=== PATIENT | female | born 1935 | race Caucasian/White ===

== ENCOUNTER 2017-08-17 12:28 | Observation (INO) | payer MEDICARE ==
[~2017-08-17] VITALS: Ht 152.4 cm; Wt 103.6 kg
[~2017-08-17 12:28] MED LIST: CEFU250T11 PO; CITA20TA4; ESCT10T PO; HYDR-3729 PO; OXYB10TA8; WARF2TAB8; WARF4TAB PO; WRF5T
--- OUTSIDE RECORDS SUMMARY | 2017-08-17 12:33 | XMS REPORT | Continuity of Care Document ---
Author Author [facility] Organization [facility] Address Unknown Phone Unavailable Allergies Active Description Code Type Severity Reaction Onset Reported/Identified Relationship to Patient Clinical Status Yes Penicillins [id number] Drug Allergy Mild N/A 01/17/2009 Medications There is no data. 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 10/04/2014 SHREYAS THEODORE APRN Ot V12.55 PERSONAL HISTORY OF PULMONARY EMBOLISM 10/04/2014 SHREYAS THEODORE APRN Ot V58.61 ANTICOAGULANTS,LT,CURRENT USE 07/18/2015 ESTEBAN VALDERRAMA ANDREW L Ot S22.42XA MULTIPLE FRACTURES OF RIBS, LEFT SIDE, I 07/18/2015 ESTEBAN VALDERRAMA ANDREW L Ot W01.0XXA FALL SAME LEV FROM SLIP/TRIP W/O STRIKE 07/18/2015 ESTEBAN VALDERRAMA ANDREW L Ot Y92.012 BATHROOM OF SINGLE-FAMILY (PRIVATE) HOUS 07/18/2015 ESTEBAN VALDERRAMA ANDREW L Ot Y99.8 OTHER EXTERNAL CAUSE STATUS 10/18/2015 PAULO DALEY, YADI Betts Ot S39.93XA UNSPECIFIED INJURY OF PELVIS, INITIAL EN 10/18/2015 PAULO DALEY, YADI Betts Ot W19.XXXA UNSPECIFIED FALL, INITIAL ENCOUNTER 10/18/2015 PAULO DALEY, YADI Betts Ot Y99.8 OTHER EXTERNAL CAUSE STATUS 10/26/2015 PAULO DALEY, YADI Betts Ot S39.93XA UNSPECIFIED INJURY OF PELVIS, INITIAL EN 10/26/2015 PAULO DALEY, YADI Betts Ot W19.XXXA UNSPECIFIED FALL, INITIAL ENCOUNTER 10/26/2015 PAULO DALEY, YADI Betts Ot Y99.8 OTHER EXTERNAL CAUSE STATUS 10/26/2015 PAULO DALEY, YADI Betts Ot S39.93XA UNSPECIFIED INJURY OF PELVIS, INITIAL EN 10/26/2015 PAULO DALEY, YADI Betts Ot W19.XXXA UNSPECIFIED FALL, INITIAL ENCOUNTER 10/26/2015 PAULO DALEY, YADI Betts Ot Y99.8 OTHER EXTERNAL CAUSE STATUS 11/09/2015 PAULO DALEY, YADI Betts Ot S39.93XA UNSPECIFIED INJURY OF PELVIS, INITIAL EN 11/09/2015 PAULO DALEY, YADI Betts Ot W19.XXXA UNSPECIFIED FALL, INITIAL ENCOUNTER 11/09/2015 PAULO DALEY, YADI Betst Ot Y99.8 OTHER EXTERNAL CAUSE STATUS 11/15/2015 PAULO DALEY, YADI Betts Ot S39.93XA UNSPECIFIED INJURY OF PELVIS, INITIAL EN 11/15/2015 PAULO DALEY, YADI Betts Ot W19.XXXA UNSPECIFIED FALL, INITIAL ENCOUNTER 11/15/2015 PAULO DALEY, YADI Betts Ot Y99.8 OTHER EXTERNAL CAUSE STATUS Procedures There is no data. Results There is no data. Encounters ACCT No. Visit Date/Time Discharge Status Pt. Type Provider Facility Loc./Unit Complaint [id number] 10/17/2015 15:09:00 10/17/2015 23:59:59 CLS Outpatient YADI BATES MD [facility] RAD GROIN [id number] 07/18/2015 11:04:00 07/18/2015 11:56:00 DIS Emergency ANDREW ORELLANA DO [facility] ER [id number] 10/04/2014 12:11:00 10/04/2014 16:32:00 DIS Emergency HSREYAS THEODORE APRN [facility] ER [id number] 01/30/2011 14:12:00 Document Registration [id number] 12/04/2009 07:58:00 Document Registration
--- NOTE | 2017-08-17 12:49 | ED Fall/Injury ---
General Chief Complaint: Trauma-Non Activation Stated Complaint: FALL Source: patient Exam Limitations: no limitations History of Present Illness Date Seen by Provider: Aug 17, 2017 Time Seen by Provider: 12:47 Initial Comments to ER with reports of a fall. [place] at the hair salon when she tripped over the curb. She landed face first and has a large hematoma over the left eyebrow. No loss of consciousness, no neck pain. She is on warfarin for history of DVT. She has an abrasion to the dorsal aspect of the left proximal forearm. No hip pain or other extremity pain. Complains of left upper arm pain. Occurred: just prior to arrival Severity: moderate Injuries/Pain Location: head, upper extremity Context: unknown Loss of Consciousness: no loss of consciousness Associated Symptoms (Fall): No Confusion, No Headache, No Neck Pain Allergies and Home Medications Allergies Coded Allergies: Penicillins (Verified Allergy, Mild, 08/17/17) Home Medications Cholecalciferol (Vitamin D3) 2,000 Unit Capsule, 2,000 UNIT PO DAILY, (Reported) Citalopram Hydrobromide 20 Mg Tablet, 20 MG PO DAILY, (Reported) Hydrocodone/Acetaminophen 1 Each Tablet, 0.5-1 EACH PO Q4H PRN for PAIN-SEVERE Prescribed by: SHREYAS THEODORE on 08/17/17 1429 Ondansetron 8 Mg Tab.rapdis, 8 MG PO Q6H PRN for NAUSEA/VOMITING-1ST LINE Prescribed by: SHREYAS THEODORE on 08/17/17 1429 Oxybutynin Chloride 10 Mg Tab.er.24, 10 MG PO DAILY, (Reported) Warfarin Sodium 2 Mg Tablet, 5 MG PO DAILY, (Reported) TAKES 2 & 1/2 (2MG) TABLET Patient Home Medication List Home Medication List Reviewed: Yes Review of Systems Constitutional: see HPI Eyes: No Symptoms Reported Ears, Nose, Mouth, Throat: no symptoms reported Respiratory: no symptoms reported Cardiovascular: no symptoms reported Genitourinary: no symptoms reported Musculoskeletal: see HPI Skin: no symptoms reported Psychiatric/Neurological: No Symptoms Reported Past Wrtupug-Oaxgcg-Amerbe Hx Past Medical History Abdominal, Appendectomy, Orthopedic Diverticulosis Arthritis Cataract Anxiety, Depression Physical Exam Vital Signs Vital Signs - First Documented 08/17/17 12:54 Temp 98.1 Pulse 78 Resp 18 B/P (MAP) 137/79 (98) Pulse Ox 92 O2 Delivery Room Air Capillary Refill : General Appearance: WD/WN, no apparent distress HEENT: PERRL/EOMI, normal ENT inspection, other (large hematoma without laceration over the left forehead just above the eyebrow) Neck: non-tender, full range of motion Cardiovascular: regular rate, rhythm, no murmur Respiratory: normal breath sounds, no respiratory distress, no accessory muscle use Gastrointestinal: normal bowel sounds, non tender Extremities: normal range of motion, non-tender, other (abrasion posterior aspect proximal left forearm. No tenderness at the elbow. No tenderness in the forearm. No tenderness of the hand. There is tenderness of the shoulder. Limited range of motion at the shoulder.) Neurologic/Psychiatric: alert, normal mood/affect, oriented x 3 Skin: normal color, warm/dry Whiting Coma Score Best Eye Response: (4) Open Spontaneously Best Verbal Response: (5) Oriented Best Motor Response: (6) Obeys Commands Whiting Total: 15 Progress/Results/Core Measures Results/Orders Lab Results Laboratory Tests Test 08/17/17 12:43 Range/Units White Blood Count 4.5 4.3-11.0 10^3/uL Red Blood Count 3.97 L 4.35-5.85 10^6/uL Hemoglobin 13.3 11.5-16.0 G/DL Hematocrit 39 35-52 % Mean Corpuscular Volume 98 80-99 FL Mean Corpuscular Hemoglobin 34 25-34 PG Mean Corpuscular Hemoglobin Concent 34 32-36 G/DL Red Cell Distribution Width 13.7 10.0-14.5 % Platelet Count 197 130-400 10^3/uL Mean Platelet Volume 9.4 7.4-10.4 FL Neutrophils (%) (Auto) 61 42-75 % Lymphocytes (%) (Auto) 27 12-44 % Monocytes (%) (Auto) 9 0-12 % Eosinophils (%) (Auto) 3 0-10 % Basophils (%) (Auto) 0 0-10 % Neutrophils # (Auto) 2.7 1.8-7.8 X 10^3 Lymphocytes # (Auto) 1.2 1.0-4.0 X 10^3 Monocytes # (Auto) 0.4 0.0-1.0 X 10^3 Eosinophils # (Auto) 0.1 0.0-0.3 10^3/uL Basophils # (Auto) 0.0 0.0-0.1 10^3/uL Prothrombin Time 29.8 H 12.2-14.7 SEC INR Comment 2.8 H 0.8-1.4 Sodium Level 141 135-145 MMOL/L Potassium Level 4.8 3.6-5.0 MMOL/L Chloride Level 110 H 98-107 MMOL/L Carbon Dioxide Level 21 21-32 MMOL/L Anion Gap 10 5-14 MMOL/L Blood Urea Nitrogen 16 7-18 MG/DL Creatinine 0.99 0.60-1.30 MG/DL Estimat Glomerular Filtration Rate 54 BUN/Creatinine Ratio 16 Glucose Level 100 70-105 MG/DL Calcium Level 9.2 8.5-10.1 MG/DL My Orders Orders - SHREYAS THEODORE APRN Cbc With Automated Diff (08/17/17 12:34) Basic Metabolic Panel (08/17/17 12:34) Protime With Inr (08/17/17 12:34) Ct Head/Cervical Spine Wo (08/17/17 12:34) Chest 1 View, Ap/Pa Only (08/17/17 12:34) Humerus, Left, 2 Views (08/17/17 12:34) Iv Heplock-Insert (Order) (08/17/17 12:34) Ondansetron Injection (Zofran Injectio (08/17/17 14:30) Hydrocodone/Apap 5/325 Tablet (Lortab 5 (08/17/17 14:30) Ondansetron Oral Dissolve Tab (Zofran (08/17/17 14:31) Medications Given in ED Current Medications Medications Dose Ordered Sig/Ben Route Start Time Stop Time Status Last Admin Dose Admin Acetaminophen/ Hydrocodone Bitart 0.5 tab ONCE ONCE PO 08/17/17 14:30 08/17/17 14:31 DC 08/17/17 14:38 0.5 TAB Ondansetron HCl 4 mg STK-MED ONCE .ROUTE 08/17/17 14:31 08/17/17 14:33 DC 08/17/17 14:39 4 MG Vital Signs/I&O 08/17/17 08/17/17 12:54 13:03 Temp 98.1 98.1 Pulse 78 78 Resp 18 18 B/P (MAP) 137/79 (98) 137/79 (98) Pulse Ox 92 92 O2 Delivery Room Air Diagnostic Imaging Diagonstic Imaging: CT Comments NAME: AYAN BOGGS [facility] REC#: [id number] PT STATUS: REG ER : 1935 PHYSICIAN: SHREYAS THEODORE APRN ADMIT DATE: 08/17/17/ER Draft Date of Exam:08/17/17 CT HEAD/CERVICAL SPINE WO PROCEDURE: CT head and CT cervical spine without contrast. TECHNIQUE: Multiple contiguous axial images were obtained through the brain and cervical spine without the use of intravenous contrast. Sagittal and coronal reformations through the cervical spine were then performed. INDICATION: Fall. COMPARISON: 01/30/2011. FINDINGS: Head CT: No acute intracranial hemorrhage, mass effect, or edema is seen. There is moderate diffuse atrophy. The ventricles appear normal. There is prominent hypodensity throughout the periventricular and subcortical white matter which is increased from 2010 and is nonspecific but probably related to chronic microvascular ischemic disease. There is a large left frontal scalp hematoma. No acute fracture is suspected. The paranasal sinuses and mastoids are clear, as visualized. Cervical spine CT: No acute fracture or osseous destructive process is seen. There is minimal anterior subluxation of C6 on C7 which is likely degenerative. Vertebral body heights are maintained. There is severe disc space disease and moderate spondylosis at C5/C6 and C6/C7. Uncovertebral joint spurring and facet arthropathy results in some central and izxkhtbl-fo-parvol foraminal narrowing at these levels. No acute soft tissue abnormality is seen. IMPRESSION: 1. No evidence of an acute intracranial abnormality. Large left frontal scalp hematoma. Chronic changes, as described above. 2. No evidence of an acute cervical spine fracture. Degenerative changes, as described above. Dictated on workstation # [id number] Dict: 08/17/17 1328 Trans: 08/17/17 1334 [id number] [id number] Interpreted by: ARVIN JUAREZ DO Electronically signed by: NAME: AYAN BOGGS [facility] REC#: [id number] PT STATUS: REG ER : 1935 PHYSICIAN: SHREYAS THEODORE APRN ADMIT DATE: 08/17/17/ER Draft Date of Exam:08/17/17 HUMERUS, LEFT, 2 VIEWS Indication: Shoulder pain after fall. Findings: There appears be a nondisplaced fracture of the left humeral head and neck. There is slight cortical irregularity both medially and laterally. Distal humerus appears be intact. Impression: Findings suspect for minimally displaced fracture of the left humeral head and neck. Dictated on workstation # [id number] Dict: 08/17/17 1354 Trans: 08/17/17 1358 [id number] [id number] Interpreted by: CHAKA CORONADO MD Electronically signed by: Departure Communication (Admissions) 1425- she reports a little nausea, no vomiting GCS remains 15. X-ray shows minimally displaced proximal humerus fracture. We'll place her in a sling. She lives at home alone but her niece is coming to the hospital and I'll discuss having the patient stay with the knees or the knee stay with the patient for head injury observation for at least the next 24 hours. 1515- patient's nieces are here. I did discuss the plan with them. They agree to stay with her for 24 hours to observe and return her to the emergency room for any severe headache, vomiting or confusion. 1630-patient feels that she should be admitted for observation, she is very concerned about her head injury.I spoke with Dr. Acharya. Agrees to admit for observation. Impression Primary Impression: Fracture of proximal end of left humerus Additional Impressions: Scalp hematoma Closed head injury Disposition: ADMITTED INPATIENT Condition: Stable Departure-Patient Inst. Decision time for Depature: 14:27 Referrals: YADI ACHARYA MD (PCP/Family) Primary Care Physician Patient Instructions: HEMATOMA, Upper Arm Fracture Add. Discharge Instructions: 1. Wear the sling at all times except when showering. Pain medication as directed. Return promptly to ER for any severe headache, confusion, any other concerns. Follow-up with your doctor this week and call this week to make an appointment with orthopedics. You may call orthopedic surgeon of your choosing though treatment for this will likely be nonoperative. All discharge instructions reviewed with patient and/or family. Voiced understanding. Scripts Ondansetron (Zofran Odt) 8 Mg Tab.rapdis 8 MG PO Q6H PRN for NAUSEA/VOMITING-1ST LINE, #10 TAB Prov: SHREYAS THEODORE RESEARCH PROFESSOR 08/17/17 Hydrocodone/Acetaminophen (Beaver 5-325 Tablet) 1 Each Tablet 0.5-1 EACH PO Q4H PRN for PAIN-SEVERE, #20 TAB Prov: SHREYAS THEODORE APRN 08/17/17 Copy Copies To 1: YADI ACHARYA MD, PETER J APRN Aug 17, 2017 12:49
[2017-08-17 12:52] LABS: BASOPHILS % (AUTO) 0 % (0-10); EOSINOPHILS # (AUTO) 0.1 10^3/uL (0.0-0.3); EOSINOPHILS % (AUTO) 3 % (0-10); HEMATOCRIT 39 % (35-52); HEMOGLOBIN 13.3 G/DL (11.5-16.0); LYMPHOCYTES # (AUTO) 1.2 X 10^3 (1.0-4.0); LYMPHOCYTES % (AUTO) 27 % (12-44); MEAN CORPUSCULAR HEMOGLOBIN 34 PG (25-34); MEAN CORPUSCULAR HGB CONC 34 G/DL (32-36); MEAN CORPUSCULAR VOLUME 98 FL (80-99); MEAN PLATELET VOLUME 9.4 FL (7.4-10.4); MONOCYTES # (AUTO) 0.4 X 10^3 (0.0-1.0); MONOCYTES % (AUTO) 9 % (0-12); NEUTROPHILS # (AUTO) 2.7 X 10^3 (1.8-7.8); NEUTROPHILS % (AUTO) 61 % (42-75); PLATELET COUNT 197 10^3/uL (130-400); RED BLOOD COUNT 3.97 10^6/uL (4.35-5.85); RED CELL DISTRIBUTION WIDTH 13.7 % (10.0-14.5); WHITE BLOOD COUNT 4.5 10^3/uL (4.3-11.0)
[2017-08-17 13:03] LABS: INR 2.8 (0.8-1.4); PROTHROMBIN TIME PATIENT 29.8 SEC (12.2-14.7)
[2017-08-17 13:08] LABS: CALCIUM 9.2 MG/DL (8.5-10.1); CREATININE SERUM 0.99 MG/DL (0.60-1.30); POTASSIUM 4.8 MMOL/L (3.6-5.0)
--- NOTE | 2017-08-17 13:35 | Diagnostic Imaging Report ---
PROCEDURE: CT head and CT cervical spine without contrast. TECHNIQUE: Multiple contiguous axial images were obtained through the brain and cervical spine without the use of intravenous contrast. Sagittal and coronal reformations through the cervical spine were then performed. INDICATION: Fall. COMPARISON: 01/30/2011. FINDINGS: Head CT: No acute intracranial hemorrhage, mass effect, or edema is seen. There is moderate diffuse atrophy. The ventricles appear normal. There is prominent hypodensity throughout the periventricular and subcortical white matter which is increased from 2010 and is nonspecific but probably related to chronic microvascular ischemic disease. There is a large left frontal scalp hematoma. No acute fracture is suspected. The paranasal sinuses and mastoids are clear, as visualized. Cervical spine CT: No acute fracture or osseous destructive process is seen. There is minimal anterior subluxation of C6 on C7 which is likely degenerative. Vertebral body heights are maintained. There is severe disc space disease and moderate spondylosis at C5/C6 and C6/C7. Uncovertebral joint spurring and facet arthropathy results in some central and jwztfbsn-rz-atswqf foraminal narrowing at these levels. No acute soft tissue abnormality is seen. IMPRESSION: 1. No evidence of an acute intracranial abnormality. Large left frontal scalp hematoma. Chronic changes, as described above. 2. No evidence of an acute cervical spine fracture. Degenerative changes, as described above. Dictated by: Dictated on workstation # [id number]
--- NOTE | 2017-08-17 13:56 | Diagnostic Imaging Report ---
Indication: Low back pain Comparison made with prior examination of 10/04/2014. Findings: There is cardiomegaly. There is some mild venous congestion. No pleural effusion or pneumothorax. Mediastinum is unremarkable. Impression: Cardiomegaly and mild central pulmonary venous congestion. Dictated by: Dictated on workstation # [id number]
--- NOTE | 2017-08-17 13:58 | Diagnostic Imaging Report ---
Indication: Shoulder pain after fall. Findings: There appears be a nondisplaced fracture of the left humeral head and neck. There is slight cortical irregularity both medially and laterally. Distal humerus appears be intact. Impression: Findings suspect for minimally displaced fracture of the left humeral head and neck. Dictated by: Dictated on workstation # [id number]
[2017-08-17] MEDS ORDERED: ONDA8TAB9 PO (14:29)
[2017-08-17] MEDS ORDERED: HYDR-757 PO (14:29)
[2017-08-17] MEDS ORDERED: HYDROcodone/APAP 5 MG/325 MG (LORTAB) TAB PO ONE (14:30)
[2017-08-17] MEDS ORDERED: ONDANSETRON 4 MG/2 ML (SDV) Z0FRAN IVP ONE (14:30)
[2017-08-17] MEDS ORDERED: ONDANSETRON 4 MG (ZOFRAN) ORAL DISSOLVE TAB ONE (14:31)
[2017-08-17] MEDS ORDERED: ONDANSETRON 4 MG/2 ML (SDV) Z0FRAN IV PRN (16:45)
[2017-08-17] MEDS ORDERED: CATHETER FLUSH 10 ML SYR IV PRN (16:45)
[2017-08-17 16:46] VITALS: BP 176/77
[2017-08-17] MEDS: NS IV 1000 ML 1,000 ML IV SCH (17:31)
[2017-08-17 19:00] VITALS: BP 143/67
[2017-08-17] MEDS: HYDROcodone/APAP 5 MG/325 MG (LORTAB) TAB PO PRN (21:58)
[2017-08-18] VITALS: BP 136/62
[2017-08-18] MEDS: NS IV 1000 ML 1,000 ML IV SCH ×2 (02:45→14:05)
[2017-08-18 04:00] VITALS: BP 154/71
[2017-08-18 06:02] LABS: BASOPHILS % (AUTO) 0 % (0-10); EOSINOPHILS # (AUTO) 0.1 10^3/uL (0.0-0.3); EOSINOPHILS % (AUTO) 1 % (0-10); HEMATOCRIT 34 % (35-52); HEMOGLOBIN 11.2 G/DL (11.5-16.0); LYMPHOCYTES # (AUTO) 0.9 X 10^3 (1.0-4.0); LYMPHOCYTES % (AUTO) 16 % (12-44); MEAN CORPUSCULAR HEMOGLOBIN 33 PG (25-34); MEAN CORPUSCULAR HGB CONC 33 G/DL (32-36); MEAN CORPUSCULAR VOLUME 99 FL (80-99); MEAN PLATELET VOLUME 9.5 FL (7.4-10.4); MONOCYTES # (AUTO) 0.7 X 10^3 (0.0-1.0); MONOCYTES % (AUTO) 13 % (0-12); NEUTROPHILS # (AUTO) 3.9 X 10^3 (1.8-7.8); NEUTROPHILS % (AUTO) 70 % (42-75); PLATELET COUNT 184 10^3/uL (130-400); RED BLOOD COUNT 3.43 10^6/uL (4.35-5.85); RED CELL DISTRIBUTION WIDTH 13.8 % (10.0-14.5); WHITE BLOOD COUNT 5.6 10^3/uL (4.3-11.0)
[2017-08-18 06:09] LABS: INR 2.8 (0.8-1.4); PROTHROMBIN TIME PATIENT 29.5 SEC (12.2-14.7)
[2017-08-18] MEDS: HYDROcodone/APAP 5 MG/325 MG (LORTAB) TAB PO PRN ×2 (08:13→16:31)
[2017-08-18 08:19] VITALS: BP 127/60
--- NOTE | 2017-08-18 08:50 | History & Physical-Hospitalist ---
History of Present Illness HPI/Chief Complaint Mrs. nunez is an 82-year-old white female who reports she was in her usual state of health until leaving the [employer] shop the afternoon of the fourth. She tripped falling on outstretched left arm hit the right side of her for head. She doesn't believe she lost consciousness but was dazed by the fall and noted significant left shoulder pain and left for head pain. She was brought to the emergency room where was noted that she had a minimally displaced left humeral head fracture and a large left forehead hematoma. 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 Her INR was 2.[address] head scan revealed no intracranial pathology just a large left forehead and periorbital hematoma. She was going to be discharged from the emergency room but became very lightheaded and weak apparently just trying to get into the car from the wheelchair and stated that there was no way she is going to be in the care for herself at home. She reported no previous problems lightheadedness chest discomfort palpitations or falls. She was subsequently admitted on observation status. Date Seen 08/18/17 Time Seen by Provider: 08:00 Attending Physician Yadi Bates MD PCP Yadi Bates MD Referring Physician Date of Admission Aug 17, 2017 at 16:07 Home Medications & Allergies Home Medications Reviewed patient Home Medication Reconciliation performed by pharmacy medication reconciliations testing and regulating technician and/or nursing. Patients Allergies have been reviewed. Allergies Allergies Coded Allergies Penicillins (Verified Allergy, Mild, 08/17/17) Past Znanoft-Ehqgxh-Booufa Hx Past Med/Social Hx: Reviewed and Corrections made Patient Social History Alcohol Use: Denies Use Recreational Drug Use: No Smoking Status: Never a Smoker Physical Abuse Screen: No Sexual Abuse: No Recent Foreign Travel: No Contact w/other who traveled: No Recent Hopitalizations: No Recent Infectious Disease Expo: No Seasonal Allergies Seasonal Allergies: No Past Medical History Surgeries: Abdominal, Appendectomy, Orthopedic Cardiac: Deep Vein Thrombosis Gastrointestinal: Gastroesophageal Reflux, Diverticulosis Musculoskeletal: Arthritis HEENT: Cataract Psychosocial: Anxiety, Depression History of Blood Disorders: Yes (DVT/PE) Family History Cardiovascular disease G8 BROTHER Hypertension G8 BROTHER Myocardial infarction 19 MOTHER Respiratory disorder 19 FATHER G8 BROTHER Review of Systems Constitutional: see HPI; No chills, No diaphoresis; dizziness; No fever, No malaise; weakness Cardiovascular: no symptoms reported, see HPI Gastrointestinal: other (Patient denies nausea vomiting diarrhea constipation or bright red blood per rectum no melena either.) Physical Exam Physical Exam Vital Signs Vital Signs - First Documented 08/17/17 12:54 Temp 98.1 Pulse 78 Resp 18 B/P (MAP) 137/79 (98) Pulse Ox 92 O2 Delivery Room Air Capillary Refill : Less Than 3 SecondsLess Than 3 Seconds General Appearance: Mild Distress, Obese HEENT: Other (Left forehead and left periorbital swelling. The eyes swollen shut and purple unable to evaluate vision but it been normal previous to this morning right pupil 4 mm reactive unremarkable conjunctivae on the right.) Neck: Full Range of Motion Respiratory: Chest Non Tender, Lungs Clear, Normal Breath Sounds, No Accessory Muscle Use, No Respiratory Distress Cardiovascular: Regular Rate, Rhythm, No Gallop, No JVD, Normal Peripheral Pulses, Other (2/6 systolic ejection murmur heard best at the left lower sternal border and second right intercostal space without evidence for pulsus parvus or tardus.) Extremity: Normal Capillary Refill, Non Tender, Other (Trace bilateral pedal edema no evidence for venous insufficiency with small vessel varicosities.) Results Results/Procedures Labs Laboratory Tests 08/17/17 12:43 08/18/17 05:21 Patient resulted labs reviewed. Assessment/Plan Admission Diagnosis /P1. Status post fall resulting in left minimally displaced humeral head fracture and large left forehead and periorbital contusion. The patient is at baseline a frail 82 and lives alone at home. She does have someone who can stay with her starting tomorrow. Will DC IV fluids have this a.m. consult physical therapy to evaluate gait and instruction with the usage of a cane. She will require the usage of a sling for 4-6 weeks and when necessary pain medication. Will plan discharge tomorrow when family can be available to stay with her for several days. 2. 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 3. Overactive bladder will resume at bedtime Ditropan tonight. Admission Status: Observation Reason for Inpatient Admission: See above Clinical Quality Measures DVT/VTE Risk/Contraindication: Risk Factor Score Per Nursin RFS Level Per Nursing on Admit: 4+=Very High YADI BATES MD Aug 18, 2017 08:50
[2017-08-18] MEDS ORDERED: CITA20TA9 PO (09:13)
[2017-08-18] MEDS ORDERED: OXYB10TA PO (09:13)
[2017-08-18] MEDS ORDERED: CHOL20003 PO (09:13)
[2017-08-18] MEDS ORDERED: WARF2TAB8 PO (09:13)
--- NOTE | 2017-08-18 11:07 | Physical Therapy Evaluation ---
PT Evaluation-General Medical Diagnosis Admission Date Aug 17, 2017 at 16:07 Medical Diagnosis: left humeral fracture/closed head injury Onset Date: Aug 17, 2017 Therapy Diagnosis Therapy Diagnosis: generalized weakness/debility Height/Weight Height (Feet): 5 Height (Inches): 0.00 Weight (Pounds): 228 Weight (Ounces): 8.0 Precautions Precautions/Isolations: Fall Prevention, Standard Precautions Weight Bear Status Right Lower Extremity: Right Weight Bearing/Tolerated Left Lower Extremity: Left Weight Bearing/Tolerated Referral Physician: Marck Reason for Referral: Evaluation/Treatment Medical History Pertinent Medical History: Arthritis Current History tripped over curb coming out of hair appointment resulting in left proximal humeral fracture and facial hematoma Reviewed History: Yes Social History Home: Apartment Current Living Status: Alone Entry Into Home: Level Entry Prior/Core FIM Prior Level of Function Functional [place] Measure 0=Not Assessed/NA 4=Minimal Assistance 1=Total Assistance 5=Supervision or Setup 2=Maximal Assistance 6=Modified [place] 3=Moderate Assistance 7=Complete [place] Bed Mobility: 7 Transfers (B,C,W/C) (FIM): 7 Gait: [address] PT Evaluation-Current Subjective Patient agrees to PT. Pain Numeric Pain Scale: 5-Moderate Pain Location: Left Location Body Site: Shoulder Pain Description: Acute Objective Patient Orientation: Normal For Age Problem Solving: Fair ROM/Strength ROM Lower Extremities bilateral LE WNL Strength Lower Extremities 4/5 grossly bilateral LE Integumentary/Posture Integumentary refer to nursing notes Transfers Functional [place] Measure 0=Not Assessed/NA 4=Minimal Assistance 1=Total Assistance 5=Supervision or Setup 2=Maximal Assistance 6=Modified [place] 3=Moderate Assistance 7=Complete [place] Transfers (B, C, W/C) (FIM): 5 Scootin Supine to/from Sit: 5 Sit to/from Stand: 5 Gait Mode of Locomotion: Walk Anticipated Mode of Locomotion: Walk Gait (FIM): 5 Distance (FIM): 3=150 ft Distance: 150' Gait Level of Assist: 5 Gait Assistive Device: Cane Small Base Quad Comments/Gait Description slow, decreased tasia and gait sequence (patient has SBQC established at home ) Balance Sitting Static: Normal Sitting Dynamic: Normal Standing Static: Fair Standing Dynamic: Fair Assessment/Needs 82 y.o. female, will be seen short term by skilled PT to address functional mobility to ensure safe return to home with niece. Patient has no c/o or concerns. Rehab Potential: Fair PT Short Term Goals Short Term Goals Time Frame: Aug 21, 2017 Transfers (B,C,W/C) (FIM): 5 Gait (FIM): 5 Distance (FIM): 3=150 ft Gait Assistive Device: Cane Single Point, Cane Small Base Quad PT Plan Treatment/Plan Treatment Plan: Continue Plan of Care Treatment Plan: Bed Mobility, Education, Functional Activity Cintia, Functional Strength, Gait, Safety, Therapeutic Exercise, Transfers Treatment Duration: Aug 21, 2017 Frequency: 4 times per week Estimated Hrs Per Day: .25 hour per day Patient and/or Family Agrees t: Yes Safety Risks/Education Patient Education: Safety Issues Teaching Recipient: Patient Teaching Methods: Discussion Response to Teaching: Verbalize Understanding Discharge Recommendations Therapy D/C Recommendations: Home w/ Family Support Time/GCodes Time In: 1035 Time Out: 1049 Total Billed Treatment Time: 14 Total Billed Treatment 1 visit EVModC 14 min G Codes Necessary: Yes PT/OT Therapy GCodes Therapy Functional Limitation: Physical Therapy Test(s)/Tool used to determine: Level of Assistance Scale Functional Limitation-Current Charge Code: MOBCUR Modifier: CJ Functional Limitation-Goal Charge Code: MOBGOAL Modifier: SALOME DIXON PT Aug 18, 2017 11:06
--- NOTE | 2017-08-18 11:40 | Occupational Therapy Eval ---
OT Evaluation-General/PLF Medical Diagnosis Admission Date Aug 17, 2017 at 16:07 Medical Diagnosis: left humeral fracture/closed head injury Onset Date: Aug 17, 2017 Therapy Diagnosis Therapy Diagnosis: Weakness, decreased ADL skills Height/Weight Height (Feet): 5 Height (Inches): 0.00 Weight (Pounds): 228 Weight (Ounces): 8.0 Precautions Precautions/Isolations: Fall Prevention, Standard Precautions Safety Interventions: Bed Exit Alarm Weight Bear Status Non weight bearing in left UE. Sling on when out of bed. Referral Physician: Marck Referral Reason: Activity Tolerance, Self Care, Evaluation/Treatment, Strengthening/ROM Medical History Pertinent Medical History: Arthritis Additional Medical History Diverticulosis, anxiety, cataracts Current History Pt. fell coming out of hair salon. Hit her head and fx her left humeral head and neck. Reviewed History: Yes Social History Home: Apartment Current Living Status: Alone Entry Into Home: Level Entry ADL-Prior Level of Function ADL PLOF Comments Pt. states that she was fully independent with all ADLs. Lives on her own. Has a walker and cane but does not use it. DME/Equipment Comments walker and cane. Drive Self: Yes OT Current Status Subjective Pt. does not report pain level. Appearance Pt. in bed. Agrees to work with OT. Mental Status/Objective Patient Orientation: Person, Place, Time, Situation Attachments: IV Current Glasses/Contacts: Yes Hand Dominance: Right Upper Extremity ROM WFL- Right UE No movement- Left UE Edema: Pt. has swelling in left UE. Left UE in sling. Pt. is educated on positioning left UE on pillows while in bed, without sling on for comfort. ADL-Treatment Functional [place] Measure 0=Not Assessed/NA 4=Minimal Assistance 1=Total Assistance 5=Supervision or Setup 2=Maximal Assistance 6=Modified [place] 3=Moderate Assistance 7=Complete IndependenceIRFPAI Quality Coding Scale 6 Independent with activity with or without an assistive device 5 Patient requires set up or clean up by helper. Patient completes activity by themselves 4 Supervision or touching assist (CGA). [place] provide cues , steadying assist 3 The helper provides less than half the effort to complete the activity 2 The helper provides more than half the effort to complete the activity 1 Dependent. The helper does all the effort to complete an activity 7 Patient refused to complete or attempt activity 9 The patient did not perform the activity before the current illness or injury 88 Not attempted due to Medical conditions or safety concerns Transfers (B, C, W/C) (FIM): 3 (Pt. requires mod assist for supine-sit and sit- stand. Min assist to ambulate to bathroom. Pt. requests to sit for awhile to see if she can have a BM. Pt. given call cord.) Toilet/Commode Transfer (FIM): 4 OT encourages pt. to shower. Pt. states, "I would really rather not today." Pt. does transfer supine-sit, and sit-supine with mod assist. OT gathers ice and clean pillow cases to re-position pt. Pt. then requests to ambulate to the bathroom, as she has to have BM. Transfers again supine-sit with mod assist, and ambulated to bathroom. Pt. in bathroom with all needs met, and encouraged to pull call string when done. Pt. verbalizes understanding. Other Treatments Pt. states that her niece is coming to stay with her tomorrow, and will be with her all the time. Pt. is educated on wearing loose, bagging shirts at home, and technique for putting them on. Pt. is also educated on toilet tongs, and using appropriate shoes at home that will be easy for slip on and off. Education OT Patient Education: Correct positioning, Modified ADL techniques, Progress toward Goal/Update tx plan, Purpose of tx/functional activities, Reviewed precautions, Rehab process, Transfer techniques Teaching Recipient: Patient Teaching Methods: Demonstration, Discussion Response to Teaching: Verbalize Understanding, Return Demonstration OT Short Term Goals Short Term Goals Time Frame: Aug 25, 2017 Eating(FIM): 5 Grooming(FIM): 5 Bathing(FIM): 4 Upper Body Dressing(FIM): 4 Lower Body Dressing(FIM): 5 Toileting(FIM): 5 Transfers (B,C,W/C) (FIM): 5 Toilet/Commode Transfer(FIM): 5 Shower Transfer(FIM): 5 Additional Short Term Goals: 1-Demonstrate ADL Tasks, 2-Verbalize Understanding , 3-ImproveStrength/Cintia 1=Demonstrate adherence to instructed precautions during ADL tasks. 2=Patient will verbalize/demonstrate understanding of assistive devices/ modifications for ADL. 3=Patient will improve strength/tolerance for activity to enable patient to perform ADL's. OT Casting Sorter Goals Jail Goals Time Frame: Sep 01, 2017 Eating (FIM): 6 Grooming(FIM): 6 Bathing(FIM): 5 Upper Body Dressing(FIM): 6 Lower Body Dressing(FIM): 6 Toileting(FIM): 6 Transfers (B,C,W/C) (FIM): 6 Toilet/Commode Transfer(FIM): 6 Shower Transfer(FIM): 5 Additional Goals: 1-Demonstrate ADL Tasks, 2-Verbalize Understanding, 3- ImproveStrength/Cintia 1=Demonstrate adherence to instructed precautions during ADL tasks. 2=Patient will verbalize/demonstrate understanding of assistive devices/ modifications for ADL. 3=Patient will improve strength/tolerance for activity to enable patient to perform ADL's. OT Education/Plan Problem List/Assessment Assessment: Decreased Activ Tolerance, Dependent Transfers, Impaired Bed Mobility, Impaired Funct Balance, Impaired I ADL's, Impaired Self-Care Skills, Restricted Funct UE ROM Discharge Recommendations Plan/Recommendations: Continue POC Therapy D/C Recommendations: Home w/ Family Support, Occupational Therapy Home Care Target Placement Home with family support. Treatment Plan/Plan of Care Treatment,Training & Education: Yes Patient would benefit from OT for education, treatment and training to promote independence in ADL's, mobility, safety and/or upper extremity function for ADL' s. Plan of Care: ADL Retraining, Functional Mobility Treatment Duration: Sep 01, 2017 Frequency: 5 times per week Estimated Hrs Per Day: .25 hour per day Agreement: Yes Rehab Potential: Good Time/GCodes Start Time: 09:15 Stop Time: 09:50 Total Time Billed (hr/min): 35 Billed Treatment Time 1, EVM x 15minutes, ADL x 20minutes PT/OT Therapy GCodes Therapy Functional Limitation: Physical Therapy Test(s)/Tool used to determine: Level of Assistance Scale Functional Limitation-Current Charge Code: MOBCUR Modifier: JYOTHI Functional Limitation-Goal Charge Code: MOBGOKAYLEIGH Modifier: CURT KEITA OT Aug 18, 2017 11:40
[2017-08-18 12:00] VITALS: BP 137/60
[2017-08-18 15:25] VITALS: BP 147/66
[2017-08-18] MEDS ORDERED: warFARin 2 MG (COUMADIN) TAB PO SCH (18:00)
[2017-08-18 19:20] VITALS: BP 138/60
[2017-08-18] MEDS ORDERED: OXYBUTYNIN (DITROPAN) 5 MG TAB PO ONE (21:00)
[2017-08-19 00:06] VITALS: BP 143/66
[2017-08-19 04:26] VITALS: BP 129/93
[2017-08-19 08:25] VITALS: BP 148/67
[2017-08-19] MEDS: HYDROcodone/APAP 5 MG/325 MG (LORTAB) TAB PO PRN (11:51)
--- NOTE | 2017-08-19 12:10 | Physical Therapy Daily Note ---
PT Daily Note-Current Subjective Pt laying Supine in bed, Nurse had just left room upon arrival. Pt agrees to PT despite reporting pain in L elbow. Dr Acharya sees pt during tx. Pain Numeric Pain Scale: 8 Location: Left Location Body Site: Elbow Pain Description: Sharp Mental Status Patient Orientation: Person, Place, Time, Situation Attachments: Other-See Comments (Sling for LUE) Transfers Functional [place] Measure 0=Not Assessed/NA 4=Minimal Assistance 1=Total Assistance 5=Supervision or Setup 2=Maximal Assistance 6=Modified [place] 3=Moderate Assistance 7=Complete IndependenceIRFPAI Quality Coding Scale 6 Independent with activity with or without an assistive device 5 Patient requires set up or clean up by helper. Patient completes activity by themselves 4 Supervision or touching assist (CGA). [place] provide cues , steadying assist 3 The helper provides less than half the effort to complete the activity 2 The helper provides more than half the effort to complete the activity 1 Dependent. The helper does all the effort to complete an activity 7 Patient refused to complete or attempt activity 9 The patient did not perform the activity before the current illness or injury 88 Not attempted due to Medical conditions or safety concerns Weight Bearing Right Lower Extremity: Right Weight Bearing/Tolerated Left Lower Extremity: Left Weight Bearing/Tolerated Treatments ROBOT DESIGNER arrives just before breakfast arrives. ROBOT DESIGNER assists pt with opening packaging and getting breakfast and table adjusted , HOB raised. Dr Acharya arrives to check pt. advisernie will have L elbow xrayed to rule out Fx. Pt then gets phone while ROBOT DESIGNER assists getting pt needs met. ROBOT DESIGNER & pt discuss pt questions of need for continued therapy (ARU vs SNF). Advised would consult [employer] Project Manager for ARU to screen for appropriateness. Pt is resting in bed, eating breakfast at end of tx. Pt has all needs met, including call light in hand & table in front of pt. Assessment Current Status: Good Progress Pt reports fatigue and increase in pain in L elbow both at rest and with movement. PT Short Term Goals Short Term Goals Time Frame: Aug 21, 2017 Transfers (B,C,W/C) (FIM): 5 Gait (FIM): 5 Distance (FIM): 3=150 ft Gait Assistive Device: Cane Single Point, Cane Small Base Quad PT Plan Problem List Problem List: Activity Tolerance, Functional Strength, Safety, Balance, Gait Treatment/Plan Treatment Plan: Continue Plan of Care Treatment Plan: Bed Mobility, Education, Functional Activity Cintia, Functional Strength, Gait, Safety, Therapeutic Exercise, Transfers Treatment Duration: Aug 21, 2017 Frequency: 4 times per week Estimated Hrs Per Day: .25 hour per day Patient and/or Family Agrees t: Yes Safety Risks/Education Patient Education: Correct Positioning, Disease Process, Safety Issues Teaching Recipient: Patient Teaching Methods: Discussion Response to Teaching: Verbalize Understanding Time/GCodes Time In: 832 Time Out: 900 Total Billed Treatment Time: 28 Total Billed Treatment 1, FA x2 (28m) G Codes Necessary: No PT/OT Therapy GCodes Therapy Functional Limitation: Physical Therapy Test(s)/Tool used to determine: Level of Assistance Scale Functional Limitation-Current Charge Code: MOBCUR Modifier: CJ Functional Limitation-Goal Charge Code: MOBGOAL Modifier: JORDEN HODGES ROBOT DESIGNER Aug 19, 2017 12:10
--- NOTE | 2017-08-21 11:37 | Discharge Summary-Hospitalist ---
Diagnosis/Chief Complaint Date of Admission Aug 17, 2017 at 16:07 Date of Discharge Aug 19, 2017 at 12:30 Discharge Date: Aug 19, 2017 Admission Diagnosis /P1. Status post fall resulting in left minimally displaced humeral head fracture and large left forehead and periorbital contusion. The patient is at baseline a frail 82 and lives alone at home. She does have someone who can stay with her starting tomorrow. Will DC IV fluids have this a.m. consult physical therapy to evaluate gait and instruction with the usage of a cane. She will require the usage of a sling for 4-6 weeks and when necessary pain medication. Will plan discharge tomorrow when family can be available to stay with her for several days. 2. 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 3. Overactive bladder will resume at bedtime Ditropan tonight. Discharge Summary Discharge Physical Exam Allergies: Coded Allergies: Penicillins (Verified Allergy, Mild, 08/17/17) Vitals & I&Os Vital Signs Date Time Temp Pulse Resp B/P (MAP) Pulse Ox O2 Delivery O2 Flow Rate FiO2 08/19/17 08:25 98.7 74 16 148/67 (94) 94 Room Air General Appearance: Alert, Oriented X3, Cooperative Respiratory: Clear to Auscultation, Normal Air Movement Cardiovascular: Regular Rate, Normal S1, Normal S2, No Murmurs, Gallops Hospital Course Upon leaving the nextsocial patient tripped on uneven pavement falling on her left arm also suffering a significant left forehead contusion. She was noted to have a minimally displaced left humeral neck fracture and left elbow contusion without evidence for fracture in that location. She was going to be discharged and emergency room but required significant assistance and just getting into the car she nearly passed out. She was brought back to the emergency room and subsequent admitted for observation. Following morning her left eye was completely swollen shut with significant purpura. CT had only revealed for head contusion with hematoma no other abnormalities. She was still extremely weak and very unsteady on her feet with no support at home. At baseline she does have obesity and debility and was felt to be a good candidate for transfer to acute rehabilitation for physical therapy and tell independent to go home. She will also require ongoing Coumadin management due to past history of DVTs and pulmonary embolism other than recurrent for which lifelong anticoagulation has been recommended. Labs (last 24 hrs) Patient resulted labs reviewed. Discussion & Recommendations Discharge Planning: <30 minutes discharge planning Discharge Home Medications: Active Scripts Active Zofran Odt (Ondansetron) 8 Mg Tab.rapdis 8 Mg PO Q6H PRN [place] 5-325 Tablet (Hydrocodone/Acetaminophen) 1 Each Tablet 0.5-1 Each PO Q4H PRN Reported Oxybutynin Chloride ER (Oxybutynin Chloride) 10 Mg Tab.er.24 10 Mg PO DAILY Vitamin D3 (Cholecalciferol (Vitamin D3)) 2,000 Unit Capsule 2,000 Unit PO DAILY Citalopram HBr (Citalopram Hydrobromide) 20 Mg Tablet 20 Mg PO DAILY Jantoven (Warfarin Sodium) 2 Mg Tablet 5 Mg PO DAILY TAKES 2 & 1/2 (2MG) TABLET Instructions to patient/family Please see electronic discharge instructions given to patient. Clinical Quality Measures DVT/VTE Risk/Contraindication: Risk Factor Score Per Nursin RFS Level Per Nursing on Admit: 4+=Very High Copy Copies To 1: YADI BATES MD, MARK D MD Aug 21, 2017 11:37
== END 2017-08-19 08:27 ==
LOC: EDUNIT# 12:28 → ER 12:29 → UNDOADMOB 16:07 → INTOOBSV 16:07 → 4TH 16:07 → UNDODISOB 08-19 12:30
PROVIDERS: ADMIT Internal Medicine; ATTEND Internal Medicine
DX: S42.292A Other displaced fracture of upper end of left humerus, initial encounter for closed fracture (principal); S00.83XA Contusion of other part of head, initial encounter; F41.9 Anxiety disorder, unspecified; F32.9 Major depressive disorder, single episode, unspecified; K21.9 Gastro-esophageal reflux disease without esophagitis; N32.81 Overactive bladder; Z79.01 Long term (current) use of anticoagulants; Z79.899 Other long term (current) drug therapy; Z86.718 Personal history of other venous thrombosis and embolism; Z86.711 Personal history of pulmonary embolism; Z88.0 Allergy status to penicillin; W10.1XXA Fall (on)(from) sidewalk curb, initial encounter
CPT/HCPCS: 36415; 70450; 71045; 72125; 73060; 80048; 85025; 85610; G0378

== ENCOUNTER 2017-08-19 10:14 | Inpatient (IN) | payer MEDICARE ==
[~2017-08-19] VITALS: Ht 152.4 cm; Wt 104.9 kg
[~2017-08-19 10:14] MED LIST changes: +CHOL20003 PO; +CITA20TA9 PO; +HYDR-757 PO; +ONDA8TAB9 PO; +OXYB10TA PO; +WARF2TAB8 PO
[2017-08-19 12:46] VITALS: BP 151/71
--- NOTE | 2017-08-19 13:12 | Physical Therapy Evaluation ---
PT Evaluation-General Medical Diagnosis Admission Date Aug 19, 2017 at 12:29 Medical Diagnosis: fall; closed head injury Onset Date: Aug 19, 2017 Therapy Diagnosis Therapy Diagnosis: weakness; abn gait Height/Weight Height (Feet): 5 Height (Inches): 0.00 Weight (Pounds): 228 Weight (Ounces): 8.0 Precautions Precautions/Isolations: Standard Precautions Weight Bear Status Right Lower Extremity: Right Full Weight Bearing Full Weight Bearing Left UE in a sling; NWB. Referral Physician: ronald Reason for Referral: Evaluation/Treatment Medical History Pertinent Medical History: Arthritis, GERD Additional Medical History Hx of DVT, arthritis, anxiety and depression Current History Pt was leaving the hair salon, tripped on the curb and fell sustaining a hematoma to her head and min displaced monalisa humeral head fx. Reviewed History: Yes Social History Home: Apartment ([place]) Current Living Status: Alone Entry Into Home: Level Entry PT Steps Into Home: 0 Prior/Core FIM Prior Level of Function Functional [place] Measure 0=Not Assessed/NA 4=Minimal Assistance 1=Total Assistance 5=Supervision or Setup 2=Maximal Assistance 6=Modified [place] 3=Moderate Assistance 7=Complete [place] Bed Mobility: 7 Transfers (B,C,W/C) (FIM): 7 Gait: [address] and is an active community ambulator. PT Evaluation-Current Subjective Pt reports she fell as she was leaving the salon. Agreeable to PT and acknowledges that rehab will be beneficial to her. Pain Numeric Pain Scale: 4 Location: Left Location Body Site: Shoulder Pain Description: Ache Objective Patient Orientation: Person, Place, Time, Situation Problem Solving: Good ROM/Strength ROM Lower Extremities WNL Strenght Lower Extremities strength is grossly 4/5 t/o B LE Integumentary/Posture Integumentary Refer to nursing notes Bowel Incontinence: No Bladder Incontinence: No Posture normal and symmetrical Neuromuscular (Tone, Coordination, Reflexes) no noted functional deficits. Sensory Vision: Functional Hearing: Functional Hand Dominance: Right Sensation Right Lower Extremit: Intact Sensation Left Lower Extremity: Intact Transfers Functional [place] Measure 0=Not Assessed/NA 4=Minimal Assistance 1=Total Assistance 5=Supervision or Setup 2=Maximal Assistance 6=Modified [place] 3=Moderate Assistance 7=Complete IndependenceIRFPAI Quality Coding Scale 6 Independent with activity with or without an assistive device 5 Patient requires set up or clean up by helper. Patient completes activity by themselves 4 Supervision or touching assist (CGA). [place] provide cues , steadying assist 3 The helper provides less than half the effort to complete the activity 2 The helper provides more than half the effort to complete the activity 1 Dependent. The helper does all the effort to complete an activity 7 Patient refused to complete or attempt activity 9 The patient did not perform the activity before the current illness or injury 88 Not attempted due to Medical conditions or safety concerns Transfers (B, C, W/C) (FIM): 3 Sit to/from Stand: 3 (mod assist to stand up due to inability to use left UE to push up.) Sit to Stand (QC): 3 Chair/[id number] Xfer(QC): 4 pt's transfers are limited due to inability to use her left UE. Gait Does the Patient Walk?: Yes Mode of Locomotion: Walk Anticipated Mode of Locomotion: Walk Gait (FIM): 2 Distance (FIM): 6=108-51 ft Walk 10 feet (QC): 4 Walk 50 ft with 2 Turns(QC): 4 Distance: 75 ft Gait Assistive Device: Cane Small Base Quad Comments/Gait Description decreased step length and wid AIMEE due to balance instability with left UE in a sling. CGA for safety. Slow tasia. Wheelchair Training Does the Pt Use a Wheelchair?: No Balance Sitting Static: Good Sitting Dynamic: Good Standing Static: Fair Standing Dynamic: Fair Picking up an Object (QC): 88 (unsafe to attempt) Treatment Gait with single point cane x 50 ft with min assist; unsafe to use so changed to a quad cane. toileted with mod assist to transfer on/off the toilet. Pt able to perform pericare with CGA. Assessment/Needs pt presents post fall with hematoma to her head and humeral head displaced. She has impaired functional mobility due to her arm being in a sling and impairing her transfer ability and balance making discharge home unsafe at this time. She will benefit from skilled PT to address these deficits to allow her to progress to a level that she can manage at home by herself. Rehab Potential: Good PT Short Term Goals Short Term Goals Time Frame: Aug 26, 2017 Transfers (B,C,W/C) (FIM): 5 Gait (FIM): 5 Distance (FIM): 3=150 ft Gait Assistive Device: Cane Small Base Quad PT Halfway Goals Senior Contracts Manager Goals PT Halfway Goals Time Frame: Sep 04, 2017 Transfers (B,C,W/C) (FIM): 6 Sit to Lying (QC): 6 Lying-Sitting on Side/Bed(QC): 6 Sit to Stand (QC): 6 Roll Left to Right (QC): 6 Chair/[id number]-[id number] Xfer(QC): 6 Car Transfer (QC): 6 Does the Patient Walk: Yes Gait (FIM): 6 Gait distance (FIM): 3=150 ft Walk 10 feet (QC): 6 Walk 10ft-Uneven Surface(QC): 6 Walk 50ft with 2 Turns (QC): 6 Walk 150 ft (QC): 6 Gait Level of Assist: 6 Gait Assistive Device: Cane Small Base Quad Does the Pt use WC or Scooter?: No Stairs (FIM): 5 # of Steps: 4 1 Step (curb) (QC): 6 4 Steps (QC): 6 12 Steps (QC): 88 Picking up an Object (QC): 88 PT Plan Problem List Problem List: Activity Tolerance, Functional Strength, Safety, Balance, Gait, Transfer, Bed Mobility Treatment/Plan Treatment Plan: Continue Plan of Care Treatment Plan: Bed Mobility, Education, Functional Activity Cintia, Functional Strength, Group Therapy, Gait, Safety, Therapeutic Exercise, Transfers Treatment Duration: Sep 04, 2017 Frequency: At least 5 of 7 days/Wk (IRF) Estimated Hrs Per Day: 1.5 hours per day Patient and/or Family Agrees t: Yes Safety Risks/Education Patient Education: Transfer Techniques, Safety Issues Teaching Recipient: Patient Teaching Methods: Discussion Response to Teaching: Reinforcement Needed Discharge Recommendations Therapy D/C Recommendations: Physical Therapy Home Care Time/GCodes Time In: 1220 Time Out: 1250 Total Billed Treatment Time: 30 Total Billed Treatment visit EVM 15 FA 15 PAULINO RAMÍREZ PT Aug 19, 2017 13:12
[2017-08-19] MEDS ORDERED: PNEUMOCOCCAL VACCINE 25 MCG/0.5 ML VIAL IM ONE (14:00)
[2017-08-19] MEDS ORDERED: ONDANSETRON 8 MG (ZOFRAN) ORAL DISSOLVE TAB PO PRN (14:45)
--- NOTE | 2017-08-19 14:45 | ST Cognitive Linguistic Eval ---
Speech Evaluation-General Medical Diagnosis fall; closed head injury Onset Date: Aug 19, 2017 Therapy Diagnosis Therapy Diagnosis: Cognitive Linguistic Skills WNL Precautions Precautions/Isolations: Fall Prevention, Standard Precautions Referral Referring Physician: Dr. Derian Day Reason for Referral: Evaluation/Treatment Cognitive Evaluation Medical History Pertinent Medical History: Arthritis, GERD Current History The patient was recently leaving her hair salon and fell, receiving a displaced humerus fracture (left) and closed head injury (left eye and forehead). Reviewed History: Yes Social History Current Living Status: Alone Speech PLF-Current Status Prior Level of Function The patient denied prior challenges with speech, language or cognition prior to admission. Subjective The patient was seated upright in the recliner upon entrance. The patient greeted the clinician appropriately and was agreeable to participation in the cognitive treatment session. Language Eval: Auditory Comprehends Simple Yes/No Ques: Functional Indent/Objects Multiple [place]: Functional Ident/Pics in Multiple [place]: Functional Follows 1-Step Commands: Functional Follows Complex Directions: Functional Follows General Conversations: Functional Language Eval: Verbal Language Completes Spontaneous Greeting: Functional Produces Auto, Serial Info: Functional Imitates Simple Words/Phrases: Functional Word Finding: Functional Requests Basic Needs: Functional States Basic Personal Info: Functional Expresses Complex Ideas: Functional Cognitive Patient Orientation The patient was independently oriented to self, location, month, day of week, and month. Objective Cognitive Domain Attention: WNL Memory: WNL Problem Solving: Functional Objective Impression The patient demonstrated cognitive linguistic skills within normal limits and appropriate for completion of ADL's. Communication/Social Cognition Comprehension: 7 Expression: 7 Social Interaction: 7 Problem Solvin Memory: 7 Speech Patient Assess Expression of Ideas/Wants: Expression (4) Understanding Verbal Content: Understands (4) Brief Interview-Mental Status: Yes Repetition of Three Words: Three (3) Temporal Orientation: Year: Correct (3) Temporal Orientation: Month: Accurate within 5 days(2) Temporal Orientation: Day: Correct (1) Recall : Wear to say "Sock": Yes, no cue required (2) Recall : Color: Yes, no cue required (2) Recall : Bed: Yes, no cue required (2) Speech-Plan Treatment Plan Speech Therapy Treatment Plan: Discontinue ST Evaluation, only. Frequency: Modified Program (IRF) (Evaluation, only.) Estimated Hrs Per Day: Other (Evaluation, only.) Rehab Potential: Good Safety Risks/Education Teaching Recipient: Patient Teaching Methods: Discussion Response to Teaching: Verbalize Understanding Education Topics Provided: Results, Recommendations, Plan of Care Time Speech Therapy Time In: 14:20 Speech Therapy Time Out: 14:35 Total Billed Time: 15 Billed Treatment Time 1, LEONELA ROGER Aug 19, 2017 14:45
--- NOTE | 2017-08-19 15:11 | PM&R Post Admission Assessment ---
Post Admission Physician Asses Date seen by provider: Aug 19, 2017 Time seen by provider: 14:45 Admisison Dx: (1) Humerus head fracture The preadmission screen agrees with the post admission assessment that the patient is a good candidate for inpatient rehabilitation. The patient will have a comprehensive program of inpatient rehabilitation with a goal of maximizing level of functional independence prior to discharge home with [facility]. The patient will have PT/OT ninety minutes per day, each discipline , five days a week for gait, strengthening, conditioning, balance, ADLs, any patient/family/caregiver training as necessary. Speech therapy to do cognitive assessment and treat as indicated. Rehabilitation nursing to assist with bowel, bladder, skin, wound care, medication administration, pain management. Supervisor Opening And Picking to assist with discharge planning, community reentry. SCD's and coumadin for DVT prophylaxis. She appears to be well motivated to participate in three hours of therapy a day. She should be able to tolerate three hours of therapy a day from a medical standpoint. She should benefit from the three hours of therapy a day. She has a reasonable discharge plan, reasonable discharge rehabilitation goals and a supportive family. She has various comorbidities that need to be closely monitored with medications and treatments adjusted on a daily basis as needed. These include: Chronic anticoagulation with recent fall and periorbital hematoma Overactive bladder Barriers to discharge for this patient who had been independent prior to this are for her to be modified independent to supervision for ADLs and mobility skills prior to discharge home with [facility], so as to lessen the burden of the caregivers. Risks for this patient include: 1. Fall 2. Fracture 3. DVT 4. Pulmonary embolism 5. Wound infection 6. Skin breakdown 7. Contractures 8. Poorly controlled pain 9. Urinary retention 10. UTI 11. Respiratory infection 12. Aspiration 13. Poorly controlled INR 14. Concussion Estimated Length of Stay: 10 days Prognosis: Rehab prognosis appears good for goal of discharge home with [facility] modified independent to supervision for ADLs and mobility skills. General: Alert, Oriented X3, Cooperative, No Acute Distress HEENT: PERRLA, EOMI, Mucous Memb Moist/[place], Other (large left periorbital hematoma) Neck: Supple, No JVD Lungs: Clear to Auscultation Heart: Regular Rate Abdomen: Normal Bowel Sounds, Soft, No Tenderness Extremities: Other (Trace edema pretibial Left arm in sling) Neuro: Other (Strength 4+/5 BUES and RUE Left arm in sling with limited software licensing executive strength left and tenderness over left elbow) PAIGE JONES MD Aug 19, 2017 15:11
--- NOTE | 2017-08-19 15:25 | Physical Therapy Daily Note ---
PT Daily Note-Current Subjective Patient in recliner pre tx, agrees to PT. Will be co-treating with OT this afternoon. Appearance Patient in bed post tx with nurse call, phone, tray, all needs met. Mental Status Patient Orientation: Person, Place, Situation arm sling left side Transfers Functional [place] Measure 0=Not Assessed/NA 4=Minimal Assistance 1=Total Assistance 5=Supervision or Setup 2=Maximal Assistance 6=Modified [place] 3=Moderate Assistance 7=Complete IndependenceIRFPAI Quality Coding Scale 6 Independent with activity with or without an assistive device 5 Patient requires set up or clean up by helper. Patient completes activity by themselves 4 Supervision or touching assist (CGA). Bim provide cues , steadying assist 3 The helper provides less than half the effort to complete the activity 2 The helper provides more than half the effort to complete the activity 1 Dependent. The helper does all the effort to complete an activity 7 Patient refused to complete or attempt activity 9 The patient did not perform the activity before the current illness or injury 88 Not attempted due to Medical conditions or safety concerns Transfers (B, C, W/C) (FIM): 2 Scootin Rollin Supine to/from Sit: 2 Sit to/from Stand: 4 Bed to/from Chair: 4 Bed mobility max assist, sit to stand min assist, transfers CGA. Patient needs many cues for positioning for supine to sit. Weight Bearing Right Lower Extremity: Right Full Weight Bearing Full Weight Bearing Left UE in a sling; NWB. Gait Training Gait (FIM): 2 Distance: 120'x2 Gait Level of Assist: 4 Gait Persons Needed: 1 Gait Assistive Device: Cane Large Base Quad Patient ambulated 120'x2 with a large base quad cane with min assist, she is very unsteady and had several losses of balance, she tends to lose her balance when she gets distracted by what is going on around her Treatments bed mobility, transfers, ambulation, also patient was dressed and bathed Assessment Current Status: Fair Progress improved distance of ambulation, patient needs a lot of assist for bed mobility PT Short Term Goals Short Term Goals Time Frame: Aug 26, 2017 Transfers (B,C,W/C) (FIM): 5 Gait (FIM): 5 Distance (FIM): 3=150 ft Gait Assistive Device: Cane Small Base Quad PT Mcfp Goals Coordinator Hotels Goals PT Mcfp Goals Time Frame: Sep 04, 2017 Transfers (B,C,W/C) (FIM): 6 Sit to Lying (QC): 6 Lying-Sitting on Side/Bed(QC): 6 Sit to Stand (QC): 6 Roll Left to Right (QC): 6 Chair/Qxf-jk-Pstgk Xfer(QC): 6 Car Transfer (QC): 6 Does the Patient Walk: Yes Gait (FIM): 6 Gait distance (FIM): 3=150 ft Walk 10 feet (QC): 6 Walk 10ft-Uneven Surface(QC): 6 Walk 50ft with 2 Turns (QC): 6 Walk 150 ft (QC): 6 Gait Level of Assist: 6 Gait Assistive Device: Cane Small Base Quad Does the Pt use WC or Scooter?: No Stairs (FIM): 5 # of Steps: 4 1 Step (curb) (QC): 6 4 Steps (QC): 6 12 Steps (QC): 88 Picking up an Object (QC): 88 PT Plan Problem List Problem List: Activity Tolerance, Functional Strength, Safety, Balance, Gait, Transfer, Bed Mobility, ROM Treatment/Plan Treatment Plan: Continue Plan of Care Treatment Plan: Bed Mobility, Education, Functional Activity Cintia, Functional Strength, Group Therapy, Gait, Safety, Therapeutic Exercise, Transfers Treatment Duration: Sep 04, 2017 Frequency: At least 5 of 7 days/Wk (IRF) Estimated Hrs Per Day: 1.5 hours per day Patient and/or Family Agrees t: Yes Safety Risks/Education Patient Education: Gait Training, Transfer Techniques, Reviewed Precautions, Correct Positioning, Reviewed Don/Doff Brace, Safety Issues Teaching Recipient: Patient Teaching Methods: Demonstration, Discussion Response to Teaching: Reinforcement Needed Time/GCodes Time In: 1435 Time Out: 1515 Total Billed Treatment Time: 40 Total Billed Treatment 1 visit GA 15' FA 25' Co-treated with OT for the whole 40 min, PT worked on bed mobility, transfers, ambulation, and positioning during bathing. OT worked on bathing, dressing, and UE positioning during ambulation and transitions. GLORY STOKES PT Aug 19, 2017 15:25
--- NOTE | 2017-08-19 15:33 | Occupational Therapy Eval ---
OT Evaluation-General/PLF Medical Diagnosis Admission Date Aug 19, 2017 at 12:29 Medical Diagnosis: fall; closed head injury Onset Date: Aug 19, 2017 Therapy Diagnosis Therapy Diagnosis: Weakness Height/Weight Height (Feet): 5 Height (Inches): 0.00 Weight (Pounds): 228 Weight (Ounces): 8.0 Precautions Precautions/Isolations: Fall Prevention, Standard Precautions Weight Bear Status Weight Bearing Restriction: Non Weight Bearing Location Restriction: L UE Referral Physician: ronald Referral Reason: Activity Tolerance, Self Care, Evaluation/Treatment, Strengthening/ROM Medical History Pertinent Medical History: Arthritis, GERD Additional Medical History Bilateral knee replacements, vertigo Current History Pt. fell coming out of the [employer] shop. Fell on concrete. Fx left humeral head. Contusion on left elbow. Reviewed History: Yes Social History Home: Apartment ([place]) Current Living Status: Alone Entry Into Home: Level Entry Steps Into Home: 0 Pt. has niece that visits her frequently and can assist a lot. ADL-Prior Level of Function ADL PLOF Comments Pt. was independent with daily tasks. DME/Equipment Comments Pt. has a cane and walker but does not use either. Drive Self: Yes OT Current Status Subjective Pt. reports pain when her left arm is touched, but does not report pain level. Pt. has had pain medication. Appearance Pt. is in room. Agrees to work with therapy. Pt. has sling on left arm that is to be worn when up. Mental Status/Objective Patient Orientation: Person, Place Current Hand Dominance: Right Upper Extremity ROM WFL- right impaired-left ADL-Treatment Functional [place] Measure 0=Not Assessed/NA 4=Minimal Assistance 1=Total Assistance 5=Supervision or Setup 2=Maximal Assistance 6=Modified [place] 3=Moderate Assistance 7=Complete IndependenceIRFPAI Quality Coding Scale 6 Independent with activity with or without an assistive device 5 Patient requires set up or clean up by helper. Patient completes activity by themselves 4 Supervision or touching assist (CGA). [place] provide cues , steadying assist 3 The helper provides less than half the effort to complete the activity 2 The helper provides more than half the effort to complete the activity 1 Dependent. The helper does all the effort to complete an activity 7 Patient refused to complete or attempt activity 9 The patient did not perform the activity before the current illness or injury 88 Not attempted due to Medical conditions or safety concerns Eating (FIM): 5 Eating (QC): 5 Bathing (FIM): 2 (Pt. is able to wash face, upper chest, and somewhat wash under left arm with emphasis to bend forward and let gravity assist. OT bathes all other parts.) Shower/Bathe Self (QC): 2 Upper Body Dressing (FIM): 2 (Max assist to doff/don sling.) Upper Body Dressing (QC): 2 Lower Body Dressing (FIM): 1 (Dependent to doff/don slipper socks.) Lower Body Dressing (QC): 1 On/Off Footwear (QC): 1 Toileting (FIM): 3 Toileting Hygiene (QC): 3 Transfers (B, C, W/C) (FIM): 4 Toilet/Commode Transfer (FIM): 4 Toilet Transfer (QC): 4 Other Treatments Pt. is seen for evaluation and treatment in three increments. Completed education, ADLs, and co-treat to provide ample rest breaks and time for ADL completion. Pt. ambulated several times with OT from room to gym, and completed toileting and spongebath up in chair. Co-treatment completed due to pt's inability to balance and complete higher level ADLs at the same time. PT focused on LE strength, balance, and endurance while OT focuses on ADLs and ability to bathe/dress self. Pt. is encouraged to have family bring in clothing , as she has no street clothing available. Pt. is educated on rehab stay and DC goals. Verbalizes understanding. All needs met in room. Education OT Patient Education: Correct positioning, Modified ADL techniques, Progress toward Goal/Update tx plan, Purpose of tx/functional activities, Reviewed precautions, Rehab process, Transfer techniques Teaching Recipient: Patient Teaching Methods: Demonstration, Discussion Response to Teaching: Verbalize Understanding, Return Demonstration OT Short Term Goals Short Term Goals Time Frame: Aug 26, 2017 Eating(FIM): 6 Grooming(FIM): 5 Bathing(FIM): 4 Upper Body Dressing(FIM): 4 Lower Body Dressing(FIM): 4 Toileting(FIM): 4 Transfers (B,C,W/C) (FIM): 5 Toilet/Commode Transfer(FIM): 5 Shower Transfer(FIM): 4 Additional Short Term Goals: 1-Demonstrate ADL Tasks, 2-Verbalize Understanding , 3-ImproveStrength/Cintia 1=Demonstrate adherence to instructed precautions during ADL tasks. 2=Patient will verbalize/demonstrate understanding of assistive devices/ modifications for ADL. 3=Patient will improve strength/tolerance for activity to enable patient to perform ADL's. OT Computational Physicist Goals Computational Physicist Goals Time Frame: Sep 02, 2017 Eating (FIM): 6 Eating (QC): 6 Groomin Oral Hygiene (QC): 5 Bathing(FIM): 5 Shower/Bathe Self (QC): 5 Upper Body Dressing(FIM): 6 Upper Body Dressing (QC): 6 Lower Body Dressing(FIM): 6 Lower Body Dressing (QC): 6 On/Off Footwear (QC): 6 Toileting(FIM): 6 Toileting Hygiene (QC): 6 Transfers (B,C,W/C) (FIM): 6 Toilet/Commode Transfer(FIM): 6 Toilet/Commode Transfer (QC): 6 Shower Transfer(FIM): 5 Additional Goals: 1-Demonstrate ADL Tasks, 2-Verbalize Understanding, 3- ImproveStrength/Cintia 1=Demonstrate adherence to instructed precautions during ADL tasks. 2=Patient will verbalize/demonstrate understanding of assistive devices/ modifications for ADL. 3=Patient will improve strength/tolerance for activity to enable patient to perform ADL's. OT Education/Plan Problem List/Assessment Assessment: Decreased Activ Tolerance, Decreased UE Strength, Dependent Transfers, Impaired Bed Mobility, Impaired Funct Balance, Impaired I ADL's, Impaired Self-Care Skills, Restricted Funct UE ROM Discharge Recommendations Plan/Recommendations: Continue POC Therapy D/C Recommendations: Bath Aide, Home w/ Family Support, Occupational Therapy Home Care Equpiment Recommendations-D/C: Extended Bath Bench, Hip Kit Target Placement Home with family support. Treatment Plan/Plan of Care Treatment,Training & Education: Yes Patient would benefit from OT for education, treatment and training to promote independence in ADL's, mobility, safety and/or upper extremity function for ADL' s. Plan of Care: ADL Retraining, Functional Mobility Treatment Duration: Sep 02, 2017 Frequency: At least 5 of 7 days/Wk (IRF) Estimated Hrs Per Day: 1.5 hours per day Agreement: Yes Rehab Potential: Good Time/GCodes Start Time: 12:50 Stop Time: 15:15 Total Time Billed (hr/min): 60 Billed Treatment Time 3550-7469 1, EVM x 10minutes 7150-4123 1, FA x 10minutes 7627-3834 1, ADL x 40minutes CURT GILLESPIE OT Aug 19, 2017 15:33
--- NOTE | 2017-08-19 15:35 | HISTORY AND PHYSICAL ---
DATE OF SERVICE: 08/19/2017 CHIEF COMPLAINT: Difficulty with walking. HISTORY OF PRESENT ILLNESS: The patient is an 82-year-old female who lives in her own correction apartment near the hospital who was leaving her hairdressers when she fell. She sustained a minimally displaced fracture of the left humeral head and neck and placed in a sling. She also sustained a large left forehead hematoma. She is on Coumadin for a past history of recurrent DVTs and INR was 2.8. Subsequent CT of the head revealed no intracranial pathology, just a large left forehead and periorbital hematoma. The patient was assessed in the ED regarding this, but not felt safe to return home alone. She was admitted to [facility] for further observation and treatment. She has had a decline in her functional independence from this. She had been independent prior to this and she is referred to inpatient rehabilitation unit. She is right hand dominant. She complains of pain in her left elbow. She is nonweightbearing left upper limb, it is in a sling. She reports no incontinence of bowel and bladder. She is on hydrocodone for pain control. She is min to mod assist for transfers, min assist for ambulation with a small base quad cane, min assist for bed mobility. She is set up for eating and grooming, max assist for upper body dressing, mod assist for lower body dressing and bathing and toileting. PAST MEDICAL HISTORY: History of DVT, chronic anticoagulation, GERD, diverticulosis, anxiety, depression, arthritis. PAST SURGICAL HISTORY: Appendectomy. ALLERGIES: PENICILLIN. FAMILY HISTORY: Heart disease, hypertension, [place], respiratory disorder. SOCIAL HISTORY: Retired, lives in a correction apartment near the hospital, had been independent. REVIEW OF SYSTEMS: Ten-point review of systems significant for fall, dizziness now resolved, left elbow pain. MEDICATIONS: Vitamin D 200 units p.o. b.i.d., citalopram 20 mg p.o. daily, hydrocodone/APAP 5/325 one tablet p.o. q.4 hours p.r.n. pain, Zofran 8 mg p.o. q.6 hours p.r.n. nausea, Ditropan 10 mg sustained release p.o. daily, Coumadin 5 mg p.o. daily. PHYSICAL EXAMINATION: GENERAL: Significant for a pleasant, somewhat obese female, appearing her stated age, sitting up in chair, in no acute distress with sling for left arm. VITAL SIGNS: She is afebrile. Blood pressure 151/71, pulse 77, respirations 18, O2 sat 94% on room air. HEENT: Vision, speech, hearing grossly intact. No oral lesion is noted. She has a large periorbital hematoma and left forehead hematoma, improving. NECK: Supple without mass. HEART: Regular rhythm. CHEST: Clear. ABDOMEN: Soft, nontender, bowel sounds present. EXTREMITIES: Left arm in a sling with tenderness over the left elbow. The patient with guarding and difficulty moving left arm, trace bilateral pedal edema. MUSCULOSKELETAL: She has functional active range of motion of right upper limb and both lower limbs. NEUROLOGIC: Cognition grossly intact. Sensation grossly intact to touch. Strength grossly 4/5 both lower extremities, 4/5 right upper limb. 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 IMPRESSION: 1. General debilitation, status post fall with resulting large left forehead and periorbital hematoma due to chronic anticoagulation. 2. Minimally displaced fracture of the left humeral head and neck managed with sling. 3. Chronic anticoagulation due to history of deep venous thrombosis. 4. Depression, controlled with medication. 5. Overactive bladder, on Ditropan. PLAN: The patient will have a comprehensive program of inpatient rehabilitation with goal of maximizing level of functional independence prior to discharge home with home health care. The patient will have PT, OT 90 minutes per day each discipline, 5 days a week for 10 days. Please see post-admission physician evaluation, which is a separate document for details of plan of care. Speech therapy to do cognitive assessment and treat as indicated, rehabilitation nursing to assist with bowel, bladder, skin care, medication administration, pain management, social economist to assist with discharge planning, community reentry. Continue with sling. Check INR in a.m. Follow up with PCP, Dr. Acharya as per his schedule. The patient is nonweightbearing left upper limb. Continue current medications. ESTIMATED LENGTH OF STAY: 10 days. PROGNOSIS: Rehab prognosis appears good for goal of discharging home with home healthcare, hopefully modified independent to supervision for ADLs and mobility skills. Certainly, the sling may affect her ability to return to complete independence and may require a home health nurse licensed practical to assist her as needed or consider an assisted living facility. DIET: Regular. CODE STATUS: Full code. Job ID: [id number] DocumentID: [id number] Dictated Date: 08/19/2017 14:59:05 [place] Supervisor Date: 08/19/2017 15:35:00 Dictated By: PAIGE JONES MD MTDD
--- NOTE | 2017-08-19 16:02 | Therapy Group Daily Note ---
Therapy Daily Group Note Patient Education Topic Other List Below (Memory Strategies & ARU Description) Exercises LE Seated Exercise, UE Exercise Other/Notes Pt ambulated to PT/OT Group in Therapy Gym using FWW. Group consisted of Introductions (Name, Place Living & Riddles), Socialization, ARU Description, Memory Strategies, Visual Perception Activity and Critical Thinking Strategies as well as UE & LE Seated Exercise. Pt participated in both Exercises and vocally with personal memory strategies and answers to Visual Perception Activity. Pt returns to room to rest at end of Group with OT . Pt has all needs met at end of Group. Start Time: 13:00 Stop Time: 14:10 Total Billed Treatment Time: 70 Total Billed Treatment 1, GRP (70m) JORDEN ESPINOSA PTA Aug 19, 2017 16:02
[2017-08-19 17:25] VITALS: BP 148/67
[2017-08-19] MEDS ORDERED: warFARin 5 MG (COUMADIN) TAB PO SCH (18:00)
[2017-08-19] MEDS ORDERED: OXYBUTYNIN (DITROPAN) 5 MG TAB PO SCH (21:00)
[2017-08-20 05:55] VITALS: BP 113/71
[2017-08-20 06:30] LABS: INR 3.5 (0.8-1.4); PROTHROMBIN TIME PATIENT 35.2 SEC (12.2-14.7)
[2017-08-20] MEDS ORDERED: VITAMIN D3 400 UNITS (CHOLECALCIFEROL) TABLET PO SCH (07:00)
[2017-08-20] MEDS: warFARin 5 MG (COUMADIN) TAB PO SCH (07:25)
[2017-08-20] MEDS: OXYBUTYNIN (DITROPAN) 5 MG TAB PO SCH ×2 (07:30→20:34)
[2017-08-20] MEDS: VITAMIN D3 1,000 UNITS (CHOLECALCIFEROL) TABLET PO SCH (07:31)
[2017-08-20] MEDS: HYDROcodone/APAP 5 MG/325 MG (LORTAB) TAB PO PRN ×2 (08:18→22:03)
[2017-08-20] MEDS ORDERED: OXYBUTYNIN (DITROPAN) 5 MG TAB PO SCH (09:00)
--- NOTE | 2017-08-20 09:58 | Physical Therapy Daily Note ---
PT Daily Note-Current Subjective Agreeable to PT. "No pain, No gain!" Pain Numeric Pain Scale: 4 Location: Left Location Body Site: Shoulder Pain Description: Ache Comment: Just took pain meds Mental Status Patient Orientation: Person, Place, Time, Situation Transfers Functional [place] Measure 0=Not Assessed/NA 4=Minimal Assistance 1=Total Assistance 5=Supervision or Setup 2=Maximal Assistance 6=Modified [place] 3=Moderate Assistance 7=Complete IndependenceIRFPAI Quality Coding Scale 6 Independent with activity with or without an assistive device 5 Patient requires set up or clean up by helper. Patient completes activity by themselves 4 Supervision or touching assist (CGA). [place] provide cues , steadying assist 3 The helper provides less than half the effort to complete the activity 2 The helper provides more than half the effort to complete the activity 1 Dependent. The helper does all the effort to complete an activity 7 Patient refused to complete or attempt activity 9 The patient did not perform the activity before the current illness or injury 88 Not attempted due to Medical conditions or safety concerns Sit to/from Stand: 4 (skilleed cues for scooting forward and pushing up from arm of chair.) Car Transfer (QC): 3 Sit to stand x 5 reps as well as several other times during treatment. Pt used right UE to push up and needs min to CGA to rise. Toilet transfer with min assist as well. Weight Bearing Right Lower Extremity: Right Full Weight Bearing Full Weight Bearing Left UE in a sling; NWB. Gait Training Does the Patient Walk?: Yes Gait (FIM): 2 Distance (FIM): 5=333-13 ft Distance: 125 ft, 100 ft 50 ft Walk 10 feet (QC): 4 Walk 50 ft with 2 Turns(QC): 4 Walk 150 ft (QC): 88 Walking 10ft/uneven surface-QC: 3 Gait Assistive Device: Cane Small Base Quad Unsteady at times and slow gait. Stair Training Stairs (FIM): 1 (unsafe to attempt) Exercises Seated Therapy Exercises: Ankle pumps, Long arc quads, Hip flexion, Hip abd/add Seated Reps: 15 NuStep Minutes: 10 Assessment Current Status: Good Progress Transfers improved at treatment progressed. Pt very motivated. Reports her niece will stay with her when she discharges. PT Short Term Goals Short Term Goals Time Frame: Aug 26, 2017 Transfers (B,C,W/C) (FIM): 5 Gait (FIM): 5 Distance (FIM): 3=150 ft Gait Assistive Device: Cane Small Base Quad PT Intermediate Goals Intermediate Goals PT Geochemical Manager Goals Time Frame: Sep 04, 2017 Transfers (B,C,W/C) (FIM): 6 Sit to Lying (QC): 6 Lying-Sitting on Side/Bed(QC): 6 Sit to Stand (QC): 6 Rollin Roll Left to Right (QC): 6 Chair/Bim-cd-[place] Xfer(QC): 6 Car Transfer (QC): 6 Does the Patient Walk: Yes Gait (FIM): 6 Gait distance (FIM): 3=150 ft Walk 10 feet (QC): 6 Walk 10ft-Uneven Surface(QC): 6 Walk 50ft with 2 Turns (QC): 6 Walk 150 ft (QC): 6 Gait Level of Assist: 6 Gait Assistive Device: Cane Small Base Quad Does the Pt use WC or Scooter?: No Stairs (FIM): 5 # of Steps: 4 1 Step (curb) (QC): 6 4 Steps (QC): 6 12 Steps (QC): 88 Picking up an Object (QC): 88 PT Plan Problem List Problem List: Activity Tolerance, Functional Strength, Safety, Balance, Gait, Transfer Treatment/Plan Treatment Plan: Continue Plan of Care Treatment Plan: Bed Mobility, Education, Functional Activity Cintia, Functional Strength, Group Therapy, Gait, Safety, Therapeutic Exercise, Transfers Treatment Duration: Sep 04, 2017 Frequency: At least 5 of 7 days/Wk (IRF) Estimated Hrs Per Day: 1.5 hours per day Patient and/or Family Agrees t: Yes Safety Risks/Education Patient Education: Transfer Techniques Teaching Recipient: Patient Teaching Methods: Demonstration, Discussion Response to Teaching: Return Demonstration, Reinforcement Needed Time/GCodes Time In: 825 Time Out: 925 Total Billed Treatment Time: 60 Total Billed Treatment visit EX 25 GT 35 PAULINO RAMÍREZ PT Aug 20, 2017 09:58
--- NOTE | 2017-08-20 10:35 | PM & R (SOAP) Progress Note ---
Subjective This was a face to face visit with the patient. Date Seen by Provider: Aug 20, 2017 Time Seen by Provider: 08:10 Subjective/Events-last exam Patient was seen in her room this AM.Therapy notes reviewed INR supratherapeutic.However patient indicates that she takes her Coumadin in the AM and RN contacted me rethis and order changed to reflect her home regimen.Uncertain how this would affect her blood level..Patient Min to mod assist for transfers.Sling for left arm Left Elbow less tender to touch and patient reports pain somewhat improved. Objective Physician Exam Last Set of Vital Signs Vital Signs Date Time Temp Pulse Resp B/P (MAP) Pulse Ox O2 Delivery O2 Flow Rate FiO2 08/20/17 05:55 98.0 69 20 113/71 (85) 94 Room Air Capillary Refill : Less Than 3 Seconds I&O Intake and Output 08/20/17 00:00 Intake Total 500 ml Balance 500 ml Intake Oral 500 ml # Voids 2 Daily Weight Change No General: Alert, Oriented X3, Cooperative, No Acute Distress HEENT: PERRLA, EOMI, Mucous Memb Moist/[place], Other (large left periorbital hematoma) Neck: Supple, No JVD Lungs: Clear to Auscultation Heart: Regular Rate Abdomen: Normal Bowel Sounds, Soft, No Tenderness Extremities: Other (Trace edema pretibial Left arm in sling) Neuro: Other (Strength 4+/5 BUES and RUE Left arm in sling with limited countersinker strength left and tenderness over left elbow) Results Lab Data Laboratory Tests 08/20/17 06:10: Prothrombin Time 35.2H, INR Comment 3.5H Assessment/Plan Assessment and Plan CHI s/p fall improving Impacted fracture left humeral head Supratherapeutic INR 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
--- NOTE | 2017-08-20 14:15 | Physical Therapy Daily Note ---
PT Daily Note-Current Subjective Pt reports she feels tired this afternoon but notes, "this is what I'm here for. " Transfers Functional [place] Measure 0=Not Assessed/NA 4=Minimal Assistance 1=Total Assistance 5=Supervision or Setup 2=Maximal Assistance 6=Modified [place] 3=Moderate Assistance 7=Complete IndependenceIRFPAI Quality Coding Scale 6 Independent with activity with or without an assistive device 5 Patient requires set up or clean up by helper. Patient completes activity by themselves 4 Supervision or touching assist (CGA). [place] provide cues , steadying assist 3 The helper provides less than half the effort to complete the activity 2 The helper provides more than half the effort to complete the activity 1 Dependent. The helper does all the effort to complete an activity 7 Patient refused to complete or attempt activity 9 The patient did not perform the activity before the current illness or injury 88 Not attempted due to Medical conditions or safety concerns Weight Bearing Right Lower Extremity: Right Full Weight Bearing Full Weight Bearing Left UE in a sling; NWB. Treatments Treatment consisted of gait training several bouts which incorporated walking and sit to stand transfers. Pt ambulated 50 ft x 5 reps with QC with CGA. Decreased step length and wide AIMEE and appears slightly unsteady. Sit to stand with CGA. Pt on toilet post treatmeht with needs met. Assessment Current Status: Good Progress Transfers improving. Still unsteady with gait but progressing PT Short Term Goals Short Term Goals Time Frame: Aug 26, 2017 Transfers (B,C,W/C) (FIM): 5 Gait (FIM): 5 Distance (FIM): 3=150 ft Gait Assistive Device: Cane Small Base Quad PT Penitentiary Goals Job Tracer Goals PT Penitentiary Goals Time Frame: Sep 04, 2017 Transfers (B,C,W/C) (FIM): 6 Sit to Lying (QC): 6 Lying-Sitting on Side/Bed(QC): 6 Sit to Stand (QC): 6 Rollin Roll Left to Right (QC): 6 Chair/Ebm-yc-Ubyut Xfer(QC): 6 Car Transfer (QC): 6 Does the Patient Walk: Yes Gait (FIM): 6 Gait distance (FIM): 3=150 ft Walk 10 feet (QC): 6 Walk 10ft-Uneven Surface(QC): 6 Walk 50ft with 2 Turns (QC): 6 Walk 150 ft (QC): 6 Gait Level of Assist: 6 Gait Assistive Device: Cane Small Base Quad Does the Pt use WC or Scooter?: No Stairs (FIM): 5 # of Steps: 4 1 Step (curb) (QC): 6 4 Steps (QC): 6 12 Steps (QC): 88 Picking up an Object (QC): 88 PT Plan Problem List Problem List: Activity Tolerance, Functional Strength, Safety Treatment/Plan Treatment Plan: Continue Plan of Care Treatment Plan: Bed Mobility, Education, Functional Activity Cintia, Functional Strength, Group Therapy, Gait, Safety, Therapeutic Exercise, Transfers Treatment Duration: Sep 04, 2017 Frequency: At least 5 of 7 days/Wk (IRF) Estimated Hrs Per Day: 1.5 hours per day Patient and/or Family Agrees t: Yes Safety Risks/Education Patient Education: Safety Issues Teaching Recipient: Patient Teaching Methods: Discussion Response to Teaching: Verbalize Understanding Discharge Recommendations Therapy D/C Recommendations: Physical Therapy Home Care Time/GCodes Time In: 1330 Time Out: 1400 Total Billed Treatment Time: 30 Total Billed Treatment visit GT 30 PAULINO RAMÍREZ PT Aug 20, 2017 14:14
--- NOTE | 2017-08-20 14:40 | Occupational Ther Daily Note ---
OT Current Status-Daily Note Subjective Pt. reports discomfort when left UE is moved. Has had a pain pill. Appearance Pt. is up in chair. Agrees to shower. No street clothing available. Mental Status/Objective Patient Orientation: Person, Place Functional [place] Measure 0=Not Assessed/NA 4=Minimal Assistance 1=Total Assistance 5=Supervision or Setup 2=Maximal Assistance 6=Modified [place] 3=Moderate Assistance 7=Complete [place] Attachments: IV ADL-Treatment Functional [place] Measure 0=Not Assessed/NA 4=Minimal Assistance 1=Total Assistance 5=Supervision or Setup 2=Maximal Assistance 6=Modified [place] 3=Moderate Assistance 7=Complete IndependenceIRFPAI Quality Coding Scale 6 Independent with activity with or without an assistive device 5 Patient requires set up or clean up by helper. Patient completes activity by themselves 4 Supervision or touching assist (CGA). [place] provide cues , steadying assist 3 The helper provides less than half the effort to complete the activity 2 The helper provides more than half the effort to complete the activity 1 Dependent. The helper does all the effort to complete an activity 7 Patient refused to complete or attempt activity 9 The patient did not perform the activity before the current illness or injury 88 Not attempted due to Medical conditions or safety concerns Eating (FIM): 6 Eating (QC): 6 Bathing (FIM): 3 (Pt. is able to wash feet with LH sponge, but requires assist to wash between toes. Pt. also requires assist to wash rear darya area.) Shower/Bathe Self (QC): 3 Lower Body Dressing (FIM): 2 (Pt. is unable to reach her feet to doff/don slipper socks. OT brought in AE. Attempted with this. Attempted 2 different sock aides. Pt. has great difficulty due to only having one useable arm. Pt. also required max assist to thread pants over feet and don over left hip.) Lower Body Dressing (QC): 2 On/Off Footwear (QC): 2 Toileting (FIM): 2 (Pt. requires max assist to cleanse rear darya area. Pt. issued toilet tongs after this.) Toileting Hygiene (QC): 2 Transfers (B, C, W/C) (FIM): 4 (Min assist to transfer and ambulate using quad cane.) Toilet/Commode Transfer (FIM): 4 Toilet Transfer (QC): 4 Shower Transfer(FIM): 4 Other Treatment Pt. is issued AE and this is practiced. Pt. is also issued therapy sponge to continue with increased strengthening of left hand while in sling. Pt. unable to doff/don sling, and reports pain with any kind of movement. Ice packs and pillows provided after treatment to left UE. Pt. reports feeling more comfortable after treatment. Education OT Patient Education: Correct positioning, Modified ADL techniques, Progress toward Goal/Update tx plan, Purpose of tx/functional activities, Reviewed precautions, Rehab process, Transfer techniques Teaching Recipient: Patient Teaching Methods: Demonstration, Discussion Response to Teaching: Verbalize Understanding, Return Demonstration OT Short Term Goals Short Term Goals Time Frame: Aug 26, 2017 Eating(FIM): 6 Grooming(FIM): 5 Bathing(FIM): 4 Upper Body Dressing(FIM): 4 Lower Body Dressing(FIM): 4 Toileting(FIM): 4 Transfers (B,C,W/C) (FIM): 5 Toilet/Commode Transfer(FIM): 5 Shower Transfer(FIM): 4 Additional Short Term Goals: 1-Demonstrate ADL Tasks, 2-Verbalize Understanding , 3-ImproveStrength/Cintia 1=Demonstrate adherence to instructed precautions during ADL tasks. 2=Patient will verbalize/demonstrate understanding of assistive devices/ modifications for ADL. 3=Patient will improve strength/tolerance for activity to enable patient to perform ADL's. OT Intermediate Goals Jack Machine Operator Goals Time Frame: Sep 02, 2017 Eating (FIM): 6 Eating (QC): 6 Groomin Oral Hygiene (QC): 5 Bathing(FIM): 5 Shower/Bathe Self (QC): 5 Upper Body Dressing(FIM): 6 Upper Body Dressing (QC): 6 Lower Body Dressing(FIM): 6 Lower Body Dressing (QC): 6 On/Off Footwear (QC): 6 Toileting(FIM): 6 Toileting Hygiene (QC): 6 Transfers (B,C,W/C) (FIM): 6 Toilet/Commode Transfer(FIM): 6 Toilet/Commode Transfer (QC): 6 Shower Transfer(FIM): 5 Additional Goals: 1-Demonstrate ADL Tasks, 2-Verbalize Understanding, 3- ImproveStrength/Cintia 1=Demonstrate adherence to instructed precautions during ADL tasks. 2=Patient will verbalize/demonstrate understanding of assistive devices/ modifications for ADL. 3=Patient will improve strength/tolerance for activity to enable patient to perform ADL's. OT Education/Plan Problem List/Assessment Assessment: Decreased Activ Tolerance, Decreased UE Strength, Dependent Transfers, Impaired Bed Mobility, Impaired Funct Balance, Impaired I ADL's, Impaired Self-Care Skills, Restricted Funct UE ROM Discharge Recommendations Plan/Recommendations: Continue POC Therapy D/C Recommendations: Home w/ Family Support, Occupational Therapy Home Care Treatment Plan/Plan of Care Treatment,Training & Education: Yes Patient would benefit from OT for education, treatment and training to promote independence in ADL's, mobility, safety and/or upper extremity function for ADL' s. Plan of Care: ADL Retraining, Functional Mobility Treatment Duration: Sep 02, 2017 Frequency: At least 5 of 7 days/Wk (IRF) Estimated Hrs Per Day: 1.5 hours per day Agreement: Yes Rehab Potential: Good Time/GCodes Start Time: 10:30 Stop Time: 12:00 Total Time Billed (hr/min): 90 Billed Treatment Time 1, ADL x 6 CURT GILLESPIE OT Aug 20, 2017 14:40
[2017-08-20 18:49] VITALS: BP 146/62
[2017-08-21] MEDS: VITAMIN D3 1,000 UNITS (CHOLECALCIFEROL) TABLET PO SCH (05:45)
[2017-08-21 05:50] VITALS: BP 104/62
[2017-08-21 06:22] LABS: INR 2.7 (0.8-1.4); PROTHROMBIN TIME PATIENT 29.1 SEC (12.2-14.7)
[2017-08-21] MEDS: OXYBUTYNIN (DITROPAN) 5 MG TAB PO SCH ×2 (08:33→20:31)
[2017-08-21] MEDS: HYDROcodone/APAP 5 MG/325 MG (LORTAB) TAB PO PRN ×3 (08:35→18:31)
[2017-08-21] MEDS: warFARin 5 MG (COUMADIN) TAB PO SCH (08:35)
--- NOTE | 2017-08-21 09:16 | PM & R (SOAP) Progress Note ---
Subjective This was a face to face visit with the patient. Date Seen by Provider: Aug 21, 2017 Time Seen by Provider: 08:00 Subjective/Events-last exam Patient was seen in her room this AM Patient Min to mod assist for transfers Using ice on left shoulder INR noted in therapeutic range Review of Systems Musculoskeletal: shoulder pain Objective Physician Exam Last Set of Vital Signs Vital Signs Date Time Temp Pulse Resp B/P (MAP) Pulse Ox O2 Delivery O2 Flow Rate FiO2 08/21/17 05:50 98.5 64 20 104/62 (76) 95 Room Air Capillary Refill : Less Than 3 Seconds I&O Intake and Output 08/21/17 00:00 Intake Total 1340 ml Balance 1340 ml Intake Oral 1340 ml # Voids 4 # Bowel Movements 2 General: Alert, Oriented X3, Cooperative, No Acute Distress HEENT: PERRLA, EOMI, Mucous Memb Moist/[place], Other (large left periorbital hematoma) Neck: Supple, No JVD Lungs: Clear to Auscultation Heart: Regular Rate Abdomen: Normal Bowel Sounds, Soft, No Tenderness Extremities: Other (Trace edema pretibial Left arm in sling) Neuro: Other (Strength 4+/5 BUES and RUE Left arm in sling with limited curb setter helper strength left and tenderness over left elbow) Results Lab Data Laboratory Tests 08/20/17 06:10: Prothrombin Time 35.2H, INR Comment 3.5H 08/21/17 05:29: Prothrombin Time 29.1H, INR Comment 2.7H Assessment/Plan Assessment and Plan CHI s/p fall Impacted fracture left humeral head in sling Therapeutic INR Chronic anticoagulation due to HX of DVTS Depression controlled with med Overactive bladder on Ditropan Plan Continue PT/OT/Pain management F/U with DR Acharya prn PCP Monitor INR and adjust Coumadin dose as needed Team Conference next week (1) Humerus head fracture Co-Morbidities that are continuing to impact the rehab process: (include details ) PAIGE JONES MD Aug 21, 2017 09:16
--- NOTE | 2017-08-21 09:23 | Individualized Plan of Care ---
Individualized Plan of Care Rehab Nursing IPOC Order Admission Date Aug 19, 2017 at 12:29 Current Orders Orders Consult Physician (08/19/17 12:29) General/Regular (08/19/17 Lunch) Admission-Acute Rehab Unit (08/19/17 12:29) Admission Arrival Bed Request (08/19/17 12:29) Ambulate TID (08/19/17 12:58) Sequential Compression Device 08,20 (08/19/17 12:58) Dvt/Vte Risk - Notifiy Physici 08 (08/19/17 12:58) Pneumococcal Vaccine (Pnu-Imune 23 Vacci (08/19/17 14:00) Vital Signs: Routine (Order) 08,16,00 (08/19/17 14:33) Sequential Compression Device 08,20 (08/19/17 14:33) Racker Octave Board-Inpt Rehab Con (08/19/17 14:33) Rehab Nursing Orders-Ipoc (08/19/17 14:33) Physical Therapy Rehab Orders (08/19/17 14:33) Occupational Therapy Rehab Ord (08/19/17 14:33) Speech Therapy Rehab Orders (08/19/17 14:33) Intake & Output 06,14,22 (08/19/17 14:33) Weekly Weight (Lbs) WEEK (08/19/17 14:33) Warfarin Tablet (Coumadin Tablet) (08/19/17 18:00) Oxybutynin Tablet (Ditropan Tablet) (08/19/17 21:00) Ondansetron Oral Dissolve Tab (Zofran O (08/19/17 14:45) Hydrocodone/Apap 5/325 Tablet (Lortab 5 (08/19/17 14:45) Patient Visit (08/19/17 ) Speech Sound Lang Comp (08/19/17 ) Citalopram Tablet (Celexa Tablet) (08/20/17 09:00) Cholecalciferol Capsule/Tablet (Vitamin (08/20/17 07:00) Protime With Inr (08/20/17 06:00) Patient Visit (08/19/17 ) Pt Eval Moderate Complexity (08/19/17 ) Functional Activities, Ea 15 (08/19/17 ) Patient Visit (08/19/17 ) Oxybutynin Tablet (Ditropan Tablet) (08/20/17 09:00) Oxybutynin Tablet (Ditropan Tablet) (08/20/17 09:00) Warfarin Tablet (Coumadin Tablet) (08/20/17 09:00) Cholecalciferol Capsule/Tablet (Vitamin (08/20/17 07:11) Patient Visit (08/19/17 ) Gait Training, Ea 15 Min (08/19/17 ) Functional Activities, Ea 15 (08/19/17 ) Patient Visit (08/20/17 ) Exercise Therap, Ea 15 Min (08/20/17 ) Gait Training, Ea 15 Min (08/20/17 ) Patient Visit (08/20/17 ) Gait Training, Ea 15 Min (08/20/17 ) Protime With Inr (08/21/17 05:00) Rehab Nursing Orders: Ongoing Assess. of Cognitive Status, Ongoing Assess. of Function Status, Disease Management & Educaiton, DVT Prophylaxis, Fall Prevention, Fluid/Electrolyte/Nutrition Mgmt, Infection Prevention, Medication Management & Education, Management of Risks & Complications, Management of Skin Intergrity, Nutrition Management, Pain Management, Patient/Family Support Other Nursing Orders: Monitor for urinary retention and constipation pain management PT IPOC Problem List: Activity Tolerance, Functional Strength, Safety Treatment Plan: Continue Plan of Care Bed Mobility, Education, Functional Activity Cintia, Functional Strength, Group Therapy, Gait, Safety, Therapeutic Exercise, Transfers Treatment Duration: Sep 04, 2017 Frequency: At least 5 of 7 days/Wk (IRF) Estimated Hrs Per Day: 1.5 hours per day OT IPOC Problems: Decreased Activ Tolerance, Decreased UE Strength, Dependent Transfers , Impaired Bed Mobility, Impaired Funct Balance, Impaired I ADL's, Impaired Self -Care Skills, Restricted Funct UE ROM OT Treatment, Training and Edu: Yes Plan of Care: ADL Retraining, Functional Mobility Treatment Duration: Sep 02, 2017 Frequency: At least 5 of 7 days/Wk (IRF) Estimated Hrs Per Day: 1.[address] IPOC Speech Therapy Treatment Plan: Discontinue ST Treatment Duration: Aug 21, 2017 Frequency: Modified Program (IRF) (Evaluation, only.) Estimated Hrs Per Day: Other (Evaluation, only.) Racker Octave Board/Case Mgmt Racker Octave Board/Case Managemen: Discharge Planning, Patient/Family Counseling Dietitian/Med Surg Nurse Dietitian/Med Surg Nurse to monitor nutritional status and make changes and/or recommendations as needed and work with speech pathology on dietary upgrades as the occur. Physician IPOC Medical Issues being managed closely and that require the 24 hour availability of a physician:Pain management Chroic anticoagulation OAB Depression Medical Issues: Bowel/Bladder Function, DVT Prophylaxis, Falls Precautions, Infection Protection, Pain Management, Weight Bearing Precautions, Wound Care, Other (List) (as per above) Brief Synthesis of Preadmission Screen, Post-Admission Evaluation, and Therapy Evaluations: 82 yo female who fell and sustained a CHI with periorbital edema and an impacted left humeral head fracture managed with a sling Caaaaaaaaaaaaaaarslon PCP following patient for general medical management and Coumadin management as she has a hx of DVTS and is on Coumadin chronically.Other Comorbidities as per H&P Lives alone in residential apartment in [place] [facility] code 02.22 Etiologic DX CHI without LOC Medical Prognosis: Good Anticipated Length of Stay: 08-28-17 Maximize level of functional [place] prior to discharge to home with [facility] taking into consideration NWB status Left ARM/in sling Anticipated d/c Destination: Home with C vs RETIREMENT PAIGE JONES MD Aug 21, 2017 09:23
--- NOTE | 2017-08-21 10:07 | Physical Therapy Daily Note ---
PT Daily Note-Current Subjective Pt sitting in recliner upon arrival. Pt agrees to PT. Pain Numeric Pain Scale: 5-Moderate Pain Location: Left Location Body Site: Elbow Pain Description: Ache Mental Status Patient Orientation: Person, Place, Time, Situation Attachments: Other-See Comments (Sling for LUE) Transfers Functional [place] Measure 0=Not Assessed/NA 4=Minimal Assistance 1=Total Assistance 5=Supervision or Setup 2=Maximal Assistance 6=Modified [place] 3=Moderate Assistance 7=Complete IndependenceIRFPAI Quality Coding Scale 6 Independent with activity with or without an assistive device 5 Patient requires set up or clean up by helper. Patient completes activity by themselves 4 Supervision or touching assist (CGA). [place] provide cues , steadying assist 3 The helper provides less than half the effort to complete the activity 2 The helper provides more than half the effort to complete the activity 1 Dependent. The helper does all the effort to complete an activity 7 Patient refused to complete or attempt activity 9 The patient did not perform the activity before the current illness or injury 88 Not attempted due to Medical conditions or safety concerns Scootin Rollin Roll Left to Right (QC): 3 (3) Supine to/from Sit: 4 Sit to/from Stand: 4 Sit to Lying (QC): 4 Sit to Stand (QC): 4 Weight Bearing Right Lower Extremity: Right Full Weight Bearing Full Weight Bearing Left UE in a sling; NWB. Gait Training Does the Patient Walk?: Yes Distance (FIM): 3=150 ft Distance: 300' Walk 10 feet (QC): 4 Walk 50 ft with 2 Turns(QC): 4 Walk 150 ft (QC): 4 Gait Level of Assist: 4 Gait Persons Needed: 1 Gait Assistive Device: Cane Large Base Quad Pt has slow tasia. Pt also demonstrates hip drop on L side with WB & drifts slightly to R. Exercises Seated Therapy Exercises: Ankle pumps, Long arc quads, Hip flexion, Kicking activity Seated Reps: 20 NuStep Minutes: 10 NuStep Workload: 3 (Didn't use LUE.) Treatments Pt wants to discuss progress with BIOSTATISTICS MANAGER. Pt discusses medication change & wanting to keep Dr Acharya informed especially with Blood Thinner. Pt transfers from recliner at CGA-Min A using LBQC. Pt ambulates to restroom before returning to recliner to receive morning meds from Nurse. Pt transfers again from recliner using LBQC. Pt ambulates in hallway using [facility] at [facility] for safety. Pt uses NuStep for 10m at [facility] 3 (w/o using LUE). Pt completes Seated Ex in chair. Pt takes rest before returning to room. BIOSTATISTICS MANAGER assists pt with positioning in recliner to help prop LUE and ice packs at end of tx with all needs met, including call light on lap. Assessment Current Status: Good Progress Pt is very motivated, continuing to say "NO pain, no gain". Pt fatigues and needs rest breaks but quickly recovers. Pt reports pain in R arm but states it seems less than previous days. PT Short Term Goals Short Term Goals Time Frame: Aug 26, 2017 Transfers (B,C,W/C) (FIM): 5 Gait (FIM): 5 Distance (FIM): 3=150 ft Gait Assistive Device: Cane Small Base Quad PT Skilled Nursing Goals Merchandise Presentation Associate Goals PT Skilled Nursing Goals Time Frame: Sep 04, 2017 Transfers (B,C,W/C) (FIM): 6 Sit to Lying (QC): 6 Lying-Sitting on Side/Bed(QC): 6 Sit to Stand (QC): 6 Rollin Roll Left to Right (QC): 6 Chair/Arv-fk-Gyrzm Xfer(QC): 6 Car Transfer (QC): 6 Does the Patient Walk: Yes Gait (FIM): 6 Gait distance (FIM): 3=150 ft Walk 10 feet (QC): 6 Walk 10ft-Uneven Surface(QC): 6 Walk 50ft with 2 Turns (QC): 6 Walk 150 ft (QC): 6 Gait Level of Assist: 6 Gait Assistive Device: Cane Small Base Quad Does the Pt use WC or Scooter?: No Stairs (FIM): 5 # of Steps: 4 1 Step (curb) (QC): 6 4 Steps (QC): 6 12 Steps (QC): 88 Picking up an Object (QC): 88 PT Plan Problem List Problem List: Activity Tolerance, Functional Strength, Safety, Balance, Gait, Transfer Treatment/Plan Treatment Plan: Continue Plan of Care Treatment Plan: Bed Mobility, Education, Functional Activity Cintia, Functional Strength, Group Therapy, Gait, Safety, Therapeutic Exercise, Transfers Treatment Duration: Sep 04, 2017 Frequency: At least 5 of 7 days/Wk (IRF) Estimated Hrs Per Day: 1.5 hours per day Patient and/or Family Agrees t: Yes Safety Risks/Education Patient Education: Gait Training, Transfer Techniques, Correct Positioning, Safety Issues Teaching Recipient: Patient Teaching Methods: Discussion Response to Teaching: Verbalize Understanding Time/GCodes Time In: 800 Time Out: 930 Total Billed Treatment Time: 90 Total Billed Treatment 1, GT x2 (30m), EX x2 (30m) & FA x2 (30m) G Codes Necessary: JORDEN Vail BIOSTATISTICS MANAGER Aug 21, 2017 10:07
--- NOTE | 2017-08-21 11:16 | Occupational Ther Daily Note ---
OT Current Status-Daily Note Subjective Pt sleeping in recliner, woke to name. Pt agrees to therapy. No c/o pain at this time. Mental Status/Objective Patient Orientation: Person, Place, Time, Situation Functional [place] Measure 0=Not Assessed/NA 4=Minimal Assistance 1=Total Assistance 5=Supervision or Setup 2=Maximal Assistance 6=Modified [place] 3=Moderate Assistance 7=Complete [place] Attachments: IV ADL-Treatment Functional [place] Measure 0=Not Assessed/NA 4=Minimal Assistance 1=Total Assistance 5=Supervision or Setup 2=Maximal Assistance 6=Modified [place] 3=Moderate Assistance 7=Complete IndependenceIRFPAI Quality Coding Scale 6 Independent with activity with or without an assistive device 5 Patient requires set up or clean up by helper. Patient completes activity by themselves 4 Supervision or touching assist (CGA). [place] provide cues , steadying assist 3 The helper provides less than half the effort to complete the activity 2 The helper provides more than half the effort to complete the activity 1 Dependent. The helper does all the effort to complete an activity 7 Patient refused to complete or attempt activity 9 The patient did not perform the activity before the current illness or injury 88 Not attempted due to Medical conditions or safety concerns Grooming (FIM): 6 (Sitting at sink, pt able to complete grooming.) Oral Hygiene (QC): 6 Bathing (FIM): 4 (Using shower bench, grabbar, hand held shower and long handle sponge pt able to complete except for buttocks and R UE. CGA in standing.) Bathing Location: L Arm, L Upper Leg, R Upper Leg, L Lower Leg (including foot) , R Lower Leg (including foot), Chest, Abdomen, Perineal Area Shower/Bathe Self (QC): 4 Upper Body (FIM): 2 (Pt using hospital gown due to no street clothing. Pt requires assist to thread arms through and place over head.) Upper Body Dressing (QC): 2 Lower Body Dressing (FIM): 2 (Pt learning how to use infection prevention specialist, sock aide and dressing stick to complete lower body dressing. Pt is demonstrating understanding of use just will need practice to become proficient. Assist to hike over hips.) Lower Body Dressing (QC): 2 On/Off Footwear (QC): 2 Toileting (FIM): 3 (Pt hiked pants over hips with min A and was able to complete hygiene sitting. Continues to work on cleansing buttocks.) Toileting Hygiene (QC): 3 Toilet/Commode Transfer (FIM): 4 (CGA using cane and grabbars.) Toilet Transfer (QC): 4 Shower Transfer(FIM): 4 (Using cane, grabbar and shower bench.) Other Treatment Pt ambulated to bed and was able to go from sitting EOB to supine with CGA and min A to go from supine to EOB. APROM to elbow and wrist in supine with L shldr supported. Elbow flexion to 135, supination to neutral, pronation WFL, wrist flexion WFL, wrist extension 35. After therapy, pt lying in bed with call light/phone in reach. All needs met in room. Education OT Patient Education: Correct positioning, Exercise program, Modified ADL techniques Teaching Recipient: Patient Teaching Methods: Demonstration, Discussion Response to Teaching: Return Demonstration, Reinforcement Needed OT Short Term Goals Short Term Goals Time Frame: Aug 26, 2017 Eating(FIM): 6 Grooming(FIM): 5 Bathing(FIM): 4 Upper Body Dressing(FIM): 4 Lower Body Dressing(FIM): 4 Toileting(FIM): 4 Transfers (B,C,W/C) (FIM): 5 Toilet/Commode Transfer(FIM): 5 Shower Transfer(FIM): 4 Additional Short Term Goals: 1-Demonstrate ADL Tasks, 2-Verbalize Understanding , 3-ImproveStrength/Cintia 1=Demonstrate adherence to instructed precautions during ADL tasks. 2=Patient will verbalize/demonstrate understanding of assistive devices/ modifications for ADL. 3=Patient will improve strength/tolerance for activity to enable patient to perform ADL's. OT Fpc Goals Lock Installer Goals Time Frame: Sep 02, 2017 Eating (FIM): 6 Eating (QC): 6 Groomin Oral Hygiene (QC): 5 Bathing(FIM): 5 Shower/Bathe Self (QC): 5 Upper Body Dressing(FIM): 6 Upper Body Dressing (QC): 6 Lower Body Dressing(FIM): 6 Lower Body Dressing (QC): 6 On/Off Footwear (QC): 6 Toileting(FIM): 6 Toileting Hygiene (QC): 6 Transfers (B,C,W/C) (FIM): 6 Toilet/Commode Transfer(FIM): 6 Toilet/Commode Transfer (QC): 6 Shower Transfer(FIM): 5 Additional Goals: 1-Demonstrate ADL Tasks, 2-Verbalize Understanding, 3- ImproveStrength/Cintia 1=Demonstrate adherence to instructed precautions during ADL tasks. 2=Patient will verbalize/demonstrate understanding of assistive devices/ modifications for ADL. 3=Patient will improve strength/tolerance for activity to enable patient to perform ADL's. OT Education/Plan Discharge Recommendations Plan/Recommendations: Continue POC Treatment Plan/Plan of Care Patient would benefit from OT for education, treatment and training to promote independence in ADL's, mobility, safety and/or upper extremity function for ADL' s. Plan of Care: ADL Retraining, Functional Mobility Treatment Duration: Sep 02, 2017 Frequency: At least 5 of 7 days/Wk (IRF) Estimated Hrs Per Day: 1.5 hours per day Agreement: Yes Rehab Potential: Good Time/GCodes Start Time: 10:30 Stop Time: 12:00 Total Time Billed (hr/min): 90 Billed Treatment Time 1 visit-ADL 5 (75 min) EX 1 (15 min) PAULINO MEJIA Aug 21, 2017 11:16
--- NOTE | 2017-08-21 11:31 | Progress Note-Hospitalist ---
Subjective HPI/CC On Admission Date Seen by Provider: Aug 21, 2017 Time Seen by Provider: 11:10 Patient reports doing better today with improvement in balance. She denies left shoulder pain and reports decreasing left elbow pain. She voices no complaints. She's had no presyncope or syncope denying lightheadedness. Objective Exam Vital Signs Vital Signs Date Time Temp Pulse Resp B/P (MAP) Pulse Ox O2 Delivery O2 Flow Rate FiO2 08/21/17 05:50 98.5 64 20 104/62 (76) 95 Room Air Capillary Refill : Less Than 3 Seconds General Appearance: No Apparent Distress, Obese Respiratory: Chest Non Tender, Lungs Clear, Normal Breath Sounds, No Accessory Muscle Use, No Respiratory Distress Cardiovascular: Regular Rate, Rhythm, No Edema, No Gallop, No JVD, No Murmur, Normal Peripheral Pulses Extremity: Other (Trace bilateral pretibial edema. There are some pain over the proximal ulnar on range of motion minimal discomfort to) Results/Procedures Lab Patient resulted labs reviewed. Assessment/Plan Assessment and Plan Assess & Plan/Chief Complaint A/P 1. Impacted minimally displaced left humeral neck fracture with elbow contusion improving. 2. Debility improving. Continue PT and OT. 3. Coumadin management past history of DVTs and pulmonary embolism. INR was 3.5 yesterday Coumadin was held and her INR is down to 2.8. We'll resume 4 mg daily and continue daily INRs. Nursing staff instructed to DC IV. Clinical Quality Measures DVT/VTE Risk/Contraindication: Risk Factor Score Per Nursin RFS Level Per Nursing on Admit: 4+=Very High YADI BATES MD Aug 21, 2017 11:31
[2017-08-21] MEDS: warFARin 2 MG (COUMADIN) TAB PO SCH (11:35)
[2017-08-21] MEDS: MICONAZOLE 2% POWDER (DESENEX AF) 90 GM TOP SCH ×2 (12:01→20:31)
[2017-08-21 17:20] VITALS: BP 131/67
[2017-08-22] MEDS: HYDROcodone/APAP 5 MG/325 MG (LORTAB) TAB PO PRN ×2 (05:15→17:38)
[2017-08-22] MEDS: VITAMIN D3 1,000 UNITS (CHOLECALCIFEROL) TABLET PO SCH (05:15)
[2017-08-22 05:25] VITALS: BP 123/73
[2017-08-22 06:55] LABS: INR 2.6 (0.8-1.4); PROTHROMBIN TIME PATIENT 27.9 SEC (12.2-14.7)
[2017-08-22] MEDS: OXYBUTYNIN (DITROPAN) 5 MG TAB PO SCH ×2 (08:59→21:29)
[2017-08-22] MEDS: MICONAZOLE 2% POWDER (DESENEX AF) 90 GM TOP SCH ×2 (09:00→21:28)
--- NOTE | 2017-08-22 10:50 | Physical Therapy Daily Note ---
PT Daily Note-Current Subjective Pt. up in bedside chair and agrees to therapy. Mental Status Patient Orientation: Normal For Age Transfers Functional [place] Measure 0=Not Assessed/NA 4=Minimal Assistance 1=Total Assistance 5=Supervision or Setup 2=Maximal Assistance 6=Modified [place] 3=Moderate Assistance 7=Complete IndependenceIRFPAI Quality Coding Scale 6 Independent with activity with or without an assistive device 5 Patient requires set up or clean up by helper. Patient completes activity by themselves 4 Supervision or touching assist (CGA). [place] provide cues , steadying assist 3 The helper provides less than half the effort to complete the activity 2 The helper provides more than half the effort to complete the activity 1 Dependent. The helper does all the effort to complete an activity 7 Patient refused to complete or attempt activity 9 The patient did not perform the activity before the current illness or injury 88 Not attempted due to Medical conditions or safety concerns Transfers (B, C, W/C) (FIM): 4 Sit to/from Stand: 4 Weight Bearing Right Lower Extremity: Right Full Weight Bearing Full Weight Bearing Left UE in a sling; NWB. Gait Training Does the Patient Walk?: Yes Gait (FIM): 4 Distance (FIM): 3=150 ft Distance: x 150 ft, x 100 ft Gait Level of Assist: 4 Gait Persons Needed: 1 Gait Assistive Device: Cane Small Base Quad Treatments gait training Assessment Current Status: Good Progress Pt. is slow but overall steady with gait, utilizes a step to gait pattern leading with the L LE. Pt. fatigues with gait requiring seated rest period. Pt. returned to room post session, up in bedside chair with pillows and ice packs in place under L LE, call light in reach, and all needs met. PT Short Term Goals Short Term Goals Time Frame: Aug 26, 2017 Transfers (B,C,W/C) (FIM): 5 Gait (FIM): 5 Distance (FIM): 3=150 ft Gait Assistive Device: Cane Small Base Quad PT Lift Truck Mechanic Goals Fci Goals PT Fci Goals Time Frame: Sep 04, 2017 Transfers (B,C,W/C) (FIM): 6 Sit to Lying (QC): 6 Lying-Sitting on Side/Bed(QC): 6 Sit to Stand (QC): 6 Rollin Roll Left to Right (QC): 6 Chair/Xgt-xu-Hebja Xfer(QC): 6 Car Transfer (QC): 6 Does the Patient Walk: Yes Gait (FIM): 6 Gait distance (FIM): 3=150 ft Walk 10 feet (QC): 6 Walk 10ft-Uneven Surface(QC): 6 Walk 50ft with 2 Turns (QC): 6 Walk 150 ft (QC): 6 Gait Level of Assist: 6 Gait Assistive Device: Cane Small Base Quad Does the Pt use WC or Scooter?: No Stairs (FIM): 5 # of Steps: 4 1 Step (curb) (QC): 6 4 Steps (QC): 6 12 Steps (QC): 88 Picking up an Object (QC): 88 PT Plan Treatment/Plan Treatment Plan: Continue Plan of Care Treatment Plan: Bed Mobility, Education, Functional Activity Cintia, Functional Strength, Group Therapy, Gait, Safety, Therapeutic Exercise, Transfers Treatment Duration: Sep 04, 2017 Frequency: At least 5 of 7 days/Wk (IRF) Estimated Hrs Per Day: 1.5 hours per day Patient and/or Family Agrees t: Yes Time/GCodes Time In: 942 Time Out: 1005 Total Billed Treatment Time: 23 Total Billed Treatment 1, GT 23' RENA DAWN PT Aug 22, 2017 10:50
[2017-08-22 16:35] VITALS: BP 168/72
[2017-08-22] MEDS: warFARin 2 MG (COUMADIN) TAB PO SCH (17:36)
[2017-08-23 06:00] VITALS: BP 132/76
[2017-08-23] MEDS: VITAMIN D3 1,000 UNITS (CHOLECALCIFEROL) TABLET PO SCH (06:27)
[2017-08-23 07:05] LABS: INR 2.2 (0.8-1.4); PROTHROMBIN TIME PATIENT 24.9 SEC (12.2-14.7)
[2017-08-23] MEDS: OXYBUTYNIN (DITROPAN) 5 MG TAB PO SCH ×2 (08:24→21:15)
[2017-08-23] MEDS: MICONAZOLE 2% POWDER (DESENEX AF) 90 GM TOP SCH ×2 (08:25→21:15)
[2017-08-23] MEDS: HYDROcodone/APAP 5 MG/325 MG (LORTAB) TAB PO PRN ×3 (08:29→21:19)
[2017-08-23 16:36] VITALS: BP 122/61
[2017-08-23] MEDS: warFARin 2 MG (COUMADIN) TAB PO SCH (18:04)
[2017-08-24 05:48] LABS: INR 2.2 (0.8-1.4); PROTHROMBIN TIME PATIENT 24.7 SEC (12.2-14.7)
[2017-08-24 05:57] VITALS: BP 124/74
[2017-08-24] MEDS: VITAMIN D3 1,000 UNITS (CHOLECALCIFEROL) TABLET PO SCH (06:18)
[2017-08-24] MEDS: HYDROcodone/APAP 5 MG/325 MG (LORTAB) TAB PO PRN ×3 (06:22→20:01)
[2017-08-24] MEDS: OXYBUTYNIN (DITROPAN) 5 MG TAB PO SCH ×2 (07:46→20:01)
[2017-08-24] MEDS: MICONAZOLE 2% POWDER (DESENEX AF) 90 GM TOP SCH ×2 (07:47→20:02)
--- NOTE | 2017-08-24 09:58 | Physical Therapy Daily Note ---
PT Daily Note-Current Subjective Pt sitting in recliner upon arrival. Pt reported had just used restroom. Pt agrees to PT. Pain Numeric Pain Scale: 4 Location: Left Location Body Site: Elbow Pain Description: Ache Mental Status Patient Orientation: Person, Place, Time, Situation Attachments: Other-See Comments (L sling for UE) Transfers Functional [place] Measure 0=Not Assessed/NA 4=Minimal Assistance 1=Total Assistance 5=Supervision or Setup 2=Maximal Assistance 6=Modified [place] 3=Moderate Assistance 7=Complete IndependenceIRFPAI Quality Coding Scale 6 Independent with activity with or without an assistive device 5 Patient requires set up or clean up by helper. Patient completes activity by themselves 4 Supervision or touching assist ([facility]). [place] provide cues , steadying assist 3 The helper provides less than half the effort to complete the activity 2 The helper provides more than half the effort to complete the activity 1 Dependent. The helper does all the effort to complete an activity 7 Patient refused to complete or attempt activity 9 The patient did not perform the activity before the current illness or injury 88 Not attempted due to Medical conditions or safety concerns Scootin Sit to/from Stand: 4 Sit to Stand (QC): 4 Weight Bearing Right Lower Extremity: Right Full Weight Bearing Full Weight Bearing Left UE in a sling; NWB. Gait Training Does the Patient Walk?: Yes Distance (FIM): 3=150 ft Distance: 150' Walk 10 feet (QC): 4 Walk 50 ft with 2 Turns(QC): 4 Walk 150 ft (QC): 4 Gait Level of Assist: 4 Gait Persons Needed: 1 Gait Assistive Device: Cane Small Base Quad Pt is NWB on [facility] and uses SBQC for ambulation. Pt's ambulation is slow but steady. Wheelchair Training Does the Pt Use a Wheelchair?: No Exercises Supine Ex: Glut sets Supine Reps: 15 Seated Therapy Exercises: Ankle pumps, Long arc quads, Hip flexion, Kicking activity Seated Reps: 15 Standing: Hip Abduction, Hamstring curls, Heel/toe raises, Unilateral stance, Weight shifts Standing Reps: 15 NuStep Minutes: 10 NuStep Workload: 3 Treatments Pt transfers at [facility] for support but is able to rock herself forward to stand. Pt ambulates in hallway using SBQC at [facility] for safety. Pt uses NuStep for 10m at 3, Seated Ex in chair and Standing EX in //bars. Pt takes frequent rest breaks due to fatigue. Pt ambulates back to room. Pt returns to room to use restroom. Pt returns to recliner at end of tx with all needs met, including call light in hand, ice packs & pillows placed. Assessment Current Status: Good Progress Pt still fatigues quickly since she cannot use LUE for balance. Pt has improved with strengthening, independence & safety of tasks though. PT Short Term Goals Short Term Goals Time Frame: Aug 26, 2017 Transfers (B,C,W/C) (FIM): 5 Gait (FIM): 5 Distance (FIM): 3=150 ft Gait Assistive Device: Cane Small Base Quad PT Usp Goals Usp Goals PT Usp Goals Time Frame: Sep 04, 2017 Transfers (B,C,W/C) (FIM): 6 Sit to Lying (QC): 6 Lying-Sitting on Side/Bed(QC): 6 Sit to Stand (QC): 6 Rollin Roll Left to Right (QC): 6 Chair/Bph-oz-Xdrna Xfer(QC): 6 Car Transfer (QC): 6 Does the Patient Walk: Yes Gait (FIM): 6 Gait distance (FIM): 3=150 ft Walk 10 feet (QC): 6 Walk 10ft-Uneven Surface(QC): 6 Walk 50ft with 2 Turns (QC): 6 Walk 150 ft (QC): 6 Gait Level of Assist: 6 Gait Assistive Device: Cane Small Base Quad Does the Pt use WC or Scooter?: No Stairs (FIM): 5 # of Steps: 4 1 Step (curb) (QC): 6 4 Steps (QC): 6 12 Steps (QC): 88 Picking up an Object (QC): 88 PT Plan Problem List Problem List: Activity Tolerance, Functional Strength, Safety, Balance, Gait, Transfer Treatment/Plan Treatment Plan: Continue Plan of Care Treatment Plan: Bed Mobility, Education, Functional Activity Cintia, Functional Strength, Group Therapy, Gait, Safety, Therapeutic Exercise, Transfers Treatment Duration: Sep 04, 2017 Frequency: At least 5 of 7 days/Wk (IRF) Estimated Hrs Per Day: 1.5 hours per day Patient and/or Family Agrees t: Yes Safety Risks/Education Patient Education: Gait Training, Transfer Techniques, Correct Positioning, Safety Issues Teaching Recipient: Patient Teaching Methods: Discussion Response to Teaching: Verbalize Understanding Time/GCodes Time In: 815 Time Out: 945 Total Billed Treatment Time: 90 Total Billed Treatment 1, GT (15m), FA x2 (30m) & EX x3 (60m) G Codes Necessary: JORDEN Vail AUDIO/VIDEO TECHNICIAN Aug 24, 2017 09:58
--- NOTE | 2017-08-24 14:07 | PM & R (SOAP) Progress Note ---
Subjective This was a face to face visit with the patient. Date Seen by Provider: Aug 24, 2017 Time Seen by Provider: 13:15 Subjective/Events-last exam Patient was seen in her room this afternoon Patient sitting in chair with sling in place left arm Patient min assist for transfers Review of Systems Musculoskeletal: arm pain Objective Physician Exam Last Set of Vital Signs Vital Signs Date Time Temp Pulse Resp B/P (MAP) Pulse Ox O2 Delivery O2 Flow Rate FiO2 08/24/17 05:57 96.8 61 18 124/74 (91) 97 Room Air Capillary Refill : Less Than 3 Seconds I&O Intake and Output 08/24/17 00:00 Intake Total 1450 ml Balance 1450 ml Intake Oral 1450 ml # Voids 6 # Bowel Movements 1 General: Alert, Oriented X3, Cooperative, No Acute Distress HEENT: PERRLA, EOMI, Mucous Memb Moist/[place], Other (large left periorbital hematoma) Neck: Supple, No JVD Lungs: Clear to Auscultation Heart: Regular Rate Abdomen: Normal Bowel Sounds, Soft, No Tenderness Extremities: Other (Trace edema pretibial Left arm in sling) Neuro: Other (Strength 4+/5 BUES and RUE Left arm in sling with limited donor services technician strength left and tenderness over left elbow) Results Lab Data Laboratory Tests 08/22/17 06:20: Prothrombin Time 27.9H, INR Comment 2.6H 08/23/17 06:45: Prothrombin Time 24.9H, INR Comment 2.2H 08/24/17 05:15: Prothrombin Time 24.7H, INR Comment 2.2H Assessment/Plan Assessment and Plan CHI s/p fall Impacted fracture left humeral head in sling Chronic anticoagulation Depression controlled with meds 'OAB on ditropan Plan Continue PT/OT/Pain management Team Conference 08-26-17 (1) Humerus head fracture Co-Morbidities that are continuing to impact the rehab process: (include details ) PAIGE JONES MD Aug 24, 2017 14:07
--- NOTE | 2017-08-24 14:16 | Occupational Ther Daily Note ---
OT Current Status-Daily Note Subjective No pain reported. Appearance Pt. is up in chair. Agrees to shower. Mental Status/Objective Patient Orientation: Person, Place Functional [place] Measure 0=Not Assessed/NA 4=Minimal Assistance 1=Total Assistance 5=Supervision or Setup 2=Maximal Assistance 6=Modified [place] 3=Moderate Assistance 7=Complete [place] ADL-Treatment Functional [place] Measure 0=Not Assessed/NA 4=Minimal Assistance 1=Total Assistance 5=Supervision or Setup 2=Maximal Assistance 6=Modified [place] 3=Moderate Assistance 7=Complete IndependenceIRFPAI Quality Coding Scale 6 Independent with activity with or without an assistive device 5 Patient requires set up or clean up by helper. Patient completes activity by themselves 4 Supervision or touching assist (CGA). [place] provide cues , steadying assist 3 The helper provides less than half the effort to complete the activity 2 The helper provides more than half the effort to complete the activity 1 Dependent. The helper does all the effort to complete an activity 7 Patient refused to complete or attempt activity 9 The patient did not perform the activity before the current illness or injury 88 Not attempted due to Medical conditions or safety concerns Bathing (FIM): 3 (Pt. requires assist to bathe between her toes and her darya area. Pt. is able to bathe all other parts with LH sponge.) Shower/Bathe Self (QC): 3 Upper Body (FIM): 3 (At end of ADL session, pt. practiced donning large baggy t -shirt over gown. Required increased time and min assist overall. Pt. is unable to don her sling on her own. Attempted, but has great difficulty with this.) Upper Body Dressing (QC): 3 Lower Body Dressing (FIM): 3 (Pt. is able to doff underwear and socks with AE. However, requires mod assist to don underwear with equipment, and max assist to don socks.) Lower Body Dressing (QC): 3 On/Off Footwear (QC): 3 Toileting (FIM): 4 (CGA in stance to pull up underwear. Min assist to fully get underwear over hips.) Toileting Hygiene (QC): 4 Transfers (B, C, W/C) (FIM): 4 (Min assist to stand out of chair.) Toilet/Commode Transfer (FIM): 4 Toilet Transfer (QC): 4 Shower Transfer(FIM): 4 Other Treatment OT provides clothing for pt., as she has not street clothing other than underwear here. Pt. declines donning pants, as she is afraid that she wont be able to pull them down in time if she needs to toilet. Pt. does practice shirt and sling after shower. Reports having vertigo in shower, therefore, socks were donned for her. All needs met after pt. reported no dizziness, up in chair. Education OT Patient Education: Correct positioning, Modified ADL techniques, Progress toward Goal/Update tx plan, Purpose of tx/functional activities, Reviewed precautions, Rehab process, Transfer techniques, Use of adapted equipment Teaching Recipient: Patient Teaching Methods: Demonstration, Discussion Response to Teaching: Verbalize Understanding, Return Demonstration OT Short Term Goals Short Term Goals Time Frame: Aug 26, 2017 Eating(FIM): 6 Grooming(FIM): 5 Bathing(FIM): 4 Upper Body Dressing(FIM): 4 Lower Body Dressing(FIM): 4 Toileting(FIM): 4 Transfers (B,C,W/C) (FIM): 5 Toilet/Commode Transfer(FIM): 5 Shower Transfer(FIM): 4 Additional Short Term Goals: 1-Demonstrate ADL Tasks, 2-Verbalize Understanding , 3-ImproveStrength/Cintia 1=Demonstrate adherence to instructed precautions during ADL tasks. 2=Patient will verbalize/demonstrate understanding of assistive devices/ modifications for ADL. 3=Patient will improve strength/tolerance for activity to enable patient to perform ADL's. OT Residential Goals Residential Goals Time Frame: Sep 02, 2017 Eating (FIM): 6 Eating (QC): 6 Groomin Oral Hygiene (QC): 5 Bathing(FIM): 5 Shower/Bathe Self (QC): 5 Upper Body Dressing(FIM): 6 Upper Body Dressing (QC): 6 Lower Body Dressing(FIM): 6 Lower Body Dressing (QC): 6 On/Off Footwear (QC): 6 Toileting(FIM): 6 Toileting Hygiene (QC): 6 Transfers (B,C,W/C) (FIM): 6 Toilet/Commode Transfer(FIM): 6 Toilet/Commode Transfer (QC): 6 Shower Transfer(FIM): 5 Additional Goals: 1-Demonstrate ADL Tasks, 2-Verbalize Understanding, 3- ImproveStrength/Cintia 1=Demonstrate adherence to instructed precautions during ADL tasks. 2=Patient will verbalize/demonstrate understanding of assistive devices/ modifications for ADL. 3=Patient will improve strength/tolerance for activity to enable patient to perform ADL's. OT Education/Plan Problem List/Assessment Assessment: Decreased Activ Tolerance, Decreased UE Strength, Impaired Coordination, Impaired Funct Balance, Impaired I ADL's, Impaired Self-Care Skills, Restricted Funct UE ROM Discharge Recommendations Plan/Recommendations: Continue POC Therapy D/C Recommendations: Home w/ Family Support, Occupational Therapy Home Care Equpiment Recommendations-D/C: Hip Kit Target Placement Home if family is able to assist her. Treatment Plan/Plan of Care Treatment,Training & Education: Yes Patient would benefit from OT for education, treatment and training to promote independence in ADL's, mobility, safety and/or upper extremity function for ADL' s. Plan of Care: ADL Retraining, Functional Mobility Treatment Duration: Sep 02, 2017 Frequency: At least 5 of 7 days/Wk (IRF) Estimated Hrs Per Day: 1.5 hours per day Agreement: Yes Rehab Potential: Good Time/GCodes Start Time: 10:00 Stop Time: 11:00 Total Time Billed (hr/min): 60 Billed Treatment Time 1, ADL x 4 CURT GILLESPIE OT Aug 24, 2017 14:16
--- NOTE | 2017-08-24 14:27 | Occupational Ther Daily Note ---
OT Current Status-Daily Note Subjective No pain reported. Appearance Pt. up in chair. Agrees to work with OT. Mental Status/Objective Patient Orientation: Person, Place, Time Functional [place] Measure 0=Not Assessed/NA 4=Minimal Assistance 1=Total Assistance 5=Supervision or Setup 2=Maximal Assistance 6=Modified [place] 3=Moderate Assistance 7=Complete [place] ADL-Treatment Functional [place] Measure 0=Not Assessed/NA 4=Minimal Assistance 1=Total Assistance 5=Supervision or Setup 2=Maximal Assistance 6=Modified [place] 3=Moderate Assistance 7=Complete IndependenceIRFPAI Quality Coding Scale 6 Independent with activity with or without an assistive device 5 Patient requires set up or clean up by helper. Patient completes activity by themselves 4 Supervision or touching assist (CGA). [place] provide cues , steadying assist 3 The helper provides less than half the effort to complete the activity 2 The helper provides more than half the effort to complete the activity 1 Dependent. The helper does all the effort to complete an activity 7 Patient refused to complete or attempt activity 9 The patient did not perform the activity before the current illness or injury 88 Not attempted due to Medical conditions or safety concerns Toileting (FIM): 5 (SBA to pull down/up underwear over hips to toilet self.) Toileting Hygiene (QC): 4 Transfers (B, C, W/C) (FIM): 5 (SBA to ambulate with four point cane to therapy gym.) Toilet/Commode Transfer (FIM): 5 Toilet Transfer (QC): 4 Other Treatment Pt. ambulated to therapy gym. Completed armbike x 15 minutes to increase overall strength and independence with daily tasks. After armbike task, ambulated to room. All needs met with ice packs and pillows for positioning. Education OT Patient Education: Correct positioning, Exercise program, Modified ADL techniques, Progress toward Goal/Update tx plan, Purpose of tx/functional activities, Reviewed precautions, Rehab process, Transfer techniques Teaching Recipient: Patient Teaching Methods: Demonstration, Discussion Response to Teaching: Verbalize Understanding, Return Demonstration OT Short Term Goals Short Term Goals Time Frame: Aug 26, 2017 Eating(FIM): 6 Grooming(FIM): 5 Bathing(FIM): 4 Upper Body Dressing(FIM): 4 Lower Body Dressing(FIM): 4 Toileting(FIM): 4 Transfers (B,C,W/C) (FIM): 5 Toilet/Commode Transfer(FIM): 5 Shower Transfer(FIM): 4 Additional Short Term Goals: 1-Demonstrate ADL Tasks, 2-Verbalize Understanding , 3-ImproveStrength/Cintia 1=Demonstrate adherence to instructed precautions during ADL tasks. 2=Patient will verbalize/demonstrate understanding of assistive devices/ modifications for ADL. 3=Patient will improve strength/tolerance for activity to enable patient to perform ADL's. OT Fdc Goals Fdc Goals Time Frame: Sep 02, 2017 Eating (FIM): 6 Eating (QC): 6 Groomin Oral Hygiene (QC): 5 Bathing(FIM): 5 Shower/Bathe Self (QC): 5 Upper Body Dressing(FIM): 6 Upper Body Dressing (QC): 6 Lower Body Dressing(FIM): 6 Lower Body Dressing (QC): 6 On/Off Footwear (QC): 6 Toileting(FIM): 6 Toileting Hygiene (QC): 6 Transfers (B,C,W/C) (FIM): 6 Toilet/Commode Transfer(FIM): 6 Toilet/Commode Transfer (QC): 6 Shower Transfer(FIM): 5 Additional Goals: 1-Demonstrate ADL Tasks, 2-Verbalize Understanding, 3- ImproveStrength/Cintia 1=Demonstrate adherence to instructed precautions during ADL tasks. 2=Patient will verbalize/demonstrate understanding of assistive devices/ modifications for ADL. 3=Patient will improve strength/tolerance for activity to enable patient to perform ADL's. OT Education/Plan Problem List/Assessment Assessment: Decreased Activ Tolerance, Decreased UE Strength, Dependent Transfers, Impaired Bed Mobility, Impaired Funct Balance, Impaired I ADL's, Impaired Self-Care Skills, Restricted Funct UE ROM Discharge Recommendations Plan/Recommendations: Continue POC Therapy D/C Recommendations: Home w/ Family Support, Occupational Therapy Home Care Equpiment Recommendations-D/C: Bath Chair, Extended Shower Sprayer, Hip Kit Treatment Plan/Plan of Care Treatment,Training & Education: Yes Patient would benefit from OT for education, treatment and training to promote independence in ADL's, mobility, safety and/or upper extremity function for ADL' s. Plan of Care: ADL Retraining, Functional Mobility Treatment Duration: Sep 02, 2017 Frequency: At least 5 of 7 days/Wk (IRF) Estimated Hrs Per Day: 1.5 hours per day Agreement: Yes Rehab Potential: Good Time/GCodes Start Time: 13:35 Stop Time: 14:05 Total Time Billed (hr/min): 30 Billed Treatment Time 1, ADL x 15minutes, Ex x 15minutes CURT GILLESPIE OT Aug 24, 2017 14:27
[2017-08-24 16:18] VITALS: BP 131/64
[2017-08-24] MEDS: warFARin 2 MG (COUMADIN) TAB PO SCH (16:57)
[2017-08-25 06:00] VITALS: BP 137/72
[2017-08-25] MEDS: VITAMIN D3 1,000 UNITS (CHOLECALCIFEROL) TABLET PO SCH (06:58)
[2017-08-25] MEDS: HYDROcodone/APAP 5 MG/325 MG (LORTAB) TAB PO PRN (06:58)
[2017-08-25 07:19] LABS: INR 2.1 (0.8-1.4); PROTHROMBIN TIME PATIENT 23.3 SEC (12.2-14.7)
[2017-08-25] MEDS: OXYBUTYNIN (DITROPAN) 5 MG TAB PO SCH ×2 (08:09→20:41)
[2017-08-25] MEDS: MICONAZOLE 2% POWDER (DESENEX AF) 90 GM TOP SCH ×2 (08:10→20:43)
--- NOTE | 2017-08-25 08:19 | Occupational Ther Daily Note ---
OT Current Status-Daily Note Subjective Pt alert, sitting in recliner. Pt agrees to therapy. No c/o pain. Pt did stated that her L shldr popped a few times over the last two days and she wanted to make sure everything was okay, "I don't want to go backwards". Reported to physician and nrsg. Mental Status/Objective Patient Orientation: Person, Place, Time, Situation Functional [place] Measure 0=Not Assessed/NA 4=Minimal Assistance 1=Total Assistance 5=Supervision or Setup 2=Maximal Assistance 6=Modified [place] 3=Moderate Assistance 7=Complete [place] ADL-Treatment Functional [place] Measure 0=Not Assessed/NA 4=Minimal Assistance 1=Total Assistance 5=Supervision or Setup 2=Maximal Assistance 6=Modified [place] 3=Moderate Assistance 7=Complete IndependenceIRFPAI Quality Coding Scale 6 Independent with activity with or without an assistive device 5 Patient requires set up or clean up by helper. Patient completes activity by themselves 4 Supervision or touching assist (CGA). [place] provide cues , steadying assist 3 The helper provides less than half the effort to complete the activity 2 The helper provides more than half the effort to complete the activity 1 Dependent. The helper does all the effort to complete an activity 7 Patient refused to complete or attempt activity 9 The patient did not perform the activity before the current illness or injury 88 Not attempted due to Medical conditions or safety concerns Eating (FIM): 5 (Assist needed to open milk container. Pt able to open cereal package and use regular utensils to feed self.) Eating (QC): 5 Grooming (FIM): 5 (SBA standing at sink, pt able to complete by self.) Oral Hygiene (QC): 4 Bathing (FIM): 4 (Using grabbar, shower bench and hand held shower pt is able to complete 80% sitting, CGA in standing to cleanse darya area and assist to cleanse buttocks. ) Bathing Location: L Arm, L Upper Leg, R Upper Leg, L Lower Leg (including foot) , R Lower Leg (including foot), Chest, Abdomen, Perineal Area Shower/Bathe Self (QC): 3 Upper Body (FIM): 3 (Assist to thread L UE into shirt sleeve then pt able to complete rest of sequence.) Upper Body Dressing (QC): 3 Lower Body Dressing (FIM): 4 (Using AE to don/doff over feet. Assist using sock aide, assist to hike over L hip.) Lower Body Dressing (QC): 3 On/Off Footwear (QC): 3 Shower Transfer(FIM): 4 (CGA using cane, grabbar and shower bench.) OT Short Term Goals Short Term Goals Time Frame: Aug 26, 2017 Eating(FIM): 6 Grooming(FIM): 5 Bathing(FIM): 4 Upper Body Dressing(FIM): 4 Lower Body Dressing(FIM): 4 Toileting(FIM): 4 Transfers (B,C,W/C) (FIM): 5 Toilet/Commode Transfer(FIM): 5 Shower Transfer(FIM): 4 Additional Short Term Goals: 1-Demonstrate ADL Tasks, 2-Verbalize Understanding , 3-ImproveStrength/Cintia 1=Demonstrate adherence to instructed precautions during ADL tasks. 2=Patient will verbalize/demonstrate understanding of assistive devices/ modifications for ADL. 3=Patient will improve strength/tolerance for activity to enable patient to perform ADL's. OT Professional Security Officer Goals Intermediate Goals Time Frame: Sep 02, 2017 Eating (FIM): 6 Eating (QC): 6 Groomin Oral Hygiene (QC): 5 Bathing(FIM): 5 Shower/Bathe Self (QC): 5 Upper Body Dressing(FIM): 6 Upper Body Dressing (QC): 6 Lower Body Dressing(FIM): 6 Lower Body Dressing (QC): 6 On/Off Footwear (QC): 6 Toileting(FIM): 6 Toileting Hygiene (QC): 6 Transfers (B,C,W/C) (FIM): 6 Toilet/Commode Transfer(FIM): 6 Toilet/Commode Transfer (QC): 6 Shower Transfer(FIM): 5 Additional Goals: 1-Demonstrate ADL Tasks, 2-Verbalize Understanding, 3- ImproveStrength/Cintia 1=Demonstrate adherence to instructed precautions during ADL tasks. 2=Patient will verbalize/demonstrate understanding of assistive devices/ modifications for ADL. 3=Patient will improve strength/tolerance for activity to enable patient to perform ADL's. OT Education/Plan Discharge Recommendations Plan/Recommendations: Continue POC Treatment Plan/Plan of Care Patient would benefit from OT for education, treatment and training to promote independence in ADL's, mobility, safety and/or upper extremity function for ADL' s. Plan of Care: ADL Retraining, Functional Mobility Treatment Duration: Sep 02, 2017 Frequency: At least 5 of 7 days/Wk (IRF) Estimated Hrs Per Day: 1.5 hours per day Agreement: Yes Rehab Potential: Good Time/GCodes Start Time: 06:50 Stop Time: 08:20 Total Time Billed (hr/min): 90 Billed Treatment Time 1 visit-ADL 6 (90 min) PAULINO MEJIA Aug 25, 2017 08:19
--- NOTE | 2017-08-25 08:46 | PM & R (SOAP) Progress Note ---
Subjective This was a face to face visit with the patient. Date Seen by Provider: Aug 25, 2017 Time Seen by Provider: 07:55 Subjective/Events-last exam Patient was seen in her room this AM Patient concerned as she heard her shoulder pop twice yesterday during therapies Requesting f/u XRAY Discussed with OT and RN Patient examined No deformitty noted with minimal tenbderness over left shoulder kept in sling .Patient with fair assistant operator strength left. Objective Physician Exam Last Set of Vital Signs Vital Signs Date Time Temp Pulse Resp B/P (MAP) Pulse Ox O2 Delivery O2 Flow Rate FiO2 08/25/17 06:00 97.5 64 18 137/72 (93) 95 Room Air Capillary Refill : Less Than 3 Seconds I&O Intake and Output 08/25/17 00:00 Intake Total 1110 ml Balance 1110 ml Intake Oral 1110 ml # Voids 5 General: Alert, Oriented X3, Cooperative, No Acute Distress HEENT: PERRLA, EOMI, Mucous Memb Moist/[place], Other (large left periorbital hematoma) Neck: Supple, No JVD Lungs: Clear to Auscultation Heart: Regular Rate Abdomen: Normal Bowel Sounds, Soft, No Tenderness Extremities: Other (Trace edema pretibial Left arm in sling) Neuro: Other (Strength 4+/5 BUES and RUE Left arm in sling with limited assistant operator strength left and tenderness over left elbow) Results Lab Data Laboratory Tests 08/23/17 06:45: Prothrombin Time 24.9H, INR Comment 2.2H 08/24/17 05:15: Prothrombin Time 24.7H, INR Comment 2.2H 08/25/17 06:29: Prothrombin Time 23.3H, INR Comment 2.1H Assessment/Plan Assessment and Plan CHI s/p fall Impacted left humeral head fracture Chronic anticoagulation Depression controlled with meds OAB on ditropan Plan Continue PT/OT Team Conference tomorrow Recheck Xray left shoulder see orders (1) Humerus head fracture Co-Morbidities that are continuing to impact the rehab process: (include details ) PAIGE JONES MD Aug 25, 2017 08:46
--- NOTE | 2017-08-25 09:55 | Physical Therapy Daily Note ---
PT Daily Note-Current Subjective Pt. agrees to Rx. Requests to use bathroom x 2 during Rx. States she hopes to have PT HC at [place]. No c/o pain this Rx Pain Numeric Pain Scale: 0-No Pain Mental Status Patient Orientation: Normal For Age Attachments: Other-See Comments (sling LUE) Transfers Functional [place] Measure 0=Not Assessed/NA 4=Minimal Assistance 1=Total Assistance 5=Supervision or Setup 2=Maximal Assistance 6=Modified [place] 3=Moderate Assistance 7=Complete IndependenceIRFPAI Quality Coding Scale 6 Independent with activity with or without an assistive device 5 Patient requires set up or clean up by helper. Patient completes activity by themselves 4 Supervision or touching assist (CGA). [place] provide cues , steadying assist 3 The helper provides less than half the effort to complete the activity 2 The helper provides more than half the effort to complete the activity 1 Dependent. The helper does all the effort to complete an activity 7 Patient refused to complete or attempt activity 9 The patient did not perform the activity before the current illness or injury 88 Not attempted due to Medical conditions or safety concerns Transfers (B, C, W/C) (FIM): 5 Scootin Rollin Supine to/from Sit: 5 Sit to/from Stand: 5 Bed to/from Chair: 5 Weight Bearing Right Lower Extremity: Right Full Weight Bearing Full Weight Bearing Left UE in a sling; NWB. Gait Training Does the Patient Walk?: Yes Gait (FIM): 5 Distance (FIM): 3=150 ft Gait Level of Assist: 5 Gait Persons Needed: 1 Gait Assistive Device: Cane Small Base Quad small shuffled steps, upon stance needs time to find balance before proceeding Stair Training Stair Training: Handrails/: 1 handrail Stairs (FIM): 2 #of Steps: 2 Stairs: Pattern: Step to Level of Assist: 4 Exercises Supine Ex: Bridging, Ankle pumps, Quad Set, Rolling, Glut sets, Heel Slides, Short Arc Quads, Scooting, Straight leg raise, Hip abd/add Supine Reps: 20 Seated Therapy Exercises: Ankle pumps, Sit to stand, Long arc quads, Hip flexion Seated Reps: 12 NuStep Minutes: 15 NuStep Workload: 5 Treatments toileted SBA Assessment Current Status: Good Progress PT Short Term Goals Short Term Goals Time Frame: Aug 26, 2017 Transfers (B,C,W/C) (FIM): 5 Gait (FIM): 5 Distance (FIM): 3=150 ft Gait Assistive Device: Cane Small Base Quad PT Assisted Goals Cell Liner Goals PT Assisted Goals Time Frame: Sep 04, 2017 Transfers (B,C,W/C) (FIM): 6 Sit to Lying (QC): 6 Lying-Sitting on Side/Bed(QC): 6 Sit to Stand (QC): 6 Rollin Roll Left to Right (QC): 6 Chair/Uyx-qi-Jobns Xfer(QC): 6 Car Transfer (QC): 6 Does the Patient Walk: Yes Gait (FIM): 6 Gait distance (FIM): 3=150 ft Walk 10 feet (QC): 6 Walk 10ft-Uneven Surface(QC): 6 Walk 50ft with 2 Turns (QC): 6 Walk 150 ft (QC): 6 Gait Level of Assist: 6 Gait Assistive Device: Cane Small Base Quad Does the Pt use WC or Scooter?: No Stairs (FIM): 5 # of Steps: 4 1 Step (curb) (QC): 6 4 Steps (QC): 6 12 Steps (QC): 88 Picking up an Object (QC): 88 PT Plan Treatment/Plan Treatment Plan: Continue Plan of Care Treatment Plan: Bed Mobility, Education, Functional Activity Cintia, Functional Strength, Group Therapy, Gait, Safety, Therapeutic Exercise, Transfers Treatment Duration: Sep 04, 2017 Frequency: At least 5 of 7 days/Wk (IRF) Estimated Hrs Per Day: 1.5 hours per day Patient and/or Family Agrees t: Yes Safety Risks/Education Patient Education: Gait Training, Transfer Techniques, Steps, Correct Positioning, Disease Process, Safety Issues Teaching Recipient: Patient Teaching Methods: Demonstration, Discussion Response to Teaching: Verbalize Understanding, Return Demonstration, Reinforcement Needed Time/GCodes Time In: 830 Time Out: 1000 Total Billed Treatment Time: 90 Total Billed Treatment 1,GT25m,EX35m,FA15m G Codes Necessary: ZION Tomlinson CUSTOMS DIRECTOR Aug 25, 2017 09:55
--- NOTE | 2017-08-25 11:03 | Progress Note-Hospitalist ---
Subjective HPI/CC On Admission Date Seen by Provider: Aug 25, 2017 Time Seen by Provider: 10:15 Patient reports doing better today with improvement in balance. She felt and heard some popping in the left shoulder with her sling off with some gentle range of motion in the shower. She became concerned about repeat fracture but denied any associated pain. Dr. Day was notified and repeat x-ray is pending. She has an ice bag on the shoulder but is not reporting any pain currently. She denies lightheadedness getting up. She reports is been 2 days since her last bowel movement. She's been averaging a half a hydrocodone twice a day with no other pain medication at this time available to her. She denies any problems with headaches or neck pain. Objective Exam Vital Signs Vital Signs Date Time Temp Pulse Resp B/P (MAP) Pulse Ox O2 Delivery O2 Flow Rate FiO2 08/25/17 06:00 97.5 64 18 137/72 (93) 95 Room Air Capillary Refill : Less Than 3 Seconds General Appearance: No Apparent Distress, Obese Neck: Full Range of Motion, Normal Inspection Respiratory: Chest Non Tender, Lungs Clear, Normal Breath Sounds, No Accessory Muscle Use, No Respiratory Distress Cardiovascular: Regular Rate, Rhythm, No Edema, No Gallop, No JVD, Normal Peripheral Pulses, Other (2/6 systolic ejection murmur heard at the second right intercostal space best no evidence for pulsus parvus or tardus. No S3 or S4.) Gastrointestinal: Normal Bowel Sounds, No Organomegaly, No Pulsatile Mass, Non Tender, Soft Extremity: Normal Capillary Refill, Normal Inspection, Normal Range of Motion, No Calf Tenderness, No Pedal Edema, Other (No bruising around the left shoulder no pain to palpation no swelling there is purpura and evolution in the lower upper arm and forearm now with some greens and yellows no evidence for hematoma formation is noted. There is a small abrasion on her left elbow she reports had been bleeding is a Band-Aid on now with no evidence for blood on the Band- Aid. Coal Washer strength is 4-5+ and symmetrical) Results/Procedures Lab Patient resulted labs reviewed. Assessment/Plan Assessment and Plan Assess & Plan/Chief Complaint A/P 1. Impacted minimally displaced left humeral neck fracture with elbow contusion improving. Patient reassured discussed the fact that she would continue to feel popping at times about the left shoulder but as long as it was not associated with pain or trauma it was not due to recurrent or unstable fracture. 2. Debility improving. Continue PT and OT. 3. Coumadin management past history of DVTs and pulmonary embolism. INR 2.2 yesterday 2.1 today We'll continue 4 mg daily and continue daily INRs. 4. Constipation will start scheduled low-dose Tylenol with continued when necessary hydrocodone in addition to stool softeners twice a day. Clinical Quality Measures DVT/VTE Risk/Contraindication: Risk Factor Score Per Nursin RFS Level Per Nursing on Admit: 4+=Very High YADI BATES MD Aug 25, 2017 11:03
[2017-08-25] MEDS ORDERED: DOCUSATE SODIUM 100 MG (COLACE) CAP PO NR (11:26)
--- NOTE | 2017-08-25 12:32 | Diagnostic Imaging Report ---
INDICATION: One week post fall, bruising, limited range of motion. TECHNIQUE: Two views of the left humerus were performed. CORRELATION STUDY: 08/17/2017. FINDINGS: There is again an abnormal appearance about the humeral head, compatible with a slightly multipart comminuted and impacted humeral head and neck fracture. While somewhat limited in assessment, there does appear to be slightly more impaction compared to the prior study. The remainder of the humerus is otherwise intact. IMPRESSION: The comminuted impacted left humeral head and neck fracture appears slightly more impacted from the prior study. Consideration might be given to dedicated shoulder views for further assessment, if clinically warranted. Dictated by: Dictated on workstation # [id number]
[2017-08-25] MEDS: ACETAMINOPHEN 500 MG TAB (TYLENOL) PO SCH ×2 (14:14→21:27)
[2017-08-25 17:17] VITALS: BP 109/67
[2017-08-25] MEDS: warFARin 2 MG (COUMADIN) TAB PO SCH (17:17)
[2017-08-25] MEDS: DOCUSATE SODIUM 100 MG (COLACE) CAP PO SCH (20:41)
[2017-08-26 05:34] VITALS: BP 120/75
[2017-08-26 06:24] LABS: INR 2.2 (0.8-1.4); PROTHROMBIN TIME PATIENT 24.2 SEC (12.2-14.7)
[2017-08-26] MEDS: ACETAMINOPHEN 500 MG TAB (TYLENOL) PO SCH ×3 (06:26→22:00)
[2017-08-26] MEDS: VITAMIN D3 1,000 UNITS (CHOLECALCIFEROL) TABLET PO SCH (06:26)
[2017-08-26] MEDS: OXYBUTYNIN (DITROPAN) 5 MG TAB PO SCH ×2 (08:24→20:41)
[2017-08-26] MEDS: MICONAZOLE 2% POWDER (DESENEX AF) 90 GM TOP SCH ×2 (08:24→20:40)
[2017-08-26] MEDS: DOCUSATE SODIUM 100 MG (COLACE) CAP PO SCH ×3 (08:24→21:00)
--- NOTE | 2017-08-26 09:00 | Occupational Ther Daily Note ---
OT Current Status-Daily Note Subjective Pt alert, sitting in recliner. Pt agrees therapy. No c/o pain at this time. Mental Status/Objective Patient Orientation: Person, Place, Time, Situation Functional [place] Measure 0=Not Assessed/NA 4=Minimal Assistance 1=Total Assistance 5=Supervision or Setup 2=Maximal Assistance 6=Modified [place] 3=Moderate Assistance 7=Complete [place] ADL-Treatment Declined shower at this time. Pt did want to freshen up in front of sink. Sitting at sink, pt completed grooming by self. CGA to transfer onto toilet using cane and grabbars. Pt able to complete hygiene after voiding with CGA for safety. Functional [place] Measure 0=Not Assessed/NA 4=Minimal Assistance 1=Total Assistance 5=Supervision or Setup 2=Maximal Assistance 6=Modified [place] 3=Moderate Assistance 7=Complete IndependenceIRFPAI Quality Coding Scale 6 Independent with activity with or without an assistive device 5 Patient requires set up or clean up by helper. Patient completes activity by themselves 4 Supervision or touching assist (CGA). [place] provide cues , steadying assist 3 The helper provides less than half the effort to complete the activity 2 The helper provides more than half the effort to complete the activity 1 Dependent. The helper does all the effort to complete an activity 7 Patient refused to complete or attempt activity 9 The patient did not perform the activity before the current illness or injury 88 Not attempted due to Medical conditions or safety concerns Grooming (FIM): 6 Oral Hygiene (QC): 6 Toileting (FIM): 4 Toileting Hygiene (QC): 4 Toilet/Commode Transfer (FIM): 4 Toilet Transfer (QC): 4 Other Treatment Pt completed resistive fine motor exercises with R/L hand to increase strength and dexterity for daily functional tasks. Pt given handout for R UE strengthening with/without wt. Pt completed 8 exercises with 2# wt 2 sets 5 reps for UE strengthening. Pt ambulated back to room and transferred into bed with SBA. With L shldr supported, APROM completed on L elbow. Elbow extension approx 150 degrees. WNL elbow pronation, slightly passed neutral for supination. Pt anticipate pain and limits movement, slight shldr compensation with elbow extension. Pt educated about compensation and what to look for. With pt's L shldr supported in bed, sling is off and elbow is partially extended to increase AROM. After therapy, pt lying in bed with call light/ phone in reach. All needs met in room. Education OT Patient Education: Correct positioning, Exercise program, Home exercise program Teaching Recipient: Patient Teaching Methods: Demonstration, Handout, Discussion Response to Teaching: Verbalize Understanding, Return Demonstration, Reinforcement Needed OT Short Term Goals Short Term Goals Time Frame: Aug 26, 2017 Eating(FIM): 6 Grooming(FIM): 5 Bathing(FIM): 4 Upper Body Dressing(FIM): 4 Lower Body Dressing(FIM): 4 Toileting(FIM): 4 Transfers (B,C,W/C) (FIM): 5 Toilet/Commode Transfer(FIM): 5 Shower Transfer(FIM): 4 Additional Short Term Goals: 1-Demonstrate ADL Tasks, 2-Verbalize Understanding , 3-ImproveStrength/Cintia 1=Demonstrate adherence to instructed precautions during ADL tasks. 2=Patient will verbalize/demonstrate understanding of assistive devices/ modifications for ADL. 3=Patient will improve strength/tolerance for activity to enable patient to perform ADL's. OT Group Home Goals Group Home Goals Time Frame: Sep 02, 2017 Eating (FIM): 6 Eating (QC): 6 Groomin Oral Hygiene (QC): 5 Bathing(FIM): 5 Shower/Bathe Self (QC): 5 Upper Body Dressing(FIM): 6 Upper Body Dressing (QC): 6 Lower Body Dressing(FIM): 6 Lower Body Dressing (QC): 6 On/Off Footwear (QC): 6 Toileting(FIM): 6 Toileting Hygiene (QC): 6 Transfers (B,C,W/C) (FIM): 6 Toilet/Commode Transfer(FIM): 6 Toilet/Commode Transfer (QC): 6 Shower Transfer(FIM): 5 Additional Goals: 1-Demonstrate ADL Tasks, 2-Verbalize Understanding, 3- ImproveStrength/Cintia 1=Demonstrate adherence to instructed precautions during ADL tasks. 2=Patient will verbalize/demonstrate understanding of assistive devices/ modifications for ADL. 3=Patient will improve strength/tolerance for activity to enable patient to perform ADL's. OT Education/Plan Discharge Recommendations Plan/Recommendations: Continue POC Treatment Plan/Plan of Care Patient would benefit from OT for education, treatment and training to promote independence in ADL's, mobility, safety and/or upper extremity function for ADL' s. Plan of Care: ADL Retraining, Functional Mobility Treatment Duration: Sep 02, 2017 Frequency: At least 5 of 7 days/Wk (IRF) Estimated Hrs Per Day: 1.5 hours per day Agreement: Yes Rehab Potential: Good Time/GCodes Start Time: 07:00 Stop Time: 08:30 Total Time Billed (hr/min): 90 Billed Treatment Time 1 visit-ADL 3 (45 min) EX 3 (45 min) PAULINO MEJIA Aug 26, 2017 09:00
--- NOTE | 2017-08-26 11:23 | Physical Therapy Daily Note ---
PT Daily Note-Current Subjective Pt. agrees to Rx. States she feels much better today and sees progress but feels she would like another week in rehab. Pain Numeric Pain Scale: 2 Location: Left Location Body Site: Shoulder Pain Description: Ache Mental Status Patient Orientation: Normal For Age Attachments: Other-See Comments (sling LUE) Transfers Functional [place] Measure 0=Not Assessed/NA 4=Minimal Assistance 1=Total Assistance 5=Supervision or Setup 2=Maximal Assistance 6=Modified [place] 3=Moderate Assistance 7=Complete IndependenceIRFPAI Quality Coding Scale 6 Independent with activity with or without an assistive device 5 Patient requires set up or clean up by helper. Patient completes activity by themselves 4 Supervision or touching assist (CGA). [place] provide cues , steadying assist 3 The helper provides less than half the effort to complete the activity 2 The helper provides more than half the effort to complete the activity 1 Dependent. The helper does all the effort to complete an activity 7 Patient refused to complete or attempt activity 9 The patient did not perform the activity before the current illness or injury 88 Not attempted due to Medical conditions or safety concerns Transfers (B, C, W/C) (FIM): 6 Scootin Rollin Supine to/from Sit: 6 Sit to/from Stand: 6 car TRF SBA to CGA Weight Bearing Right Lower Extremity: Right Full Weight Bearing Full Weight Bearing Left UE in a sling; NWB. Gait Training Does the Patient Walk?: Yes Gait (FIM): 5 Distance (FIM): 3=150 ft (150,100,50) Gait Level of Assist: 5 Gait Persons Needed: 1 Gait Assistive Device: Cane Small Base Quad hort shuffled steps, very slow and careful Stair Training Stair Training: Handrails/: 1 handrail Stairs (FIM): 2 #of Steps: 4 Stairs: Pattern: Step to Level of Assist: 3 skilled verbal instruction for sequence and approach, required mod assist at one point while descending Exercises Supine Ex: Bridging (x5), Ankle pumps, Quad Set, Rolling, Glut sets, Heel Slides, Short Arc Quads, Scooting, Straight leg raise, Hip abd/add Supine Reps: 20 Seated Therapy Exercises: Ankle pumps, Sit to stand, Long arc quads, Hip flexion, Hip abd/add Seated Reps: 15 NuStep Minutes: 15 NuStep Workload: 5 Treatments leg presses on Nustep x 20, Assessment Current Status: Good Progress pt. with Hx bilat TKRs, needs some assist descending steps this date as she has no steps at home and needed to reacquaint with the challenge of steps PT Short Term Goals Short Term Goals Time Frame: Aug 26, 2017 Transfers (B,C,W/C) (FIM): 5 Gait (FIM): 5 Distance (FIM): 3=150 ft Gait Assistive Device: Cane Small Base Quad PT [facility] Goals [facility] Goals PT [facility] Goals Time Frame: Sep 04, 2017 Transfers (B,C,W/C) (FIM): 6 Sit to Lying (QC): 6 Lying-Sitting on Side/Bed(QC): 6 Sit to Stand (QC): 6 Rollin Roll Left to Right (QC): 6 Chair/Yuw-bw-Dfzru Xfer(QC): 6 Car Transfer (QC): 6 Does the Patient Walk: Yes Gait (FIM): 6 Gait distance (FIM): 3=150 ft Walk 10 feet (QC): 6 Walk 10ft-Uneven Surface(QC): 6 Walk 50ft with 2 Turns (QC): 6 Walk 150 ft (QC): 6 Gait Level of Assist: 6 Gait Assistive Device: Cane Small Base Quad Does the Pt use WC or Scooter?: No Stairs (FIM): 5 # of Steps: 4 1 Step (curb) (QC): 6 4 Steps (QC): 6 12 Steps (QC): 88 Picking up an Object (QC): 88 PT Plan Treatment/Plan Treatment Plan: Continue Plan of Care Treatment Plan: Bed Mobility, Education, Functional Activity Cintia, Functional Strength, Group Therapy, Gait, Safety, Therapeutic Exercise, Transfers Treatment Duration: Sep 04, 2017 Frequency: At least 5 of 7 days/Wk (IRF) Estimated Hrs Per Day: 1.5 hours per day Patient and/or Family Agrees t: Yes Safety Risks/Education Patient Education: Gait Training, Transfer Techniques, Steps, Correct Positioning, Disease Process, Safety Issues Teaching Recipient: Patient Teaching Methods: Demonstration, Discussion Response to Teaching: Verbalize Understanding, Return Demonstration, Reinforcement Needed Time/GCodes Time In: 1000 Time Out: 1130 Total Billed Treatment Time: 90 Total Billed Treatment 1,EX40m,GT20m,FA30m G Codes Necessary: No LUEBBER, ZION A ROUGE PRESSER Aug 26, 2017 11:23
--- NOTE | 2017-08-26 14:50 | PM & R (SOAP) Progress Note ---
Subjective This was a face to face visit with the patient. Date Seen by Provider: Aug 26, 2017 Time Seen by Provider: 08:00 Subjective/Events-last exam Patient was seen in Gym this Am .Patient Modified Independent for transfers except to car CGA.Patient reports no further clicking or popping in left shoulder Xray results of Left humerus reviewed with patient-no significant change Review of Systems Musculoskeletal: shoulder pain Objective Physician Exam Last Set of Vital Signs Vital Signs Date Time Temp Pulse Resp B/P (MAP) Pulse Ox O2 Delivery O2 Flow Rate FiO2 08/26/17 05:34 98.0 63 20 120/75 (90) 98 Room Air Capillary Refill : Less Than 3 Seconds I&O Intake and Output 08/26/17 00:00 Intake Total 1330 ml Balance 1330 ml Intake Oral 1330 ml # Voids 6 # Bowel Movements 1 General: Alert, Oriented X3, Cooperative, No Acute Distress HEENT: PERRLA, EOMI, Mucous Memb Moist/[place], Other (large left periorbital hematoma) Neck: Supple, No JVD Lungs: Clear to Auscultation Heart: Regular Rate Abdomen: Normal Bowel Sounds, Soft, No Tenderness Extremities: Other (Trace edema pretibial Left arm in sling) Neuro: Other (Strength 4+/5 BUES and RUE Left arm in sling with limited web site specialist strength left and tenderness over left elbow) Results Lab Data Laboratory Tests 08/24/17 05:15: Prothrombin Time 24.7H, INR Comment 2.2H 08/25/17 06:29: Prothrombin Time 23.3H, INR Comment 2.1H 08/26/17 06:05: Prothrombin Time 24.2H, INR Comment 2.2H Assessment/Plan Assessment and Plan CHI s/p fall Impacted left humerus proximal fracture managed with sling Chronic anticoagulation Depression controlled with meds OAB on meds Plan Continue PT/OT/left arm sling Team Conference held earlier today-See report for full functional up[date and POC and DEYA KESSLER working out details with patient and her niece today (1) Humerus head fracture Co-Morbidities that are continuing to impact the rehab process: (include details ) PAIGE JONES MD Aug 26, 2017 14:50
[2017-08-26] MEDS: warFARin 2 MG (COUMADIN) TAB PO SCH (17:19)
[2017-08-26 17:27] VITALS: BP 109/61
[2017-08-26] MEDS ORDERED: LOPERAMIDE 2 MG (IMODIUM) CAP PO PRN (19:00)
[2017-08-27 06:00] VITALS: BP 136/78
[2017-08-27] MEDS: VITAMIN D3 1,000 UNITS (CHOLECALCIFEROL) TABLET PO SCH (06:40)
[2017-08-27] MEDS: ACETAMINOPHEN 500 MG TAB (TYLENOL) PO SCH ×3 (06:40→20:53)
[2017-08-27 06:50] LABS: INR 2.3 (0.8-1.4); PROTHROMBIN TIME PATIENT 25.8 SEC (12.2-14.7)
--- NOTE | 2017-08-27 07:14 | Occupational Ther Daily Note ---
OT Current Status-Daily Note Subjective Pt alert, sitting in recliner. No c/o pain. Agrees to therapy. Mental Status/Objective Patient Orientation: Person, Place, Time, Situation Functional [place] Measure 0=Not Assessed/NA 4=Minimal Assistance 1=Total Assistance 5=Supervision or Setup 2=Maximal Assistance 6=Modified [place] 3=Moderate Assistance 7=Complete [place] ADL-Treatment Functional [place] Measure 0=Not Assessed/NA 4=Minimal Assistance 1=Total Assistance 5=Supervision or Setup 2=Maximal Assistance 6=Modified [place] 3=Moderate Assistance 7=Complete IndependenceIRFPAI Quality Coding Scale 6 Independent with activity with or without an assistive device 5 Patient requires set up or clean up by helper. Patient completes activity by themselves 4 Supervision or touching assist (CGA). [place] provide cues , steadying assist 3 The helper provides less than half the effort to complete the activity 2 The helper provides more than half the effort to complete the activity 1 Dependent. The helper does all the effort to complete an activity 7 Patient refused to complete or attempt activity 9 The patient did not perform the activity before the current illness or injury 88 Not attempted due to Medical conditions or safety concerns Eating (FIM): 7 (Pt open packages/containers then uses regular utensils to eat. ) Eating (QC): 6 Grooming (FIM): 5 (Supervision standing at sink for safety.) Oral Hygiene (QC): 4 Bathing (FIM): 4 (Using long handle sponge, grabbar, hand held shower and shower bench pt able to wash all areas, CGA in standing when washing buttocks/ darya area.) Bathing Location: L Arm, R Arm, L Upper Leg, R Upper Leg, L Lower Leg ( including foot), R Lower Leg (including foot), Chest, Abdomen, Buttocks, Perineal Area Shower/Bathe Self (QC): 4 Upper Body (FIM): 4 (After setup, pt is initiating threading shirt over L UE then assist to position correctly. Pt completes rest of sequence by self.) Upper Body Dressing (QC): 3 Lower Body Dressing (FIM): 5 (Using AE pt is able to don/doff clothing. Close SBA in standing to hike pants over hips.) Lower Body Dressing (QC): 4 On/Off Footwear (QC): 4 Toileting (FIM): 5 (Close SBA in standing to hike pants over hips using cane, BSC and grabbars.) Toileting Hygiene (QC): 4 Toilet/Commode Transfer (FIM): 5 (Close SBA using cane, BSC and grabbars.) Toilet Transfer (QC): 4 Shower Transfer(FIM): 5 (Close SBA using cane, shower bench and grabbars.) Other Treatment Pt ambulated to bed and laid down using bedrail by self, min A sitting up. APROM to L elbow, forearm and wrist. Pt anticipates pain with elbow movement and compensates with shldr, education and light physical cues to relax shldr. Pt is demonstrating increase in AROM with all areas. After therapy, pt sitting in recliner with call light/phone in reach. All needs met in room. OT Short Term Goals Short Term Goals Time Frame: Aug 26, 2017 Eating(FIM): 6 Grooming(FIM): 5 Bathing(FIM): 4 Upper Body Dressing(FIM): 4 Lower Body Dressing(FIM): 4 Toileting(FIM): 4 Transfers (B,C,W/C) (FIM): 5 Toilet/Commode Transfer(FIM): 5 Shower Transfer(FIM): 4 Additional Short Term Goals: 1-Demonstrate ADL Tasks, 2-Verbalize Understanding , 3-ImproveStrength/Cintia 1=Demonstrate adherence to instructed precautions during ADL tasks. 2=Patient will verbalize/demonstrate understanding of assistive devices/ modifications for ADL. 3=Patient will improve strength/tolerance for activity to enable patient to perform ADL's. OT Health Psychologist Goals Detention Goals Time Frame: Sep 02, 2017 Eating (FIM): 6 Eating (QC): 6 Groomin Oral Hygiene (QC): 5 Bathing(FIM): 5 Shower/Bathe Self (QC): 5 Upper Body Dressing(FIM): 6 Upper Body Dressing (QC): 6 Lower Body Dressing(FIM): 6 Lower Body Dressing (QC): 6 On/Off Footwear (QC): 6 Toileting(FIM): 6 Toileting Hygiene (QC): 6 Transfers (B,C,W/C) (FIM): 6 Toilet/Commode Transfer(FIM): 6 Toilet/Commode Transfer (QC): 6 Shower Transfer(FIM): 5 Additional Goals: 1-Demonstrate ADL Tasks, 2-Verbalize Understanding, 3- ImproveStrength/Cintia 1=Demonstrate adherence to instructed precautions during ADL tasks. 2=Patient will verbalize/demonstrate understanding of assistive devices/ modifications for ADL. 3=Patient will improve strength/tolerance for activity to enable patient to perform ADL's. OT Education/Plan Discharge Recommendations Plan/Recommendations: Continue POC Treatment Plan/Plan of Care Patient would benefit from OT for education, treatment and training to promote independence in ADL's, mobility, safety and/or upper extremity function for ADL' s. Plan of Care: ADL Retraining, Functional Mobility Treatment Duration: Sep 02, 2017 Frequency: At least 5 of 7 days/Wk (IRF) Estimated Hrs Per Day: 1.5 hours per day Agreement: Yes Rehab Potential: Good Time/GCodes Start Time: 06:50 Stop Time: 08:20 Total Time Billed (hr/min): 90 Billed Treatment Time 1 visit-ADL 5 (70 min) EX 1 (20 min) PAULINO MEJIA Aug 27, 2017 07:14
[2017-08-27] MEDS: DOCUSATE SODIUM 100 MG (COLACE) CAP PO SCH ×2 (08:22→19:29)
[2017-08-27] MEDS: MICONAZOLE 2% POWDER (DESENEX AF) 90 GM TOP SCH ×2 (08:22→20:55)
[2017-08-27] MEDS: OXYBUTYNIN (DITROPAN) 5 MG TAB PO SCH ×2 (08:22→20:53)
--- NOTE | 2017-08-27 10:42 | Physical Therapy Daily Note ---
PT Daily Note-Current Subjective Pt sitting in recliner upon arrival. Pt agrees to PT and is motivated to get better for next week's discharge. Pain Numeric Pain Scale: 4 Location: Right Location Body Site: Shoulder Pain Description: Ache Mental Status Patient Orientation: Person, Place, Time, Situation Attachments: Other-See Comments (L arm sling) Transfers Functional [place] Measure 0=Not Assessed/NA 4=Minimal Assistance 1=Total Assistance 5=Supervision or Setup 2=Maximal Assistance 6=Modified [place] 3=Moderate Assistance 7=Complete IndependenceIRFPAI Quality Coding Scale 6 Independent with activity with or without an assistive device 5 Patient requires set up or clean up by helper. Patient completes activity by themselves 4 Supervision or touching assist (CGA). [place] provide cues , steadying assist 3 The helper provides less than half the effort to complete the activity 2 The helper provides more than half the effort to complete the activity 1 Dependent. The helper does all the effort to complete an activity 7 Patient refused to complete or attempt activity 9 The patient did not perform the activity before the current illness or injury 88 Not attempted due to Medical conditions or safety concerns Scootin Sit to/from Stand: 5 Sit to Stand (QC): 5 Weight Bearing Right Lower Extremity: Right Full Weight Bearing Full Weight Bearing Left UE in a sling; NWB. Gait Training Does the Patient Walk?: Yes Distance (FIM): 3=150 ft Distance: 200' Walk 10 feet (QC): 5 Walk 50 ft with 2 Turns(QC): 5 Walk 150 ft (QC): 5 Gait Level of Assist: 5 Gait Persons Needed: 1 Gait Assistive Device: Cane Small Base Quad Pt needs VC to WBAT on LLE to normalize gait. Pt has slow but steady tasia, no LOB. Wheelchair Training Does the Pt Use a Wheelchair?: No Stair Training Stair Training: Handrails/: 2 handrails #of Steps: 4 1 Step (curb) (QC): 4 4 Steps (QC): 4 Stairs: Pattern: Step to Level of Assist: 4 Exercises Supine Ex: Ankle pumps, Quad Set, Glut sets, Heel Slides, Hip abd/add Supine Reps: 15 Seated Therapy Exercises: Long arc quads, Hip flexion, Kicking activity Seated Reps: 15 NuStep Minutes: 15 NuStep Workload: 2 Treatments Pt transfers from recliner to standing at [facility] using SBQC. Pt uses restroom before leaving for tx. Pt ambulates in hallway using SBQC. Pt uses NuStep for 15m at WL2, then Seated Ex in chair. Pt ambulates to mat for Supine EX. Pt takes rest break before ambulating 1 set of 4 steps. Pt returns to room to rest in recliner at end of tx with all needs met, including call light & phone in hand, pillow under LUE. Nurse getting ice packs. Assessment Current Status: Good Progress Pt ambulation improves with VC to WB more through LLE to normalize gait. PT Short Term Goals Short Term Goals Time Frame: Aug 26, 2017 Transfers (B,C,W/C) (FIM): 5 Gait (FIM): 5 Distance (FIM): 3=150 ft Gait Assistive Device: Cane Small Base Quad PT [place] Goals [place] Goals PT [place] Goals Time Frame: Sep 04, 2017 Transfers (B,C,W/C) (FIM): 6 Sit to Lying (QC): 6 Lying-Sitting on Side/Bed(QC): 6 Sit to Stand (QC): 6 Rollin Roll Left to Right (QC): 6 Chair/Jhp-td-Nisyf Xfer(QC): 6 Car Transfer (QC): 6 Does the Patient Walk: Yes Gait (FIM): 6 Gait distance (FIM): 3=150 ft Walk 10 feet (QC): 6 Walk 10ft-Uneven Surface(QC): 6 Walk 50ft with 2 Turns (QC): 6 Walk 150 ft (QC): 6 Gait Level of Assist: 6 Gait Assistive Device: Cane Small Base Quad Does the Pt use WC or Scooter?: No Stairs (FIM): 5 # of Steps: 4 1 Step (curb) (QC): 6 4 Steps (QC): 6 12 Steps (QC): 88 Picking up an Object (QC): 88 PT Plan Problem List Problem List: Activity Tolerance, Safety, Balance, Gait Treatment/Plan Treatment Plan: Continue Plan of Care Treatment Plan: Bed Mobility, Education, Functional Activity Cintia, Functional Strength, Group Therapy, Gait, Safety, Therapeutic Exercise, Transfers Treatment Duration: Sep 04, 2017 Frequency: At least 5 of 7 days/Wk (IRF) Estimated Hrs Per Day: 1.5 hours per day Patient and/or Family Agrees t: Yes Safety Risks/Education Patient Education: Gait Training, Transfer Techniques, Correct Positioning, Safety Issues Teaching Recipient: Patient Teaching Methods: Discussion Response to Teaching: Verbalize Understanding Time/GCodes Time In: 900 Time Out: 1030 Total Billed Treatment Time: 90 Total Billed Treatment 1, GT x2 (25m), FA x2 (30m), EX x2 (35m) G Codes Necessary: JORDEN Vail BUMP GRADER OPERATOR Aug 27, 2017 10:42
--- NOTE | 2017-08-27 14:26 | PM & R (SOAP) Progress Note ---
Subjective This was a face to face visit with the patient. Date Seen by Provider: Aug 27, 2017 Time Seen by Provider: 08:00 Subjective/Events-last exam Patient was seen in her room this AM with OT Patient supervision for transfers from w/c to stand.Pain left shoulder decreasing and sales and catering coordinator strength left improving Objective Physician Exam Last Set of Vital Signs Vital Signs Date Time Temp Pulse Resp B/P (MAP) Pulse Ox O2 Delivery O2 Flow Rate FiO2 08/27/17 06:00 96.4 62 18 136/78 (97) 98 Room Air Capillary Refill : Less Than 3 Seconds I&O Intake and Output 08/27/17 00:00 Intake Total 1420 ml Balance 1420 ml Intake Oral 1420 ml # Voids 7 # Bowel Movements 2 General: Alert, Oriented X3, Cooperative, No Acute Distress HEENT: PERRLA, EOMI, Mucous Memb Moist/[place], Other (large left periorbital hematoma) Neck: Supple, No JVD Lungs: Clear to Auscultation Heart: Regular Rate Abdomen: Normal Bowel Sounds, Soft, No Tenderness Extremities: Other (Trace edema pretibial Left arm in sling) Neuro: Other (Strength 4+/5 BUES and RUE Left arm in sling with limited sales and catering coordinator strength left and tenderness over left elbow) Results Lab Data Laboratory Tests 08/25/17 06:29: Prothrombin Time 23.3H, INR Comment 2.1H 08/26/17 06:05: Prothrombin Time 24.2H, INR Comment 2.2H 08/27/17 06:33: Prothrombin Time 25.8H, INR Comment 2.3H Assessment/Plan Assessment and Plan CHI s/p fall resolved Impacted left humerus fracture proximal managed with sling Chronic anticolagulation Drepression controlled with meds OAB on meds Plan Continue PT/OT/pain management Dr Acharya managing Coumadin dosaging Discharge set tentatively for next week 09/02/17 back to Independent fpc apartment with [facility]- following up with patient and her family to confirm (1) Humerus head fracture Co-Morbidities that are continuing to impact the rehab process: (include details ) PAIGE JONES MD Aug 27, 2017 14:26
[2017-08-27 15:41] VITALS: BP 112/71
[2017-08-27] MEDS: warFARin 2 MG (COUMADIN) TAB PO SCH (17:08)
[2017-08-28] MEDS: HYDROcodone/APAP 5 MG/325 MG (LORTAB) TAB PO PRN (00:04)
[2017-08-28 06:00] VITALS: BP 119/69
[2017-08-28 06:15] LABS: INR 2.5 (0.8-1.4); PROTHROMBIN TIME PATIENT 27.4 SEC (12.2-14.7)
[2017-08-28] MEDS: VITAMIN D3 1,000 UNITS (CHOLECALCIFEROL) TABLET PO SCH (06:40)
[2017-08-28] MEDS: ACETAMINOPHEN 500 MG TAB (TYLENOL) PO SCH ×3 (06:40→21:05)
--- NOTE | 2017-08-28 08:46 | PM & R (SOAP) Progress Note ---
Subjective This was a face to face visit with the patient. Date Seen by Provider: Aug 28, 2017 Time Seen by Provider: 08:00 Subjective/Events-last exam Patient was seen in her room this AM Patient SBA for transfers INR noted Ecchymosis on face and left shoulder tenderness gradually improving Objective Physician Exam Last Set of Vital Signs Vital Signs Date Time Temp Pulse Resp B/P (MAP) Pulse Ox O2 Delivery O2 Flow Rate FiO2 08/28/17 06:00 97.8 66 19 119/69 (86) 97 Room Air Capillary Refill : Less Than 3 Seconds I&O Intake and Output 08/28/17 00:00 Intake Total 1550 ml Balance 1550 ml Intake Oral 1550 ml # Voids 6 General: Alert, Oriented X3, Cooperative, No Acute Distress HEENT: PERRLA, EOMI, Mucous Memb Moist/[place], Other (large left periorbital hematoma) Neck: Supple, No JVD Lungs: Clear to Auscultation Heart: Regular Rate Abdomen: Normal Bowel Sounds, Soft, No Tenderness Extremities: Other (Trace edema pretibial Left arm in sling) Neuro: Other (Strength 4+/5 BUES and RUE Left arm in sling with limited internal revenue agent strength left and tenderness over left elbow) Results Lab Data Laboratory Tests 08/26/17 06:05: Prothrombin Time 24.2H, INR Comment 2.2H 08/27/17 06:33: Prothrombin Time 25.8H, INR Comment 2.3H 08/28/17 05:45: Prothrombin Time 27.4H, INR Comment 2.5H Assessment/Plan Assessment and Plan CHI s/p fall resolved Impacted left humerus fracture proximal managed with sling Chonic anticoagulation INR therapeutic Depression controlled with meds OAB on med Plan Continue PT/OT Discharge set tentatively for next week Will discuss details with SW/ Team Monitor INR and adjust Coumadin dose as needed Dr Acharya PCP managing (1) Humerus head fracture Co-Morbidities that are continuing to impact the rehab process: (include details ) PAIGE JONES MD Aug 28, 2017 08:46
[2017-08-28] MEDS: DOCUSATE SODIUM 100 MG (COLACE) CAP PO SCH ×2 (09:08→20:22)
[2017-08-28] MEDS: OXYBUTYNIN (DITROPAN) 5 MG TAB PO SCH ×2 (09:08→20:22)
--- NOTE | 2017-08-28 09:11 | Occupational Ther Daily Note ---
OT Current Status-Daily Note Subjective Pt alert, sitting in recliner. Agrees to therapy. No c/o pain at this time. Mental Status/Objective Patient Orientation: Person, Place, Time, Situation Functional [place] Measure 0=Not Assessed/NA 4=Minimal Assistance 1=Total Assistance 5=Supervision or Setup 2=Maximal Assistance 6=Modified [place] 3=Moderate Assistance 7=Complete [place] ADL-Treatment Pt declined shower. Did agree to change clothing and grooming. Pt ambulated to bathroom using cane with SBA. Supervision to transfer to/from toilet using cane and grabbars. Completed toileting with SBA using grabbars. Sitting at sink, pt is able to complete grooming by self. Functional [place] Measure 0=Not Assessed/NA 4=Minimal Assistance 1=Total Assistance 5=Supervision or Setup 2=Maximal Assistance 6=Modified [place] 3=Moderate Assistance 7=Complete IndependenceIRFPAI Quality Coding Scale 6 Independent with activity with or without an assistive device 5 Patient requires set up or clean up by helper. Patient completes activity by themselves 4 Supervision or touching assist (CGA). [place] provide cues , steadying assist 3 The helper provides less than half the effort to complete the activity 2 The helper provides more than half the effort to complete the activity 1 Dependent. The helper does all the effort to complete an activity 7 Patient refused to complete or attempt activity 9 The patient did not perform the activity before the current illness or injury 88 Not attempted due to Medical conditions or safety concerns Grooming (FIM): 6 Oral Hygiene (QC): 6 Upper Body (FIM): 4 (After set up, pt is able to thread arms and head through shirt. Assist to adjust to correct position on L arm when stuck.) Upper Body Dressing (QC): 4 Lower Body Dressing (FIM): 5 (After set up, pt is able to complete lower body dressing with SBA when hiking pants over hips.) Lower Body Dressing (QC): 4 Toileting (FIM): 5 Toileting Hygiene (QC): 4 Toilet/Commode Transfer (FIM): 5 Toilet Transfer (QC): 4 Other Treatment Pt ambulated with SBA using cane to therapy gym. Pt complete arm bike 8 min at 20 hernández resistance using R UE only to increase strength and activity tolerance for daily functional tasks. Complete resistive fine motor tasks with R/L UE to increase pinch and fundraising director strength, tolerated well. 1/2# cuff around L hand, arm in sling, for wrist flexion/extension, 3 sets 10 reps. R wrist flex/ext and ulnar/radial deviation exercises with 2# wt. Scapular APROM exercises to work on ROM. L scapular motion is minimal at this time. After therapy, pt sitting in recliner in room. Call light/phone in reach. All needs met in room. OT Short Term Goals Short Term Goals Time Frame: Aug 26, 2017 Eating(FIM): 6 Grooming(FIM): 5 Bathing(FIM): 4 Upper Body Dressing(FIM): 4 Lower Body Dressing(FIM): 4 Toileting(FIM): 4 Transfers (B,C,W/C) (FIM): 5 Toilet/Commode Transfer(FIM): 5 Shower Transfer(FIM): 4 Additional Short Term Goals: 1-Demonstrate ADL Tasks, 2-Verbalize Understanding , 3-ImproveStrength/Cintia 1=Demonstrate adherence to instructed precautions during ADL tasks. 2=Patient will verbalize/demonstrate understanding of assistive devices/ modifications for ADL. 3=Patient will improve strength/tolerance for activity to enable patient to perform ADL's. OT Alf Goals Alf Goals Time Frame: Sep 02, 2017 Eating (FIM): 6 Eating (QC): 6 Groomin Oral Hygiene (QC): 5 Bathing(FIM): 5 Shower/Bathe Self (QC): 5 Upper Body Dressing(FIM): 6 Upper Body Dressing (QC): 6 Lower Body Dressing(FIM): 6 Lower Body Dressing (QC): 6 On/Off Footwear (QC): 6 Toileting(FIM): 6 Toileting Hygiene (QC): 6 Transfers (B,C,W/C) (FIM): 6 Toilet/Commode Transfer(FIM): 6 Toilet/Commode Transfer (QC): 6 Shower Transfer(FIM): 5 Additional Goals: 1-Demonstrate ADL Tasks, 2-Verbalize Understanding, 3- ImproveStrength/Cintia 1=Demonstrate adherence to instructed precautions during ADL tasks. 2=Patient will verbalize/demonstrate understanding of assistive devices/ modifications for ADL. 3=Patient will improve strength/tolerance for activity to enable patient to perform ADL's. OT Education/Plan Discharge Recommendations Plan/Recommendations: Continue POC Treatment Plan/Plan of Care Patient would benefit from OT for education, treatment and training to promote independence in ADL's, mobility, safety and/or upper extremity function for ADL' s. Plan of Care: ADL Retraining, Functional Mobility Treatment Duration: Sep 02, 2017 Frequency: At least 5 of 7 days/Wk (IRF) Estimated Hrs Per Day: 1.5 hours per day Agreement: Yes Rehab Potential: Good Time/GCodes Start Time: 08:30 Stop Time: 10:00 Total Time Billed (hr/min): 90 Billed Treatment Time 1 visit-ADL 2 (30 min) EX 4 (60 min) PAULINO MEJIA Aug 28, 2017 09:11
[2017-08-28] MEDS: MICONAZOLE 2% POWDER (DESENEX AF) 90 GM TOP SCH ×2 (09:13→20:23)
--- NOTE | 2017-08-28 12:59 | Physical Therapy Daily Note ---
PT Daily Note-Current Subjective Pt. agrees to Rx. State she has made regular progress and feels stronger daily. Pain Numeric Pain Scale: 0-No Pain Mental Status Patient Orientation: Normal For Age Attachments: Other-See Comments (sling LUE) Transfers Functional [place] Measure 0=Not Assessed/NA 4=Minimal Assistance 1=Total Assistance 5=Supervision or Setup 2=Maximal Assistance 6=Modified [place] 3=Moderate Assistance 7=Complete IndependenceIRFPAI Quality Coding Scale 6 Independent with activity with or without an assistive device 5 Patient requires set up or clean up by helper. Patient completes activity by themselves 4 Supervision or touching assist (CGA). [place] provide cues , steadying assist 3 The helper provides less than half the effort to complete the activity 2 The helper provides more than half the effort to complete the activity 1 Dependent. The helper does all the effort to complete an activity 7 Patient refused to complete or attempt activity 9 The patient did not perform the activity before the current illness or injury 88 Not attempted due to Medical conditions or safety concerns Transfers (B, C, W/C) (FIM): 6 Scootin Rollin Supine to/from Sit: 6 Sit to/from Stand: 6 Weight Bearing Right Lower Extremity: Right Full Weight Bearing Full Weight Bearing Left UE in a sling; NWB. Gait Training Does the Patient Walk?: Yes Gait (FIM): 5 Distance (FIM): 3=150 ft (170x2) Gait Level of Assist: 5 Gait Persons Needed: 1 Gait Assistive Device: Cane Small Base Quad slow, flexed at trunk Exercises Supine Ex: Bridging, Ankle pumps, Quad Set, Rolling, Glut sets, Heel Slides, Short Arc Quads, Scooting, Straight leg raise, Hip abd/add Supine Reps: 12 Seated Therapy Exercises: Ankle pumps, Sit to stand, Long arc quads, Hip flexion Seated Reps: 10 Standing: Hip Abduction, Heel/toe raises, Marching, Mini squats Standing Reps: 12 NuStep Minutes: 10 NuStep Workload: 5 Assessment Current Status: Good Progress PT Short Term Goals Short Term Goals Time Frame: Aug 26, 2017 Transfers (B,C,W/C) (FIM): 5 Gait (FIM): 5 Distance (FIM): 3=150 ft Gait Assistive Device: Cane Small Base Quad PT Army Senior Officer Goals Army Senior Officer Goals PT Army Senior Officer Goals Time Frame: Sep 04, 2017 Transfers (B,C,W/C) (FIM): 6 Sit to Lying (QC): 6 Lying-Sitting on Side/Bed(QC): 6 Sit to Stand (QC): 6 Rollin Roll Left to Right (QC): 6 Chair/Mvx-hg-Odxar Xfer(QC): 6 Car Transfer (QC): 6 Does the Patient Walk: Yes Gait (FIM): 6 Gait distance (FIM): 3=150 ft Walk 10 feet (QC): 6 Walk 10ft-Uneven Surface(QC): 6 Walk 50ft with 2 Turns (QC): 6 Walk 150 ft (QC): 6 Gait Level of Assist: 6 Gait Assistive Device: Cane Small Base Quad Does the Pt use WC or Scooter?: No Stairs (FIM): 5 # of Steps: 4 1 Step (curb) (QC): 6 4 Steps (QC): 6 12 Steps (QC): 88 Picking up an Object (QC): 88 PT Plan Treatment/Plan Treatment Plan: Continue Plan of Care Treatment Plan: Bed Mobility, Education, Functional Activity Cintia, Functional Strength, Group Therapy, Gait, Safety, Therapeutic Exercise, Transfers Treatment Duration: Sep 04, 2017 Frequency: At least 5 of 7 days/Wk (IRF) Estimated Hrs Per Day: 1.5 hours per day Patient and/or Family Agrees t: Yes Safety Risks/Education Patient Education: Gait Training, Transfer Techniques, Correct Positioning, Disease Process, Safety Issues Teaching Recipient: Patient Teaching Methods: Demonstration, Discussion Response to Teaching: Verbalize Understanding, Return Demonstration, Reinforcement Needed Time/GCodes Time In: 1100 Time Out: 1200 Total Billed Treatment Time: 60 Total Billed Treatment 1,GT20m,EX25m,FA15m G Codes Necessary: No ZION COLEY CONTROLS ENGINEER Aug 28, 2017 12:59
--- NOTE | 2017-08-28 14:40 | Therapy Group Daily Note ---
Therapy Daily Group Note Patient Education Topic Home Safety, Fall Prevention, Incontinence, Other List Below (balance) Exercises LE Seated Exercise, UE Exercise Other/Notes Pt. participated in group PT OT session this date. Pts. introduced themselves and shared something they recall being taught by their Father ( Fathers Day approaching). Sit to stand and stand to sit safety was discussed as well as safe technique demonstrated. Car TRF safety and balance also discussed. Fall prevention, safety techniques in shower and around home was discussed with all pts contributing and sharing pleasantly. Seated U&L ext exercises done as well. Pt. to bed after group with assist. Call tang at hand Start Time: 13:00 Stop Time: 14:15 Total Billed Treatment Time: 75 Total Billed Treatment 1,GRP ZION COLEY WAYS OPERATOR Aug 28, 2017 14:40
[2017-08-28] MEDS: warFARin 2 MG (COUMADIN) TAB PO SCH (17:39)
[2017-08-28 17:47] VITALS: BP 119/62
[2017-08-29 05:00] VITALS: BP 103/59
[2017-08-29 05:22] LABS: INR 2.6 (0.8-1.4); PROTHROMBIN TIME PATIENT 27.7 SEC (12.2-14.7)
[2017-08-29] MEDS: VITAMIN D3 1,000 UNITS (CHOLECALCIFEROL) TABLET PO SCH (06:02)
[2017-08-29] MEDS: ACETAMINOPHEN 500 MG TAB (TYLENOL) PO SCH ×3 (06:02→20:58)
[2017-08-29] MEDS: MICONAZOLE 2% POWDER (DESENEX AF) 90 GM TOP SCH ×2 (09:00→20:59)
[2017-08-29] MEDS: OXYBUTYNIN (DITROPAN) 5 MG TAB PO SCH ×2 (09:00→20:58)
[2017-08-29] MEDS: DOCUSATE SODIUM 100 MG (COLACE) CAP PO SCH ×2 (09:00→20:59)
--- NOTE | 2017-08-29 13:42 | Physical Therapy Daily Note ---
PT Daily Note-Current Subjective Pt sitting in recliner upon arrival. Pt agrees to PT. Pain Numeric Pain Scale: 3 Location: Left Location Body Site: Shoulder Pain Description: Ache Mental Status Patient Orientation: Person, Place, Time, Situation Attachments: Other-See Comments (L sling ) Transfers Functional [place] Measure 0=Not Assessed/NA 4=Minimal Assistance 1=Total Assistance 5=Supervision or Setup 2=Maximal Assistance 6=Modified [place] 3=Moderate Assistance 7=Complete IndependenceIRFPAI Quality Coding Scale 6 Independent with activity with or without an assistive device 5 Patient requires set up or clean up by helper. Patient completes activity by themselves 4 Supervision or touching assist (CGA). [place] provide cues , steadying assist 3 The helper provides less than half the effort to complete the activity 2 The helper provides more than half the effort to complete the activity 1 Dependent. The helper does all the effort to complete an activity 7 Patient refused to complete or attempt activity 9 The patient did not perform the activity before the current illness or injury 88 Not attempted due to Medical conditions or safety concerns Scootin Sit to/from Stand: 5 Sit to Stand (QC): 5 Weight Bearing Right Lower Extremity: Right Full Weight Bearing Full Weight Bearing Left UE in a sling; NWB. Gait Training Does the Patient Walk?: Yes Distance (FIM): 1=up to 49 ft Distance: 20' Walk 10 feet (QC): 5 Gait Assistive Device: Cane Small Base Quad Pt walks to restroom. Pt is encouraged to WB more on LLE to normalize gait. Exercises Supine Ex: Ankle pumps, Quad Set, Hip abd/add Supine Reps: 15 Seated Therapy Exercises: Long arc quads, Hip flexion, Kicking activity Seated Reps: 15 Treatments Pt completes Supine & Seated Ex in recliner. Pt also wants to discuss Discharge on Thursday and need to talk Tour Consultant about Family Training/ Family Mtg about what pt will need at home upon discharge. Pt advises need to use restroom and transfers to standing at SBA. Pt ambulates to restroom but advises will pull call line when finished. Pt has all needs met at end of tx. Assessment Current Status: Good Progress Pt has improved with strength and endurance during ARU stay. Pt is still nervous about returning home, especially being able to make it to restroom in urgent situations. PT Short Term Goals Short Term Goals Time Frame: Aug 26, 2017 Transfers (B,C,W/C) (FIM): 5 Gait (FIM): 5 Distance (FIM): 3=150 ft Gait Assistive Device: Cane Small Base Quad PT Senior Care Goals Glass Melt Operator Goals PT Senior Care Goals Time Frame: Sep 04, 2017 Transfers (B,C,W/C) (FIM): 6 Sit to Lying (QC): 6 Lying-Sitting on Side/Bed(QC): 6 Sit to Stand (QC): 6 Rollin Roll Left to Right (QC): 6 Chair/Mbk-ny-Qzhdy Xfer(QC): 6 Car Transfer (QC): 6 Does the Patient Walk: Yes Gait (FIM): 6 Gait distance (FIM): 3=150 ft Walk 10 feet (QC): 6 Walk 10ft-Uneven Surface(QC): 6 Walk 50ft with 2 Turns (QC): 6 Walk 150 ft (QC): 6 Gait Level of Assist: 6 Gait Assistive Device: Cane Small Base Quad Does the Pt use WC or Scooter?: No Stairs (FIM): 5 # of Steps: 4 1 Step (curb) (QC): 6 4 Steps (QC): 6 12 Steps (QC): 88 Picking up an Object (QC): 88 PT Plan Problem List Problem List: Activity Tolerance, Safety, Gait Treatment/Plan Treatment Plan: Continue Plan of Care Treatment Plan: Bed Mobility, Education, Functional Activity Cintia, Functional Strength, Group Therapy, Gait, Safety, Therapeutic Exercise, Transfers Treatment Duration: Sep 04, 2017 Frequency: At least 5 of 7 days/Wk (IRF) Estimated Hrs Per Day: 1.5 hours per day Patient and/or Family Agrees t: Yes Safety Risks/Education Patient Education: Gait Training, Transfer Techniques, Correct Positioning, Safety Issues Teaching Recipient: Patient Teaching Methods: Discussion Response to Teaching: Verbalize Understanding Time/GCodes Time In: 1215 Time Out: 1240 Total Billed Treatment Time: 25 Total Billed Treatment 1, EX (15m) & FA (10m) G Codes Necessary: JORDEN Vail PEST CONTROL OPERATOR Aug 29, 2017 13:42
[2017-08-29 18:02] VITALS: BP 111/79
[2017-08-29] MEDS: warFARin 2 MG (COUMADIN) TAB PO SCH (18:46)
[2017-08-30 05:02] VITALS: BP 148/69
[2017-08-30] MEDS: VITAMIN D3 1,000 UNITS (CHOLECALCIFEROL) TABLET PO SCH (06:05)
[2017-08-30] MEDS: ACETAMINOPHEN 500 MG TAB (TYLENOL) PO SCH ×3 (06:05→21:43)
[2017-08-30 06:23] LABS: INR 2.8 (0.8-1.4); PROTHROMBIN TIME PATIENT 29.4 SEC (12.2-14.7)
[2017-08-30] MEDS: OXYBUTYNIN (DITROPAN) 5 MG TAB PO SCH ×2 (09:57→20:34)
[2017-08-30] MEDS: DOCUSATE SODIUM 100 MG (COLACE) CAP PO SCH ×2 (10:17→19:18)
[2017-08-30] MEDS: MICONAZOLE 2% POWDER (DESENEX AF) 90 GM TOP SCH ×2 (10:19→20:35)
[2017-08-30] MEDS: warFARin 2 MG (COUMADIN) TAB PO SCH (17:52)
[2017-08-30 18:36] VITALS: BP 132/72
[2017-08-31] MEDS: ACETAMINOPHEN 500 MG TAB (TYLENOL) PO SCH ×3 (05:09→22:11)
[2017-08-31 05:41] LABS: INR 2.9 (0.8-1.4); PROTHROMBIN TIME PATIENT 30.2 SEC (12.2-14.7)
[2017-08-31 05:49] VITALS: BP 125/70
[2017-08-31] MEDS: VITAMIN D3 1,000 UNITS (CHOLECALCIFEROL) TABLET PO SCH (06:04)
[2017-08-31] MEDS: DOCUSATE SODIUM 100 MG (COLACE) CAP PO SCH ×2 (08:23→21:00)
[2017-08-31] MEDS: MICONAZOLE 2% POWDER (DESENEX AF) 90 GM TOP SCH ×2 (08:23→21:28)
[2017-08-31] MEDS: OXYBUTYNIN (DITROPAN) 5 MG TAB PO SCH ×2 (08:23→21:27)
--- NOTE | 2017-08-31 08:45 | Occupational Ther Daily Note ---
OT Current Status-Daily Note Subjective Pt dozing in recliner, woke easily to name. Pt agrees to therapy. No c/o pain at this time. Mental Status/Objective Patient Orientation: Person, Place, Time, Situation Functional [place] Measure 0=Not Assessed/NA 4=Minimal Assistance 1=Total Assistance 5=Supervision or Setup 2=Maximal Assistance 6=Modified [place] 3=Moderate Assistance 7=Complete [place] ADL-Treatment Functional [place] Measure 0=Not Assessed/NA 4=Minimal Assistance 1=Total Assistance 5=Supervision or Setup 2=Maximal Assistance 6=Modified [place] 3=Moderate Assistance 7=Complete IndependenceIRFPAI Quality Coding Scale 6 Independent with activity with or without an assistive device 5 Patient requires set up or clean up by helper. Patient completes activity by themselves 4 Supervision or touching assist (CGA). [place] provide cues , steadying assist 3 The helper provides less than half the effort to complete the activity 2 The helper provides more than half the effort to complete the activity 1 Dependent. The helper does all the effort to complete an activity 7 Patient refused to complete or attempt activity 9 The patient did not perform the activity before the current illness or injury 88 Not attempted due to Medical conditions or safety concerns Grooming (FIM): 5 (Supervision in standing at sink to complete grooming.) Oral Hygiene (QC): 4 Bathing (FIM): 5 (SBA using shower bench, grabbar, hand held shower and long handle sponge. Pt able to reach all places. Close SBA in standing to cleanse darya area/buttocks.) Bathing Location: L Arm, R Arm, L Upper Leg, R Upper Leg, L Lower Leg ( including foot), R Lower Leg (including foot), Chest, Abdomen, Buttocks, Perineal Area Shower/Bathe Self (QC): 4 Upper Body (FIM): 5 (SBA using cane to retrieve clothing from closet. Pt able to complete upper body dressing by self.) Upper Body Dressing (QC): 4 Lower Body Dressing (FIM): 5 (SBA to retrieve clothing from closet with cane. SBA in standing to hike pants over hips. Pt is donning/doffing clothing without AE.) Lower Body Dressing (QC): 4 On/Off Footwear (QC): 6 Toileting (FIM): 5 (Using BSC and grabbars pt is able to complete with supervision.) Toileting Hygiene (QC): 4 Toilet/Commode Transfer (FIM): 6 (Using cane, grabbars and BSC pt is able to complete by self.) Toilet Transfer (QC): 6 Shower Transfer(FIM): 6 (Using shower bench and grabbars pt is able to complete.) Other Treatment Pt ambulated to therapy gym and completed arm bike for 10 min at 20 hernández resistance to increase strength and activity tolerance for daily functional tasks. 1/2# wt L wrist flex/ext exercises in horizontal plane for support of L shldr for AROM and strengthening. Worked on picking items up from different height, completed with close SBA using cane. Ambulated to kitchen and was able to open/close microwave, drawers and refrigerator stabilizing self with counter top. Pt then ambulated back to recliner to work on L elbow flex/ext. Decreased ROM in flex/ext of elbow. After therapy, pt sitting in recliner with call light/phone in reach. All needs met in room. OT Short Term Goals Short Term Goals Time Frame: Aug 26, 2017 Eating(FIM): 6 Grooming(FIM): 5 Bathing(FIM): 4 Upper Body Dressing(FIM): 4 Lower Body Dressing(FIM): 4 Toileting(FIM): 4 Transfers (B,C,W/C) (FIM): 5 Toilet/Commode Transfer(FIM): 5 Shower Transfer(FIM): 4 Additional Short Term Goals: 1-Demonstrate ADL Tasks, 2-Verbalize Understanding , 3-ImproveStrength/Cintia 1=Demonstrate adherence to instructed precautions during ADL tasks. 2=Patient will verbalize/demonstrate understanding of assistive devices/ modifications for ADL. 3=Patient will improve strength/tolerance for activity to enable patient to perform ADL's. OT Rail Filler Goals Rail Filler Goals Time Frame: Sep 02, 2017 Eating (FIM): 6 Eating (QC): 6 Groomin Oral Hygiene (QC): 5 Bathing(FIM): 5 Shower/Bathe Self (QC): 5 Upper Body Dressing(FIM): 6 Upper Body Dressing (QC): 6 Lower Body Dressing(FIM): 6 Lower Body Dressing (QC): 6 On/Off Footwear (QC): 6 Toileting(FIM): 6 Toileting Hygiene (QC): 6 Transfers (B,C,W/C) (FIM): 6 Toilet/Commode Transfer(FIM): 6 Toilet/Commode Transfer (QC): 6 Shower Transfer(FIM): 5 Additional Goals: 1-Demonstrate ADL Tasks, 2-Verbalize Understanding, 3- ImproveStrength/Cintia 1=Demonstrate adherence to instructed precautions during ADL tasks. 2=Patient will verbalize/demonstrate understanding of assistive devices/ modifications for ADL. 3=Patient will improve strength/tolerance for activity to enable patient to perform ADL's. OT Education/Plan Discharge Recommendations Plan/Recommendations: Continue POC Treatment Plan/Plan of Care Patient would benefit from OT for education, treatment and training to promote independence in ADL's, mobility, safety and/or upper extremity function for ADL' s. Plan of Care: ADL Retraining, Functional Mobility Treatment Duration: Sep 02, 2017 Frequency: At least 5 of 7 days/Wk (IRF) Estimated Hrs Per Day: 1.5 hours per day Agreement: Yes Rehab Potential: Good Time/GCodes Start Time: 07:00 Stop Time: 08:30 Total Time Billed (hr/min): 90 Billed Treatment Time 1 visit-ADL 4 (60 min) FA 1 (15 min) EX 1 (15 min) PAULINO MEJIA Aug 31, 2017 08:45
--- NOTE | 2017-08-31 11:58 | Physical Therapy Daily Note ---
PT Daily Note-Current Subjective Pt sitting in recliner after just finishing with OT upon arrival. Pt agrees to PT. Pain Numeric Pain Scale: 3 Location: Left Location Body Site: Shoulder Pain Description: Ache Mental Status Patient Orientation: Person, Place, Time, Situation Attachments: Other-See Comments (Sling for LUE) Transfers Functional [place] Measure 0=Not Assessed/NA 4=Minimal Assistance 1=Total Assistance 5=Supervision or Setup 2=Maximal Assistance 6=Modified [place] 3=Moderate Assistance 7=Complete IndependenceIRFPAI Quality Coding Scale 6 Independent with activity with or without an assistive device 5 Patient requires set up or clean up by helper. Patient completes activity by themselves 4 Supervision or touching assist (CGA). [place] provide cues , steadying assist 3 The helper provides less than half the effort to complete the activity 2 The helper provides more than half the effort to complete the activity 1 Dependent. The helper does all the effort to complete an activity 7 Patient refused to complete or attempt activity 9 The patient did not perform the activity before the current illness or injury 88 Not attempted due to Medical conditions or safety concerns Scootin Sit to/from Stand: 6 Sit to Stand (QC): 6 Weight Bearing Right Lower Extremity: Right Full Weight Bearing Full Weight Bearing Left UE in a sling; NWB. Gait Training Does the Patient Walk?: Yes Distance (FIM): 3=150 ft Distance: 350' Walk 10 feet (QC): 6 Walk 50 ft with 2 Turns(QC): 6 Walk 150 ft (QC): 6 Gait Level of Assist: 6 Gait Persons Needed: 1 Gait Assistive Device: Cane Small Base Quad Pt takes short standing rest breaks as needed. Wheelchair Training Does the Pt Use a Wheelchair?: No Exercises Supine Ex: Ankle pumps, Quad Set, Glut sets, Heel Slides, Straight leg raise, Hip abd/add Supine Reps: 15 Seated Therapy Exercises: Ankle pumps, Long arc quads, Hip flexion, Kicking activity, Hip abd/add Seated Reps: 20 Treatments Pt transfers from recliner to standing using SBQC at Mod I. Pt ambulates in hallway before resting at EOM. Pt completes Supine Ex followed by Seated Ex on mat. Pt takes short rest before ambulating in hallway again. Pt returns to room to use restroom at end of tx. Pt has all needs met. Assessment Current Status: Good Progress Pt continues to gain strength through Ex and self-motivation in completing Ex independently. Pt's gait has also improved as strength as improved to demonstrate a more normalized gait pattern. PT Short Term Goals Short Term Goals Time Frame: Aug 26, 2017 Transfers (B,C,W/C) (FIM): 5 Gait (FIM): 5 Distance (FIM): 3=150 ft Gait Assistive Device: Cane Small Base Quad PT Tool/Die Maker Goals Tool/Die Maker Goals PT Prison Goals Time Frame: Sep 04, 2017 Transfers (B,C,W/C) (FIM): 6 Sit to Lying (QC): 6 Lying-Sitting on Side/Bed(QC): 6 Sit to Stand (QC): 6 Rollin Roll Left to Right (QC): 6 Chair/Ubh-qd-Teuxg Xfer(QC): 6 Car Transfer (QC): 6 Does the Patient Walk: Yes Gait (FIM): 6 Gait distance (FIM): 3=150 ft Walk 10 feet (QC): 6 Walk 10ft-Uneven Surface(QC): 6 Walk 50ft with 2 Turns (QC): 6 Walk 150 ft (QC): 6 Gait Level of Assist: 6 Gait Assistive Device: Cane Small Base Quad Does the Pt use WC or Scooter?: No Stairs (FIM): 5 # of Steps: 4 1 Step (curb) (QC): 6 4 Steps (QC): 6 12 Steps (QC): 88 Picking up an Object (QC): 88 PT Plan Problem List Problem List: Activity Tolerance, Gait Treatment/Plan Treatment Plan: Continue Plan of Care Treatment Plan: Bed Mobility, Education, Functional Activity Cintia, Functional Strength, Group Therapy, Gait, Safety, Therapeutic Exercise, Transfers Treatment Duration: Sep 04, 2017 Frequency: At least 5 of 7 days/Wk (IRF) Estimated Hrs Per Day: 1.5 hours per day Patient and/or Family Agrees t: Yes Safety Risks/Education Patient Education: Gait Training, Transfer Techniques, Correct Positioning, Safety Issues Teaching Recipient: Patient Teaching Methods: Discussion Response to Teaching: Verbalize Understanding Time/GCodes Time In: 830 Time Out: 930 Total Billed Treatment Time: 60 Total Billed Treatment 1, GT x2 (30m) & EX x2 (30m) G Codes Necessary: No JORDEN ESPINOSA MERCHANDISE ASSOCIATE Aug 31, 2017 11:58
--- NOTE | 2017-08-31 13:38 | D/C HH Face to Face Order ---
D/C Face to Face Orders Instructions for Patient Patient Instructions/FollowUp: Dr. Acharya Physician to follow Patient: Dr. Acharya Discharge Diet for Home: Regular Diet Patient Data-Allergies,Ht & Wt Patient Allergies: Coded Allergies: Penicillins (Verified Allergy, Mild, 08/17/17) Height (Feet): 5 Height (Inches): 0.00 Weight (Pounds): 227 Weight (Ounces): 0.8 Home Health Need/Face to Face Date of Face to Face: Sep 02, 2017 Clinical Findings: Generalized weakness and fatigue, Muscle weakness, Non or partial weight bearing, Unsteady gait I have seen Pt [id number]: Yes Discharged To: Home Diagnosis/Conditions: Closed Head Injury post fall Patient is Homebound due to: Laura fall risk due to instabilty, Muscle weakness , Non-weight bearing Homebound Status Due to the above stated illness, injury or surgical procedure (medical condition or diagnosis) and associated clinical findings, the patient is homebound because of his/her inability to leave home except with aid of a supportive device and/or person AND leaving the home requires a considerable and taxing effort or is medically contraindicated. Pt req the following assistanc: Cane Home Health Nursing Orders Home Health Services Order: High School Director-Evaluate & Treat, Physical Therapy-Evaluate & Treat Home Health Infusion Therapy Line Type: Saline Lock Site Location: Forearm Therapy Orders Therapy Orders: OT (must have SN or PT order), Physical Therapy Therapy Specific Orders: Eval assistive deivces, Teach enviro modifications/ safety, Gait training, Increase strength/endurance Certify Stmt I certify that this patient is under my care and that I, a nurse practitioner or a physician; a environmental engineering assistant working with me, had a face to face encounter that - meets the physician face to face encounter requirements with this patient as dated. I personally scribed for PAIGE JONES MD ([facility]) on 08/31/17 at 13:38. Electronically submitted by Tomasa Greene ([id number]). PAIGE JONES MD Aug 31, 2017 13:38
--- NOTE | 2017-08-31 14:17 | PM & R (SOAP) Progress Note ---
Subjective This was a face to face visit with the patient. Date Seen by Provider: Aug 31, 2017 Time Seen by Provider: 14:00 Subjective/Events-last exam Patient was seen in her room this afternoon Patient Modified Independent for transfers Objective Physician Exam Last Set of Vital Signs Vital Signs Date Time Temp Pulse Resp B/P (MAP) Pulse Ox O2 Delivery O2 Flow Rate FiO2 08/31/17 08:38 Room Air 08/31/17 05:49 98.4 57 16 125/70 (88) 98 Capillary Refill : Less Than 3 Seconds I&O Intake and Output 08/31/17 00:00 Intake Total 1495 ml Balance 1495 ml Intake Oral 1495 ml # Voids 6 General: Alert, Oriented X3, Cooperative, No Acute Distress HEENT: PERRLA, EOMI, Mucous Memb Moist/[place], Other (large left periorbital hematoma) Neck: Supple, No JVD Lungs: Clear to Auscultation Heart: Regular Rate Abdomen: Normal Bowel Sounds, Soft, No Tenderness Extremities: Other (Trace edema pretibial Left arm in sling) Neuro: Other (Strength 4+/5 BUES and RUE Left arm in sling with limited medical claims representative strength left and tenderness over left elbow) Results Lab Data Laboratory Tests 08/29/17 04:55: Prothrombin Time 27.7H, INR Comment 2.6H 08/30/17 06:06: Prothrombin Time 29.4H, INR Comment 2.8H 08/31/17 05:10: Prothrombin Time 30.2H, INR Comment 2.9H Assessment/Plan Assessment and Plan CHI s/p fall resolved ST has signed off Impacted left humerus fracture proximal managed with sling Chronic anticoagulation INR therapeutic Depression controlled with meds Plan Continue PT/OT Team Conference 09-02-17 Will discuss Discharge plane with SW/Team (1) Humerus head fracture Co-Morbidities that are continuing to impact the rehab process: (include details ) PAIGE JONES MD Aug 31, 2017 14:17
--- NOTE | 2017-08-31 14:43 | Physical Therapy Daily Note ---
PT Daily Note-Current Subjective Pt sitting in recliner upon arrival. Pt agrees to PT and wants to test for Ad xi in room. Pain Comment: Pt reports no pain although reports feeling more discomfort w/face movement Mental Status Patient Orientation: Person, Place, Time, Situation Attachments: Other-See Comments (Sling for LUE) Transfers Functional [place] Measure 0=Not Assessed/NA 4=Minimal Assistance 1=Total Assistance 5=Supervision or Setup 2=Maximal Assistance 6=Modified [place] 3=Moderate Assistance 7=Complete IndependenceIRFPAI Quality Coding Scale 6 Independent with activity with or without an assistive device 5 Patient requires set up or clean up by helper. Patient completes activity by themselves 4 Supervision or touching assist (CGA). [place] provide cues , steadying assist 3 The helper provides less than half the effort to complete the activity 2 The helper provides more than half the effort to complete the activity 1 Dependent. The helper does all the effort to complete an activity 7 Patient refused to complete or attempt activity 9 The patient did not perform the activity before the current illness or injury 88 Not attempted due to Medical conditions or safety concerns Scootin Sit to/from Stand: 6 Sit to Stand (QC): 6 Weight Bearing Right Lower Extremity: Right Full Weight Bearing Full Weight Bearing Left UE in a sling; NWB. Gait Training Does the Patient Walk?: Yes Distance (FIM): 4=024-54 ft Distance: 50' Walk 10 feet (QC): 6 Walk 50 ft with 2 Turns(QC): 6 Gait Level of Assist: 6 Gait Persons Needed: 1 Gait Assistive Device: Cane Small Base Quad Pt is able to walk throughout room at Mod I with SBQC so pt is made Ad xi in room. Wheelchair Training Does the Pt Use a Wheelchair?: No Treatments Rehab Dr arrives at beginning of tx to check on pt. Loading Unit Operator arrives after Dr leaves and pt, PITCH FLAKER & Loading Unit Operator discuss discharge choices such as BSC if needed as well as HH provider & Caregiver choices. Pt is then tested for Ad xi in room. Pt toilets self and able to ambulate throughout room including getting items from closet as needed. Pt returns to recliner to rest at end of tx. Pt has all needs met, including call light next to pt. Nurse is notified of pt being made Ad xi and confirms appropriateness. Assessment Current Status: Good Progress Pt has gained strength and activity tolerance for transfers and mobility during staying on ARU. PT Short Term Goals Short Term Goals Time Frame: Aug 26, 2017 Transfers (B,C,W/C) (FIM): 5 Gait (FIM): 5 Distance (FIM): 3=150 ft Gait Assistive Device: Cane Small Base Quad PT Mcc Goals Mcc Goals PT Mcc Goals Time Frame: Sep 04, 2017 Transfers (B,C,W/C) (FIM): 6 Sit to Lying (QC): 6 Lying-Sitting on Side/Bed(QC): 6 Sit to Stand (QC): 6 Rollin Roll Left to Right (QC): 6 Chair/Qru-vx-Rutyg Xfer(QC): 6 Car Transfer (QC): 6 Does the Patient Walk: Yes Gait (FIM): 6 Gait distance (FIM): 3=150 ft Walk 10 feet (QC): 6 Walk 10ft-Uneven Surface(QC): 6 Walk 50ft with 2 Turns (QC): 6 Walk 150 ft (QC): 6 Gait Level of Assist: 6 Gait Assistive Device: Cane Small Base Quad Does the Pt use WC or Scooter?: No Stairs (FIM): 5 # of Steps: 4 1 Step (curb) (QC): 6 4 Steps (QC): 6 12 Steps (QC): 88 Picking up an Object (QC): 88 PT Plan Problem List Problem List: Activity Tolerance Treatment/Plan Treatment Plan: Continue Plan of Care Treatment Plan: Bed Mobility, Education, Functional Activity Cintia, Functional Strength, Group Therapy, Gait, Safety, Therapeutic Exercise, Transfers Treatment Duration: Sep 04, 2017 Frequency: At least 5 of 7 days/Wk (IRF) Estimated Hrs Per Day: 1.5 hours per day Patient and/or Family Agrees t: Yes Safety Risks/Education Patient Education: Correct Positioning, Safety Issues Teaching Recipient: Patient Teaching Methods: Discussion Response to Teaching: Verbalize Understanding Time/GCodes Time In: 1400 Time Out: 1440 Total Billed Treatment Time: 40 Total Billed Treatment 1, FA x3 (40m) G Codes Necessary: JORDEN Vail PITCH FLAKER Aug 31, 2017 14:43
[2017-08-31] MEDS: warFARin 2 MG (COUMADIN) TAB PO SCH (17:03)
[2017-08-31 17:27] VITALS: BP 112/67
[2017-09-01 06:00] VITALS: BP 104/65
[2017-09-01] MEDS: VITAMIN D3 1,000 UNITS (CHOLECALCIFEROL) TABLET PO SCH (06:15)
[2017-09-01] MEDS: ACETAMINOPHEN 500 MG TAB (TYLENOL) PO SCH ×3 (06:15→20:39)
[2017-09-01 06:32] LABS: INR 2.9 (0.8-1.4); PROTHROMBIN TIME PATIENT 30.6 SEC (12.2-14.7)
[2017-09-01] MEDS: MICONAZOLE 2% POWDER (DESENEX AF) 90 GM TOP SCH ×2 (08:25→20:42)
[2017-09-01] MEDS: OXYBUTYNIN (DITROPAN) 5 MG TAB PO SCH ×2 (08:25→20:39)
[2017-09-01] MEDS: DOCUSATE SODIUM 100 MG (COLACE) CAP PO SCH ×2 (08:26→20:39)
--- NOTE | 2017-09-01 08:38 | Occupational Ther Daily Note ---
OT Current Status-Daily Note Subjective Pt dozing in recliner, woke to name. Pt agrees to therapy. No c/o pain. Mental Status/Objective Patient Orientation: Person, Place, Time, Situation Functional [place] Measure 0=Not Assessed/NA 4=Minimal Assistance 1=Total Assistance 5=Supervision or Setup 2=Maximal Assistance 6=Modified [place] 3=Moderate Assistance 7=Complete [place] ADL-Treatment Functional [place] Measure 0=Not Assessed/NA 4=Minimal Assistance 1=Total Assistance 5=Supervision or Setup 2=Maximal Assistance 6=Modified [place] 3=Moderate Assistance 7=Complete IndependenceIRFPAI Quality Coding Scale 6 Independent with activity with or without an assistive device 5 Patient requires set up or clean up by helper. Patient completes activity by themselves 4 Supervision or touching assist (CGA). [place] provide cues , steadying assist 3 The helper provides less than half the effort to complete the activity 2 The helper provides more than half the effort to complete the activity 1 Dependent. The helper does all the effort to complete an activity 7 Patient refused to complete or attempt activity 9 The patient did not perform the activity before the current illness or injury 88 Not attempted due to Medical conditions or safety concerns Eating (FIM): 7 (Pt able to open containers/packages by self and use regular utensil to eat.) Eating (QC): 6 Grooming (FIM): 7 (Pt holds onto sink and completes own grooming.) Oral Hygiene (QC): 6 Bathing (FIM): 6 (Using shower bench, hand held shower, long handle sponge and grabbars pt able to complete bathing by self.) Bathing Location: L Arm, R Arm, L Upper Leg, R Upper Leg, L Lower Leg ( including foot), R Lower Leg (including foot), Chest, Abdomen, Buttocks, Perineal Area Shower/Bathe Self (QC): 6 Upper Body (FIM): 6 (Using widebase cane, pt able to retrieve clothing, transport to bathroom and dress by self.) Upper Body Dressing (QC): 6 Lower Body Dressing (FIM): 6 (Using widebase cane, pt able to retrieve clothing , transport to bathroom and dress by self.) Lower Body Dressing (QC): 6 On/Off Footwear (QC): 7 (Dons/doffs by self.) Toileting (FIM): 6 (Using grabbar and BSC, pt able to complete by self.) Toileting Hygiene (QC): 6 Transfers (B, C, W/C) (FIM): 6 Toilet/Commode Transfer (FIM): 6 (Using widebase cane, grabbar and BSC pt able to complete transfer.) Toilet Transfer (QC): 6 Shower Transfer(FIM): 6 (Using grabbar and BSC, pt able to complete by self.) Discussed with pt about BSC and other AE that can be used for safety in home. Catalog given for resource. Pt does have chair to put in shower and grabbars. Pt does not have grabbars or elevated seat on toilet. Pt educated on moving slowly when sit to standing before ambulating due to history of dizziness. Pt able to don/doff sling by self. Other Treatment Pt completed arm bike using R UE 10 min duration at 20 hernández resistance to increase strength and activity tolerance for daily functional tasks. Then completed L wrist flex/ext with 1# wt. L ulnar/radial deviation with 1/2# wt. L UE in sling, L elbow at 90 degrees, L UE supported during wrist exercises. B scapular retraction completed for mobility. L elbow flex/ext AROM. Resistive clothespins completed with R hand to increase strength of pinch for daily functional tasks. Pt ambulated back to room and requested to use toilet. Pt up ad xi in room. Mod I for toileting. Nrsg in room. Call light/phone in reach. All needs met in room. OT Short Term Goals Short Term Goals Time Frame: Aug 26, 2017 Eating(FIM): 6 Grooming(FIM): 5 Bathing(FIM): 4 Upper Body Dressing(FIM): 4 Lower Body Dressing(FIM): 4 Toileting(FIM): 4 Transfers (B,C,W/C) (FIM): 5 Toilet/Commode Transfer(FIM): 5 Shower Transfer(FIM): 4 Additional Short Term Goals: 1-Demonstrate ADL Tasks, 2-Verbalize Understanding , 3-ImproveStrength/[place] 1=Demonstrate adherence to instructed precautions during ADL tasks. 2=Patient will verbalize/demonstrate understanding of assistive devices/ modifications for ADL. 3=Patient will improve strength/tolerance for activity to enable patient to perform ADL's. OT Dinkey Operator Slag Goals Dinkey Operator Slag Goals Time Frame: Sep 02, 2017 Eating (FIM): 6 (met-09/01/2017) Eating (QC): 6 (met-09/01/2017) Groomin (met-09/01/2017) Oral Hygiene (QC): 5 (met-09/01/2017) Bathing(FIM): 5 (met-09/01/2017) Shower/Bathe Self (QC): 5 (met-09/01/2017) Upper Body Dressing(FIM): 6 (met-09/01/2017) Upper Body Dressing (QC): 6 (met-09/01/2017) Lower Body Dressing(FIM): 6 (met-09/01/2017) Lower Body Dressing (QC): 6 (met-09/01/2017) On/Off Footwear (QC): 6 (met-09/01/2017) Toileting(FIM): 6 (met-09/01/2017) Toileting Hygiene (QC): 6 (met-09/01/2017) Transfers (B,C,W/C) (FIM): 6 (met-09/01/2017) Toilet/Commode Transfer(FIM): 6 (met-09/01/2017) Toilet/Commode Transfer (QC): 6 (met-09/01/2017) Shower Transfer(FIM): 5 (met-09/01/2017) Additional Goals: 1-Demonstrate ADL Tasks, 2-Verbalize Understanding, 3- ImproveStrength/Cintia 1=Demonstrate adherence to instructed precautions during ADL tasks. 2=Patient will verbalize/demonstrate understanding of assistive devices/ modifications for ADL. 3=Patient will improve strength/tolerance for activity to enable patient to perform ADL's. OT Education/Plan Discharge Recommendations Plan/Recommendations: Continue POC Treatment Plan/Plan of Care Patient would benefit from OT for education, treatment and training to promote independence in ADL's, mobility, safety and/or upper extremity function for ADL' s. Plan of Care: ADL Retraining, Functional Mobility Treatment Duration: Sep 02, 2017 Frequency: At least 5 of 7 days/Wk (IRF) Estimated Hrs Per Day: 1.5 hours per day Agreement: Yes Rehab Potential: Good Time/GCodes Start Time: 06:55 Stop Time: 08:25 Total Time Billed (hr/min): 90 Billed Treatment Time 1 visit-ADL 3 (50 min) EX 2 (25 min) FA 1 (15 min) PAULINO MEJIA Sep 01, 2017 08:38
--- NOTE | 2017-09-01 09:38 | PM & R (SOAP) Progress Note ---
Subjective This was a face to face visit with the patient. Date Seen by Provider: Sep 01, 2017 Time Seen by Provider: 08:00 Subjective/Events-last exam Patient was seen in common area this AM Patient Modified Independent for transfers.All set for discharge tomorrow.Current meds reviewed Objective Physician Exam Last Set of Vital Signs Vital Signs Date Time Temp Pulse Resp B/P (MAP) Pulse Ox O2 Delivery O2 Flow Rate FiO2 09/01/17 06:00 97.2 57 19 104/65 (78) 94 Room Air Capillary Refill : Less Than 3 Seconds I&O Intake and Output 09/01/17 00:00 Intake Total 1750 ml Balance 1750 ml Intake Oral 1750 ml # Voids 6 # Bowel Movements 1 General: Alert, Oriented X3, Cooperative, No Acute Distress HEENT: PERRLA, EOMI, Mucous Memb Moist/[place], Other (large left periorbital hematoma) Neck: Supple, No JVD Lungs: Clear to Auscultation Heart: Regular Rate Abdomen: Normal Bowel Sounds, Soft, No Tenderness Extremities: Other (Trace edema pretibial Left arm in sling) Neuro: Other (Strength 4+/5 BUES and RUE Left arm in sling with limited police magistrate strength left and tenderness over left elbow) Results Lab Data Laboratory Tests 08/30/17 06:06: Prothrombin Time 29.4H, INR Comment 2.8H 08/31/17 05:10: Prothrombin Time 30.2H, INR Comment 2.9H 09/01/17 05:18: Prothrombin Time 30.6H, INR Comment 2.9H Assessment/Plan Assessment and Plan CHI s/p fall resolved Impacted left humerus fracture proximal managed with sling Chronic anticoagulation Depression controlled with meds Plan Continue Pt/OT Discharge to home planned for tomorrow with [facility] (1) Humerus head fracture Co-Morbidities that are continuing to impact the rehab process: (include details ) PAIGE JONES MD Sep 01, 2017 09:38
[2017-09-01] MEDS ORDERED: ACET325C5 PO (10:24)
--- NOTE | 2017-09-01 10:32 | Progress Note-Hospitalist ---
Subjective HPI/CC On Admission Date Seen by Provider: Sep 01, 2017 Time Seen by Provider: 10:00 Patient reports doing better today with improvement in balance. She felt and heard some popping in the left shoulder with her sling off with some gentle range of motion in the shower. She became concerned about repeat fracture but denied any associated pain. Dr. Day was notified and repeat x-ray is pending. She has an ice bag on the shoulder but is not reporting any pain currently. She denies lightheadedness getting up. She reports is been 2 days since her last bowel movement. She's been averaging a half a hydrocodone twice a day with no other pain medication at this time available to her. She denies any problems with headaches or neck pain. Subjective/Events-last exam Patient reports feeling better minimal left arm discomfort. Her only concern ongoing home would be not making it to the bathroom in time. She's not had any incontinence problems here and is been independently in to the bathroom and back. She is not been using the bedside commode here recently per her report and is feeling more stable on her feet. She's had no lightheadedness. She had what sound like a migraine headache that resolved with one hydrocodone on the with no subsequent headaches. Staff report that she is doing well there is been no confusion and no neurologic change. Objective Exam Vital Signs Vital Signs Date Time Temp Pulse Resp B/P (MAP) Pulse Ox O2 Delivery O2 Flow Rate FiO2 09/01/17 09:45 Room Air 09/01/17 06:00 97.2 57 19 104/65 (78) 94 Capillary Refill : Less Than 3 Seconds General Appearance: No Apparent Distress, Obese HEENT: Other (Organizing hematoma left for had stable no swelling elsewhere about the face with ecchymosis in evolution.) Respiratory: Chest Non Tender, Lungs Clear, Normal Breath Sounds, No Accessory Muscle Use, No Respiratory Distress Cardiovascular: Regular Rate, Rhythm, No Edema, No Gallop, No JVD, No Murmur, Normal Peripheral Pulses Extremity: Other (One plus lower extremity edema stable) Neurologic/Psychiatric: Alert, Oriented x3, No Motor/Sensory Deficits Results/Procedures Lab Patient resulted labs reviewed. Assessment/Plan Assessment and Plan Assess & Plan/Chief Complaint A/P 1. Impacted minimally displaced left humeral neck fracture with elbow contusion improving. Tentative discharge for tomorrow with home health care. Address patient's concerns. [place] a hardship for her to try to get to goal enough so we'll hold orthopedic referral considering she is progressing well without complication with a stable impacted humeral head fracture. I will see her back for office follow-up in 1-2 weeks after discharge with plans for home care with physical therapy as the patient definitely qualifies and meets homebound status.. 2. Debility improving. Continue PT and OT. 3. Coumadin management past history of DVTs and pulmonary embolism. INRs of unstable in the 2.8-2.9 range we will DC daily INRs with having home care repeat INR next Thursday 4. Constipation will start scheduled low-dose Tylenol with continued when necessary hydrocodone in addition to stool softeners twice a day. Clinical Quality Measures DVT/VTE Risk/Contraindication: Risk Factor Score Per Nursin RFS Level Per Nursing on Admit: 4+=Very High YADI BATES MD Sep 01, 2017 10:32
--- NOTE | 2017-09-01 11:03 | Physical Therapy Daily Note ---
PT Daily Note-Current Subjective Pt. states she feels she has made a lot of progress and is ready to go home. Has been up ad xi in her room to toilet etc. no c/o pain. Pain Numeric Pain Scale: 0-No Pain Mental Status Patient Orientation: Normal For Age Attachments: Other-See Comments (sling) Transfers Functional [place] Measure 0=Not Assessed/NA 4=Minimal Assistance 1=Total Assistance 5=Supervision or Setup 2=Maximal Assistance 6=Modified [place] 3=Moderate Assistance 7=Complete IndependenceIRFPAI Quality Coding Scale 6 Independent with activity with or without an assistive device 5 Patient requires set up or clean up by helper. Patient completes activity by themselves 4 Supervision or touching assist (CGA). [place] provide cues , steadying assist 3 The helper provides less than half the effort to complete the activity 2 The helper provides more than half the effort to complete the activity 1 Dependent. The helper does all the effort to complete an activity 7 Patient refused to complete or attempt activity 9 The patient did not perform the activity before the current illness or injury 88 Not attempted due to Medical conditions or safety concerns Transfers (B, C, W/C) (FIM): 6 Scootin Rollin Roll Left to Right (QC): 5 Supine to/from Sit: 6 Sit to/from Stand: 6 Sit to Lying (QC): 5 Sit to Stand (QC): 5 Chair/Nia-xa-Bbwqh Xfer(QC): 5 Bed to/from Chair: 6 Car Transfer (QC): 5 Weight Bearing Right Lower Extremity: Right Full Weight Bearing Full Weight Bearing Left UE in a sling; NWB. Gait Training Does the Patient Walk?: Yes Gait (FIM): 6 Distance (FIM): 3=150 ft (150x2) Walk 10 feet (QC): 5 Walk 50 ft with 2 Turns(QC): 5 Walk 150 ft (QC): 5 Walking 10ft/uneven surface-QC: 5 Gait Level of Assist: 6 Gait Persons Needed: 0 Gait Assistive Device: Cane Small Base Quad Wheelchair Training Does the Pt Use a Wheelchair?: No Stair Training Stair Training: Handrails/: 1 handrail Stairs (FIM): 5 #of Steps: 4 1 Step (curb) (QC): 5 4 Steps (QC): 5 Stairs: Pattern: Step to Level of Assist: 5 household exception Balance Picking up an Object (QC): 5 Exercises Supine Ex: Bridging, Ankle pumps, Quad Set, Rolling, Glut sets, Heel Slides, Short Arc Quads, Scooting, Straight leg raise, Hip abd/add Supine Reps: 15 Treatments toilets indep Assessment Current Status: Good Progress PT Short Term Goals Short Term Goals Time Frame: Aug 26, 2017 Transfers (B,C,W/C) (FIM): 5 Gait (FIM): 5 Distance (FIM): 3=150 ft Gait Assistive Device: Cane Small Base Quad PT Group Home Goals Kindergarten Teacher Assistant Goals PT Group Home Goals Time Frame: Sep 04, 2017 Transfers (B,C,W/C) (FIM): 6 Sit to Lying (QC): 6 Lying-Sitting on Side/Bed(QC): 6 Sit to Stand (QC): 6 Rollin Roll Left to Right (QC): 6 Chair/Cvm-dj-Qnfvp Xfer(QC): 6 Car Transfer (QC): 6 Does the Patient Walk: Yes Gait (FIM): 6 Gait distance (FIM): 3=150 ft Walk 10 feet (QC): 6 Walk 10ft-Uneven Surface(QC): 6 Walk 50ft with 2 Turns (QC): 6 Walk 150 ft (QC): 6 Gait Level of Assist: 6 Gait Assistive Device: Cane Small Base Quad Does the Pt use WC or Scooter?: No Stairs (FIM): 5 # of Steps: 4 1 Step (curb) (QC): 6 4 Steps (QC): 6 12 Steps (QC): 88 Picking up an Object (QC): 88 PT Plan Treatment/Plan Treatment Plan: Continue Plan of Care Treatment Plan: Bed Mobility, Education, Functional Activity Cintia, Functional Strength, Group Therapy, Gait, Safety, Therapeutic Exercise, Transfers Treatment Duration: Sep 04, 2017 Frequency: At least 5 of 7 days/Wk (IRF) Estimated Hrs Per Day: 1.5 hours per day Patient and/or Family Agrees t: Yes Safety Risks/Education Patient Education: Gait Training, Transfer Techniques, Steps, Correct Positioning, Safety Issues Teaching Recipient: Patient Teaching Methods: Demonstration, Discussion Response to Teaching: Verbalize Understanding, Return Demonstration, Reinforcement Needed Time/GCodes Time In: 1000 Time Out: 1100 Total Billed Treatment Time: 60 Total Billed Treatment 1,EX20m,FA25m,GT15m G Codes Necessary: ZION Tomlinson POTTERY DECORATOR Sep 01, 2017 11:03
--- NOTE | 2017-09-01 14:09 | Physical Therapy Daily Note ---
PT Daily Note-Current Subjective Pt. feels ready to go home and ok with PM RX. Pain Numeric Pain Scale: 0-No Pain Mental Status Patient Orientation: Normal For Age Attachments: Other-See Comments (sling LUE) Transfers Functional [place] Measure 0=Not Assessed/NA 4=Minimal Assistance 1=Total Assistance 5=Supervision or Setup 2=Maximal Assistance 6=Modified [place] 3=Moderate Assistance 7=Complete IndependenceIRFPAI Quality Coding Scale 6 Independent with activity with or without an assistive device 5 Patient requires set up or clean up by helper. Patient completes activity by themselves 4 Supervision or touching assist (CGA). [place] provide cues , steadying assist 3 The helper provides less than half the effort to complete the activity 2 The helper provides more than half the effort to complete the activity 1 Dependent. The helper does all the effort to complete an activity 7 Patient refused to complete or attempt activity 9 The patient did not perform the activity before the current illness or injury 88 Not attempted due to Medical conditions or safety concerns all TRFs bed , chair and toilet mod I Weight Bearing Right Lower Extremity: Right Full Weight Bearing Full Weight Bearing Left UE in a sling; NWB. Gait Training Gait Assistive Device: Cane Small Base Quad 150ft x 2 slow, no LOB Mod I in room Exercises Standing: Hip Abduction, Hamstring curls, Heel/toe raises, Marching, Mini squats Standing Reps: 12 rested between exercises Assessment Current Status: Good Progress meets goals PT Short Term Goals Short Term Goals Time Frame: Aug 26, 2017 Transfers (B,C,W/C) (FIM): 5 Gait (FIM): 5 Distance (FIM): 3=150 ft Gait Assistive Device: Cane Small Base Quad PT Lap Hand Tool Goals Snf Goals PT Lap Hand Tool Goals Time Frame: Sep 04, 2017 Transfers (B,C,W/C) (FIM): 6 Sit to Lying (QC): 6 Lying-Sitting on Side/Bed(QC): 6 Sit to Stand (QC): 6 Rollin Roll Left to Right (QC): 6 Chair/Dqe-ej-Jzrla Xfer(QC): 6 Car Transfer (QC): 6 Does the Patient Walk: Yes Gait (FIM): 6 Gait distance (FIM): 3=150 ft Walk 10 feet (QC): 6 Walk 10ft-Uneven Surface(QC): 6 Walk 50ft with 2 Turns (QC): 6 Walk 150 ft (QC): 6 Gait Level of Assist: 6 Gait Assistive Device: Cane Small Base Quad Does the Pt use WC or Scooter?: No Stairs (FIM): 5 # of Steps: 4 1 Step (curb) (QC): 6 4 Steps (QC): 6 12 Steps (QC): 88 Picking up an Object (QC): 88 PT Plan Treatment/Plan Treatment Plan: Continue Plan of Care Treatment Plan: Bed Mobility, Education, Functional Activity Cintia, Functional Strength, Group Therapy, Gait, Safety, Therapeutic Exercise, Transfers Treatment Duration: Sep 04, 2017 Frequency: At least 5 of 7 days/Wk (IRF) Estimated Hrs Per Day: 1.5 hours per day Patient and/or Family Agrees t: Yes Safety Risks/Education Patient Education: Gait Training, Transfer Techniques, Correct Positioning, Safety Issues Teaching Recipient: Patient Teaching Methods: Demonstration, Discussion Response to Teaching: Verbalize Understanding, Return Demonstration, Reinforcement Needed Time/GCodes Time In: 1330 Time Out: 1400 Total Billed Treatment Time: 30 Total Billed Treatment 1,GT15m,EX15m G Codes Necessary: ZION Tomlinson JAVA DEVELOPER WITH SECURITY CLEARANCE Sep 01, 2017 14:08
[2017-09-01 17:18] VITALS: BP 114/65
[2017-09-01] MEDS: warFARin 2 MG (COUMADIN) TAB PO SCH (17:21)
[2017-09-02 06:00] VITALS: BP 133/76
[2017-09-02] MEDS: ACETAMINOPHEN 500 MG TAB (TYLENOL) PO SCH (06:05)
[2017-09-02] MEDS: VITAMIN D3 1,000 UNITS (CHOLECALCIFEROL) TABLET PO SCH (06:06)
--- NOTE | 2017-09-02 08:12 | PM & R (SOAP) Progress Note ---
Subjective This was a face to face visit with the patient. Date Seen by Provider: Sep 02, 2017 Time Seen by Provider: 07:40 Subjective/Events-last exam Patient was seen in her room this AM.Appreciate Dr Merchant note and orders. Objective Physician Exam Last Set of Vital Signs Vital Signs Date Time Temp Pulse Resp B/P (MAP) Pulse Ox O2 Delivery O2 Flow Rate FiO2 09/02/17 06:00 97.9 70 17 133/76 (95) 94 Room Air Capillary Refill : Less Than 3 Seconds I&O Intake and Output 09/02/17 00:00 Intake Total 1590 ml Balance 1590 ml Intake Oral 1590 ml # Voids 6 # Bowel Movements 2 General: Alert, Oriented X3, Cooperative, No Acute Distress HEENT: PERRLA, EOMI, Mucous Memb Moist/[place], Other (large left periorbital hematoma) Neck: Supple, No JVD Lungs: Clear to Auscultation Heart: Regular Rate Abdomen: Normal Bowel Sounds, Soft, No Tenderness Extremities: Other (Trace edema pretibial Left arm in sling) Neuro: Other (Strength 4+/5 BUES and RUE Left arm in sling with limited career discovery teacher strength left and tenderness over left elbow) Results Lab Data Laboratory Tests 08/31/17 05:10: Prothrombin Time 30.2H, INR Comment 2.9H 09/01/17 05:18: Prothrombin Time 30.6H, INR Comment 2.9H Assessment/Plan Assessment and Plan Home today with [facility] F/U with Dr Acharya PCP See orders. (1) Humerus head fracture Co-Morbidities that are continuing to impact the rehab process: (include details ) PAIGE JONES MD Sep 02, 2017 08:11
[2017-09-02] MEDS: DOCUSATE SODIUM 100 MG (COLACE) CAP PO SCH (09:17)
[2017-09-02] MEDS: MICONAZOLE 2% POWDER (DESENEX AF) 90 GM TOP SCH (09:19)
[2017-09-02] MEDS: OXYBUTYNIN (DITROPAN) 5 MG TAB PO SCH (09:19)
--- NOTE | 2017-09-02 10:35 | Therapy Team Discharge Summary ---
Therapy Discharge Summary Discharge Recommendations Date of Discharge 09/02/17 Therapy D/C Recommendations: Home w/ Family Support, Occupational Therapy Home Care, Physical Therapy Home Care Physical Therapy This patient has been seen on ARU post acute hospital stay after a fall in which she sustained trauma to her head and a left humerus fx. Prior to this incident, she was indep with all mobility, living alone and driving. Upon admit to this unit, she required mod assist with transfer, walked 75 ft with hemicane with min assist and was only able to go up/down 1 step. Treatment has consisted of functional strength training and balance training to improve her gait, transfers and functional mobility. She has made excellent progress and has achieved all goals. At discharge, she is mod indep with transfers and gait and mod indep on stairs at a household level. She is discharging home and recommend follow up [facility] PT to continue to progress her mobility and safety. DC PT. Occupational Therapy Decreased Activ Tolerance, Decreased UE Strength, Dependent Transfers, Impaired Bed Mobility, Impaired Funct Balance, Impaired I ADL's, Impaired Self-Care Skills, Restricted Funct UE ROM PT Fci Goals Fci Goals PT Favor Maker Goals Time Frame: Sep 04, 2017 Transfers (B,C,W/C) (FIM): 6 (met) Roll Left to Right (QC): 6 Sit to Lying (QC): 6 Lying-Sitting on Side/Bed(QC): 6 Sit to Stand (QC): 6 Chair/Cec-ws-Icesj Xfer(QC): 6 Car Transfer (QC): 6 Does the Patient Walk: Yes Gait (FIM): 6 (met) Gait distance (FIM): 3=150 ft Walk 10 feet (QC): 6 Walk 10ft-Uneven Surface(QC): 6 Walk 50ft with 2 Turns (QC): 6 Walk 150 ft (QC): 6 Gait Level of Assist: 6 Gait Assistive Device: Cane Small Base Quad Does the Pt use WC or Scooter?: No Stairs (FIM): 5 (met) # of Steps: 4 1 Step (curb) (QC): 6 4 Steps (QC): 6 12 Steps (QC): 88 Picking up an Object (QC): 88 OT Fci Goals Fci Goals Time Frame: Sep 02, 2017 Eating (FIM): 6 (met-09/01/2017) Eating (QC): 6 (met-09/01/2017) Oral Hygiene (QC): 5 (-09/01/2017) Grooming(FIM): 5 (09/01/2017) Bathing(FIM): 5 (09/01/2017) Shower/Bathe Self (QC): 5 (09/01/2017) Upper Body Dressing(FIM): 6 (09/01/2017) Upper Body Dressing (QC): 6 (09/01/2017) Lower Body Dressing(FIM): 6 (09/01/2017) Lower Body Dressing (QC): 6 (09/01/2017) On/Off Footwear (QC): 6 (09/01/2017) Toileting(FIM): 6 (09/01/2017) Toileting Hygiene (QC): 6 (09/01/2017) Transfers (B,C,W/C) (FIM): 6 (09/01/2017) Toilet/Commode Transfer(FIM): 6 (09/01/2017) Toilet/Commode Transfer (QC): 6 (09/01/2017) Shower Transfer(FIM): 5 (09/01/2017) Additional Goals: 1-Demonstrate ADL Tasks, 2-Verbalize Understanding, 3- ImproveStrength/Cintia 1=Demonstrate adherence to instructed precautions during ADL tasks. 2=Patient will verbalize/demonstrate understanding of assistive devices/ modifications for ADL. 3=Patient will improve strength/tolerance for activity to enable patient to perform ADL's. PAULINO RAMÍREZ PT Sep 02, 2017 10:35
[2017-09-02 10:59] VITALS: BP 133/76
--- NOTE | 2017-09-02 16:32 | Therapy Team Discharge Summary ---
Therapy Discharge Summary Discharge Recommendations Date of Discharge Sep 02, 2017 at 15:09 Therapy D/C Recommendations: Home w/ Family Support, Occupational Therapy Home Care, Physical Therapy Home Care Occupational Therapy Pt. has been seen by occupational therapy to increase overall strength and independence. Tolerated all treatment well. Pt. is able to return home with mod I. Recommend home health OT to make sure pt. is safe within home setting. Pt. has met all goals. Decreased Activ Tolerance, Decreased UE Strength, Impaired I ADL's, Restricted Funct UE ROM PT Phthalic Acid Purifier Goals Mcfp Goals PT Mcfp Goals Time Frame: Sep 04, 2017 Transfers (B,C,W/C) (FIM): 6 (met) Roll Left to Right (QC): 6 Sit to Lying (QC): 6 Lying-Sitting on Side/Bed(QC): 6 Sit to Stand (QC): 6 Chair/Fcx-fy-Vfhap Xfer(QC): 6 Car Transfer (QC): 6 Does the Patient Walk: Yes Gait (FIM): 6 (met) Gait distance (FIM): 3=150 ft Walk 10 feet (QC): 6 Walk 10ft-Uneven Surface(QC): 6 Walk 50ft with 2 Turns (QC): 6 Walk 150 ft (QC): 6 Gait Level of Assist: 6 Gait Assistive Device: Cane Small Base Quad Does the Pt use WC or Scooter?: No Stairs (FIM): 5 (met) # of Steps: 4 1 Step (curb) (QC): 6 4 Steps (QC): 6 12 Steps (QC): 88 Picking up an Object (QC): 88 OT Phthalic Acid Purifier Goals Phthalic Acid Purifier Goals Time Frame: Sep 02, 2017 Eating (FIM): 6 (met-09/01/2017) Eating (QC): 6 (met-09/01/2017) Oral Hygiene (QC): 5 (met-09/01/2017) Grooming(FIM): 5 (met-09/01/2017) Bathing(FIM): 5 (met-09/01/2017) Shower/Bathe Self (QC): 5 (met-09/01/2017) Upper Body Dressing(FIM): 6 (met-09/01/2017) Upper Body Dressing (QC): 6 (met-09/01/2017) Lower Body Dressing(FIM): 6 (met-09/01/2017) Lower Body Dressing (QC): 6 (met-09/01/2017) On/Off Footwear (QC): 6 (met-09/01/2017) Toileting(FIM): 6 (met-09/01/2017) Toileting Hygiene (QC): 6 (met-09/01/2017) Transfers (B,C,W/C) (FIM): 6 (met-09/01/2017) Toilet/Commode Transfer(FIM): 6 (met-09/01/2017) Toilet/Commode Transfer (QC): 6 (met-09/01/2017) Shower Transfer(FIM): 5 (met-09/01/2017) Additional Goals: 1-Demonstrate ADL Tasks, 2-Verbalize Understanding, 3- ImproveStrength/Cintia 1=Demonstrate adherence to instructed precautions during ADL tasks. 2=Patient will verbalize/demonstrate understanding of assistive devices/ modifications for ADL. 3=Patient will improve strength/tolerance for activity to enable patient to perform ADL's. CURT GILLESPIE OT Sep 02, 2017 16:32
== END 2017-09-02 15:09 | disposition home health service (06) | DRG 561 ==
PROVIDERS: ADMIT Physical Medicine & Rehabilitation; ATTEND Physical Medicine & Rehabilitation
DX: S42.292D Other displaced fracture of upper end of left humerus, subsequent encounter for fracture with routine healing (principal); S00.83XD Contusion of other part of head, subsequent encounter; S00.12XD Contusion of left eyelid and periocular area, subsequent encounter; K21.9 Gastro-esophageal reflux disease without esophagitis; F32.9 Major depressive disorder, single episode, unspecified; N32.81 Overactive bladder; K59.00 Constipation, unspecified; Z79.01 Long term (current) use of anticoagulants; Z86.718 Personal history of other venous thrombosis and embolism; Z86.711 Personal history of pulmonary embolism; W19.XXXD Unspecified fall, subsequent encounter
CPT/HCPCS: 36415; 73060; 85610

== ENCOUNTER → 2017-09-17 | Outpatient (CLI) | payer MEDICARE ==
[~2017-09-17] MED LIST changes: +ACET325C5 PO
--- NOTE | 2017-09-17 15:43 | Diagnostic Imaging Report ---
INDICATION: Humeral head fracture, followup. TECHNIQUE: 2 views of the left humerus CORRELATION STUDY: None FINDINGS: Comminuted humeral head fracture deformity is again demonstrated. Fracture lines have become somewhat blurred and slightly sclerotic suggestive of some interval healing. The overall alignment with impaction and somewhat outward displacement appears stable. Portion of the fracture lines are still visualized. Remainder of the humerus otherwise unremarkable. IMPRESSION: 1. Suggestion of partial interval healing of a comminuted impacted outwardly displaced humeral head fracture. Dictated by: Dictated on workstation # [id number]
== END ==
LOC: RAD 14:57
PROVIDERS: ATTEND Internal Medicine
DX: S42.202A Unspecified fracture of upper end of left humerus, initial encounter for closed fracture (principal)
CPT/HCPCS: 73060

== ENCOUNTER 2017-12-10 11:27 | Outpatient (RCR) | payer MEDICARE ==
[~2017-12-10 11:27] MED LIST changes: +HYDR-4226 PO; -HYDR-757 PO
== END 2017-12-14 13:24 | disposition home or self-care (01) ==
PROVIDERS: ATTEND Internal Medicine
DX: S42.202D Unspecified fracture of upper end of left humerus, subsequent encounter for fracture with routine healing (principal); W19.XXXD Unspecified fall, subsequent encounter

== ENCOUNTER 2018-01-07 10:36 | Outpatient (RCR) | payer MEDICARE | END 2018-01-07 11:19 | disposition home or self-care (01) | PROVIDERS: ATTEND Internal Medicine | DX: S42.202D Unspecified fracture of upper end of left humerus, subsequent encounter for fracture with routine healing (principal); W19.XXXD Unspecified fall, subsequent encounter ==

== ENCOUNTER 2018-05-27 15:05 | Observation (INO) | payer MEDICARE ==
[~2018-05-27] VITALS: Ht 152.4 cm; Wt 101.7 kg
[2018-05-27] MEDS ORDERED: TETANUS,DIPTH,PERTUSS P/F (BOOSTRIX) 0.5 ML VIAL IM ONE (15:30)
--- NOTE | 2018-05-27 15:41 | ED Fall/Injury ---
General Chief Complaint: Trauma-Non Activation Stated Complaint: FALL Nursing Triage Note: PT ARRIVED PER EMS, PT FELL AT [facility] TRIPPED OVER CURB, PT DENIES LOC. PT HAS VERY LARGE HEMATOMA ON FRONT OF FOREHEAD. PT CO OF SOME L WRIST PAIN Source: patient, EMS Exam Limitations: no limitations History of Present Illness Date Seen by Provider: May 27, 2018 Time Seen by Provider: 15:07 Initial Comments This 82-year-old woman was walking into a local restaurant when she misjudged the step and tripped. She struck her face on the concrete sidewalk. There was no loss of consciousness. She denies signs or symptoms of concussion at this time. She is on a blood that her medication for history of blood clots Location Injury Occurred: [facility] Allergies and Home Medications Allergies Coded Allergies: Penicillins (Verified Allergy, Mild, 08/17/17) Home Medications Acetaminophen 325 Mg Capsule, 650 MG PO Q6H Prescribed by: PANTERA BATES on 09/01/17 1024 Cholecalciferol (Vitamin D3) 2,000 Unit Capsule, 2,000 UNIT PO DAILY, (Reported) Citalopram Hydrobromide 20 Mg Tablet, 20 MG PO DAILY, (Reported) Oxybutynin Chloride 10 Mg Tab.er.24, 10 MG PO DAILY, (Reported) Warfarin Sodium 2 Mg Tablet, 5 MG PO DAILY, (Reported) TAKES 2 & 1/2 (2MG) TABLET Patient Home Medication List Home Medication List Reviewed: Yes Review of Systems Review of Systems Constitutional: no symptoms reported Eyes: No Symptoms Reported Ears, Nose, Mouth, Throat: see HPI (abrasions to the face) Respiratory: no symptoms reported Cardiovascular: no symptoms reported Gastrointestinal: no symptoms reported Genitourinary: no symptoms reported Musculoskeletal: see HPI Skin: see HPI Psychiatric/Neurological: No Symptoms Reported Past Tisrqay-Xhaxzg-Kfsjyn Hx Past Med/Social Hx: Reviewed and Corrections made Patient Social History Alcohol Use: Denies Use Recreational Drug Use: No Smoking Status: Never a Smoker Recent Foreign Travel: No Contact w/Someone Who Travel: No Recent Infectious Disease Expo: No Recent Hopitalizations: No Physical Abuse: No Sexual Abuse: No Seasonal Allergies Seasonal Allergies: No Past Medical History Surgeries: Yes (GREEN FIELD FILTER, LTK, RTK, L FOREARM METAL PLATE) Abdominal, Appendectomy, Orthopedic Respiratory: Yes Pulmonary Embolism Cardiac: Yes Deep Vein Thrombosis Neurological: No Genitourinary: No Gastrointestinal: Yes Gastroesophageal Reflux, Diverticulosis Musculoskeletal: Yes Arthritis Endocrine: No HEENT: Yes Cataract Hearing Impairment: Hard of Hearing Cancer: No Psychosocial: Yes Anxiety, Depression Integumentary: No Blood Disorders: Yes (DVT/PE) Family Medical History Cardiovascular disease G8 BROTHER Hypertension G8 BROTHER Myocardial infarction 19 MOTHER Respiratory disorder 19 FATHER G8 BROTHER Physical Exam Vital Signs Vital Signs - First Documented 05/27/18 15:05 Temp 97.1 Pulse 82 Resp 18 B/P (MAP) 191/91 (124) Pulse Ox 99 Capillary Refill : Less Than 3 Seconds Height, Weight, BMI Height: 5'0.00" Weight: 222lbs. 6.0oz. 100.260664ha; 44.6 BMI Method:Stated General Appearance: WD/WN, no apparent distress HEENT: PERRL/EOMI, TMs normal, other (large hematoma above the left brow. 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, no motor/sensory deficits, alert, normal mood/affect, oriented x 3 Skin: warm/dry, ecchymosis [place] Coma Score Best Eye Response: (4) Open Spontaneously Best Verbal Response: (5) Oriented Best Motor Response: (6) Obeys Commands [place] Total: 15 Progress/Results/Core Measures Results/Orders Lab Results Laboratory Tests Test 05/27/18 16:34 Range/Units White Blood Count 5.5 4.3-11.0 10^3/uL Red Blood Count 4.21 L 4.35-5.85 10^6/uL Hemoglobin 13.7 11.5-16.0 G/DL Hematocrit 42 35-52 % Mean Corpuscular Volume 99 80-99 FL Mean Corpuscular Hemoglobin 33 25-34 PG Mean Corpuscular Hemoglobin Concent 33 32-36 G/DL Red Cell Distribution Width 14.2 10.0-14.5 % Platelet Count 193 130-400 10^3/uL Mean Platelet Volume 9.7 7.4-10.4 FL Prothrombin Time 23.4 H 12.2-14.7 SEC INR Comment 2.1 H 0.8-1.4 Sodium Level 140 135-145 MMOL/L Potassium Level 4.0 3.6-5.0 MMOL/L Chloride Level 106 98-107 MMOL/L Carbon Dioxide Level 24 21-32 MMOL/L Anion Gap 10 5-14 MMOL/L Blood Urea Nitrogen 20 H 7-18 MG/DL Creatinine 1.08 0.60-1.30 MG/DL Estimat Glomerular Filtration Rate 49 BUN/Creatinine Ratio 19 Glucose Level 91 70-105 MG/DL Calcium Level 9.8 8.5-10.1 MG/DL My Orders Orders - NICOLLE MEJIAS MD Ct Head/Face/Cervical Wo (05/27/18 15:17) Dipht,Pertuss(Acell),Tet Adult (Boostrix (05/27/18 15:30) Wrist, Left, 3 Views Or More (05/27/18 15:35) Hand, Left, 3 Views (05/27/18 15:35) Basic Metabolic Panel (05/27/18 15:41) Cbc No Diff (05/27/18 15:41) Protime With Inr (05/27/18 15:41) Knee, Left, 3 Views (05/27/18 15:47) Ondansetron Injection (Zofran Injectio (05/27/18 16:30) Ondansetron Injection (Zofran Injectio (05/27/18 16:21) Fentanyl Injection (Sublimaze Injection (05/27/18 17:00) Ua Culture If Indicated (05/27/18 16:53) Promethazine Injection (Phenergan Injec (05/27/18 17:45) Famotidine Injection (Pepcid Injection) (05/27/18 17:45) Medications Given in ED Current Medications Medications Dose Ordered Sig/Ben Route Start Time Stop Time Status Last Admin Dose Admin Diphtheria/ Tetanus/Acell Pertussis 0.5 ml ONCE ONCE IM 05/27/18 15:30 05/27/18 15:31 DC 05/27/18 15:39 0.5 ML Famotidine 20 mg ONCE ONCE IVP 05/27/18 17:45 05/27/18 17:46 DC 05/27/18 17:44 20 MG Fentanyl Citrate 25 mcg ONCE ONCE IVP 05/27/18 17:00 05/27/18 17:01 DC 05/27/18 16:58 25 MCG Ondansetron HCl 8 mg ONCE ONCE IVP 05/27/18 16:30 05/27/18 16:31 DC 05/27/18 16:26 8 MG Promethazine HCl 6.25 mg ONCE ONCE IVP 05/27/18 17:45 05/27/18 17:46 DC 05/27/18 17:44 6.25 MG Vital Signs/I&O 05/27/18 15:05 Temp 97.1 Pulse 82 Resp 18 B/P (MAP) 191/91 (124) Pulse Ox 99 Blood Pressure Mean: 124 Progress Progress Note : Progress Note Patient was assessed promptly after arrival. She was found to have a large hematoma on the scalp with abrasions. Abrasions were dressed with antibiotic ointment. A Coban and dressing was applied over the hematoma to provide compression. Boostrix tetanus booster was administered. Patient had swelling and ecchymosis of the left wrist and hand. X-rays were performed and revealed a radial styloid fracture. CT of the head, face and C-spine was obtained. No intracranial hemorrhages or fractures were identified. After returning from CT , patient developed intense nausea with gagging. Her mentation was also dulled although still alert and oriented and answering questions appropriately. She states any time she lies flat she gets nauseated due to hiatal hernia. Pain in the head and wrist was also escalating. She was given Zofran 8 mg and fentanyl 25 g. Nausea persisted. Phenergan 6.25 mg was given for refractory nausea. Left wrist was placed in a Colles' splint. Patient sees Dr. Montes in can follow-up with him as an outpatient for treatment of the fracture. While in CT , patient also complained of left knee pain. This was imaged. Dr. Luciano presented to the emergency room to assess the patient. We determined she should be admitted for observation given her anticoagulation and her symptoms of pain and nausea. Dr. Luciano would like a CT scan performed at the 12 hour pantera. He requested consultation with Dr. Dunn and Dr. Ocampo. Diagnostic Imaging Diagonstic Imaging: CT Plain Films/CT/US/NM/MRI: facial bones, c-spine, head Comments CT head, face and C-spine viewed by me and report reviewed. See report below: NAME: GAYATRI SUNG REC#: [id number] PT STATUS: REG ER : 01/17/1985 PHYSICIAN: NICOLLE MEJIAS MD ADMIT DATE: 05/27/18/ER Signed Date of Exam:05/27/18 CHEST PA/LAT (2 VIEW) INDICATION: Weakness asthma chest pain COMPARISON: 07/11/2016 FINDINGS: Frontal and lateral views the chest demonstrate clear lungs bilaterally. The heart size is normal. There is no pneumothorax. Osseous structures are normal. IMPRESSION: No acute findings. Normal chest. Dictated by: Dictated on workstation # [id number] Dict: 05/27/18 1503 Trans: 05/27/18 1503 [facility] [id number] Interpreted by: JESSICA ZEPEDA Electronically signed by: JESSICA ZEPEDA 05/27/18 1503 Departure Communication (Admissions) Time/Spoke to Admitting Phy: 17:10 Dr. Luciano 17:50 Dr. Dunn 18:10 Dr. Ocampo Impression Primary Impression: Closed head injury Qualified Codes: S09.90XA - Unspecified injury of head, initial encounter Additional Impressions: Anticoagulated Facial hematoma Qualified Codes: S00.83XA - Contusion of other part of head, initial encounter Nausea Radial styloid fracture Qualified Codes: S52.515A - Nondisplaced fracture of left radial styloid process, initial encounter for closed fracture Fall on same level from tripping as cause of accidental injury Disposition: ADMITTED INPATIENT Condition: Stable Admissions Decision to Admit Reason: Admit from ER (Trauma) Decision to Admit/Date: May 27, 2018 Time/Decision to Admit Time: 17:10 Departure-Patient Inst. Referrals: PANTERA BATES MD (PCP/Family) Primary Care Physician Copy Copies To 1: PANTERA BATES MD, JOSHUA T MD May 27, 2018 15:41
--- NOTE | 2018-05-27 16:01 | Diagnostic Imaging Report ---
PROCEDURE: CT head, face, and cervical spine without contrast. TECHNIQUE: Multiple contiguous axial images were obtained through the head, neck, and facial bones without the use of intravenous contrast. Sagittal and coronal reformations through the cervical spine and facial bones were also performed. INDICATION: Fall. Correlation is made with prior exam from 08/17/2017. CT head: FINDINGS: There is a large hematoma in the left frontal scalp. Ventricles and sulci appear to be stable in appearance since prior study. Moderate periventricular hypodensity is noted consistent with senescent change. There is no midline shift. No acute intra-axial or extra-axial hemorrhage is detected. Cisterns are patent. No depressed calvarial fracture is seen. IMPRESSION: 1. Large left frontal scalp hematoma. 2. No acute intracranial process is detected. CT cervical spine: FINDINGS: Curvature and alignment of the cervical spine is normal. There is multilevel degenerative disc disease, greatest at the C5-C6 and C6-C7 levels with disc space narrowing and marginal spurring. There is multilevel facet arthropathy. No fractures are identified. The prevertebral tissues are within normal limits. The odontoid is intact. IMPRESSION: No acute bony abnormality is detected. CT face: FINDINGS: The mandible is intact. Zygomatic arches are intact. Maxillary sinus corral, nasal bones, and orbital corral appear to be intact. Frontal sinus is unremarkable. There is a large hematoma in the left frontal scalp. Mastoids are well aerated. Paranasal sinuses are clear apart from trace fluid in the sphenoid as well as minimal mucosal thickening of the ethmoids. IMPRESSION: Large left frontal scalp hematoma. No facial bone fracture is identified. Dictated by: Dictated on workstation # [id number]
[2018-05-27] MEDS ORDERED: ONDANSETRON 4 MG/2 ML (SDV) Z0FRAN ONE (16:21)
--- NOTE | 2018-05-27 16:21 | Diagnostic Imaging Report ---
INDICATION: Left knee injury. COMPARISON: None. FINDINGS: Three views of the left knee demonstrate well-seated arthroplasty without fracture, dislocation, or loosening. There is no joint effusion. No osseous lesion. IMPRESSION: No fracture or dislocation. Dictated by: Dictated on workstation # [id number]
--- NOTE | 2018-05-27 16:21 | Diagnostic Imaging Report ---
INDICATION: Left wrist injury. COMPARISON: None. FINDINGS: Three views of the left wrist demonstrate nondisplaced radial styloid fracture. Diffuse osteopenia is present. There are [id number]-[id number]-[id number] degenerative changes throughout the articular surface. The ulna is intact. IMPRESSION: Nondisplaced radial styloid fracture. Dictated by: Dictated on workstation # [id number]
--- NOTE | 2018-05-27 16:27 | Diagnostic Imaging Report ---
INDICATION: Left hand injury. COMPARISON: None. FINDINGS: Three views of the left hand demonstrate nondisplaced radial styloid fracture. Remainder of the hand and wrist is otherwise intact. Mild degenerative changes are present. There is no bony erosion. No foreign body seen. IMPRESSION: Nondisplaced radial styloid fracture. Dictated by: Dictated on workstation # [id number]
[2018-05-27] MEDS ORDERED: ONDANSETRON 4 MG/2 ML (SDV) Z0FRAN IVP ONE (16:30)
--- NOTE | 2018-05-27 16:37 | NUR ---
PT RESTING IN BED FEELING BETTER AFTER ZOFRAN
[2018-05-27 16:43] LABS: HEMOGLOBIN 13.7 G/DL (11.5-16.0); MEAN PLATELET VOLUME 9.7 FL (7.4-10.4); RED CELL DISTRIBUTION WIDTH 14.2 % (10.0-14.5); WHITE BLOOD COUNT 5.5 10^3/uL (4.3-11.0)
--- NOTE | 2018-05-27 16:53 | NUR ---
PT NOW FEELING WORSE DR NOTIFIED
[2018-05-27 16:57] LABS: CALCIUM 9.8 MG/DL (8.5-10.1); CREATININE SERUM 1.08 MG/DL (0.60-1.30)
[2018-05-27 16:58] LABS: INR 2.1 (0.8-1.4); PROTHROMBIN TIME PATIENT 23.4 SEC (12.2-14.7)
[2018-05-27] MEDS ORDERED: fentaNYL INJECTION 100 MCG/2 ML AMP IVP ONE (17:00)
[2018-05-27] MEDS ORDERED: PROMETHAZINE INJ 25 MG/ML (PHENERGAN) AMP IVP ONE (17:45)
[2018-05-27] MEDS ORDERED: FAMOTIDINE 20MG/2ML IV (PEPCID) IVP ONE (17:45)
--- NOTE | 2018-05-27 17:48 | History & Physical-Surgical ---
History of Present Illness History of Present Illness Reason for visit/HPI CC: fall seen and evaluated in ed patient is an 82 year old female who missed a step and fell face down on sidewalk at restaurant. patient denies loc. had large hematoma on forehead and abrasion to forehead and nose. She is on blood thinners. She is having some nausea after CT scans, which she states that she has nausea after laying down due to hiatal hernia. Left wrist pain with swelling. Hurts to move. Moderate headache at this time. Patient on warfarin for history of blood clots. GCS 15. head face cspine ct no acute fx, large frontal scalp hematoma left knee no fx left wrist nondisplaced radial styloid fx Date of Admission Date Seen by a Provider: May 27, 2018 Time Seen by a Provider: 17:16 I consulted on this patient on 05/27/18 17:16 Attending Physician Admitting Physician Yadi Acharya MD Consult Allergies and Home Medications Allergies Coded Allergies: Penicillins (Verified Allergy, Mild, 08/17/17) Home Medications Acetaminophen 325 Mg Capsule, 650 MG PO Q6H Prescribed by: YADI ACHARYA on 09/01/17 1024 Cholecalciferol (Vitamin D3) 2,000 Unit Capsule, 2,000 UNIT PO DAILY, (Reported) Citalopram Hydrobromide 20 Mg Tablet, 20 MG PO DAILY, (Reported) Oxybutynin Chloride 10 Mg Tab.er.24, 10 MG PO DAILY, (Reported) Warfarin Sodium 2 Mg Tablet, 5 MG PO DAILY, (Reported) TAKES 2 & 1/2 (2MG) TABLET Patient Home Medication List Home Medication List Reviewed: Yes Past Imarxdu-Dygepk-Ckkovu Hx Patient Social History Alcohol Use: Denies Use Recreational Drug Use: No Smoking Status: Never a Smoker Recent Foreign Travel: No Contact w/Someone Who Travel: No Recent Infectious Disease Expo: No Recent Hopitalizations: No Seasonal Allergies Seasonal Allergies: No Surgeries History of Surgeries: Yes (GREEN FIELD FILTER, LTK, RTK, L FOREARM METAL PLATE) Surgeries: Abdominal, Appendectomy, Orthopedic Respiratory History of Respiratory Disorde: No Cardiovascular History of Cardiac Disorders: Yes Cardiac Disorders: Deep Vein Thrombosis Neurological History of Neurological Disord: No Genitourinary History of Genitourinary Disor: No Gastrointestinal History of Gastrointestinal Di: Yes Gastrointestinal Disorders: Gastroesophageal Reflux, Diverticulosis Musculoskeletal History of Musculoskeletal Dis: Yes Musculoskeletal Disorders: Arthritis Endocrine History of Endocrine Disorders: No HEENT History of HEENT Disorders: Yes HEENT Disorders: Cataract Hearing Impairment: Hard of Hearing Cancer History of Cancer: No Psychosocial History of Psychiatric Problem: Yes Behavioral Health Disorders: Anxiety, Depression Integumentary History of Skin or Integumenta: No Blood Transfusions History of Blood Disorders: Yes (DVT/PE) Family Medical History Significant Family History: No Pertinent Family Hx Family Medial History: Cardiovascular disease G8 BROTHER Hypertension G8 BROTHER Myocardial infarction 19 MOTHER Respiratory disorder 19 FATHER G8 BROTHER Review of Systems Constitutional: no symptoms reported EENTM: see HPI Respiratory: no symptoms reported Cardiovascular: no symptoms reported Gastrointestinal: no symptoms reported Genitourinary: no symptoms reported Musculoskeletal: no symptoms reported Skin: see HPI Psychiatric/Neurological: No Symptoms Reported Physical Exam Vital Signs Vital Signs - First Documented 05/27/18 15:05 Temp 97.1 Pulse 82 Resp 18 B/P (MAP) 191/91 (124) Pulse Ox 99 Capillary Refill : Less Than 3 Seconds Height, Weight, BMI Height: 5'0.00" Weight: 222lbs. 6.0oz. 100.232170hk; 44.6 BMI Method:Stated General Appearance: No Apparent Distress (sitting up in bed) HEENT: PERRL/EOMI, Other (forhead hematoma and abrasions to forhead and bridge of nose) Neck: Full Range of Motion, Normal Inspection, Non Tender, Supple Respiratory: Chest Non Tender, No Accessory Muscle Use, No Respiratory Distress Cardiovascular: Regular Rate, Rhythm Gastrointestinal: Normal Bowel Sounds, Non Tender, Soft Rectal: Deferred Back: Normal Inspection, No CVA Tenderness, No Vertebral Tenderness Extremity: Swelling (left wrist, tender and echymosis) Neurologic/Psychiatric: Alert, Oriented x3, No Motor/Sensory Deficits, Normal 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, 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 Norm as Tested Skin: Normal Color (abrasions to forehead and nose, left wrist echymosis), Warm /Dry Lymphatic: No Adenopathy Data Review Labs Laboratory Tests 05/27/18 16:34: White Blood Count 5.5, Red Blood Count 4.21L, Hemoglobin 13.7, Hematocrit 42, Mean Corpuscular Volume 99, Mean Corpuscular Hemoglobin 33, Mean Corpuscular Hemoglobin Concent 33, Red Cell Distribution Width 14.2, Platelet Count 193, Mean Platelet Volume 9.7, Prothrombin Time 23.4H, INR Comment 2.1H, Sodium Level 140, Potassium Level 4.0, Chloride Level 106, Carbon Dioxide Level 24, Anion Gap 10, Blood Urea Nitrogen 20H, Creatinine 1.08, Estimat Glomerular Filtration Rate 49, BUN/Creatinine Ratio 19, Glucose Level 91, Calcium Level 9.8 Assessment/Plan Assessment/Plan Admission Diagonsis fall tbi left nondisplaced radial styloid fx abrasions to face custodial anticoagulation for history of blood clots nausea patient to be admitted to ICU, will repeat head ct in about 12 hours if any worsening of condition will do at that time has nausea which patient attributed to laying flat which she can't do on regular basis without having nausea will monitor pressure dressing on hematoma neuro checks Dr. Zuniga will place splint and patient will need outpatient ortho follow up Dr. Zuniga cleared cspine in ED Consult medicine and Dr. Ocampo for ICU management Admission Status: Observation Assessment/Plan fall tbi left nondisplaced radial styloid fx abrasions to face custodial anticoagulation for history of blood clots nausea patient to be admitted to ICU, will repeat head ct in about 12 hours if any worsening of condition will do at that time has nausea which patient attributed to laying flat which she can't do on regular basis without having nausea will monitor pressure dressing on hematoma neuro checks Dr. Zuniga will place splint and patient will need outpatient ortho follow up Dr. Zuniga cleared tesfayeine in ED Consult medicine and Dr. Ocampo for ICU management MUMTAZ PATEL DO May 27, 2018 17:48
--- NOTE | 2018-05-27 18:00 | NUR ---
ASSUMED CARE OF PT @ THIS TIME.
--- NOTE | 2018-05-27 19:00 | NUR ---
Assumed care of this patient at this time. Report from Stefan GARNER. Patient arrived to ICU room 8 via stretcher at 1845 as reported by day shift RN. Patient alert/oriented. Niece at the bedside.
[2018-05-27 19:30] VITALS: BP 148/68
[2018-05-27] MEDS ORDERED: PROMETHAZINE INJ 25 MG/ML (PHENERGAN) AMP IV PRN (19:45)
[2018-05-27 20:00] VITALS: BP 110/46
[2018-05-27 21:00] VITALS: BP 127/55
[2018-05-27 22:00] VITALS: BP 119/53
[2018-05-27 23:00] VITALS: BP 126/55
[2018-05-28] VITALS (14 sets, daily range): BP systolic 107–151; BP diastolic 49–77
[2018-05-28 02:33] LABS: BILIRUBIN,URINE NEGATIVE (NEGATIVE); CLARITY,URINE SLIGHTLY CLOUDY; COLOR,URINE YELLOW; GLUCOSE, URINE (UA) NEGATIVE (NEGATIVE); KETONES,URINE NEGATIVE (NEGATIVE); LEUKOCYTE ESTERASE ,URINE 1+ (NEGATIVE); NITRITE,URINE POSITIVE (NEGATIVE); PH,URINE 6 (5-9); PROTEIN,URINE NEGATIVE (NEGATIVE); UROBILINOGEN,URINE NORMAL (NORMAL)
[2018-05-28 02:52] LABS: BACTERIA,URINE LARGE /HPF; SQUAMOUS EPITHELIAL CELL,UR 0-2 /HPF
[2018-05-28 03:27] LABS: BASOPHILS % (AUTO) 0 % (0-10); EOSINOPHILS # (AUTO) 0.1 10^3/uL (0.0-0.3); EOSINOPHILS % (AUTO) 1 % (0-10); HEMATOCRIT 35 % (35-52); HEMOGLOBIN 11.4 G/DL (11.5-16.0); LYMPHOCYTES % (AUTO) 20 % (12-44); MEAN CORPUSCULAR HEMOGLOBIN 33 PG (25-34); MEAN CORPUSCULAR HGB CONC 33 G/DL (32-36); MEAN CORPUSCULAR VOLUME 100 FL (80-99); MEAN PLATELET VOLUME 9.8 FL (7.4-10.4); MONOCYTES # (AUTO) 0.6 X 10^3 (0.0-1.0); MONOCYTES % (AUTO) 12 % (0-12); NEUTROPHILS # (AUTO) 3.3 X 10^3 (1.8-7.8); NEUTROPHILS % (AUTO) 67 % (42-75); PLATELET COUNT 173 10^3/uL (130-400); RED CELL DISTRIBUTION WIDTH 14.2 % (10.0-14.5)
[2018-05-28 03:50] LABS: CALCIUM 8.7 MG/DL (8.5-10.1); CREATININE SERUM 1.02 MG/DL (0.60-1.30); MAGNESIUM 1.8 MG/DL (1.8-2.4); POTASSIUM 4.3 MMOL/L (3.6-5.0)
[2018-05-28] MEDS: fentaNYL INJECTION 100 MCG/2 ML AMP IV PRN ×2 (05:43→09:01)
[2018-05-28] MEDS: ONDANSETRON 4 MG/2 ML (SDV) Z0FRAN IV PRN ×2 (05:43→09:00)
--- NOTE | 2018-05-28 05:49 | Pulmonary Consultation ---
History of Present Illness History of Present Illness Date of Consultation 05/28/18 05:43 Time Seen by Provider: 05:43 Date of Admission History of Present Illness 82yo with hx of DVT and currently fully anticoagulated presented to ED after falling at [employer] striking face on concrete. Pt denies LOC. She was found to have a very large hematoma on forehead and bilateral black eyes. Pt denies SOB. No prior episodes like this. SHe does not use a gutiérrez or walker. I am consulted for ICU management. Allergies and Home Medications Allergies Coded Allergies: Penicillins (Verified Allergy, Mild, Pt has received Ceftriaxone in the past w/o issue, 05/28/18) Home Medications Cholecalciferol (Vitamin D3) 2,000 Unit Capsule, 2,000 UNIT PO DAILY, (Reported) Citalopram Hydrobromide 20 Mg Tablet, 20 MG PO DAILY, (Reported) Oxybutynin Chloride 10 Mg Tab.er.24, 10 MG PO DAILY, (Reported) Warfarin Sodium 2 Mg Tablet, 5 MG PO 1800, (Reported) TAKES 2 & 1/2 (2MG) TABLET Past Kiblfwv-Pedigf-Dauzlb Hx Past Med/Social Hx: Reviewed and Corrections made Patient Social History Alcohol Use: Denies Use Recreational Drug Use: No Smoking Status: Never a Smoker Recent Foreign Travel: No Contact w/Someone Who Travel: No Recent Infectious Disease Expo: No Recent Hopitalizations: No Physical Abuse: No Sexual Abuse: No Seasonal Allergies Seasonal Allergies: No Past Medical History Surgeries: Yes (GREEN FIELD FILTER, LTK, RTK, L FOREARM METAL PLATE) Abdominal, Appendectomy, Orthopedic Respiratory: Yes Pulmonary Embolism Cardiac: Yes Deep Vein Thrombosis Neurological: No : No Genitourinary: No Gastrointestinal: Yes Gastroesophageal Reflux, Diverticulosis Musculoskeletal: Yes Arthritis Endocrine: No HEENT: Yes Cataract Hearing Impairment: Hard of Hearing Cancer: No Psychosocial: Yes Anxiety, Depression Integumentary: No Blood Disorders: Yes (DVT/PE) Family Medical History Cardiovascular disease G8 BROTHER Hypertension G8 BROTHER Myocardial infarction 19 MOTHER Respiratory disorder 19 FATHER G8 BROTHER No Pertinent Family Hx Review of Systems Time Seen by Provider: 08:24 Constitutional: Weakness, Malaise; No: Fever, Chills, Sweats, Other Eyes: No: Pain, Vision change, Conjunctivae inflammation, Eyelid inflammation, Other, Redness ENT: No: Ear pain, Ear discharge, Nose pain, Nose discharge, Nose congestion, Mouth pain, Mouth swelling, Throat pain, Throat swelling, Other Respiratory: No: Cough, Dry, Shortness of breath, SOB with excertion, Wheezing , Hemoptysis, Pleuritic Pain, Sputum, Wheezing, Other Cardiovascular: No: Chest Pain, Palpitations, Orthopnea, Paroxysmal Noc. Dyspnea, Edema, Lt Headedness, Other Gastrointestinal: No: Nausea, Vomiting, Abdominal Pain, Diarrhea, Constipation , Melena, Hematochezia, Other Sepsis Event Evaluation Height, Weight, BMI Height: 5'0.00" Weight: 227lbs. 8.0oz. 103.275005sy; 44.4 BMI Method:Stated Exam Exam Vital Signs Date Time Temp Pulse Resp B/P (MAP) Pulse Ox O2 Delivery O2 Flow Rate FiO2 05/28/18 05:00 70 24 141/67 (91) 96 Nasal Cannula 2.00 05/28/18 04:00 67 21 132/65 (87) 96 Nasal Cannula 2.00 05/28/18 03:50 97 Nasal Cannula 2.00 05/28/18 03:13 64 25 119/62 (81) 99 Nasal Cannula 2.00 05/28/18 02:00 65 21 138/58 (84) 99 Nasal Cannula 2.00 05/28/18 01:00 68 22 115/63 (80) 97 Nasal Cannula 2.00 05/28/18 00:00 81 26 131/49 (76) 97 Nasal Cannula 2.00 05/27/18 23:20 97 Nasal Cannula 2.00 05/27/18 23:20 98.1 Nasal Cannula 2.00 05/27/18 23:00 73 23 126/55 (78) 98 Nasal Cannula 2.00 05/27/18 22:00 72 24 119/53 (75) 98 05/27/18 21:30 96 Nasal Cannula 2.00 05/27/18 21:00 75 25 127/55 (79) 99 05/27/18 20:00 77 16 110/46 (67) 93 05/27/18 19:45 96 Room Air 05/27/18 19:30 97.9 68 23 148/68 (94) 96 Room Air 05/27/18 19:00 71 05/27/18 18:30 97.1 80 18 170/75 (106) 94 Room Air 05/27/18 15:05 97.1 82 18 191/91 (252) 99 I & O 05/28/18 07:00 Intake Total 150 ml Output Total 620 ml Balance -470 ml Height & Weight Height: 5'0.00" Weight: 227lbs. 8.0oz. 103.445849ak; 44.4 BMI Method:Stated General Appearance: No Apparent Distress (sitting up in bed) HEENT: PERRL/EOMI, Other (forhead hematoma and abrasions to forhead and bridge of nose) Neck: Full Range of Motion, Normal Inspection, Non Tender, Supple Respiratory: Chest Non Tender, No Accessory Muscle Use, No Respiratory Distress Cardiovascular: Regular Rate, Rhythm Capillary Refill: Less Than 3 Seconds Gastrointestinal: normal bowel sounds, non tender, soft Extremity: Swelling (left wrist, tender and echymosis) Neurologic/Psychiatric: Alert, Oriented x3, No Motor/Sensory Deficits, Normal Mood/Affect, supervisor fishing II-XII Norm as Tested Skin: Normal Color (abrasions to forehead and nose, left wrist echymosis), Warm /Dry Lymphatic: No Adenopathy Results Lab Laboratory Tests 05/27/18 16:34 05/28/18 03:11 Assessment/Plan Assessment/Plan S/P fall Left nondisplaced radial styloid fx HX of DVT -Pt is fully anticoagulated Nausea Once pt is transferred out of ICU I will sign off. Please call with any questions or concerns. HARRY ONEILL DO May 28, 2018 05:49
[2018-05-28] MEDS ORDERED: POTASSIUM CL 10MEQ/50ML IVPB 50 ML IV SCH (06:00)
[2018-05-28] MEDS ORDERED: KCL 20 MEQ TAB (K-DUR) PO SCH (06:00)
[2018-05-28] MEDS ORDERED: MAGNESIUM 1 GM/100 ML IVPB 100 ML IV SCH (06:00)
--- NOTE | 2018-05-28 06:45 | NUR ---
Dr Ocampo notified of patient UA results with culture pending. Order for Rocephin 1gm q 24hrs initiated.
[2018-05-28] MEDS ORDERED: FLU QUADRIvalent (5+ YOA) 2018-2019 (AFLURIA) 0.5 ML IM ONE (07:00)
--- NOTE | 2018-05-28 08:11 | Diagnostic Imaging Report ---
PROCEDURE: CT head without contrast. TECHNIQUE: Multiple contiguous axial images were obtained through the brain without the use of intravenous contrast. INDICATION: Followup frontal scalp hematoma. Correlation is made with prior head CT from one day earlier. The left frontal scalp hematoma does appear to be mildly smaller. The ventricles and sulci are stable in appearance. No sulcal effacement or midline shift is seen. There is moderate periventricular hypodensity consistent with senescent change. No acute intra-axial or extra-axial hemorrhage is detected. Cisterns are patent. Visualized paranasal sinuses are clear. IMPRESSION: Slight decrease in size of left frontal scalp hematoma. No acute intracranial process is detected. Dictated by: Dictated on workstation # [id number]
--- NOTE | 2018-05-28 08:54 | Consultation-Hospitalist ---
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 She was at [employer] around 3pm and misjudged the step and fell trying to walking in the building. SHe denies any dizziness or syncope that led to the fall. In the ER a CT head was done and was negative for ICH but she became very nauseated did not feel well so was admitted to trauma service for obs. I am consulted for medical management. Source: patient Exam Limitations: no limitations Date Seen 05/28/18 Attending Physician Rishabh Luciano DO PCP Garrett Acharya MD Referring Physician Date of Admission May 27, 2018 at 17:48 Home Medications & Allergies Home Medications Reviewed patient Home Medication Reconciliation performed by pharmacy medication reconciliations electronics technician apprentice and/or nursing. Patients Allergies have been reviewed. Allergies Allergies Coded Allergies Penicillins (Verified Allergy, Mild, Pt has received Ceftriaxone in the past w /o issue, 05/28/18) Past Aogvjpv-Ysjtdq-Jvhjjl Hx Past Med/Social Hx: Reviewed Nursing Past Med/Soc Hx, Reviewed and Corrections made Patient Social History Alcohol Use: Denies Use Recreational Drug Use: No Smoking Status: Never a Smoker Recent Foreign Travel: No Contact w/other who traveled: No Recent Hopitalizations: No Recent Infectious Disease Expo: No Seasonal Allergies Seasonal Allergies: No Past Medical History Surgeries: Abdominal, Appendectomy, Eye Surgery, Orthopedic Respiratory: Pulmonary Embolism Cardiac: Deep Vein Thrombosis : No Gastrointestinal: Gastroesophageal Reflux, Diverticulosis Musculoskeletal: Arthritis HEENT: Cataract Hearing Impairment: Hard of Hearing Psychosocial: Anxiety, Depression History of Blood Disorders: Yes (DVT/PE) Family History Reviewed Nursing Family Hx Cardiovascular disease G8 BROTHER Hypertension G8 BROTHER Myocardial infarction 19 MOTHER Respiratory disorder 19 FATHER G8 BROTHER No Pertinent Family Hx Review of Systems Constitutional: No chills, No fever EENTM: No blurred vision, No double vision, No nose congestion, No throat pain Respiratory: No cough, No dyspnea on exertion, No short of breath Cardiovascular: No chest pain, No edema, No palpitations Gastrointestinal: No abdominal pain, No constipation, No diarrhea; nausea; No vomiting Genitourinary: No dysuria, No frequency Musculoskeletal: No joint pain, No muscle pain Skin: No lesions, No rash Psychiatric/Neurological: Headache; Denies Numbness, Denies Tingling Physical Exam Physical Exam Vital Signs Vital Signs - First Documented 05/27/18 05/27/18 05/27/18 15:05 18:30 21:30 Temp 97.1 Pulse 82 Resp 18 B/P (MAP) 191/91 (124) Pulse Ox 99 O2 Delivery Room Air O2 Flow Rate 2.00 Capillary Refill : Less Than 3 SecondsLess Than 3 Seconds Height, Weight, BMI Height: 5'0.00" Weight: 230lbs. 0.6oz. 104.368365sy; 44.4 BMI Method:Stated General Appearance: No Apparent Distress, Obese HEENT: Moist Mucous Membranes; No Scleral Icterus (L), No Scleral Icterus (R); Other (forehead hematoma wrapped in pressure dressing) Neck: Normal Inspection Respiratory: Lungs Clear, No Accessory Muscle Use, No Respiratory Distress Cardiovascular: Regular Rate, Rhythm, No Murmur Gastrointestinal: Normal Bowel Sounds, Non Tender, Soft Rectal: Deferred Back: Normal Inspection, No CVA Tenderness, No Vertebral Tenderness Extremity: No Calf Tenderness, No Pedal Edema, Swelling (left wrist in splint) Neurologic/Psychiatric: Alert, Oriented x3, Normal Mood/Affect Skin: Normal Color, Warm/Dry Lymphatic: No Adenopathy Results Results/Procedures Labs Laboratory Tests 05/27/18 16:34 05/28/18 03:11 Patient resulted labs reviewed. Imaging: Reviewed Imaging Report Assessment/Plan Assessment and Plan Assess & Plan/Chief Complaint Frontal hematoma Diagnosis/Problems Diagnosis/Problems (1) Fall on same level from tripping as cause of accidental injury Status: Acute Assessment & Plan: Admitted to trauma services Repeat CT head negative (2) Radial styloid fracture Assessment & Plan: Follow up with ortho as an outpatient Qualifiers: Encounter type: initial encounter Fracture type: closed Fracture alignment: nondisplaced Laterality: left Qualified Codes: S52.515A - Nondisplaced fracture of left radial styloid process, initial encounter for closed fracture (3) Facial hematoma Status: Acute Assessment & Plan: Pressure dressing in place Qualifiers: Encounter type: initial encounter Qualified Codes: S00.83XA - Contusion of other part of head, initial encounter (4) Anticoagulated Assessment & Plan: INR 2.1 yesterday Continue Coumadin Clinical Quality Measures DVT/VTE Risk/Contraindication: Risk Factor Score Per Nursin RFS Level Per Nursing on Admit: 4+=Very High LOPEZ DAWSON MD May 28, 2018 08:54
--- NOTE | 2018-05-28 08:56 | NUR ---
THE PATIENT WAS ABLE TO LIST EXACTLY WHAT SHE IS TAKING TO ME, I VERIFIED IT WITH THE EXT MED HX. SHE TAKES VITAMIN D OTC DAILY.
[2018-05-28] MEDS ORDERED: cefTRIAXone FOR IV USE 1,000 MG in WATER (STERILE) FOR INJECTION 10 ML IV SCH (09:00)
--- NOTE | 2018-05-28 09:02 | Diagnostic Imaging Report ---
INDICATION: Fall. TIME OF EXAM: 2:15 AM Comparison is made with prior chest from 08/17/2017. FINDINGS: Heart size is stable. Lungs are clear. No infiltrate is detected. No effusion or pneumothorax is seen. IMPRESSION: No acute cardiopulmonary process is identified. Dictated by: Dictated on workstation # [id number]
--- NOTE | 2018-05-28 10:55 | NUR ---
ARU NOTE: ARU referral sent by Dr. Luciano. Awaiting PT/OT evaluations to determine if patient is appropriate for ARU. Will continue to follow. Thank you for this referral. Addendum: 05/28/18 at 1215 by ERASTO DIAZ SS Per evaluating therapists, PT (Promise) and OT (Lina) patient would be an appropriate candidate for admission to ARU on 05/30. Therapist do not recommended ARU today due to pain limitations and inability to endure three hours of therapy at this time. [facility] has notified Dr. Luciano of ability to accept patient on 05/30.
--- NOTE | 2018-05-28 10:55 | NUR ---
Pt to room 404. Received report from PASCUAL Tee. Agree with previous assessment.
--- NOTE | 2018-05-28 11:43 | Physical Therapy Evaluation ---
PT Evaluation-General Medical Diagnosis Admission Date May 27, 2018 at 17:48 Medical Diagnosis: closed head injury/nausea Onset Date: May 27, 2018 Therapy Diagnosis Therapy Diagnosis: debility Height/Weight Height (Feet): 5 Height (Inches): 0.00 Weight (Pounds): 230 Weight (Ounces): 0.6 Precautions Precautions/Isolations: Fall Prevention, Standard Precautions Weight Bear Status Right Lower Extremity: Right Weight Bearing/Tolerated Left Lower Extremity: Left Weight Bearing/Tolerated Referral Physician: Shaun Reason for Referral: Evaluation/Treatment Medical History Pertinent Medical History: Arthritis, GERD Additional Medical History ORUTSARARMIUT/PE/DVT Current History EMS secondary to fall at local restaurant tripped on curb resulting in very large hematoma forehead and left radial styloid fracture Reviewed History: Yes Social History Home: Apartment Current Living Status: Alone Entry Into Home: Level Entry Prior/Core FIM Prior Level of Function Therapy Code Descriptions/Definitions Functional [place] Measure: 0=Not Assessed/NA 4=Minimal Assistance 1=Total Assistance 5=Supervision or Setup 2=Maximal Assistance 6=Modified [place] 3=Moderate Assistance 7=Complete [place] Therapy Quality Codes: 6 Independent with activity with or without an assistive device 5 Patient requires set up or clean up by helper. Patient completes activity by themselves 4 Supervision or touching assist (CGA). [place] provide cues , steadying assist 3 The helper provides less than half the effort to complete the activity 2 The helper provides more than half the effort to complete the activity 1 Dependent. The helper does all the effort to complete an activity 7 Patient refused to complete or attempt activity 9 The patient did not perform the activity before the current illness or injury 88 Not attempted due to Medical conditions or safety concerns Functional Abilities and Goals: Independent: Patient completed the activities by him/herself, with or without an assistive device, with no assistance from a helper. Needed Some Help: Patient needed partial assistance from another person to complete activities. Dependent: A helper completed the activities for the patient. Unknown: Not Applicable: Bed Mobility: 6 Transfers (B,C,W/C) (FIM): 6 Gait: 6 Stairs: 1 Indoor Mobility (Ambulation): Independent Stairs: Independent Prior Devices Use: Other-see list below Prior Device Use: straight cane still drives PT Evaluation-Current Subjective Patient agrees to PT. She requests toileting prior to ambulation. Pain Numeric Pain Scale: 3 Location: Left Location Body Site: Wrist Pain Description: Acute Numeric Pain Scale: 7 Location: Soft Tissue Location Body Site: Generalized Pain Description: Acute Comment: total body pain due to trauma Objective Patient Orientation: Person, Time, Situation Problem Solving: Fair ROM/Strength ROM Lower Extremities bilateral LE WFL Strength Lower Extremities 4-/5 grossly bilaterally Integumentary/Posture Integumentary multiple contusions face and right knee Bowel Incontinence: No Bladder Incontinence: No Posture WFL Neuromuscular (Tone, Coordination, Reflexes) grossly intact Sensory Vision: impaired due to edema bilateral eyes Hearing: Impaired Sensation Right Lower Extremit: Intact Sensation Left Lower Extremity: Intact Transfers Therapy Code Descriptions/Definitions Functional [place] Measure: 0=Not Assessed/NA 4=Minimal Assistance 1=Total Assistance 5=Supervision or Setup 2=Maximal Assistance 6=Modified [place] 3=Moderate Assistance 7=Complete [place] Transfers (B, C, W/C) (FIM): 5 Scootin Supine to/from Sit: 5 Sit to/from Stand: 5 close SBA for safety/patient able to perform toileting independently on this date Gait Mode of Locomotion: Walk Anticipated Mode of Locomotion: Walk Gait (FIM): 4 Distance (FIM): 3=150 ft Distance: 175' x 2 Gait Level of Assist: 4 Gait Persons Needed: 1 Gait Assistive Device: Cane Single Point Comments/Gait Description CGA with patient performing step to gait sequence due to total body pain and fear of falling per patient report (vision impaired due to swelling) Balance Sitting Static: Fair Sitting Dynamic: Fair Standing Static: Fair Standing Dynamic: Fair Assessment/Needs 82 y.o. female, will benefit from skilled PT to address functional strength and mobility to improve current LOF. From a PT standpoint, patient will benefit from continued skilled therapy in ARU in 2-3 days to allow patient to recover and to ensure patient is able to tolerate and actively participate in 3 hours of skilled therapy required. Rehab Potential: Fair PT Usp Goals Clinical Counselor Goals PT Clinical Counselor Goals Time Frame: Jun 05, 2018 Transfers (B,C,W/C) (FIM): 6 Gait (FIM): 6 Gait distance (FIM): 3=150 ft Distance: 250' Gait Level of Assist: 6 Gait Assistive Device: Cane Single Point Stairs (FIM): 2 # of Steps: 4 Stairs Level Of Assist: 5 PT Plan Problem List Problem List: Activity Tolerance, Functional Strength, Balance, Gait, Bed Mobility Treatment/Plan Treatment Plan: Continue Plan of Care Treatment Plan: Bed Mobility, Education, Functional Activity [place], Functional Strength, Gait, Safety, Therapeutic Exercise, Transfers Treatment Duration: Jun 05, 2018 Frequency: 6 times per week Estimated Hrs Per Day: .25 hour per day Patient and/or Family Agrees t: Yes Discharge Recommendations Therapy D/C Recommendations: Acute Rehab (in 2-3 days) Time/GCodes Time In: 1120 Time Out: 1135 Total Billed Treatment Time: 15 Total Billed Treatment 1 visit EVMod 15 min SALOME TERAN PT May 28, 2018 11:43
--- NOTE | 2018-05-28 14:26 | Occupational Therapy Eval ---
OT Evaluation-General/PLF Medical Diagnosis Admission Date May 27, 2018 at 17:48 Medical Diagnosis: closed head injury/nausea Onset Date: May 27, 2018 Therapy Diagnosis Therapy Diagnosis: decreased self care skills Height/Weight Height (Feet): 5 Height (Inches): 0.00 Weight (Pounds): 230 Weight (Ounces): 0.6 Precautions Precautions/Isolations: Fall Prevention, Standard Precautions Safety Interventions: Bed Exit Alarm Referral Physician: Shaun Medical History Pertinent Medical History: Arthritis, GERD Additional Medical History bilateral TKA, DVT, diverticulosis, TANANA, anxiety, depression Current History Pt admitted after fall with hematoma to forehead and left wrist non-displaced radial styloid fracture Social History Home: Apartment Current Living Status: Alone Entry Into Home: Level Entry ADL-Prior Level of Function Therapy Code Descriptions/Definitions Functional [place] Measure: 0=Not Assessed/NA 4=Minimal Assistance 1=Total Assistance 5=Supervision or Setup 2=Maximal Assistance 6=Modified H[place] 3=Moderate Assistance 7=Complete Hana Therapy Quality Codes: 6 Independent with activity with or without an assistive device 5 Patient requires set up or clean up by helper. Patient completes activity by themselves 4 Supervision or touching assist (CGA). [employer] provide cues , steadying assist 3 The helper provides less than half the effort to complete the activity 2 The helper provides more than half the effort to complete the activity 1 Dependent. The helper does all the effort to complete an activity 7 Patient refused to complete or attempt activity 9 The patient did not perform the activity before the current illness or injury 88 Not attempted due to Medical conditions or safety concerns Functional Abilities and Goals: Independent: Patient completed the activities by him/herself, with or without an assistive device, with no assistance from a helper. Needed Some Help: Patient needed partial assistance from another person to complete activities. Dependent: A helper completed the activities for the patient. Unknown: Not Applicable: ADL PLOF Comments Pt reports being independent with self care and mobility prior to admission. Pt states she completes cooking and cleaning tasks. Niece checks on her occasionally Self Care: Independent Functional Cognition: Independent DME/Equipment: Grab Bars, Shower, Tall Toilet Drive Self: Yes OT Current Status Subjective Pt sitting in chair, agrees to therapy. Pt reports 4/10 pain in left arm, head, and neck. Pt has bruising and swelling of eyes. Mental Status/Objective Patient Orientation: Person, Place, Situation Current Glasses/Contacts: Yes Hearing Aids: No Hand Dominance: Right Upper Extremity ROM right UE grossly functional. Left UE: decreased shoulder ROM secondary to prior fracture. Pt's left forearm/ hand are splinted secondary to fracture Upper Extremity Coordination decreased left UE ADL-Treatment ADL-Current Pt completed grooming tasks with minimal assistance while seated in chair. Pt demonstrated ability to perform sit to stand with CGA. Pt has decreased activity tolerance. Pt states she was just up to restroom and ambulated in hallway with PT. Pt returned to chair with CGA. Sitting with needs met after session. Therapy Code Descriptions/Definitions Functional [place] Measure: 0=Not Assessed/NA 4=Minimal Assistance 1=Total Assistance 5=Supervision or Setup 2=Maximal Assistance 6=Modified Hana 3=Moderate Assistance 7=Complete Hana Therapy Quality Codes: 6 Independent with activity with or without an assistive device 5 Patient requires set up or clean up by helper. Patient completes activity by themselves 4 Supervision or touching assist (CGA). [employer] provide cues , steadying assist 3 The helper provides less than half the effort to complete the activity 2 The helper provides more than half the effort to complete the activity 1 Dependent. The helper does all the effort to complete an activity 7 Patient refused to complete or attempt activity 9 The patient did not perform the activity before the current illness or injury 88 Not attempted due to Medical conditions or safety concerns Grooming (FIM): 4 Education OT Patient Education: Rehab process Teaching Recipient: Patient Teaching Methods: Discussion Response to Teaching: Verbalize Understanding OT Short Term Goals Short Term Goals 1=Demonstrate adherence to instructed precautions during ADL tasks. 2=Patient will verbalize/demonstrate understanding of assistive devices/ modifications for ADL. 3=Patient will improve strength/tolerance for activity to enable patient to perform ADL's. OT [facility] Goals Sampling Expert Goals Time Frame: Jun 11, 2018 Eating (FIM): 6 Grooming(FIM): 6 Upper Body Dressing(FIM): 5 Lower Body Dressing(FIM): 5 Toileting(FIM): 6 Toilet/Commode Transfer(FIM): 6 Additional Goals: 1-Demonstrate ADL Tasks, 2-Verbalize Understanding, 3- ImproveStrength/Cintia 1=Demonstrate adherence to instructed precautions during ADL tasks. 2=Patient will verbalize/demonstrate understanding of assistive devices/ modifications for ADL. 3=Patient will improve strength/tolerance for activity to enable patient to perform ADL's. OT Education/Plan Problem List/Assessment Assessment: Decreased Activ Tolerance, Decreased UE Strength, Dependent Transfers, Impaired I ADL's, Impaired Self-Care Skills Pt admitted after fall resulting in left radial styloid fracture and forehead hematoma. Pt willing to participate in therapy, but has decreased activity tolerance and reports pain in neck, head, and left arm. Pt also has some difficulty with vision secondary to swelling. Pt's left wrist/hand are in splint secondary to fracture, impacting ability to use for functional tasks. Pt to benefit from skilled OT intervention for ADL training, transfers, strengthening, and safety education to increase functional independence and allow safe discharge home. Discharge Recommendations Plan/Recommendations: Continue POC Treatment Plan/Plan of Care Patient would benefit from OT for education, treatment and training to promote independence in ADL's, mobility, safety and/or upper extremity function for ADL' s. Plan of Care: ADL Retraining, Functional Mobility, UE Funct Exercise/Act Treatment Duration: Jun 11, 2018 Frequency: 5 times per week Estimated Hrs Per Day: .25 hour per day Rehab Potential: Fair Time/GCodes Start Time: 11:35 Stop Time: 11:52 Total Time Billed (hr/min): 17 Billed Treatment Time 1 visit, YEIMI(17minutes) VANNA BRAGG OT May 28, 2018 14:26
--- NOTE | 2018-05-28 15:56 | Progress Note ---
Subjective Date Seen by a Provider: May 28, 2018 Time Seen by a Provider: 09:10 Subjective/Events-last exam patient states she's doing okay. Patient having some slight headache. She still having some slight nausea. Patient with moderate headache but overall pain is fairly controlled. She's had no neurological changes. Patient with repeat head CT negative. Patient states she had a couple previous falls recently and has been an inpatient rehabilitation prior to try improving her gait. No other complaints at this time. No patient family present at this time. Objective Exam Vital Signs Date Time Temp Pulse Resp B/P (MAP) Pulse Ox O2 Delivery O2 Flow Rate FiO2 05/28/18 15:38 Nasal Cannula 2.00 05/28/18 12:00 98.1 65 22 151/70 (97) 98 Nasal Cannula 2.00 05/28/18 10:55 98.2 61 20 107/69 (82) 97 Nasal Cannula 2.00 05/28/18 10:00 58 19 124/72 (89) 98 Nasal Cannula 2.00 05/28/18 09:00 98.1 05/28/18 09:00 66 29 127/56 (79) 96 Nasal Cannula 2.00 05/28/18 08:00 66 24 122/55 (77) 98 Nasal Cannula 2.00 05/28/18 08:00 97 Nasal Cannula 2.00 05/28/18 07:00 64 05/28/18 07:00 69 27 117/77 (90) 98 Nasal Cannula 2.00 05/28/18 06:00 64 23 114/60 (78) 97 Nasal Cannula 2.00 05/28/18 05:00 70 24 141/67 (91) 96 Nasal Cannula 2.00 05/28/18 04:00 67 21 132/65 (87) 96 Nasal Cannula 2.00 05/28/18 03:50 97 Nasal Cannula 2.00 05/28/18 03:13 64 25 119/62 (81) 99 Nasal Cannula 2.00 05/28/18 02:00 65 21 138/58 (84) 99 Nasal Cannula 2.00 05/28/18 01:00 68 22 115/63 (80) 97 Nasal Cannula 2.00 05/28/18 00:00 81 26 131/49 (76) 97 Nasal Cannula 2.00 05/27/18 23:20 97 Nasal Cannula 2.00 05/27/18 23:20 98.1 Nasal Cannula 2.00 05/27/18 23:00 73 23 126/55 (78) 98 Nasal Cannula 2.00 05/27/18 22:00 72 24 119/53 (75) 98 05/27/18 21:30 96 Nasal Cannula 2.00 05/27/18 21:00 75 25 127/55 (79) 99 05/27/18 20:00 77 16 110/46 (67) 93 05/27/18 19:45 96 Room Air 05/27/18 19:30 97.9 68 23 148/68 (94) 96 Room Air 05/27/18 19:00 71 05/27/18 18:30 97.1 80 18 170/75 (106) 94 Room Air I & O 05/28/18 07:00 Intake Total 225 ml Output Total 895 ml Balance -670 ml Capillary Refill : Less Than 3 SecondsLess Than 3 Seconds General Appearance: No Apparent Distress, Obese HEENT: Moist Mucous Membranes; No Scleral Icterus (L), No Scleral Icterus (R); Other (forehead hematoma wrapped in pressure dressing) Neck: Normal Inspection Respiratory: Chest Non Tender, No Accessory Muscle Use, No Respiratory Distress Cardiovascular: Regular Rate, Rhythm Gastrointestinal: normal bowel sounds, non tender, soft, no organomegaly Extremity: No Calf Tenderness, No Pedal Edema, Swelling (left wrist in splint) Neurologic/Psychiatric: Alert, Oriented x3, Normal Mood/Affect Skin: Normal Color, Warm/Dry, Other (abrasions to nose and ecchymosis around bilateral orbits) Lymphatic: No Adenopathy Results Lab Laboratory Tests 05/27/18 16:34: White Blood Count 5.5, Red Blood Count 4.21L, Hemoglobin 13.7, Hematocrit 42, Mean Corpuscular Volume 99, Mean Corpuscular Hemoglobin 33, Mean Corpuscular Hemoglobin Concent 33, Red Cell Distribution Width 14.2, Platelet Count 193, Mean Platelet Volume 9.7, Prothrombin Time 23.4H, INR Comment 2.1H, Sodium Level 140, Potassium Level 4.0, Chloride Level 106, Carbon Dioxide Level 24, Anion Gap 10, Blood Urea Nitrogen 20H, Creatinine 1.08, Estimat Glomerular Filtration Rate 49, BUN/Creatinine Ratio 19, Glucose Level 91, Calcium Level 9.8 05/28/18 02:20: Urine Color YELLOW, Urine Clarity SLIGHTLY CLOUDY, Urine pH 6, Urine Specific Wilson 1.015L, Urine Protein NEGATIVE, Urine Glucose (UA) NEGATIVE, Urine Ketones NEGATIVE, Urine Nitrite POSITIVEH, Urine Bilirubin NEGATIVE, Urine Urobilinogen NORMAL, Urine Leukocyte Esterase 1+H, Urine RBC (Auto) NEGATIVE, Urine RBC NONE, Urine WBC 5-10H, Urine Squamous Epithelial Cells 0-2, Urine Crystals NONE, Urine Bacteria LARGEH, Urine Casts NONE, Urine Mucus NEGATIVE, Urine Culture Indicated YES 05/28/18 03:11: White Blood Count 5.0, Red Blood Count 3.49L, Hemoglobin 11.4L, Hematocrit 35, Mean Corpuscular Volume 100H, Mean Corpuscular Hemoglobin 33, Mean Corpuscular Hemoglobin Concent 33, Red Cell Distribution Width 14.2, Platelet Count 173, Mean Platelet Volume 9.8, Sodium Level 140, Potassium Level 4.3, Chloride Level 107, Carbon Dioxide Level 25, Anion Gap 8, Blood Urea Nitrogen 18, Creatinine 1.02, Estimat Glomerular Filtration Rate 52, BUN/Creatinine Ratio 18, Glucose Level 94, Calcium Level 8.7, Neutrophils (%) (Auto) 67, Lymphocytes (%) (Auto) 20, Monocytes (%) (Auto) 12, Eosinophils (%) (Auto) 1, Basophils (%) (Auto) 0, Neutrophils # (Auto) 3.3, Lymphocytes # (Auto) 1.0, Monocytes # (Auto) 0.6, Eosinophils # (Auto) 0.1, Basophils # (Auto) 0.0, Phosphorus Level 3.0, Magnesium Level 1.8 Assessment/Plan Assessment/Plan Assessment/Plan fall Closed head injury left nondisplaced radial styloid fx abrasions to face skilled nursing anticoagulation for history of blood clots nausea try to control nausea pain control Patient okay to transfer to floor Inpatient rehabilitation consult Dr. Zuniga placed splint and patient will need outpatient ortho follow up Clinical Quality Measures DVT/VTE Risk/Contraindication: Risk Factor Score Per Nursin RFS Level Per Nursing on Admit: 4+=Very High MUMTAZ PATEL DO May 28, 2018 15:56
[2018-05-29] VITALS: BP 124/58
[2018-05-29 06:30] LABS: BASOPHILS % (AUTO) 1 % (0-10); EOSINOPHILS # (AUTO) 0.1 10^3/uL (0.0-0.3); EOSINOPHILS % (AUTO) 3 % (0-10); HEMATOCRIT 34 % (35-52); HEMOGLOBIN 11.1 G/DL (11.5-16.0); LYMPHOCYTES % (AUTO) 22 % (12-44); MEAN CORPUSCULAR HEMOGLOBIN 33 PG (25-34); MEAN CORPUSCULAR HGB CONC 32 G/DL (32-36); MEAN CORPUSCULAR VOLUME 101 FL (80-99); MEAN PLATELET VOLUME 9.7 FL (7.4-10.4); MONOCYTES # (AUTO) 0.6 X 10^3 (0.0-1.0); MONOCYTES % (AUTO) 14 % (0-12); NEUTROPHILS # (AUTO) 2.7 X 10^3 (1.8-7.8); NEUTROPHILS % (AUTO) 61 % (42-75); PLATELET COUNT 180 10^3/uL (130-400); RED CELL DISTRIBUTION WIDTH 14.3 % (10.0-14.5); WHITE BLOOD COUNT 4.4 10^3/uL (4.3-11.0)
[2018-05-29 06:39] LABS: INR 1.8 (0.8-1.4); PROTHROMBIN TIME PATIENT 20.5 SEC (12.2-14.7)
[2018-05-29 06:48] LABS: CALCIUM 8.5 MG/DL (8.5-10.1); CREATININE SERUM 1.11 MG/DL (0.60-1.30); MAGNESIUM 1.9 MG/DL (1.8-2.4); PHOSPHORUS 3.2 MG/DL (2.3-4.7); POTASSIUM 4.1 MMOL/L (3.6-5.0)
--- NOTE | 2018-05-29 07:28 | Progress Note ---
Subjective Date Seen by a Provider: May 29, 2018 Time Seen by a Provider: 07:23 Subjective/Events-last exam Patient resting. Slight headache. No new complaints. Hurts slightly when ambulating. Left wrist in splint. No family at bedside. Objective Exam Vital Signs Date Time Temp Pulse Resp B/P (MAP) Pulse Ox O2 Delivery O2 Flow Rate FiO2 05/29/18 00:00 100.0 82 18 124/58 (80) 92 Room Air 05/28/18 20:00 Room Air 05/28/18 16:48 98.4 67 20 136/63 (87) 97 Room Air 05/28/18 15:38 Nasal Cannula 2.00 05/28/18 12:00 98.1 65 22 151/70 (97) 98 Nasal Cannula 2.00 05/28/18 10:55 98.2 61 20 107/69 (82) 97 Nasal Cannula 2.00 05/28/18 10:00 58 19 124/72 (89) 98 Nasal Cannula 2.00 05/28/18 09:00 98.1 05/28/18 09:00 66 29 127/56 (79) 96 Nasal Cannula 2.00 05/28/18 08:00 66 24 122/55 (77) 98 Nasal Cannula 2.00 05/28/18 08:00 97 Nasal Cannula 2.00 I & O 05/29/18 07:00 Intake Total 1030 ml Output Total 700 ml Balance 330 ml Capillary Refill : Less Than 3 SecondsLess Than 3 Seconds General Appearance: No Apparent Distress, Obese HEENT: Moist Mucous Membranes; No Scleral Icterus (L), No Scleral Icterus (R); Other (forehead hematoma and abrasion to forehead and bridge of nose. echymosis b/l orbits) Neck: Normal Inspection Respiratory: Chest Non Tender, No Accessory Muscle Use, No Respiratory Distress Cardiovascular: Regular Rate, Rhythm Gastrointestinal: normal bowel sounds, non tender, soft, no organomegaly Extremity: No Calf Tenderness, No Pedal Edema, Swelling (left wrist in splint) Neurologic/Psychiatric: Alert, Oriented x3, Normal Mood/Affect Skin: Normal Color, Warm/Dry, Other (abrasions to nose and ecchymosis around bilateral orbits) Lymphatic: No Adenopathy Results Lab Laboratory Tests 05/29/18 05:28: White Blood Count 4.4, Red Blood Count 3.41L, Hemoglobin 11.1L, Hematocrit 34L, Mean Corpuscular Volume 101H, Mean Corpuscular Hemoglobin 33, Mean Corpuscular Hemoglobin Concent 32, Red Cell Distribution Width 14.3, Platelet Count 180, Mean Platelet Volume 9.7, Neutrophils (%) (Auto) 61, Lymphocytes (%) (Auto) 22, Monocytes (%) (Auto) 14H, Eosinophils (%) (Auto) 3, Basophils (%) (Auto) 1, Neutrophils # (Auto) 2.7, Lymphocytes # (Auto) 1.0, Monocytes # (Auto) 0.6, Eosinophils # (Auto) 0.1, Basophils # (Auto) 0.0, Prothrombin Time 20.5H, INR Comment 1.8H, Sodium Level 139, Potassium Level 4.1, Chloride Level 106, Carbon Dioxide Level 24, Anion Gap 9, Blood Urea Nitrogen 19H, Creatinine 1.11, Estimat Glomerular Filtration Rate 47, BUN/Creatinine Ratio 17, Glucose Level 97 , Calcium Level 8.5, Phosphorus Level 3.2, Magnesium Level 1.9 Microbiology 05/27/18 MRSA Screen - Final, Complete MRSA not isolated Assessment/Plan Assessment/Plan Assessment/Plan fall Closed head injury left nondisplaced radial styloid fx abrasions to face jail anticoagulation for history of blood clots nausea control nausea pain control Patient likely to Inpatient rehabilitation tomorrow Dr. Zuniga placed splint and patient will need outpatient ortho follow up Discussed with Dr. Simon Carrion [employer], splint and need follow up with them in 1- 2 weeks. Incentive spirometer Anticoagulation for DVT prophylaxis. Clinical Quality Measures DVT/VTE Risk/Contraindication: Risk Factor Score Per Nursin RFS Level Per Nursing on Admit: 4+=Very High MUMTAZ PATEL DO May 29, 2018 07:28
[2018-05-29 08:00] VITALS: BP 138/75
[2018-05-29] MEDS: OXYBUTYNIN (DITROPAN) 5 MG TAB PO SCH ×2 (08:46→20:06)
[2018-05-29] MEDS: VITAMIN D3 1,000 UNITS (CHOLECALCIFEROL) TABLET PO SCH (08:46)
[2018-05-29] MEDS: cefTRIAXone FOR IV USE 1,000 MG in WATER (STERILE) FOR INJECTION 10 ML IV SCH (09:56)
--- NOTE | 2018-05-29 11:46 | Physical Therapy Daily Note ---
PT Daily Note-Current Subjective Pt feeling nautious as Dr. santa changed the dressing on her forehead. Mental Status Patient Orientation: Normal For Age Transfers Therapy Code Descriptions/Definitions Functional [place] Measure: 0=Not Assessed/NA 4=Minimal Assistance 1=Total Assistance 5=Supervision or Setup 2=Maximal Assistance 6=Modified [place] 3=Moderate Assistance 7=Complete [place] Therapy Quality Codes: 6 Independent with activity with or without an assistive device 5 Patient requires set up or clean up by helper. Patient completes activity by themselves 4 Supervision or touching assist (CGA). [place] provide cues , steadying assist 3 The helper provides less than half the effort to complete the activity 2 The helper provides more than half the effort to complete the activity 1 Dependent. The helper does all the effort to complete an activity 7 Patient refused to complete or attempt activity 9 The patient did not perform the activity before the current illness or injury 88 Not attempted due to Medical conditions or safety concerns Transfers (B, C, W/C) (FIM): 5 Supine to/from Sit: 5 Sit to/from Stand: 5 Bed to/from Chair: 5 Weight Bearing Right Lower Extremity: Right Weight Bearing/Tolerated Left Lower Extremity: Left Weight Bearing/Tolerated Gait Training Gait (FIM): 5 Distance (FIM): 3=150 ft Distance: 150 Gait Level of Assist: 5 Gait Persons Needed: 1 Gait Assistive Device: Cane Single Point Assessment Current Status: Good Progress Improved bed mobility and transfers this session. PT Belt Repairer Goals Assisted Goals PT Assisted Goals Time Frame: Jun 05, 2018 Transfers (B,C,W/C) (FIM): 6 Gait (FIM): 6 Gait distance (FIM): 3=150 ft Distance: 250' Gait Level of Assist: 6 Gait Assistive Device: Cane Single Point Stairs (FIM): 2 # of Steps: 4 Stairs Level Of Assist: 5 PT Plan Treatment/Plan Treatment Plan: Continue Plan of Care Treatment Plan: Bed Mobility, Education, Functional Activity Cintia, Functional Strength, Gait, Safety, Therapeutic Exercise, Transfers Treatment Duration: Jun 05, 2018 Frequency: 6 times per week Estimated Hrs Per Day: .25 hour per day Patient and/or Family Agrees t: Yes Time/GCodes Time In: 1025 Time Out: 1040 Total Billed Treatment Time: 15 Total Billed Treatment visit, gait 15 min SABINE HINKLE PT May 29, 2018 11:46
[2018-05-29 16:00] VITALS: BP 146/66
[2018-05-29] MEDS ORDERED: warFARin 5 MG (COUMADIN) TAB PO SCH (18:00)
[2018-05-30] VITALS: BP 134/77
[2018-05-30 06:50] LABS: BASOPHILS % (AUTO) 0 % (0-10); EOSINOPHILS # (AUTO) 0.1 10^3/uL (0.0-0.3); EOSINOPHILS % (AUTO) 2 % (0-10); HEMATOCRIT 33 % (35-52); HEMOGLOBIN 10.6 G/DL (11.5-16.0); LYMPHOCYTES # (AUTO) 1.3 X 10^3 (1.0-4.0); LYMPHOCYTES % (AUTO) 23 % (12-44); MEAN CORPUSCULAR HEMOGLOBIN 33 PG (25-34); MEAN CORPUSCULAR HGB CONC 32 G/DL (32-36); MEAN CORPUSCULAR VOLUME 100 FL (80-99); MEAN PLATELET VOLUME 10.2 FL (7.4-10.4); MONOCYTES # (AUTO) 0.8 X 10^3 (0.0-1.0); MONOCYTES % (AUTO) 14 % (0-12); NEUTROPHILS # (AUTO) 3.4 X 10^3 (1.8-7.8); NEUTROPHILS % (AUTO) 61 % (42-75); PLATELET COUNT 170 10^3/uL (130-400); RED CELL DISTRIBUTION WIDTH 13.9 % (10.0-14.5); WHITE BLOOD COUNT 5.6 10^3/uL (4.3-11.0)
[2018-05-30 07:19] LABS: CALCIUM 8.5 MG/DL (8.5-10.1); CREATININE SERUM 0.99 MG/DL (0.60-1.30); MAGNESIUM 1.7 MG/DL (1.8-2.4); PHOSPHORUS 3.1 MG/DL (2.3-4.7)
[2018-05-30 08:00] VITALS: BP 124/59
[2018-05-30] MEDS: cefTRIAXone FOR IV USE 1,000 MG in WATER (STERILE) FOR INJECTION 10 ML IV SCH (09:10)
[2018-05-30] MEDS: OXYBUTYNIN (DITROPAN) 5 MG TAB PO SCH (09:10)
[2018-05-30] MEDS: VITAMIN D3 1,000 UNITS (CHOLECALCIFEROL) TABLET PO SCH (09:11)
--- NOTE | 2018-05-30 09:42 | Discharge Summary-Hospitalist ---
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 INR 1.8 Continue Coumadin Discharge Summary Procedures/Consulations Dr Luciano- [facility] for [facility] Pulm and Hospitalist consultations Discharge Physical Exam Allergies: Coded Allergies: Penicillins (Verified Allergy, Mild, Pt has received Ceftriaxone in the past w/o issue, 05/28/18) Vitals & I&Os Vital Signs Date Time Temp Pulse Resp B/P (MAP) Pulse Ox O2 Delivery O2 Flow Rate FiO2 05/30/18 08:00 99.2 72 18 124/59 (80) 93 Room Air 05/29/18 08:09 General Appearance: No Apparent Distress Respiratory: Lungs Clear, No Respiratory Distress Cardiovascular: Regular Rate, Rhythm, No Murmur Skin: Ecchymosis (left knee, periorbital) Neurologic/Psychiatric: Alert, Oriented x3 Hospital Course Pt was admitted following a fall at a local restaurant and sustained a left radial styloid fracture, facial hematoma, and significant bruising. She is on Coumadin chronically and was admitted for observation. CT head was negative on presentation and repeat 12 hours later was as well. She was evaluated by PT/OT due to her fall and was deemed and appropriate candidate for IRU. She was transferred there in stable condition. Labs (last 24 hrs) Laboratory Tests 05/30/18 05:25: White Blood Count 5.6, Red Blood Count 3.26L, Hemoglobin 10.6L, Hematocrit 33L, Mean Corpuscular Volume 100H, Mean Corpuscular Hemoglobin 33, Mean Corpuscular Hemoglobin Concent 32, Red Cell Distribution Width 13.9, Platelet Count 170, Mean Platelet Volume 10.2, Neutrophils (%) (Auto) 61, Lymphocytes (%) (Auto) 23 , Monocytes (%) (Auto) 14H, Eosinophils (%) (Auto) 2, Basophils (%) (Auto) 0, Neutrophils # (Auto) 3.4, Lymphocytes # (Auto) 1.3, Monocytes # (Auto) 0.8, Eosinophils # (Auto) 0.1, Basophils # (Auto) 0.0, Sodium Level 137, Potassium Level 4.0, Chloride Level 104, Carbon Dioxide Level 24, Anion Gap 9, Blood Urea Nitrogen 18, Creatinine 0.99, Estimat Glomerular Filtration Rate 54, BUN/ Creatinine Ratio 18, Glucose Level 103, Calcium Level 8.5, Phosphorus Level 3.1 , Magnesium Level 1.7L Microbiology 05/27/18 MRSA Screen - Final, Complete MRSA not isolated 05/28/18 Urine Culture - Preliminary, Resulted Escherichia coli Patient resulted labs reviewed. Pending Labs Laboratory Tests 05/30/18 05:25: White Blood Count 5.6, Red Blood Count 3.26, Hemoglobin 10.6, Hematocrit 33, Mean Corpuscular Volume 100, Mean Corpuscular Hemoglobin 33, Mean Corpuscular Hemoglobin Concent 32, Red Cell Distribution Width 13.9, Platelet Count 170, Mean Platelet Volume 10.2, Neutrophils (%) (Auto) 61, Lymphocytes (%) (Auto) 23 , Monocytes (%) (Auto) 14, Eosinophils (%) (Auto) 2, Basophils (%) (Auto) 0, Neutrophils # (Auto) 3.4, Lymphocytes # (Auto) 1.3, Monocytes # (Auto) 0.8, Eosinophils # (Auto) 0.1, Basophils # (Auto) 0.0, Sodium Level 137, Potassium Level 4.0, Chloride Level 104, Carbon Dioxide Level 24, Anion Gap 9, Blood Urea Nitrogen 18, Creatinine 0.99, Estimat Glomerular Filtration Rate 54, BUN/ Creatinine Ratio 18, Glucose Level 103, Calcium Level 8.5, Phosphorus Level 3.1 , Magnesium Level 1.7 Imaging: Reviewed Imaging Report Discussion & Recommendations Discharge Planning: >30 minutes discharge planning Discharge Home Medications: Active Scripts Active Reported Oxybutynin Chloride ER (Oxybutynin Chloride) 10 Mg Tab.er.24 10 Mg PO DAILY Vitamin D3 (Cholecalciferol (Vitamin D3)) 2,000 Unit Capsule 2,000 Unit PO DAILY Citalopram HBr (Citalopram Hydrobromide) 20 Mg Tablet 20 Mg PO DAILY Jantoven (Warfarin Sodium) 2 Mg Tablet 5 Mg PO 1800 TAKES 2 & 1/2 (2MG) TABLET Instructions to patient/family Please see electronic discharge instructions given to patient. Clinical Quality Measures DVT/VTE Risk/Contraindication: Risk Factor Score Per Nursin RFS Level Per Nursing on Admit: 4+=Very High Problem Qualifiers (1) Radial styloid fracture: Encounter type: initial encounter Fracture type: closed Fracture alignment: nondisplaced Laterality: left Qualified Codes: S52.515A - Nondisplaced fracture of left radial styloid process, initial encounter for closed fracture (2) Facial hematoma: Encounter type: initial encounter Qualified Codes: S00.83XA - Contusion of other part of head, initial encounter LOPEZ DAWSON MD May 30, 2018 09:42
--- NOTE | 2018-05-30 10:30 | NUR ---
REPORT GIVEN TO ARFranny MEJÍA.
[2018-05-30] MEDS ORDERED: LIDOCAINE 4% (SALONPAS) PATCH ONE (11:34)
--- NOTE | 2018-05-30 11:56 | NUR ---
PATIENT AND HER BELONGINGS TRANSFERRED TO ARU VIA WHEELCHAIR BY PCCRachel WELLS.
--- NOTE | 2018-05-30 13:21 | Diagnostic Imaging Report ---
EXAM: RIBS, LEFT 2-3 VIEWS INDICATION: Fall. Left torso bruising. Left chest pain. COMPARISON: Chest radiograph 08/17/2017, 05/28/2018. FINDINGS: Again seen are chronic posterior left fifth through seventh rib fractures. No new rib fractures are identified. Examination is limited by demineralization. IVC filter. Advanced spondylotic changes in the visualized spine. Left lung field is clear. Chronic fracture of the left humeral head. IMPRESSION: Chronic left humeral and posterior left fifth through seventh rib fractures. No acute fractures are identified. Dictated by: Dictated on workstation # [id number]
[2018-05-30] MEDS ORDERED: PATCH REMOVAL TP SCH (21:00)
[2018-05-31] MEDS ORDERED: LIDOCAINE 4% (SALONPAS) PATCH TOP SCH (09:00)
== END 2018-05-30 11:55 ==
LOC: EDUNIT# 15:05 → ER 15:06 → ICU 17:48 → 4TH 05-28 10:15
PROVIDERS: ADMIT Surgery; ATTEND Surgery
DX: S52.512A Displaced fracture of left radial styloid process, initial encounter for closed fracture (principal); S00.83XA Contusion of other part of head, initial encounter; K21.9 Gastro-esophageal reflux disease without esophagitis; K57.90 Diverticulosis of intestine, part unspecified, without perforation or abscess without bleeding; H91.90 Unspecified hearing loss, unspecified ear; F41.9 Anxiety disorder, unspecified; F32.9 Major depressive disorder, single episode, unspecified; W18.30XA Fall on same level, unspecified, initial encounter; Y92.511 Restaurant or cafe as the place of occurrence of the external cause; Z86.711 Personal history of pulmonary embolism; Z86.718 Personal history of other venous thrombosis and embolism; Z88.0 Allergy status to penicillin; Z79.01 Long term (current) use of anticoagulants; Z79.899 Other long term (current) drug therapy
CPT/HCPCS: 36415; 70450; 70486; 71045; 71100; 72125; 73110; 73130; 73562; 80048; 81000; 83735; 84100; 85025; 85027; 85610; 87077; 87081; 87088; 87186; 90471; 90715; 94664; 96374; 96375

== ENCOUNTER 2018-05-30 12:10 | Inpatient (IN) | payer MEDICARE ==
[~2018-05-30] VITALS: Ht 152.4 cm; Wt 98.0 kg
[~2018-05-30 12:10] MED LIST changes: +ALPRAZolam 0.25 MG (XANAX) TAB PO PRN; +CALCIUM CARBONATE 500 MG (TUMS) TAB.CHEW PO PRN; +LOPERAMIDE 2 MG (IMODIUM) CAP PO PRN; +MELATONIN 3 MG TABLET PO PRN; +ONDANSETRON 4 MG (ZOFRAN) ORAL DISSOLVE TAB PO PRN; +diphenhydrAMINE 25 MG TAB (BENADRYL) PO PRN
--- NOTE | 2018-05-30 12:10 | NUR ---
Pt admitted to room 223, with an admitting diagnosis of Debility, Impaired Mobility post fall from 4th floor via w/c, accompanied by staff. AYAN BOGGS introduced to surroundings, call light, bed controls, phone, TV, temperature control, lights, meal times, smoking policy, visitor policy, side rail policy, bathrooms and showers. Patient Rights provided to patient in the handbook. AYAN BOGGS verbalizes understanding that [facility] is not responsible for the loss or damage to any personal effects or valuables that are kept in the patients posession during their hospitalization. The following Patient Care Plans were discussed with the pt: Discharge Planning, Impaired Mobility, Potential for fall/injury, ALteration in skin integrity. AYAN BOGGS verbalizes understanding of Interdisciplinary Patient Education. Patient and/or family were informed about the Rapid Response Team and its purpose. Patient received Patient Rights Booklet, which includes Privacy Act Statement and Data Collection Information Summary.
[2018-05-30 13:07] VITALS: BP 125/85
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
--- NOTE | 2018-05-30 13:35 | NUR ---
To xray and back.
--- NOTE | 2018-05-30 13:45 | PM&R H&P / Post Admit Assess ---
History of Present Illness HPI/Chief Complaint CC: Debility following fall with TBI with large frontal scalp hematoma left knee hematoma without fracture and left wrist nondisplaced radial styloid fx HPI: This is an 82-year-old white female who has been a patient in inpatient rehabilitation unit at [facility] 10 months ago who is a patient of Dr. Acharya 'bon who sustained a traumatic brain injury when she fell on her face after she missed a step heading into a local restaurant. She is maintained on Coumadin long-term due to hypercoagulable state with history of blood clots in the past. She was placed on the trauma service along with multiple consultants who placed her left wrist in a brace and monitor closely over the last 3 days with pain management and ambulation as much as possible with the use of incentive spirometer. Narcotic bowel is now resolved and she is currently eating lunch but has pain in her left ribs and has a history of for fractures in the past. She lives at home alone and will return to home to live independently after discharge from the rehabilitation facility. Source: patient Exam Limitations: no limitations Date Seen 05/30/18 Time Seen by a Provider: 13:45 Attending Physician Racheal Miller DO PCP Garrett Acharya MD Referring Physician Date of Admission May 30, 2018 at 12:10 Home Medications & Allergies Home Medications Reviewed patient Home Medication Reconciliation performed by pharmacy medication reconciliations case technician and/or nursing. Patients Allergies have been reviewed. Allergies Allergies Coded Allergies Penicillins (Verified Allergy, Mild, Pt has received Ceftriaxone in the past w /o issue, 05/28/18) Past Lzohvvy-Ejegcb-Knubin Hx Past Med/Social Hx: Reviewed Nursing Past Med/Soc Hx, Reviewed and Corrections made Patient Social History Marrital Status: single Employed/Student: retired (25 yrs [employer]) Alcohol Use: Denies Use Recreational Drug Use: No Smoking Status: Never a Smoker Physical Abuse Screen: No Sexual Abuse: No Recent Foreign Travel: No Contact w/other who traveled: No Recent Hopitalizations: No Recent Infectious Disease Expo: No Immunizations Up To Date Pediatric: Yes Seasonal Allergies Seasonal Allergies: No Past Medical History Surgeries: Abdominal, Appendectomy, Eye Surgery, Orthopedic Respiratory: Pulmonary Embolism Cardiac: Deep Vein Thrombosis Genitourinary: Bladder Infection OAB Gastrointestinal: Gastroesophageal Reflux, Diverticulosis, Hiatal Hernia Musculoskeletal: Arthritis, Fractures HEENT: Cataract Loss of Vision: Denies Hearing Impairment: Hard of Hearing Psychosocial: Anxiety, Depression History of Blood Disorders: Yes (DVT/PE) Family History Cardiovascular disease G8 BROTHER Hypertension G8 BROTHER Myocardial infarction 19 MOTHER Respiratory disorder 19 FATHER G8 BROTHER No Pertinent Family Hx Review of Systems Constitutional: see HPI, dizziness, malaise, weakness EENTM: no symptoms reported Respiratory: no symptoms reported Cardiovascular: other (left rib fracture pain) Genitourinary: no symptoms reported Musculoskeletal: other (left arm pain and left knee pain) Skin: no symptoms reported Psychiatric/Neurological: No Symptoms Reported All Other Systems Reviewed Negative Unless Noted: Yes Physical Exam Exam Vital Signs Vital Signs Date Time Temp Pulse Resp B/P (MAP) Pulse Ox O2 Delivery O2 Flow Rate FiO2 05/30/18 13:07 99.0 70 20 125/85 (98) 96 Room Air Capillary Refill : General Appearance: No Apparent Distress, WD/WN, Chronically ill, Obese, Other (ecchymosis bilateral periorbital region) HEENT: PERRL/EOMI (conjunctiva injected), Normal ENT Inspection, Pharynx Normal , Moist Mucous Membranes Neck: Full Range of Motion, Normal Inspection, Non Tender, Supple Respiratory: Chest Non Tender, Lungs Clear, Normal Breath Sounds, No Accessory Muscle Use, No Respiratory Distress, Other (pain on deep breath left side ribs) Cardiovascular: Regular Rate, Rhythm, No Edema, No Gallop, No JVD, No Murmur Gastrointestinal: Normal Bowel Sounds, No Organomegaly, No Pulsatile Mass, Non Tender, Soft Back: Normal Inspection, No CVA Tenderness, No Vertebral Tenderness Extremity: Normal Capillary Refill, Normal Inspection, Normal Range of Motion ( left lower arm in brace limited ROM due to pain, left knee decreased ROM), Non Tender, No Calf Tenderness, No Pedal Edema Neurologic/Psychiatric: Alert, Oriented x3, No Motor/Sensory Deficits, Normal Mood/Affect Skin: Normal Color, Warm/Dry Lymphatic: No Adenopathy Results Results/Procedures Labs Patient resulted labs reviewed. Assessment/Plan Assessment and Plan Assess & Plan/Chief Complaint Assessment: Traumatic brain injury Fall Anticoagulation long-term for hypercoagulable state with history of PE and DVT Facial ecchymosis from fall Left radius fracture placed in brace Left knee hematoma Left rib fractures Overactive bladder Depression Status post constipation now resolved Plan: Home meds Coumadin restarted Pain control Follow up on x-rays Incentive spirometer Intensive therapies Will return to her home and live independently alone upon discharge (1) TBI (traumatic brain injury) Post Admission Physician Asses Date seen by provider: May 30, 2018 Time seen by provider: 14:00 The preadmission screen agrees with the post admission assessment that the patient is a good candidate for inpatient rehabilitation. The patient will have a comprehensive program of inpatient rehabilitation with a goal of maximizing level of functional independence prior to discharge home alone. The patient will have PT/OT ninety minutes per day, each discipline, five days a week for gait, strengthening, conditioning, balance, ADLs, any patient/family/caregiver training as necessary. Speech therapy to do cognitive assessment and treat as indicated. Rehabilitation nursing to assist with bowel, bladder, skin, wound care, medication administration, pain management. Mechanic Chief to assist with discharge planning, community reentry. SCD's for DVT prophylaxis. She appears to be well motivated to participate in three hours of therapy a day. She should be able to tolerate three hours of therapy a day from a medical standpoint. She should benefit from the three hours of therapy a day. She has a reasonable discharge plan, reasonable discharge rehabilitation goals and a supportive family. She has various comorbidities that need to be closely monitored with medications and treatments adjusted on a daily basis as needed. These include: Barriers to discharge for this patient who had been independent prior to this are for her to be modified independent to supervision for ADLs and mobility skills prior to discharge home with [family], so as to lessen the burden of the caregivers. Risks for this patient include: 1. Fall 2. Fracture 3. DVT 4. Pulmonary embolism 5. Wound infection 6. Skin breakdown 7. Contractures 8. Poorly controlled pain 9. Urinary retention 10. UTI 11. Respiratory infection 12. Aspiration Estimated Length of Stay: 10 days Prognosis: Rehab prognosis appears good for goal of discharge home alone modified independent to supervision for ADLs and mobility skills. General: Alert, Oriented X3, Cooperative, No Acute Distress, Other (bilateral ecchymosis under eyes) HEENT: Atraumatic, PERRLA Neck: Supple, No JVD, No Thyromegaly, +2 Carotid Pulse No Bruit, No LAD Lungs: Clear to Auscultation, Normal Air Movement Heart: Regular Rate, Normal S1, Normal S2, No Murmurs Abdomen: Normal Bowel Sounds, Soft, No Tenderness, No Hepatosplenomegaly, No Masses Extremities: No Clubbing, No Cyanosis, No Edema, Normal Pulses, No Tenderness/ Swelling Skin: No Rashes, No Breakdown, No Significant Lesion Neuro: Other (limited ROM left leg due to knee pain and left lower arm in brace ) Psych/Mental Status: Mental Status NL, Mood NL RACHEAL MILLER DO May 30, 2018 13:45
[2018-05-30] MEDS: HYDROcodone/APAP 5 MG/325 MG (LORTAB) TAB PO PRN ×2 (15:36→20:12)
[2018-05-30] MEDS ORDERED: FLU QUADRIvalent (5+ YOA) 2018-2019 (AFLURIA) 0.5 ML IM ONE (16:30)
[2018-05-30] MEDS: warFARin 5 MG (COUMADIN) TAB PO SCH (18:01)
[2018-05-30] MEDS: POLYETHYLENE GLYCOL 17 GM (MIRALAX) PACK PO PRN (18:01)
--- NOTE | 2018-05-30 18:02 | NUR ---
Pt only wanted one packet of miralax, stated she did not want to go the other way
[2018-05-30] MEDS: OXYBUTYNIN (DITROPAN) 5 MG TAB PO SCH (20:10)
[2018-05-30] MEDS: CEFDINIR 300 MG (OMNICEF) CAP PO SCH (20:10)
[2018-05-30] MEDS: PATCH REMOVAL TP SCH (20:13)
[2018-05-31 06:35] VITALS: BP 113/54
[2018-05-31] MEDS: HYDROcodone/APAP 5 MG/325 MG (LORTAB) TAB PO PRN ×2 (06:37→21:09)
--- NOTE | 2018-05-31 08:20 | PM&R Progress Note ---
Subjective HPI/CC On Admission Date Seen by Provider: May 31, 2018 Time Seen by Provider: 08:30 CC: Debility following fall with TBI with large frontal scalp hematoma left knee hematoma without fracture and left wrist nondisplaced radial styloid fx HPI: This is an 82-year-old white female who has been a patient in inpatient rehabilitation unit at [facility] 10 months ago who is a patient of Dr. Acharya 'bon who sustained a traumatic brain injury when she fell on her face after she missed a step heading into a local restaurant. She is maintained on Coumadin long-term due to hypercoagulable state with history of blood clots in the past. She was placed on the trauma service along with multiple consultants who placed her left wrist in a brace and monitor closely over the last 3 days with pain management and ambulation as much as possible with the use of incentive spirometer. Narcotic bowel is now resolved and she is currently eating lunch but has pain in her left ribs and has a history of for fractures in the past. She lives at home alone and will return to home to live independently after discharge from the rehabilitation facility. Subjective/Events-last exam Pt doing well and having no issues except confusion after pain medication was taken yesterday night Reports pain is much improved in left ribs Will check labs including an INR tomorrow Bowels are moving well on regimen Starting intensive therapies today CXR reveals chronic rib fractures Review of Systems General: Fatigue Neurological: Confusion Objective Exam Vital Signs Vital Signs Date Time Temp Pulse Resp B/P (MAP) Pulse Ox O2 Delivery O2 Flow Rate FiO2 05/31/18 09:18 Room Air 05/31/18 06:35 98.4 79 20 113/54 (73) 92 Capillary Refill : Less Than 3 Seconds General Appearance: No Apparent Distress, WD/WN, Chronically ill, Obese, Other (ecchymosis bilateral periorbital region) HEENT: PERRL/EOMI (conjunctiva injected), Normal ENT Inspection, Pharynx Normal , Moist Mucous Membranes Neck: Full Range of Motion, Normal Inspection, Non Tender, Supple Respiratory: Chest Non Tender, Lungs Clear, Normal Breath Sounds, No Accessory Muscle Use, No Respiratory Distress, Other (pain on deep breath left side ribs) Cardiovascular: Regular Rate, Rhythm, No Edema, No Gallop, No JVD, No Murmur Gastrointestinal: Normal Bowel Sounds, No Organomegaly, No Pulsatile Mass, Non Tender, Soft Back: Normal Inspection, No CVA Tenderness, No Vertebral Tenderness Extremity: Normal Capillary Refill, Normal Inspection, Normal Range of Motion ( left lower arm in brace limited ROM due to pain, left knee decreased ROM), Non Tender, No Calf Tenderness, No Pedal Edema Neurologic/Psychiatric: Alert, Oriented x3, No Motor/Sensory Deficits, Normal Mood/Affect Skin: Normal Color, Warm/Dry Lymphatic: No Adenopathy Results/Procedures Lab Patient resulted labs reviewed. Assessment/Plan Assessment and Plan Assess & Plan/Chief Complaint Assessment: Traumatic brain injury Fall Anticoagulation long-term for hypercoagulable state with history of PE and DVT Facial ecchymosis from fall Left radius fracture placed in brace Left knee hematoma Left rib fractures Overactive bladder Depression Status post constipation now resolved Plan: Home meds Coumadin restarted Pain control Rib xrays reviewed Incentive spirometer Intensive therapies Will return to her home and live independently alone upon discharge (1) TBI (traumatic brain injury) (2) Rib fractures (3) Confusion (4) Debility (5) Radial styloid fracture (6) Anticoagulated (7) Open head injury (8) Nausea (9) Altered mental status Clinical Quality Measures DVT/VTE Risk/Contraindication: Risk Factor Score Per Nursin RFS Level Per Nursing on Admit: 4+=Very High JOSEY MEJIA DO May 31, 2018 08:20
[2018-05-31] MEDS: OXYBUTYNIN (DITROPAN) 5 MG TAB PO SCH ×2 (08:30→21:04)
[2018-05-31] MEDS: CEFDINIR 300 MG (OMNICEF) CAP PO SCH ×2 (08:30→21:04)
[2018-05-31] MEDS: LIDOCAINE 4% (SALONPAS) PATCH TOP SCH (08:33)
[2018-05-31] MEDS: VITAMIN D3 1,000 UNITS (CHOLECALCIFEROL) TABLET PO SCH (08:33)
--- NOTE | 2018-05-31 10:12 | Physical Therapy Evaluation ---
PT Evaluation-General Medical Diagnosis Admission Date May 30, 2018 at 12:10 Medical Diagnosis: Debility Onset Date: May 30, 2018 Therapy Diagnosis Therapy Diagnosis: weakness; abn gait Height/Weight Height (Feet): 5 Height (Inches): 0.00 Weight (Pounds): 225 Weight (Ounces): 0.0 Precautions Precautions/Isolations: Fall Prevention, Standard Precautions Weight Bear Status Right Lower Extremity: Right Full Weight Bearing Left Lower Extremity: Left Full Weight Bearing NWB left UE Referral Physician: Paul Reason for Referral: Evaluation/Treatment Medical History Pertinent Medical History: Arthritis, GERD Additional Medical History B TKR, [place], PE, DVT. Current History Pt sustained a fall while walking outdoors on 05/28/18. She fell on cement resulting in a left radial stylus fx, closed head injury, rib fractures and facial hematoma. Pt admitted to ARU for continued skilled therapy intervention. Reviewed History: Yes Social History Home: Apartment ([place]) Current Living Status: Alone Entry Into Home: Level Entry Prior/Core FIM Prior Level of Function Therapy Code Descriptions/Definitions Functional [place] Measure: 0=Not Assessed/NA 4=Minimal Assistance 1=Total Assistance 5=Supervision or Setup 2=Maximal Assistance 6=Modified [place] 3=Moderate Assistance 7=Complete [place] Therapy Quality Codes: 6 Independent with activity with or without an assistive device 5 Patient requires set up or clean up by helper. Patient completes activity by themselves 4 Supervision or touching assist (CGA). [place] provide cues , steadying assist 3 The helper provides less than half the effort to complete the activity 2 The helper provides more than half the effort to complete the activity 1 Dependent. The helper does all the effort to complete an activity 7 Patient refused to complete or attempt activity 9 The patient did not perform the activity before the current illness or injury 88 Not attempted due to Medical conditions or safety concerns Functional Abilities and Goals: Independent: Patient completed the activities by him/herself, with or without an assistive device, with no assistance from a helper. Needed Some Help: Patient needed partial assistance from another person to complete activities. Dependent: A helper completed the activities for the patient. Unknown: Not Applicable: Bed Mobility: 7 Transfers (B,C,W/C) (FIM): 7 Gait: 6 (indep to mod indep; uses a cane as needed) Stairs: 88 Indoor Mobility (Ambulation): Independent Stairs: Independent Prior Device Use: pt has a quad cane for use as needed pt lives alone and is indep with all self care. she still drives. PT Evaluation-Current Subjective pt agreeable to PT. Acknowledges that she has been here before and she knows what to expect with therapy. Reports her ribs on the left are "sore"; she did not provide a numerical rating but reports she has taken pain meds. Pt/Family Goals Her goal is to return to her apartment when able. Objective Patient Orientation: Person, Place, Time, Situation Problem Solving: Good ROM/Strength ROM Lower Extremities WFL Strenght Lower Extremities B LE strength is grossly 4-/5 throughout with decreased activity tolerance. Integumentary/Posture Integumentary refer to nursing notes. Bowel Incontinence: No Bladder Incontinence: Yes Posture slightly rounded shoulders and forward head. Neuromuscular (Tone, Coordination, Reflexes) intact and functional Sensory Vision: Neglect Left Hearing: Functional Hand Dominance: Right Sensation Right Lower Extremit: Intact Sensation Left Lower Extremity: Intact Transfers Therapy Code Descriptions/Definitions Functional [place] Measure: 0=Not Assessed/NA 4=Minimal Assistance 1=Total Assistance 5=Supervision or Setup 2=Maximal Assistance 6=Modified [place] 3=Moderate Assistance 7=Complete [place] Therapy Quality Codes: 6 Independent with activity with or without an assistive device 5 Patient requires set up or clean up by helper. Patient completes activity by themselves 4 Supervision or touching assist (CGA). [place] provide cues , steadying assist 3 The helper provides less than half the effort to complete the activity 2 The helper provides more than half the effort to complete the activity 1 Dependent. The helper does all the effort to complete an activity 7 Patient refused to complete or attempt activity 9 The patient did not perform the activity before the current illness or injury 88 Not attempted due to Medical conditions or safety concerns Transfers (B, C, W/C) (FIM): 2 Scootin Rollin Roll Left to Right (QC): 3 Supine to/from Sit: 3 (asssit with trunk and legs; HOB elevated and uses bedrail with right UE) Sit to/from Stand: 4 (Min assist with skilled cues to sequence. ) Sit to Lying (QC): 3 Lying to Sitting/Side of Bed(Q: 3 Sit to Stand (QC): 4 Chair/Xbv-nh-Imptl Xfer(QC): 4 Car Transfer (QC): 3 (assist with both legs and to turn in the seat) Pt takes extra time and movement that involves the torso is painful. Gait Does the Patient Walk?: Yes Mode of Locomotion: Walk Anticipated Mode of Locomotion: Walk Gait (FIM): 2 Distance (FIM): 2=722-44 ft Walk 10 feet (QC): 4 Walk 50 ft with 2 Turns(QC): 4 Walk 150 ft (QC): 88 (unable to walk this distance yet) Walking 10ft/uneven surface-QC: 3 (unsteady and needs extra support for balacne. ) Distance: 50 ft Gait Level of Assist: 4 Gait Assistive Device: Cane Small Base Quad Comments/Gait Description slow gait with wide AIMEE, unsteady with decreased arm swing left. Wheelchair Training Does the Pt Use a Wheelchair?: No Stairs Stairs (FIM): 0 #of Steps: 0 1 Step (curb) (QC): 88 (unsafe to attempt due to fall risk) 4 Steps (QC): 88 12 Steps (QC): 88 If not tested on admit;explain unsafe to attempt due to fall risk. Balance Sitting Static: Good Sitting Dynamic: Good Standing Static: Fair Standing Dynamic: Fair Picking up an Object (QC): 88 (unsafe to attempt) Treatment Safety education. Toileted with min assist for transfer on/off the toilet and max assist darya care; assist with undergarments. Min assist to stand at the sink to wash her hands. Gait training with use of cane with instruction in proper use and safety. Assessment/Needs Pt presents post fall with rib fractures that are painful that make transfers difficult; left UE Fx that limits WB and decreased functional strength, balance and activity tolerance that all impair her ability to mobilize on her own and limit her functional safety. She will benefit from skilled PT to address her deficits to allow her to return home as before. Rehab Potential: Good PT Short Term Goals Short Term Goals Time Frame: Jun 07, 2018 Transfers (B,C,W/C) (FIM): 5 Gait (FIM): 2 Distance (FIM): 3=150 ft Gait Assistive Device: Cane Small Base Quad PT Assisted Goals Assisted Goals PT Pension Agent Goals Time Frame: Jun 23, 2018 Transfers (B,C,W/C) (FIM): 6 Sit to Lying (QC): 6 Lying-Sitting on Side/Bed(QC): 6 Sit to Stand (QC): 6 Roll Left to Right (QC): 6 Chair/Egq-nr-Hvnwo Xfer(QC): 6 Car Transfer (QC): 6 Does the Patient Walk: Yes Gait (FIM): 6 Gait distance (FIM): 3=150 ft Walk 10 feet (QC): 6 Walk 10ft-Uneven Surface(QC): 6 Walk 50ft with 2 Turns (QC): 6 Walk 150 ft (QC): 6 Gait Assistive Device: Cane Small Base Quad Does the Pt use WC or Scooter?: No Stairs (FIM): 5 # of Steps: 4 1 Step (curb) (QC): 6 4 Steps (QC): 6 12 Steps (QC): 88 Picking up an Object (QC): 88 pt to be mod indep with all mobility for indep in her home alone. PT Plan Problem List Problem List: Activity Tolerance, Functional Strength, Safety, Balance, Gait, Transfer, Bed Mobility Treatment/Plan Treatment Plan: Continue Plan of Care Treatment Plan: Bed Mobility, Education, Functional Activity C[place], Functional Strength, Group Therapy, Gait, Safety, Therapeutic Exercise, Transfers Treatment Duration: Jun 23, 2018 Frequency: At least 5 of 7 days/Wk (IRF) Estimated Hrs Per Day: 1.5 hours per day Patient and/or Family Agrees t: Yes Safety Risks/Education Patient Education: Gait Training, Transfer Techniques, Safety Issues Teaching Recipient: Patient Teaching Methods: Demonstration, Discussion Response to Teaching: Reinforcement Needed Discharge Recommendations Therapy D/C Recommendations: Physical Therapy Home Care Time/GCodes Time In: 825 Time Out: 930 Total Billed Treatment Time: 65 Total Billed Treatment visit EVM 20 FA 45 PAULINO RAMÍREZ PT May 31, 2018 10:12
--- NOTE | 2018-05-31 11:44 | ST Cognitive Linguistic Eval ---
Speech Evaluation-General Medical Diagnosis Debility Onset Date: May 30, 2018 Therapy Diagnosis Therapy Diagnosis: Cognitive-Communication Precautions Precautions/Isolations: Fall Prevention, Standard Precautions Referral Referring Physician: Dr. Miller Reason for Referral: Evaluation/Treatment Medical History Pertinent Medical History: Arthritis, GERD Reviewed History: Yes Social History Current Living Status: Alone Speech PLF-Current Status Prior Level of Function Patient lived alone and was independent for all of her daily needs. Subjective Patient was pleasant and able to follow directions for the bedside evaluation. Language Eval: Auditory Comprehends Simple Yes/No Ques: Functional Indent/Objects Multiple [place]: Functional Ident/Pics in Multiple [place]: Functional Follows 1-Step Commands: Functional Follows Complex Directions: Functional Follows General Conversations: Functional Language Eval: Verbal Language Completes Spontaneous Greeting: Functional Produces Auto, Serial Info: Functional Imitates Simple Words/Phrases: Functional Word Finding: Functional Requests Basic Needs: Functional States Basic Personal Info: Functional Expresses Complex Ideas: Functional Objective Cognitive Domain Attention: WNL Memory: WNL Problem Solving: Functional Executive Functions: WNL Visuospatial Skills: WNL Clock Drawing Severity Rating: WNL Objective Formal/Standardized Tests [place] Cognitive Assessment (MOCA) Results Visuospatial/Executive: 5/5, Namin/3, Memory: Immediate 5/5, Delayed 4/5, Attention: 6/6, Abstraction: 2/2, Orientation: 6/6 Oral Motor/Speech Production Within Functional Limits Impression Patient is a pleasant 82 year old female who was admitted to the ARU secondary to injuries sustained in a fall on . The patient was given the MOCA at bedside with results in functional limits for all areas tested. Patient is not recommended for skilled ST services at this time. Communication/Social Cognition Comprehension: 7 Expression: 7 Social Interaction: 7 Problem Solvin Memory: 7 Speech Patient Assess Expression of Ideas/Wants: Expression (4) Understanding Verbal Content: Understands (4) Brief Interview-Mental Status: Yes Repetition of Three Words: Three (3) Temporal Orientation: Year: Correct (3) Temporal Orientation: Day: Correct (1) Recall : Wear to say "Sock": Yes, no cue required (2) Recall : Color: Yes, no cue required (2) Recall : Bed: Yes, no cue required (2) Memory/Recall Ability: Current season, Location of own room, Staff names and faces, That he or she is in a hsp/hsp unit Speech-Plan Patient/Family Goals Patient/Family Goals: The patient plans to return home post rehab. Treatment Plan Speech Therapy Treatment Plan: Discontinue ST The patient does not exhibit cognitive deficits at this time. Treatment Duration: May 31, 2018 Frequency: 1 time per week Estimated Hrs Per Day: .25 hour per day Rehab Potential: Good Barriers to Learning: None identified Pt/Family Agrees to Plan: Yes Safety Risks/Education Teaching Recipient: Patient Teaching Methods: Discussion Response to Teaching: Verbalize Understanding Time Speech Therapy Time In: 11:00 Speech Therapy Time Out: 11:15 Total Billed Time: 15 Billed Treatment Time 1, SPSNDCOMP TOBI Bey May 31, 2018 11:44
--- NOTE | 2018-05-31 12:00 | Occupational Therapy Eval ---
OT Evaluation-General/PLF Medical Diagnosis Admission Date May 30, 2018 at 12:10 Medical Diagnosis: Debility Onset Date: May 30, 2018 Therapy Diagnosis Therapy Diagnosis: Decreased self care skills Height/Weight Height (Feet): 5 Height (Inches): 0.00 Weight (Pounds): 225 Weight (Ounces): 0.0 Precautions Precautions/Isolations: Fall Prevention, Standard Precautions Safety Interventions: Bed Exit Alarm Referral Physician: Paul Medical History Pertinent Medical History: Arthritis, GERD Additional Medical History bilateral TKA, DVT, diverticulosis, AUGUSTINE, anxiety, depression Current History Pt had a fall resulting in forehead hematoma and left wrist non-displaced radial styloid fracture Reviewed History: Yes Social History Home: Apartment ([place]) Current Living Status: Alone Entry Into Home: Level Entry ADL-Prior Level of Function Therapy Code Descriptions/Definitions Functional [place] Measure: 0=Not Assessed/NA 4=Minimal Assistance 1=Total Assistance 5=Supervision or Setup 2=Maximal Assistance 6=Modified [place] 3=Moderate Assistance 7=Complete [place] Therapy Quality Codes: 6 Independent with activity with or without an assistive device 5 Patient requires set up or clean up by helper. Patient completes activity by themselves 4 Supervision or touching assist (CGA). [place] provide cues , steadying assist 3 The helper provides less than half the effort to complete the activity 2 The helper provides more than half the effort to complete the activity 1 Dependent. The helper does all the effort to complete an activity 7 Patient refused to complete or attempt activity 9 The patient did not perform the activity before the current illness or injury 88 Not attempted due to Medical conditions or safety concerns Functional Abilities and Goals: Independent: Patient completed the activities by him/herself, with or without an assistive device, with no assistance from a helper. Needed Some Help: Patient needed partial assistance from another person to complete activities. Dependent: A helper completed the activities for the patient. Unknown: Not Applicable: ADL PLOF Comments Pt reports being independent with self care prior to admission. Does not use any assistive devices for mobility. Pt states she does her own cooking and cleaning. Self Care: Independent Functional Cognition: Independent Drive Self: Yes OT Current Status Subjective Pt sitting in chair, agrees to treatment. Pt reports 6/10 pain in left ribs and left knee. Mental Status/Objective Patient Orientation: Person, Place, Situation Current Glasses/Contacts: Yes Hearing Aids: No Dentures/Partials: No Hand Dominance: Right Upper Extremity ROM Right UE grossly functional left UE: decreased shoulder ROM secondary to prior injury. Left wrist/hand is splinted secondary to fracture. Upper Extremity Coordination impaired left ADL-Treatment ADL-Current Pt declined to shower today,but would like sponge bath. Pt requires assist to wash right arm, but is able to wash other upper body areas. Minimal assistance for balance while washing lower body. Don pullover shirt with minimal assistance. Pt able to start underwear over feet. Stood with minimal assistance during pant hike. Pt has some difficulty pulling up over left hip, requires increased time and minimal assistance to complete. Pt doffed socks with SBA. Able to don socks with increased time. Pt combed hair with set up. Pt requires increased time for bathing and dressing tasks. Pt sitting in chair with needs met after session. Bathing (FIM): 4 Shower/Bathe Self (QC): 3 Upper Body Dressing (FIM): 4 Upper Body Dressing (QC): 3 Lower Body Dressing (FIM): 4 Lower Body Dressing (QC): 3 On/Off Footwear (QC): 4 Education OT Patient Education: Rehab process Teaching Recipient: Patient Teaching Methods: Discussion Response to Teaching: Verbalize Understanding OT Short Term Goals Short Term Goals Time Frame: Jun 07, 2018 Upper Body Dressing(FIM): 5 Lower Body Dressing(FIM): 5 Toileting(FIM): 5 Toilet/Commode Transfer(FIM): 5 Additional Short Term Goals: 1-Demonstrate ADL Tasks, 2-Verbalize Understanding , 3-ImproveStrength/Cintia 1=Demonstrate adherence to instructed precautions during ADL tasks. 2=Patient will verbalize/demonstrate understanding of assistive devices/ modifications for ADL. 3=Patient will improve strength/tolerance for activity to enable patient to perform ADL's. OT Longterm Goals Delivery And Mail Sorter Goals Time Frame: Jun 21, 2018 Eating (FIM): 6 Eating (QC): 6 Groomin Oral Hygiene (QC): 6 Bathing(FIM): 6 Shower/Bathe Self (QC): 6 Upper Body Dressing(FIM): 6 Upper Body Dressing (QC): 6 Lower Body Dressing(FIM): 6 Lower Body Dressing (QC): 6 On/Off Footwear (QC): 6 Toileting(FIM): 6 Toileting Hygiene (QC): 6 Toilet/Commode Transfer(FIM): 6 Toilet/Commode Transfer (QC): 6 Shower Transfer(FIM): 6 Additional Goals: 1-Demonstrate ADL Tasks, 2-Verbalize Understanding, 3- ImproveStrength/Cintia 1=Demonstrate adherence to instructed precautions during ADL tasks. 2=Patient will verbalize/demonstrate understanding of assistive devices/ modifications for ADL. 3=Patient will improve strength/tolerance for activity to enable patient to perform ADL's. OT Education/Plan Problem List/Assessment Assessment: Decreased Activ Tolerance, Decreased UE Strength, Dependent Transfers, Impaired I ADL's, Impaired Self-Care Skills Pt demonstrates decreased ADL functioning, mobility, strength, and activity tolerance. Pt to benefit from skilled OT intervention for ADL training, transfers, strengthening, and home safety education to increase level of independence and allow safe return home. Discharge Recommendations Plan/Recommendations: Continue POC Treatment Plan/Plan of Care Treatment,Training & Education: Yes Patient would benefit from OT for education, treatment and training to promote independence in ADL's, mobility, safety and/or upper extremity function for ADL' s. Plan of Care: ADL Retraining, Functional Mobility, Group Exercise/Act as Ind, UE Funct Exercise/Act Treatment Duration: Jun 21, 2018 Frequency: At least 5 of 7 days/Wk (IRF) Estimated Hrs Per Day: 1.5 hours per day Agreement: Yes Rehab Potential: Good Time/GCodes Start Time: 09:30 Stop Time: 10:30 Total Time Billed (hr/min): 60 Billed Treatment Time 1 visit, EVM(15minutes), ADLx3(45minutes) VANNA BRAGG OT May 31, 2018 12:00
--- NOTE | 2018-05-31 12:35 | Occupational Ther Daily Note ---
OT Current Status-Daily Note Subjective Pt sitting in chair, agreeable to therapy. Pt reports 3/10 pain in left ribs Mental Status/Objective Therapy Code Descriptions/Definitions Functional [place] Measure: 0=Not Assessed/NA 4=Minimal Assistance 1=Total Assistance 5=Supervision or Setup 2=Maximal Assistance 6=Modified [place] 3=Moderate Assistance 7=Complete [place] ADL-Treatment Pt sit to stand with minimal assistance from chair. Gait to restroom with cane. Pt stood at sink to complete oral care. Pt has difficulty putting toothpaste on toothbrush, but is able to complete with increased time. Pt then brushed teeth with SBA. Pt demonstrated ability to transfer to toilet with CGA. Stood from toilet with SBA using grab bar. Gait back to chair with cane with CGA. Pt performed sit to stand x5 reps to increase safety for transfers. Pt required minimal assistance to complete. Assisted pt to order lunch. Pt sitting in chair with needs met after session. Therapy Code Descriptions/Definitions Functional [place] Measure: 0=Not Assessed/NA 4=Minimal Assistance 1=Total Assistance 5=Supervision or Setup 2=Maximal Assistance 6=Modified [place] 3=Moderate Assistance 7=Complete [place] Therapy Quality Codes: 6 Independent with activity with or without an assistive device 5 Patient requires set up or clean up by helper. Patient completes activity by themselves 4 Supervision or touching assist (CGA). [place] provide cues , steadying assist 3 The helper provides less than half the effort to complete the activity 2 The helper provides more than half the effort to complete the activity 1 Dependent. The helper does all the effort to complete an activity 7 Patient refused to complete or attempt activity 9 The patient did not perform the activity before the current illness or injury 88 Not attempted due to Medical conditions or safety concerns Eating (FIM): 5 (Pt reports feeding self after set up.) Eating (QC): 5 Grooming (FIM): 5 Oral Hygiene (QC): 4 Toilet/Commode Transfer (FIM): 4 Toilet Transfer (QC): 4 OT Short Term Goals Short Term Goals Time Frame: Jun 07, 2018 Upper Body Dressing(FIM): 5 Lower Body Dressing(FIM): 5 Toileting(FIM): 5 Toilet/Commode Transfer(FIM): 5 Additional Short Term Goals: 1-Demonstrate ADL Tasks, 2-Verbalize Understanding , 3-ImproveStrength/Cintia 1=Demonstrate adherence to instructed precautions during ADL tasks. 2=Patient will verbalize/demonstrate understanding of assistive devices/ modifications for ADL. 3=Patient will improve strength/tolerance for activity to enable patient to perform ADL's. OT Ply Bander Goals Correction Goals Time Frame: Jun 21, 2018 Eating (FIM): 6 Eating (QC): 6 Groomin Oral Hygiene (QC): 6 Bathing(FIM): 6 Shower/Bathe Self (QC): 6 Upper Body Dressing(FIM): 6 Upper Body Dressing (QC): 6 Lower Body Dressing(FIM): 6 Lower Body Dressing (QC): 6 On/Off Footwear (QC): 6 Toileting(FIM): 6 Toileting Hygiene (QC): 6 Toilet/Commode Transfer(FIM): 6 Toilet/Commode Transfer (QC): 6 Shower Transfer(FIM): 6 Additional Goals: 1-Demonstrate ADL Tasks, 2-Verbalize Understanding, 3- ImproveStrength/Cintia 1=Demonstrate adherence to instructed precautions during ADL tasks. 2=Patient will verbalize/demonstrate understanding of assistive devices/ modifications for ADL. 3=Patient will improve strength/tolerance for activity to enable patient to perform ADL's. OT Education/Plan Discharge Recommendations Plan/Recommendations: Continue POC Treatment Plan/Plan of Care Patient would benefit from OT for education, treatment and training to promote independence in ADL's, mobility, safety and/or upper extremity function for ADL' s. Plan of Care: ADL Retraining, Functional Mobility, Group Exercise/Act as Ind, UE Funct Exercise/Act Treatment Duration: Jun 21, 2018 Frequency: At least 5 of 7 days/Wk (IRF) Estimated Hrs Per Day: 1.5 hours per day Agreement: Yes Rehab Potential: Good Time/GCodes Start Time: 11:15 Stop Time: 11:45 Total Time Billed (hr/min): 30 Billed Treatment Time 1 visit, ADL(20minutes), FA(10minutes) VANNA BRAGG OT May 31, 2018 12:35
--- NOTE | 2018-05-31 12:58 | Individualized Plan of Care ---
Individualized Plan of Care Rehab Nursing IPOC Order Admission Date May 30, 2018 at 12:10 Current Orders Orders Admission Order(Inpt,Obs,Sdc) (05/30/18 10:00) Wood Crafter-Inpt Rehab Con (05/29/18 14:52) Rehab Nursing Orders-Ipoc (05/29/18 14:52) Physical Therapy Rehab Orders (05/29/18 14:52) Occupational Therapy Rehab Ord (05/29/18 14:52) Speech Therapy Rehab Orders (05/29/18 14:52) Precautions (Aru) (05/29/18 14:52) Weekly Weight (Lbs) WEEK (05/29/18 14:52) Rehab-Intensity Of Therapy (05/29/18 14:52) Initiate Admission Nursing Pro .admission (05/29/18 14:52) Acetaminophen Tablet (Tylenol Tablet) (05/29/18 15:00) Alprazolam Tablet (Xanax Tablet) (05/29/18 15:00) Calcium Carbonate Chew Tablet (Antacid C (05/29/18 15:00) Diphenhydramine Tablet (Benadryl Tablet) (05/29/18 15:00) Docusate Sodium Capsule (Colace Capsule) (05/29/18 15:00) Hydrocodone/Apap 5/325 Tablet (Lortab 5 (05/29/18 15:00) Loperamide Capsule (Imodium Capsule) (05/29/18 15:00) Melatonin Tablet (Melatonin Tablet) (05/29/18 15:00) Polyethylene Glycol Powder Pkt (Miralax (05/29/18 15:00) Ondansetron Oral Dissolve Tab (Zofran (05/29/18 15:00) Admission Arrival Bed Request (05/30/18 12:10) General/Regular (05/30/18 Lunch) Tramadol Tablet (Ultram Tablet) (05/30/18 13:45) Citalopram Tablet (Celexa Tablet) (05/31/18 09:00) Cholecalciferol Capsule/Tablet (Vitamin (05/31/18 09:00) Warfarin Tablet (Coumadin Tablet) (05/30/18 18:00) Oxybutynin Tablet (Ditropan Tablet) (05/30/18 21:00) Lidocaine 4% Patch (Salonpas 4% Patch) (05/31/18 09:00) Cefdinir Capsule (Omnicef Capsule) (05/30/18 21:00) Patch Removal (Patch Removal) (05/30/18 21:00) Influenza Quad (5+Yoa) 2017- (Afluria (05/30/18 16:30) Nursing Communication (Order) UD (05/31/18 07:00) Cbc With Automated Diff (06/01/18 06:00) Comprehensive Metabolic Panel (06/01/18 06:00) Protime With Inr (06/01/18 06:00) Patient Visit (05/31/18 ) Speech Sound Lang Comp (05/31/18 ) Rehab Nursing Orders: Ongoing Assess. of Function Status Intensity of Therapy to be met Patient to be seen: Min.3h per day/5 of 7d PT IPOC Problem List: Activity Tolerance, Functional Strength, Safety, Balance, Gait, Transfer, Bed Mobility Treatment Plan: Continue Plan of Care Bed Mobility, Education, Functional Activity Cintia, Functional Strength, Group Therapy, Gait, Safety, Therapeutic Exercise, Transfers Treatment Duration: Jun 23, 2018 Frequency: At least 5 of 7 days/Wk (IRF) Estimated Hrs Per Day: 1.5 hours per day OT IPOC Problems: Decreased Activ Tolerance, Decreased UE Strength, Dependent Transfers , Impaired I ADL's, Impaired Self-Care Skills OT Treatment, Training and Edu: Yes Plan of Care: ADL Retraining, Functional Mobility, Group Exercise/Act as Ind, UE Funct Exercise/Act Treatment Duration: Jun 21, 2018 Frequency: At least 5 of 7 days/Wk (IRF) Estimated Hrs Per Day: 1.[address] IPOC Speech Therapy Treatment Plan: Discontinue ST Treatment Duration: May 31, 2018 Frequency: 1 time per week Estimated Hrs Per Day: .25 hour per day Wood Crafter/Case Mgmt Wood Crafter/Case Managemen: Discharge Planning Dietitian/Concaver Dietitian/Concaver to monitor nutritional status and make changes and/or recommendations as needed and work with speech pathology on dietary upgrades as the occur. Physician IPOC Medical Issues being managed closely and that require the 24 hour availability of a physician: Anticoagulation monitoring along with fall risk assessment and rib fracture pain management with aggressive IS to minimize pneumonia Medical Issues: Bowel/Bladder Function, Falls Precautions, Fluid/Electrolyte/ Nutrition Balance, Pain Management Brief Synthesis of Preadmission Screen, Post-Admission Evaluation, and Therapy Evaluations: PT/OT will aggressively treat fall risks and ultimately return to independent living Medical Prognosis: Good Anticipated Length of Stay: 10 days JOSEY MEJIA DO May 31, 2018 12:58
--- NOTE | 2018-05-31 13:40 | Physical Therapy Daily Note ---
PT Daily Note-Current Subjective Pt. agrees to Rx. States she still has pain in left side at 6/10. Pt. also states her pain is improved after movement. Pain Numeric Pain Scale: 6 Location: Left Location Body Site: Chest (flank) Pain Description: Stabbing Appearance Pt. moans and gasps during Rx secondary to pain in left side Mental Status Patient Orientation: Normal For Age Transfers Therapy Code Descriptions/Definitions Functional [place] Measure: 0=Not Assessed/NA 4=Minimal Assistance 1=Total Assistance 5=Supervision or Setup 2=Maximal Assistance 6=Modified [place] 3=Moderate Assistance 7=Complete [place] Therapy Quality Codes: 6 Independent with activity with or without an assistive device 5 Patient requires set up or clean up by helper. Patient completes activity by themselves 4 Supervision or touching assist (CGA). [place] provide cues , steadying assist 3 The helper provides less than half the effort to complete the activity 2 The helper provides more than half the effort to complete the activity 1 Dependent. The helper does all the effort to complete an activity 7 Patient refused to complete or attempt activity 9 The patient did not perform the activity before the current illness or injury 88 Not attempted due to Medical conditions or safety concerns sup to sit mod to min assist .sit to stand SBA Weight Bearing Right Lower Extremity: Right Full Weight Bearing Left Lower Extremity: Left Full Weight Bearing NWB left UE Gait Training Gait Assistive Device: Cane Large Base Quad gait [id number], 30 ft x1 CGA, slow, short step length, standing rest periods occas Exercises Supine Ex: Ankle pumps, Quad Set, Rolling (painful), Glut sets, Heel Slides, Short Arc Quads, Straight leg raise, Hip abd/add Supine Reps: 15 Seated Therapy Exercises: Sit to stand, Long arc quads Seated Reps: 10 NuStep Minutes: 10 NuStep Workload: 1 Treatments toileted with assist for pants down and up , cleaned self indep Assessment Current Status: Good Progress pain inhibits function, pt. gives full effort PT Short Term Goals Short Term Goals Time Frame: Jun 07, 2018 Gait (FIM): 2 Distance (FIM): 3=150 ft Gait Assistive Device: Cane Small Base Quad PT Rigging Up Man Goals Rigging Up Man Goals PT Skilled Nursing Goals Time Frame: Jun 23, 2018 Transfers (B,C,W/C) (FIM): 6 Sit to Lying (QC): 6 Lying-Sitting on Side/Bed(QC): 6 Sit to Stand (QC): 6 Rollin Roll Left to Right (QC): 6 Chair/Heq-pd-Aybpm Xfer(QC): 6 Car Transfer (QC): 6 Does the Patient Walk: Yes Gait (FIM): 6 Gait distance (FIM): 3=150 ft Walk 10 feet (QC): 6 Walk 10ft-Uneven Surface(QC): 6 Walk 50ft with 2 Turns (QC): 6 Walk 150 ft (QC): 6 Gait Assistive Device: Cane Small Base Quad Does the Pt use WC or Scooter?: No Stairs (FIM): 5 # of Steps: 4 1 Step (curb) (QC): 6 4 Steps (QC): 6 12 Steps (QC): 88 Picking up an Object (QC): 88 PT Plan Treatment/Plan Treatment Plan: Continue Plan of Care Treatment Plan: Bed Mobility, Education, Functional Activity Cintia, Functional Strength, Group Therapy, Gait, Safety, Therapeutic Exercise, Transfers Treatment Duration: Jun 23, 2018 Frequency: At least 5 of 7 days/Wk (IRF) Estimated Hrs Per Day: 1.5 hours per day Patient and/or Family Agrees t: Yes Safety Risks/Education Patient Education: Gait Training, Transfer Techniques, Correct Positioning, Disease Process, Safety Issues Teaching Recipient: Patient Teaching Methods: Demonstration, Discussion Response to Teaching: Verbalize Understanding, Reinforcement Needed Time/GCodes Time In: 1250 Time Out: 1335 Total Billed Treatment Time: 45 Total Billed Treatment 1,EX20m,GT10m,FA15m G Codes Necessary: ZION Tomlinson PTA May 31, 2018 13:40
--- NOTE | 2018-05-31 15:00 | NUR ---
SCIENCE CONSULTANT met with patient to complete initial assessment. Patient was alert and oriented x4 and agreeable to assessment. Patient known to this SCIENCE CONSULTANT has patient previously completed ARU stay in August 2016 after sustaining a fall resulting in a closed head injury. Patient presents to ARU this admission from internal referral with similar injuries following another fall. Patient resides alone in an entry operator apartment at [place] in [place], [place]. The apartment is handicap accessible including a walker in shower. Patient possess a shower chair, quad cane and walker. Prior to fall, patient reports independence with ambulation and ADLs. Following a knee surgery a few years, completed by Dr. Montes, patient utilized the cane and walker, but has not needed this equipment since recovery. Patient continued to drive prior to fall and completed her own housekeeping and cooking. Patient identifies niece, Odette of [place], as primary contact ([phone]) and brotherDejan of [place] as a secondary contact ([phone]). Odette does not work and is the patients closest support. Verified PCP as Dr. Acharya. Patient has Medicare and [employer] supplement for insurance coverage, with prescription coverage, and utilizes [facility] for local pharmacy needs. SCIENCE CONSULTANT reviewed typical rehab length of stay and weekly team conferences with patient, she expressed no concerns. Patient open to [facility] or OP therapies at discharge, if needed. She previously utilized [facility] services and was pleased with this provider. SCIENCE CONSULTANT will follow for appropriate discharge needs.
[2018-05-31] MEDS: warFARin 5 MG (COUMADIN) TAB PO SCH (17:11)
[2018-05-31 17:25] VITALS: BP 116/67
[2018-05-31] MEDS: PATCH REMOVAL TP SCH (21:04)
[2018-06-01 05:40] LABS: BASOPHILS % (AUTO) 1 % (0-10); EOSINOPHILS # (AUTO) 0.2 10^3/uL (0.0-0.3); EOSINOPHILS % (AUTO) 5 % (0-10); HEMATOCRIT 33 % (35-52); HEMOGLOBIN 10.6 G/DL (11.5-16.0); LYMPHOCYTES # (AUTO) 1.2 X 10^3 (1.0-4.0); LYMPHOCYTES % (AUTO) 29 % (12-44); MEAN CORPUSCULAR HEMOGLOBIN 33 PG (25-34); MEAN CORPUSCULAR HGB CONC 32 G/DL (32-36); MEAN CORPUSCULAR VOLUME 100 FL (80-99); MEAN PLATELET VOLUME 9.9 FL (7.4-10.4); MONOCYTES # (AUTO) 0.5 X 10^3 (0.0-1.0); MONOCYTES % (AUTO) 11 % (0-12); NEUTROPHILS # (AUTO) 2.4 X 10^3 (1.8-7.8); NEUTROPHILS % (AUTO) 56 % (42-75); PLATELET COUNT 186 10^3/uL (130-400); RED CELL DISTRIBUTION WIDTH 13.6 % (10.0-14.5); WHITE BLOOD COUNT 4.3 10^3/uL (4.3-11.0)
[2018-06-01 05:51] LABS: INR 1.4 (0.8-1.4); PROTHROMBIN TIME PATIENT 17.3 SEC (12.2-14.7)
[2018-06-01 05:56] VITALS: BP 132/63
[2018-06-01 06:01] LABS: ALBUMIN 3.4 GM/DL (3.2-4.5); BILIRUBIN,TOTAL 1.3 MG/DL (0.1-1.0); CALCIUM 8.9 MG/DL (8.5-10.1); CREATININE SERUM 1.05 MG/DL (0.60-1.30); POTASSIUM 4.3 MMOL/L (3.6-5.0); TOTAL PROTEIN 6.2 GM/DL (6.4-8.2)
--- NOTE | 2018-06-01 08:27 | PM&R Progress Note ---
Subjective HPI/CC On Admission Date Seen by Provider: Jun 01, 2018 Time Seen by Provider: 08:15 CC: Debility following fall with TBI with large frontal scalp hematoma left knee hematoma without fracture and left wrist nondisplaced radial styloid fx HPI: This is an 82-year-old white female who has been a patient in inpatient rehabilitation unit at [facility] 10 months ago who is a patient of Dr. Acharya 's who sustained a traumatic brain injury when she fell on her face after she missed a step heading into a local restaurant. She is maintained on Coumadin long-term due to hypercoagulable state with history of blood clots in the past. She was placed on the trauma service along with multiple consultants who placed her left wrist in a brace and monitor closely over the last 3 days with pain management and ambulation as much as possible with the use of incentive spirometer. Narcotic bowel is now resolved and she is currently eating lunch but has pain in her left ribs and has a history of for fractures in the past. She lives at home alone and will return to home to live independently after discharge from the rehabilitation facility. Subjective/Events-last exam Pt doing well and obtaining good relief with the Lidocaine patch Reports pain is much improved in left ribs now INR 1.4 so will need Lovenox bridge and will check INR tomorrow and increase Coumadin 6mg daily Bowels are not moving well on regimen so will schedule Miralax and Lactulose BID Participating with intensive therapies Asked about Dr Acharya and we updated him on keeping him in the loop regarding her care Review of Systems General: Fatigue Objective Exam Vital Signs Vital Signs Date Time Temp Pulse Resp B/P (MAP) Pulse Ox O2 Delivery O2 Flow Rate FiO2 06/01/18 05:56 98.1 63 22 132/63 (86) 93 Room Air Capillary Refill : Less Than 3 Seconds General Appearance: No Apparent Distress, WD/WN, Chronically ill, Obese, Other (ecchymosis bilateral periorbital region) HEENT: PERRL/EOMI (conjunctiva injected), Normal ENT Inspection, Pharynx Normal , Moist Mucous Membranes Neck: Full Range of Motion, Normal Inspection, Non Tender, Supple Respiratory: Chest Non Tender, Lungs Clear, Normal Breath Sounds, No Accessory Muscle Use, No Respiratory Distress, Other (pain on deep breath left side ribs) Cardiovascular: Regular Rate, Rhythm, No Edema, No Gallop, No JVD, No Murmur Gastrointestinal: Normal Bowel Sounds, No Organomegaly, No Pulsatile Mass, Non Tender, Soft Back: Normal Inspection, No CVA Tenderness, No Vertebral Tenderness Extremity: Normal Capillary Refill, Normal Inspection, Normal Range of Motion ( left lower arm in brace limited ROM due to pain, left knee decreased ROM), Non Tender, No Calf Tenderness, No Pedal Edema Neurologic/Psychiatric: Alert, Oriented x3, No Motor/Sensory Deficits, Normal Mood/Affect Skin: Normal Color, Warm/Dry Lymphatic: No Adenopathy Results/Procedures Lab Laboratory Tests 06/01/18 04:50 Patient resulted labs reviewed. Assessment/Plan Assessment and Plan Assess & Plan/Chief Complaint Assessment: Traumatic brain injury Fall Anticoagulation long-term for hypercoagulable state with history of PE and DVT Facial ecchymosis from fall Left radius fracture placed in brace Left knee hematoma Left rib fractures Overactive bladder Depression Status post constipation still not back to normal per patient Plan: Home meds Coumadin increased to 6mg daily and Lovenox bridge ordered Pain control with Lidocaine patch Incentive spirometer Intensive therapies Bowel regimen increased Will return to her home and live independently alone upon discharge (1) TBI (traumatic brain injury) (2) Rib fractures (3) Confusion (4) Debility (5) Radial styloid fracture (6) Anticoagulated (7) Open head injury (8) Nausea (9) Altered mental status Clinical Quality Measures DVT/VTE Risk/Contraindication: Risk Factor Score Per Nursin RFS Level Per Nursing on Admit: 4+=Very High JOSEY MEJIA DO Jun 01, 2018 08:26
[2018-06-01] MEDS: DOCUSATE SODIUM 100 MG (COLACE) CAP PO PRN (08:44)
[2018-06-01] MEDS: VITAMIN D3 1,000 UNITS (CHOLECALCIFEROL) TABLET PO SCH (08:44)
[2018-06-01] MEDS: CEFDINIR 300 MG (OMNICEF) CAP PO SCH ×2 (08:44→20:34)
[2018-06-01] MEDS: OXYBUTYNIN (DITROPAN) 5 MG TAB PO SCH ×2 (08:44→20:34)
[2018-06-01] MEDS: LIDOCAINE 4% (SALONPAS) PATCH TOP SCH (08:44)
--- NOTE | 2018-06-01 08:45 | Occupational Ther Daily Note ---
OT Current Status-Daily Note Subjective Pt alert, lying in bed. Pt agrees to therapy. Pt c/o pain in side though stated that it was better than yesterday. Mental Status/Objective Patient Orientation: Person, Place, Time, Situation Therapy Code Descriptions/Definitions Functional [place] Measure: 0=Not Assessed/NA 4=Minimal Assistance 1=Total Assistance 5=Supervision or Setup 2=Maximal Assistance 6=Modified [place] 3=Moderate Assistance 7=Complete [place] Attachments: IV, Other-See Comments (wrist brace) ADL-Treatment Therapy Code Descriptions/Definitions Functional [place] Measure: 0=Not Assessed/NA 4=Minimal Assistance 1=Total Assistance 5=Supervision or Setup 2=Maximal Assistance 6=Modified [place] 3=Moderate Assistance 7=Complete [place] Therapy Quality Codes: 6 Independent with activity with or without an assistive device 5 Patient requires set up or clean up by helper. Patient completes activity by themselves 4 Supervision or touching assist (CGA). [place] provide cues , steadying assist 3 The helper provides less than half the effort to complete the activity 2 The helper provides more than half the effort to complete the activity 1 Dependent. The helper does all the effort to complete an activity 7 Patient refused to complete or attempt activity 9 The patient did not perform the activity before the current illness or injury 88 Not attempted due to Medical conditions or safety concerns Grooming (FIM): 6 (Sitting at sink, pt able to complete own grooming.) Oral Hygiene (QC): 6 Bathing (FIM): 4 (Using grabbar, BSC and hand held shower pt able to complete shower while in sitting.) Bathing Location: L Arm, R Arm, L Upper Leg, R Upper Leg, Chest, Abdomen, Buttocks, Perineal Area Shower/Bathe Self (QC): 3 Upper Body (FIM): 3 (Due to L UE ROM and increased pain in L side and UE, pt requires assistance to don/doff shirt.) Upper Body Dressing (QC): 3 Lower Body Dressing (FIM): 2 (Assist to don/doff lower body clothing. Pt is able to hike over R hip and use grabbar or cane for stability in standing.) Lower Body Dressing (QC): 2 On/Off Footwear (QC): 2 Toileting (FIM): 4 (Using grabbar and cane, pt able to complete hygiene and hiking pants over R hip, assist with L hip.) Toileting Hygiene (QC): 3 Toilet/Commode Transfer (FIM): 4 (CGA using grabbars for stand to sit, min A for sit to stand.) Toilet Transfer (QC): 3 Shower Transfer(FIM): 4 (Assist using grabbar, cane and BSC.) Other Treatment Pt completed therapy sponge exercises to increase enforcement officer and pinch strength for daily functional tasks. Pt was able to remember previous HEP for last visit. Therapy sponge left in room for pt to use. After therapy, pt sitting in recliner with call light/phone in reach. All needs met in room. OT Short Term Goals Short Term Goals Time Frame: Jun 07, 2018 Upper Body Dressing(FIM): 5 Lower Body Dressing(FIM): 5 Toileting(FIM): 5 Toilet/Commode Transfer(FIM): 5 Additional Short Term Goals: 1-Demonstrate ADL Tasks, 2-Verbalize Understanding , 3-ImproveStrength/Cintia 1=Demonstrate adherence to instructed precautions during ADL tasks. 2=Patient will verbalize/demonstrate understanding of assistive devices/ modifications for ADL. 3=Patient will improve strength/tolerance for activity to enable patient to perform ADL's. OT Enamel Drier Goals Enamel Drier Goals Time Frame: Jun 21, 2018 Eating (FIM): 6 Eating (QC): 6 Groomin Oral Hygiene (QC): 6 Bathing(FIM): 6 Shower/Bathe Self (QC): 6 Upper Body Dressing(FIM): 6 Upper Body Dressing (QC): 6 Lower Body Dressing(FIM): 6 Lower Body Dressing (QC): 6 On/Off Footwear (QC): 6 Toileting(FIM): 6 Toileting Hygiene (QC): 6 Toilet/Commode Transfer(FIM): 6 Toilet/Commode Transfer (QC): 6 Shower Transfer(FIM): 6 Additional Goals: 1-Demonstrate ADL Tasks, 2-Verbalize Understanding, 3- ImproveStrength/Cintia 1=Demonstrate adherence to instructed precautions during ADL tasks. 2=Patient will verbalize/demonstrate understanding of assistive devices/ modifications for ADL. 3=Patient will improve strength/tolerance for activity to enable patient to perform ADL's. OT Education/Plan Problem List/Assessment Assessment: Decreased Activ Tolerance, Decreased UE Strength, Edema, Impaired Funct Balance, Impaired Self-Care Skills, Restricted Funct UE ROM Discharge Recommendations Plan/Recommendations: Continue POC Treatment Plan/Plan of Care Patient would benefit from OT for education, treatment and training to promote independence in ADL's, mobility, safety and/or upper extremity function for ADL' s. Plan of Care: ADL Retraining, Functional Mobility, Group Exercise/Act as Ind, UE Funct Exercise/Act Treatment Duration: Jun 21, 2018 Frequency: At least 5 of 7 days/Wk (IRF) Estimated Hrs Per Day: 1.5 hours per day Agreement: Yes Rehab Potential: Good Time/GCodes Start Time: 07:00 Stop Time: 08:30 Total Time Billed (hr/min): 90 Billed Treatment Time 1 visit-ADL 5 (75 min) EX 1 (15 min) PAULINO MEJIA Jun 01, 2018 08:45
--- NOTE | 2018-06-01 10:10 | Physical Therapy Daily Note ---
PT Daily Note-Current Subjective Pt reports feeling pretty good, just got a shower and finished working with OT. Agreeable to PT treatment Pain Numeric Pain Scale: 3 Comment: left ribs, occasional increased sharp pain during session Appearance upon entering pt's room, pt sitting up in chair awake and alert just finishing OT session. At end of session, pt sitting up in recliner with LE's elevated, call light, phone and bedside table within reach, all needs met at this time Mental Status Patient Orientation: Normal For Age Transfers Therapy Code Descriptions/Definitions Functional [place] Measure: 0=Not Assessed/NA 4=Minimal Assistance 1=Total Assistance 5=Supervision or Setup 2=Maximal Assistance 6=Modified [place] 3=Moderate Assistance 7=Complete [place] Therapy Quality Codes: 6 Independent with activity with or without an assistive device 5 Patient requires set up or clean up by helper. Patient completes activity by themselves 4 Supervision or touching assist (CGA). [place] provide cues , steadying assist 3 The helper provides less than half the effort to complete the activity 2 The helper provides more than half the effort to complete the activity 1 Dependent. The helper does all the effort to complete an activity 7 Patient refused to complete or attempt activity 9 The patient did not perform the activity before the current illness or injury 88 Not attempted due to Medical conditions or safety concerns Transfers (B, C, W/C) (FIM): 5 Scootin Sit to/from Stand: 5 Pt performing all transitions with SBA, min effort, use of RUE on chair arm safely and properly sit to and from stand, NWB LUE Weight Bearing Right Lower Extremity: Right Full Weight Bearing Left Lower Extremity: Left Full Weight Bearing NWB left UE Gait Training Does the Patient Walk?: Yes Gait (FIM): 5 Distance (FIM): 3=150 ft Gait Level of Assist: 5 Gait Persons Needed: 1 Gait Assistive Device: Cane Large Base Quad (RUE) decreased step length and height, instruction to lift head and look ahead as pt tends to look down toward feet, fatigue at end of 1st gait distance Exercises Seated Therapy Exercises: Ankle pumps, Long arc quads, Hip flexion, Hip abd/add Seated Reps: 20 Standing: Heel/toe raises, 3 way Ex=Flex, Abd, Ext, Marching, Mini squats, Retro gait ([address] in // bars), Sit to Stand, Side steps (10 laps each L and R in // bars) Standing Reps: 20 rest breaks required every 3-4 exercises performed, RUE support on // bars with standing ex's NuStep Minutes: 10 NuStep Workload: 1 (LE's only, seat 10) Treatments Gait, transfer, safety training, sitting and standing exercises, to improve gait quality, activity tolerance, strength, balance, functional mobility, Assessment Current Status: Good Progress Pt tolerated treatment session with fatigue but is very motivated and willing. Pt with notable increased sharp brief pains in L side rib cage during session, pillow placed behind back on NuStep and in straight back chair helped with decreasing rib pain some PT Short Term Goals Short Term Goals Time Frame: Jun 07, 2018 Gait (FIM): 2 Distance (FIM): 3=150 ft Gait Assistive Device: Cane Small Base Quad PT Catering Convention Services Manager Goals Catering Convention Services Manager Goals PT Catering Convention Services Manager Goals Time Frame: Jun 23, 2018 Transfers (B,C,W/C) (FIM): 6 Sit to Lying (QC): 6 Lying-Sitting on Side/Bed(QC): 6 Sit to Stand (QC): 6 Rollin Roll Left to Right (QC): 6 Chair/Bxi-vx-Ptabd Xfer(QC): 6 Car Transfer (QC): 6 Does the Patient Walk: Yes Gait (FIM): 6 Gait distance (FIM): 3=150 ft Walk 10 feet (QC): 6 Walk 10ft-Uneven Surface(QC): 6 Walk 50ft with 2 Turns (QC): 6 Walk 150 ft (QC): 6 Gait Assistive Device: Cane Small Base Quad Does the Pt use WC or Scooter?: No Stairs (FIM): 5 # of Steps: 4 1 Step (curb) (QC): 6 4 Steps (QC): 6 12 Steps (QC): 88 Picking up an Object (QC): 88 PT Plan Treatment/Plan Treatment Plan: Continue Plan of Care Treatment Plan: Bed Mobility, Education, Functional Activity Cintia, Functional Strength, Group Therapy, Gait, Safety, Therapeutic Exercise, Transfers Treatment Duration: Jun 23, 2018 Frequency: At least 5 of 7 days/Wk (IRF) Estimated Hrs Per Day: 1.5 hours per day Patient and/or Family Agrees t: Yes Safety Risks/Education Patient Education: Gait Training, Transfer Techniques, Reviewed Precautions, Safety Issues Teaching Recipient: Patient Teaching Methods: Demonstration, Discussion Response to Teaching: Verbalize Understanding, Return Demonstration Time/GCodes Time In: 830 Time Out: 1000 Total Billed Treatment Time: 90 Total Billed Treatment 1 visit, GT x2 units, EX x2 units, FA x2 units KEERTHI BASHIR PTA Jun 01, 2018 10:10
[2018-06-01] MEDS: POLYETHYLENE GLYCOL 17 GM (MIRALAX) PACK PO PRN (10:19)
[2018-06-01] MEDS: ENOXAPARIN 100 MG/1 ML (LOVENOX) SYR SC SCH ×2 (10:19→20:34)
--- NOTE | 2018-06-01 11:05 | NUR ---
Pastoral care visit, pt told much of her story and advised [facility] was a [facility].
[2018-06-01 15:52] VITALS: BP 120/65
[2018-06-01] MEDS ORDERED: warFARin 3 MG (COUMADIN) TAB PO SCH (18:00)
[2018-06-01] MEDS: HYDROcodone/APAP 5 MG/325 MG (LORTAB) TAB PO PRN (20:34)
[2018-06-01] MEDS: PATCH REMOVAL TP SCH (20:36)
[2018-06-02 05:08] VITALS: BP 124/68
[2018-06-02 08:11] LABS: INR 1.5 (0.8-1.4); PROTHROMBIN TIME PATIENT 18.3 SEC (12.2-14.7)
--- NOTE | 2018-06-02 08:23 | PM&R Progress Note ---
Subjective HPI/CC On Admission Date Seen by Provider: Jun 02, 2018 Time Seen by Provider: 08:15 CC: Debility following fall with TBI with large frontal scalp hematoma left knee hematoma without fracture and left wrist nondisplaced radial styloid fx HPI: This is an 82-year-old white female who has been a patient in inpatient rehabilitation unit at [facility] 10 months ago who is a patient of Dr. Acharya 'bon who sustained a traumatic brain injury when she fell on her face after she missed a step heading into a local restaurant. She is maintained on Coumadin long-term due to hypercoagulable state with history of blood clots in the past. She was placed on the trauma service along with multiple consultants who placed her left wrist in a brace and monitor closely over the last 3 days with pain management and ambulation as much as possible with the use of incentive spirometer. Narcotic bowel is now resolved and she is currently eating lunch but has pain in her left ribs and has a history of for fractures in the past. She lives at home alone and will return to home to live independently after discharge from the rehabilitation facility. Subjective/Events-last exam Pt is doing very well. INR is 1.5 will maintain on Lovenox bridge. BM are going very well with MiraLax and Lactulose. Slept well. No confusion. PT reports she is doing well with a quad cane, OT reports she needs moderate assist with lower body dressing. We did speak about assisted living the last time she was here but she insists on going home. Review of Systems General: Fatigue Objective Exam Vital Signs Vital Signs Date Time Temp Pulse Resp B/P (MAP) Pulse Ox O2 Delivery O2 Flow Rate FiO2 06/02/18 18:00 98.7 76 18 118/81 (93) 97 Room Air Capillary Refill : Less Than 3 Seconds General Appearance: No Apparent Distress, WD/WN, Chronically ill, Obese, Other HEENT: PERRL/EOMI, Normal ENT Inspection, Pharynx Normal, Moist Mucous Membranes Neck: Full Range of Motion, Normal Inspection, Non Tender, Supple Respiratory: Chest Non Tender, Lungs Clear, Normal Breath Sounds, No Accessory Muscle Use, No Respiratory Distress, Other Cardiovascular: Regular Rate, Rhythm, No Edema, No Gallop, No JVD, No Murmur Gastrointestinal: Normal Bowel Sounds, No Organomegaly, No Pulsatile Mass, Non Tender, Soft Back: Normal Inspection, No CVA Tenderness, No Vertebral Tenderness Extremity: Normal Capillary Refill, Normal Inspection, Normal Range of Motion, Non Tender, No Calf Tenderness, No Pedal Edema Neurologic/Psychiatric: Alert, Oriented x3, No Motor/Sensory Deficits, Normal Mood/Affect Skin: Normal Color, Warm/Dry Lymphatic: No Adenopathy Results/Procedures Lab Patient resulted labs reviewed. Assessment/Plan Assessment and Plan Assess & Plan/Chief Complaint Assessment: Traumatic brain injury Fall Anticoagulation long-term for hypercoagulable state with history of PE and DVT Facial ecchymosis from fall Left radius fracture placed in brace Left knee hematoma Left rib fractures Overactive bladder Depression Status post constipation still not back to normal per patient Plan: Home meds Coumadin increased to 7.5mg daily and Lovenox bridge ordered Pain control with Lidocaine patch Incentive spirometer Intensive therapies Bowel regimen increased and will be maintained Will return to her home and live independently alone upon discharge (1) TBI (traumatic brain injury) (2) Rib fractures (3) Confusion (4) Debility (5) Radial styloid fracture (6) Anticoagulated (7) Open head injury (8) Nausea (9) Altered mental status Clinical Quality Measures DVT/VTE Risk/Contraindication: Risk Factor Score Per Nursin RFS Level Per Nursing on Admit: 4+=Very High JOSEY MEJIA DO Jun 02, 2018 08:23
[2018-06-02] MEDS: VITAMIN D3 1,000 UNITS (CHOLECALCIFEROL) TABLET PO SCH (08:27)
[2018-06-02] MEDS: OXYBUTYNIN (DITROPAN) 5 MG TAB PO SCH ×2 (08:27→22:05)
[2018-06-02] MEDS: CEFDINIR 300 MG (OMNICEF) CAP PO SCH ×2 (08:27→22:05)
[2018-06-02] MEDS: DOCUSATE SODIUM 100 MG (COLACE) CAP PO PRN (08:27)
[2018-06-02] MEDS: ENOXAPARIN 100 MG/1 ML (LOVENOX) SYR SC SCH ×2 (08:27→22:05)
[2018-06-02] MEDS: LIDOCAINE 4% (SALONPAS) PATCH TOP SCH (08:27)
--- NOTE | 2018-06-02 12:04 | Physical Therapy Daily Note ---
PT Daily Note-Current Subjective Pt sitting in recliner upon arrival. Pt agrees to PT. Pain Numeric Pain Scale: 6 Location: Left Location Body Site: Side Pain Description: Stabbing, Sharp Comment: Pt reports pain on L side/ribs. Mental Status Patient Orientation: Person, Place, Time, Situation Transfers Therapy Code Descriptions/Definitions Functional [place] Measure: 0=Not Assessed/NA 4=Minimal Assistance 1=Total Assistance 5=Supervision or Setup 2=Maximal Assistance 6=Modified [place] 3=Moderate Assistance 7=Complete [place] Therapy Quality Codes: 6 Independent with activity with or without an assistive device 5 Patient requires set up or clean up by helper. Patient completes activity by themselves 4 Supervision or touching assist ([facility]). [place] provide cues , steadying assist 3 The helper provides less than half the effort to complete the activity 2 The helper provides more than half the effort to complete the activity 1 Dependent. The helper does all the effort to complete an activity 7 Patient refused to complete or attempt activity 9 The patient did not perform the activity before the current illness or injury 88 Not attempted due to Medical conditions or safety concerns Scootin Rollin Supine to/from Sit: 4 Sit to/from Stand: 4 Sit to Lying (QC): 4 Sit to Stand (QC): 4 Weight Bearing Right Lower Extremity: Right Full Weight Bearing Left Lower Extremity: Left Full Weight Bearing NWB left UE Gait Training Does the Patient Walk?: Yes Distance (FIM): 3=150 ft Distance: 150' Walk 10 feet (QC): 5 Walk 50 ft with 2 Turns(QC): 5 Walk 150 ft (QC): 5 Gait Level of Assist: 5 Gait Persons Needed: 1 Gait Assistive Device: Cane Single Point Pt has slow tasia but good activity tolerance. Wheelchair Training Does the Pt Use a Wheelchair?: No Exercises Supine Ex: Ankle pumps, Quad Set, Glut sets, Heel Slides, Straight leg raise, Hip abd/add Supine Reps: 15 Seated Therapy Exercises: Ankle pumps, Long arc quads, Hip flexion, Kicking activity Seated Reps: 15 Treatments Pt transfers from recliner to standing at [facility]. Pt uses restroom then Pt ambulates in hallway using S[facility] at [facility]. Pt completes Supine Ex on Therapy Mat then sits EOM for Seated Ex. Pt returns to room to rest and order lunch at end of tx. Pt has all needs met. Assessment Current Status: Good Progress Pt continues to demonstrate self motivation to improve and return home, pain on pt's L side/ribs does limit some movements. PT Short Term Goals Short Term Goals Time Frame: Jun 07, 2018 Gait (FIM): 2 Distance (FIM): 3=150 ft Gait Assistive Device: Cane Small Base Quad PT Assisted Goals Teacher Industrial Arts Goals PT Assisted Goals Time Frame: Jun 23, 2018 Transfers (B,C,W/C) (FIM): 6 Sit to Lying (QC): 6 Lying-Sitting on Side/Bed(QC): 6 Sit to Stand (QC): 6 Rollin Roll Left to Right (QC): 6 Chair/Phu-gt-Gtgbf Xfer(QC): 6 Car Transfer (QC): 6 Does the Patient Walk: Yes Gait (FIM): 6 Gait distance (FIM): 3=150 ft Walk 10 feet (QC): 6 Walk 10ft-Uneven Surface(QC): 6 Walk 50ft with 2 Turns (QC): 6 Walk 150 ft (QC): 6 Gait Assistive Device: Cane Small Base Quad Does the Pt use WC or Scooter?: No Stairs (FIM): 5 # of Steps: 4 1 Step (curb) (QC): 6 4 Steps (QC): 6 12 Steps (QC): 88 Picking up an Object (QC): 88 PT Plan Problem List Problem List: Activity Tolerance, Functional Strength, Gait, Transfer Treatment/Plan Treatment Plan: Continue Plan of Care Treatment Plan: Bed Mobility, Education, Functional Activity Cintia, Functional Strength, Group Therapy, Gait, Safety, Therapeutic Exercise, Transfers Treatment Duration: Jun 23, 2018 Frequency: At least 5 of 7 days/Wk (IRF) Estimated Hrs Per Day: 1.5 hours per day Patient and/or Family Agrees t: Yes Safety Risks/Education Patient Education: Gait Training, Transfer Techniques, Correct Positioning, Safety Issues Teaching Recipient: Patient Teaching Methods: Discussion Response to Teaching: Verbalize Understanding Time/GCodes Time In: 1100 Time Out: 1200 Total Billed Treatment Time: 60 Total Billed Treatment 1, GT (15m), EX x2 (30m) & FA (15m) G Codes Necessary: JORDEN Vail REGULATORY COMPLIANCE DIRECTOR Jun 02, 2018 12:04
--- NOTE | 2018-06-02 12:39 | Occupational Ther Daily Note ---
OT Current Status-Daily Note Subjective No pain reported. Appearance Pt. up in chair. Has just finished breakfast. Declines showering. Requests to keep on the clothing that she has on. Agrees to OT treatment. Mental Status/Objective Patient Orientation: Person, Place, Time, Situation Therapy Code Descriptions/Definitions Functional [place] Measure: 0=Not Assessed/NA 4=Minimal Assistance 1=Total Assistance 5=Supervision or Setup 2=Maximal Assistance 6=Modified [place] 3=Moderate Assistance 7=Complete [place] ADL-Treatment Therapy Code Descriptions/Definitions Functional [place] Measure: 0=Not Assessed/NA 4=Minimal Assistance 1=Total Assistance 5=Supervision or Setup 2=Maximal Assistance 6=Modified [place] 3=Moderate Assistance 7=Complete [place] Therapy Quality Codes: 6 Independent with activity with or without an assistive device 5 Patient requires set up or clean up by helper. Patient completes activity by themselves 4 Supervision or touching assist (CGA). [place] provide cues , steadying assist 3 The helper provides less than half the effort to complete the activity 2 The helper provides more than half the effort to complete the activity 1 Dependent. The helper does all the effort to complete an activity 7 Patient refused to complete or attempt activity 9 The patient did not perform the activity before the current illness or injury 88 Not attempted due to Medical conditions or safety concerns Lower Body Dressing (FIM): 5 (Socks only. Pt. had difficulty, but overall was able to doff/don her slipper socks. States that she has a sock aide that she uses at home when needed.) Lower Body Dressing (QC): 4 On/Off Footwear (QC): 4 Toileting (FIM): 4 (Pt. requires min assist to doff shorts over hips. Pt. is able to cleanse darya area.) Toileting Hygiene (QC): 4 Transfers (B, C, W/C) (FIM): 4 (CGA sit-stand. CGA to ambulate with quad cane. ) Toilet/Commode Transfer (FIM): 4 Toilet Transfer (QC): 4 Other Treatment Pt. ambulated to therapy gym. Worked on sit-stands from regular chair. Pt. able to do this with little effort. Practiced socks and talked about home safety, and any needs for home. Pt. states that she has all needed equipment. Pt. states that she has a quad cane at home, as well as a walker, but did not use them. Worked on standing endurance tasks, as pt. states that she has had vertigo in the past. Ambulated around therapy dining area to increase overall strength and independence with daily tasks. All needs met back in room. Education OT Patient Education: Correct positioning, Exercise program, Modified ADL techniques, Progress toward Goal/Update tx plan, Purpose of tx/functional activities, Reviewed precautions, Rehab process, Transfer techniques Teaching Recipient: Patient Teaching Methods: Demonstration, Discussion Response to Teaching: Verbalize Understanding, Return Demonstration OT Short Term Goals Short Term Goals Time Frame: Jun 07, 2018 Upper Body Dressing(FIM): 5 Lower Body Dressing(FIM): 5 Toileting(FIM): 5 Toilet/Commode Transfer(FIM): 5 Additional Short Term Goals: 1-Demonstrate ADL Tasks, 2-Verbalize Understanding , 3-ImproveStrength/Cintia 1=Demonstrate adherence to instructed precautions during ADL tasks. 2=Patient will verbalize/demonstrate understanding of assistive devices/ modifications for ADL. 3=Patient will improve strength/tolerance for activity to enable patient to perform ADL's. OT Match Up Person Goals Match Up Person Goals Time Frame: Jun 21, 2018 Eating (FIM): 6 Eating (QC): 6 Groomin Oral Hygiene (QC): 6 Bathing(FIM): 6 Shower/Bathe Self (QC): 6 Upper Body Dressing(FIM): 6 Upper Body Dressing (QC): 6 Lower Body Dressing(FIM): 6 Lower Body Dressing (QC): 6 On/Off Footwear (QC): 6 Toileting(FIM): 6 Toileting Hygiene (QC): 6 Toilet/Commode Transfer(FIM): 6 Toilet/Commode Transfer (QC): 6 Shower Transfer(FIM): 6 Additional Goals: 1-Demonstrate ADL Tasks, 2-Verbalize Understanding, 3- ImproveStrength/Cintia 1=Demonstrate adherence to instructed precautions during ADL tasks. 2=Patient will verbalize/demonstrate understanding of assistive devices/ modifications for ADL. 3=Patient will improve strength/tolerance for activity to enable patient to perform ADL's. OT Education/Plan Problem List/Assessment Assessment: Decreased Activ Tolerance, Decreased UE Strength, Impaired I ADL's , Impaired Self-Care Skills, Restricted Funct UE ROM Discharge Recommendations Plan/Recommendations: Continue POC Therapy D/C Recommendations: Home w/ Family Support, Occupational Therapy Home Care, Scheduled Assistance Treatment Plan/Plan of Care Treatment,Training & Education: Yes Patient would benefit from OT for education, treatment and training to promote independence in ADL's, mobility, safety and/or upper extremity function for ADL' s. Plan of Care: ADL Retraining, Functional Mobility, Group Exercise/Act as Ind, UE Funct Exercise/Act Treatment Duration: Jun 21, 2018 Frequency: At least 5 of 7 days/Wk (IRF) Estimated Hrs Per Day: 1.5 hours per day Agreement: Yes Rehab Potential: Good Time/GCodes Start Time: 09:00 Stop Time: 10:00 Total Time Billed (hr/min): 60 Billed Treatment Time 1, ADL x 30minutes, FA x 30minutes CURT GILLESPIE OT Jun 02, 2018 12:39
--- NOTE | 2018-06-02 14:35 | Therapy Group Daily Note ---
Therapy Daily Group Note Patient Education Topic Fall Prevention, Home Safety Exercises LE Seated Exercise, UE Exercise Session Ratio (pt:therapist): 4:1 Goal of Session: Education on ARU Expectations, Home Safety Strategies, UE/LE Strengthing, Safety with Transfers Goal Met for this Session: Yes Pt Benefit of Group: Contributions to Others, F/U Use of Strategies @Home, Increased Functional Safety, Increased Functional Strength Other/Notes Pt ambulated to PT Group using SPC at [facility]. Group consists of Introduction (Name , Where Living & Favorite thing to do in Spring), Socialization, ARU Expectations, Seated LE/UE EX, Strategies for Home Safety & Fall Prevention. Pt actively and appropriately listens to peers during Group. Pt appropriately interacts with peers during discussion of Fall Prevention & Home Safety. Pt is able to complete Seated LE EX as well as RUE Ex but not not LUE due to injury. Pt ambulated back to room at end of Group to rest in recliner with feet up. Pt all needs met including LUE on pillow. Start Time: 13:00 Stop Time: 14:15 Total Billed Treatment Time: 75 Total Billed Treatment 1, GRP (75m) JORDEN ESPINOSA CLINICAL SAFETY SPECIALIST Jun 02, 2018 14:35
--- NOTE | 2018-06-02 16:52 | NUR ---
BANKING AND FINANCE INSTRUCTOR met with patient to review Team Conference Summary. As patient continues to require contact-guard assistance with all PT activities, min assist for bed mobility and transfers, and moderate assist for lower body dressing, team has recommended patient be reevaluated at next team conference on 327. Team ALSO recommended assisted living placement at discharge due to significant fall history. BANKING AND FINANCE INSTRUCTOR reviewed discharge recommendations with patient, she is agreeable for reevaluation, but is unsure she can financially afford assisted living. BANKING AND FINANCE INSTRUCTOR will continue to follow for additional discharge needs.
[2018-06-02] MEDS: warFARin 7.5 MG (COUMADIN) TAB PO SCH (17:48)
[2018-06-02 18:00] VITALS: BP 118/81
[2018-06-02] MEDS: PATCH REMOVAL TP SCH (22:06)
[2018-06-03 05:23] VITALS: BP 128/68
--- NOTE | 2018-06-03 07:56 | PM&R Progress Note ---
Subjective HPI/CC On Admission Date Seen by Provider: Jun 03, 2018 Time Seen by Provider: 08:00 CC: Debility following fall with TBI with large frontal scalp hematoma left knee hematoma without fracture and left wrist nondisplaced radial styloid fx HPI: This is an 82-year-old white female who has been a patient in inpatient rehabilitation unit at [facility] 10 months ago who is a patient of Dr. Acharya 'bon who sustained a traumatic brain injury when she fell on her face after she missed a step heading into a local restaurant. She is maintained on Coumadin long-term due to hypercoagulable state with history of blood clots in the past. She was placed on the trauma service along with multiple consultants who placed her left wrist in a brace and monitor closely over the last 3 days with pain management and ambulation as much as possible with the use of incentive spirometer. Narcotic bowel is now resolved and she is currently eating lunch but has pain in her left ribs and has a history of for fractures in the past. She lives at home alone and will return to home to live independently after discharge from the rehabilitation facility. Subjective/Events-last exam INR pending Bowel movements are loose so will change regimen prn Did not require any pain medication Only one episode of urinary incontinence Checked meds and labs We did speak about assisted living the last time she was here but she insists on going home. Review of Systems General: Fatigue Objective Exam Vital Signs Vital Signs Date Time Temp Pulse Resp B/P (MAP) Pulse Ox O2 Delivery O2 Flow Rate FiO2 06/03/18 21:00 Room Air 06/03/18 16:15 97.0 61 16 135/74 (94) 97 Capillary Refill : Less Than 3 Seconds General Appearance: No Apparent Distress, WD/WN, Chronically ill, Obese, Other HEENT: PERRL/EOMI, Normal ENT Inspection, Pharynx Normal, Moist Mucous Membranes Neck: Full Range of Motion, Normal Inspection, Non Tender, Supple Respiratory: Chest Non Tender, Lungs Clear, Normal Breath Sounds, No Accessory Muscle Use, No Respiratory Distress, Other Cardiovascular: Regular Rate, Rhythm, No Edema, No Gallop, No JVD, No Murmur Gastrointestinal: Normal Bowel Sounds, No Organomegaly, No Pulsatile Mass, Non Tender, Soft Back: Normal Inspection, No CVA Tenderness, No Vertebral Tenderness Extremity: Normal Capillary Refill, Normal Inspection, Normal Range of Motion, Non Tender, No Calf Tenderness, No Pedal Edema Neurologic/Psychiatric: Alert, Oriented x3, No Motor/Sensory Deficits, Normal Mood/Affect Skin: Normal Color, Warm/Dry Lymphatic: No Adenopathy Results/Procedures Lab Patient resulted labs reviewed. Assessment/Plan Assessment and Plan Assess & Plan/Chief Complaint Assessment: Traumatic brain injury Fall Anticoagulation long-term for hypercoagulable state with history of PE and DVT Facial ecchymosis from fall Left radius fracture placed in brace Left knee hematoma Left rib fractures Overactive bladder Depression Status post constipation still not back to normal per patient Plan: Home meds Coumadin increased to 7.5mg daily and Lovenox bridge ordered Pain control with Lidocaine patch Incentive spirometer Intensive therapies Bowel regimen increased and will be maintained Will return to her home and live independently alone upon discharge (1) TBI (traumatic brain injury) (2) Rib fractures (3) Confusion (4) Debility (5) Radial styloid fracture (6) Anticoagulated (7) Open head injury (8) Nausea (9) Altered mental status Clinical Quality Measures DVT/VTE Risk/Contraindication: Risk Factor Score Per Nursin RFS Level Per Nursing on Admit: 4+=Very High JOSEY MEJIA DO Jun 03, 2018 07:56
--- NOTE | 2018-06-03 08:00 | NUR ---
SOME BLOOD ON TISSUE WHEN WIPING AFTER BM. NO BLOOD IN TOILET OR BM. WILL CONTINUE TO MONITOR.
[2018-06-03] MEDS: CEFDINIR 300 MG (OMNICEF) CAP PO SCH ×2 (08:54→20:30)
[2018-06-03] MEDS: OXYBUTYNIN (DITROPAN) 5 MG TAB PO SCH ×2 (08:55→20:30)
[2018-06-03] MEDS: VITAMIN D3 1,000 UNITS (CHOLECALCIFEROL) TABLET PO SCH (08:55)
[2018-06-03] MEDS: ENOXAPARIN 100 MG/1 ML (LOVENOX) SYR SC SCH ×2 (09:00→20:30)
[2018-06-03 09:05] LABS: INR 1.6 (0.8-1.4)
--- NOTE | 2018-06-03 10:45 | Physical Therapy Daily Note ---
PT Daily Note-Current Subjective Pt sitting in recliner upon arrival. Pt agrees to PT. Pain Numeric Pain Scale: 3 Location: Left Location Body Site: Side Pain Description: Ache Comment: Pt reports pain in L side/ribs but reports feels better than yesterday. Mental Status Patient Orientation: Person, Place, Time, Situation Transfers Therapy Code Descriptions/Definitions Functional [place] Measure: 0=Not Assessed/NA 4=Minimal Assistance 1=Total Assistance 5=Supervision or Setup 2=Maximal Assistance 6=Modified [place] 3=Moderate Assistance 7=Complete [place] Therapy Quality Codes: 6 Independent with activity with or without an assistive device 5 Patient requires set up or clean up by helper. Patient completes activity by themselves 4 Supervision or touching assist (CGA). [place] provide cues , steadying assist 3 The helper provides less than half the effort to complete the activity 2 The helper provides more than half the effort to complete the activity 1 Dependent. The helper does all the effort to complete an activity 7 Patient refused to complete or attempt activity 9 The patient did not perform the activity before the current illness or injury 88 Not attempted due to Medical conditions or safety concerns Scootin Supine to/from Sit: 4 Sit to/from Stand: 5 Sit to Lying (QC): 4 Sit to Stand (QC): 5 Weight Bearing Right Lower Extremity: Right Full Weight Bearing Left Lower Extremity: Left Full Weight Bearing NWB left UE Gait Training Does the Patient Walk?: Yes Distance (FIM): 3=150 ft Distance: 350' Walk 10 feet (QC): 5 Walk 50 ft with 2 Turns(QC): 5 Walk 150 ft (QC): 5 Gait Level of Assist: 5 Gait Assistive Device: Cane Single Point Wheelchair Training Does the Pt Use a Wheelchair?: No Exercises Supine Ex: Ankle pumps, Quad Set, Glut sets, Heel Slides, Straight leg raise, Hip abd/add Supine Reps: 20 Seated Therapy Exercises: Long arc quads, Hip flexion, Kicking activity Seated Reps: 20 Treatments Pt transfers from recliner to standing then uses restroom. Pt ambulates in hallway using SPC. Pt completes Supine Ex on Therapy Mat followed by Seated Ex at EOM. Pt takes rest breaks as needed. Pt returns to room at end of tx with all needs met including LUE on pillow for comfort. Assessment Current Status: Good Progress Pt continues to improve each day with transfers and mobility. Pt is more independence and increases with safety. PT Short Term Goals Short Term Goals Time Frame: Jun 07, 2018 Gait (FIM): 2 Distance (FIM): 3=150 ft Gait Assistive Device: Cane Small Base Quad PT Recreational Therapist Goals [facility] Goals PT Recreational Therapist Goals Time Frame: Jun 23, 2018 Transfers (B,C,W/C) (FIM): 6 Sit to Lying (QC): 6 Lying-Sitting on Side/Bed(QC): 6 Sit to Stand (QC): 6 Rollin Roll Left to Right (QC): 6 Chair/Mbf-og-Vmsoe Xfer(QC): 6 Car Transfer (QC): 6 Does the Patient Walk: Yes Gait (FIM): 6 Gait distance (FIM): 3=150 ft Walk 10 feet (QC): 6 Walk 10ft-Uneven Surface(QC): 6 Walk 50ft with 2 Turns (QC): 6 Walk 150 ft (QC): 6 Gait Assistive Device: Cane Small Base Quad Does the Pt use WC or Scooter?: No Stairs (FIM): 5 # of Steps: 4 1 Step (curb) (QC): 6 4 Steps (QC): 6 12 Steps (QC): 88 Picking up an Object (QC): 88 PT Plan Problem List Problem List: Activity Tolerance, Functional Strength, Transfer, Bed Mobility Treatment/Plan Treatment Plan: Continue Plan of Care Treatment Plan: Bed Mobility, Education, Functional Activity Cintia, Functional Strength, Group Therapy, Gait, Safety, Therapeutic Exercise, Transfers Treatment Duration: Jun 23, 2018 Frequency: At least 5 of 7 days/Wk (IRF) Estimated Hrs Per Day: 1.5 hours per day Patient and/or Family Agrees t: Yes Safety Risks/Education Patient Education: Gait Training, Transfer Techniques, Correct Positioning, Safety Issues Teaching Recipient: Patient Teaching Methods: Discussion Response to Teaching: Verbalize Understanding Time/GCodes Time In: 900 Time Out: 1000 Total Billed Treatment Time: 60 Total Billed Treatment 1, GT (20m), FA (10m) & EX x2 (30m) G Codes Necessary: JORDEN [place] SUPERVISOR BLASTING Jun 03, 2018 10:45
[2018-06-03] MEDS: LIDOCAINE 4% (SALONPAS) PATCH TOP SCH (10:57)
--- NOTE | 2018-06-03 11:22 | Occupational Ther Daily Note ---
OT Current Status-Daily Note Subjective Pt alert, sitting in recliner. Pt agrees to therapy. No c/o pain at this time. Mental Status/Objective Patient Orientation: Person, Place, Time, Situation Therapy Code Descriptions/Definitions Functional [place] Measure: 0=Not Assessed/NA 4=Minimal Assistance 1=Total Assistance 5=Supervision or Setup 2=Maximal Assistance 6=Modified [place] 3=Moderate Assistance 7=Complete [place] ADL-Treatment Therapy Code Descriptions/Definitions Functional [place] Measure: 0=Not Assessed/NA 4=Minimal Assistance 1=Total Assistance 5=Supervision or Setup 2=Maximal Assistance 6=Modified [place] 3=Moderate Assistance 7=Complete [place] Therapy Quality Codes: 6 Independent with activity with or without an assistive device 5 Patient requires set up or clean up by helper. Patient completes activity by themselves 4 Supervision or touching assist (CGA). [place] provide cues , steadying assist 3 The helper provides less than half the effort to complete the activity 2 The helper provides more than half the effort to complete the activity 1 Dependent. The helper does all the effort to complete an activity 7 Patient refused to complete or attempt activity 9 The patient did not perform the activity before the current illness or injury 88 Not attempted due to Medical conditions or safety concerns Grooming (FIM): 6 (Sitting at sink, pt able to complete by self.) Oral Hygiene (QC): 6 Bathing (FIM): 4 (Using seat with cutout, long handle sponge grabbar and hand held shower pt able to complete bathing with SBA. Assist to dry buttocks.) Bathing Location: L Arm, R Arm, L Upper Leg, R Upper Leg, L Lower Leg ( including foot), R Lower Leg (including foot), Chest, Abdomen, Buttocks, Perineal Area Shower/Bathe Self (QC): 3 Upper Body (FIM): 5 (Set up only.) Upper Body Dressing (QC): 5 Lower Body Dressing (FIM): 4 (Pt able to don/doff pants and hike over hips with SBA. Assist to don/doff socks.) Lower Body Dressing (QC): 3 On/Off Footwear (QC): 2 Toileting (FIM): 5 (SBA to manipulate clothing, cleanses self on toilet. Grabbars and cane used.) Toileting Hygiene (QC): 4 Toilet/Commode Transfer (FIM): 5 (SBA using cane and grabbars.) Toilet Transfer (QC): 4 Shower Transfer(FIM): 5 (SBA using seat with cutout, FWW and grabbars.) Modified wrist splint for comfort and decrease friction thumb webspace between 1st and 2nd digits, anterior forearm. After therapy, pt sitting in recliner with call light/phone in reach. Visitor present in room. All needs met in room. OT Short Term Goals Short Term Goals Time Frame: Jun 07, 2018 Upper Body Dressing(FIM): 5 Lower Body Dressing(FIM): 5 Toileting(FIM): 5 Toilet/Commode Transfer(FIM): 5 Additional Short Term Goals: 1-Demonstrate ADL Tasks, 2-Verbalize Understanding , 3-ImproveStrength/Cintia 1=Demonstrate adherence to instructed precautions during ADL tasks. 2=Patient will verbalize/demonstrate understanding of assistive devices/ modifications for ADL. 3=Patient will improve strength/tolerance for activity to enable patient to perform ADL's. OT Assisted Goals Web Site Administrator Goals Time Frame: Jun 21, 2018 Eating (FIM): 6 Eating (QC): 6 Groomin Oral Hygiene (QC): 6 Bathing(FIM): 6 Shower/Bathe Self (QC): 6 Upper Body Dressing(FIM): 6 Upper Body Dressing (QC): 6 Lower Body Dressing(FIM): 6 Lower Body Dressing (QC): 6 On/Off Footwear (QC): 6 Toileting(FIM): 6 Toileting Hygiene (QC): 6 Toilet/Commode Transfer(FIM): 6 Toilet/Commode Transfer (QC): 6 Shower Transfer(FIM): 6 Additional Goals: 1-Demonstrate ADL Tasks, 2-Verbalize Understanding, 3- ImproveStrength/Cintia 1=Demonstrate adherence to instructed precautions during ADL tasks. 2=Patient will verbalize/demonstrate understanding of assistive devices/ modifications for ADL. 3=Patient will improve strength/tolerance for activity to enable patient to perform ADL's. OT Education/Plan Problem List/Assessment Assessment: Restricted Funct UE ROM Discharge Recommendations Plan/Recommendations: Continue POC Treatment Plan/Plan of Care Patient would benefit from OT for education, treatment and training to promote independence in ADL's, mobility, safety and/or upper extremity function for ADL' s. Plan of Care: ADL Retraining, Functional Mobility, Group Exercise/Act as Ind, UE Funct Exercise/Act Treatment Duration: Jun 21, 2018 Frequency: At least 5 of 7 days/Wk (IRF) Estimated Hrs Per Day: 1.5 hours per day Agreement: Yes Rehab Potential: Good Time/GCodes Start Time: 10:00 Stop Time: 11:15 Total Time Billed (hr/min): 75 Billed Treatment Time 1 visit-ADL 5 (75 min) PAULINO MEJIA Jun 03, 2018 11:22
--- NOTE | 2018-06-03 13:46 | Occupational Ther Daily Note ---
OT Current Status-Daily Note Subjective Pt sitting in bathroom. Pt agrees to therapy. No c/o pain at this time. Mental Status/Objective Patient Orientation: Person, Place, Time, Situation Therapy Code Descriptions/Definitions Functional [place] Measure: 0=Not Assessed/NA 4=Minimal Assistance 1=Total Assistance 5=Supervision or Setup 2=Maximal Assistance 6=Modified [place] 3=Moderate Assistance 7=Complete [place] ADL-Treatment Pt able to complete toilet transfer with close SBA using grabbars and cane. Pt able to manipulate clothing with close SBA and hygiene for darya care. Assist needed for hygiene after BM. Pt ambulated back to recliner. After therapy, pt sitting in recliner with call light/phone in reach. All needs met in room. Therapy Code Descriptions/Definitions Functional [place] Measure: 0=Not Assessed/NA 4=Minimal Assistance 1=Total Assistance 5=Supervision or Setup 2=Maximal Assistance 6=Modified [place] 3=Moderate Assistance 7=Complete [place] Therapy Quality Codes: 6 Independent with activity with or without an assistive device 5 Patient requires set up or clean up by helper. Patient completes activity by themselves 4 Supervision or touching assist (CGA). [place] provide cues , steadying assist 3 The helper provides less than half the effort to complete the activity 2 The helper provides more than half the effort to complete the activity 1 Dependent. The helper does all the effort to complete an activity 7 Patient refused to complete or attempt activity 9 The patient did not perform the activity before the current illness or injury 88 Not attempted due to Medical conditions or safety concerns Toileting (FIM): 4 Toileting Hygiene (QC): 3 Toilet/Commode Transfer (FIM): 5 Toilet Transfer (QC): 4 OT Short Term Goals Short Term Goals Time Frame: Jun 07, 2018 Upper Body Dressing(FIM): 5 Lower Body Dressing(FIM): 5 Toileting(FIM): 5 Toilet/Commode Transfer(FIM): 5 Additional Short Term Goals: 1-Demonstrate ADL Tasks, 2-Verbalize Understanding , 3-ImproveStrength/Cintia 1=Demonstrate adherence to instructed precautions during ADL tasks. 2=Patient will verbalize/demonstrate understanding of assistive devices/ modifications for ADL. 3=Patient will improve strength/tolerance for activity to enable patient to perform ADL's. OT Endorsement Clerk Goals Endorsement Clerk Goals Time Frame: Jun 21, 2018 Eating (FIM): 6 Eating (QC): 6 Groomin Oral Hygiene (QC): 6 Bathing(FIM): 6 Shower/Bathe Self (QC): 6 Upper Body Dressing(FIM): 6 Upper Body Dressing (QC): 6 Lower Body Dressing(FIM): 6 Lower Body Dressing (QC): 6 On/Off Footwear (QC): 6 Toileting(FIM): 6 Toileting Hygiene (QC): 6 Toilet/Commode Transfer(FIM): 6 Toilet/Commode Transfer (QC): 6 Shower Transfer(FIM): 6 Additional Goals: 1-Demonstrate ADL Tasks, 2-Verbalize Understanding, 3- ImproveStrength/Cintia 1=Demonstrate adherence to instructed precautions during ADL tasks. 2=Patient will verbalize/demonstrate understanding of assistive devices/ modifications for ADL. 3=Patient will improve strength/tolerance for activity to enable patient to perform ADL's. OT Education/Plan Discharge Recommendations Plan/Recommendations: Continue POC Treatment Plan/Plan of Care Patient would benefit from OT for education, treatment and training to promote independence in ADL's, mobility, safety and/or upper extremity function for ADL' s. Plan of Care: ADL Retraining, Functional Mobility, Group Exercise/Act as Ind, UE Funct Exercise/Act Treatment Duration: Jun 21, 2018 Frequency: At least 5 of 7 days/Wk (IRF) Estimated Hrs Per Day: 1.5 hours per day Agreement: Yes Rehab Potential: Good Time/GCodes Start Time: 12:45 Stop Time: 13:00 Total Time Billed (hr/min): 15 Billed Treatment Time 1 visit-ADL 1 (15 min) PAULINO MEJIA Jun 03, 2018 13:46
--- NOTE | 2018-06-03 15:49 | Physical Therapy Daily Note ---
PT Daily Note-Current Subjective Pt sitting in recliner upon arrival. Pt agrees to PT. Pain Numeric Pain Scale: 3 Location: Left Location Body Site: Side Pain Description: Ache Mental Status Patient Orientation: Person, Place, Time, Situation Transfers Therapy Code Descriptions/Definitions Functional [place] Measure: 0=Not Assessed/NA 4=Minimal Assistance 1=Total Assistance 5=Supervision or Setup 2=Maximal Assistance 6=Modified [place] 3=Moderate Assistance 7=Complete [place] Therapy Quality Codes: 6 Independent with activity with or without an assistive device 5 Patient requires set up or clean up by helper. Patient completes activity by themselves 4 Supervision or touching assist (CGA). [place] provide cues , steadying assist 3 The helper provides less than half the effort to complete the activity 2 The helper provides more than half the effort to complete the activity 1 Dependent. The helper does all the effort to complete an activity 7 Patient refused to complete or attempt activity 9 The patient did not perform the activity before the current illness or injury 88 Not attempted due to Medical conditions or safety concerns Scootin Sit to/from Stand: 5 Sit to Stand (QC): 5 Weight Bearing Right Lower Extremity: Right Full Weight Bearing Left Lower Extremity: Left Full Weight Bearing NWB left UE Gait Training Does the Patient Walk?: Yes Distance (FIM): 3=150 ft Distance: 1000' Walk 10 feet (QC): 5 Walk 50 ft with 2 Turns(QC): 5 Walk 150 ft (QC): 5 Gait Level of Assist: 5 Gait Persons Needed: 1 Gait Assistive Device: Cane Single Point Wheelchair Training Does the Pt Use a Wheelchair?: No Treatments Pt transfers from recliner to standing. Pt ambulates in hallway and on main floor of hospital using SPC at [facility]. Pt takes a couple of short standing rest breaks. Pt returns to room to rest in recliner and visit with family. Pt has all needs met. Assessment Current Status: Good Progress Pt is tired by end of walk but tolerates tx well. PT Short Term Goals Short Term Goals Time Frame: Jun 07, 2018 Gait (FIM): 2 Distance (FIM): 3=150 ft Gait Assistive Device: Cane Small Base Quad PT Residential Care Facility Manager Goals Residential Care Facility Manager Goals PT Residential Care Facility Manager Goals Time Frame: Jun 23, 2018 Transfers (B,C,W/C) (FIM): 6 Sit to Lying (QC): 6 Lying-Sitting on Side/Bed(QC): 6 Sit to Stand (QC): 6 Rollin Roll Left to Right (QC): 6 Chair/Mmz-yx-Eyzrc Xfer(QC): 6 Car Transfer (QC): 6 Does the Patient Walk: Yes Gait (FIM): 6 Gait distance (FIM): 3=150 ft Walk 10 feet (QC): 6 Walk 10ft-Uneven Surface(QC): 6 Walk 50ft with 2 Turns (QC): 6 Walk 150 ft (QC): 6 Gait Assistive Device: Cane Small Base Quad Does the Pt use WC or Scooter?: No Stairs (FIM): 5 # of Steps: 4 1 Step (curb) (QC): 6 4 Steps (QC): 6 12 Steps (QC): 88 Picking up an Object (QC): 88 PT Plan Problem List Problem List: Activity Tolerance Treatment/Plan Treatment Plan: Continue Plan of Care Treatment Plan: Bed Mobility, Education, Functional Activity Cintia, Functional Strength, Group Therapy, Gait, Safety, Therapeutic Exercise, Transfers Treatment Duration: Jun 23, 2018 Frequency: At least 5 of 7 days/Wk (IRF) Estimated Hrs Per Day: 1.5 hours per day Patient and/or Family Agrees t: Yes Safety Risks/Education Patient Education: Gait Training, Transfer Techniques, Correct Positioning, Safety Issues Teaching Recipient: Patient Teaching Methods: Discussion Response to Teaching: Verbalize Understanding Time/GCodes Time In: 1330 Time Out: 1400 Total Billed Treatment Time: 30 Total Billed Treatment 1, GT x2 (30m) G Codes Necessary: JORDEN [place] PTA Jun 03, 2018 15:49
[2018-06-03 16:15] VITALS: BP 135/74
--- NOTE | 2018-06-03 16:30 | NUR ---
LEFT NOTE WITH DR. CHINO'S OFFICE TO MAKE FOLLOW UP APPOINTMENT. THEY ARE TO RETURN CALL.
--- NOTE | 2018-06-03 17:00 | NUR ---
DR. MEJIA UPDATED ON INR LEVEL. NO CHANGES IN COUMADIN TODAY.
[2018-06-03] MEDS: warFARin 7.5 MG (COUMADIN) TAB PO SCH (17:42)
[2018-06-03] MEDS: PATCH REMOVAL TP SCH (20:32)
[2018-06-04 06:00] VITALS: BP 125/71
[2018-06-04] MEDS: LIDOCAINE 4% (SALONPAS) PATCH TOP SCH (08:07)
[2018-06-04] MEDS: VITAMIN D3 1,000 UNITS (CHOLECALCIFEROL) TABLET PO SCH (08:07)
[2018-06-04] MEDS: CEFDINIR 300 MG (OMNICEF) CAP PO SCH ×2 (08:07→21:14)
[2018-06-04] MEDS: OXYBUTYNIN (DITROPAN) 5 MG TAB PO SCH ×2 (08:07→21:14)
[2018-06-04] MEDS: ENOXAPARIN 100 MG/1 ML (LOVENOX) SYR SC SCH ×2 (08:09→21:14)
--- NOTE | 2018-06-04 08:55 | PM&R Progress Note ---
Subjective HPI/CC On Admission Date Seen by Provider: Jun 04, 2018 Time Seen by Provider: 08:45 CC: Debility following fall with TBI with large frontal scalp hematoma left knee hematoma without fracture and left wrist nondisplaced radial styloid fx HPI: This is an 82-year-old white female who has been a patient in inpatient rehabilitation unit at [facility] 10 months ago who is a patient of Dr. Acharya 'bon who sustained a traumatic brain injury when she fell on her face after she missed a step heading into a local restaurant. She is maintained on Coumadin long-term due to hypercoagulable state with history of blood clots in the past. She was placed on the trauma service along with multiple consultants who placed her left wrist in a brace and monitor closely over the last 3 days with pain management and ambulation as much as possible with the use of incentive spirometer. Narcotic bowel is now resolved and she is currently eating lunch but has pain in her left ribs and has a history of for fractures in the past. She lives at home alone and will return to home to live independently after discharge from the rehabilitation facility. Subjective/Events-last exam INR ordered for tomorrow Bowel movements are maintained with when necessary meds Did not require any pain medication Urinary incontinence occurs at times Checked meds and labs We did speak about assisted living the last time she was here but she insists on going home. Review of Systems General: Fatigue Objective Exam Vital Signs Vital Signs Date Time Temp Pulse Resp B/P (MAP) Pulse Ox O2 Delivery O2 Flow Rate FiO2 06/04/18 09:00 Room Air 06/04/18 06:00 97.7 63 18 125/71 (89) 94 Capillary Refill : Less Than 3 Seconds General Appearance: No Apparent Distress, WD/WN, Chronically ill, Obese, Other HEENT: PERRL/EOMI, Normal ENT Inspection, Pharynx Normal, Moist Mucous Membranes Neck: Full Range of Motion, Normal Inspection, Non Tender, Supple Respiratory: Chest Non Tender, Lungs Clear, Normal Breath Sounds, No Accessory Muscle Use, No Respiratory Distress, Other Cardiovascular: Regular Rate, Rhythm, No Edema, No Gallop, No JVD, No Murmur Gastrointestinal: Normal Bowel Sounds, No Organomegaly, No Pulsatile Mass, Non Tender, Soft Back: Normal Inspection, No CVA Tenderness, No Vertebral Tenderness Extremity: Normal Capillary Refill, Normal Inspection, Normal Range of Motion, Non Tender, No Calf Tenderness, No Pedal Edema Neurologic/Psychiatric: Alert, Oriented x3, No Motor/Sensory Deficits, Normal Mood/Affect Skin: Normal Color, Warm/Dry Lymphatic: No Adenopathy Results/Procedures Lab Patient resulted labs reviewed. Assessment/Plan Assessment and Plan Assess & Plan/Chief Complaint Assessment: Traumatic brain injury Fall Anticoagulation long-term for hypercoagulable state with history of PE and DVT Facial ecchymosis from fall Left radius fracture placed in brace Left knee hematoma Left rib fractures Overactive bladder Depression Status post constipation still not back to normal per patient Plan: Home meds Coumadin increased to 7.5mg daily and Lovenox bridge ordered Pain control with Lidocaine patch Incentive spirometer Intensive therapies Bowel regimen increased and will be maintained Will return to her home and live independently alone upon discharge Check INR tomorrow (1) TBI (traumatic brain injury) (2) Rib fractures (3) Confusion (4) Debility (5) Radial styloid fracture (6) Anticoagulated (7) Open head injury (8) Nausea (9) Altered mental status Clinical Quality Measures DVT/VTE Risk/Contraindication: Risk Factor Score Per Nursin RFS Level Per Nursing on Admit: 4+=Very High JOSEY MEJIA DO Jun 04, 2018 08:55
--- NOTE | 2018-06-04 09:13 | Occupational Ther Daily Note ---
OT Current Status-Daily Note Subjective Pt alert, lying in bed. No c/o pain at this time. Pt agrees to therapy. Mental Status/Objective Patient Orientation: Person, Place, Time, Situation Therapy Code Descriptions/Definitions Functional [place] Measure: 0=Not Assessed/NA 4=Minimal Assistance 1=Total Assistance 5=Supervision or Setup 2=Maximal Assistance 6=Modified [place] 3=Moderate Assistance 7=Complete [place] ADL-Treatment Pt agrees to shower. SBA for supine to EOB. Close SBA using cane to ambulate into bathroom and complete toilet/shower transfers. Pt able to manipulate clothing and cleanse darya area with SBA after toileting, assist to cleanse buttocks. Using AE pt able to complete shower, assist to dry buttocks. After set up, pt able to don/doff upper body. Assist for manipulating pant leg over R toes and hip, pt able able to pull up legs and L hip. Pt donned/doffed socks by self after set up. Pt able to open containers and small packages for meal set up and use regular utensils to eat. After therapy, pt sitting in recliner with call light/phone in reach. All needs met in room. Therapy Code Descriptions/Definitions Functional [place] Measure: 0=Not Assessed/NA 4=Minimal Assistance 1=Total Assistance 5=Supervision or Setup 2=Maximal Assistance 6=Modified [place] 3=Moderate Assistance 7=Complete [place] Therapy Quality Codes: 6 Independent with activity with or without an assistive device 5 Patient requires set up or clean up by helper. Patient completes activity by themselves 4 Supervision or touching assist (CGA). [place] provide cues , steadying assist 3 The helper provides less than half the effort to complete the activity 2 The helper provides more than half the effort to complete the activity 1 Dependent. The helper does all the effort to complete an activity 7 Patient refused to complete or attempt activity 9 The patient did not perform the activity before the current illness or injury 88 Not attempted due to Medical conditions or safety concerns Eating (FIM): 7 Eating (QC): 6 Grooming (FIM): 5 (Pt stood at sink to complete grooming.) Oral Hygiene (QC): 4 Bathing (FIM): 4 Bathing Location: L Arm, R Arm, L Upper Leg, R Upper Leg, L Lower Leg ( including foot), R Lower Leg (including foot), Chest, Abdomen, Perineal Area Shower/Bathe Self (QC): 3 Upper Body (FIM): 5 Upper Body Dressing (QC): 5 Lower Body Dressing (FIM): 4 Lower Body Dressing (QC): 3 On/Off Footwear (QC): 5 Toileting (FIM): 4 Toileting Hygiene (QC): 3 Toilet/Commode Transfer (FIM): 5 Toilet Transfer (QC): 4 Shower Transfer(FIM): 5 OT Short Term Goals Short Term Goals Time Frame: Jun 07, 2018 Upper Body Dressing(FIM): 5 Lower Body Dressing(FIM): 5 Toileting(FIM): 5 Toilet/Commode Transfer(FIM): 5 Additional Short Term Goals: 1-Demonstrate ADL Tasks, 2-Verbalize Understanding , 3-ImproveStrength/Cintia 1=Demonstrate adherence to instructed precautions during ADL tasks. 2=Patient will verbalize/demonstrate understanding of assistive devices/ modifications for ADL. 3=Patient will improve strength/tolerance for activity to enable patient to perform ADL's. OT Senior Living Goals Senior Living Goals Time Frame: Jun 21, 2018 Eating (FIM): 6 Eating (QC): 6 Groomin Oral Hygiene (QC): 6 Bathing(FIM): 6 Shower/Bathe Self (QC): 6 Upper Body Dressing(FIM): 6 Upper Body Dressing (QC): 6 Lower Body Dressing(FIM): 6 Lower Body Dressing (QC): 6 On/Off Footwear (QC): 6 Toileting(FIM): 6 Toileting Hygiene (QC): 6 Toilet/Commode Transfer(FIM): 6 Toilet/Commode Transfer (QC): 6 Shower Transfer(FIM): 6 Additional Goals: 1-Demonstrate ADL Tasks, 2-Verbalize Understanding, 3- ImproveStrength/Cintia 1=Demonstrate adherence to instructed precautions during ADL tasks. 2=Patient will verbalize/demonstrate understanding of assistive devices/ modifications for ADL. 3=Patient will improve strength/tolerance for activity to enable patient to perform ADL's. OT Education/Plan Problem List/Assessment Assessment: Decreased Activ Tolerance, Decreased UE Strength, Impaired Self- Care Skills, Restricted Funct UE ROM Discharge Recommendations Plan/Recommendations: Continue POC Treatment Plan/Plan of Care Patient would benefit from OT for education, treatment and training to promote independence in ADL's, mobility, safety and/or upper extremity function for ADL' s. Plan of Care: ADL Retraining, Functional Mobility, Group Exercise/Act as Ind, UE Funct Exercise/Act Treatment Duration: Jun 21, 2018 Frequency: At least 5 of 7 days/Wk (IRF) Estimated Hrs Per Day: 1.5 hours per day Agreement: Yes Rehab Potential: Good Time/GCodes Start Time: 08:10 Stop Time: 09:10 Total Time Billed (hr/min): 60 Billed Treatment Time 1 visit-ADL 4 (60 min) PAULINO MEJIA Jun 04, 2018 09:13
--- NOTE | 2018-06-04 12:05 | Physical Therapy Daily Note ---
PT Daily Note-Current Subjective Pt. agrees to Rx but states she feels a little dizzy and flushed and hot. States after Rx that she feels better after moving around Pain Location: Medial Location Body Site: Face (forehead at hematoma) Pain Description: Burning Mental Status Patient Orientation: Normal For Age Transfers Therapy Code Descriptions/Definitions Functional [place] Measure: 0=Not Assessed/NA 4=Minimal Assistance 1=Total Assistance 5=Supervision or Setup 2=Maximal Assistance 6=Modified [place] 3=Moderate Assistance 7=Complete [place] Therapy Quality Codes: 6 Independent with activity with or without an assistive device 5 Patient requires set up or clean up by helper. Patient completes activity by themselves 4 Supervision or touching assist (CGA). [place] provide cues , steadying assist 3 The helper provides less than half the effort to complete the activity 2 The helper provides more than half the effort to complete the activity 1 Dependent. The helper does all the effort to complete an activity 7 Patient refused to complete or attempt activity 9 The patient did not perform the activity before the current illness or injury 88 Not attempted due to Medical conditions or safety concerns Transfers (B, C, W/C) (FIM): 5 Scootin Rollin Supine to/from Sit: 5 Sit to/from Stand: 5 Bed to/from Chair: 5 Weight Bearing Right Lower Extremity: Right Full Weight Bearing Left Lower Extremity: Left Full Weight Bearing NWB left UE Gait Training Does the Patient Walk?: Yes Gait (FIM): 4 Distance (FIM): 3=150 ft (150, 100) Gait Level of Assist: 4 Gait Persons Needed: 1 Gait Assistive Device: Cane Large Base Quad head down, short strides Exercises Supine Ex: Bridging, Ankle pumps, Quad Set, Rolling, Glut sets, Heel Slides, Short Arc Quads, Scooting, Straight leg raise, Hip abd/add Supine Reps: 15 Seated Therapy Exercises: Ankle pumps, Sit to stand, Long arc quads, Hip flexion, Hip abd/add Seated Reps: 15 NuStep Minutes: 10 NuStep Workload: 1 Treatments toileted with min assist briefs down and up, cleaning indep Assessment Current Status: Good Progress temp 97.4, PT Short Term Goals Short Term Goals Time Frame: Jun 07, 2018 Gait (FIM): 2 Distance (FIM): 3=150 ft Gait Assistive Device: Cane Small Base Quad PT Mcfp Goals Lavatory Attendant Goals PT Lavatory Attendant Goals Time Frame: Jun 23, 2018 Transfers (B,C,W/C) (FIM): 6 Sit to Lying (QC): 6 Lying-Sitting on Side/Bed(QC): 6 Sit to Stand (QC): 6 Rollin Roll Left to Right (QC): 6 Chair/Ajw-qv-Sslal Xfer(QC): 6 Car Transfer (QC): 6 Does the Patient Walk: Yes Gait (FIM): 6 Gait distance (FIM): 3=150 ft Walk 10 feet (QC): 6 Walk 10ft-Uneven Surface(QC): 6 Walk 50ft with 2 Turns (QC): 6 Walk 150 ft (QC): 6 Gait Assistive Device: Cane Small Base Quad Does the Pt use WC or Scooter?: No Stairs (FIM): 5 # of Steps: 4 1 Step (curb) (QC): 6 4 Steps (QC): 6 12 Steps (QC): 88 Picking up an Object (QC): 88 PT Plan Treatment/Plan Treatment Plan: Continue Plan of Care Treatment Plan: Bed Mobility, Education, Functional Activity Cintia, Functional Strength, Group Therapy, Gait, Safety, Therapeutic Exercise, Transfers Treatment Duration: Jun 23, 2018 Frequency: At least 5 of 7 days/Wk (IRF) Estimated Hrs Per Day: 1.5 hours per day Patient and/or Family Agrees t: Yes Safety Risks/Education Patient Education: Gait Training, Transfer Techniques, Correct Positioning, Disease Process, Safety Issues Teaching Recipient: Patient Teaching Methods: Demonstration, Discussion Response to Teaching: Verbalize Understanding, Return Demonstration, Reinforcement Needed Time/GCodes Time In: 1100 Time Out: 1200 Total Billed Treatment Time: 60 Total Billed Treatment 1,EX35m,FA10m,GT15m G Codes Necessary: ZION Tomlinson SHANK SCOURER Jun 04, 2018 12:05
--- NOTE | 2018-06-04 14:56 | Therapy Group Daily Note ---
Therapy Daily Group Note Patient Education Topic Other List Below (TRF techniques demonstration and education) Exercises LE Seated Exercise, UE Exercise Session Ratio (pt:therapist): 4:1 Goal of Session: Safety with Transfers Pt. to lead others in seated exercise group session by reading and demonstrating exercises utilizing written illustrated guide. Pts. to gain understanding of various transfer techniques and safety Goal Met for this Session: Yes Pt Benefit of Group: Contributions to Others, F/U Use of Strategies @Home, Increased Functional Safety, Increased Functional Strength, Socialization Pt. interacted with others socially, coordinated exercise group activities , and participated in TRF education discussion/ demonstration Other/Notes Pt. ambulated to from PT OT group with FWW CGA, in bed after group with tang in hand Start Time: 13:00 Stop Time: 14:20 Total Billed Treatment Time: 80 Total Billed Treatment 1,GRP ZION COLEY CARDIOLOGY COORDINATOR Jun 04, 2018 14:56
[2018-06-04 16:05] VITALS: BP 133/79
[2018-06-04] MEDS: warFARin 7.5 MG (COUMADIN) TAB PO SCH (18:21)
[2018-06-04] MEDS: PATCH REMOVAL TP SCH (21:14)
[2018-06-05 05:08] VITALS: BP 113/62
[2018-06-05 05:24] LABS: INR 1.8 (0.8-1.4); PROTHROMBIN TIME PATIENT 21.7 SEC (12.2-14.7)
[2018-06-05] MEDS: ENOXAPARIN 100 MG/1 ML (LOVENOX) SYR SC SCH ×2 (08:43→20:18)
[2018-06-05] MEDS: CEFDINIR 300 MG (OMNICEF) CAP PO SCH ×2 (08:43→20:18)
[2018-06-05] MEDS: OXYBUTYNIN (DITROPAN) 5 MG TAB PO SCH ×2 (08:43→20:18)
[2018-06-05] MEDS: VITAMIN D3 1,000 UNITS (CHOLECALCIFEROL) TABLET PO SCH (08:43)
[2018-06-05] MEDS: LIDOCAINE 4% (SALONPAS) PATCH TOP SCH (08:43)
--- NOTE | 2018-06-05 10:11 | Physical Therapy Daily Note ---
PT Daily Note-Current Subjective Pt sitting in recliner upon arrival. Pt agrees to PT. Mental Status Patient Orientation: Person, Place, Time, Situation Transfers Therapy Code Descriptions/Definitions Functional [place] Measure: 0=Not Assessed/NA 4=Minimal Assistance 1=Total Assistance 5=Supervision or Setup 2=Maximal Assistance 6=Modified [place] 3=Moderate Assistance 7=Complete [place] Therapy Quality Codes: 6 Independent with activity with or without an assistive device 5 Patient requires set up or clean up by helper. Patient completes activity by themselves 4 Supervision or touching assist (CGA). [place] provide cues , steadying assist 3 The helper provides less than half the effort to complete the activity 2 The helper provides more than half the effort to complete the activity 1 Dependent. The helper does all the effort to complete an activity 7 Patient refused to complete or attempt activity 9 The patient did not perform the activity before the current illness or injury 88 Not attempted due to Medical conditions or safety concerns Scootin Rollin Supine to/from Sit: 5 Sit to/from Stand: 5 Sit to Stand (QC): 5 Car Transfer (QC): 5 Weight Bearing Right Lower Extremity: Right Full Weight Bearing Left Lower Extremity: Left Full Weight Bearing NWB left UE Gait Training Does the Patient Walk?: Yes Distance (FIM): 3=150 ft Distance: 150' Walk 10 feet (QC): 5 Walk 50 ft with 2 Turns(QC): 5 Walk 150 ft (QC): 5 Gait Level of Assist: 5 Gait Persons Needed: 1 Gait Assistive Device: Cane Large Base Quad Wheelchair Training Does the Pt Use a Wheelchair?: No Exercises Supine Ex: Rolling Seated Therapy Exercises: Sit to stand Treatments Pt transfers from recliner to standing then uses restroom. Pt ambulates in hallway and completes transfers from Supine to EOB as well as rolling, then EOB to standing. Pt completes car transfer then returns to room at end of tx with all needs met. Assessment Current Status: Good Progress Pt continues to demonstrate improved strength, transfers & mobility. PT Short Term Goals Short Term Goals Time Frame: Jun 07, 2018 Gait (FIM): 2 Distance (FIM): 3=150 ft Gait Assistive Device: Cane Small Base Quad PT Button Pusher Goals Button Pusher Goals PT Button Pusher Goals Time Frame: Jun 23, 2018 Transfers (B,C,W/C) (FIM): 6 Sit to Lying (QC): 6 Lying-Sitting on Side/Bed(QC): 6 Sit to Stand (QC): 6 Rollin Roll Left to Right (QC): 6 Chair/Fpz-yo-[place] Xfer(QC): 6 Car Transfer (QC): 6 Does the Patient Walk: Yes Gait (FIM): 6 Gait distance (FIM): 3=150 ft Walk 10 feet (QC): 6 Walk 10ft-Uneven Surface(QC): 6 Walk 50ft with 2 Turns (QC): 6 Walk 150 ft (QC): 6 Gait Assistive Device: Cane Small Base Quad Does the Pt use WC or Scooter?: No Stairs (FIM): 5 # of Steps: 4 1 Step (curb) (QC): 6 4 Steps (QC): 6 12 Steps (QC): 88 Picking up an Object (QC): 88 PT Plan Problem List Problem List: Activity Tolerance Treatment/Plan Treatment Plan: Continue Plan of Care Treatment Plan: Bed Mobility, Education, Functional Activity Cintia, Functional Strength, Group Therapy, Gait, Safety, Therapeutic Exercise, Transfers Treatment Duration: Jun 23, 2018 Frequency: At least 5 of 7 days/Wk (IRF) Estimated Hrs Per Day: 1.5 hours per day Patient and/or Family Agrees t: Yes Safety Risks/Education Patient Education: Gait Training, Transfer Techniques, Correct Positioning, Safety Issues Teaching Recipient: Patient Teaching Methods: Discussion Response to Teaching: Verbalize Understanding Time/GCodes Time In: 930 Time Out: 1000 Total Billed Treatment Time: 30 Total Billed Treatment 1, GT (15m) & FA (15m) G Codes Necessary: JORDEN [place] PTA Jun 05, 2018 10:11
--- NOTE | 2018-06-05 11:03 | PM&R Progress Note ---
Subjective HPI/CC On Admission Date Seen by Provider: Jun 05, 2018 Time Seen by Provider: 11:15 CC: Debility following fall with TBI with large frontal scalp hematoma left knee hematoma without fracture and left wrist nondisplaced radial styloid fx HPI: This is an 82-year-old white female who has been a patient in inpatient rehabilitation unit at [facility] 10 months ago who is a patient of Dr. Acharya 'bon who sustained a traumatic brain injury when she fell on her face after she missed a step heading into a local restaurant. She is maintained on Coumadin long-term due to hypercoagulable state with history of blood clots in the past. She was placed on the trauma service along with multiple consultants who placed her left wrist in a brace and monitor closely over the last 3 days with pain management and ambulation as much as possible with the use of incentive spirometer. Narcotic bowel is now resolved and she is currently eating lunch but has pain in her left ribs and has a history of for fractures in the past. She lives at home alone and will return to home to live independently after discharge from the rehabilitation facility. Subjective/Events-last exam INR ordered for Thursday since INR today is 1.8 while maintained on Lovenox bridge Bowel movements are maintained with prn meds Did not require any pain medication Urinary incontinence occurs at times Checked meds and labs We did speak about assisted living the last time she was here but she insists on going home. Overall responding to treatments Review of Systems General: Fatigue Objective Exam Vital Signs Vital Signs Date Time Temp Pulse Resp B/P (MAP) Pulse Ox O2 Delivery O2 Flow Rate FiO2 06/05/18 05:08 97.4 70 16 113/62 (79) 93 Room Air Capillary Refill : Less Than 3 Seconds General Appearance: No Apparent Distress, WD/WN, Chronically ill, Obese, Other HEENT: PERRL/EOMI, Normal ENT Inspection, Pharynx Normal, Moist Mucous Membranes Neck: Full Range of Motion, Normal Inspection, Non Tender, Supple Respiratory: Chest Non Tender, Lungs Clear, Normal Breath Sounds, No Accessory Muscle Use, No Respiratory Distress, Other Cardiovascular: Regular Rate, Rhythm, No Edema, No Gallop, No JVD, No Murmur Gastrointestinal: Normal Bowel Sounds, No Organomegaly, No Pulsatile Mass, Non Tender, Soft Back: Normal Inspection, No CVA Tenderness, No Vertebral Tenderness Extremity: Normal Capillary Refill, Normal Inspection, Normal Range of Motion, Non Tender, No Calf Tenderness, No Pedal Edema Neurologic/Psychiatric: Alert, Oriented x3, No Motor/Sensory Deficits, Normal Mood/Affect Skin: Normal Color, Warm/Dry Lymphatic: No Adenopathy Results/Procedures Lab Patient resulted labs reviewed. Assessment/Plan Assessment and Plan Assess & Plan/Chief Complaint Assessment: Traumatic brain injury Fall Anticoagulation long-term for hypercoagulable state with history of PE and DVT Facial ecchymosis from fall Left radius fracture placed in brace Left knee hematoma Left rib fractures Overactive bladder Depression Status post constipation still not back to normal per patient Plan: Home meds Coumadin increased to 9mg daily and Lovenox bridge ordered Pain control with Lidocaine patch Incentive spirometer Intensive therapies Bowel regimen increased and will be maintained prn Will return to her home and live independently alone upon discharge Check INR Thursday while increasing the Coumadin to 9mg and she will limit Vit K diet (1) TBI (traumatic brain injury) (2) Rib fractures (3) Confusion (4) Debility (5) Radial styloid fracture (6) Anticoagulated (7) Open head injury (8) Nausea (9) Altered mental status Clinical Quality Measures DVT/VTE Risk/Contraindication: Risk Factor Score Per Nursin RFS Level Per Nursing on Admit: 4+=Very High JOSEY MEJIA DO Jun 05, 2018 11:03
[2018-06-05] MEDS: warFARin 2 MG (COUMADIN) TAB PO SCH (17:30)
[2018-06-05] MEDS: warFARin 5 MG (COUMADIN) TAB PO SCH (17:30)
[2018-06-05 18:43] VITALS: BP 110/55
[2018-06-05] MEDS: PATCH REMOVAL TP SCH (20:18)
[2018-06-06 05:12] VITALS: BP 124/66
[2018-06-06] MEDS: LIDOCAINE 4% (SALONPAS) PATCH TOP SCH (09:13)
[2018-06-06] MEDS: CEFDINIR 300 MG (OMNICEF) CAP PO SCH (09:13)
[2018-06-06] MEDS: ENOXAPARIN 100 MG/1 ML (LOVENOX) SYR SC SCH ×2 (09:13→20:24)
[2018-06-06] MEDS: VITAMIN D3 1,000 UNITS (CHOLECALCIFEROL) TABLET PO SCH (09:14)
[2018-06-06] MEDS: OXYBUTYNIN (DITROPAN) 5 MG TAB PO SCH ×2 (09:14→20:25)
--- NOTE | 2018-06-06 11:13 | PM&R Progress Note ---
Subjective HPI/CC On Admission Date Seen by Provider: Jun 06, 2018 Time Seen by Provider: 11:15 CC: Debility following fall with TBI with large frontal scalp hematoma left knee hematoma without fracture and left wrist nondisplaced radial styloid fx HPI: This is an 82-year-old white female who has been a patient in inpatient rehabilitation unit at [facility] 10 months ago who is a patient of Dr. Acharya 'bon who sustained a traumatic brain injury when she fell on her face after she missed a step heading into a local restaurant. She is maintained on Coumadin long-term due to hypercoagulable state with history of blood clots in the past. She was placed on the trauma service along with multiple consultants who placed her left wrist in a brace and monitor closely over the last 3 days with pain management and ambulation as much as possible with the use of incentive spirometer. Narcotic bowel is now resolved and she is currently eating lunch but has pain in her left ribs and has a history of for fractures in the past. She lives at home alone and will return to home to live independently after discharge from the rehabilitation facility. Subjective/Events-last exam INR ordered for Thursday since INR yesterday was 1.8 while maintained on Lovenox bridge She updated me on the fact that she does have a filter in place but due to her immobile state until just the past 2 days and her numerous clots in the past I felt compelled to initiate the Lovenox injections until INR therapeutic Bowel movements are maintained with prn meds No pain is reported Checked meds and labs We did speak about assisted living Overall responding to treatments Review of Systems General: Fatigue Objective Exam Vital Signs Vital Signs Date Time Temp Pulse Resp B/P (MAP) Pulse Ox O2 Delivery O2 Flow Rate FiO2 06/06/18 09:00 Room Air 06/06/18 05:12 98.6 72 16 124/66 (85) 96 Capillary Refill : Less Than 3 Seconds General Appearance: No Apparent Distress, WD/WN, Chronically ill, Obese, Other HEENT: PERRL/EOMI, Normal ENT Inspection, Pharynx Normal, Moist Mucous Membranes Neck: Full Range of Motion, Normal Inspection, Non Tender, Supple Respiratory: Chest Non Tender, Lungs Clear, Normal Breath Sounds, No Accessory Muscle Use, No Respiratory Distress, Other Cardiovascular: Regular Rate, Rhythm, No Edema, No Gallop, No JVD, No Murmur Gastrointestinal: Normal Bowel Sounds, No Organomegaly, No Pulsatile Mass, Non Tender, Soft Back: Normal Inspection, No CVA Tenderness, No Vertebral Tenderness Extremity: Normal Capillary Refill, Normal Inspection, Normal Range of Motion, Non Tender, No Calf Tenderness, No Pedal Edema Neurologic/Psychiatric: Alert, Oriented x3, No Motor/Sensory Deficits, Normal Mood/Affect Skin: Normal Color, Warm/Dry Lymphatic: No Adenopathy Results/Procedures Lab Patient resulted labs reviewed. 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 Facial ecchymosis from fall Left radius fracture placed in brace Left knee hematoma Left rib fractures Overactive bladder Depression Status post constipation now resolved Plan: Home meds Coumadin increased to 9mg daily and Lovenox bridge ordered check INR in am Pain control with Lidocaine patch Incentive spirometer Intensive therapies Bowel regimen increased and will be maintained prn Will return to her home and live independently alone upon discharge Check INR Thursday while increasing the Coumadin to 9mg and she will limit Vit K diet (1) TBI (traumatic brain injury) (2) Rib fractures (3) Confusion (4) Debility (5) Radial styloid fracture (6) Anticoagulated (7) Open head injury (8) Nausea (9) Altered mental status Clinical Quality Measures DVT/VTE Risk/Contraindication: Risk Factor Score Per Nursin RFS Level Per Nursing on Admit: 4+=Very High JOSEY MEJIA DO Jun 06, 2018 11:13
[2018-06-06] MEDS: warFARin 5 MG (COUMADIN) TAB PO SCH (17:35)
[2018-06-06] MEDS: warFARin 2 MG (COUMADIN) TAB PO SCH (17:35)
[2018-06-06 18:00] VITALS: BP 119/68
[2018-06-06] MEDS: PATCH REMOVAL TP SCH (20:25)
[2018-06-07 05:05] VITALS: BP 115/66
[2018-06-07 05:14] LABS: INR 2.2 (0.8-1.4); PROTHROMBIN TIME PATIENT 25.3 SEC (12.2-14.7)
--- NOTE | 2018-06-07 08:16 | PM&R Progress Note ---
Subjective HPI/CC On Admission Date Seen by Provider: Jun 07, 2018 Time Seen by Provider: 08:15 CC: Debility following fall with TBI with large frontal scalp hematoma left knee hematoma without fracture and left wrist nondisplaced radial styloid fx HPI: This is an 82-year-old white female who has been a patient in inpatient rehabilitation unit at [facility] 10 months ago who is a patient of Dr. Acharya 'bon who sustained a traumatic brain injury when she fell on her face after she missed a step heading into a local restaurant. She is maintained on Coumadin long-term due to hypercoagulable state with history of blood clots in the past. She was placed on the trauma service along with multiple consultants who placed her left wrist in a brace and monitor closely over the last 3 days with pain management and ambulation as much as possible with the use of incentive spirometer. Narcotic bowel is now resolved and she is currently eating lunch but has pain in her left ribs and has a history of for fractures in the past. She lives at home alone and will return to home to live independently after discharge from the rehabilitation facility. Subjective/Events-last exam INR is 2.2 today so will discontinue Lovenox injections Maintained on Coumadin of 9 mg daily Denies any pain No falls Thought process is clearing up Objective Exam Vital Signs Vital Signs Date Time Temp Pulse Resp B/P (MAP) Pulse Ox O2 Delivery O2 Flow Rate FiO2 06/07/18 17:39 98.6 66 20 128/69 (88) 98 Room Air Capillary Refill : Less Than 3 Seconds General Appearance: No Apparent Distress, WD/WN, Chronically ill, Obese, Other HEENT: PERRL/EOMI, Normal ENT Inspection, Pharynx Normal, Moist Mucous Membranes Neck: Full Range of Motion, Normal Inspection, Non Tender, Supple Respiratory: Chest Non Tender, Lungs Clear, Normal Breath Sounds, No Accessory Muscle Use, No Respiratory Distress, Other Cardiovascular: Regular Rate, Rhythm, No Edema, No Gallop, No JVD, No Murmur Gastrointestinal: Normal Bowel Sounds, No Organomegaly, No Pulsatile Mass, Non Tender, Soft Back: Normal Inspection, No CVA Tenderness, No Vertebral Tenderness Extremity: Normal Capillary Refill, Normal Inspection, Normal Range of Motion, Non Tender, No Calf Tenderness, No Pedal Edema Neurologic/Psychiatric: Alert, Oriented x3, No Motor/Sensory Deficits, Normal Mood/Affect Skin: Normal Color, Warm/Dry Lymphatic: No Adenopathy Results/Procedures Lab Patient resulted labs reviewed. 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 Facial ecchymosis from fall Left radius fracture placed in brace Left knee hematoma Left rib fractures Overactive bladder Depression Status post constipation now resolved Plan: Home meds Coumadin increased to 9mg daily and Lovenox bridge DC since INR 2.2 Pain control with Lidocaine patch Incentive spirometer Intensive therapies Bowel regimen increased and will be maintained prn Will return to her home and live independently alone upon discharge (1) TBI (traumatic brain injury) (2) Rib fractures (3) Confusion (4) Debility (5) Radial styloid fracture (6) Anticoagulated (7) Open head injury (8) Nausea (9) Altered mental status Clinical Quality Measures DVT/VTE Risk/Contraindication: Risk Factor Score Per Nursin RFS Level Per Nursing on Admit: 4+=Very High JOSEY MEJIA DO Jun 07, 2018 08:16
[2018-06-07 08:27] VITALS: BP 135/60
--- NOTE | 2018-06-07 08:29 | Occupational Ther Daily Note ---
OT Current Status-Daily Note Subjective Pt alert, sitting in recliner. Pt agrees to therapy. No c/o pain at this time. Mental Status/Objective Patient Orientation: Person, Place, Time, Situation Therapy Code Descriptions/Definitions Functional [place] Measure: 0=Not Assessed/NA 4=Minimal Assistance 1=Total Assistance 5=Supervision or Setup 2=Maximal Assistance 6=Modified [place] 3=Moderate Assistance 7=Complete [place] ADL-Treatment Therapy Code Descriptions/Definitions Functional [place] Measure: 0=Not Assessed/NA 4=Minimal Assistance 1=Total Assistance 5=Supervision or Setup 2=Maximal Assistance 6=Modified [place] 3=Moderate Assistance 7=Complete [place] Therapy Quality Codes: 6 Independent with activity with or without an assistive device 5 Patient requires set up or clean up by helper. Patient completes activity by themselves 4 Supervision or touching assist (CGA). [place] provide cues , steadying assist 3 The helper provides less than half the effort to complete the activity 2 The helper provides more than half the effort to complete the activity 1 Dependent. The helper does all the effort to complete an activity 7 Patient refused to complete or attempt activity 9 The patient did not perform the activity before the current illness or injury 88 Not attempted due to Medical conditions or safety concerns Grooming (FIM): 5 (Supervision standing at sink to complete grooming, balancing with counter.) Oral Hygiene (QC): 4 Bathing (FIM): 5 (Using seat with cutout, hand held shower, long handle sponge and grabbars pt able to complete bathing with supervision.) Bathing Location: L Arm, R Arm, L Upper Leg, R Upper Leg, L Lower Leg ( including foot), R Lower Leg (including foot), Chest, Abdomen, Buttocks, Perineal Area Shower/Bathe Self (QC): 4 Upper Body (FIM): 5 (Set up only.) Upper Body Dressing (QC): 5 Lower Body Dressing (FIM): 5 (Supervision in standing to hike pants over hips. Completes all other dressing by self after set up.) Lower Body Dressing (QC): 4 On/Off Footwear (QC): 6 Toileting (FIM): 5 (Supervision using grabbars and cane to hike pants over hips. Cleansed self after voiding.) Toileting Hygiene (QC): 4 Toilet/Commode Transfer (FIM): 6 (Using FWW and grabbars, pt able to complete.) Toilet Transfer (QC): 6 Shower Transfer(FIM): 6 (Using grabbar, shower chair (BSC) and grabbars pt able to complete.) Other Treatment Pt was able to complete laundry with supervision using cane for stability. Pt then ambulated to therapy gym to complete arm bike 15 min at 15 hernández resistance with R UE only to increase strength and activity tolerance for daily functional tasks. After therapy, pt sitting in recliner with call light/phone in reach. All needs met in room. OT Short Term Goals Short Term Goals Time Frame: Jun 07, 2018 Upper Body Dressing(FIM): 5 Lower Body Dressing(FIM): 5 Toileting(FIM): 5 Toilet/Commode Transfer(FIM): 5 Additional Short Term Goals: 1-Demonstrate ADL Tasks, 2-Verbalize Understanding , 3-ImproveStrength/Cintia 1=Demonstrate adherence to instructed precautions during ADL tasks. 2=Patient will verbalize/demonstrate understanding of assistive devices/ modifications for ADL. 3=Patient will improve strength/tolerance for activity to enable patient to perform ADL's. OT Chief Contract Officer Goals Mcfp Goals Time Frame: Jun 21, 2018 Eating (FIM): 6 Eating (QC): 6 Groomin Oral Hygiene (QC): 6 Bathing(FIM): 6 Shower/Bathe Self (QC): 6 Upper Body Dressing(FIM): 6 Upper Body Dressing (QC): 6 Lower Body Dressing(FIM): 6 Lower Body Dressing (QC): 6 On/Off Footwear (QC): 6 Toileting(FIM): 6 Toileting Hygiene (QC): 6 Toilet/Commode Transfer(FIM): 6 Toilet/Commode Transfer (QC): 6 Shower Transfer(FIM): 6 Additional Goals: 1-Demonstrate ADL Tasks, 2-Verbalize Understanding, 3- ImproveStrength/Cintia 1=Demonstrate adherence to instructed precautions during ADL tasks. 2=Patient will verbalize/demonstrate understanding of assistive devices/ modifications for ADL. 3=Patient will improve strength/tolerance for activity to enable patient to perform ADL's. OT Education/Plan Problem List/Assessment Assessment: Impaired Self-Care Skills, Restricted Funct UE ROM Discharge Recommendations Plan/Recommendations: Continue POC Treatment Plan/Plan of Care Patient would benefit from OT for education, treatment and training to promote independence in ADL's, mobility, safety and/or upper extremity function for ADL' s. Plan of Care: ADL Retraining, Functional Mobility, Group Exercise/Act as Ind, UE Funct Exercise/Act Treatment Duration: Jun 21, 2018 Frequency: At least 5 of 7 days/Wk (IRF) Estimated Hrs Per Day: 1.5 hours per day Agreement: Yes Rehab Potential: Good Time/GCodes Start Time: 07:00 Stop Time: 08:30 Total Time Billed (hr/min): 90 Billed Treatment Time 1 visit-ADL 1 (60 min) FA 1 (15 min) EX 1 (15 min) PAULINO MEJIA Jun 07, 2018 08:29
[2018-06-07] MEDS: OXYBUTYNIN (DITROPAN) 5 MG TAB PO SCH ×2 (09:04→20:38)
[2018-06-07] MEDS: LIDOCAINE 4% (SALONPAS) PATCH TOP SCH (09:04)
[2018-06-07] MEDS: VITAMIN D3 1,000 UNITS (CHOLECALCIFEROL) TABLET PO SCH (09:05)
--- NOTE | 2018-06-07 09:47 | NUR ---
PT EATING WELL, 100% MEALS. WT DOWN SLIGHTLY. WILL CONTINUE TO FOLLOW AND INTERVENE IF NEEDED.
[2018-06-07] MEDS: ACETAMINOPHEN 500 MG TAB (TYLENOL) PO PRN (11:04)
--- NOTE | 2018-06-07 13:33 | Physical Therapy Daily Note ---
PT Daily Note-Current Subjective Pt. feels she has made progress and is having less pain in face and left knee. Pain Location: No Pain Reported Mental Status Patient Orientation: Normal For Age Attachments: Other-See Comments (left wrist splint) Transfers Therapy Code Descriptions/Definitions Functional [place] Measure: 0=Not Assessed/NA 4=Minimal Assistance 1=Total Assistance 5=Supervision or Setup 2=Maximal Assistance 6=Modified [place] 3=Moderate Assistance 7=Complete [place] Therapy Quality Codes: 6 Independent with activity with or without an assistive device 5 Patient requires set up or clean up by helper. Patient completes activity by themselves 4 Supervision or touching assist (CGA). [place] provide cues , steadying assist 3 The helper provides less than half the effort to complete the activity 2 The helper provides more than half the effort to complete the activity 1 Dependent. The helper does all the effort to complete an activity 7 Patient refused to complete or attempt activity 9 The patient did not perform the activity before the current illness or injury 88 Not attempted due to Medical conditions or safety concerns Transfers (B, C, W/C) (FIM): 5 Scootin Rollin Supine to/from Sit: 5 Sit to/from Stand: 5 Bed to/from Chair: 5 all TRFs SBA, in out car simulator SB A Weight Bearing Right Lower Extremity: Right Full Weight Bearing Left Lower Extremity: Left Full Weight Bearing NWB left UE Gait Training Does the Patient Walk?: Yes Gait (FIM): 5 Distance (FIM): 3=150 ft (150x3, 75x2) Gait Level of Assist: 5 Gait Persons Needed: 1 Gait Assistive Device: Cane Large Base Quad side step, turns and some retro, no LOB, slow, careful Stair Training Stair Training: Handrails/: 1 handrail Stairs (FIM): 2 #of Steps: 4 Stairs: Pattern: Step to Level of Assist: 4 up down small pink step inside parallel bars, instruction for sequence Exercises Supine Ex: Bridging, Ankle pumps, Quad Set, Rolling, Glut sets, Heel Slides, Short Arc Quads, Scooting, Straight leg raise, Hip abd/add Supine Reps: 25 Seated Therapy Exercises: Ankle pumps, Sit to stand, Long arc quads, Hip flexion, Hip abd/add Seated Reps: 25 Standing: Hip Abduction, Heel/toe raises, 3 way Ex=Flex, Abd, Ext, Marching, Mini squats, Sit to Stand Standing Reps: 12 NuStep Minutes: 12 NuStep Workload: 5 Treatments toileted with min to SBA, assist for clothing down and up Assessment Current Status: Good Progress PT Short Term Goals Short Term Goals Time Frame: Jun 07, 2018 Gait (FIM): 2 Distance (FIM): 3=150 ft Gait Assistive Device: Cane Small Base Quad PT Chcf Goals Pie Filling Mixer Goals PT Chcf Goals Time Frame: Jun 23, 2018 Transfers (B,C,W/C) (FIM): 6 Sit to Lying (QC): 6 Lying-Sitting on Side/Bed(QC): 6 Sit to Stand (QC): 6 Rollin Roll Left to Right (QC): 6 Chair/[id number] Xfer(QC): 6 Car Transfer (QC): 6 Does the Patient Walk: Yes Gait (FIM): 6 Gait distance (FIM): 3=150 ft Walk 10 feet (QC): 6 Walk 10ft-Uneven Surface(QC): 6 Walk 50ft with 2 Turns (QC): 6 Walk 150 ft (QC): 6 Gait Assistive Device: Cane Small Base Quad Does the Pt use WC or Scooter?: No Stairs (FIM): 5 # of Steps: 4 1 Step (curb) (QC): 6 4 Steps (QC): 6 12 Steps (QC): 88 Picking up an Object (QC): 88 PT Plan Treatment/Plan Treatment Plan: Continue Plan of Care Treatment Plan: Bed Mobility, Education, Functional Activity Cintia, Functional Strength, Group Therapy, Gait, Safety, Therapeutic Exercise, Transfers Treatment Duration: Jun 23, 2018 Frequency: At least 5 of 7 days/Wk (IRF) Estimated Hrs Per Day: 1.5 hours per day Patient and/or Family Agrees t: Yes Safety Risks/Education Patient Education: Gait Training, Transfer Techniques, Steps, Correct Positioning, Disease Process, Safety Issues Teaching Recipient: Patient Teaching Methods: Demonstration, Discussion Response to Teaching: Verbalize Understanding, Return Demonstration, Reinforcement Needed Time/GCodes Time In: 1100 (1300) Time Out: 1200 (1330) Total Billed Treatment Time: 90 Total Billed Treatment 1x2,FA25m,EX45m,GT20m G Codes Necessary: No ZION COLEY INVENTORY CONTROL SPECIALIST Jun 07, 2018 13:33
[2018-06-07 17:39] VITALS: BP 128/69
[2018-06-07] MEDS: warFARin 5 MG (COUMADIN) TAB PO SCH (17:45)
[2018-06-07] MEDS: warFARin 2 MG (COUMADIN) TAB PO SCH (17:45)
[2018-06-07] MEDS: PATCH REMOVAL TP SCH (20:38)
[2018-06-08 06:00] VITALS: BP 126/66
--- NOTE | 2018-06-08 08:31 | Occupational Ther Daily Note ---
OT Current Status-Daily Note Subjective Pt alert, sitting in recliner. Pt agrees to therapy. No c/o pain at this time. Pt states that she had a difficulty time getting comfortable to sleep last night. Mental Status/Objective Patient Orientation: Person, Place, Time Therapy Code Descriptions/Definitions Functional [place] Measure: 0=Not Assessed/NA 4=Minimal Assistance 1=Total Assistance 5=Supervision or Setup 2=Maximal Assistance 6=Modified [place] 3=Moderate Assistance 7=Complete [place] ADL-Treatment Pt declined shower, agrees to sponge bath. Pt ambulated to closet to retrieve clothing using cane with supervision. Pt able to transport clothing to bathroom. Pt transferred to toilet using cane and grabbar by self. Pt able to cleanse self after toileting though inefficient with cleansing buttocks. Pt given cleansing clothes and was able to complete sponge bath in sitting. Pt donned/doffed clothing by self. Pt stood at sink to complete own grooming with supervision, using counter to stabilize self. Pt then ambulated back to recliner to change socks. Therapy Code Descriptions/Definitions Functional [place] Measure: 0=Not Assessed/NA 4=Minimal Assistance 1=Total Assistance 5=Supervision or Setup 2=Maximal Assistance 6=Modified [place] 3=Moderate Assistance 7=Complete [place] Therapy Quality Codes: 6 Independent with activity with or without an assistive device 5 Patient requires set up or clean up by helper. Patient completes activity by themselves 4 Supervision or touching assist (CGA). [place] provide cues , steadying assist 3 The helper provides less than half the effort to complete the activity 2 The helper provides more than half the effort to complete the activity 1 Dependent. The helper does all the effort to complete an activity 7 Patient refused to complete or attempt activity 9 The patient did not perform the activity before the current illness or injury 88 Not attempted due to Medical conditions or safety concerns Grooming (FIM): 5 Oral Hygiene (QC): 4 Bathing (FIM): 5 Shower/Bathe Self (QC): 4 Upper Body (FIM): 5 Upper Body Dressing (QC): 4 (Supervision to retrieve clothing only.) Lower Body Dressing (FIM): 5 Lower Body Dressing (QC): 4 (Supervision to retrieve clothing.) On/Off Footwear (QC): 6 Toileting (FIM): 5 Toileting Hygiene (QC): 4 Toilet/Commode Transfer (FIM): 5 Toilet Transfer (QC): 4 Other Treatment Pt ambulated to therapy gym completing UE exercises to increase strength and activity tolerance for daily functional tasks. Arm bike 15 min at 15 hernández resistance, no breaks. Using only R UE, 3# wt with arm exercises 3 sets 10 reps. Pt ambulated back to room. After therapy, pt sitting in recliner with call light/phone in reach. All needs met in room. OT Short Term Goals Short Term Goals Time Frame: Jun 07, 2018 Upper Body Dressing(FIM): 5 Lower Body Dressing(FIM): 5 Toileting(FIM): 5 Toilet/Commode Transfer(FIM): 5 Additional Short Term Goals: 1-Demonstrate ADL Tasks, 2-Verbalize Understanding , 3-ImproveStrength/Cintia 1=Demonstrate adherence to instructed precautions during ADL tasks. 2=Patient will verbalize/demonstrate understanding of assistive devices/ modifications for ADL. 3=Patient will improve strength/tolerance for activity to enable patient to perform ADL's. OT Fci Goals Fci Goals Time Frame: Jun 21, 2018 Eating (FIM): 6 Eating (QC): 6 Groomin Oral Hygiene (QC): 6 Bathing(FIM): 6 Shower/Bathe Self (QC): 6 Upper Body Dressing(FIM): 6 Upper Body Dressing (QC): 6 Lower Body Dressing(FIM): 6 Lower Body Dressing (QC): 6 On/Off Footwear (QC): 6 Toileting(FIM): 6 Toileting Hygiene (QC): 6 Toilet/Commode Transfer(FIM): 6 Toilet/Commode Transfer (QC): 6 Shower Transfer(FIM): 6 Additional Goals: 1-Demonstrate ADL Tasks, 2-Verbalize Understanding, 3- ImproveStrength/Cintia 1=Demonstrate adherence to instructed precautions during ADL tasks. 2=Patient will verbalize/demonstrate understanding of assistive devices/ modifications for ADL. 3=Patient will improve strength/tolerance for activity to enable patient to perform ADL's. OT Education/Plan Problem List/Assessment Assessment: Impaired Self-Care Skills, Restricted Funct UE ROM Discharge Recommendations Plan/Recommendations: Continue POC Treatment Plan/Plan of Care Patient would benefit from OT for education, treatment and training to promote independence in ADL's, mobility, safety and/or upper extremity function for ADL' s. Plan of Care: ADL Retraining, Functional Mobility, Group Exercise/Act as Ind, UE Funct Exercise/Act Treatment Duration: Jun 21, 2018 Frequency: At least 5 of 7 days/Wk (IRF) Estimated Hrs Per Day: 1.5 hours per day Agreement: Yes Rehab Potential: Good Time/GCodes Start Time: 07:00 Stop Time: 08:30 Total Time Billed (hr/min): 90 Billed Treatment Time 1 visit-ADL 3 (45 min) EX 3 (45 min) PAULINO MEJIA Jun 08, 2018 08:31
[2018-06-08] MEDS: VITAMIN D3 1,000 UNITS (CHOLECALCIFEROL) TABLET PO SCH (08:36)
[2018-06-08] MEDS: LIDOCAINE 4% (SALONPAS) PATCH TOP SCH (08:36)
[2018-06-08] MEDS: OXYBUTYNIN (DITROPAN) 5 MG TAB PO SCH ×2 (08:36→20:32)
--- NOTE | 2018-06-08 08:44 | PM&R Progress Note ---
Subjective HPI/CC On Admission Date Seen by Provider: Jun 08, 2018 Time Seen by Provider: 08:30 CC: Debility following fall with TBI with large frontal scalp hematoma left knee hematoma without fracture and left wrist nondisplaced radial styloid fx HPI: This is an 82-year-old white female who has been a patient in inpatient rehabilitation unit at [facility] 10 months ago who is a patient of Dr. Acharya 's who sustained a traumatic brain injury when she fell on her face after she missed a step heading into a local restaurant. She is maintained on Coumadin long-term due to hypercoagulable state with history of blood clots in the past. She was placed on the trauma service along with multiple consultants who placed her left wrist in a brace and monitor closely over the last 3 days with pain management and ambulation as much as possible with the use of incentive spirometer. Narcotic bowel is now resolved and she is currently eating lunch but has pain in her left ribs and has a history of for fractures in the past. She lives at home alone and will return to home to live independently after discharge from the rehabilitation facility. Subjective/Events-last exam Pt doing well. INR will be checked tomorrow. Has an appointment with Dr. Montes for left wrist fracture on June 16. Denies any pain. Feeling stronger and wants to go home either later this week or Thursday. Review of Systems General: Fatigue Objective Exam Vital Signs Vital Signs Date Time Temp Pulse Resp B/P (MAP) Pulse Ox O2 Delivery O2 Flow Rate FiO2 06/08/18 17:12 97.4 72 20 131/60 (83) 96 Room Air Capillary Refill : Less Than 3 Seconds General Appearance: No Apparent Distress, WD/WN, Chronically ill, Obese, Other HEENT: PERRL/EOMI, Normal ENT Inspection, Pharynx Normal, Moist Mucous Membranes Neck: Full Range of Motion, Normal Inspection, Non Tender, Supple Respiratory: Chest Non Tender, Lungs Clear, Normal Breath Sounds, No Accessory Muscle Use, No Respiratory Distress, Other Cardiovascular: Regular Rate, Rhythm, No Edema, No Gallop, No JVD, No Murmur Gastrointestinal: Normal Bowel Sounds, No Organomegaly, No Pulsatile Mass, Non Tender, Soft Back: Normal Inspection, No CVA Tenderness, No Vertebral Tenderness Extremity: Normal Capillary Refill, Normal Inspection, Normal Range of Motion, Non Tender, No Calf Tenderness, No Pedal Edema Neurologic/Psychiatric: Alert, Oriented x3, No Motor/Sensory Deficits, Normal Mood/Affect Skin: Normal Color, Warm/Dry Lymphatic: No Adenopathy Results/Procedures Lab Patient resulted labs reviewed. 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 Facial ecchymosis from fall Left radius fracture placed in brace Left knee hematoma Left rib fractures Overactive bladder Depression Status post constipation now resolved Plan: Home meds Coumadin increased to 9mg daily and Lovenox bridge DC since INR 2.2 checking in am Pain control with Lidocaine patch Incentive spirometer Intensive therapies Bowel regimen increased and will be maintained prn Will return to her home and live independently alone upon discharge (1) TBI (traumatic brain injury) (2) Rib fractures (3) Confusion (4) Debility (5) Radial styloid fracture (6) Anticoagulated (7) Open head injury (8) Nausea (9) Altered mental status Clinical Quality Measures DVT/VTE Risk/Contraindication: Risk Factor Score Per Nursin RFS Level Per Nursing on Admit: 4+=Very High JOSEY MEJIA DO Jun 08, 2018 08:44
[2018-06-08] MEDS: ACETAMINOPHEN 500 MG TAB (TYLENOL) PO PRN (09:26)
--- NOTE | 2018-06-08 10:13 | Physical Therapy Daily Note ---
PT Daily Note-Current Subjective Pt sitting in recliner upon arrival. Pt agrees to PT. Pain Numeric Pain Scale: 3 Location: Left Location Body Site: Knee Pain Description: Ache Mental Status Patient Orientation: Person, Place, Time, Situation Transfers Therapy Code Descriptions/Definitions Functional [place] Measure: 0=Not Assessed/NA 4=Minimal Assistance 1=Total Assistance 5=Supervision or Setup 2=Maximal Assistance 6=Modified [place] 3=Moderate Assistance 7=Complete [place] Therapy Quality Codes: 6 Independent with activity with or without an assistive device 5 Patient requires set up or clean up by helper. Patient completes activity by themselves 4 Supervision or touching assist (CGA). [place] provide cues , steadying assist 3 The helper provides less than half the effort to complete the activity 2 The helper provides more than half the effort to complete the activity 1 Dependent. The helper does all the effort to complete an activity 7 Patient refused to complete or attempt activity 9 The patient did not perform the activity before the current illness or injury 88 Not attempted due to Medical conditions or safety concerns Scootin Sit to/from Stand: 5 Sit to Stand (QC): 5 Weight Bearing Right Lower Extremity: Right Full Weight Bearing Left Lower Extremity: Left Full Weight Bearing NWB left UE Gait Training Does the Patient Walk?: Yes Distance (FIM): 3=150 ft Distance: 250' Walk 10 feet (QC): 5 Walk 50 ft with 2 Turns(QC): 5 Walk 150 ft (QC): 5 Gait Level of Assist: 5 Gait Persons Needed: 1 Gait Assistive Device: Cane Large Base Quad Wheelchair Training Does the Pt Use a Wheelchair?: No Stair Training Stair Training: Handrails/: uses cane #of Steps: 1 1 Step (curb) (QC): 4 Stairs: Pattern: Step to Level of Assist: 4 Exercises Supine Ex: Ankle pumps, Quad Set, Glut sets, Heel Slides, Straight leg raise, Hip abd/add Supine Reps: 15 NuStep Minutes: 15 NuStep Workload: 5 Treatments Pt transfers and ambulates using LBQC in hallway. Pt uses NuStep for 15m at WL 5 then completes Supine Ex on mat. Pt attempts single step using only LBQC. Pt returns to room at end of tx with all needs met. Assessment Current Status: Good Progress Pt continues to improve more each day but is nervous for possible upcoming DC. PT Short Term Goals Short Term Goals Time Frame: Jun 07, 2018 Gait (FIM): 2 Distance (FIM): 3=150 ft Gait Assistive Device: Cane Small Base Quad PT Electric Meter Repairer Helper Goals Electric Meter Repairer Helper Goals PT Care Home Goals Time Frame: Jun 23, 2018 Transfers (B,C,W/C) (FIM): 6 Sit to Lying (QC): 6 Lying-Sitting on Side/Bed(QC): 6 Sit to Stand (QC): 6 Rollin Roll Left to Right (QC): 6 Chair/[id number]-Jjcnq Xfer(QC): 6 Car Transfer (QC): 6 Does the Patient Walk: Yes Gait (FIM): 6 Gait distance (FIM): 3=150 ft Walk 10 feet (QC): 6 Walk 10ft-Uneven Surface(QC): 6 Walk 50ft with 2 Turns (QC): 6 Walk 150 ft (QC): 6 Gait Assistive Device: Cane Small Base Quad Does the Pt use WC or Scooter?: No Stairs (FIM): 5 # of Steps: 4 1 Step (curb) (QC): 6 4 Steps (QC): 6 12 Steps (QC): 88 Picking up an Object (QC): 88 PT Plan Problem List Problem List: Activity Tolerance, Functional Strength Treatment/Plan Treatment Plan: Continue Plan of Care Treatment Plan: Bed Mobility, Education, Functional Activity Cintia, Functional Strength, Group Therapy, Gait, Safety, Therapeutic Exercise, Transfers Treatment Duration: Jun 23, 2018 Frequency: At least 5 of 7 days/Wk (IRF) Estimated Hrs Per Day: 1.5 hours per day Patient and/or Family Agrees t: Yes Safety Risks/Education Patient Education: Gait Training, Transfer Techniques, Steps, Correct Positioning, Safety Issues Teaching Recipient: Patient Teaching Methods: Discussion Response to Teaching: Verbalize Understanding Time/GCodes Time In: 900 Time Out: 1000 Total Billed Treatment Time: 60 Total Billed Treatment 1, GT (20m), EX x2 (30m) & FA (10m) G Codes Necessary: JORDEN Vail PTA Jun 08, 2018 10:13
--- NOTE | 2018-06-08 11:00 | NUR ---
Pastoral care visit.
--- NOTE | 2018-06-08 14:52 | Physical Therapy Daily Note ---
PT Daily Note-Current Subjective Pt sitting in recliner upon arrival. Pt agrees to PT. Pain Numeric Pain Scale: 3 Location Body Site: Knee Pain Description: Ache Mental Status Patient Orientation: Person, Place, Time, Situation Transfers Therapy Code Descriptions/Definitions Functional [place] Measure: 0=Not Assessed/NA 4=Minimal Assistance 1=Total Assistance 5=Supervision or Setup 2=Maximal Assistance 6=Modified [place] 3=Moderate Assistance 7=Complete [place] Therapy Quality Codes: 6 Independent with activity with or without an assistive device 5 Patient requires set up or clean up by helper. Patient completes activity by themselves 4 Supervision or touching assist (CGA). [place] provide cues , steadying assist 3 The helper provides less than half the effort to complete the activity 2 The helper provides more than half the effort to complete the activity 1 Dependent. The helper does all the effort to complete an activity 7 Patient refused to complete or attempt activity 9 The patient did not perform the activity before the current illness or injury 88 Not attempted due to Medical conditions or safety concerns Scootin Sit to/from Stand: 5 Sit to Stand (QC): 5 Weight Bearing Right Lower Extremity: Right Full Weight Bearing Left Lower Extremity: Left Full Weight Bearing NWB left UE Gait Training Does the Patient Walk?: Yes Distance (FIM): 3=150 ft Distance: 150' Walk 10 feet (QC): 5 Walk 50 ft with 2 Turns(QC): 5 Walk 150 ft (QC): 5 Gait Level of Assist: 5 Gait Persons Needed: 1 Gait Assistive Device: Cane Large Base Quad Pt walks with a slight shuffle, drifting L when ambulating especially while fatigued. Wheelchair Training Does the Pt Use a Wheelchair?: No Stair Training Stair Training: Handrails/: 2 handrails, uses cane #of Steps: 10 1 Step (curb) (QC): 5 Stairs: Pattern: Step to Level of Assist: 4 Exercises Seated Therapy Exercises: Sit to stand Treatments Pt transfers from recliner to standing then ambulates in hallway. Pt completes single step in //bars x10 before returning to to room to rest in recliner. Pt has all needs met. Assessment Current Status: Good Progress Pt fatigues by end of tx but has improved with transfers and mobility. PT Short Term Goals Short Term Goals Time Frame: Jun 07, 2018 Gait (FIM): 2 Distance (FIM): 3=150 ft Gait Assistive Device: Cane Small Base Quad PT Fdc Goals Lead Relay Tester Goals PT Fdc Goals Time Frame: Jun 23, 2018 Transfers (B,C,W/C) (FIM): 6 Sit to Lying (QC): 6 Lying-Sitting on Side/Bed(QC): 6 Sit to Stand (QC): 6 Rollin Roll Left to Right (QC): 6 Chair/[id number]-Wtbfh Xfer(QC): 6 Car Transfer (QC): 6 Does the Patient Walk: Yes Gait (FIM): 6 Gait distance (FIM): 3=150 ft Walk 10 feet (QC): 6 Walk 10ft-Uneven Surface(QC): 6 Walk 50ft with 2 Turns (QC): 6 Walk 150 ft (QC): 6 Gait Assistive Device: Cane Small Base Quad Does the Pt use WC or Scooter?: No Stairs (FIM): 5 # of Steps: 4 1 Step (curb) (QC): 6 4 Steps (QC): 6 12 Steps (QC): 88 Picking up an Object (QC): 88 PT Plan Problem List Problem List: Activity Tolerance Treatment/Plan Treatment Plan: Continue Plan of Care Treatment Plan: Bed Mobility, Education, Functional Activity Cintia, Functional Strength, Group Therapy, Gait, Safety, Therapeutic Exercise, Transfers Treatment Duration: Jun 23, 2018 Frequency: At least 5 of 7 days/Wk (IRF) Estimated Hrs Per Day: 1.5 hours per day Patient and/or Family Agrees t: Yes Safety Risks/Education Patient Education: Gait Training, Transfer Techniques, Correct Positioning, Safety Issues Teaching Recipient: Patient Teaching Methods: Discussion Response to Teaching: Verbalize Understanding Time/GCodes Time In: 1300 Time Out: 1330 Total Billed Treatment Time: 30 Total Billed Treatment 1, GT (15m) & EX (15m) G Codes Necessary: JORDEN Vail PLANT BREEDER SCIENTIST Jun 08, 2018 14:52
[2018-06-08 17:12] VITALS: BP 131/60
[2018-06-08] MEDS: warFARin 2 MG (COUMADIN) TAB PO SCH (17:27)
[2018-06-08] MEDS: warFARin 5 MG (COUMADIN) TAB PO SCH (17:27)
[2018-06-08] MEDS: PATCH REMOVAL TP SCH (20:32)
[2018-06-09 05:29] VITALS: BP 103/63
[2018-06-09 05:50] LABS: BASOPHILS % (AUTO) 1 % (0-10); EOSINOPHILS # (AUTO) 0.3 10^3/uL (0.0-0.3); EOSINOPHILS % (AUTO) 7 % (0-10); HEMATOCRIT 33 % (35-52); HEMOGLOBIN 10.7 G/DL (11.5-16.0); LYMPHOCYTES # (AUTO) 1.2 X 10^3 (1.0-4.0); LYMPHOCYTES % (AUTO) 30 % (12-44); MEAN CORPUSCULAR HEMOGLOBIN 32 PG (25-34); MEAN CORPUSCULAR HGB CONC 32 G/DL (32-36); MEAN CORPUSCULAR VOLUME 100 FL (80-99); MEAN PLATELET VOLUME 9.4 FL (7.4-10.4); MONOCYTES # (AUTO) 0.4 X 10^3 (0.0-1.0); MONOCYTES % (AUTO) 10 % (0-12); NEUTROPHILS % (AUTO) 52 % (42-75); PLATELET COUNT 227 10^3/uL (130-400); RED CELL DISTRIBUTION WIDTH 13.7 % (10.0-14.5); WHITE BLOOD COUNT 3.9 10^3/uL (4.3-11.0)
[2018-06-09 06:02] LABS: INR 2.8 (0.8-1.4); PROTHROMBIN TIME PATIENT 31.2 SEC (12.2-14.7)
[2018-06-09 06:11] LABS: ALBUMIN 3.3 GM/DL (3.2-4.5); BILIRUBIN,TOTAL 0.6 MG/DL (0.1-1.0); CALCIUM 8.5 MG/DL (8.5-10.1); CREATININE SERUM 0.92 MG/DL (0.60-1.30); POTASSIUM 4.1 MMOL/L (3.6-5.0); TOTAL PROTEIN 6.1 GM/DL (6.4-8.2)
--- NOTE | 2018-06-09 08:54 | PM&R Progress Note ---
Subjective HPI/CC On Admission Date Seen by Provider: Jun 09, 2018 Time Seen by Provider: 08:30 CC: Debility following fall with TBI with large frontal scalp hematoma left knee hematoma without fracture and left wrist nondisplaced radial styloid fx HPI: This is an 82-year-old white female who has been a patient in inpatient rehabilitation unit at [facility] 10 months ago who is a patient of Dr. Acharya 'bon who sustained a traumatic brain injury when she fell on her face after she missed a step heading into a local restaurant. She is maintained on Coumadin long-term due to hypercoagulable state with history of blood clots in the past. She was placed on the trauma service along with multiple consultants who placed her left wrist in a brace and monitor closely over the last 3 days with pain management and ambulation as much as possible with the use of incentive spirometer. Narcotic bowel is now resolved and she is currently eating lunch but has pain in her left ribs and has a history of for fractures in the past. She lives at home alone and will return to home to live independently after discharge from the rehabilitation facility. Subjective/Events-last exam Pt doing well INR 2.8 Coumadin at home was 5.5mg and I will decrease from 9mg to 8mg to prevent over shooting The rest of labs look good Will DC Thursday at 1:00 with her niece Had a little vaginal blood but that happens on occasion, no evidence of any bleeding otherwise Will monitor closely for Coumadin intoxicity Review of Systems General: Fatigue Objective Exam Vital Signs Vital Signs Date Time Temp Pulse Resp B/P (MAP) Pulse Ox O2 Delivery O2 Flow Rate FiO2 06/09/18 20:36 Room Air 06/09/18 17:26 98.0 62 18 139/65 (89) 96 Capillary Refill : Less Than 3 Seconds General Appearance: No Apparent Distress, WD/WN, Chronically ill, Obese, Other HEENT: PERRL/EOMI, Normal ENT Inspection, Pharynx Normal, Moist Mucous Membranes Neck: Full Range of Motion, Normal Inspection, Non Tender, Supple Respiratory: Chest Non Tender, Lungs Clear, Normal Breath Sounds, No Accessory Muscle Use, No Respiratory Distress, Other Cardiovascular: Regular Rate, Rhythm, No Edema, No Gallop, No JVD, No Murmur Gastrointestinal: Normal Bowel Sounds, No Organomegaly, No Pulsatile Mass, Non Tender, Soft Back: Normal Inspection, No CVA Tenderness, No Vertebral Tenderness Extremity: Normal Capillary Refill, Normal Inspection, Normal Range of Motion, Non Tender, No Calf Tenderness, No Pedal Edema Neurologic/Psychiatric: Alert, Oriented x3, No Motor/Sensory Deficits, Normal Mood/Affect Skin: Normal Color, Warm/Dry Lymphatic: No Adenopathy Results/Procedures Lab Laboratory Tests 06/09/18 05:25 Patient resulted labs reviewed. 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 Facial ecchymosis from fall Left radius fracture placed in brace Left knee hematoma Left rib fractures Overactive bladder Depression Status post constipation now resolved Plan: Home meds Coumadin decreased to 8mg daily to prevent overshoot Pain control with Lidocaine patch Incentive spirometer Intensive therapies Bowel regimen increased and will be maintained prn Will return to her home and live independently alone upon discharge (1) TBI (traumatic brain injury) (2) Rib fractures (3) Confusion (4) Debility (5) Radial styloid fracture (6) Anticoagulated (7) Open head injury (8) Nausea (9) Altered mental status Clinical Quality Measures DVT/VTE Risk/Contraindication: Risk Factor Score Per Nursin RFS Level Per Nursing on Admit: 4+=Very High JOSEY MEJIA DO Jun 09, 2018 08:53
[2018-06-09] MEDS: VITAMIN D3 1,000 UNITS (CHOLECALCIFEROL) TABLET PO SCH (09:02)
[2018-06-09] MEDS: LIDOCAINE 4% (SALONPAS) PATCH TOP SCH (09:02)
[2018-06-09] MEDS: OXYBUTYNIN (DITROPAN) 5 MG TAB PO SCH ×2 (09:02→20:05)
--- NOTE | 2018-06-09 09:39 | Occupational Ther Daily Note ---
OT Current Status-Daily Note Subjective Pt alert, sitting in recliner. Pt agrees to therapy. No c/o pain at this time. Mental Status/Objective Patient Orientation: Person, Place, Time, Situation Therapy Code Descriptions/Definitions Functional [place] Measure: 0=Not Assessed/NA 4=Minimal Assistance 1=Total Assistance 5=Supervision or Setup 2=Maximal Assistance 6=Modified [place] 3=Moderate Assistance 7=Complete [place] ADL-Treatment Therapy Code Descriptions/Definitions Functional [place] Measure: 0=Not Assessed/NA 4=Minimal Assistance 1=Total Assistance 5=Supervision or Setup 2=Maximal Assistance 6=Modified [place] 3=Moderate Assistance 7=Complete [place] Therapy Quality Codes: 6 Independent with activity with or without an assistive device 5 Patient requires set up or clean up by helper. Patient completes activity by themselves 4 Supervision or touching assist (CGA). [place] provide cues , steadying assist 3 The helper provides less than half the effort to complete the activity 2 The helper provides more than half the effort to complete the activity 1 Dependent. The helper does all the effort to complete an activity 7 Patient refused to complete or attempt activity 9 The patient did not perform the activity before the current illness or injury 88 Not attempted due to Medical conditions or safety concerns Grooming (FIM): 7 (Pt able to stand at sink and complete own grooming.) Oral Hygiene (QC): 6 Bathing (FIM): 4 (Using grabbars, hand held shower, long handle sponge and shower chair with cutouts. Pt able to bathe all areas sitting then assist to dry buttocks in standing.) Bathing Location: L Arm, R Arm, L Upper Leg, R Upper Leg, L Lower Leg ( including foot), R Lower Leg (including foot), Chest, Abdomen, Buttocks (in sitting), Perineal Area Shower/Bathe Self (QC): 3 Upper Body (FIM): 5 (Supervision to retrieve clothing with cane. Able to complete dressing by self.) Upper Body Dressing (QC): 4 Lower Body Dressing (FIM): 5 (Supervision with retrieving clothing with cane. Able to dress self.) Lower Body Dressing (QC): 4 On/Off Footwear (QC): 6 Toileting (FIM): 4 (Using grabbars and cane pt able to complete toileting. Inefficient with cleansing buttocks, assist only to check if clean. Close SBA when pt stands to cleanse buttocks.) Toileting Hygiene (QC): 4 Toilet/Commode Transfer (FIM): 6 (Using cane and grabbars, pt able to complete by self.) Toilet Transfer (QC): 6 Shower Transfer(FIM): 6 (Using grabbars, cane and shower chair (BSC) pt able to complete by self.) Other Treatment Pt ambulated to laundry with cane. Pt able to reach into washer and place in dryer with supervision. Then ambulated to therapy gym with cane. Arm bike completed 15 min at 20 hernández resistance to increase strength and activity tolerance for daily functional tasks. Pt then ambulated with cane back to room. After therapy, pt sitting in recliner with call light/phone in reach. All needs met in room. OT Short Term Goals Short Term Goals Time Frame: Jun 07, 2018 Upper Body Dressing(FIM): 5 Lower Body Dressing(FIM): 5 Toileting(FIM): 5 Toilet/Commode Transfer(FIM): 5 Additional Short Term Goals: 1-Demonstrate ADL Tasks, 2-Verbalize Understanding , 3-ImproveStrength/Cintia 1=Demonstrate adherence to instructed precautions during ADL tasks. 2=Patient will verbalize/demonstrate understanding of assistive devices/ modifications for ADL. 3=Patient will improve strength/tolerance for activity to enable patient to perform ADL's. OT Direct Mail Marketer Goals Direct Mail Marketer Goals Time Frame: Jun 21, 2018 Eating (FIM): 6 Eating (QC): 6 Groomin Oral Hygiene (QC): 6 Bathing(FIM): 6 Shower/Bathe Self (QC): 6 Upper Body Dressing(FIM): 6 Upper Body Dressing (QC): 6 Lower Body Dressing(FIM): 6 Lower Body Dressing (QC): 6 On/Off Footwear (QC): 6 Toileting(FIM): 6 Toileting Hygiene (QC): 6 Toilet/Commode Transfer(FIM): 6 Toilet/Commode Transfer (QC): 6 Shower Transfer(FIM): 6 Additional Goals: 1-Demonstrate ADL Tasks, 2-Verbalize Understanding, 3- ImproveStrength/Cintia 1=Demonstrate adherence to instructed precautions during ADL tasks. 2=Patient will verbalize/demonstrate understanding of assistive devices/ modifications for ADL. 3=Patient will improve strength/tolerance for activity to enable patient to perform ADL's. OT Education/Plan Problem List/Assessment Assessment: Impaired Self-Care Skills Discharge Recommendations Plan/Recommendations: Continue POC Treatment Plan/Plan of Care Patient would benefit from OT for education, treatment and training to promote independence in ADL's, mobility, safety and/or upper extremity function for ADL' s. Plan of Care: ADL Retraining, Functional Mobility, Group Exercise/Act as Ind, UE Funct Exercise/Act Treatment Duration: Jun 21, 2018 Frequency: At least 5 of 7 days/Wk (IRF) Estimated Hrs Per Day: 1.5 hours per day Agreement: Yes Rehab Potential: Good Time/GCodes Start Time: 08:05 Stop Time: 09:35 Total Time Billed (hr/min): 90 Billed Treatment Time 1 visit-ADL 4 (60 min) FA 1 (15 min) EX 1 (15 min) PAULINO MEJIA Jun 09, 2018 09:39
[2018-06-09] MEDS: ACETAMINOPHEN 500 MG TAB (TYLENOL) PO PRN (10:11)
--- NOTE | 2018-06-09 11:14 | Physical Therapy Daily Note ---
PT Daily Note-Current Subjective Pt sitting in recliner upon arrival. Pt agrees to PT. Pain Numeric Pain Scale: 3 Location: Anterior Location Body Site: Head Pain Description: Ache Mental Status Patient Orientation: Person, Place, Time, Situation Transfers Therapy Code Descriptions/Definitions Functional [place] Measure: 0=Not Assessed/NA 4=Minimal Assistance 1=Total Assistance 5=Supervision or Setup 2=Maximal Assistance 6=Modified [place] 3=Moderate Assistance 7=Complete [place] Therapy Quality Codes: 6 Independent with activity with or without an assistive device 5 Patient requires set up or clean up by helper. Patient completes activity by themselves 4 Supervision or touching assist (CGA). [place] provide cues , steadying assist 3 The helper provides less than half the effort to complete the activity 2 The helper provides more than half the effort to complete the activity 1 Dependent. The helper does all the effort to complete an activity 7 Patient refused to complete or attempt activity 9 The patient did not perform the activity before the current illness or injury 88 Not attempted due to Medical conditions or safety concerns Scootin Sit to/from Stand: 6 Sit to Stand (QC): 6 Weight Bearing Right Lower Extremity: Right Full Weight Bearing Left Lower Extremity: Left Full Weight Bearing NWB left UE Gait Training Does the Patient Walk?: Yes Distance (FIM): 3=150 ft Distance: 300' Walk 10 feet (QC): 6 Walk 50 ft with 2 Turns(QC): 6 Walk 150 ft (QC): 6 Gait Level of Assist: 6 Gait Persons Needed: 1 Gait Assistive Device: Cane Large Base Quad Wheelchair Training Does the Pt Use a Wheelchair?: No Treatments Pt transfers and ambulates in hallway using LBQC. Pt uses NuStep then takes short rest. Pt ambulates to Laundry Room to retrieve laundry. Pt is able to bend over, take laundry out & fold it. BODY BUMPER carries laundry for pt as pt ambulates back to room to rest. Pt uses restroom then rests in recliner at end of tx. Pt has all needs met. Assessment Current Status: Good Progress Pt is able to complete tasks given by BODY BUMPER well during tx. Pt is looking forward to DC. PT Short Term Goals Short Term Goals Time Frame: Jun 07, 2018 Gait (FIM): 2 Distance (FIM): 3=150 ft Gait Assistive Device: Cane Small Base Quad PT Deckhand Oyster Dredge Goals Deckhand [place] Dredge Goals PT Deckhand [place] Dredge Goals Time Frame: Jun 23, 2018 Transfers (B,C,W/C) (FIM): 6 Sit to Lying (QC): 6 Lying-Sitting on Side/Bed(QC): 6 Sit to Stand (QC): 6 Rollin Roll Left to Right (QC): 6 Chair/[id number]-Oztoo Xfer(QC): 6 Car Transfer (QC): 6 Does the Patient Walk: Yes Gait (FIM): 6 Gait distance (FIM): 3=150 ft Walk 10 feet (QC): 6 Walk 10ft-Uneven Surface(QC): 6 Walk 50ft with 2 Turns (QC): 6 Walk 150 ft (QC): 6 Gait Assistive Device: Cane Small Base Quad Does the Pt use WC or Scooter?: No Stairs (FIM): 5 # of Steps: 4 1 Step (curb) (QC): 6 4 Steps (QC): 6 12 Steps (QC): 88 Picking up an Object (QC): 88 PT Plan Problem List Problem List: Activity Tolerance Treatment/Plan Treatment Plan: Continue Plan of Care Treatment Plan: Bed Mobility, Education, Functional Activity Cintia, Functional Strength, Group Therapy, Gait, Safety, Therapeutic Exercise, Transfers Treatment Duration: Jun 23, 2018 Frequency: At least 5 of 7 days/Wk (IRF) Estimated Hrs Per Day: 1.5 hours per day Patient and/or Family Agrees t: Yes Safety Risks/Education Patient Education: Gait Training, Transfer Techniques, Correct Positioning, Safety Issues Teaching Recipient: Patient Teaching Methods: Discussion Response to Teaching: Verbalize Understanding Time/GCodes Time In: 1000 Time Out: 1100 Total Billed Treatment Time: 60 Total Billed Treatment 1, FA x2 (30m), GT (15m) & EX (15m) G Codes Necessary: JORDEN [place] BODY BUMPER Jun 09, 2018 11:14
--- NOTE | 2018-06-09 14:25 | Physical Therapy Daily Note ---
PT Daily Note-Current Subjective Pt sitting in recliner upon arrival. Pt agrees to earlier PT tx time. Pt reports needing to use restroom. Pain Numeric Pain Scale: 3 Location: Anterior Location Body Site: Head Pain Description: Ache Mental Status Patient Orientation: Person, Place, Time, Situation Transfers Therapy Code Descriptions/Definitions Functional [place] Measure: 0=Not Assessed/NA 4=Minimal Assistance 1=Total Assistance 5=Supervision or Setup 2=Maximal Assistance 6=Modified [place] 3=Moderate Assistance 7=Complete [place] Therapy Quality Codes: 6 Independent with activity with or without an assistive device 5 Patient requires set up or clean up by helper. Patient completes activity by themselves 4 Supervision or touching assist (CGA). [place] provide cues , steadying assist 3 The helper provides less than half the effort to complete the activity 2 The helper provides more than half the effort to complete the activity 1 Dependent. The helper does all the effort to complete an activity 7 Patient refused to complete or attempt activity 9 The patient did not perform the activity before the current illness or injury 88 Not attempted due to Medical conditions or safety concerns Scootin Sit to/from Stand: 6 Sit to Stand (QC): 6 Weight Bearing Right Lower Extremity: Right Full Weight Bearing Left Lower Extremity: Left Full Weight Bearing NWB left UE Gait Training Does the Patient Walk?: Yes Distance (FIM): 1=up to 49 ft Distance: 35' Walk 10 feet (QC): 6 Gait Level of Assist: 6 Gait Persons Needed: 1 Gait Assistive Device: Cane Large Base Quad Wheelchair Training Does the Pt Use a Wheelchair?: No Exercises Seated Therapy Exercises: Sit to stand Treatments Pt transfers from recliner to standing and ambulates to restroom. Pt is able to both doff & don brief & shorts Mod I. Pt discovers pink discharge from vaginal area after toileting. This is reported to Nurse. Pt returns to recliner to rest. Nurse discusses discharge with pt. Pt resting at end of tx with all needs met. Assessment Pt is more fatigued this afternoon. Pt is worried about discharge and PUMP ROOM OPERATOR encourages pt to continue to keep an eye on it, report any changes to Nurse. PT Short Term Goals Short Term Goals Time Frame: Jun 07, 2018 Gait (FIM): 2 Distance (FIM): 3=150 ft Gait Assistive Device: Cane Small Base Quad PT Senior Living Goals Senior Living Goals PT Show Dog Trainer Goals Time Frame: Jun 23, 2018 Transfers (B,C,W/C) (FIM): 6 Sit to Lying (QC): 6 Lying-Sitting on Side/Bed(QC): 6 Sit to Stand (QC): 6 Rollin Roll Left to Right (QC): 6 Chair/[id number]-Xzgxx Xfer(QC): 6 Car Transfer (QC): 6 Does the Patient Walk: Yes Gait (FIM): 6 Gait distance (FIM): 3=150 ft Walk 10 feet (QC): 6 Walk 10ft-Uneven Surface(QC): 6 Walk 50ft with 2 Turns (QC): 6 Walk 150 ft (QC): 6 Gait Assistive Device: Cane Small Base Quad Does the Pt use WC or Scooter?: No Stairs (FIM): 5 # of Steps: 4 1 Step (curb) (QC): 6 4 Steps (QC): 6 12 Steps (QC): 88 Picking up an Object (QC): 88 PT Plan Problem List Problem List: Activity Tolerance Treatment/Plan Treatment Plan: Continue Plan of Care Treatment Plan: Bed Mobility, Education, Functional Activity Cintia, Functional Strength, Group Therapy, Gait, Safety, Therapeutic Exercise, Transfers Treatment Duration: Jun 23, 2018 Frequency: At least 5 of 7 days/Wk (IRF) Estimated Hrs Per Day: 1.5 hours per day Patient and/or Family Agrees t: Yes Safety Risks/Education Patient Education: Correct Positioning, Safety Issues Teaching Recipient: Patient Teaching Methods: Discussion Response to Teaching: Verbalize Understanding Time/GCodes Time In: 1330 Time Out: 1400 Total Billed Treatment Time: 30 Total Billed Treatment 1, FA x2 (30m) G Codes Necessary: JORDEN [place] PTA Jun 09, 2018 14:25
[2018-06-09 17:26] VITALS: BP 139/65
[2018-06-09] MEDS ORDERED: warFARin 3 MG (COUMADIN) TAB PO SCH (18:00)
[2018-06-09] MEDS ORDERED: warFARin 5 MG (COUMADIN) TAB PO SCH (18:00)
--- NOTE | 2018-06-09 18:00 | NUR ---
SCREW EYE ASSEMBLER reported that pt had small amt of pinkish red vaginal spotting on toilet paper after wiping this afternoon. Pt stated that she has had this happen before a few times, & it went away. Dr. Miller was notified. No blood noted when pt went to the B/R a few hours later, & voided, pt looked on tissue, & no blood seen.
[2018-06-09] MEDS: PATCH REMOVAL TP SCH (20:05)
[2018-06-10 05:01] VITALS: BP 134/66
[2018-06-10 06:18] LABS: INR 3.2 (0.8-1.4); PROTHROMBIN TIME PATIENT 33.9 SEC (12.2-14.7)
--- NOTE | 2018-06-10 07:59 | Occupational Ther Daily Note ---
OT Current Status-Daily Note Subjective Pt alert, sitting in recliner. Pt agrees to therapy. No c/o pain at this time. Mental Status/Objective Patient Orientation: Person, Place, Time, Situation Therapy Code Descriptions/Definitions Functional [place] Measure: 0=Not Assessed/NA 4=Minimal Assistance 1=Total Assistance 5=Supervision or Setup 2=Maximal Assistance 6=Modified [place] 3=Moderate Assistance 7=Complete [place] ADL-Treatment Pt declines shower today. Pt able to complete own set up for eating and use regular utensils. Pt then ambulated to bathroom using cane. Completed sponge bath and toileting by self using cane and grabbars. Dressed self after set up. Pt ambulated to sink and completed own grooming. Pt then ambulated to recliner to don socks. Therapy Code Descriptions/Definitions Functional [place] Measure: 0=Not Assessed/NA 4=Minimal Assistance 1=Total Assistance 5=Supervision or Setup 2=Maximal Assistance 6=Modified [place] 3=Moderate Assistance 7=Complete [place] Therapy Quality Codes: 6 Independent with activity with or without an assistive device 5 Patient requires set up or clean up by helper. Patient completes activity by themselves 4 Supervision or touching assist (CGA). [place] provide cues , steadying assist 3 The helper provides less than half the effort to complete the activity 2 The helper provides more than half the effort to complete the activity 1 Dependent. The helper does all the effort to complete an activity 7 Patient refused to complete or attempt activity 9 The patient did not perform the activity before the current illness or injury 88 Not attempted due to Medical conditions or safety concerns Eating (FIM): 7 Eating (QC): 6 Grooming (FIM): 7 Oral Hygiene (QC): 6 Upper Body (FIM): 5 Upper Body Dressing (QC): 5 Lower Body Dressing (FIM): 5 Lower Body Dressing (QC): 5 On/Off Footwear (QC): 6 Toileting (FIM): 6 Toileting Hygiene (QC): 6 Toilet/Commode Transfer (FIM): 6 Toilet Transfer (QC): 6 Other Treatment Completed resistive pegs to increase strength of pinch and fiction and nonfiction writer prose for daily functional tasks. After therapy, pt sitting in recliner with call light/phone in reach. All needs met in room. OT Short Term Goals Short Term Goals Time Frame: Jun 07, 2018 Upper Body Dressing(FIM): 5 Lower Body Dressing(FIM): 5 Toileting(FIM): 5 Toilet/Commode Transfer(FIM): 5 Additional Short Term Goals: 1-Demonstrate ADL Tasks, 2-Verbalize Understanding , 3-ImproveStrength/Cintia 1=Demonstrate adherence to instructed precautions during ADL tasks. 2=Patient will verbalize/demonstrate understanding of assistive devices/ modifications for ADL. 3=Patient will improve strength/tolerance for activity to enable patient to perform ADL's. OT Clinical Project Manager Goals Clinical Project Manager Goals Time Frame: Jun 21, 2018 Eating (FIM): 6 Eating (QC): 6 Groomin Oral Hygiene (QC): 6 Bathing(FIM): 6 Shower/Bathe Self (QC): 6 Upper Body Dressing(FIM): 6 Upper Body Dressing (QC): 6 Lower Body Dressing(FIM): 6 Lower Body Dressing (QC): 6 On/Off Footwear (QC): 6 Toileting(FIM): 6 Toileting Hygiene (QC): 6 Toilet/Commode Transfer(FIM): 6 Toilet/Commode Transfer (QC): 6 Shower Transfer(FIM): 6 Additional Goals: 1-Demonstrate ADL Tasks, 2-Verbalize Understanding, 3- ImproveStrength/Cintia 1=Demonstrate adherence to instructed precautions during ADL tasks. 2=Patient will verbalize/demonstrate understanding of assistive devices/ modifications for ADL. 3=Patient will improve strength/tolerance for activity to enable patient to perform ADL's. OT Education/Plan Problem List/Assessment Assessment: Restricted Funct UE ROM Discharge Recommendations Plan/Recommendations: Continue POC Treatment Plan/Plan of Care Patient would benefit from OT for education, treatment and training to promote independence in ADL's, mobility, safety and/or upper extremity function for ADL' s. Plan of Care: ADL Retraining, Functional Mobility, Group Exercise/Act as Ind, UE Funct Exercise/Act Treatment Duration: Jun 21, 2018 Frequency: At least 5 of 7 days/Wk (IRF) Estimated Hrs Per Day: 1.5 hours per day Agreement: Yes Rehab Potential: Good Time/GCodes Start Time: 07:00 Stop Time: 08:00 Total Time Billed (hr/min): 60 Billed Treatment Time 1 visit-ADL 3 (50 min) EX 1 (10 min) PAULINO MEJIA Jun 10, 2018 07:59
[2018-06-10] MEDS: OXYBUTYNIN (DITROPAN) 5 MG TAB PO SCH ×2 (08:09→20:24)
[2018-06-10] MEDS: VITAMIN D3 1,000 UNITS (CHOLECALCIFEROL) TABLET PO SCH (08:09)
[2018-06-10] MEDS: LIDOCAINE 4% (SALONPAS) PATCH TOP SCH (08:09)
--- NOTE | 2018-06-10 08:36 | PM&R Progress Note ---
Subjective HPI/CC On Admission Date Seen by Provider: Jun 10, 2018 Time Seen by Provider: 08:45 CC: Debility following fall with TBI with large frontal scalp hematoma left knee hematoma without fracture and left wrist nondisplaced radial styloid fx HPI: This is an 82-year-old white female who has been a patient in inpatient rehabilitation unit at [facility] 10 months ago who is a patient of Dr. Acharya 'bon who sustained a traumatic brain injury when she fell on her face after she missed a step heading into a local restaurant. She is maintained on Coumadin long-term due to hypercoagulable state with history of blood clots in the past. She was placed on the trauma service along with multiple consultants who placed her left wrist in a brace and monitor closely over the last 3 days with pain management and ambulation as much as possible with the use of incentive spirometer. Narcotic bowel is now resolved and she is currently eating lunch but has pain in her left ribs and has a history of for fractures in the past. She lives at home alone and will return to home to live independently after discharge from the rehabilitation facility. Subjective/Events-last exam Pt doing well INR 3.1 so will decrease Coumadin to closer to home dose of 5.5mg Participating well Denies pain Feels confidence is increasing Review of Systems General: Fatigue Objective Exam Vital Signs Vital Signs Date Time Temp Pulse Resp B/P (MAP) Pulse Ox O2 Delivery O2 Flow Rate FiO2 06/10/18 09:00 Room Air 06/10/18 05:01 97.2 64 16 134/66 (88) 96 Capillary Refill : Less Than 3 Seconds General Appearance: No Apparent Distress, WD/WN, Chronically ill, Obese, Other HEENT: PERRL/EOMI, Normal ENT Inspection, Pharynx Normal, Moist Mucous Membranes Neck: Full Range of Motion, Normal Inspection, Non Tender, Supple Respiratory: Chest Non Tender, Lungs Clear, Normal Breath Sounds, No Accessory Muscle Use, No Respiratory Distress, Other Cardiovascular: Regular Rate, Rhythm, No Edema, No Gallop, No JVD, No Murmur Gastrointestinal: Normal Bowel Sounds, No Organomegaly, No Pulsatile Mass, Non Tender, Soft Back: Normal Inspection, No CVA Tenderness, No Vertebral Tenderness Extremity: Normal Capillary Refill, Normal Inspection, Normal Range of Motion, Non Tender, No Calf Tenderness, No Pedal Edema Neurologic/Psychiatric: Alert, Oriented x3, No Motor/Sensory Deficits, Normal Mood/Affect Skin: Normal Color, Warm/Dry Lymphatic: No Adenopathy Results/Procedures Lab Patient resulted labs reviewed. 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 Facial ecchymosis from fall Left radius fracture placed in brace Left knee hematoma Left rib fractures Overactive bladder Depression Status post constipation now resolved Vaginal bleeding scant amount of which she reports this happens periodically now resolved Plan: Home meds Coumadin decreased to 6mg daily to prevent overshoot since 3.1 today Pain control with Lidocaine patch Incentive spirometer Intensive therapies Bowel regimen increased and will be maintained prn Will return to her home and live independently alone upon discharge (1) TBI (traumatic brain injury) (2) Rib fractures (3) Confusion (4) Debility (5) Radial styloid fracture (6) Anticoagulated (7) Open head injury (8) Nausea (9) Altered mental status Clinical Quality Measures DVT/VTE Risk/Contraindication: Risk Factor Score Per Nursin RFS Level Per Nursing on Admit: 4+=Very High JOSEY MEJIA DO Jun 10, 2018 08:36
--- NOTE | 2018-06-10 10:11 | Physical Therapy Daily Note ---
PT Daily Note-Current Subjective Agrees to Rx. Pain Location: No Pain Reported Mental Status Patient Orientation: Normal For Age Attachments: Other-See Comments (left wridt cast) Transfers Therapy Code Descriptions/Definitions Functional [place] Measure: 0=Not Assessed/NA 4=Minimal Assistance 1=Total Assistance 5=Supervision or Setup 2=Maximal Assistance 6=Modified [place] 3=Moderate Assistance 7=Complete [place] Therapy Quality Codes: 6 Independent with activity with or without an assistive device 5 Patient requires set up or clean up by helper. Patient completes activity by themselves 4 Supervision or touching assist (CGA). [place] provide cues , steadying assist 3 The helper provides less than half the effort to complete the activity 2 The helper provides more than half the effort to complete the activity 1 Dependent. The helper does all the effort to complete an activity 7 Patient refused to complete or attempt activity 9 The patient did not perform the activity before the current illness or injury 88 Not attempted due to Medical conditions or safety concerns Transfers (B, C, W/C) (FIM): 6 Scootin Rollin Supine to/from Sit: 6 Sit to/from Stand: 6 Bed to/from Chair: 6 Car Transfer (QC): 6 Weight Bearing Right Lower Extremity: Right Full Weight Bearing Left Lower Extremity: Left Full Weight Bearing NWB left UE Gait Training Does the Patient Walk?: Yes Gait (FIM): 5 Distance (FIM): 3=150 ft (150x2, 200, 75x3) Gait Level of Assist: 5 Gait Persons Needed: 1 Gait Assistive Device: Cane Large Base Quad Stair Training Stair Training: Handrails/: 1 handrail Stairs (FIM): 2 #of Steps: 4 Stairs: Pattern: Step to Level of Assist: 4 pink step inside parallel bars, CGA Exercises Supine Ex: Bridging, Ankle pumps, Quad Set, Rolling, Glut sets, Heel Slides, Short Arc Quads, Scooting, Straight leg raise, Hip abd/add Supine Reps: 20 Seated Therapy Exercises: Ankle pumps, Sit to stand, Long arc quads, Hip flexion, Hip abd/add Seated Reps: 20 Standing: Hip Abduction, Hamstring curls, Heel/toe raises, Marching, Mini squats, Sit to Stand Standing Reps: 20 NuStep Minutes: 13 NuStep Workload: 3 Treatments toileted x 3 indep managing clothing and clean up indep Assessment Current Status: Good Progress PT Short Term Goals Short Term Goals Time Frame: Jun 07, 2018 Gait (FIM): 2 Distance (FIM): 3=150 ft Gait Assistive Device: Cane Small Base Quad PT Senior Net Engineer Goals [facility] Goals PT [facility] Goals Time Frame: Jun 23, 2018 Transfers (B,C,W/C) (FIM): 6 Sit to Lying (QC): 6 Lying-Sitting on Side/Bed(QC): 6 Sit to Stand (QC): 6 Rollin Roll Left to Right (QC): 6 Chair/Eph-ij-Ecylq Xfer(QC): 6 Car Transfer (QC): 6 Does the Patient Walk: Yes Gait (FIM): 6 Gait distance (FIM): 3=150 ft Walk 10 feet (QC): 6 Walk 10ft-Uneven Surface(QC): 6 Walk 50ft with 2 Turns (QC): 6 Walk 150 ft (QC): 6 Gait Assistive Device: Cane Small Base Quad Does the Pt use WC or Scooter?: No Stairs (FIM): 5 # of Steps: 4 1 Step (curb) (QC): 6 4 Steps (QC): 6 12 Steps (QC): 88 Picking up an Object (QC): 88 PT Plan Treatment/Plan Treatment Plan: Continue Plan of Care Treatment Plan: Bed Mobility, Education, Functional Activity Cintia, Functional Strength, Group Therapy, Gait, Safety, Therapeutic Exercise, Transfers Treatment Duration: Jun 23, 2018 Frequency: At least 5 of 7 days/Wk (IRF) Estimated Hrs Per Day: 1.5 hours per day Patient and/or Family Agrees t: Yes Safety Risks/Education Patient Education: Gait Training, Transfer Techniques, Steps, Correct Positioning, Disease Process, Safety Issues Teaching Recipient: Patient Teaching Methods: Demonstration, Discussion Response to Teaching: Verbalize Understanding, Return Demonstration, Reinforcement Needed Time/GCodes Time In: 830 Time Out: 1000 Total Billed Treatment Time: 90 Total Billed Treatment 1,EX30m,GT25m,FA35m G Codes Necessary: ZION Tomlinson ROVER TENDER Jun 10, 2018 10:11
--- NOTE | 2018-06-10 12:45 | Occupational Ther Daily Note ---
OT Current Status-Daily Note Subjective Pt alert, sitting in recliner. Pt agrees to therapy. No c/o pain at this time. Mental Status/Objective Patient Orientation: Person, Place, Time, Situation Therapy Code Descriptions/Definitions Functional [place] Measure: 0=Not Assessed/NA 4=Minimal Assistance 1=Total Assistance 5=Supervision or Setup 2=Maximal Assistance 6=Modified [place] 3=Moderate Assistance 7=Complete [place] ADL-Treatment Therapy Code Descriptions/Definitions Functional [place] Measure: 0=Not Assessed/NA 4=Minimal Assistance 1=Total Assistance 5=Supervision or Setup 2=Maximal Assistance 6=Modified [place] 3=Moderate Assistance 7=Complete [place] Therapy Quality Codes: 6 Independent with activity with or without an assistive device 5 Patient requires set up or clean up by helper. Patient completes activity by themselves 4 Supervision or touching assist (CGA). [place] provide cues , steadying assist 3 The helper provides less than half the effort to complete the activity 2 The helper provides more than half the effort to complete the activity 1 Dependent. The helper does all the effort to complete an activity 7 Patient refused to complete or attempt activity 9 The patient did not perform the activity before the current illness or injury 88 Not attempted due to Medical conditions or safety concerns Toileting (FIM): 6 (Using grabbar and cane, pt able to complete by self.) Toileting Hygiene (QC): 6 Toilet/Commode Transfer (FIM): 6 (Using grabbar and cane, pt able to complete by self.) Toilet Transfer (QC): 6 Other Treatment Pt ambulates with cane to therapy gym. Arm bike completed 15 min with no resistance while using B UE's then 20 hernández resistance using R UE only to increase strength and activity tolerance for daily functional tasks. Pt ambulated back to room. After therapy, pt sitting in recliner with call light/ phone in reach. All needs met in room. OT Short Term Goals Short Term Goals Time Frame: Jun 07, 2018 Upper Body Dressing(FIM): 5 Lower Body Dressing(FIM): 5 Toileting(FIM): 5 Toilet/Commode Transfer(FIM): 5 Additional Short Term Goals: 1-Demonstrate ADL Tasks, 2-Verbalize Understanding , 3-ImproveStrength/Cintia 1=Demonstrate adherence to instructed precautions during ADL tasks. 2=Patient will verbalize/demonstrate understanding of assistive devices/ modifications for ADL. 3=Patient will improve strength/tolerance for activity to enable patient to perform ADL's. OT Senior Data Architect Goals [facility] Goals Time Frame: Jun 21, 2018 Eating (FIM): 6 Eating (QC): 6 Groomin Oral Hygiene (QC): 6 Bathing(FIM): 6 Shower/Bathe Self (QC): 6 Upper Body Dressing(FIM): 6 Upper Body Dressing (QC): 6 Lower Body Dressing(FIM): 6 Lower Body Dressing (QC): 6 On/Off Footwear (QC): 6 Toileting(FIM): 6 Toileting Hygiene (QC): 6 Toilet/Commode Transfer(FIM): 6 Toilet/Commode Transfer (QC): 6 Shower Transfer(FIM): 6 Additional Goals: 1-Demonstrate ADL Tasks, 2-Verbalize Understanding, 3- ImproveStrength/Cintia 1=Demonstrate adherence to instructed precautions during ADL tasks. 2=Patient will verbalize/demonstrate understanding of assistive devices/ modifications for ADL. 3=Patient will improve strength/tolerance for activity to enable patient to perform ADL's. OT Education/Plan Discharge Recommendations Plan/Recommendations: Continue POC Treatment Plan/Plan of Care Patient would benefit from OT for education, treatment and training to promote independence in ADL's, mobility, safety and/or upper extremity function for ADL' s. Plan of Care: ADL Retraining, Functional Mobility, Group Exercise/Act as Ind, UE Funct Exercise/Act Treatment Duration: Jun 21, 2018 Frequency: At least 5 of 7 days/Wk (IRF) Estimated Hrs Per Day: 1.5 hours per day Agreement: Yes Rehab Potential: Good Time/GCodes Start Time: 11:30 Stop Time: 12:00 Total Time Billed (hr/min): 30 Billed Treatment Time 1 visit-ADL 1 (15 min) EX 1 (15 min) PAULINO MEJIA Jun 10, 2018 12:44
--- NOTE | 2018-06-10 14:49 | NUR ---
BASEBALL PLAYER met with patient to review team conference summary. As patient is progressing well and is performing all therapy activities with supervision to modified independence, team has recommended discharge on Thursday, 06/14. Patient has all necessary equipment at home other than toilet tongs; however, patient is reluctant to use these at home. Patient will benefit from home health services for RN, PT and OT services and wishes to utilize [facility] health. BASEBALL PLAYER will send referral to anticipate Thursday's discharge. BASEBALL PLAYER will follow up with patient prior to discharge to ensure no concerns.
[2018-06-10] MEDS: warFARin 3 MG (COUMADIN) TAB PO SCH (17:16)
[2018-06-10 18:00] VITALS: BP 115/64
[2018-06-10] MEDS ORDERED: warFARin 1 MG (COUMADIN) TAB PO SCH (18:00)
[2018-06-10] MEDS: PATCH REMOVAL TP SCH (20:29)
[2018-06-11 05:10] VITALS: BP 133/63
--- NOTE | 2018-06-11 07:58 | Occupational Ther Daily Note ---
OT Current Status-Daily Note Subjective Pt alert, sitting in recliner. Pt agrees to therapy. No c/o pain. Mental Status/Objective Patient Orientation: Person, Place, Time, Situation Therapy Code Descriptions/Definitions Functional [place] Measure: 0=Not Assessed/NA 4=Minimal Assistance 1=Total Assistance 5=Supervision or Setup 2=Maximal Assistance 6=Modified [place] 3=Moderate Assistance 7=Complete [place] ADL-Treatment Pt agrees to shower. Pt ambulated to bathroom. Transferred using cane and grabbars to toilet and completed toileting by self. Pt then transferred to shower using grabbar, shower seat with cutout and cane by self. Completed bathing using shower seat with cutout, hand held shower, long handle sponge and grabbars by self, supervision in standing to dry buttocks. Pt able to don/doff clothing by self. Pt ambulates to sink and completes own grooming. After therapy, pt sitting in recliner with call light/phone in phone. Therapy Code Descriptions/Definitions Functional [place] Measure: 0=Not Assessed/NA 4=Minimal Assistance 1=Total Assistance 5=Supervision or Setup 2=Maximal Assistance 6=Modified [place] 3=Moderate Assistance 7=Complete [place] Therapy Quality Codes: 6 Independent with activity with or without an assistive device 5 Patient requires set up or clean up by helper. Patient completes activity by themselves 4 Supervision or touching assist (CGA). [place] provide cues , steadying assist 3 The helper provides less than half the effort to complete the activity 2 The helper provides more than half the effort to complete the activity 1 Dependent. The helper does all the effort to complete an activity 7 Patient refused to complete or attempt activity 9 The patient did not perform the activity before the current illness or injury 88 Not attempted due to Medical conditions or safety concerns Grooming (FIM): 6 Oral Hygiene (QC): 6 Bathing (FIM): 5 Bathing Location: L Arm, R Arm, L Upper Leg, R Upper Leg, L Lower Leg ( including foot), R Lower Leg (including foot), Chest, Abdomen, Buttocks, Perineal Area Shower/Bathe Self (QC): 4 Upper Body (FIM): 6 Upper Body Dressing (QC): 6 Lower Body Dressing (FIM): 6 Lower Body Dressing (QC): 6 On/Off Footwear (QC): 6 Toileting (FIM): 6 Toileting Hygiene (QC): 6 Transfers (B, C, W/C) (FIM): 6 Toilet/Commode Transfer (FIM): 6 Toilet Transfer (QC): 6 Shower Transfer(FIM): 6 OT Short Term Goals Short Term Goals Time Frame: Jun 07, 2018 Upper Body Dressing(FIM): 5 Lower Body Dressing(FIM): 5 Toileting(FIM): 5 Toilet/Commode Transfer(FIM): 5 Additional Short Term Goals: 1-Demonstrate ADL Tasks, 2-Verbalize Understanding , 3-ImproveStrength/Cintia 1=Demonstrate adherence to instructed precautions during ADL tasks. 2=Patient will verbalize/demonstrate understanding of assistive devices/ modifications for ADL. 3=Patient will improve strength/tolerance for activity to enable patient to perform ADL's. OT Chcf Goals Sculpture Instructor Goals Time Frame: Jun 21, 2018 Eating (FIM): 6 Eating (QC): 6 Groomin Oral Hygiene (QC): 6 Bathing(FIM): 6 Shower/Bathe Self (QC): 6 Upper Body Dressing(FIM): 6 Upper Body Dressing (QC): 6 Lower Body Dressing(FIM): 6 Lower Body Dressing (QC): 6 On/Off Footwear (QC): 6 Toileting(FIM): 6 Toileting Hygiene (QC): 6 Toilet/Commode Transfer(FIM): 6 Toilet/Commode Transfer (QC): 6 Shower Transfer(FIM): 6 Additional Goals: 1-Demonstrate ADL Tasks, 2-Verbalize Understanding, 3- ImproveStrength/Cintia 1=Demonstrate adherence to instructed precautions during ADL tasks. 2=Patient will verbalize/demonstrate understanding of assistive devices/ modifications for ADL. 3=Patient will improve strength/tolerance for activity to enable patient to perform ADL's. OT Education/Plan Problem List/Assessment Assessment: Restricted Funct UE ROM Discharge Recommendations Plan/Recommendations: Continue POC Treatment Plan/Plan of Care Patient would benefit from OT for education, treatment and training to promote independence in ADL's, mobility, safety and/or upper extremity function for ADL' s. Plan of Care: ADL Retraining, Functional Mobility, Group Exercise/Act as Ind, UE Funct Exercise/Act Treatment Duration: Jun 21, 2018 Frequency: At least 5 of 7 days/Wk (IRF) Estimated Hrs Per Day: 1.5 hours per day Agreement: Yes Rehab Potential: Good Time/GCodes Start Time: 07:00 Stop Time: 08:00 Total Time Billed (hr/min): 60 Billed Treatment Time 1 visit-ADL 4 (60 min) PAULINO MEJIA Jun 11, 2018 07:58
--- NOTE | 2018-06-11 08:39 | PM&R Progress Note ---
Subjective HPI/CC On Admission Date Seen by Provider: Jun 11, 2018 Time Seen by Provider: 08:45 CC: Debility following fall with TBI with large frontal scalp hematoma left knee hematoma without fracture and left wrist nondisplaced radial styloid fx HPI: This is an 82-year-old white female who has been a patient in inpatient rehabilitation unit at [facility] 10 months ago who is a patient of Dr. Acharya 'bon who sustained a traumatic brain injury when she fell on her face after she missed a step heading into a local restaurant. She is maintained on Coumadin long-term due to hypercoagulable state with history of blood clots in the past. She was placed on the trauma service along with multiple consultants who placed her left wrist in a brace and monitor closely over the last 3 days with pain management and ambulation as much as possible with the use of incentive spirometer. Narcotic bowel is now resolved and she is currently eating lunch but has pain in her left ribs and has a history of for fractures in the past. She lives at home alone and will return to home to live independently after discharge from the rehabilitation facility. Subjective/Events-last exam Pt doing well Coumadin dose 6 MG daily and will recheck INR tomorrow Denies any pain Participating in all therapies Confidence is increasing Review of Systems General: Fatigue Objective Exam Vital Signs Vital Signs Date Time Temp Pulse Resp B/P (MAP) Pulse Ox O2 Delivery O2 Flow Rate FiO2 06/11/18 09:00 Room Air 06/11/18 05:10 97.6 74 18 133/63 (86) 96 Capillary Refill : Less Than 3 Seconds General Appearance: No Apparent Distress, WD/WN, Chronically ill, Obese, Other (Improved ecchymosis) HEENT: PERRL/EOMI, Normal ENT Inspection, Pharynx Normal, Moist Mucous Membranes Neck: Full Range of Motion, Normal Inspection, Non Tender, Supple Respiratory: Chest Non Tender, Lungs Clear, Normal Breath Sounds, No Accessory Muscle Use, No Respiratory Distress, Other Cardiovascular: Regular Rate, Rhythm, No Edema, No Gallop, No JVD, No Murmur Gastrointestinal: Normal Bowel Sounds, No Organomegaly, No Pulsatile Mass, Non Tender, Soft Back: Normal Inspection, No CVA Tenderness, No Vertebral Tenderness Extremity: Normal Capillary Refill, Normal Inspection, Normal Range of Motion, Non Tender, No Calf Tenderness, No Pedal Edema Neurologic/Psychiatric: Alert, Oriented x3, No Motor/Sensory Deficits, Normal Mood/Affect Skin: Normal Color, Warm/Dry Lymphatic: No Adenopathy Results/Procedures Lab Patient resulted labs reviewed. 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 Facial ecchymosis from fall Left radius fracture placed in brace Left knee hematoma Left rib fractures Overactive bladder Depression Status post constipation now resolved Vaginal bleeding scant amount of which she reports this happens periodically now resolved Plan: Home meds Coumadin decreased to 6mg daily to prevent overshoot checking INR tomorrow Pain control with Lidocaine patch Incentive spirometer Intensive therapies Bowel regimen increased and will be maintained prn Will return to her home and live independently alone upon discharge (1) TBI (traumatic brain injury) (2) Rib fractures (3) Confusion (4) Debility (5) Radial styloid fracture (6) Anticoagulated (7) Open head injury (8) Nausea (9) Altered mental status Clinical Quality Measures DVT/VTE Risk/Contraindication: Risk Factor Score Per Nursin RFS Level Per Nursing on Admit: 4+=Very High JOSEY MEJIA DO Jun 11, 2018 08:38
[2018-06-11] MEDS: VITAMIN D3 1,000 UNITS (CHOLECALCIFEROL) TABLET PO SCH (09:09)
[2018-06-11] MEDS: OXYBUTYNIN (DITROPAN) 5 MG TAB PO SCH ×2 (09:09→20:45)
[2018-06-11] MEDS: LIDOCAINE 4% (SALONPAS) PATCH TOP SCH (09:09)
--- NOTE | 2018-06-11 09:19 | Physical Therapy Daily Note ---
PT Daily Note-Current Subjective Pt sitting in recliner upon arrival. Pt agrees to PT. Pt reports feeling good and ready to DC Thursday (06/14). Pain Location: No Pain Reported Mental Status Patient Orientation: Person, Place, Time, Situation Transfers Therapy Code Descriptions/Definitions Functional [place] Measure: 0=Not Assessed/NA 4=Minimal Assistance 1=Total Assistance 5=Supervision or Setup 2=Maximal Assistance 6=Modified [place] 3=Moderate Assistance 7=Complete [place] Therapy Quality Codes: 6 Independent with activity with or without an assistive device 5 Patient requires set up or clean up by helper. Patient completes activity by themselves 4 Supervision or touching assist (CGA). [place] provide cues , steadying assist 3 The helper provides less than half the effort to complete the activity 2 The helper provides more than half the effort to complete the activity 1 Dependent. The helper does all the effort to complete an activity 7 Patient refused to complete or attempt activity 9 The patient did not perform the activity before the current illness or injury 88 Not attempted due to Medical conditions or safety concerns Scootin Sit to/from Stand: 6 Sit to Stand (QC): 6 Weight Bearing Right Lower Extremity: Right Full Weight Bearing Left Lower Extremity: Left Full Weight Bearing NWB left UE Gait Training Does the Patient Walk?: Yes Distance (FIM): 3=150 ft Distance: 300' Walk 10 feet (QC): 6 Walk 50 ft with 2 Turns(QC): 6 Walk 150 ft (QC): 6 Gait Level of Assist: 6 Gait Persons Needed: 1 Gait Assistive Device: Cane Large Base Quad Wheelchair Training Does the Pt Use a Wheelchair?: No Exercises Supine Ex: Ankle pumps, Quad Set, Heel Slides, Straight leg raise, Hip abd/add Supine Reps: 20 NuStep Minutes: 15 NuStep Workload: 6 Treatments Pt transfers from recliner and ambulates to restroom. After using restroom, pt ambulates in hallway. Pt uses NuStep for 15m at WL 6 followed by Supine Ex at Therapy Mat. Pt ambulates in hallway before returning to room. Pt resting in recliner with all needs met. Nurse present. Assessment Current Status: Excellent Progress Pt has improved with strength, transfers & mobility. Pt is made Ad xi in room , Nurse is advised. PT Short Term Goals Short Term Goals Time Frame: Jun 07, 2018 Gait (FIM): 2 Distance (FIM): 3=150 ft Gait Assistive Device: Cane Small Base Quad PT Bilingual Patient Support Caseworker Goals Bilingual Patient Support Caseworker Goals PT Jail Goals Time Frame: Jun 23, 2018 Transfers (B,C,W/C) (FIM): 6 Sit to Lying (QC): 6 Lying-Sitting on Side/Bed(QC): 6 Sit to Stand (QC): 6 Rollin Roll Left to Right (QC): 6 Chair/Frj-ll-Wgvyu Xfer(QC): 6 Car Transfer (QC): 6 Does the Patient Walk: Yes Gait (FIM): 6 Gait distance (FIM): 3=150 ft Walk 10 feet (QC): 6 Walk 10ft-Uneven Surface(QC): 6 Walk 50ft with 2 Turns (QC): 6 Walk 150 ft (QC): 6 Gait Assistive Device: Cane Small Base Quad Does the Pt use WC or Scooter?: No Stairs (FIM): 5 # of Steps: 4 1 Step (curb) (QC): 6 4 Steps (QC): 6 12 Steps (QC): 88 Picking up an Object (QC): 88 PT Plan Problem List Problem List: Activity Tolerance Treatment/Plan Treatment Plan: Continue Plan of Care Treatment Plan: Bed Mobility, Education, Functional Activity Cintia, Functional Strength, Group Therapy, Gait, Safety, Therapeutic Exercise, Transfers Treatment Duration: Jun 23, 2018 Frequency: At least 5 of 7 days/Wk (IRF) Estimated Hrs Per Day: 1.5 hours per day Patient and/or Family Agrees t: Yes Safety Risks/Education Patient Education: Correct Positioning, Safety Issues Teaching Recipient: Patient Teaching Methods: Discussion Response to Teaching: Verbalize Understanding Time/GCodes Time In: 815 Time Out: 915 Total Billed Treatment Time: 60 Total Billed Treatment 1, GT (15m), EX x2 (30m) & FA (15m) G Codes Necessary: JORDEN Vail PTA Jun 11, 2018 09:19
--- NOTE | 2018-06-11 15:17 | Therapy Group Daily Note ---
Therapy Daily Group Note Patient Education Topic Other List Below (memory, ARU description) Exercises LE Seated Exercise, UE Exercise Session Ratio (pt:therapist): 4:1 Goal of Session: Education on ARU Expectations, Memory Strategies, UE/LE Strengthing Goal Met for this Session: Yes Pt Benefit of Group: Contributions to Others, F/U Use of Strategies @Home, Increased Functional Strength, Improved Cognition, Recognition of Peers, Socialization Other/Notes Pt ambulated to OT/PT group in [facility] area. Group consisted of introductions (name, place, best restaurant), socialization, UE/LE seated exercises and educational topics (memory strategies/ARU description). Pt introduced self appropriately and actively listened to peers. Pt able to complete UE with R UE, L UE unable due to medical diagnosis. Completes LE exercises correctly. Pt was able to verbalize memory strategies and acknowledge understanding of educational topics. After therapy, pt sitting in recliner with call light/phone in reach. All needs met in room. Start Time: 13:00 Stop Time: 14:30 Total Billed Treatment Time: 90 Total Billed Treatment 1-GRP PAULINO MEJIA Jun 11, 2018 15:17
[2018-06-11 17:48] VITALS: BP 146/73
[2018-06-11] MEDS: warFARin 3 MG (COUMADIN) TAB PO SCH (18:40)
[2018-06-11] MEDS: PATCH REMOVAL TP SCH (20:44)
[2018-06-12 05:43] VITALS: BP 150/78
[2018-06-12] MEDS: OXYBUTYNIN (DITROPAN) 5 MG TAB PO SCH ×2 (08:00→21:00)
[2018-06-12] MEDS: LIDOCAINE 4% (SALONPAS) PATCH TOP SCH (08:00)
[2018-06-12] MEDS: VITAMIN D3 1,000 UNITS (CHOLECALCIFEROL) TABLET PO SCH (08:00)
[2018-06-12 08:24] LABS: INR 2.9 (0.8-1.4); PROTHROMBIN TIME PATIENT 31.5 SEC (12.2-14.7)
--- NOTE | 2018-06-12 09:30 | Physical Therapy Daily Note ---
PT Daily Note-Current Subjective Patient is up ad xi in room and agrees to PT. Mental Status Patient Orientation: Normal For Age Transfers Therapy Code Descriptions/Definitions Functional [place] Measure: 0=Not Assessed/NA 4=Minimal Assistance 1=Total Assistance 5=Supervision or Setup 2=Maximal Assistance 6=Modified [place] 3=Moderate Assistance 7=Complete [place] Therapy Quality Codes: 6 Independent with activity with or without an assistive device 5 Patient requires set up or clean up by helper. Patient completes activity by themselves 4 Supervision or touching assist (CGA). [place] provide cues , steadying assist 3 The helper provides less than half the effort to complete the activity 2 The helper provides more than half the effort to complete the activity 1 Dependent. The helper does all the effort to complete an activity 7 Patient refused to complete or attempt activity 9 The patient did not perform the activity before the current illness or injury 88 Not attempted due to Medical conditions or safety concerns Transfers (B, C, W/C) (FIM): 6 Scootin Sit to/from Stand: 6 Sit to Stand (QC): 6 Weight Bearing Right Lower Extremity: Right Full Weight Bearing Left Lower Extremity: Left Full Weight Bearing NWB left UE Gait Training Does the Patient Walk?: Yes Gait (FIM): 6 Distance (FIM): 3=150 ft Distance: >500' Walk 10 feet (QC): 6 Walk 50 ft with 2 Turns(QC): 6 Walk 150 ft (QC): 6 Gait Level of Assist: 6 Gait Assistive Device: Cane Small Base Quad WBOS with gait sequence/safe and functional Assessment Patient instructed to ambulate PRN in hallway. Patient to dismiss to home on Thursday. PT Short Term Goals Short Term Goals Time Frame: Jun 07, 2018 Gait (FIM): 2 Distance (FIM): 3=150 ft Gait Assistive Device: Cane Small Base Quad PT Education Professional Goals Chcf Goals PT Education Professional Goals Time Frame: Jun 23, 2018 Transfers (B,C,W/C) (FIM): 6 Sit to Lying (QC): 6 Lying-Sitting on Side/Bed(QC): 6 Sit to Stand (QC): 6 Rollin Roll Left to Right (QC): 6 Chair/[id number] Xfer(QC): 6 Car Transfer (QC): 6 Does the Patient Walk: Yes Gait (FIM): 6 Gait distance (FIM): 3=150 ft Walk 10 feet (QC): 6 Walk 10ft-Uneven Surface(QC): 6 Walk 50ft with 2 Turns (QC): 6 Walk 150 ft (QC): 6 Gait Assistive Device: Cane Small Base Quad Does the Pt use WC or Scooter?: No Stairs (FIM): 5 # of Steps: 4 1 Step (curb) (QC): 6 4 Steps (QC): 6 12 Steps (QC): 88 Picking up an Object (QC): 88 PT Plan Treatment/Plan Treatment Plan: Continue Plan of Care Treatment Plan: Bed Mobility, Education, Functional Activity Cintia, Functional Strength, Group Therapy, Gait, Safety, Therapeutic Exercise, Transfers Treatment Duration: Jun 23, 2018 Frequency: At least 5 of 7 days/Wk (IRF) Estimated Hrs Per Day: 1.5 hours per day Patient and/or Family Agrees t: Yes Time/GCodes Time In: 911 Time Out: 922 Total Billed Treatment Time: 11 Total Billed Treatment 1 visit FA 11 min SALOME TERAN PT Jun 12, 2018 09:30
--- NOTE | 2018-06-12 12:43 | PM&R Progress Note ---
Subjective HPI/CC On Admission Date Seen by Provider: Jun 12, 2018 Time Seen by Provider: 11:15 CC: Debility following fall with TBI with large frontal scalp hematoma left knee hematoma without fracture and left wrist nondisplaced radial styloid fx HPI: This is an 82-year-old white female who has been a patient in inpatient rehabilitation unit at [facility] 10 months ago who is a patient of Dr. Acharya 'bon who sustained a traumatic brain injury when she fell on her face after she missed a step heading into a local restaurant. She is maintained on Coumadin long-term due to hypercoagulable state with history of blood clots in the past. She was placed on the trauma service along with multiple consultants who placed her left wrist in a brace and monitor closely over the last 3 days with pain management and ambulation as much as possible with the use of incentive spirometer. Narcotic bowel is now resolved and she is currently eating lunch but has pain in her left ribs and has a history of for fractures in the past. She lives at home alone and will return to home to live independently after discharge from the rehabilitation facility. Subjective/Events-last exam Pt doing well and independently moving around and performing her own ADL's Coumadin dose 6 MG daily and INR 2.9 right on target Denies any pain Participating in all therapies Confidence is increasing DC Thursday at 1300 Objective Exam Vital Signs Vital Signs Date Time Temp Pulse Resp B/P (MAP) Pulse Ox O2 Delivery O2 Flow Rate FiO2 06/12/18 09:00 Room Air 06/12/18 05:43 98.2 60 18 150/78 (102) 96 Capillary Refill : Less Than 3 Seconds General Appearance: No Apparent Distress, WD/WN, Chronically ill, Obese, Other (Improved ecchymosis) HEENT: PERRL/EOMI, Normal ENT Inspection, Pharynx Normal, Moist Mucous Membranes Neck: Full Range of Motion, Normal Inspection, Non Tender, Supple Respiratory: Chest Non Tender, Lungs Clear, Normal Breath Sounds, No Accessory Muscle Use, No Respiratory Distress, Other Cardiovascular: Regular Rate, Rhythm, No Edema, No Gallop, No JVD, No Murmur Gastrointestinal: Normal Bowel Sounds, No Organomegaly, No Pulsatile Mass, Non Tender, Soft Back: Normal Inspection, No CVA Tenderness, No Vertebral Tenderness Extremity: Normal Capillary Refill, Normal Inspection, Normal Range of Motion, Non Tender, No Calf Tenderness, No Pedal Edema Neurologic/Psychiatric: Alert, Oriented x3, No Motor/Sensory Deficits, Normal Mood/Affect Skin: Normal Color, Warm/Dry Lymphatic: No Adenopathy Results/Procedures Lab Patient resulted labs reviewed. 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 Facial ecchymosis from fall Left radius fracture placed in brace Left knee hematoma Left rib fractures Overactive bladder Depression Status post constipation now resolved Vaginal bleeding scant amount of which she reports this happens periodically now resolved Plan: Home meds Coumadin decreased to 6mg daily to prevent overshoot and good INR today Pain control with Lidocaine patch Incentive spirometer Intensive therapies Bowel regimen increased and will be maintained prn Will return to her home and live independently alone upon discharge (1) TBI (traumatic brain injury) (2) Rib fractures (3) Confusion (4) Debility (5) Radial styloid fracture (6) Anticoagulated (7) Open head injury (8) Nausea (9) Altered mental status Clinical Quality Measures DVT/VTE Risk/Contraindication: Risk Factor Score Per Nursin RFS Level Per Nursing on Admit: 4+=Very High JOSEY MEJIA DO Jun 12, 2018 12:43
[2018-06-12 15:41] VITALS: BP 135/64
[2018-06-12] MEDS: warFARin 3 MG (COUMADIN) TAB PO SCH (18:26)
[2018-06-12] MEDS: PATCH REMOVAL TP SCH (21:00)
[2018-06-13 05:05] VITALS: BP 117/65
[2018-06-13] MEDS: OXYBUTYNIN (DITROPAN) 5 MG TAB PO SCH ×2 (08:21→20:11)
[2018-06-13] MEDS: LIDOCAINE 4% (SALONPAS) PATCH TOP SCH (08:21)
[2018-06-13] MEDS: VITAMIN D3 1,000 UNITS (CHOLECALCIFEROL) TABLET PO SCH (08:21)
--- NOTE | 2018-06-13 13:22 | PM&R Progress Note ---
Subjective HPI/CC On Admission Date Seen by Provider: Jun 13, 2018 Time Seen by Provider: 11:15 CC: Debility following fall with TBI with large frontal scalp hematoma left knee hematoma without fracture and left wrist nondisplaced radial styloid fx HPI: This is an 82-year-old white female who has been a patient in inpatient rehabilitation unit at [facility] 10 months ago who is a patient of Dr. Acharya 'bon who sustained a traumatic brain injury when she fell on her face after she missed a step heading into a local restaurant. She is maintained on Coumadin long-term due to hypercoagulable state with history of blood clots in the past. She was placed on the trauma service along with multiple consultants who placed her left wrist in a brace and monitor closely over the last 3 days with pain management and ambulation as much as possible with the use of incentive spirometer. Narcotic bowel is now resolved and she is currently eating lunch but has pain in her left ribs and has a history of for fractures in the past. She lives at home alone and will return to home to live independently after discharge from the rehabilitation facility. Subjective/Events-last exam Pt doing well and independently moving around and performing her own ADL's and ready for DC tomorrow Coumadin dose 6 MG daily and INR 2.9 right on target so will go home on 6mg tomorrow Denies any pain Confidence is increasing DC Thursday at 1300 with niece Review of Systems General: Fatigue Objective Exam Vital Signs Vital Signs Date Time Temp Pulse Resp B/P (MAP) Pulse Ox O2 Delivery O2 Flow Rate FiO2 06/13/18 09:59 Room Air 06/13/18 05:05 97.2 68 16 117/65 (82) 96 Capillary Refill : Less Than 3 Seconds General Appearance: No Apparent Distress, WD/WN, Chronically ill, Obese, Other (Improved ecchymosis) HEENT: PERRL/EOMI, Normal ENT Inspection, Pharynx Normal, Moist Mucous Membranes Neck: Full Range of Motion, Normal Inspection, Non Tender, Supple Respiratory: Chest Non Tender, Lungs Clear, Normal Breath Sounds, No Accessory Muscle Use, No Respiratory Distress, Other Cardiovascular: Regular Rate, Rhythm, No Edema, No Gallop, No JVD, No Murmur Gastrointestinal: Normal Bowel Sounds, No Organomegaly, No Pulsatile Mass, Non Tender, Soft Back: Normal Inspection, No CVA Tenderness, No Vertebral Tenderness Extremity: Normal Capillary Refill, Normal Inspection, Normal Range of Motion, Non Tender, No Calf Tenderness, No Pedal Edema Neurologic/Psychiatric: Alert, Oriented x3, No Motor/Sensory Deficits, Normal Mood/Affect Skin: Normal Color, Warm/Dry Lymphatic: No Adenopathy Results/Procedures Lab Patient resulted labs reviewed. 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 Facial ecchymosis from fall Left radius fracture placed in brace Left knee hematoma Left rib fractures Overactive bladder Depression Status post constipation now resolved Vaginal bleeding scant amount of which she reports this happens periodically now resolved Plan: Home meds Coumadin decreased to 6mg daily to prevent overshoot and good INR yesterday Pain control with Lidocaine patch Incentive spirometer Intensive therapies Bowel regimen increased and will be maintained prn Will return to her home and live independently alone upon discharge (1) TBI (traumatic brain injury) (2) Rib fractures (3) Confusion (4) Debility (5) Radial styloid fracture (6) Anticoagulated (7) Open head injury (8) Nausea (9) Altered mental status Clinical Quality Measures DVT/VTE Risk/Contraindication: Risk Factor Score Per Nursin RFS Level Per Nursing on Admit: 4+=Very High JOSEY MEJIA DO Jun 13, 2018 13:22
[2018-06-13 17:37] VITALS: BP 120/64
[2018-06-13] MEDS: warFARin 3 MG (COUMADIN) TAB PO SCH (18:00)
[2018-06-13] MEDS: PATCH REMOVAL TP SCH (20:11)
[2018-06-14 05:24] VITALS: BP 132/70
[2018-06-14] MEDS ORDERED: WARF3TAB PO (08:20)
--- NOTE | 2018-06-14 08:22 | D/C HH Face to Face Order ---
D/C Face to Face Orders Instructions for Patient Via [facility], Patient Instructions/FollowUp: Dr Acharya this week Dr Montes as scheduled this week Physician to follow Patient: Dr Acharya Discharge Diet for Home: No Restrictions, Coumadin Patient Diet Patient Problems: Fall Left wrist fracture Anticoagulation chronic h/o DVT/PE's Goals for Patient: Independent ADL's Patient Data-Allergies,Ht & Wt Patient Allergies: Coded Allergies: Penicillins (Verified Allergy, Mild, Pt has received Ceftriaxone in the past w/o issue, 05/28/18) Height (Feet): 5 Height (Inches): 0.00 Weight (Pounds): 216 Weight (Ounces): 1.6 Home Health Need/Face to Face Date of Face to Face: Jun 14, 2018 Clinical Findings: Generalized weakness and fatigue, Instability, Unsteady gait I have seen Pt [id number]: Yes Discharged To: Home Diagnosis/Conditions: Fall Left wrist fracture Anticoagulation chronic h/o DVT/PE's Patient is Homebound due to: [place] fall risk due to instabilty, Muscle weakness Homebound Status Due to the above stated illness, injury or surgical procedure (medical condition or diagnosis) and associated clinical findings, the patient is homebound because of his/her inability to leave home except with aid of a supportive device and/or person AND leaving the home requires a considerable and taxing effort or is medically contraindicated. Pt req the following assistanc: Cane Home Health Nursing Orders Home Health Services Order: Nursing Services, Appliance Repairer-Evaluate & Treat, Physical Therapy-Evaluate & Treat Home Health Infusion Therapy Line Type: [place] Lock Site Location: Forearm Certify Stmt I certify that this patient is under my care and that I, a nurse practitioner or a physician; a golf course assistant working with me, had a face to face encounter that - meets the physician face to face encounter requirements with this patient as dated. JOSEY MEJIA DO Jun 14, 2018 08:22
--- NOTE | 2018-06-14 08:22 | Occupational Ther Daily Note ---
OT Current Status-Daily Note Subjective Pt alert, sitting EOB. Pt agrees to therapy. States that only fear is if she can't make it to the bathroom at home in time. No c/o pain. Mental Status/Objective Patient Orientation: Person, Place, Time, Situation Therapy Code Descriptions/Definitions Functional [place] Measure: 0=Not Assessed/NA 4=Minimal Assistance 1=Total Assistance 5=Supervision or Setup 2=Maximal Assistance 6=Modified [place] 3=Moderate Assistance 7=Complete [place] ADL-Treatment Therapy Code Descriptions/Definitions Functional [place] Measure: 0=Not Assessed/NA 4=Minimal Assistance 1=Total Assistance 5=Supervision or Setup 2=Maximal Assistance 6=Modified [place] 3=Moderate Assistance 7=Complete [place] Therapy Quality Codes: 6 Independent with activity with or without an assistive device 5 Patient requires set up or clean up by helper. Patient completes activity by themselves 4 Supervision or touching assist (CGA). [place] provide cues , steadying assist 3 The helper provides less than half the effort to complete the activity 2 The helper provides more than half the effort to complete the activity 1 Dependent. The helper does all the effort to complete an activity 7 Patient refused to complete or attempt activity 9 The patient did not perform the activity before the current illness or injury 88 Not attempted due to Medical conditions or safety concerns Eating (FIM): 7 (Pt demonstrates ability to complete own set up and use regular utensils to eat.) Eating (QC): 6 Grooming (FIM): 7 (Using sink to stabilize, pt able to complete by self.) Oral Hygiene (QC): 6 Bathing (FIM): 6 (Using shower chair with cutout, long handle sponge, grabbars and hand held shower pt able to complete by self.) Bathing Location: L Arm, R Arm, L Upper Leg, R Upper Leg, L Lower Leg ( including foot), R Lower Leg (including foot), Chest, Abdomen, Buttocks, Perineal Area Shower/Bathe Self (QC): 6 Upper Body (FIM): 6 (Using cane to retreive clothing, pt able to complete dressing by self.) Upper Body Dressing (QC): 6 Lower Body Dressing (FIM): 6 (Using cane to retreive clothing, pt able to complete dressing by self.) Lower Body Dressing (QC): 6 On/Off Footwear (QC): 6 Toileting (FIM): 7 (Pt able to complete own toileting by self.) Toileting Hygiene (QC): 6 Transfers (B, C, W/C) (FIM): 6 (Using cane, pt able to complete.) Toilet/Commode Transfer (FIM): 6 (Using cane, pt able to complete.) Toilet Transfer (QC): 6 Shower Transfer(FIM): 6 (Using cane and grabbars, pt able to complete.) Pt to discharge today to go back to apartment independently. After therapy, pt sitting in recliner with call light/phone in reach. All needs met in room. OT Short Term Goals Short Term Goals Time Frame: Jun 07, 2018 Upper Body Dressing(FIM): 5 Lower Body Dressing(FIM): 5 Toileting(FIM): 5 Toilet/Commode Transfer(FIM): 5 Additional Short Term Goals: 1-Demonstrate ADL Tasks, 2-Verbalize Understanding , 3-ImproveStrength/Cintia 1=Demonstrate adherence to instructed precautions during ADL tasks. 2=Patient will verbalize/demonstrate understanding of assistive devices/ modifications for ADL. 3=Patient will improve strength/tolerance for activity to enable patient to perform ADL's. OT Planning Manager Goals Planning Manager Goals Time Frame: Jun 21, 2018 Eating (FIM): 6 (met-06/14/18) Eating (QC): 6 (met-06/14/18) Groomin (met-06/14/18) Oral Hygiene (QC): 6 (met-06/14/18) Bathing(FIM): 6 Shower/Bathe Self (QC): 6 (met-06/14/18) Upper Body Dressing(FIM): 6 (met-06/14/18) Upper Body Dressing (QC): 6 (met-06/14/18) Lower Body Dressing(FIM): 6 (met-06/14/18) Lower Body Dressing (QC): 6 (met-06/14/18) On/Off Footwear (QC): 6 (met-06/14/18) Toileting(FIM): 6 (met-06/14/18) Toileting Hygiene (QC): 6 (met-06/14/18) Toilet/Commode Transfer(FIM): 6 (met-06/14/18) Toilet/Commode Transfer (QC): 6 (met-06/14/18) Shower Transfer(FIM): 6 (met-06/14/18) Additional Goals: 1-Demonstrate ADL Tasks, 2-Verbalize Understanding, 3- ImproveStrength/Cintia 1=Demonstrate adherence to instructed precautions during ADL tasks. 2=Patient will verbalize/demonstrate understanding of assistive devices/ modifications for ADL. 3=Patient will improve strength/tolerance for activity to enable patient to perform ADL's. OT Education/Plan Discharge Recommendations Plan/Recommendations: Discharge/Goals Met Treatment Plan/Plan of Care Patient would benefit from OT for education, treatment and training to promote independence in ADL's, mobility, safety and/or upper extremity function for ADL' s. Plan of Care: ADL Retraining, Functional Mobility, Group Exercise/Act as Ind, UE Funct Exercise/Act Treatment Duration: Jun 21, 2018 Frequency: At least 5 of 7 days/Wk (IRF) Estimated Hrs Per Day: 1.5 hours per day Agreement: Yes Rehab Potential: Good Time/GCodes Start Time: 08:00 Stop Time: 09:00 Total Time Billed (hr/min): 60 Billed Treatment Time 1 visit-ADL 4 (60 min) PAULINO MEJIA Jun 14, 2018 08:22
--- NOTE | 2018-06-14 08:23 | Discharge Summary ---
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 Facial ecchymosis from fall Left radius fracture placed in brace Left knee hematoma Left rib fractures Overactive bladder Depression Status post constipation now resolved Vaginal bleeding scant amount of which she reports this happens periodically now resolved Discharge Summary Discharge Physical Examination Allergies: Coded Allergies: Penicillins (Verified Allergy, Mild, Pt has received Ceftriaxone in the past w/o issue, 05/28/18) Vitals & I&Os Vital Signs Date Time Temp Pulse Resp B/P (MAP) Pulse Ox O2 Delivery O2 Flow Rate FiO2 06/14/18 05:24 98.0 75 18 132/70 (90) 96 Room Air Hospital Course Was the Problem List Reviewed?: Yes Hospital course: Patient had a standard and lengthy hospital course for 15 days in inpatient rehabilitation after suffering a fall with facial contusions and closed head injury maintain on anticoagulation due to history of DVT and PEs in the past. Patient adjusted to therapy schedule participating and everything was asked of her. Very slow recovery but needed to be back to near baseline prior to discharge since she lives at home at [place]. Overall she improved and anticoagulation was maintained with Lovenox bridge until back to therapeutic level of which Dr. Acharya manages on an ongoing basis. Bowels remain normal pain was controlled and no other pain medication was given due to the confusion it caused. All deficits that were present at time of admission were nearly completely resolved she was ambulating around with a cane independently and was ready for discharge. Labs (last 24 hrs) Laboratory Tests 06/01/18 04:50: White Blood Count 4.3, Red Blood Count 3.26L, Hemoglobin 10.6L, Hematocrit 33L, Mean Corpuscular Volume 100H, Mean Corpuscular Hemoglobin 33, Mean Corpuscular Hemoglobin Concent 32, Red Cell Distribution Width 13.6, Platelet Count 186, Mean Platelet Volume 9.9, Neutrophils (%) (Auto) 56, Lymphocytes (%) (Auto) 29, Monocytes (%) (Auto) 11, Eosinophils (%) (Auto) 5, Basophils (%) (Auto) 1, Neutrophils # (Auto) 2.4, Lymphocytes # (Auto) 1.2, Monocytes # (Auto) 0.5, Eosinophils # (Auto) 0.2, Basophils # (Auto) 0.0, Prothrombin Time 17.3H, INR Comment 1.4, Sodium Level 137, Potassium Level 4.3, Chloride Level 105, Carbon Dioxide Level 25, Anion Gap 7, Blood Urea Nitrogen 24H, Creatinine 1.05, Estimat Glomerular Filtration Rate 50, BUN/Creatinine Ratio 23, Glucose Level 105, Calcium Level 8.9, Corrected Calcium 9.4, Total Bilirubin 1.3H, Aspartate Amino Transf (AST/SGOT) 17, Alanine Aminotransferase (ALT/SGPT) 11, Alkaline Phosphatase 70, Total Protein 6.2L, Albumin 3.4 06/02/18 07:15: Prothrombin Time 18.3H, INR Comment 1.5H 06/03/18 08:45: Prothrombin Time 19.0H, INR Comment 1.6H 06/05/18 04:25: Prothrombin Time 21.7H, INR Comment 1.8H 06/07/18 04:45: Prothrombin Time 25.3H, INR Comment 2.2H 06/09/18 05:25: Prothrombin Time 31.2H, INR Comment 2.8H, White Blood Count 3.9L, Red Blood Count 3.33L, Hemoglobin 10.7L, Hematocrit 33L, Mean Corpuscular Volume 100H, Mean Corpuscular Hemoglobin 32, Mean Corpuscular Hemoglobin Concent 32, Red Cell Distribution Width 13.7, Platelet Count 227, Mean Platelet Volume 9.4, Neutrophils (%) (Auto) 52, Lymphocytes (%) (Auto) 30, Monocytes (%) (Auto) 10, Eosinophils (%) (Auto) 7, Basophils (%) (Auto) 1, Neutrophils # (Auto) 2.0, Lymphocytes # (Auto) 1.2, Monocytes # (Auto) 0.4, Eosinophils # (Auto) 0.3, Basophils # (Auto) 0.0, Sodium Level 142, Potassium Level 4.1, Chloride Level 110H, Carbon Dioxide Level 22, Anion Gap 10, Blood Urea Nitrogen 18, Creatinine 0.92, Estimat Glomerular Filtration Rate 59, BUN/Creatinine Ratio 20, Glucose Level 96, Calcium Level 8.5, Corrected Calcium 9.1, Total Bilirubin 0.6, Aspartate Amino Transf (AST/SGOT) 23, Alanine Aminotransferase (ALT/SGPT) 17, Alkaline Phosphatase 78, Total Protein 6.1L, Albumin 3.3 06/10/18 05:35: Prothrombin Time 33.9H, INR Comment 3.2H 06/12/18 07:30: Prothrombin Time 31.5H, INR Comment 2.9H Pending Labs Laboratory Tests 06/01/18 04:50: White Blood Count 4.3, Red Blood Count 3.26, Hemoglobin 10.6, Hematocrit 33, Mean Corpuscular Volume 100, Mean Corpuscular Hemoglobin 33, Mean Corpuscular Hemoglobin Concent 32, Red Cell Distribution Width 13.6, Platelet Count 186, Mean Platelet Volume 9.9, Neutrophils (%) (Auto) 56, Lymphocytes (%) (Auto) 29, Monocytes (%) (Auto) 11, Eosinophils (%) (Auto) 5, Basophils (%) (Auto) 1, Neutrophils # (Auto) 2.4, Lymphocytes # (Auto) 1.2, Monocytes # (Auto) 0.5, Eosinophils # (Auto) 0.2, Basophils # (Auto) 0.0, Prothrombin Time 17.3, INR Comment 1.4, Sodium Level 137, Potassium Level 4.3, Chloride Level 105, Carbon Dioxide Level 25, Anion Gap 7, Blood Urea Nitrogen 24, Creatinine 1.05, Estimat Glomerular Filtration Rate 50, BUN/Creatinine Ratio 23, Glucose Level 105, Calcium Level 8.9, Corrected Calcium 9.4, Total Bilirubin 1.3, Aspartate Amino Transf (AST/SGOT) 17, Alanine Aminotransferase (ALT/SGPT) 11, Alkaline Phosphatase 70, Total Protein 6.2, Albumin 3.4 06/02/18 07:15: Prothrombin Time 18.3, INR Comment 1.5 06/03/18 08:45: Prothrombin Time 19.0, INR Comment 1.6 06/05/18 04:25: Prothrombin Time 21.7, INR Comment 1.8 06/07/18 04:45: Prothrombin Time 25.3, INR Comment 2.2 06/09/18 05:25: Prothrombin Time 31.2, INR Comment 2.8, White Blood Count 3.9, Red Blood Count 3.33, Hemoglobin 10.7, Hematocrit 33, Mean Corpuscular Volume 100, Mean Corpuscular Hemoglobin 32, Mean Corpuscular Hemoglobin Concent 32, Red Cell Distribution Width 13.7, Platelet Count 227, Mean Platelet Volume 9.4, Neutrophils (%) (Auto) 52, Lymphocytes (%) (Auto) 30, Monocytes (%) (Auto) 10, Eosinophils (%) (Auto) 7, Basophils (%) (Auto) 1, Neutrophils # (Auto) 2.0, Lymphocytes # (Auto) 1.2, Monocytes # (Auto) 0.4, Eosinophils # (Auto) 0.3, Basophils # (Auto) 0.0, Sodium Level 142, Potassium Level 4.1, Chloride Level 110, Carbon Dioxide Level 22, Anion Gap 10, Blood Urea Nitrogen 18, Creatinine 0.92, Estimat Glomerular Filtration Rate 59, BUN/Creatinine Ratio 20, Glucose Level 96, Calcium Level 8.5, Corrected Calcium 9.1, Total Bilirubin 0.6, Aspartate Amino Transf (AST/SGOT) 23, Alanine Aminotransferase (ALT/SGPT) 17, Alkaline Phosphatase 78, Total Protein 6.1, Albumin 3.3 06/10/18 05:35: Prothrombin Time 33.9, INR Comment 3.2 06/12/18 07:30: Prothrombin Time 31.5, INR Comment 2.9 Discharge Home Medications: Active Scripts Active Coumadin (Warfarin Sodium) 3 Mg Tablet 6 Mg PO DAILY@1800 7 Days Reported Oxybutynin Chloride ER (Oxybutynin Chloride) 10 Mg Tab.er.24 10 Mg PO DAILY Vitamin D3 (Cholecalciferol (Vitamin D3)) 2,000 Unit Capsule 2,000 Unit PO DAILY Citalopram HBr (Citalopram Hydrobromide) 20 Mg Tablet 20 Mg PO DAILY Jantoven (Warfarin Sodium) 2 Mg Tablet 5 Mg PO 1800 TAKES 2 & 1/2 (2MG) TABLET Instructions to patient/family Please see electronic discharge instructions given to patient. Diagnosis/Problems Diagnosis/Problems (1) TBI (traumatic brain injury) (2) Rib fractures (3) Confusion (4) Debility (5) Radial styloid fracture (6) Anticoagulated (7) Open head injury (8) Nausea (9) Altered mental status Clinical Quality Measures DVT/VTE Risk/Contraindication: Risk Factor Score Per Nursin RFS Level Per Nursing on Admit: 4+=Very High JOSEY MEJIA DO Jun 14, 2018 08:23
[2018-06-14] MEDS: OXYBUTYNIN (DITROPAN) 5 MG TAB PO SCH (08:47)
[2018-06-14] MEDS: LIDOCAINE 4% (SALONPAS) PATCH TOP SCH (08:47)
[2018-06-14] MEDS: VITAMIN D3 1,000 UNITS (CHOLECALCIFEROL) TABLET PO SCH (08:47)
--- NOTE | 2018-06-14 09:26 | Physical Therapy Daily Note ---
PT Daily Note-Current Subjective Patient in recliner pre tx, agrees to PT, no complaints of pain. Patient is discharging from this facility today and needs FIM'ed. Appearance Patient in recliner post tx, has nurse call, phone, tray, all needs met. Mental Status Patient Orientation: Person, Place, Situation Transfers Therapy Code Descriptions/Definitions Functional [place] Measure: 0=Not Assessed/NA 4=Minimal Assistance 1=Total Assistance 5=Supervision or Setup 2=Maximal Assistance 6=Modified [place] 3=Moderate Assistance 7=Complete [place] Therapy Quality Codes: 6 Independent with activity with or without an assistive device 5 Patient requires set up or clean up by helper. Patient completes activity by themselves 4 Supervision or touching assist (CGA). [place] provide cues , steadying assist 3 The helper provides less than half the effort to complete the activity 2 The helper provides more than half the effort to complete the activity 1 Dependent. The helper does all the effort to complete an activity 7 Patient refused to complete or attempt activity 9 The patient did not perform the activity before the current illness or injury 88 Not attempted due to Medical conditions or safety concerns Transfers (B, C, W/C) (FIM): 6 Scootin Rollin Roll Left to Right (QC): 6 Supine to/from Sit: 6 Sit to/from Stand: 6 Sit to Lying (QC): 6 Sit to Stand (QC): 6 Chair/Gki-uu-Ipnsh Xfer(QC): 6 Bed to/from Chair: 6 Car Transfer (QC): 6 Patient performs bed mobility and transfers with mod I, car transfers mod I. Weight Bearing Right Lower Extremity: Right Full Weight Bearing Left Lower Extremity: Left Full Weight Bearing NWB left UE Gait Training Gait (FIM): 6 Distance: 500' Walk 10 feet (QC): 6 Walk 50 ft with 2 Turns(QC): 6 Walk 150 ft (QC): 6 Walking 10ft/uneven surface-QC: 6 Gait Assistive Device: Cane Small Base Quad Patient can ambulate 500' with a quad cane with mod I (including 50' with at least 2 turns of 90 degrees and 10' over an uneven surface). She ambulates slowly and carefully over the uneven surface. Wheelchair Training Does the Pt Use a Wheelchair?: No Stair Training Stair Training: Handrails/: 1 handrail Stairs (FIM): 2 #of Steps: 4 1 Step (curb) (QC): 5 4 Steps (QC): 5 Stairs: Pattern: Step to Level of Assist: 5 Patient can go up and down 4 steps using 1 handrail with SBA. Treatments bed mobility and transfers, ambulation, stair training Assessment Current Status: Fair Progress mod I with all mobility except for stairs. PT Short Term Goals Short Term Goals Time Frame: Jun 07, 2018 Gait (FIM): 2 Distance (FIM): 3=150 ft Gait Assistive Device: Cane Small Base Quad PT Skilled Nursing Goals Scientist Immunology Goals PT Scientist Immunology Goals Time Frame: Jun 23, 2018 Transfers (B,C,W/C) (FIM): 6 (met) Sit to Lying (QC): 6 (met) Lying-Sitting on Side/Bed(QC): 6 (met) Sit to Stand (QC): 6 (met) Rollin (met) Roll Left to Right (QC): 6 (met) Chair/Ebs-ip-Ksaon Xfer(QC): 6 (met) Car Transfer (QC): 6 (met) Does the Patient Walk: Yes Gait (FIM): 6 (met) Gait distance (FIM): 3=150 ft Walk 10 feet (QC): 6 (met) Walk 10ft-Uneven Surface(QC): 6 (met) Walk 50ft with 2 Turns (QC): 6 (met) Walk 150 ft (QC): 6 (met) Gait Assistive Device: Cane Small Base Quad Does the Pt use WC or Scooter?: No Stairs (FIM): 5 # of Steps: 4 1 Step (curb) (QC): 6 4 Steps (QC): 6 12 Steps (QC): 88 Picking up an Object (QC): 88 PT Plan Problem List Problem List: Activity Tolerance, Functional Strength, Safety, Balance, Gait, Transfer Treatment/Plan Treatment Plan: Continue Plan of Care Treatment Plan: Bed Mobility, Education, Functional Activity Cintia, Functional Strength, Group Therapy, Gait, Safety, Therapeutic Exercise, Transfers Treatment Duration: Jun 23, 2018 Frequency: At least 5 of 7 days/Wk (IRF) Estimated Hrs Per Day: 1.5 hours per day Patient and/or Family Agrees t: Yes Safety Risks/Education Patient Education: Gait Training, Transfer Techniques, Steps, Correct Positioning, Safety Issues Teaching Recipient: Patient Teaching Methods: Demonstration, Discussion Response to Teaching: Reinforcement Needed Time/GCodes Time In: 899 Time Out: 919 Total Billed Treatment Time: 20 Total Billed Treatment 1 visit FA GLORY FLORENCE PT Jun 14, 2018 09:26
--- NOTE | 2018-06-14 09:33 | Therapy Team Discharge Summary ---
Therapy Discharge Summary Discharge Recommendations Date of Discharge Therapy D/C Recommendations: Home w/ Family Support, Occupational Therapy Home Care, Scheduled Assistance Physical Therapy Patient was admitted to rehab with debility. Upon evaluation patient performed bed mobility with mod/max assist, supine <-> sit with mod assist, sit <-> stand with min assist, transfers with CGA/[place], car transfers min assist, ambulated 50 ' with a quad cane with min assist. Patient has been performing bed mobility and transfer training, balance and endurance training, functional strengthening , stair training, gait training, and education. Patient has made good progress but has not met her shelter goals for stairs. Now, patient performs bed mobility and transfers with mod I, car transfers mod I, ambulates 500' with a quad cane with mod I (including 50' with at least 2 turns of 90 degrees and 10' over an uneven surface), and can go up and down 4 steps using 1 handrail with SBA. Patient is discharging from this facility today and will be discharged from PT at this time. Occupational Therapy Restricted Funct UE ROM PT [place] Assessor Goals [place] Assessor Goals PT [place] Assessor Goals Time Frame: Jun 23, 2018 Transfers (B,C,W/C) (FIM): 6 (met) Roll Left to Right (QC): 6 (met) Sit to Lying (QC): 6 (met) Lying-Sitting on Side/Bed(QC): 6 (met) Sit to Stand (QC): 6 (met) Chair/Czn-pw-Ujkvl Xfer(QC): 6 (met) Car Transfer (QC): 6 (met) Does the Patient Walk: Yes Gait (FIM): 6 (met) Gait distance (FIM): 3=150 ft Walk 10 feet (QC): 6 (met) Walk 10ft-Uneven Surface(QC): 6 (met) Walk 50ft with 2 Turns (QC): 6 (met) Walk 150 ft (QC): 6 (met) Gait Assistive Device: Cane Small Base Quad Does the Pt use WC or Scooter?: No Stairs (FIM): 5 # of Steps: 4 1 Step (curb) (QC): 6 4 Steps (QC): 6 12 Steps (QC): 88 Picking up an Object (QC): 88 OT Nursing Home Goals Nursing Home Goals Time Frame: Jun 21, 2018 Eating (FIM): 6 (met-06/14/18) Eating (QC): 6 Oral Hygiene (QC): 6 Grooming(FIM): 6 Bathing(FIM): 6 Shower/Bathe Self (QC): 6 Upper Body Dressing(FIM): 6 Upper Body Dressing (QC): 6 Lower Body Dressing(FIM): 6 Lower Body Dressing (QC): 6 On/Off Footwear (QC): 6 Toileting(FIM): 6 Toileting Hygiene (QC): 6 Toilet/Commode Transfer(FIM): 6 Toilet/Commode Transfer (QC): 6 Shower Transfer(FIM): 6 Additional Goals: 1-Demonstrate ADL Tasks, 2-Verbalize Understanding, 3- ImproveStrength/Cintia 1=Demonstrate adherence to instructed precautions during ADL tasks. 2=Patient will verbalize/demonstrate understanding of assistive devices/ modifications for ADL. 3=Patient will improve strength/tolerance for activity to enable patient to perform ADL's. GLORY STOKES PT Jun 14, 2018 09:33
--- NOTE | 2018-06-14 13:30 | NUR ---
AMBROSEAYAN Mel demonstrates understanding of discharge instructions and accurately returns instructions upon questioning. Copy of Post-Discharge Instructions given to pt. AMBROSEAYAN Mel is able to manage continuing needs after discharge. Patients belongings returned to . Patient discharged from [facility] on 06-14-18 at 1330. AMBROSEAYAN Mel left floor via , accompanied by family].
[2018-06-14 15:05] VITALS: BP 132/70
--- NOTE | 2018-06-15 08:13 | Therapy Team Discharge Summary ---
Therapy Discharge Summary Discharge Recommendations Date of Discharge Jun 14, 2018 at 15:09 Therapy D/C Recommendations: Home w/ Family Support, Occupational Therapy Home Care, Scheduled Assistance Occupational Therapy Pt admitted to ARU with debility following acute hospitalization after fall with left wrist fracture. On admission pt required minimal assistance for bathing, dressing, and toilet transfer. Skilled OT intervention focused on ADL training, transfers, strengthening, and safety education. Pt made good progress with therapy and by discharge is completing eating, grooming, and toileting independently and other basic ADLs and transfers with modified independence. Pt met all OT LTG. Pt discharge home. D/c ARU OT. Restricted Funct UE ROM PT Residential Goals Global Analytics Head Goals PT Residential Goals Time Frame: Jun 23, 2018 Transfers (B,C,W/C) (FIM): 6 (met) Roll Left to Right (QC): 6 (met) Sit to Lying (QC): 6 (met) Lying-Sitting on Side/Bed(QC): 6 (met) Sit to Stand (QC): 6 (met) Chair/Tbc-nv-Wjisq Xfer(QC): 6 (met) Car Transfer (QC): 6 (met) Does the Patient Walk: Yes Gait (FIM): 6 (met) Gait distance (FIM): 3=150 ft Walk 10 feet (QC): 6 (met) Walk 10ft-Uneven Surface(QC): 6 (met) Walk 50ft with 2 Turns (QC): 6 (met) Walk 150 ft (QC): 6 (met) Gait Assistive Device: Cane Small Base Quad Does the Pt use WC or Scooter?: No Stairs (FIM): 5 # of Steps: 4 1 Step (curb) (QC): 6 4 Steps (QC): 6 12 Steps (QC): 88 Picking up an Object (QC): 88 OT [employer] Head Goals [employer] Head Goals Time Frame: Jun 21, 2018 Eating (FIM): 6 (met-06/14/18) Eating (QC): 6 (met-06/14/18) Oral Hygiene (QC): 6 (met-06/14/18) Grooming(FIM): 6 (met-06/14/18) Bathing(FIM): 6 Shower/Bathe Self (QC): 6 (met-06/14/18) Upper Body Dressing(FIM): 6 (met-06/14/18) Upper Body Dressing (QC): 6 (met-06/14/18) Lower Body Dressing(FIM): 6 (met-06/14/18) Lower Body Dressing (QC): 6 (met-06/14/18) On/Off Footwear (QC): 6 (met-06/14/18) Toileting(FIM): 6 (met-06/14/18) Toileting Hygiene (QC): 6 (met-06/14/18) Toilet/Commode Transfer(FIM): 6 (met-06/14/18) Toilet/Commode Transfer (QC): 6 (met-06/14/18) Shower Transfer(FIM): 6 (met-06/14/18) Additional Goals: 1-Demonstrate ADL Tasks, 2-Verbalize Understanding, 3- ImproveStrength/Cintia 1=Demonstrate adherence to instructed precautions during ADL tasks. 2=Patient will verbalize/demonstrate understanding of assistive devices/ modifications for ADL. 3=Patient will improve strength/tolerance for activity to enable patient to perform ADL's. VANNA BRAGG OT Jun 15, 2018 08:13
== END 2018-06-14 15:09 | disposition home health service (06) | DRG 950 ==
PROVIDERS: ADMIT Internal Medicine; ATTEND Internal Medicine
DX: S06.9X9D Unspecified intracranial injury with loss of consciousness of unspecified duration, subsequent encounter (principal); S00.03XD Contusion of scalp, subsequent encounter; S52.512D Displaced fracture of left radial styloid process, subsequent encounter for closed fracture with routine healing; S22.42XD Multiple fractures of ribs, left side, subsequent encounter for fracture with routine healing; S80.02XD Contusion of left knee, subsequent encounter; K21.9 Gastro-esophageal reflux disease without esophagitis; K57.90 Diverticulosis of intestine, part unspecified, without perforation or abscess without bleeding; F41.9 Anxiety disorder, unspecified; F32.9 Major depressive disorder, single episode, unspecified; K44.9 Diaphragmatic hernia without obstruction or gangrene; N32.81 Overactive bladder; W10.8XXD Fall (on) (from) other stairs and steps, subsequent encounter; Y92.511 Restaurant or cafe as the place of occurrence of the external cause; Z86.711 Personal history of pulmonary embolism; Z86.718 Personal history of other venous thrombosis and embolism; Z79.01 Long term (current) use of anticoagulants
CPT/HCPCS: 36415; 80053; 85025; 85610

== ENCOUNTER 2018-10-22 11:12 | Emergency (ER) | payer MEDICARE ==
[~2018-10-22] VITALS: Ht 157.5 cm; Wt 101.6 kg
[~2018-10-22 11:12] MED LIST changes: -ALPRAZolam 0.25 MG (XANAX) TAB PO PRN; -CALCIUM CARBONATE 500 MG (TUMS) TAB.CHEW PO PRN; -LOPERAMIDE 2 MG (IMODIUM) CAP PO PRN; -MELATONIN 3 MG TABLET PO PRN; -ONDANSETRON 4 MG (ZOFRAN) ORAL DISSOLVE TAB PO PRN; +WARF3TAB PO; -diphenhydrAMINE 25 MG TAB (BENADRYL) PO PRN
--- NOTE | 2018-10-22 11:41 | ED Fall/Injury ---
General Chief Complaint: Trauma-Non Activation Stated Complaint: FALL Nursing Triage Note: Pt was walking around in facility and tripped over her own feet. Denies neck, back, head pain. No LOC. Source: patient, EMS Exam Limitations: no limitations History of Present Illness Date Seen by Provider: Oct 22, 2018 Time Seen by Provider: 11:25 Initial Comments 83 yo female patient presents to the ED for c/o falling after tripping on a metal strip in the doorway at her home. Patient reports a laceration to the forehead. Patient denies loss of consciousness, headache, confusion, dizziness, neck pain, or back pain. Location Injury Occurred: home Occurred: just prior to arrival Injuries/Pain Location: face (forehead) Context: tripped Loss of Consciousness: no loss of consciousness Allergies and Home Medications Allergies Coded Allergies: Penicillins (Verified Allergy, Mild, Pt has received Ceftriaxone in the past w/o issue, 05/28/18) Home Medications Cholecalciferol (Vitamin D3) 2,000 Unit Capsule, 2,000 UNIT PO DAILY, (Reported) Citalopram Hydrobromide 20 Mg Tablet, 20 MG PO DAILY, (Reported) Oxybutynin Chloride 10 Mg Tab.er.24, 10 MG PO DAILY, (Reported) Warfarin Sodium 3 Mg Tablet, 6 MG PO DAILY@1800 Prescribed by: JOSEY MEJIA on 06/14/18 0820 Patient Home Medication List Home Medication List Reviewed: Yes Review of Systems Review of Systems Constitutional: no symptoms reported Eyes: Denies Blindness, Denies Blurred Vision, Denies Drainage, Denies Pain, Denies Tunnel Vision, Denies Vision Changes Ears, Nose, Mouth, Throat: see HPI; denies ear pain, denies ear discharge, denies nose pain, denies nose discharge, denies epistaxis, denies mouth pain, denies mouth swelling, denies loose teeth, denies throat pain Respiratory: No cough, No short of breath, No stridor, No wheezing Cardiovascular: No chest pain, No palpitations, No syncope Gastrointestinal: no symptoms reported Genitourinary: no symptoms reported Musculoskeletal: No back pain, No joint pain, No joint swelling, No neck pain Skin: see HPI; No change in color; other (laceration to the forehead) Psychiatric/Neurological: Denies Headache, Denies Numbness, Denies Paresthesia, Denies Seizure, Denies Tingling, Denies Weakness All Other Systems Reviewed Negative Unless Noted: Yes (Negative excepted noted.) Past Ixmbcgo-Swpuxi-Sjovcm Hx Past Med/Social Hx: Reviewed Nursing Past Med/Soc Hx Patient Social History Recent Foreign Travel: No Contact w/Someone Who Travel: No Recent Infectious Disease Expo: No Recent Hopitalizations: No Physical Abuse: No Sexual Abuse: No Mistreated: No Fear: No Immunizations Up To Date Tetanus Booster (TDap): Less than 5yrs PED Vaccines UTD: Yes Seasonal Allergies Seasonal Allergies: No Past Medical History Surgeries: Yes (GREEN FIELD FILTER, LTK, RTK, L FOREARM METAL PLATE) Abdominal, Appendectomy, Eye Surgery, Orthopedic Respiratory: Yes Pulmonary Embolism Cardiac: Yes Deep Vein Thrombosis Neurological: No (irina filter placement) Genitourinary: No Bladder Infection Gastrointestinal: Yes Gastroesophageal Reflux, Diverticulosis, Hiatal Hernia Musculoskeletal: Yes Arthritis, Fractures Endocrine: No HEENT: Yes Cataract Loss of Vision: Denies Hearing Impairment: Hard of Hearing Cancer: No Psychosocial: Yes Anxiety, Depression Integumentary: No Blood Disorders: Yes (DVT/PE) Family Medical History Reviewed Nursing Family Hx Cardiovascular disease G8 BROTHER Hypertension G8 BROTHER Myocardial infarction 19 MOTHER Respiratory disorder 19 FATHER G8 BROTHER No Pertinent Family Hx Physical Exam Vital Signs Vital Signs - First Documented 10/22/18 10/22/18 11:12 12:55 Temp 99.1 Pulse 75 Resp 12 B/P (MAP) 173/69 (103) Pulse Ox 96 O2 Delivery Room Air Capillary Refill : Less Than 3 Seconds Height, Weight, BMI Height: 5'2.00" Weight: 224lbs. 1.6oz. 101.624508qg; 43.9 BMI Method:Stated General Appearance: WD/WN, no apparent distress HEENT: PERRL/EOMI, normal ENT inspection, TMs normal, pharynx normal; No other (no capps sign, raccoon eyes, or hemotympanum) Neck: non-tender, full range of motion, supple, normal inspection Cardiovascular: normal peripheral pulses, regular rate, rhythm, no gallop, no JVD, no murmur Respiratory: chest non-tender, lungs clear, normal breath sounds, no respiratory distress, no accessory muscle use Peripheral Pulses: 2+ Dorsalis Pedis (R), 2+ Left Dors-Pedis (L), 2+ Radial Pulses (R), 2+ Radial Pulses (L) Gastrointestinal: normal bowel sounds, non tender, soft, no organomegaly; No distended Back: normal inspection, no CVA tenderness, no vertebral tenderness Extremities: normal range of motion, non-tender, no calf tenderness, normal capillary refill, pelvis stable, pedal edema (1+ pedal edema bilat.) Neurologic/Psychiatric: 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 ), other (2.5 cm irregular lac to the forehead without active bleeding. mild swelling without ecchymosis surrounding the laceration. ) Olla Coma Score Best Eye Response: (4) Open Spontaneously Best Verbal Response: (5) Oriented Best Motor Response: (6) Obeys Commands Olla Total: 15 Procedures/Interventions Wound Location: Face (forehead) Wound Length (cm): 2.5 Wound's Depth, Shape: superficial, irregular, contused tissue Wound Explored: clean Betadine Prep?: No (wound scrubbed with chlorhexidine and sterile saline) Other Closure Supply: Wound Adhesive Sterile Dressing Applied?: No Progress blood loss minimal. patient tolerated the procedure well. Progress/Results/Core Measures Results/Orders My Orders Orders - EDI SILVA Ct Head/Cervical Spine Wo (10/22/18 11:31) Vital Signs/I&O 10/22/18 10/22/18 11:12 12:55 Temp 99.1 99.1 Pulse 75 75 Resp 12 18 B/P (MAP) 173/69 (103) 151/80 (103) Pulse Ox 96 96 O2 Delivery Room Air Blood Pressure Mean: 103 Diagnostic Imaging Diagonstic Imaging: CT Plain Films/CT/US/NM/MRI: c-spine, head Comments Date of Exam:10/22/18 CT HEAD/CERVICAL SPINE WO PROCEDURE: CT head and CT cervical spine without contrast. TECHNIQUE: Multiple contiguous axial images were obtained through the brain and cervical spine without the use of intravenous contrast. Sagittal and coronal reformations through the cervical spine were then performed. Auto Exposure Controls were utilized during the CT exam to meet ALARA standards for radiation dose reduction. INDICATION: Fall. Forehead bruise and bump. COMPARISON: CT head on 05/28/2018. FINDINGS: CT head: No large acute territorial ischemia, mass, or hemorrhage. Chronic microvascular disease is seen in the periventricular and subcortical white matter. The ventricles and cortical sulci are prominent, consistent with generalized volume loss. The basilar cisterns are patent and unremarkable. The calvarium is intact. Scalp hematoma is noted in the midline of the forehead. The visualized paranasal sinuses are clear. CT cervical spine: No acute fracture or dislocation is seen in the cervical spine. No focal osseous lesions. Vertebral body heights are we ll-maintained. The craniocervical junction is well-maintained. Mild to moderate degenerative changes are seen in the cervical spine with disc osteophyte complexes and uncovertebral arthropathy. Soft tissues of the neck are unremarkable. IMPRESSION: 1. No hemorrhage or focal intra-axial mass. No CT evidence of large acute territorial ischemia. Scalp hematoma overlying the forehead in the midline. 2. No acute fracture or dislocation in the cervical spine. Dictated by: Dictated on workstation # [id number] Reviewed: Reviewed by Me (radiology report reviewed by me) Departure Communication (Admissions) Patient seen and evaluated. CT head and neck obtained. Wound repair performed. Diagnostic findings discussed with the patient. Patient refused analgesics throughout the emergency department visit. Plan for discharge to home. ED visit uneventful. Impression Primary Impression: Minor head injury without loss of consciousness Qualified Codes: S09.90XA - Unspecified injury of head, initial encounter Additional Impressions: Laceration of forehead without complication Qualified Codes: S01.81XA - Laceration without foreign body of other part of head, initial encounter Fall on same level from slipping, tripping or stumbling Qualified Codes: W01.0XXA - Fall on same level from slipping, tripping and stumbling without subsequent striking against object, initial encounter Disposition: 01 HOME, SELF-CARE Condition: Improved Departure-Patient Inst. Decision time for Depature: 12:21 Referrals: YADI ACHARYA MD (PCP/Family) Primary Care Physician Patient Instructions: Laceration Repair With Glue (DC), Preventing Falls, Minor Head Injury Add. Discharge Instructions: All discharge instructions reviewed with patient and/or family. Voiced understanding. Continue usual home medications. Tylenol over the counter as directed for pain or headache. Ice pack for 20 minute intervals as needed for pain. No strenuous activity or activities that may result in head injury until released by Dr. Acharya. You may begin showering tomorrow morning. Avoid scrubbing the glue/laceration. Follow-up with Dr. Acharya as an outpatient this week for recheck, call first thing Thursday for an appointment time. Return to the emergency department for worsened pain, dizziness, headache, changes in vision, confusion, changes in behavior, vomiting, seizure, shortness of air, chest pain, or any other concerns. EDI SILVA Oct 22, 2018 11:41
--- OUTSIDE RECORDS SUMMARY | 2018-10-22 12:11 | XMS REPORT | Continuity of Care Document ---
Author Organization Unknown Address Unknown Phone Unavailable Allergies Active Description Code Type Severity Reaction Onset Reported/Identified Relationship to Patient Clinical Status Yes Penicillins [id number] Drug Allergy Mild N/A 08/17/2017 Yes Penicillins [id number] Drug Allergy Mild Pt has received 05/28/2018 [...] 12/04/2009 Ot V58.61 01/30/2011 Ot 920 CONTUSION FACE/SCALP/NCK 01/30/2011 Ot 959.01 HEAD INJURY, NOS 01/30/2011 Ot E000.8 OTHER EXTERNAL CAUSE [...] THEODORE APRN Ot V58.61 ANTICOAGULANTS,LT,CURRENT USE 07/18/2015 ORELLANA DO, ANDREW L Ot S22.42XA MULTIPLE FRACTURES OF RIBS, LEFT SIDE, I 07/18/2015 ESTEBAN VALDERRAMA, ANDREW L Ot W01.0XXA FALL SAME LEV [...] FALL, INITIAL ENCOUNTER 11/09/2015 PAULO DALEY, YADI Betts Ot Y99.8 OTHER [...] Ot W19.XXXA UNSPECIFIED FALL, INITIAL ENCOUNTER 08/17/2017 PAULO DALEY, YADI Betts Ot Y99.8 OTHER EXTERNAL CAUSE STATUS 08/19/2017 PAULO DALEY, YADI Betts Ot F32.9 MAJOR DEPRESSIVE DISORDER, SINGLE EPISOD 08/19/2017 PAULO DALEY, YADI Betts Ot F41.9 ANXIETY DISORDER, UNSPECIFIED 08/19/2017 YADI [...] E 08/19/2017 YADI BATES MD Ot Z79.01 LONG-TERM (CURRENT) USE OF ANTICOAGULANT 08/19/2017 YADI BATES MD Ot Z79.899 OTHER NEWSPAPER PEDDLER (CURRENT) DRUG THERAPY 08/19/2017 YADI BATES MD Ot Z86.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 08/19/2017 YADI BATES MD Ot Z86.718 PERSONAL HISTORY OF OTHER VENOUS THROMBO 08/19/2017 YADI BATES MD Ot Z88.0 ALLERGY STATUS TO PENICILLIN 08/19/2017 YADI BATES MD Ot F32.9 MAJOR DEPRESSIVE DISORDER, SINGLE EPISOD 08/19/2017 YADI BATES MD, Ot F41.9 ANXIETY DISORDER, UNSPECIFIED 08/19/2017 YADI [...] E 08/19/2017 YADI BATES MD Ot Z79.01 NEWSPAPER PEDDLER (CURRENT) USE OF ANTICOAGULANT 08/19/2017 YADI BATES MD Ot Z79.899 OTHER NEWSPAPER PEDDLER (CURRENT) DRUG THERAPY 08/19/2017 PAULO DALEY, YADI [...] EYELID AND PERIOCULAR 08/21/2017 PAIGE JONES MD Ot S00.83XD CONTUSION OF OTHER PART OF HEAD, SUBSEQU 08/21/2017 PAIGE JONES MD Ot S42.292D OTH DISP FX OF UPPER END L HUMER, SUBS F 08/21/2017 PAIGE JONES MD Ot W19.XXXD UNSPECIFIED FALL, SUBSEQUENT ENCOUNTER 08/21/2017 PAIGE JONES MD Ot Z79.01 NEWSPAPER PEDDLER (CURRENT) USE OF ANTICOAGULANT 08/21/2017 PAIGE JONES [...] EYELID AND PERIOCULAR 08/21/2017 PAIGE JONES MD Ot S00.83XD CONTUSION OF OTHER PART OF HEAD, SUBSEQU 08/21/2017 PAIGE JONES MD Ot S42.292D OTH DISP FX OF UPPER END L HUMER, SUBS F 08/21/2017 PAIGE JONES MD Ot W19.XXXD UNSPECIFIED FALL, SUBSEQUENT ENCOUNTER 08/21/2017 PAIGE JONES MD Ot Z79.01 NEWSPAPER PEDDLER (CURRENT) USE OF ANTICOAGULANT 08/21/2017 PAIGE JONES [...] ENCOUNTER 08/28/2017 PAIGE JONES MD Ot Z79.01 LONG-TERM (CURRENT) USE OF ANTICOAGULANT 08/28/2017 PAIGE JONES [...] ENCOUNTER 09/02/2017 PAIGE JONES MD Ot Z79.01 NEWSPAPER PEDDLER (CURRENT) USE OF ANTICOAGULANT 09/02/2017 PAIGE JONES MD Ot Z86.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 09/02/2017 KAREN DALEY, PAIGE E Ot Z86.718 PERSONAL HISTORY OF OTHER VENOUS THROMBO 09/02/2017 KAREN DALEY, PAIGE E Ot F32.9 MAJOR DEPRESSIVE DISORDER, SINGLE EPISOD 09/02/2017 PAIGE JONES MD E Ot K21.9 GASTRO-ESOPHAGEAL REFLUX DISEASE WITHOUT 09/02/2017 PAGIE JONES MD E Ot K59.00 CONSTIPATION, UNSPECIFIED 09/02/2017 PAIGE JONES MD E Ot N32.81 OVERACTIVE BLADDER 09/02/2017 PAIGE JONES MD E Ot S00.12XD CONTUSION OF LEFT EYELID AND PERIOCULAR 09/02/2017 PAIGE JONES MD E Ot S00.83XD CONTUSION OF OTHER PART OF HEAD, SUBSEQU 09/02/2017 PAIGE JONES MD E Ot S42.292D OTH DISP FX OF UPPER END L HUMER, SUBS F 09/02/2017 PAIGE JONES MD E Ot W19.XXXD UNSPECIFIED FALL, SUBSEQUENT ENCOUNTER 09/02/2017 PAIGE JONES MD E Ot Z79.01 NEWSPAPER PEDDLER (CURRENT) USE OF ANTICOAGULANT 09/02/2017 PAIGE JONES MD E Ot Z86.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 09/02/2017 KAREN DALEY, PAIGE E Ot Z86.718 PERSONAL HISTORY OF OTHER VENOUS THROMBO 09/18/2017 PAULO DALEY, YADI Betts Ot S42.202A UNSP FRACTURE OF UPPER END OF LEFT HUMER 10/07/2017 YADI BATES MD Ot S42.202A UNSP FRACTURE OF UPPER END OF LEFT HUMER 11/27/2017 PAULO DALEY, YADI Betts Ot S42.202D UNSP [...] END OF L HUMERUS, SUBS FOR 12/08/2017 YADI BATES MD Ot W19.XXXD UNSPECIFIED FALL, SUBSEQUENT ENCOUNTER 12/09/2017 [...] Betts Ot W19.XXXD UNSPECIFIED FALL, SUBSEQUENT ENCOUNTER 05/30/2018 MUMTAZ PATEL DO Ot F32.9 MAJOR DEPRESSIVE DISORDER, SINGLE EPISOD 05/30/2018 MUMTAZ PATEL DO Ot F41.9 ANXIETY DISORDER, UNSPECIFIED 05/30/2018 MUMTAZ PATEL DO Ot H91.90 UNSPECIFIED HEARING LOSS, UNSPECIFIED EA 05/30/2018 MUMTAZ PATEL DO Ot K21.9 GASTRO-ESOPHAGEAL REFLUX DISEASE WITHOUT 05/30/2018 MUMTAZ PATEL DO Ot K57.90 DVRTCLOS OF INTEST, PART UNSP, W/O PERF 05/30/2018 MUMTAZ PATEL DO Ot S00.83XA CONTUSION OF OTHER PART OF HEAD, INITIAL 05/30/2018 MUMTAZ PATEL DO Ot S52.512A DISP FX OF LEFT RADIAL STYLOID PROCESS, 05/30/2018 MUMTAZ PATEL DO, Ot W18.30XA FALL ON SAME LEVEL, UNSPECIFIED, INITIAL 05/30/2018 MUMTAZ PATEL DO Ot Y92.[address] 05/30/2018 MUMTAZ PATEL DO Ot Z79.01 NEWSPAPER PEDDLER (CURRENT) USE OF ANTICOAGULANT 05/30/2018 MUMTAZ PATEL DO Ot Z79.899 OTHER LONG-TERM (CURRENT) DRUG THERAPY 05/30/2018 MUMTAZ PATEL DO Ot Z86.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 05/30/2018 MUMTAZ PATEL DO Ot Z86.718 PERSONAL HISTORY OF OTHER VENOUS THROMBO 05/30/2018 MUMTAZ PATEL DO Ot Z88.0 ALLERGY STATUS TO PENICILLIN 06/04/2018 MUMTAZ PATEL DO Ot F32.9 MAJOR DEPRESSIVE DISORDER, SINGLE EPISOD 06/04/2018 MUMTAZ PATEL DO Ot F41.9 ANXIETY DISORDER, UNSPECIFIED 06/04/2018 MUMTAZ PATEL DO Ot H91.90 UNSPECIFIED HEARING LOSS, UNSPECIFIED EA 06/04/2018 MUMTAZ PATEL DO Ot K21.9 GASTRO-ESOPHAGEAL REFLUX DISEASE WITHOUT 06/04/2018 MUMTAZ PATEL DO Ot K57.90 DVRTCLOS OF INTEST, PART UNSP, W/O PERF 06/04/2018 MUMTAZ PATEL DO Ot S00.83XA CONTUSION OF OTHER PART OF HEAD, INITIAL 06/04/2018 MUMTAZ PATEL DO Ot S52.512A DISP FX OF LEFT RADIAL STYLOID PROCESS, 06/04/2018 MUMTAZ PATEL DO, Ot W18.30XA FALL ON SAME LEVEL, UNSPECIFIED, INITIAL 06/04/2018 MUMTAZ PATEL DO Ot Y92.[address] 06/04/2018 MUMTAZ PATEL DO Ot Z79.01 LONG-TERM (CURRENT) USE OF ANTICOAGULANT 06/04/2018 MUMTAZ PATEL DO Ot Z79.899 OTHER NEWSPAPER PEDDLER (CURRENT) DRUG THERAPY 06/04/2018 MUMTAZ PATEL DO Ot Z86.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 06/04/2018 MUMTAZ PATEL DO Ot Z86.718 PERSONAL HISTORY OF OTHER VENOUS THROMBO 06/04/2018 PATELMUMTAZ DIAZ DO Ot Z88.0 ALLERGY STATUS TO PENICILLIN 06/07/2018 JOSEY MEJIA DO Ot F32.9 MAJOR DEPRESSIVE DISORDER, SINGLE EPISOD 06/07/2018 JOSEY MEJIA DO Ot F41.9 ANXIETY DISORDER, UNSPECIFIED 06/07/2018 JOSEY MEJIA DO Ot K21.9 GASTRO-ESOPHAGEAL REFLUX DISEASE WITHOUT 06/07/2018 JOSEY MEJIA DO Ot K44.9 DIAPHRAGMATIC HERNIA WITHOUT OBSTRUCTION 06/07/2018 JOSEY MEJIA DO Ot K57.90 DVRTCLOS OF INTEST, PART UNSP, W/O PERF 06/07/2018 JOSEY MEJIA DO Ot N32.81 OVERACTIVE BLADDER 06/07/2018 JOSEY MEJIA DO Ot S00.03XD CONTUSION OF SCALP, SUBSEQUENT ENCOUNTER 06/07/2018 JOSEY MEJIA DO Ot S22.42XD MULTIPLE FX OF RIBS, LEFT SIDE, SUBS FOR 06/07/2018 JOSEY MEJIA DO Ot S52.512D DISP FX OF L RADIAL STYLOID PRO, 7THD 06/07/2018 JOSEY MEJIA DO Ot S80.02XD CONTUSION OF LEFT KNEE, SUBSEQUENT ENCOU 06/07/2018 JOSEY MEJIA DO Ot W10.8XXD FALL (ON) (FROM) OTHER STAIRS AND STEPS, 06/07/2018 JOSEY MEJIA DO Ot Y92.[address] 06/07/2018 JOSEY MEJIA DO Ot Z79.01 LONG-TERM (CURRENT) USE OF ANTICOAGULANT 06/07/2018 JOSEY MEJIA DO Ot Z86.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 06/07/2018 JOSEY MEJIA DO Ot Z86.718 PERSONAL HISTORY OF OTHER VENOUS THROMBO 06/14/2018 JSOEY MEJIA DO Ot F32.9 MAJOR DEPRESSIVE DISORDER, SINGLE EPISOD 06/14/2018 JOSEY MEJIA DO Ot F41.9 ANXIETY DISORDER, UNSPECIFIED 06/14/2018 JOSEY MEJIA DO Ot K21.9 GASTRO-ESOPHAGEAL REFLUX DISEASE WITHOUT 06/14/2018 JOSEY MEJIA DO Ot K44.9 DIAPHRAGMATIC HERNIA WITHOUT OBSTRUCTION 06/14/2018 JOSEY MEJIA DO Ot K57.90 DVRTCLOS OF INTEST, PART UNSP, W/O PERF 06/14/2018 MEJIAZARIA VALDERRAMA JOSEY Ot N32.81 OVERACTIVE BLADDER 06/14/2018 MEJIAZARIA VALDERRAMA JOSEY Ot S00.03XD CONTUSION OF SCALP, SUBSEQUENT ENCOUNTER 06/14/2018 MEJIAZARIA VALDERRAMA JOSEY Ot S22.42XD MULTIPLE FX OF RIBS, LEFT SIDE, SUBS FOR 06/14/2018 MEJIAZARIA VALDERRAMA JOSEY Ot S52.512D DISP FX OF L RADIAL STYLOID PRO, 7THD 06/14/2018 ROBERTO VALDERRAMA JOSEY Ot S80.02XD CONTUSION OF LEFT KNEE, SUBSEQUENT ENCOU 06/14/2018 ROBERTO VALDERRAMA JOSEY Ot W10.8XXD FALL (ON) (FROM) OTHER STAIRS AND STEPS, 06/14/2018 JOSEY MEJIA DO Ot Y92.[address] 06/14/2018 ROBERTO VALDERRAMA JOSEY Ot Z79.01 LONG-TERM (CURRENT) USE OF ANTICOAGULANT 06/14/2018 GERTRUDIS MEJIA DOI Ot Z86.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 06/14/2018 ROBERTO VALDERRAMA JOSEY Ot Z86.718 PERSONAL HISTORY OF OTHER VENOUS THROMBO 06/14/2018 ROBERTO VALDERRAMA JOSEY Ot F32.9 MAJOR DEPRESSIVE DISORDER, SINGLE EPISOD 06/14/2018 ROBERTO VALDERRAMA JOSEY Ot F41.9 ANXIETY DISORDER, UNSPECIFIED 06/14/2018 ROBERTO VALDERRAMA JOSEY Ot K21.9 GASTRO-ESOPHAGEAL REFLUX DISEASE WITHOUT 06/14/2018 ROBERTO VALDERRAMA JOSEY Ot K44.9 DIAPHRAGMATIC HERNIA WITHOUT OBSTRUCTION 06/14/2018 ROBERTO VALDERRAMA JOSEY Ot K57.90 DVRTCLOS OF INTEST, PART UNSP, W/O PERF 06/14/2018 ROBERTO VALDERRAMA JOSEY Ot N32.81 OVERACTIVE BLADDER 06/14/2018 ROBERTO VALDERRAMA JOSEY Ot S00.03XD CONTUSION OF SCALP, SUBSEQUENT ENCOUNTER 06/14/2018 JOSEY MEJIA DO Ot S06.9X9D UNSP INTRACRANIAL INJURY W LOC OF UNSP D 06/14/2018 ROBERTO VALDERRAMA JOSEY Ot S22.42XD MULTIPLE FX OF RIBS, LEFT SIDE, SUBS FOR 06/14/2018 ROBERTO VALDERRAMA JOSEY Ot S52.512D DISP FX OF L RADIAL STYLOID PRO, 7THD 06/14/2018 JOSEY MEJIA DO Ot S80.02XD CONTUSION OF LEFT KNEE, SUBSEQUENT ENCOU 06/14/2018 JOSEY MEJIA DO Ot W10.8XXD FALL (ON) (FROM) OTHER STAIRS AND STEPS, 06/14/2018 JOSEY MEJIA DO Ot Y92.[address] 06/14/2018 JOSEY MEJIA DO Ot Z79.01 LONG-TERM (CURRENT) USE OF ANTICOAGULANT 06/14/2018 JOSEY MEJIA DO Ot Z86.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 06/14/2018 JOSEY MEJIA DO Ot Z86.718 PERSONAL HISTORY OF OTHER VENOUS THROMBO Procedures There is no data. Results Test [...] Automated erythrocyte mean corpuscular hemoglobin concentration measurement (mass/volume) 34 g/dL 32-36 Automated erythrocyte distribution width ratio 13.7 % 10.0- 14.5 Automated blood platelet count (count/volume) 197 10*3/uL [...] Blood monocytes automated count (number/volume) 0.4 10*3 0.0- 1.0 Automated eosinophil count 0.1 10*3/uL 0.0-0.3 Automated [...] Automated erythrocyte mean corpuscular hemoglobin concentration measurement (mass/volume) 33 g/dL 32-36 Automated erythrocyte distribution width ratio 13.8 % 10.0- 14.5 Automated blood platelet count (count/volume) 184 10*3/uL [...] Blood monocytes automated count (number/volume) 0.7 10*3 0.0- 1.0 Automated eosinophil count 0.1 10*3/uL 0.0-0.3 Automated [...] Automated erythrocyte mean corpuscular hemoglobin concentration measurement (mass/volume) 33 g/dL 32-36 Automated erythrocyte distribution width ratio 14.2 % 10.0- 14.5 Automated blood platelet count (count/volume) 193 10*3/uL [...] resistant Staphylococcus aureus (MRSA) screening culture - 05/27/18 19:00 Methicillin resistant Staphylococcus aureus (MRSA) screening culture NEG NRG Methicillin resistant Staphylococcus aureus (MRSA) screening culture - 05/27/18 19:30 Methicillin resistant Staphylococcus aureus (MRSA) screening culture NEG NRG Complete urinalysis with reflex to culture - 05/28/18 02:20 Urine color determination YELLOW NRG Urine clarity determination SLIGHTLY CLOUDY NRG Urine pH measurement by test strip 6 5-9 Specific gravity of urine by test strip 1.015 1.016-1.022 Urine protein assay by test strip, semi-quantitative [...] sediment leukocyte count by microscopy (number/high power field) [HPF] NRG Bacteria detection in urine sediment by light microscopy LARGE NRG Squamous epithelial cells detection in urine sediment by light microscopy 0-2 NRG Crystals detection in urine sediment by light microscopy NONE NRG Casts detection in urine sediment by light microscopy NONE NRG Mucus detection in urine sediment by light microscopy NEGATIVE NRG Complete urinalysis with reflex to culture YES NRG Bacterial urine culture - 05/28/18 02:20 Bacterial urine culture [id number] NRG COLONY COUNT >100,000/ML NRG FTX;REPORTABLE SUSCEPTIBILITY [facility]ED [id number] [facility] - 05/28/18 02:20 Gentamicin susceptibility test by minimum inhibitory concentration <= NRG Trimethoprim/sulfamethoxazole susceptibility test by minimum inhibitoryconcentration <= NRG Levofloxacin susceptibility test by minimum inhibitory concentration <= NRG Ampicillin susceptibility test by minimum inhibitory concentration <= NRG Cefazolin susceptibility test by minimum inhibitory concentration <= NRG Ceftriaxone susceptibility test by minimum inhibitory concentration <= NRG Ciprofloxacin susceptibility test by minimum inhibitory concentration <= NRG Meropenem susceptibility test by minimum inhibitory concentration <= NRG Nitrofurantoin susceptibility test by minimum inhibitory concentration <= NRG Amoxicillin and clavulanate potassium susc JENI <= NRG Complete blood count (CBC) with automated [...] Automated erythrocyte mean corpuscular hemoglobin concentration measurement (mass/volume) 33 g/dL 32-36 Automated erythrocyte distribution width ratio 14.2 % 10.0- 14.5 Automated blood platelet count (count/volume) 173 10*3/uL [...] Blood monocytes automated count (number/volume) 0.6 10*3 0.0- 1.0 Automated eosinophil count 0.1 10*3/uL 0.0-0.3 Automated [...] - 05/28/18 03:11 Magnesium 1.8 mg/dL 1.8-2.4 Complete blood count (CBC) with automated white blood cell (WBC) differential - 05/29/18 05:28 Blood leukocytes automated count (number/volume) 4.4 10*3/uL 4.3-11.0 Blood erythrocytes automated count (number/volume) 3.41 10*6/uL 4.35-5.85 Venous blood hemoglobin measurement (mass/volume) 11.1 g/dL 11.5-16.0 Blood hematocrit (volume fraction) 34 % 35-52 Automated erythrocyte mean corpuscular volume 101 [foz_us] 80-99 Automated erythrocyte mean corpuscular hemoglobin (mass per erythrocyte) 33 pg 25-34 Automated erythrocyte mean corpuscular hemoglobin concentration measurement (mass/volume) 32 g/dL 32-36 Automated erythrocyte distribution width ratio 14.3 % 10.0- 14.5 Automated blood platelet count (count/volume) 180 10*3/uL 130-400 Automated blood platelet mean volume measurement 9.7 [foz_us] 7.4-10.4 Automated blood neutrophils/100 leukocytes 61 % 42-75 Automated blood lymphocytes/100 leukocytes 22 % 12-44 Blood monocytes/100 leukocytes 14 % 0-12 Automated blood eosinophils/100 leukocytes 3 % 0-10 Automated blood basophils/100 leukocytes 1 % 0-10 Blood neutrophils automated count (number/volume) 2.7 10*3 1.8-7.8 Blood lymphocytes automated count (number/volume) 1.0 10*3 1.0-4.0 Blood monocytes automated count (number/volume) 0.6 10*3 0.0- 1.0 Automated eosinophil count 0.1 10*3/uL 0.0-0.3 Automated blood basophil count (count/volume) 0.0 10*3/uL 0.0-0.1 PT panel in platelet poor plasma by coagulation assay - 05/29/18 05:28 Prothrombin time (PT) in platelet poor plasma by coagulation assay 20.5 s 12.2-14.7 INR in platelet poor plasma or blood by coagulation assay 1.8 0.8-1.4 Whole blood basic metabolic panel - 05/29/18 05:28 Serum or plasma sodium measurement (moles/volume) 139 mmol/L 135-145 Serum or plasma potassium measurement (moles/volume) 4.1 mmol/L 3.6-5.0 Serum or plasma chloride measurement (moles/volume) 106 mmol/L 98-107 Carbon dioxide 24 mmol/L 21-32 Serum or plasma anion gap determination (moles/volume) 9 mmol/L 5-14 Serum or plasma urea nitrogen measurement (mass/volume) 19 mg/dL 7-18 Serum or plasma creatinine measurement (mass/volume) 1.11 mg/dL 0.60-1.30 Serum or plasma urea nitrogen/creatinine mass ratio 17 NRG Serum or plasma creatinine measurement with calculation of estimated glomerular filtration rate 47 NRG Serum or plasma glucose measurement (mass/volume) 97 mg/dL 70-105 Serum or plasma calcium measurement (mass/volume) 8.5 mg/dL 8.5-10.1 Serum or plasma phosphate measurement (mass/volume) - 05/29/18 05:28 Serum or plasma phosphate measurement (mass/volume) 3.2 mg/dL 2.3-4.7 Magnesium - 05/29/18 05:28 Magnesium 1.9 mg/dL 1.8-2.4 Complete blood count (CBC) with automated white blood cell (WBC) differential - 05/30/18 05:25 Blood leukocytes automated count (number/volume) 5.6 10*3/uL 4.3-11.0 Blood erythrocytes automated count (number/volume) 3.26 10*6/uL 4.35-5.85 Venous blood hemoglobin measurement (mass/volume) 10.6 g/dL 11.5-16.0 Blood hematocrit (volume fraction) 33 % 35-52 Automated erythrocyte mean corpuscular volume 100 [foz_us] 80-99 Automated erythrocyte mean corpuscular hemoglobin (mass per erythrocyte) 33 pg 25-34 Automated erythrocyte mean corpuscular hemoglobin concentration measurement (mass/volume) 32 g/dL 32-36 Automated erythrocyte distribution width ratio 13.9 % 10.0- 14.5 Automated blood platelet count (count/volume) 170 10*3/uL 130-400 Automated blood platelet mean volume measurement 10.2 [foz_us] 7.4-10.4 Automated blood neutrophils/100 leukocytes 61 % 42-75 Automated blood lymphocytes/100 leukocytes 23 % 12-44 Blood monocytes/100 leukocytes 14 % 0-12 Automated blood eosinophils/100 leukocytes 2 % 0-10 Automated blood basophils/100 leukocytes 0 % 0-10 Blood neutrophils automated count (number/volume) 3.4 10*3 1.8-7.8 Blood lymphocytes automated count (number/volume) 1.3 10*3 1.0-4.0 Blood monocytes automated count (number/volume) 0.8 10*3 0.0- 1.0 Automated eosinophil count 0.1 10*3/uL 0.0-0.3 Automated blood basophil count (count/volume) 0.0 10*3/uL 0.0-0.1 Whole blood basic metabolic panel - 05/30/18 05:25 Serum or plasma sodium measurement (moles/volume) 137 mmol/L 135-145 Serum or plasma potassium measurement (moles/volume) 4.0 mmol/L 3.6-5.0 Serum or plasma chloride measurement (moles/volume) 104 mmol/L 98-107 Carbon dioxide 24 mmol/L 21-32 Serum or plasma anion gap determination (moles/volume) 9 mmol/L 5-14 Serum or plasma urea nitrogen measurement (mass/volume) 18 mg/dL 7-18 Serum or plasma creatinine measurement (mass/volume) 0.99 mg/dL 0.60-1.30 Serum or plasma urea nitrogen/creatinine mass ratio 18 NRG Serum or plasma creatinine measurement with calculation of estimated glomerular filtration rate 54 NRG Serum or plasma glucose measurement (mass/volume) 103 mg/dL 70-105 Serum or plasma calcium measurement (mass/volume) 8.5 mg/dL 8.5-10.1 Serum or plasma phosphate measurement (mass/volume) - 05/30/18 05:25 Serum or plasma phosphate measurement (mass/volume) 3.1 mg/dL 2.3-4.7 Magnesium - 05/30/18 05:25 Magnesium 1.7 mg/dL 1.8-2.4 Complete blood count (CBC) with automated white blood cell (WBC) differential - 06/01/18 04:50 Blood leukocytes automated count (number/volume) 4.3 10*3/uL 4.3-11.0 Blood erythrocytes automated count (number/volume) 3.26 10*6/uL 4.35-5.85 Venous blood hemoglobin measurement (mass/volume) 10.6 g/dL 11.5-16.0 Blood hematocrit (volume fraction) 33 % 35-52 Automated erythrocyte mean corpuscular volume 100 [foz_us] 80-99 Automated erythrocyte mean corpuscular hemoglobin (mass per erythrocyte) 33 pg 25-34 Automated erythrocyte mean corpuscular hemoglobin concentration measurement (mass/volume) 32 g/dL 32-36 Automated erythrocyte distribution width ratio 13.6 % 10.0- 14.5 Automated blood platelet count (count/volume) 186 10*3/uL 130-400 Automated blood platelet mean volume measurement 9.9 [foz_us] 7.4-10.4 Automated blood neutrophils/100 leukocytes 56 % 42-75 Automated blood lymphocytes/100 leukocytes 29 % 12-44 Blood monocytes/100 leukocytes 11 % 0-12 Automated blood eosinophils/100 leukocytes 5 % 0-10 Automated blood basophils/100 leukocytes 1 % 0-10 Blood neutrophils automated count (number/volume) 2.4 10*3 1.8-7.8 Blood lymphocytes automated count (number/volume) 1.2 10*3 1.0-4.0 Blood monocytes automated count (number/volume) 0.5 10*3 0.0- 1.0 Automated eosinophil count 0.2 10*3/uL 0.0-0.3 Automated blood basophil count (count/volume) 0.0 10*3/uL 0.0-0.1 Comprehensive metabolic panel - 06/01/18 04:50 Serum or plasma sodium measurement (moles/volume) 137 mmol/L 135-145 Serum or plasma potassium measurement (moles/volume) 4.3 mmol/L 3.6-5.0 Serum or plasma chloride measurement (moles/volume) 105 mmol/L 98-107 Carbon dioxide 25 mmol/L 21-32 Serum or plasma anion gap determination (moles/volume) 7 mmol/L 5-14 Serum or plasma urea nitrogen measurement (mass/volume) 24 mg/dL 7-18 Serum or plasma creatinine measurement (mass/volume) 1.05 mg/dL 0.60-1.30 Serum or plasma urea nitrogen/creatinine mass ratio 23 NRG Serum or plasma creatinine measurement with calculation of estimated glomerular filtration rate 50 NRG Serum or plasma glucose measurement (mass/volume) 105 mg/dL 70-105 Serum or plasma calcium measurement (mass/volume) 8.9 mg/dL 8.5-10.1 Serum or plasma total bilirubin measurement (mass/volume) 1.3 mg/dL 0.1-1.0 Serum or plasma alkaline phosphatase measurement (enzymatic activity/volume) 70 U/L 40-136 Serum or plasma aspartate aminotransferase measurement (enzymatic activity/volume) 17 U/L 5-34 Serum or plasma alanine aminotransferase measurement (enzymatic activity/volume) 11 U/L 0-55 Serum or plasma protein measurement (mass/volume) 6.2 g/dL 6.4-8.2 Serum or plasma albumin measurement (mass/volume) 3.4 g/dL 3.2-4.5 CALCIUM CORRECTED 9.4 mg/dL 8.5-10.1 PT panel in platelet poor plasma by coagulation assay - 06/01/18 04:50 Prothrombin time (PT) in platelet poor plasma by coagulation assay 17.3 s 12.2-14.7 INR in platelet poor plasma or blood by coagulation assay 1.4 0.8-1.4 PT panel in platelet poor plasma by coagulation assay - 06/02/18 07:15 Prothrombin time (PT) in platelet poor plasma by coagulation assay 18.3 s 12.2-14.7 INR in platelet poor plasma or blood by coagulation assay 1.5 0.8-1.4 PT panel in platelet poor plasma by coagulation assay - 06/03/18 08:45 Prothrombin time (PT) in platelet poor plasma by coagulation assay 19.0 s 12.2-14.7 INR in platelet poor plasma or blood by coagulation assay 1.6 0.8-1.4 PT panel in platelet poor plasma by coagulation assay - 06/05/18 04:25 Prothrombin time (PT) in platelet poor plasma by coagulation assay 21.7 s 12.2-14.7 INR in platelet poor plasma or blood by coagulation assay 1.8 0.8-1.4 PT panel in platelet poor plasma by coagulation assay - 06/07/18 04:45 Prothrombin time (PT) in platelet poor plasma by coagulation assay 25.3 s 12.2-14.7 INR in platelet poor plasma or blood by coagulation assay 2.2 0.8-1.4 Complete blood count (CBC) with automated white blood cell (WBC) differential - 06/09/18 05:25 Blood leukocytes automated count (number/volume) 3.9 10*3/uL 4.3-11.0 Blood erythrocytes automated count (number/volume) 3.33 10*6/uL 4.35-5.85 Venous blood hemoglobin measurement (mass/volume) 10.7 g/dL 11.5-16.0 Blood hematocrit (volume fraction) 33 % 35-52 Automated erythrocyte mean corpuscular volume 100 [foz_us] 80-99 Automated erythrocyte mean corpuscular hemoglobin (mass per erythrocyte) 32 pg 25-34 Automated erythrocyte mean corpuscular hemoglobin concentration measurement (mass/volume) 32 g/dL 32-36 Automated erythrocyte distribution width ratio 13.7 % 10.0- 14.5 Automated blood platelet count (count/volume) 227 10*3/uL 130-400 Automated blood platelet mean volume measurement 9.4 [foz_us] 7.4-10.4 Automated blood neutrophils/100 leukocytes 52 % 42-75 Automated blood lymphocytes/100 leukocytes 30 % 12-44 Blood monocytes/100 leukocytes 10 % 0-12 Automated blood eosinophils/100 leukocytes 7 % 0-10 Automated blood basophils/100 leukocytes 1 % 0-10 Blood neutrophils automated count (number/volume) 2.0 10*3 1.8-7.8 Blood lymphocytes automated count (number/volume) 1.2 10*3 1.0-4.0 Blood monocytes automated count (number/volume) 0.4 10*3 0.0- 1.0 Automated eosinophil count 0.3 10*3/uL 0.0-0.3 Automated blood basophil count (count/volume) 0.0 10*3/uL 0.0-0.1 PT panel in platelet poor plasma by coagulation assay - 06/09/18 05:25 Prothrombin time (PT) in platelet poor plasma by coagulation assay 31.2 s 12.2-14.7 INR in platelet poor plasma or blood by coagulation assay 2.8 0.8-1.4 Comprehensive metabolic panel - 06/09/18 05:25 Serum or plasma sodium measurement (moles/volume) 142 mmol/L 135-145 Serum or plasma potassium measurement (moles/volume) 4.1 mmol/L 3.6-5.0 Serum or plasma chloride measurement (moles/volume) 110 mmol/L 98-107 Carbon dioxide 22 mmol/L 21-32 Serum or plasma anion gap determination (moles/volume) 10 mmol/L 5-14 Serum or plasma urea nitrogen measurement (mass/volume) 18 mg/dL 7-18 Serum or plasma creatinine measurement (mass/volume) 0.92 mg/dL 0.60-1.30 Serum or plasma urea nitrogen/creatinine mass ratio 20 NRG Serum or plasma creatinine measurement with calculation of estimated glomerular filtration rate 59 NRG Serum or plasma glucose measurement (mass/volume) 96 mg/dL 70-105 Serum or plasma calcium measurement (mass/volume) 8.5 mg/dL 8.5-10.1 Serum or plasma total bilirubin measurement (mass/volume) 0.6 mg/dL 0.1-1.0 Serum or plasma alkaline phosphatase measurement (enzymatic activity/volume) 78 U/L 40-136 Serum or plasma aspartate aminotransferase measurement (enzymatic activity/volume) 23 U/L 5-34 Serum or plasma alanine aminotransferase measurement (enzymatic activity/volume) 17 U/L 0-55 Serum or plasma protein measurement (mass/volume) 6.1 g/dL 6.4-8.2 Serum or plasma albumin measurement (mass/volume) 3.3 g/dL 3.2-4.5 CALCIUM CORRECTED 9.1 mg/dL 8.5-10.1 PT panel in platelet poor plasma by coagulation assay - 06/10/18 05:35 Prothrombin time (PT) in platelet poor plasma by coagulation assay 33.9 s 12.2-14.7 INR in platelet poor plasma or blood by coagulation assay 3.2 0.8-1.4 PT panel in platelet poor plasma by coagulation assay - 06/12/18 07:30 Prothrombin time (PT) in platelet poor plasma by coagulation assay 31.5 s 12.2-14.7 INR in platelet poor plasma or blood by coagulation assay 2.9 0.8-1.4 Encounters ACCT No. Visit Date/Time Discharge Status Pt. Type Provider Facility Loc./Unit Complaint [id number] 05/30/2018 12:10:00 06/14/2018 15:09:00 DIS Inpatient JOSEY MEJIA DO Via [facility] IRF DEBILITY [id number] 05/27/2018 17:48:00 05/30/2018 11:55:00 DIS Inpatient MUMTAZ PATEL DO Alpesh [facility] 4TH CLOSED HEAD INJURY, NAUSEA, ANTICOAGULATED RADIAL [id number] 01/07/2018 10:36:00 01/07/2018 11:19:00 DIS Outpatient YADI BATES MD [facility] REHAB L HUMERAL HEAD FX [id number] 12/10/2017 11:27:00 12/14/2017 13:24:00 DIS Outpatient YADI BATES MD [facility] REHAB L HUMERAL HEAD FX [id number] 09/17/2017 14:57:00 09/17/2017 23:59:59 CLS Outpatient YADI BATES MD [facility] RAD L HUMERUS FRACTURE [id number] 08/19/2017 12:29:00 09/02/2017 15:09:00 DIS Inpatient PAIGE JONES MD [facility] IRF CLOSED HEAD INJURY [id number] 08/17/2017 16:07:00 08/19/2017 12:30:00 DIS Inpatient YADI BATES MD [facility] 4TH CLOSED HEAD INJURY, L HUMERUS FRACTURE [id number] 10/17/2015 15:09:00 10/17/2015 23:59:59 CLS Outpatient YADI BATES MD [facility] RAD GROIN [id number] 07/18/2015 11:04:00 07/18/2015 11:56:00 DIS Emergency ESTEBAN JAMAAL VALDERRAMAMel Newell [facility] ER FALL/LEFT SIDE PAIN [id number] 10/04/2014 12:11:00 10/04/2014 16:32:00 DIS Emergency SHREYAS THEODORE APRN [facility] ER N/V SOA [id number] 01/30/2011 14:12:00 Document Registration [id number] 12/04/2009 07:58:00 Document Registration
--- NOTE | 2018-10-22 12:15 | Diagnostic Imaging Report ---
PROCEDURE: CT head and CT cervical spine without contrast. TECHNIQUE: Multiple contiguous axial images were obtained through the brain and cervical spine without the use of intravenous contrast. Sagittal and coronal reformations through the cervical spine were then performed. Auto Exposure Controls were utilized during the CT exam to meet ALARA standards for radiation dose reduction. INDICATION: Fall. Forehead bruise and bump. COMPARISON: CT head on 05/28/2018. FINDINGS: CT head: No large acute territorial ischemia, mass, or hemorrhage. Chronic microvascular disease is seen in the periventricular and subcortical white matter. The ventricles and cortical sulci are prominent, consistent with generalized volume loss. The basilar cisterns are patent and unremarkable. The calvarium is intact. Scalp hematoma is noted in the midline of the forehead. The visualized paranasal sinuses are clear. CT cervical spine: No acute fracture or dislocation is seen in the cervical spine. No focal osseous lesions. Vertebral body heights are well-maintained. The craniocervical junction is well-maintained. Mild to moderate degenerative changes are seen in the cervical spine with disc osteophyte complexes and uncovertebral arthropathy. Soft tissues of the neck are unremarkable. IMPRESSION: 1. No hemorrhage or focal intra-axial mass. No CT evidence of large acute territorial ischemia. Scalp hematoma overlying the forehead in the midline. 2. No acute fracture or dislocation in the cervical spine. Dictated by: Dictated on workstation # [id number]
[2018-10-22 12:55] VITALS: BP 151/80
== END 2018-10-22 12:55 | disposition home or self-care (01) ==
LOC: EDUNIT# 11:12 → ER 11:13
DX: S09.90XA Unspecified injury of head, initial encounter (principal); S01.81XA Laceration without foreign body of other part of head, initial encounter; K21.9 Gastro-esophageal reflux disease without esophagitis; F41.9 Anxiety disorder, unspecified; F32.9 Major depressive disorder, single episode, unspecified; R40.2142 Coma scale, eyes open, spontaneous, at arrival to emergency department; R40.2252 Coma scale, best verbal response, oriented, at arrival to emergency department; R40.2362 Coma scale, best motor response, obeys commands, at arrival to emergency department; Z87.19 Personal history of other diseases of the digestive system; Z86.711 Personal history of pulmonary embolism; Z86.718 Personal history of other venous thrombosis and embolism; Z88.0 Allergy status to penicillin; Z79.01 Long term (current) use of anticoagulants; Z90.49 Acquired absence of other specified parts of digestive tract; Z82.49 Family history of ischemic heart disease and other diseases of the circulatory system; W01.198A Fall on same level from slipping, tripping and stumbling with subsequent striking against other object, initial encounter; Y92.009 Unspecified place in unspecified non-institutional (private) residence as the place of occurrence of the external cause
CPT/HCPCS: 70450; 72125

== ENCOUNTER 2018-10-23 18:09 | Emergency (ER) | payer MEDICARE ==
[~2018-10-23] VITALS: Ht 157.5 cm; Wt 101.6 kg
--- OUTSIDE RECORDS SUMMARY | 2018-10-23 18:16 | XMS REPORT | Continuity of Care Document ---
Author Organization Unknown Address Unknown Phone Unavailable Allergies Active Description Code Type Severity Reaction Onset Reported/Identified Relationship to Patient Clinical Status Yes Penicillins [id number] Drug Allergy Mild N/A 08/17/2017 Yes Penicillins [id number] Drug Allergy Mild Pt has received 05/28/2018 [...] OTHER EXTERNAL CAUSE STATUS 08/17/2017 PAULO DALEY, AYDI Betts Ot S39.93XA UNSPECIFIED INJURY OF PELVIS, [...] E 08/19/2017 YADI BATES MD Ot Z79.01 [facility] (CURRENT) USE OF ANTICOAGULANT 08/19/2017 YADI BATES MD Ot Z79.899 OTHER COMPRESSOR STATION ENGINEER (CURRENT) DRUG THERAPY 08/19/2017 YADI BATES MD [...] E 08/19/2017 YADI BATES MD Ot Z79.01 COMPRESSOR STATION ENGINEER (CURRENT) USE OF ANTICOAGULANT 08/19/2017 YADI BATES MD Ot Z79.899 OTHER COMPRESSOR STATION ENGINEER (CURRENT) DRUG THERAPY 08/19/2017 PAULO DALEY, YADI [...] ENCOUNTER 08/21/2017 PAIGE JONES MD Ot Z79.01 COMPRESSOR STATION ENGINEER (CURRENT) USE OF ANTICOAGULANT 08/21/2017 PAIGE JONES [...] ENCOUNTER 08/21/2017 PAIGE JONES MD Ot Z79.01 COMPRESSOR STATION ENGINEER (CURRENT) USE OF ANTICOAGULANT 08/21/2017 PAIGE JONES [...] ENCOUNTER 08/28/2017 PAIGE JONES MD Ot Z79.01 [facility] (CURRENT) USE OF ANTICOAGULANT 08/28/2017 PAIGE JONES [...] ENCOUNTER 09/02/2017 PAIGE JONES MD Ot Z79.01 COMPRESSOR STATION ENGINEER (CURRENT) USE OF ANTICOAGULANT 09/02/2017 PAIGE JONES MD Ot Z86.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 09/02/2017 KAREN DALEY, PAIGE E Ot Z86.718 PERSONAL HISTORY OF OTHER VENOUS THROMBO 09/02/2017 KAREN DALEY, PAIGE E Ot F32.9 MAJOR DEPRESSIVE DISORDER, SINGLE EPISOD 09/02/2017 PAIGE JONES MD E Ot K21.9 GASTRO-ESOPHAGEAL REFLUX DISEASE WITHOUT 09/02/2017 PAIGE JONES MD E Ot K59.00 CONSTIPATION, UNSPECIFIED [...] 09/02/2017 PAIGE JONES MD E Ot Z79.01 COMPRESSOR STATION ENGINEER (CURRENT) USE OF ANTICOAGULANT 09/02/2017 PAIGE JONES [...] PLACE 05/30/2018 MUMTAZ PATEL DO Ot Z79.01 COMPRESSOR STATION ENGINEER (CURRENT) USE OF ANTICOAGULANT 05/30/2018 MUMTAZ PATEL DO Ot Z79.899 OTHER [facility] (CURRENT) DRUG THERAPY 05/30/2018 MUMTAZ PATEL DO [...] PLACE 06/04/2018 MUMTAZ PATEL DO Ot Z79.01 [facility] (CURRENT) USE OF ANTICOAGULANT 06/04/2018 MUMTAZ PATEL DO Ot Z79.899 OTHER COMPRESSOR STATION ENGINEER (CURRENT) DRUG THERAPY 06/04/2018 MUMTAZ PATEL DO [...] OF L RADIAL STYLOID PRO, 7THD 06/07/2018 JOSYE MEJIA DO Ot S80.02XD CONTUSION OF LEFT KNEE, SUBSEQUENT ENCOU 06/07/2018 JOSEY MEJIA DO Ot W10.8XXD FALL (ON) (FROM) OTHER STAIRS AND STEPS, 06/07/2018 JOSEY MEJIA DO Ot Y92.[address] 06/07/2018 JOSEY MEJIA DO Ot Z79.01 [facility] (CURRENT) USE OF ANTICOAGULANT 06/07/2018 JOSEY MEJIA DO Ot Z86.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 06/07/2018 JOSEY MEJIA DO Ot Z86.718 PERSONAL HISTORY OF OTHER VENOUS THROMBO 06/14/2018 JOSEY MEJIA DO Ot F32.9 MAJOR DEPRESSIVE DISORDER, SINGLE EPISOD 06/14/2018 JOSEY MEJIA DO Ot F41.9 ANXIETY DISORDER, UNSPECIFIED 06/14/2018 JOSEY MEJIA DO Ot K21.9 GASTRO-ESOPHAGEAL REFLUX DISEASE WITHOUT 06/14/2018 JOSEY MEJIA DO Ot K44.9 DIAPHRAGMATIC HERNIA WITHOUT OBSTRUCTION 06/14/2018 JOSEY MEJIA DO Ot K57.90 DVRTCLOS OF INTEST, PART UNSP, W/O PERF 06/14/2018 MEJIAZARIA VALDERRAMA JOSEY Ot N32.81 OVERACTIVE BLADDER 06/14/2018 MEJIAZARIA VALDERRAAM JOSEY Ot S00.03XD CONTUSION OF SCALP, SUBSEQUENT [...] PLACE 06/14/2018 ROBERTO VALDERRAMA JOSEY Ot Z79.01 [facility] (CURRENT) USE OF ANTICOAGULANT 06/14/2018 GERTRUDIS MEJIA [...] PLACE 06/14/2018 JOSEY MEJIA DO Ot Z79.01 [facility] (CURRENT) USE OF ANTICOAGULANT 06/14/2018 JOSEY MEJIA [...] culture - 05/28/18 02:20 Bacterial urine culture [id number] NRG COLONY COUNT >100,000/ML NRG FTX;REPORTABLE SUSCEPTIBILITY [id number] [facility] - 05/28/18 02:20 Gentamicin [...] Status Pt. Type Provider Facility Loc./Unit Complaint [id number] 10/22/2018 11:13:00 10/22/2018 12:55:00 DIS Emergency EDI FRAIRE [facility] ER FALL [id number] 05/30/2018 12:10:00 06/14/2018 15:09:00 DIS Inpatient JOSEY MEJIA DO [facility] IRF DEBILITY [id number] 05/27/2018 17:48:00 05/30/2018 11:55:00 DIS Inpatient MUMTAZ PATEL DO [facility] 4TH CLOSED HEAD INJURY, NAUSEA, ANTICOAGULATED RADIAL [id number] 01/07/2018 10:36:00 01/07/2018 11:19:00 DIS Outpatient YADI BATES MD [facility] REHAB L HUMERAL HEAD FX [id number] 12/10/2017 11:27:00 12/14/2017 13:24:00 DIS Outpatient YADI BATES MD [facility] REHAB L HUMERAL HEAD FX [id number] 09/17/2017 14:57:00 09/17/2017 23:59:59 CLS Outpatient YADI BATES MD [facility] RAD L HUMERUS FRACTURE [id number] 08/19/2017 12:29:00 09/02/2017 15:09:00 DIS Inpatient PAIGE JONES MD [facility] IRF CLOSED HEAD INJURY [id number] 08/17/2017 16:07:00 08/19/2017 12:30:00 DIS Inpatient YADI BATES MD [facility] 4TH CLOSED HEAD INJURY, L HUMERUS FRACTURE [id number] 10/17/2015 15:09:00 10/17/2015 23:59:59 CLS Outpatient YADI BATES MD [facility] RAD GROIN [id number] 07/18/2015 11:04:00 07/18/2015 11:56:00 DIS Emergency ANDREW ORELLANA DO [facility] ER FALL/LEFT SIDE PAIN [id number] 10/04/2014 12:11:00 10/04/2014 16:32:00 DIS Emergency SHREYAS THEODORE APRN [facility] ER N/V SOA [id number] 01/30/2011 14:12:00 Document Registration [id number] 12/04/2009 07:58:00 Document Registration
--- NOTE | 2018-10-23 18:53 | NUR ---
Report given to PASCUAL Hall
[2018-10-23 19:05] LABS: BASOPHILS % (AUTO) 0 % (0-10); EOSINOPHILS # (AUTO) 0.2 10^3/uL (0.0-0.3); EOSINOPHILS % (AUTO) 4 % (0-10); HEMATOCRIT 38 % (35-52); HEMOGLOBIN 12.4 G/DL (11.5-16.0); LYMPHOCYTES # (AUTO) 1.1 X 10^3 (1.0-4.0); LYMPHOCYTES % (AUTO) 24 % (12-44); MEAN CORPUSCULAR HEMOGLOBIN 32 PG (25-34); MEAN CORPUSCULAR HGB CONC 33 G/DL (32-36); MEAN CORPUSCULAR VOLUME 98 FL (80-99); MEAN PLATELET VOLUME 9.8 FL (7.4-10.4); MONOCYTES # (AUTO) 0.5 X 10^3 (0.0-1.0); MONOCYTES % (AUTO) 12 % (0-12); NEUTROPHILS # (AUTO) 2.8 X 10^3 (1.8-7.8); NEUTROPHILS % (AUTO) 61 % (42-75); PLATELET COUNT 200 10^3/uL (130-400); WHITE BLOOD COUNT 4.6 10^3/uL (4.3-11.0)
[2018-10-23 19:11] LABS: INR 4.6 (0.8-1.4)
[2018-10-23 19:14] LABS: PROTHROMBIN TIME PATIENT 45.5 SEC (12.2-14.7)
--- NOTE | 2018-10-23 19:39 | ED Integumentary General ---
General Chief Complaint: Skin/Wound Problems Stated Complaint: SEEN YESTERDAY FOR FALL,FOREHEAD BLEEDING AGAIN Nursing Triage Note: Ambulatory to 6. Pt reports having a fall yesterday and being treated by dEi. Pt has large hematoma to R eye and forehead. Pt is concerned of bleeding and being on blood thinners. No bleeding noted at time of assessment. Source: patient, family (niece) Exam Limitations: no limitations History of Present Illness Date Seen by Provider: Oct 23, 2018 Time Seen by Provider: 19:13 Allergies and Home Medications Allergies Coded Allergies: Penicillins (Verified Allergy, Mild, Pt has received Ceftriaxone in the past w/o issue, 05/28/18) Home Medications Cholecalciferol (Vitamin D3) 2,000 Unit Capsule, 2,000 UNIT PO DAILY, (Reported) Citalopram Hydrobromide 20 Mg Tablet, 20 MG PO DAILY, (Reported) Oxybutynin Chloride 10 Mg Tab.er.24, 10 MG PO DAILY, (Reported) Warfarin Sodium 3 Mg Tablet, 6 MG PO DAILY@1800 Prescribed by: JOSEY MEJIA on 06/14/18 0820 Past Xnljayf-Cxyksk-Hejeev Hx Patient Social History Alcohol Use: Denies Use Recreational Drug Use: No Smoking Status: Never a Smoker 2nd Hand Smoke Exposure: No Recent Foreign Travel: No Contact w/Someone Who Travel: No Recent Infectious Disease Expo: No Recent Hopitalizations: Yes (MAY 2018 FOR A FALL) Physical Abuse: No Sexual Abuse: No Immunizations Up To Date Tetanus Booster (TDap): Less than 5yrs PED Vaccines UTD: Yes Seasonal Allergies Seasonal Allergies: No Past Medical History Surgeries: Yes (GREEN FIELD FILTER, LTK, RTK, L FOREARM METAL PLATE) Abdominal, Appendectomy, Eye Surgery, Orthopedic Respiratory: Yes Pulmonary Embolism Cardiac: Yes (irina filter placement) Deep Vein Thrombosis Neurological: No Genitourinary: Yes Bladder Infection Gastrointestinal: Yes Gastroesophageal Reflux, Diverticulosis, Hiatal Hernia Musculoskeletal: Yes Arthritis, Fractures Endocrine: No HEENT: Yes Cataract Loss of Vision: Denies Hearing Impairment: Hard of Hearing Cancer: No Psychosocial: Yes Anxiety, Depression Integumentary: No Blood Disorders: Yes (DVT/PE) Family Medical History Cardiovascular disease G8 BROTHER Hypertension G8 BROTHER Myocardial infarction 19 MOTHER Respiratory disorder 19 FATHER G8 BROTHER No Pertinent Family Hx Physical Exam Vital Signs Vital Signs - First Documented 10/23/18 18:13 Temp 100.3 Pulse 75 Resp 16 B/P (MAP) 148/87 (107) Pulse Ox 98 O2 Delivery Room Air Capillary Refill : Less Than 3 Seconds Progress/Results/Core Measures Results/Orders Lab Results Laboratory Tests Test 10/23/18 18:30 Range/Units White Blood Count 4.6 4.3-11.0 10^3/uL Red Blood Count 3.91 L 4.35-5.85 10^6/uL Hemoglobin 12.4 11.5-16.0 G/DL Hematocrit 38 35-52 % Mean Corpuscular Volume 98 80-99 FL Mean Corpuscular Hemoglobin 32 25-34 PG Mean Corpuscular Hemoglobin Concent 33 32-36 G/DL Red Cell Distribution Width 15.0 H 10.0-14.5 % Platelet Count 200 130-400 10^3/uL Mean Platelet Volume 9.8 7.4-10.4 FL Neutrophils (%) (Auto) 61 42-75 % Lymphocytes (%) (Auto) 24 12-44 % Monocytes (%) (Auto) 12 0-12 % Eosinophils (%) (Auto) 4 0-10 % Basophils (%) (Auto) 0 0-10 % Neutrophils # (Auto) 2.8 1.8-7.8 X 10^3 Lymphocytes # (Auto) 1.1 1.0-4.0 X 10^3 Monocytes # (Auto) 0.5 0.0-1.0 X 10^3 Eosinophils # (Auto) 0.2 0.0-0.3 10^3/uL Basophils # (Auto) 0.0 0.0-0.1 10^3/uL Prothrombin Time 45.5 *H 12.2-14.7 SEC INR Comment 4.6 H 0.8-1.4 Activated Partial Thromboplast Time 48 H 24-35 SEC My Orders Orders - EDI SILVA Cbc With Automated Diff (10/23/18 19:00) Protime With Inr (10/23/18 19:00) Partial Thromboplastin Time (10/23/18 19:00) Vital Signs/I&O 10/23/18 18:13 Temp 100.3 Pulse 75 Resp 16 B/P (MAP) 148/87 (107) Pulse Ox 98 O2 Delivery Room Air Blood Pressure Mean: 107 Departure Impression Primary Impression: Coumadin toxicity Additional Impressions: Traumatic hematoma of forehead Laceration of forehead Disposition: 01 HOME, SELF-CARE Condition: Improved Departure-Patient Inst. Decision time for Depature: 20:03 Referrals: YADI BATES MD (PCP/Family) Primary Care Physician Patient Instructions: Warfarin Add. Discharge Instructions: All discharge instructions reviewed with patient and/or family. Voiced understanding. Hold Coumadin until Thursday evening. Have labs drawn Thursday. Follow-up with Dr. Bates on Thursday for recheck, call first thing Thursday for appointment time. Return to the emergency department for worsened swelling, difficulty swallowing, difficulty breathing, shortness of air, chest pain, redness, drainage, increased bleeding, or any other concerns. EDI SILVA Oct 23, 2018 19:39
[2018-10-23 20:10] VITALS: BP 148/84
== END 2018-10-23 20:15 | disposition home or self-care (01) ==
LOC: EDUNIT# 18:09 → ER 18:11
DX: S01.81XA Laceration without foreign body of other part of head, initial encounter (principal); T45.511A Poisoning by anticoagulants, accidental (unintentional), initial encounter; K21.9 Gastro-esophageal reflux disease without esophagitis; F41.9 Anxiety disorder, unspecified; F32.9 Major depressive disorder, single episode, unspecified; Z87.19 Personal history of other diseases of the digestive system; Z86.718 Personal history of other venous thrombosis and embolism; Z86.711 Personal history of pulmonary embolism; Z88.0 Allergy status to penicillin; Z79.01 Long term (current) use of anticoagulants; Z90.49 Acquired absence of other specified parts of digestive tract; Z82.49 Family history of ischemic heart disease and other diseases of the circulatory system; W19.XXXA Unspecified fall, initial encounter
CPT/HCPCS: 36415; 85025; 85610; 85730

== ENCOUNTER 2018-11-07 21:27 | Emergency (ER) | payer MEDICARE ==
[~2018-11-07] VITALS: Ht 157.5 cm; Wt 101.7 kg
--- NOTE | 2018-11-07 22:12 | NUR ---
C COLLAR REMOVED BY DR. TIERNEY.
[2018-11-07 22:38] LABS: BASOPHILS % (AUTO) 0 % (0-10); EOSINOPHILS % (AUTO) 0 % (0-10); HEMATOCRIT 33 % (35-52); HEMOGLOBIN 10.9 G/DL (11.5-16.0); LYMPHOCYTES # (AUTO) 0.5 X 10^3 (1.0-4.0); LYMPHOCYTES % (AUTO) 4 % (12-44); MEAN CORPUSCULAR HEMOGLOBIN 32 PG (25-34); MEAN CORPUSCULAR HGB CONC 33 G/DL (32-36); MEAN CORPUSCULAR VOLUME 97 FL (80-99); MEAN PLATELET VOLUME 10.2 FL (7.4-10.4); MONOCYTES # (AUTO) 1.2 X 10^3 (0.0-1.0); MONOCYTES % (AUTO) 9 % (0-12); NEUTROPHILS # (AUTO) 11.1 X 10^3 (1.8-7.8); NEUTROPHILS % (AUTO) 87 % (42-75); PLATELET COUNT 83 10^3/uL (130-400); RED CELL DISTRIBUTION WIDTH 14.6 % (10.0-14.5); WHITE BLOOD COUNT 12.8 10^3/uL (4.3-11.0)
--- NOTE | 2018-11-07 22:41 | ED Fall/Injury ---
General Chief Complaint: Trauma-Non Activation Stated Complaint: FALL Source: patient Exam Limitations: no limitations (LIZBET PAGE) History of Present Illness Date Seen by Provider: Nov 07, 2018 Time Seen by Provider: 22:00 Initial Comments Pt presents by EMS with a fall in her bathroom tonight. She states after sitting on the toilet for a while she stood up and just fell down. She states she did not lose consciousness but did hit her head on the floor. she was on the floor for 4 hours until her niece came and found her. She recently fell a couple weeks ago hitting her head then and has significant bruising on the right side of her head and face. She hit her head on the same side as her previous fall. She complains of aches all over and muffled hearing in her right ear. Occurred: this evening Severity: moderate Injuries/Pain Location: head Context: other (Legs fell alseep on toilet) Loss of Consciousness: no loss of consciousness Associated Symptoms (Fall): No Abdominal Pain, No Chest Pain, No Dizziness; Headache; No Nausea/Vomiting (LIZBET PAGE) Initial Comments Here with report of fall tonight and being on the floor for about 4 hours aft erwards. She had fallen earlier this month as well. Previously on Coumadin but has stopped that (NETTE TIERNEY MD) Allergies and Home Medications Allergies Coded Allergies: Penicillins (Verified Allergy, Mild, Pt has received Ceftriaxone in the past w/o issue, 05/28/18) Home Medications Cholecalciferol (Vitamin D3) 2,000 Unit Capsule, 2,000 UNIT PO DAILY, (Reported) Citalopram Hydrobromide 20 Mg Tablet, 20 MG PO DAILY, (Reported) Oxybutynin Chloride 10 Mg Tab.er.24, 10 MG PO DAILY, (Reported) Warfarin Sodium 3 Mg Tablet, 6 MG PO DAILY@1800 Prescribed by: JOSEY MEJIA on 06/14/18 0820 Patient Home Medication List Home Medication List Reviewed: Yes (NETTE TIERNEY MD) Review of Systems Review of Systems Constitutional: no symptoms reported; No chills, No fever Eyes: Denies Blurred Vision, Denies Pain Ears, Nose, Mouth, Throat: ear pain (Right ear aches); denies epistaxis, denies throat pain Respiratory: no symptoms reported Cardiovascular: no symptoms reported Gastrointestinal: No abdominal pain; constipation; No diarrhea, No nausea, No vomiting Genitourinary: no symptoms reported Musculoskeletal: No neck pain; other (Generalized pain all over her body) Skin: see HPI Psychiatric/Neurological: No Symptoms Reported (LIZBET PAGE) All Other Systems Reviewed Negative Unless Noted: Yes (NETTE TIERNEY MD) Past Isyxmkp-Ihepqh-Xvnzqc Hx Past Med/Social Hx: Reviewed Nursing Past Med/Soc Hx (NETTE TIERNEY MD) Patient Social History 2nd Hand Smoke Exposure: No Recent Hopitalizations: Yes (MAY 2018 FOR A FALL) (LIZBET PAGE) Immunizations Up To Date Tetanus Booster (TDap): Less than 5yrs PED Vaccines UTD: Yes (LIZBET PAGE) Seasonal Allergies Seasonal Allergies: No (LIZBET PAGE) Past Medical History Surgeries: Yes (GREEN FIELD FILTER, LTK, RTK, L FOREARM METAL PLATE) Abdominal, Appendectomy, Eye Surgery, Orthopedic Respiratory: Yes Pulmonary Embolism Cardiac: Yes (irina filter placement) Deep Vein Thrombosis Neurological: No Genitourinary: Yes Bladder Infection Gastrointestinal: Yes Gastroesophageal Reflux, Diverticulosis, Hiatal Hernia Musculoskeletal: Yes Arthritis, Fractures Endocrine: No HEENT: Yes Cataract Loss of Vision: Denies Hearing Impairment: Hard of Hearing Cancer: No Psychosocial: Yes Anxiety, Depression Integumentary: No Blood Disorders: Yes (DVT/PE) (LIZBET PAGE) Family Medical History Reviewed Nursing Family Hx (NETTE TIERNEY MD) Cardiovascular disease G8 BROTHER Hypertension G8 BROTHER Myocardial infarction 19 MOTHER Respiratory disorder 19 FATHER G8 BROTHER No Pertinent Family Hx (LIZBET PAGE) Physical Exam Vital Signs Capillary Refill : (LIZBET PAGE) Height, Weight, BMI Height: 5'2.00" Weight: 224lbs. 1.6oz. [id number]; 43.9 BMI Method:Stated General Appearance: moderate distress HEENT: PERRL/EOMI, pharynx normal Neck: non-tender, normal inspection Cardiovascular: regular rate, rhythm, no gallop, no murmur Respiratory: lungs clear, normal breath sounds, no respiratory distress, no accessory muscle use Peripheral Pulses: 2+ Dorsalis Pedis (R), 2+ Left Dors-Pedis (L), 2+ Radial Pulses (R), 2+ Radial Pulses (L) Extremities: normal range of motion, no calf tenderness Neurologic/Psychiatric: alert, normal mood/affect, oriented x 3 Skin: warm/dry, ecchymosis (Right face, Left elbow, Right thigh) (LIZBET PAGE) General Appearance: WD/WN, mild distress HEENT: PERRL/EOMI, pharynx normal, other (large bruise over the right side of the face including the forehead and around the right eye and cheek.) Neck: non-tender, full range of motion, supple, normal inspection Cardiovascular: regular rate, rhythm, no murmur Respiratory: lungs clear, normal breath sounds Gastrointestinal: non tender, soft Back: normal inspection, no CVA tenderness, no vertebral tenderness Extremities: normal range of motion, no calf tenderness Neurologic/Psychiatric: alert, oriented x 3 Skin: warm/dry, ecchymosis (Right face, Left elbow, Right thigh and bilateral knees) (NETTE TIERNEY MD) Syed Coma Score Best Eye Response: (4) Open Spontaneously Best Verbal Response: (5) Oriented Best Motor Response: (6) Obeys Commands (NETTE TIERNEY MD) Progress/Results/Core Measures Results/Orders Lab Results Laboratory Tests Test 11/07/18 22:30 11/08/18 01:28 Range/Units White Blood Count 12.8 H 4.3-11.0 10^3/uL Red Blood Count 3.36 L 4.35-5.85 10^6/uL Hemoglobin 10.9 L 11.5-16.0 G/DL Hematocrit 33 L 35-52 % Mean Corpuscular Volume 97 80-99 FL Mean Corpuscular Hemoglobin 32 25-34 PG Mean Corpuscular Hemoglobin Concent 33 32-36 G/DL Red Cell Distribution Width 14.6 H 10.0-14.5 % Platelet Count 83 L 130-400 10^3/uL Mean Platelet Volume 10.2 7.4-10.4 FL Neutrophils (%) (Auto) 87 H 42-75 % Lymphocytes (%) (Auto) 4 L 12-44 % Monocytes (%) (Auto) 9 0-12 % Eosinophils (%) (Auto) 0 0-10 % Basophils (%) (Auto) 0 0-10 % Neutrophils # (Auto) 11.1 H 1.8-7.8 X 10^3 Lymphocytes # (Auto) 0.5 L 1.0-4.0 X 10^3 Monocytes # (Auto) 1.2 H 0.0-1.0 X 10^3 Eosinophils # (Auto) 0.0 0.0-0.3 10^3/uL Basophils # (Auto) 0.0 0.0-0.1 10^3/uL Neutrophils % (Manual) 89 % Lymphocytes % (Manual) 3 % Monocytes % (Manual) 6 % Band Neutrophils 2 % Blood Morphology Comment NORMAL Prothrombin Time 19.7 H 12.2-14.7 SEC INR Comment 1.6 H 0.8-1.4 Activated Partial Thromboplast Time 25 24-35 SEC Sodium Level 132 L 135-145 MMOL/L Potassium Level 4.8 3.6-5.0 MMOL/L Chloride Level 98 98-107 MMOL/L Carbon Dioxide Level 19 L 21-32 MMOL/L Anion Gap 15 H 5-14 MMOL/L Blood Urea Nitrogen 66 H 7-18 MG/DL Creatinine 2.16 H 0.60-1.30 MG/DL Estimat Glomerular Filtration Rate 22 BUN/Creatinine Ratio 31 Glucose Level 144 H 70-105 MG/DL Calcium Level 9.1 8.5-10.1 MG/DL Corrected Calcium 8.9 8.5-10.1 MG/DL Total Bilirubin 2.5 H 0.1-1.0 MG/DL Aspartate Amino Transf (AST/SGOT) 21 5-34 U/L Alanine Aminotransferase (ALT/SGPT) 16 0-55 U/L Alkaline Phosphatase 79 40-136 U/L Total Creatine Kinase 282 H 29-168 U/L Total Protein 7.8 6.4-8.2 GM/DL Albumin 4.2 3.2-4.5 GM/DL Urine Color TOMASA H Urine Clarity SLIGHTLY CLOUDY Urine pH 5 5-9 Urine Specific [place] 1.025 H 1.016-1.022 Urine Protein 2+ H NEGATIVE Urine Glucose (UA) NEGATIVE NEGATIVE Urine Ketones NEGATIVE NEGATIVE Urine Nitrite NEGATIVE NEGATIVE Urine Bilirubin 1+ H NEGATIVE Urine Urobilinogen NORMAL NORMAL MG/DL Urine Leukocyte Esterase 1+ H NEGATIVE Urine RBC (Auto) NEGATIVE NEGATIVE Urine RBC 2-5 H /HPF Urine WBC RARE /HPF Urine Squamous Epithelial Cells 2-5 /HPF Urine Crystals PRESENT H /LPF Urine Amorphous Sediment FEW MESERET URATES H /LPF Urine Bacteria TRACE /HPF Urine Casts PRESENT /LPF Urine Hyaline Casts 10-25 H /LPF Urine Granular Casts 0-2 H /LPF Urine Mucus SMALL H /LPF Urine Culture Indicated NO (NETTE TIERNEY MD) My Orders Orders - NETTE TIERNEY MD Cbc With Automated Diff (11/07/18 22:21) Comprehensive Metabolic Panel (11/07/18 22:21) Protime With Inr (11/07/18 22:21) Partial Thromboplastin Time (11/07/18 22:21) Manual Differential (11/07/18 22:30) Creatine Kinase (11/07/18 22:47) Ed Iv/Invasive Line Start (11/07/18 23:35) Ns Iv 500 Ml (Sodium Chloride 0.9%) (11/07/18 23:35) Ua Culture If Indicated (11/07/18 23:36) Acetaminophen Tablet (Tylenol Tablet) (11/08/18 00:03) (NETTE TIERNEY MD) Medications Given in ED Current Medications Medications Dose Ordered Sig/Ben Route Start Time Stop Time Status Last Admin Dose Admin Sodium Chloride 500 ml @ 0 mls/hr Q0M ONCE IV 11/07/18 23:35 11/07/18 23:36 DC 11/08/18 00:11 999 MLS/HR (NETTE TIERNEY MD) Progress Progress Note : Time: 22:00 Progress Note Pt seen by me. She reports having fallen tonight in her bathroom and being down for 4 hours before her niece came to check on her. She hit her head in the same spot as a previous fall a couple weeks ago. Spoke with Dr Tierney who evaluated patient and ordered a head and neck CT, CBC, CMP. (LIZBET PAGE) Progress Note : Progress Note Had seen and evaluated patient and agree with above except as indicated. I have directed the plan of care. IV, labs, CT head, face and neck ordered. I did remove the c-collar shortly after arrival as patient was uncomfortable related to c-collar but did not have actual cervical spine pain. We will still evaluate radiographically given age. Monitor patient. 2356: Labs reviewed and no significant renal dysfunction that is new and not normal for her. Hemoglobin is also slightly lower as well as platelets. INR is still elevated although less than her supratherapeutic state noted on previous evaluation. We're pending UA but I have discussed the case with Dr. Acharya, patient's primary care provider. Given the acute renal failure and frequent falls and dehydration noted, we will admit patient for rehydration and monitoring of her renal dysfunction. Patient will be admitted to the hospitalist service for Dr. Acharya will cover tonight. Admit, inpatient status. Patient and family agree with plan. Patient admitted for medical concerns not traumatic injury so admitted to medicine service. (NETTE TIERNEY MD) Diagnostic Imaging Diagonstic Imaging: CT Plain Films/CT/US/NM/MRI: facial bones, c-spine, head Comments Large right periorbital and frontal scalp hematoma. No skull fracture and no e vidence of intracranial hemorrhage. There is right periorbital soft tissue swelling. There is no evidence of orbital fracture or maxillofacial fracture. The mandible is unremarkable. The 10th for mandibular joints are normal physician. Zygomatic arches are intact. The sinuses are clear. There is cervical spondylosis but no acute fracture. Reviewed: Reviewed [place] Study (NETTE TIERNEY MD) Departure Communication (Admissions) Time/Spoke to Admitting Phy: 23:54 (NETTE TIERNEY MD) Impression Primary Impression: Acute renal failure Qualified Codes: N17.9 - Acute kidney failure, unspecified Additional Impression: Dehydration Disposition: ADMITTED INPATIENT Condition: Stable Admissions Decision to Admit Reason: Admit from ER (General) Decision to Admit/Date: Nov 07, 2018 Time/Decision to Admit Time: 23:54 (NETTE TIERNEY MD) Departure-Patient Inst. Referrals: YADI ACHARYA MD (PCP/Family) Primary Care Physician LIZBET PAGE Nov 07, 2018 22:41 NETTE TIERNEY MD Nov 07, 2018 23:40
[2018-11-07 23:03] LABS: INR 1.6 (0.8-1.4); PROTHROMBIN TIME PATIENT 19.7 SEC (12.2-14.7)
[2018-11-07 23:12] LABS: ALBUMIN 4.2 GM/DL (3.2-4.5); BILIRUBIN,TOTAL 2.5 MG/DL (0.1-1.0); CALCIUM 9.1 MG/DL (8.5-10.1); CREATININE SERUM 2.16 MG/DL (0.60-1.30); POTASSIUM 4.8 MMOL/L (3.6-5.0); TOTAL PROTEIN 7.8 GM/DL (6.4-8.2)
[2018-11-07 23:30] LABS: BAND NEUTROPHILS 2 %; NEUTROPHILS % (MANUAL) 89 %
[2018-11-07 23:31] LABS: LYMPHOCYTES % (MANUAL) 3 %; MONOCYTES % (MANUAL) 6 %; RBC MORPH NORMAL
[2018-11-07] MEDS ORDERED: NS IV 500 ML 500 ML IV ONE (23:35)
[2018-11-08] MEDS ORDERED: ACETAMINOPHEN 500 MG TAB (TYLENOL) PO STA (00:03)
--- NOTE | 2018-11-08 00:15 | NUR ---
PT TO BE ADMITTED, BUT WILL REMAIN IN ER UNTIL BED AVAILABLE/STAFFING AVAILABILITY.
[2018-11-08 01:36] LABS: CLARITY,URINE SLIGHTLY CLOUDY; COLOR,URINE AMBER; GLUCOSE, URINE (UA) NEGATIVE (NEGATIVE); KETONES,URINE NEGATIVE (NEGATIVE); LEUKOCYTE ESTERASE ,URINE 1+ (NEGATIVE); NITRITE,URINE NEGATIVE (NEGATIVE); PH,URINE 5 (5-9); PROTEIN,URINE 2+ (NEGATIVE); UROBILINOGEN,URINE NORMAL (NORMAL)
[2018-11-08 01:46] LABS: BILIRUBIN,URINE 1+ (NEGATIVE); WBC,URINE RARE /HPF
[2018-11-08 01:47] LABS: AMORPHOUS SEDIMENT,UR FEW AMOR URATES /LPF; BACTERIA,URINE TRACE /HPF; GRANULAR CASTS,URINE 0-2 /LPF
[2018-11-08] MEDS ORDERED: NS IV 1000 ML 1,000 ML IV SCH (02:00)
[2018-11-08] MEDS ORDERED: KETOROLAC 30 MG/ML VIAL ONE (06:09)
[2018-11-08] MEDS ORDERED: KETOROLAC 15 MG/ML VIAL IV ONE (06:15)
[2018-11-08] MEDS ORDERED: KETOROLAC 30 MG/ML VIAL IVP ONE (06:30)
--- NOTE | 2018-11-08 07:46 | Diagnostic Imaging Report ---
PROCEDURE: CT head, face, and cervical spine without contrast. TECHNIQUE: Multiple contiguous axial images were obtained through the head, neck, and facial bones without the use of intravenous contrast. Sagittal and coronal reformations through the cervical spine and facial bones were also performed. Auto Exposure Controls were utilized during the CT exam to meet ALARA standards for radiation dose reduction. INDICATION: Status post fall. EXAMINATION: CT brain, CT cervical spine and CT maxillofacial bones from 11/07/2018. COMPARISON: Made to CT brain and cervical spine 10/22/2018. FINDINGS: Brain: Diffuse chronic ischemic changes seen in a periventricular and deep white matter distribution. No acute hemorrhage or infarct is seen. There is no mass, mass effect or midline shift. No hydrocephalus. Diffuse fairly age-appropriate appropriate atrophy noted. There is a large scalp hematoma overlying the right frontal and parietal calvarium. No underlying fracture is appreciated. Periorbital contusion also noted on the right without evidence for an acute abnormality within the orbit itself. IMPRESSION: 1. Large scalp hematoma. No acute process appreciated. CT cervical spine: The lamina is preserved. Intervertebral space narrowing with anterior and posterior spurring noted at the C5-C6 level and C6-C7 as well. No obvious acute fractures are seen. No significant subluxations. Examination somewhat limited by the diffuse osteopenia. No obvious acute abnormalities however appreciated. Visualized lung apices unremarkable. Prevertebral soft tissues also unremarkable. IMPRESSION 1. Chronic findings cervical spine, no acute abnormality appreciated. If pain persists however, MRI recommended. CT maxillofacial: There is some motion artifact which limits evaluation of the osseous structures. No obvious displaced fractures are appreciated. There is marked soft tissue swelling around the right globe as described on the separate CT of the brain. There are no air-fluid levels within the sinuses. Deformity of the right mandibular condyle is noted with adjacent osseous fragments present. This has a rather chronic appearance but correlation with symptoms recommended. IMPRESSION: 1. Limited evaluation due to motion artifact. No obvious fractures are seen. Marked soft tissue swelling as described. 2. Deformity of the right mandibular condyle is noted with adjacent osseous fragments present. This has a rather chronic appearance but correlation with symptoms recommended. Dictated by: Dictated on workstation # [id number]
[2018-11-08 11:09] VITALS: BP 123/70
== END 2018-11-08 11:09 | disposition short-term general hospital (02) ==
LOC: EDUNIT# 21:27 → ER 21:27
DX: S00.83XA Contusion of other part of head, initial encounter (principal); S05.8X1A Other injuries of right eye and orbit, initial encounter; S50.02XA Contusion of left elbow, initial encounter; S70.11XA Contusion of right thigh, initial encounter; S80.01XA Contusion of right knee, initial encounter; S80.02XA Contusion of left knee, initial encounter; N17.9 Acute kidney failure, unspecified; E86.0 Dehydration; K21.9 Gastro-esophageal reflux disease without esophagitis; F41.9 Anxiety disorder, unspecified; F32.9 Major depressive disorder, single episode, unspecified; R40.2142 Coma scale, eyes open, spontaneous, at arrival to emergency department; R40.2252 Coma scale, best verbal response, oriented, at arrival to emergency department; R40.2362 Coma scale, best motor response, obeys commands, at arrival to emergency department; Z87.19 Personal history of other diseases of the digestive system; Z86.711 Personal history of pulmonary embolism; Z86.718 Personal history of other venous thrombosis and embolism; Z88.0 Allergy status to penicillin; Z79.01 Long term (current) use of anticoagulants; Z90.49 Acquired absence of other specified parts of digestive tract; Z82.49 Family history of ischemic heart disease and other diseases of the circulatory system; W18.12XA Fall from or off toilet with subsequent striking against object, initial encounter; Y92.002 Bathroom of unspecified non-institutional (private) residence as the place of occurrence of the external cause
CPT/HCPCS: 36415; 51702; 70450; 70486; 72125; 80053; 81000; 82550; 85007; 85027; 85610; 85730

== ENCOUNTER 2018-11-16 10:12 | Inpatient (IN) | payer MEDICARE ==
[~2018-11-16] VITALS: Ht 157.5 cm; Wt 110.7 kg
--- NOTE | 2018-11-16 12:25 | NUR ---
AYAN BOGGS admitted to room 231-1, with an admitting diagnosis of FALLS, on 11/16/18 from [facility], accompanied by STAFF. AYAN BOGGS introduced to surroundings, call light, bed controls, phone, TV, temperature control, lights, meal times, smoking policy, visitor policy, side rail policy, bathrooms and showers. Patient Rights given to patient in the handbook.AYAN BOGGS verbalizes understanding that [facility] is not responsible for the loss or damage to any personal effects or valuables that are kept in the patient's possession during their hospitalization. The following Patient Care Plans were discussed with the PATIENT: Discharge Planning, IMPAIRED MOBILITY, HIGH RISK: IMPAIRED SKIN INTEGRITY, HIGH RISK: INJURY, and KNOWLEDGE DEFICIT. AYAN BOGGS verbalizes understanding of Interdisciplinary Patient Education. Patient received Patient Rights Booklet, which includes Privacy Act Statement and Data Collection Information Summary.
[2018-11-16] MEDS ORDERED: PANT40TA2 PO (13:16)
[2018-11-16] MEDS ORDERED: NYST15PO4 TP (13:16)
[2018-11-16] MEDS ORDERED: FURO20TA4 PO (13:16)
[2018-11-16] MEDS ORDERED: ACET325T38 PO (13:16)
[2018-11-16] MEDS ORDERED: POLY17PO6 PO (13:16)
[2018-11-16] MEDS ORDERED: POTA10TA36 PO (13:16)
[2018-11-16] MEDS ORDERED: MENT71OI TP (13:16)
[2018-11-16] MEDS ORDERED: ACETAMINOPHEN 325 MG TABLET PO PRN (14:15)
--- NOTE | 2018-11-16 14:39 | Physical Therapy Evaluation ---
PT Evaluation-General Medical Diagnosis Admission Date Nov 16, 2018 at 12:34 Medical Diagnosis: acute renal failure Onset Date: Oct 21, 2018 Therapy Diagnosis Therapy Diagnosis: unstable gait Height/Weight Height (Feet): 5 Height (Inches): 2.00 Weight (Pounds): 239 Weight (Ounces): 6.0 Precautions Precautions/Isolations: Fall Prevention Weight Bear Status Full Weight Bearing Full Weight Bearing Referral Physician: Racheal Miller DO Reason for Referral: Evaluation/Treatment Medical History Pertinent Medical History: Arthritis, GERD Additional Medical History multiple falls Current History Pt fell at home Reviewed History: Yes Social History Home: Apartment Current Living Status: Alone Resides at [facility] complex Prior/Core FIM Prior Level of Function Therapy Code Descriptions/Definitions Functional Attala Measure: 0=Not Assessed/NA 4=Minimal Assistance 1=Total Assistance 5=Supervision or Setup 2=Maximal Assistance 6=Modified Attala 3=Moderate Assistance 7=Complete Attala Therapy Quality Codes: 6 Independent with activity with or without an assistive device 5 Patient requires set up or clean up by helper. Patient completes activity by themselves 4 Supervision or touching assist (CGA). Radcliffe provide cues , steadying assist 3 The helper provides less than half the effort to complete the activity 2 The helper provides more than half the effort to complete the activity 1 Dependent. The helper does all the effort to complete an activity 7 Patient refused to complete or attempt activity 9 The patient did not perform the activity before the current illness or injury 88 Not attempted due to Medical conditions or safety concerns Functional Abilities and Goals: Independent: Patient completed the activities by him/herself, with or without an assistive device, with no assistance from a helper. Needed Some Help: Patient needed partial assistance from another person to complete activities. Dependent: A helper completed the activities for the patient. Unknown: Not Applicable: Bed Mobility: 6 Transfers (B,C,W/C) (FIM): 6 Gait: 6 PT Evaluation-Current Subjective Pt reports approximately 1 month ago she stood from the commode, blacked out, and fell. She laid on the floor for 3 hours. Pt admitted to [facility]. She discharged to [facility] for skilled therapy. She now returns to the inpatient rehab unit for more aggressive therapy to promote return to her apartment. Objective Patient Orientation: Person, Place, Time, Situation Problem Solving: Good ROM/Strength ROM Lower Extremities WFL with exception of (B) knee flexion to 90 degrees. Limited secondary to old TKAs and LE edema. Strenght Lower Extremities ankle DF 4/5, knee ext 4/5, hamstrings 4/5, hip flex 3/5, hip abd 4/5 Integumentary/Posture Integumentary 2+ pitting edema (B) LE Transfers Therapy Code Descriptions/Definitions Functional Attala Measure: 0=Not Assessed/NA 4=Minimal Assistance 1=Total Assistance 5=Supervision or Setup 2=Maximal Assistance 6=Modified Attala 3=Moderate Assistance 7=Complete Attala Therapy Quality Codes: 6 Independent with activity with or without an assistive device 5 Patient requires set up or clean up by helper. Patient completes activity by themselves 4 Supervision or touching assist (CGA). [place]cliffe provide cues , steadying assist 3 The helper provides less than half the effort to complete the activity 2 The helper provides more than half the effort to complete the activity 1 Dependent. The helper does all the effort to complete an activity 7 Patient refused to complete or attempt activity 9 The patient did not perform the activity before the current illness or injury 88 Not attempted due to Medical conditions or safety concerns Transfers (B, C, W/C) (FIM): 3 Scootin Rollin Roll Left to Right (QC): 3 Supine to/from Sit: 4 Sit to/from Stand: 3 Sit to Lying (QC): 3 Lying to Sitting/Side of Bed(Q: 3 Sit to Stand (QC): 3 Chair/Jpm-ur-Lskuf Xfer(QC): 4 Car Transfer (QC): 3 needs physical assist to raise both legs into bed and also into the car. She needs physical assist to come to stand if her knees are flexed to 90 degrees. Rising from an elevated surface requires Min A. Gait Mode of Locomotion: Walk Anticipated Mode of Locomotion: Walk Gait (FIM): 2 Distance (FIM): 1=827-29 ft Walk 10 feet (QC): 4 Walk 50 ft with 2 Turns(QC): 4 Walk 150 ft (QC): 1 Walking 10ft/uneven surface-QC: 4 Distance: 65 Gait Level of Assist: 4 Gait Assistive Device: FWW Comments/Gait Description wide base of support with short stride length. Stairs Stairs (FIM): 0 #of Steps: 1 Level of Assist: 3 1 Step (curb) (QC): 3 4 Steps (QC): 9 Assistive Device: Walker 12 Steps (QC): 09 If not tested on admit;explain Pt did not perform stair ambulation prior to this hosptilization. She is not safe for stair ambulation due to LE weakness. Balance Sitting Static: Good Sitting Dynamic: Good Standing Static: Poor Standing Dynamic: Poor Picking up an Object (QC): 9 Assessment/Needs Pt has reduced LE strength, reduced balance, and unsteady gait. She has a history of multiple falls. Pt will benefit from physical therapy to promote improved stability and balance during standing and walking activities. Physical therapy will be advantageous in promoting a discharge to home as prior to admission. Rehab Potential: Good Post Rehab Potential-Barriers: age, hisotry of falls, family supporot PT Short Term Goals Short Term Goals Time Frame: Dec 01, 2018 Transfers (B,C,W/C) (FIM): 4 Gait (FIM): 4 Distance (FIM): 3=150 ft Gait Distance Comment: 150 Gait Level of Assist: 4 Gait Assistive Device: FWW PT Half-Way Goals Half-Way Goals PT Escalator Constructor Goals Time Frame: Dec 01, 2018 Transfers (B,C,W/C) (FIM): 6 Sit to Lying (QC): 6 Lying-Sitting on Side/Bed(QC): 6 Sit to Stand (QC): 6 Rollin Roll Left to Right (QC): 6 Chair/Nrb-yy-Orthb Xfer(QC): 6 Car Transfer (QC): 5 Gait (FIM): 5 Gait distance (FIM): 3=150 ft Distance: 150 Walk 10 feet (QC): 6 Walk 10ft-Uneven Surface(QC): 6 Walk 50ft with 2 Turns (QC): 6 Walk 150 ft (QC): 6 Gait Assistive Device: FWW Wheel 50 feet with 2 turns (QC: 9 Stairs (FIM): 9 1 Step (curb) (QC): 5 4 Steps (QC): 9 12 Steps (QC): 9 Stairs Level Of Assist: 5 Picking up an Object (QC): 9 PT Plan Problem List Problem List: Balance, Gait, Transfer, Bed Mobility Treatment/Plan Treatment Plan: Continue Plan of Care Treatment Plan: Bed Mobility, Education, Functional Activity Cintia, Functional Strength, Gait, Safety, Therapeutic Exercise Treatment Duration: Dec 01, 2018 Frequency: At least 5 of 7 days/Wk (IRF) Estimated Hrs Per Day: 1.5 hours per day Patient and/or Family Agrees t: Yes Discharge Recommendations Barriers to Progress age, history of falls Target Placement apartment Time/GCodes Time In: 1255 Time Out: 1355 Total Billed Treatment Time: 60 Total Billed Treatment visit, eval high complexity 60 min SABINE HINKLE PT Nov 16, 2018 14:39
--- NOTE | 2018-11-16 14:47 | NUR ---
UPDATED MED REC WITH DISCHARGE ORDERS FROM [facility]. NEW PRESCRIPTIONS: NYSTATIN POWDER BID TYLENOL 650MG Q6H PRN CALMOSEPTINE OINT QID PRN PROTONIX 40MG DAILY FUROSEMIDE 20MG DAILY POTASSIUM 10MEQ DAILY MIRALAX 17GM DAILY THERE WAS NOT INDICATION OF MEDICATIONS TO CONTINUE OR STOP TAKING. ACCORDING TO PREVIOUS RECORDS AND THE EXT MED HX THE PATIENT RECENTLY FILLED WARFARIN AND CITALOPRAM. THE NURSE STATES SHE WAS TOLD THE WARFARIN WAS BEING HELD DUE TO THE INCREASE OF FALLS RECENTLY. I REMOVED IT FROM THE MED REC AT THIS TIME. I LEFT THE CITALOPRAM ON THE MED REC TO BE ADDRESSED. ADDITIONALLY I REMOVED VITAMIN D DAILY THAT WAS REPORTED AT A PREVIOUS VISIT. 10-13-18 JANTOVEN 2MG 2.5 TABS DAILY OR UD #80 10-13-18 CITALOPRAM 20MG DAILY #30 WILL REMOVE THE NEW MEDICATIONS AND UPDATE THE MED REC TO WHAT THE PATIENT WAS TAKING PRIOR TO DISCHARGE FROM [facility] AT A LATER DATE. Addendum: 11/17/18 at 0829 by BASSEM STARKEY [facility] REMOVED THE 7 NEW PRESCRIPTIONS STARTED AT [facility], AND LEFT THE CITALOPRAM ON THE MED REC THE PATIENT HAD FILLED PRIOR TO ADMISSION.
--- NOTE | 2018-11-16 15:25 | Occupational Therapy Eval ---
OT Evaluation-General/PLF Medical Diagnosis Admission Date Nov 16, 2018 at 12:34 Medical Diagnosis: acute renal failure Onset Date: Oct 21, 2018 Therapy Diagnosis Therapy Diagnosis: Decreased ADL skills Height/Weight Height (Feet): 5 Height (Inches): 2.00 Weight (Pounds): 239 Weight (Ounces): 6.0 Precautions Precautions/Isolations: Fall Prevention, Standard Precautions Referral Physician: Racheal Miller DO Referral Reason: Activity Tolerance, Self Care, Evaluation/Treatment, Strengthening/ROM Medical History Pertinent Medical History: Arthritis, GERD Additional Medical History Pt. has had multiple recent falls. Transferred to swing bed at [place]. Came to this rehab facility when ready. Reviewed History: Yes Social History Home: Apartment Current Living Status: Alone Entry Into Home: Level Entry ADL-Prior Level of Function Therapy Code Descriptions/Definitions Functional [place] Measure: 0=Not Assessed/NA 4=Minimal Assistance 1=Total Assistance 5=Supervision or Setup 2=Maximal Assistance 6=Modified [place] 3=Moderate Assistance 7=Complete [place] Therapy Quality Codes: 6 Independent with activity with or without an assistive device 5 Patient requires set up or clean up by helper. Patient completes activity by themselves 4 Supervision or touching assist (CGA). [place] provide cues , steadying assist 3 The helper provides less than half the effort to complete the activity 2 The helper provides more than half the effort to complete the activity 1 Dependent. The helper does all the effort to complete an activity 7 Patient refused to complete or attempt activity 9 The patient did not perform the activity before the current illness or injury 88 Not attempted due to Medical conditions or safety concerns Functional Abilities and Goals: Independent: Patient completed the activities by him/herself, with or without an assistive device, with no assistance from a helper. Needed Some Help: Patient needed partial assistance from another person to complete activities. Dependent: A helper completed the activities for the patient. Unknown: Not Applicable: ADL PLOF Comments Pt. lives in [facility] apartments. Pt. reports to this therapist that she has fallen several times in the last month. Pt. demonstrates extreme bruising on right side of face. Self Care: Unknown Functional Cognition: Independent DME/Equipment: Bath Bench, Tub/Shower DME/Equipment Comments Pt. states that she uses a cane generally, but that she borrowed a walker from a friend. OT Current Status Subjective Pt. reports "being sore" in right shoulder with movement. Reports 3/10 pain. Nursing give tylenol. No other pain reported to this therapist. Appearance Pt. up in chair. Agrees to work with therapist. Mental Status/Objective Patient Orientation: Person, Place Current Hand Dominance: Right Upper Extremity ROM Pt. demonstrates very limited AROM in right shoulder. Approximately 15 degrees. Left shoulder demonstrates 90 degrees actively. ADL-Treatment Eating (FIM): 0 Eating (QC): 7 Grooming (FIM): 0 Oral Hygiene (QC): 7 Bathing (FIM): 2 Shower/Bathe Self (QC): 2 Upper Body Dressing (FIM): 3 Upper Body Dressing (QC): 3 Lower Body Dressing (FIM): 1 Lower Body Dressing (QC): 1 On/Off Footwear (QC): 1 Toileting (FIM): 3 (per PT) Toileting Hygiene (QC): 3 Transfers (B, C, W/C) (FIM): 3 Toilet/Commode Transfer (FIM): 3 Toilet Transfer (QC): 3 Shower Transfer (FIM): 0 Other Treatments OT assisted pt. out of car at beginning of treatment, as pt. had just arrived. Mod assist to swing legs out and mod assist sit-stand. Pt. transferred to wheelchair. OT brought to rehab unit. Pt. introduced to surroundings, but is familiar due to previous stays. OT assisted pt. to bed with mod assist sit- stand, and pivot to bed. Mod assist sit-supine. All needs met. OT came back and completed partial co-treatment with PT. Assisted pt. sit-stand from chair and to complete curb step with OT assisting with hand placement on walker and assist for posture while PT assisted with mobility and cues for safety. Pt. completed this task and then PT/OT continued to ambulate with pt. to room. Pt. fatigued easily and had to sit in wheelchair. Please see PT note for distance ambulated. Pt. agreed to sponge bathe up in chair. Required assistance for sponge bath. Transferred back to bed after tasks. All needs met. OT ordered lunch for pt. Education OT Patient Education: Correct positioning, Exercise program, Modified ADL techniques, Progress toward Goal/Update tx plan, Purpose of tx/functional activities, Reviewed precautions, Rehab process, Transfer techniques Teaching Recipient: Patient Teaching Methods: Demonstration, Discussion Response to Teaching: Verbalize Understanding, Return Demonstration OT Short Term Goals Short Term Goals Time Frame: Nov 30, 2018 Eating(FIM): 5 Grooming(FIM): 4 Bathing(FIM): 3 Upper Body Dressing(FIM): 3 Lower Body Dressing(FIM): 3 Toileting(FIM): 3 Transfers (B,C,W/C) (FIM): 4 Toilet/Commode Transfer(FIM): 4 Shower Transfer(FIM): 3 Additional Short Term Goals: 1-Demonstrate ADL Tasks, 2-Verbalize Understanding, 3-ImproveStrength/Cintia 1=Demonstrate adherence to instructed precautions during ADL tasks. 2=Patient will verbalize/demonstrate understanding of assistive devices/modifications for ADL. 3=Patient will improve strength/tolerance for activity to enable patient to perform ADL's. OT Tar Processing Technician Goals Nursing Home Goals Time Frame: Dec 14, 2018 Eating (FIM): 7 Eating (QC): 6 Groomin Oral Hygiene (QC): 6 Bathing(FIM): 5 Shower/Bathe Self (QC): 4 Upper Body Dressing(FIM): 5 Upper Body Dressing (QC): 4 Lower Body Dressing(FIM): 5 Lower Body Dressing (QC): 4 On/Off Footwear (QC): 4 Toileting(FIM): 6 Toileting Hygiene (QC): 6 Transfers (B,C,W/C) (FIM): 6 Toilet/Commode Transfer(FIM): 6 Toilet/Commode Transfer (QC): 6 Shower Transfer(FIM): 5 Additional Goals: 1-Demonstrate ADL Tasks, 2-Verbalize Understanding, 3- ImproveStrength/Cintia 1=Demonstrate adherence to instructed precautions during ADL tasks. 2=Patient will verbalize/demonstrate understanding of assistive de vices/modifications for ADL. 3=Patient will improve strength/tolerance for activity to enable patient to perform ADL's. OT Education/Plan Problem List/Assessment Assessment: Decreased Activ Tolerance, Decreased UE Strength, Dependent Transfers, Impaired Bed Mobility, Impaired Funct Balance, Impaired I ADL's, Impaired Self-Care Skills, Restricted Funct UE ROM Discharge Recommendations Plan/Recommendations: Continue POC Therapy Discharge Recommendati: Scheduled Assistance Comment Equipment needs and discharge location to be determined. Treatment Plan/Plan of Care Treatment,Training & Education: Yes Patient would benefit from OT for education, treatment and training to promote independence in ADL's, mobility, safety and/or upper extremity function for ADL's. Plan of Care: ADL Retraining, Functional Mobility, Group Exercise/Act as Ind, U E Funct Exercise/Act Treatment Duration: Dec 14, 2018 Frequency: At least 5 of 7 days/Wk (IRF) Estimated Hrs Per Day: 1.5 hours per day Agreement: Yes Rehab Potential: Good Time/GCodes Start Time: 12:25 Stop Time: 14:45 Total Time Billed (hr/min): 90 Billed Treatment Time 9098-1861 1, EVH x 10minutes, FA x 15minutes [id number] FA x 30minutes co-treat with PT. Please see above note for designated roles. [id number] ADL x 35minutes CURT GILLESPIE OT Nov 16, 2018 15:25
--- NOTE | 2018-11-16 15:58 | Physical Therapy Daily Note ---
PT Daily Note-Current Subjective Pt reports she is fatigues from the busyness of the day but she thinks it is good. Transfers Therapy Code Descriptions/Definitions Functional [place] Measure: 0=Not Assessed/NA 4=Minimal Assistance 1=Total Assistance 5=Supervision or Setup 2=Maximal Assistance 6=Modified [place] 3=Moderate Assistance 7=Complete [place] Therapy Quality Codes: 6 Independent with activity with or without an assistive device 5 Patient requires set up or clean up by helper. Patient completes activity by themselves 4 Supervision or touching assist (CGA). [place] provide cues , steadying assist 3 The helper provides less than half the effort to complete the activity 2 The helper provides more than half the effort to complete the activity 1 Dependent. The helper does all the effort to complete an activity 7 Patient refused to complete or attempt activity 9 The patient did not perform the activity before the current illness or injury 88 Not attempted due to Medical conditions or safety concerns Weight Bearing Full Weight Bearing Full Weight Bearing Exercises Supine Ex: Bridging, Ankle pumps, Quad Set, Glut sets, Lower trunk rotation, Heel Slides, Short Arc Quads, Straight leg raise, Hip abd/add Supine Reps: 15 active assist as needed for heel slides and SLR. Performed end range passive knee flexion stretching (B). Assessment Performed LE strength exercises to promote functional transfers and ambulation. PT Short Term Goals Short Term Goals Time Frame: Dec 01, 2018 Transfers (B,C,W/C) (FIM): 4 Gait (FIM): 4 Distance (FIM): 3=150 ft Gait Distance Comment: 150 Gait Level of Assist: 4 Gait Assistive Device: FWW PT Client Solutions Manager Goals Nursing Home Goals PT Client Solutions Manager Goals Time Frame: Dec 01, 2018 Transfers (B,C,W/C) (FIM): 6 Sit to Lying (QC): 6 Lying-Sitting on Side/Bed(QC): 6 Sit to Stand (QC): 6 Rollin Roll Left to Right (QC): 6 Chair/Awp-pp-Behgg Xfer(QC): 6 Car Transfer (QC): 5 Gait (FIM): 5 Gait distance (FIM): 3=150 ft Distance: 150 Walk 10 feet (QC): 6 Walk 10ft-Uneven Surface(QC): 6 Walk 50ft with 2 Turns (QC): 6 Walk 150 ft (QC): 6 Gait Assistive Device: FWW Wheel 50 feet with 2 turns (QC: 9 Stairs (FIM): 9 1 Step (curb) (QC): 5 4 Steps (QC): 9 12 Steps (QC): 9 Stairs Level Of Assist: 5 Picking up an Object (QC): 9 PT Plan Treatment/Plan Treatment Plan: Continue Plan of Care Treatment Plan: Bed Mobility, Education, Functional Activity Cintia, Functional Strength, Gait, Safety, Therapeutic Exercise Treatment Duration: Dec 01, 2018 Frequency: At least 5 of 7 days/Wk (IRF) Estimated Hrs Per Day: 1.5 hours per day Patient and/or Family Agrees t: Yes Time/GCodes Time In: 1425 Time Out: 1557 Total Billed Treatment Time: 30 Total Billed Treatment visit, ex 30 min SABINE HINKLE PT Nov 16, 2018 15:58
[2018-11-16 17:32] VITALS: BP 94/60
[2018-11-16] MEDS ORDERED: MENTHOL/ZINC OXIDE (CALMOSEPTINE) 113 GM TUBE TP PRN (18:45)
[2018-11-16] MEDS: MICONAZOLE 2% POWDER (DESENEX AF) 90 GM TOP SCH (20:05)
[2018-11-16] MEDS: POLYETHYLENE GLYCOL 17 GM (MIRALAX) PACK PO SCH (20:05)
--- NOTE | 2018-11-16 20:17 | Progress Note - Hospitalist ---
Progress Note Chief complaint: Debility following fall. HPI: This is a 81yoWF clinic Pt of Dr. 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 Lower extremity edema was managed with low-dose Lasix and Potassium along with wide susan wraps. Bowels returned back to normal after multiple laxatives that resolved the issue. Her prior level of functioning was with the use of assistive devices at home but she has a history of multiple falls and will inquire if she is willing to go to assistive living which would serve her a lot better and provide her with a little bit more support but she likely will want to return home to live independently so will need to aggressively treat her in need to regain hr independence of ADLs and ambulation in order to return home. JOSEY MEJIA DO Nov 16, 2018 20:17
[2018-11-16] MEDS: ACETAMINOPHEN 325 MG TABLET PO PRN (22:23)
[2018-11-17] MEDS: KCL 10 MEQ TAB (MICRO K) PO SCH (06:02)
[2018-11-17] MEDS: PANTOPRAZOLE 40 MG (PROTONIX) TAB PO SCH (06:02)
[2018-11-17 06:06] VITALS: BP 104/65
[2018-11-17 06:40] LABS: BASOPHILS % (AUTO) 0 % (0-10); EOSINOPHILS # (AUTO) 0.2 10^3/uL (0.0-0.3); EOSINOPHILS % (AUTO) 3 % (0-10); HEMATOCRIT 28 % (35-52); HEMOGLOBIN 8.8 G/DL (11.5-16.0); LYMPHOCYTES # (AUTO) 1.3 X 10^3 (1.0-4.0); LYMPHOCYTES % (AUTO) 16 % (12-44); MEAN CORPUSCULAR HEMOGLOBIN 32 PG (25-34); MEAN CORPUSCULAR HGB CONC 32 G/DL (32-36); MEAN CORPUSCULAR VOLUME 100 FL (80-99); MEAN PLATELET VOLUME 8.9 FL (7.4-10.4); MONOCYTES # (AUTO) 0.5 X 10^3 (0.0-1.0); MONOCYTES % (AUTO) 6 % (0-12); NEUTROPHILS # (AUTO) 6.1 X 10^3 (1.8-7.8); NEUTROPHILS % (AUTO) 75 % (42-75); PLATELET COUNT 214 10^3/uL (130-400); RED CELL DISTRIBUTION WIDTH 15.3 % (10.0-14.5); WHITE BLOOD COUNT 8.2 10^3/uL (4.3-11.0)
[2018-11-17 07:03] LABS: ALBUMIN 3.2 GM/DL (3.2-4.5); BILIRUBIN,TOTAL 1.2 MG/DL (0.1-1.0); CALCIUM 8.5 MG/DL (8.5-10.1); CREATININE SERUM 1.15 MG/DL (0.60-1.30); POTASSIUM 4.1 MMOL/L (3.6-5.0); TOTAL PROTEIN 6.7 GM/DL (6.4-8.2)
[2018-11-17] MEDS: FUROSEMIDE 20 MG (LASIX) TAB PO SCH (08:10)
[2018-11-17] MEDS: MICONAZOLE 2% POWDER (DESENEX AF) 90 GM TOP SCH ×2 (08:10→20:16)
[2018-11-17] MEDS: ACETAMINOPHEN 325 MG TABLET PO PRN ×2 (08:13→14:17)
[2018-11-17] MEDS ORDERED: NON-FORMULARY MEDICATION 1 EA EA (Polyethylene Glycol 3350 (Miralax) 17 GM) PO SCH (09:00)
[2018-11-17] MEDS ORDERED: NON-FORMULARY MEDICATION 1 EA EA (Potassium Chloride 10 MEQ) PO SCH (09:00)
--- NOTE | 2018-11-17 09:07 | NUR ---
BEAD FORMING MACHINE SET UP OPERATOR met with patient to complete initial assessment. Patient was alert and oriented x4 and agreeable to assessment. Patient known to this BEAD FORMING MACHINE SET UP OPERATOR has patient previously completed ARU stay in August 2016 and May 2018 after sustaining a fall resulting in a closed head injury. Patient presents to ARU this admission from [facility] with similar injuries following another fall. Patient resides alone in an customs entry clerk apartment at [facility] in [place], [place]. The apartment is handicap accessible including a walker in shower. Patient possess a shower chair, quad cane and walker. Prior to fall, patient reports independence with ambulation and ADLs. Following a knee surgery a few years, completed by Dr. Montes, patient utilized the cane and walker, but has not needed this equipment since recovery. Patient continued to drive prior to fall and completed her own housekeeping and cooking. Patient identifies niece, Odette of [place], as primary contact ([phone]) and brotherDejan of [place] as a secondary contact ([phone]). Odette works supervisor warping department, but is the patients closest support. Verified PCP as Dr. Acharya. Patient has Medicare and [employer] supplement for insurance coverage, with prescription coverage, and utilizes [facility] for local pharmacy needs. BEAD FORMING MACHINE SET UP OPERATOR reviewed typical rehab length of stay and weekly team conferences with patient, she expressed no concerns as she is very familiar with the program. .Due to continued falls, BEAD FORMING MACHINE SET UP OPERATOR again stressed the recommendation of [facility] placement, this was recommended during each previous ARU stay; however, patient refused. BEAD FORMING MACHINE SET UP OPERATOR approached the subject again and informed patient that BEAD FORMING MACHINE SET UP OPERATOR will be required to contact APS at discharge, if patient returns home, as it is evident that this is no longer a safe option. Patient expresses concerns regarding financial abilities for CARE HOME. BEAD FORMING MACHINE SET UP OPERATOR will work to obtain quotes for CARE HOME placement. BEAD FORMING MACHINE SET UP OPERATOR will follow for appropriate discharge needs.
--- NOTE | 2018-11-17 10:27 | ST Cognitive Linguistic Eval ---
Speech Evaluation-General Medical Diagnosis acute renal failure Onset Date: Oct 21, 2018 Therapy Diagnosis Therapy Diagnosis: Cognitive-communication Precautions Precautions: Fall Precautions/Isolations: Standard Precautions Referral Referring Physician: Dr. Miller Reason for Referral: Evaluation/Treatment Medical History Pertinent Medical History: Arthritis, GERD Arthritis, GERD Current History Acute renal failure, falls Reviewed History: Yes Social History Home: Single Level Current Living Status: Alone Speech PLF-Current Status Prior Level of Function The patient lived at home alone and was independent with most of her daily needs. She has family that check up on her frequently. Subjective The patient was pleasant and cooperative with the cognitive assessment. Language Eval: Auditory Comprehends Simple Yes/No Ques: Functional Indent/Objects Multiple [place]: Functional Ident/Pics in Multiple [place]: Functional Follows 1-Step Commands: Functional Follows Complex Directions: Mild Follows General Conversations: Functional Language Eval: Verbal Language Completes Spontaneous Greeting: Functional Produces Auto, Serial Info: Functional Imitates Simple Words/Phrases: Functional Word Finding: Functional Requests Basic Needs: Functional States Basic Personal Info: Functional Expresses Complex Ideas: Functional Objective Cognitive Domain Attention: WNL Memory: WNL Problem Solving: Functional Executive Functions: WNL Visuospatial Skills: WNL Composite Severity Rating: WNL Clock Drawing Severity Rating: WNL Objective Formal/Standardized Tests [facility] Mental Status ([facility]) Results 27/30, within normal range Oral Motor/Speech Production Within Functional Limits Impression The patient is a pleasant 83 year old woman who was admitted to the ARU s/p fall with injury. The patient was a recent patient in the ARU for the same reason, however on that admission she had experienced a broken arm. She was given the SLUMS with a score of 27/30 which falls within the normal range of function. The patient does not warrant skilled ST services at this time. Communication/Social Cognition Comprehension: 7 Expression: 7 Social Interaction: 7 Problem Solvin Memory: 7 Speech Patient Assess Expression of Ideas/Wants: Expression (4) Understanding Verbal Content: Understands (4) Brief Interview-Mental Status: Yes Repetition of Three Words: Three (3) Temporal Orientation: Year: Correct (3) Temporal Orientation: Month: Accurate within 5 days(2) Temporal Orientation: Day: Correct (1) Recall : Wear to say "Sock": Yes, no cue required (2) Recall : Color: Yes, no cue required (2) Recall : Bed: Yes,after cueing (1) Memory/Recall Ability: Current season, Location of own room, Staff names and faces, That he or she is in a hsp/hsp unit Speech-Plan Patient/Family Goals Patient/Family Goals: The patient plans on returning home post rehab with family support as needed. Treatment Plan Speech Therapy Treatment Plan: Discontinue ST The patient does not warrant skilled ST at this time. Treatment Duration: Nov 17, 2018 Frequency: 1 time per week Estimated Hrs Per Day: .25 hour per day Rehab Potential: Good Barriers to Learning: None identified Pt/Family Agrees to Plan: Yes Safety Risks/Education Teaching Recipient: Patient Teaching Methods: Discussion Response to Teaching: Verbalize Understanding Education Topics Provided: Safety within her room Time Speech Therapy Time In: 10:00 Speech Therapy Time Out: 10:15 Total Billed Time: 15 Billed Treatment Time 1, SPSNDCOMP TOBI Bey Nov 17, 2018 10:27
--- NOTE | 2018-11-17 11:08 | Occupational Ther Daily Note ---
OT Current Status-Daily Note Subjective Pt in bed, agrees to treatment. Pt reports 2/10 pain in right shoulder. Mental Status/Objective Therapy Code Descriptions/Definitions Functional [place] Measure: 0=Not Assessed/NA 4=Minimal Assistance 1=Total Assistance 5=Supervision or Setup 2=Maximal Assistance 6=Modified [place] 3=Moderate Assistance 7=Complete [place] ADL-Treatment Pt declined shower, would like a sponge bath. Supine to sit with min assist and increased time. Sponge bath completed seated EOB. Pt required max assist overall to complete. Pt able to thread left UE into shirt and partially thread right UE, but requires assist to pocket and pulley machine operator head and pull down in back secondary to pain in right shoulder. Pt doffed socks with SBA using dressing stick. Min assist to don socks with sock aid. Transfer to [facility] with min assist using FWW. Pt requires assist to complete toileting hygiene and to don clean Depends. Pt able to pull Depends up on left side, but requires assist on right. Pt transferred to chair with min assist. Pt moves slowly,but had no LOB. Pt declined to complete oral care at this time. Pt requires increased time for ADL and mobility tasks. Sitting in chair with needs met after session. Therapy Code Descriptions/Definitions Functional [place] Measure: 0=Not Assessed/NA 4=Minimal Assistance 1=Total Assistance 5=Supervision or Setup 2=Maximal Assistance 6=Modified [place] 3=Moderate Assistance 7=Complete [place] Therapy Quality Codes: 6 Independent with activity with or without an assistive device 5 Patient requires set up or clean up by helper. Patient completes activity by themselves 4 Supervision or touching assist (CGA). [place] provide cues , steadying assist 3 The helper provides less than half the effort to complete the activity 2 The helper provides more than half the effort to complete the activity 1 Dependent. The helper does all the effort to complete an activity 7 Patient refused to complete or attempt activity 9 The patient did not perform the activity before the current illness or injury 88 Not attempted due to Medical conditions or safety concerns Bathing (FIM): 2 Shower/Bathe Self (QC): 2 Upper Body (FIM): 3 Upper Body Dressing (QC): 3 Lower Body Dressing (FIM): 2 Lower Body Dressing (QC): 2 On/Off Footwear (QC): 3 Toileting (FIM): 2 Toileting Hygiene (QC): 2 Toilet/Commode Transfer (FIM): 4 Education OT Patient Education: Modified ADL techniques Teaching Recipient: Patient Teaching Methods: Demonstration, Discussion Response to Teaching: Verbalize Understanding, Return Demonstration OT Short Term Goals Short Term Goals Time Frame: Nov 30, 2018 Eating(FIM): 5 Grooming(FIM): 4 Bathing(FIM): 3 Upper Body Dressing(FIM): 3 Lower Body Dressing(FIM): 3 Toileting(FIM): 3 Transfers (B,C,W/C) (FIM): 4 Toilet/Commode Transfer(FIM): 4 Shower Transfer(FIM): 3 Additional Short Term Goals: 1-Demonstrate ADL Tasks, 2-Verbalize Understanding, 3-ImproveStrength/Cintia 1=Demonstrate adherence to instructed precautions during ADL tasks. 2=Patient will verbalize/demonstrate understanding of assistive devices/modifications for ADL. 3=Patient will improve strength/tolerance for activity to enable patient to perform ADL's. OT Automation Qa Analyst Goals Automation Qa Analyst Goals Time Frame: Dec 14, 2018 Eating (FIM): 7 Eating (QC): 6 Groomin Oral Hygiene (QC): 6 Bathing(FIM): 5 Shower/Bathe Self (QC): 4 Upper Body Dressing(FIM): 5 Upper Body Dressing (QC): 4 Lower Body Dressing(FIM): 5 Lower Body Dressing (QC): 4 On/Off Footwear (QC): 4 Toileting(FIM): 6 Toileting Hygiene (QC): 6 Transfers (B,C,W/C) (FIM): 6 Toilet/Commode Transfer(FIM): 6 Toilet/Commode Transfer (QC): 6 Shower Transfer(FIM): 5 Additional Goals: 1-Demonstrate ADL Tasks, 2-Verbalize Understanding, 3- ImproveStrength/Cintia 1=Demonstrate adherence to instructed precautions during ADL tasks. 2=Patient will verbalize/demonstrate understanding of assistive devices/modifications for ADL. 3=Patient will improve strength/tolerance for activity to enable patient to perform ADL's. OT Education/Plan Discharge Recommendations Plan/Recommendations: Continue POC Treatment Plan/Plan of Care Patient would benefit from OT for education, treatment and training to promote independence in ADL's, mobility, safety and/or upper extremity function for ADL's. Plan of Care: ADL Retraining, Functional Mobility, Group Exercise/Act as Ind, UE Funct Exercise/Act Treatment Duration: Dec 14, 2018 Frequency: At least 5 of 7 days/Wk (IRF) Estimated Hrs Per Day: 1.5 hours per day Agreement: Yes Rehab Potential: Good Time/GCodes Start Time: 09:00 Stop Time: 10:00 Total Time Billed (hr/min): 60 Billed Treatment Time 1 visit, ADLx4(60minutes) VANNA BRAGG OT Nov 17, 2018 11:08
--- NOTE | 2018-11-17 11:17 | PM&R H&P / Post Admit Assess ---
History of Present Illness HPI/Chief Complaint CC: Debility following fall HPI: This is a 81yoWF clinic Pt of Dr. 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 Lower extremity edema was managed with low-dose Lasix and Potassium along with wide susan wraps. Bowels returned back to normal after multiple laxatives that resolved the issue. Her prior level of functioning was with the use of assistive devices at home but she has a history of multiple falls and will inquire if she is willing to go to assistive living which would serve her a lot better and provide her with a little bit more support but she likely will want to return home to live independently so will need to aggressively treat her in need to regain hr independence of ADLs and ambulation in order to return home. Source: patient, old records Exam Limitations: no limitations Date Seen 11/17/18 Time Seen by a Provider: 09:30 Attending Physician Racheal Miller DO PCP Garrett Acharya MD Referring Physician Date of Admission Nov 16, 2018 at 12:34 Home Medications & Allergies Home Medications Reviewed patient Home Medication Reconciliation performed by pharmacy medication reconciliations computer operations technician and/or nursing. Patients Allergies have been reviewed. Allergies Allergies Coded Allergies Penicillins (Verified Allergy, Mild, Pt has received Ceftriaxone in the past w/o issue, 05/28/18) Past Lpddpyk-Dpphrb-Ihzbxs Hx Past Med/Social Hx: Reviewed Nursing Past Med/Soc Hx, Reviewed and Corrections made Patient Social History Marrital Status: single Employed/Student: retired Alcohol Use: Denies Use Recreational Drug Use: No Smoking Status: Never a Smoker 2nd Hand Smoke Exposure: No Physical Abuse Screen: No Sexual Abuse: No Recent Foreign Travel: No Contact w/other who traveled: No Recent Hopitalizations: No Recent Infectious Disease Expo: No Immunizations Up To Date Tetanus Booster (TDap): Less than 5yrs Pediatric: Yes Seasonal Allergies Seasonal Allergies: No Past Medical History Surgeries: Abdominal, Appendectomy, Eye Surgery, Orthopedic Respiratory: Pulmonary Embolism Cardiac: Deep Vein Thrombosis Genitourinary: Bladder Infection OAB Gastrointestinal: Gastroesophageal Reflux, Diverticulosis, Hiatal Hernia Musculoskeletal: Arthritis, Fractures HEENT: Cataract Loss of Vision: Denies Hearing Impairment: Hard of Hearing Psychosocial: Anxiety, Depression History of Blood Disorders: Yes (DVT/PE) Family History Cardiovascular disease G8 BROTHER Hypertension G8 BROTHER Myocardial infarction 19 MOTHER Respiratory disorder 19 FATHER G8 BROTHER No Pertinent Family Hx Review of Systems Constitutional: see HPI, weakness EENTM: no symptoms reported Respiratory: no symptoms reported Cardiovascular: edema Gastrointestinal: no symptoms reported Genitourinary: no symptoms reported Musculoskeletal: back pain, joint pain Skin: no symptoms reported Psychiatric/Neurological: No Symptoms Reported All Other Systems Reviewed Negative Unless Noted: Yes Physical Exam Exam Vital Signs Vital Signs Date Time Temp Pulse Resp B/P (MAP) Pulse Ox O2 Delivery O2 Flow Rate FiO2 11/17/18 08:00 Room Air 11/17/18 06:06 98.6 68 17 104/65 (78) 98 Capillary Refill : General Appearance: No Apparent Distress, WD/WN, Chronically ill, Obese HEENT: PERRL/EOMI, Pharynx Normal, Moist Mucous Membranes, Other (ecchymosis right facial contusion improved) Neck: Full Range of Motion, Normal Inspection, Non Tender, Supple Respiratory: Chest Non Tender, Lungs Clear, Normal Breath Sounds, No Accessory Muscle Use, No Respiratory Distress Cardiovascular: Regular Rate, Rhythm, No Gallop, No JVD, No Murmur Gastrointestinal: Normal Bowel Sounds, No Organomegaly, No Pulsatile Mass, Non Tender, Soft Back: Normal Inspection, No CVA Tenderness, No Vertebral Tenderness Extremity: Normal Capillary Refill, Normal Inspection, Normal Range of Motion, Non Tender, No Calf Tenderness, Pedal Edema Neurologic/Psychiatric: Alert, Oriented x3, No Motor/Sensory Deficits, Normal Mood/Affect Skin: Normal Color, Warm/Dry Lymphatic: No Adenopathy Results Results/Procedures Labs Laboratory Tests 11/17/18 06:30 Patient resulted labs reviewed. Assessment/Plan Assessment and Plan (1) Fall Status: Acute Qualifiers: Encounter type: subsequent encounter Qualified Codes: W19.XXXD - Unspecified fall, subsequent encounter (2) Edema Status: Acute Qualifiers: Edema type: localized Qualified Codes: R60.0 - Localized edema (3) Depression Status: Chronic Qualifiers: Depression Type: unspecified Qualified Codes: F32.9 - Major depressive disorder, single episode, unspecified (4) Obesity Status: Chronic Qualifiers: Obesity type: due to excess calories Body mass index: BMI 40.0-44.9 (5) Traumatic hematoma of forehead Status: Acute Qualifiers: Encounter type: subsequent encounter Qualified Codes: S00.83XD - Contusion of other part of head, subsequent encounter (6) Debility Status: Acute (7) Acute renal failure Status: Acute Qualifiers: Acute renal failure type: unspecified Qualified Codes: N17.9 - Acute kidney failure, unspecified (8) Dehydration Status: Acute Post Admission Physician Asses Date seen by provider: Nov 17, 2018 Time seen by provider: 09:30 Admisison Dx: (1) Debility Status: Acute The preadmission screen agrees with the post admission assessment that the patient is a good candidate for inpatient rehabilitation. The patient will have a comprehensive program of inpatient rehabilitation with a goal of maximizing level of functional independence prior to discharge home with family. The patient will have PT/OT ninety minutes per day, each discipline, five days a week for gait, strengthening, conditioning, balance, ADLs, any p atient/family/caregiver training as necessary. Speech therapy to do cognitive assessment and treat as indicated. Rehabilitation nursing to assist with bowel, bladder, skin, wound care, medication administration, pain management. Fancy Needleworker to assist with discharge planning, community reentry. SCD's for DVT prophylaxis. She appears to be well motivated to participate in three hours of therapy a day. She should be able to tolerate three hours of therapy a day from a medical standpoint. She should benefit from the three hours of therapy a day. She has a reasonable discharge plan, reasonable discharge rehabilitation goals and a supportive family. She has various comorbidities that need to be closely monitored with medications and treatments adjusted on a daily basis as needed. These include: see list Barriers to discharge for this patient who had been independent prior to this a re for her to be modified independent to supervision for ADLs and mobility skills prior to discharge home with family, so as to lessen the burden of the caregivers. Risks for this patient include: 1. Fall 2. Fracture 3. DVT 4. Pulmonary embolism 5. Wound infection 6. Skin breakdown 7. Contractures 8. Poorly controlled pain 9. Urinary retention 10. UTI 11. Respiratory infection 12. Aspiration Estimated Length of Stay: 10 days Prognosis: Rehab prognosis appears good for goal of discharge home with family modified independent to supervision for ADLs and mobility skills. RACHEAL MILLER DO Nov 17, 2018 11:17
--- NOTE | 2018-11-17 11:21 | Physical Therapy Daily Note ---
PT Daily Note-Current Subjective Pt. agrees to Rx. Shares how she fell and states " this is the worst yet" Pain Numeric Pain Scale: 4 Location: Right Location Body Site: Shoulder Pain Description: Ache Mental Status Patient Orientation: Normal For Age Transfers Therapy Code Descriptions/Definitions Functional [place] Measure: 0=Not Assessed/NA 4=Minimal Assistance 1=Total Assistance 5=Supervision or Setup 2=Maximal Assistance 6=Modified [place] 3=Moderate Assistance 7=Complete [place] Therapy Quality Codes: 6 Independent with activity with or without an assistive device 5 Patient requires set up or clean up by helper. Patient completes activity by themselves 4 Supervision or touching assist (CGA). Waldo provide cues , steadying assist 3 The helper provides less than half the effort to complete the activity 2 The helper provides more than half the effort to complete the activity 1 Dependent. The helper does all the effort to complete an activity 7 Patient refused to complete or attempt activity 9 The patient did not perform the activity before the current illness or injury 88 Not attempted due to Medical conditions or safety concerns Transfers (B, C, W/C) (FIM): 3 Scootin Rollin Supine to/from Sit: 3 Sit to/from Stand: 4 needs instruction in rolling and sup to sit as right shoulder wt bearing is not possible secondary to pain etc, sit to stand with rocking momentum on "3" and instruct to wt shift forward, "nose over FWW" Weight Bearing Full Weight Bearing Full Weight Bearing Gait Training Does the Patient Walk?: Yes Gait (FIM): 2 Distance (FIM): 8=225-02 ft (125, 100, 50) Gait Level of Assist: 4 Gait Persons Needed: 1 Gait Assistive Device: FWW slow, fatigues quickly Wheelchair Training Does the Pt Use a Wheelchair?: Yes Wheelchair (FIM): 1 Wheelchair Distance: 1=up to 49 ft (10ftx2) Wheelchair Level of Assist: 2 Type of Wheelchair: Manual Exercises Supine Ex: Bridging, Ankle pumps, Rolling, Glut sets, Heel Slides, Short Arc Quads, Scooting, Hip abd/add Supine Reps: 15 Seated Therapy Exercises: Ankle pumps, Sit to stand, Long arc quads, Hip flexion Seated Reps: 15 Assessment Current Status: Good Progress pain in right shoulder inhibits function PT Short Term Goals Short Term Goals Time Frame: Dec 01, 2018 Transfers (B,C,W/C) (FIM): 4 Gait (FIM): 4 Distance (FIM): 3=150 ft Gait Distance Comment: 150 Gait Level of Assist: 4 Gait Assistive Device: FWW PT Senior Engineering Specialist Goals Chcf Goals PT Senior Engineering Specialist Goals Time Frame: Dec 01, 2018 Transfers (B,C,W/C) (FIM): 6 Sit to Lying (QC): 6 Lying-Sitting on Side/Bed(QC): 6 Sit to Stand (QC): 6 Rollin Roll Left to Right (QC): 6 Chair/Tdi-jn-Xhvvu Xfer(QC): 6 Car Transfer (QC): 5 Gait (FIM): 5 Gait distance (FIM): 3=150 ft Distance: 150 Walk 10 feet (QC): 6 Walk 10ft-Uneven Surface(QC): 6 Walk 50ft with 2 Turns (QC): 6 Walk 150 ft (QC): 6 Gait Assistive Device: FWW Wheel 50 feet with 2 turns (QC: 9 Stairs (FIM): 9 1 Step (curb) (QC): 5 4 Steps (QC): 9 12 Steps (QC): 9 Stairs Level Of Assist: 5 Picking up an Object (QC): 9 PT Plan Treatment/Plan Treatment Plan: Continue Plan of Care Treatment Plan: Bed Mobility, Education, Functional Activity Cintia, Functional Strength, Gait, Safety, Therapeutic Exercise Treatment Duration: Dec 01, 2018 Frequency: At least 5 of 7 days/Wk (IRF) Estimated Hrs Per Day: 1.5 hours per day Patient and/or Family Agrees t: Yes Safety Risks/Education Patient Education: Gait Training, Transfer Techniques, Correct Positioning, W/C Management, Disease Process, Safety Issues Teaching Recipient: Patient Teaching Methods: Demonstration, Discussion Response to Teaching: Verbalize Understanding, Return Demonstration, Reinforcement Needed Time/GCodes Time In: 1030 Time Out: 1115 Total Billed Treatment Time: 45 Total Billed Treatment 1,GT15m, EX15m,FA15m ZION COLEY PTA Nov 17, 2018 11:21
--- NOTE | 2018-11-17 13:19 | Diagnostic Imaging Report ---
CLINICAL INDICATION: Patient fell a couple of weeks ago at home. The more she uses it, the worse the pain gets. EXAM: X-ray of the right shoulder, three views. COMPARISON: None. FINDINGS: There is no acute fracture or dislocation. There are moderate to severely hypertrophic spurs involving the right acromioclavicular joint. There are mildly hypertrophic spurs involving the proximal humeral head/neck junction region and mild spurring of the glenoid. There are subchondral cystic changes involving the proximal humeral tuberosity region. IMPRESSION: Degenerative disease of the right shoulder. Dictated by: Dictated on workstation # [id number]
[2018-11-17] MEDS: DICLOFENAC 1% GEL 100 GM (VOLTAREN) TUBE TOP PRN (14:18)
--- NOTE | 2018-11-17 15:13 | Therapy Group Daily Note ---
Therapy Daily Group Note Patient Education Topic Other List Below (memory) Exercises LE Seated Exercise, UE Exercise Session Ratio (pt:therapist): 4:1 Goal of Session: Memory Strategies, UE/LE Strengthing Goal Met for this Session: Yes Pt Benefit of Group: Contributions to Others, Increased Functional Strength, Improved Cognition, Recognition of Peers, Socialization Other/Notes Pt transported via w/c to OT group. Group consisted of introductions (name, place living, worst thing forgot then remembered), socialization, seated UE/LE seated exercises, review of ARU, memory activity/exercises and education on memory strategies. Pt introduced self appropriately and actively listened to peers. Pt was able to participate in group effectively and engaged in peer conversations. Memory activity completed and pt was able to match 2 of 2 withou t difficulty. Pt tolerated UE/LE seated exercises well, 1 set 10 reps of each exercise. Pt acknowledged understanding of educational topic verbally by giving personal strategies and activities to strengthen memory. After therapy, pt lying in bed with call light/phone in reach. All needs met in room. Start Time: 13:00 Stop Time: 14:20 Total Billed Treatment Time: 80 Total Billed Treatment 1-GRP PAULINO MEJIA Nov 17, 2018 15:12
--- NOTE | 2018-11-17 15:15 | NUR ---
RN EMERGENCY ROOM met with patient to review team conference summary. As patient just recently admitted, requires min to mod assist for standing, mod assist for getting into bed, mod assist for upper extremity ADLs, max assist for lower body ADLs and min assist for ADL transfers, team has recommended patient be reevaluated at next team conference on 911. Patient is agreeable to this. RN EMERGENCY ROOM again emphasized the need for MAXIMILIANO placement.
[2018-11-17 17:09] VITALS: BP 117/70
[2018-11-17] MEDS: POLYETHYLENE GLYCOL 17 GM (MIRALAX) PACK PO SCH (20:16)
[2018-11-18 05:55] VITALS: BP 101/62
[2018-11-18] MEDS: PANTOPRAZOLE 40 MG (PROTONIX) TAB PO SCH (06:10)
[2018-11-18] MEDS: KCL 10 MEQ TAB (MICRO K) PO SCH (06:10)
--- NOTE | 2018-11-18 08:25 | Individualized Plan of Care ---
Individualized Plan of Care Rehab Nursing IPOC Order Admission Date Nov 16, 2018 at 12:34 Current Orders Orders Admission Order(Inpt,Obs,Sdc) (11/16/18 10:49) Vital Signs: Per Unit Policy ( 08,16,00 (11/16/18 10:49) Director Content Marketing-Inpt Rehab Con (11/16/18 10:49) Rehab Nursing Orders-Ipoc (11/16/18 10:49) Physical Therapy Rehab Orders (11/16/18 10:49) Occupational Therapy Rehab Ord (11/16/18 10:49) Speech Therapy Rehab Orders (11/16/18 10:49) Intake & Output 06,14,22 (11/16/18 10:49) Precautions (Aru) (11/16/18 10:49) Weekly Weight (Lbs) WEEK (11/16/18 10:49) Rehab-Intensity Of Therapy (11/16/18 10:49) Initiate Admission Nursing Pro .admission (11/16/18 10:49) Initiate Admission Nursing Pro .admission (11/16/18 10:49) General/Regular (11/16/18 Lunch) Acetaminophen Tablet/Caplet (Tylenol T (11/16/18 14:15) Patient Visit (11/16/18 ) Pt Eval High Complexity (11/16/18 ) Sequential Compression Device (11/16/18 15:04) Dvt/Vte Risk - Notifiy Physici .ONCE (11/16/18 15:04) Patient Visit (11/16/18 ) Exercise Therap, Ea 15 Min (11/16/18 ) Acetaminophen Tablet/Caplet (Tylenol T (11/16/18 18:45) Citalopram Tablet (Celexa Tablet) (11/17/18 09:00) Furosemide Tablet (Lasix Tablet) (11/17/18 09:00) Menthol/Zinc Oxide Ointment (Calmoseptin (11/16/18 18:45) Pantoprazole Tablet (Protonix Tablet) (11/17/18 07:00) (Nf) Polyethylene Glycol 3350 (Miralax) (11/17/18 09:00) (Nf) Potassium Chloride (11/17/18 09:00) Miconazole 2% Powder (Desenex Af 2% Powd (11/16/18 21:00) Potassium Chloride (Tablet) (Klor Con Ta (11/17/18 07:00) Polyethylene Glycol Powder Pkt (Miralax (11/16/18 21:00) Cbc With Automated Diff (11/17/18 06:00) Comprehensive Metabolic Panel (11/17/18 06:00) Diclofenac 1% Gel (Voltaren 1% Gel) (11/17/18 09:45) Shoulder, Right, 3 Views (11/17/18 11:39) Patient Visit (11/17/18 ) Speech Sound Lang Comp (11/17/18 ) Patient Visit (11/17/18 ) Gait Training, Ea 15 Min (11/17/18 ) Exercise Therap, Ea 15 Min (11/17/18 ) Functional Activities, Ea 15 (11/17/18 ) Patient Visit (11/18/18 ) Gait Training, Ea 15 Min (11/18/18 ) Exercise Therap, Ea 15 Min (11/18/18 ) Patient Visit (11/18/18 ) Exercise Therap, Ea 15 Min (11/18/18 ) Gait Training, Ea 15 Min (11/18/18 ) Rehab Nursing Orders: Ongoing Assess. of Cognitive Status, Ongoing Assess. of Function Status, Bladder Training, Bowel Management, Disease Management & Educaiton, DVT Prophylaxis, Fall Prevention, Fluid/Electrolyte/Nutrition Mgmt, Infection Prevention, Management of Risks & Complications, Management of Skin Intergrity, Nutrition Management, Pain Management, Patient/Family Support, S afety Management Intensity of Therapy to be met Patient to be seen: Min.3h per day/5 of 7d PT IPOC Problem List: Balance, Gait, Transfer, Bed Mobility Treatment Plan: Continue Plan of Care Bed Mobility, Education, Functional Activity Cintia, Functional Strength, Gait, Safety, Therapeutic Exercise Treatment Duration: Dec 01, 2018 Frequency: At least 5 of 7 days/Wk (IRF) Estimated Hrs Per Day: 1.5 hours per day OT IPOC Problems: Decreased Activ Tolerance, Decreased UE Strength, Dependent Transfers, Impaired Bed Mobility, Impaired Funct Balance, Impaired I ADL's, Impaired Self-Care Skills, Restricted Funct UE ROM OT Treatment, Training and Edu: Yes Plan of Care: ADL Retraining, Functional Mobility, Group Exercise/Act as Ind, UE Funct Exercise/Act Treatment Duration: Dec 14, 2018 Frequency: At least 5 of 7 days/Wk (IRF) Estimated Hrs Per Day: 1.[address] IPOC Speech Therapy Treatment Plan: Discontinue ST Treatment Duration: Nov 17, 2018 Frequency: 1 time per week Estimated Hrs Per Day: .25 hour per day Director Content Marketing/Case Mgmt Director Content Marketing/Case Managemen: Discharge Planning Dietitian/Rn Mds Coordinator Dietitian/Rn Mds Coordinator to monitor nutritional status and make changes and/or recommendations as needed and work with speech pathology on dietary upgrades as the occur. Physician IPOC Medical Issues being managed closely and that require the 24 hour availability of a physician: Multiple falls with significant injury and recent DC OAC due to falls with filter in place with h/o DVT and PE will require close monitoring in addition new edema requiring new Lasix and potassium and wide susan wraps will monitor for hypokalemia and ARF Medical Issues: Bowel/Bladder Function, DVT Prophylaxis, Falls Precautions, Fluid/Electrolyte/Nutrition Balance, Pain Management Brief Synthesis of Preadmission Screen, Post-Admission Evaluation, and Therapy Evaluations: PT will focus on fall prevention and the use of assistive devices OT will focus on ADL regaining of independence Medical Prognosis: Good Anticipated Length of Stay: 10 days JOSEY MEJIA DO Nov 18, 2018 08:25
[2018-11-18] MEDS: MICONAZOLE 2% POWDER (DESENEX AF) 90 GM TOP SCH ×2 (08:41→20:06)
[2018-11-18] MEDS: DICLOFENAC 1% GEL 100 GM (VOLTAREN) TUBE TOP PRN (08:41)
[2018-11-18] MEDS: FUROSEMIDE 20 MG (LASIX) TAB PO SCH (08:41)
--- NOTE | 2018-11-18 09:29 | PM&R Progress Note ---
Subjective HPI/CC On Admission Date Seen by Provider: Nov 18, 2018 Time Seen by Provider: 09:00 CC: Debility following fall HPI: This is a 81yoWF clinic Pt of Dr. 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 Lower extremity edema was managed with low-dose Lasix and Potassium along with wide susan wraps. Bowels returned back to normal after multiple laxatives that resolved the issue. Her prior level of functioning was with the use of assistive devices at home but she has a history of multiple falls and will inquire if she is willing to go to assistive living which would serve her a lot better and provide her with a little bit more support but she likely will want to return home to live independently so will need to aggressively treat her in need to regain hr independence of ADLs and ambulation in order to return home. Subjective/Events-last exam Right shoulder is responding to Voltaren gel and X-ray just showed degeneration, may need shoulder injection if it continues. Hgb 8.8. Slept well. Some incontinence but that is chronic. Bowels moving well Lower extremity edema will be managed with wide susan wraps, Lasix and potassium. Conferred with RN Reviewed therapy notes Checked meds and labs Review of Systems General: Fatigue Musculoskeletal: leg pain Objective Exam Vital Signs Vital Signs Date Time Temp Pulse Resp B/P (MAP) Pulse Ox O2 Delivery O2 Flow Rate FiO2 11/18/18 17:04 97.2 76 16 95/54 (68) 100 Room Air Capillary Refill : General Appearance: No Apparent Distress, WD/WN, Chronically ill, Obese HEENT: PERRL/EOMI, Pharynx Normal, Moist Mucous Membranes, Other (ecchymosis right facial contusion improved) Neck: Full Range of Motion, Normal Inspection, Non Tender, Supple Respiratory: Chest Non Tender, Lungs Clear, Normal Breath Sounds, No Accessory Muscle Use, No Respiratory Distress Cardiovascular: Regular Rate, Rhythm, No Gallop, No JVD, No Murmur Gastrointestinal: Normal Bowel Sounds, No Organomegaly, No Pulsatile Mass, Non Tender, Soft Back: Normal Inspection, No CVA Tenderness, No Vertebral Tenderness Extremity: Normal Capillary Refill, Normal Inspection, Normal Range of Motion, Non Tender, No Calf Tenderness, Pedal Edema Neurologic/Psychiatric: Alert, Oriented x3, No Motor/Sensory Deficits, Normal Mood/Affect Skin: Normal Color, Warm/Dry Lymphatic: No Adenopathy Results/Procedures Lab Patient resulted labs reviewed. FIM Transfers Therapy Code Descriptions/Definitions Functional [place] Measure: 0=Not Assessed/NA 4=Minimal Assistance 1=Total Assistance 5=Supervision or Setup 2=Maximal Assistance 6=Modified [place] 3=Moderate Assistance 7=Complete [place] Therapy Quality Codes: 6 Independent with activity with or without an assistive device 5 Patient requires set up or clean up by helper. Patient completes activity by themselves 4 Supervision or touching assist (CGA). [place] provide cues , steadying assist 3 The helper provides less than half the effort to complete the activity 2 The helper provides more than half the effort to complete the activity 1 Dependent. The helper does all the effort to complete an activity 7 Patient refused to complete or attempt activity 9 The patient did not perform the activity before the current illness or injury 88 Not attempted due to Medical conditions or safety concerns Transfers (B, C, W/C) (FIM): 3 Scootin Rollin Roll Left to Right (QC): 3 Supine to/from Sit: 3 Sit to/from Stand: 4 Sit to Lying (QC): 3 Sit to Stand (QC): 3 Chair/Qbh-mt-Mlgwc Xfer(QC): 4 Car Transfer (QC): 3 Gait Training Does the Patient Walk?: Yes Gait (FIM): 2 Distance (FIM): 5=517-60 ft (125, 100, 50) Walk 10 feet (QC): 4 Walk 50 ft with 2 Turns(QC): 4 Walk 150 ft (QC): 1 Walking 10ft/uneven surface-QC: 4 Gait Level of Assist: 4 Gait Persons Needed: 1 Gait Assistive Device: FWW Wheelchair Training Does the Pt Use a Wheelchair?: Yes Wheelchair (FIM): 1 Wheelchair Distance: 1=up to 49 ft (10ftx2) Wheelchair Level of Assist: 2 Type of Wheelchair: Manual Stair Training Stairs (FIM): 0 #of Steps: 1 1 Step (curb) (QC): 3 4 Steps (QC): 9 12 Steps (QC): 09 Level of Assist: 3 Balance Picking up an Object (QC): 9 Mental Status/Objective Comprehension: 7 Expression: 7 Social Interaction: 7 Problem Solvin Memory: 7 ADL-Treatment Feedin Eating (QC): 7 Groomin Oral Hygiene (QC): 7 Bathin Shower/Bathe Self (QC): 2 Upper Extremity Dressin Upper Body Dressing (QC): 3 Lower Extremity Dressin Lower Body Dressing (QC): 2 On/Off Footwear (QC): 3 Toiletin Toileting Hygiene (QC): 2 Toilet/Commode Transfer: 4 Toilet Transfer (QC): 3 Shower: 0 Assessment/Plan Assessment and Plan Assess & Plan/Chief Complaint Plan: IRF protocol Pain control with APAP Fall risk prevention BM regimen Voltaren gel for right shoulder pain Xray right shoulder ok and if needed will consult Ortho Needs [place] at DC... (1) Debility Status: Acute (2) Acute renal failure Status: Acute Qualifiers: Acute renal failure type: unspecified Qualified Codes: N17.9 - Acute kidney failure, unspecified (3) Dehydration Status: Acute (4) Facial hematoma Status: Acute (5) Nausea Status: Acute (6) Fall Status: Acute Qualifiers: Encounter type: subsequent encounter Qualified Codes: W19.XXXD - Unspecified fall, subsequent encounter (7) Obesity Status: Chronic Qualifiers: Obesity type: due to excess calories Body mass index: BMI 40.0-44.9 (8) Traumatic hematoma of forehead Status: Acute Qualifiers: Encounter type: subsequent encounter Qualified Codes: S00.83XD - Contusion of other part of head, subsequent encounter (9) Edema Status: Acute Qualifiers: Edema type: localized Qualified Codes: R60.0 - Localized edema (10) Depression Status: Chronic Qualifiers: Depression Type: unspecified Qualified Codes: F32.9 - Major depressive disorder, single episode, unspecified JOSEY MEJIA DO Nov 18, 2018 09:29
--- NOTE | 2018-11-18 09:30 | Physical Therapy Daily Note ---
PT Daily Note-Current Subjective Patient in recliner pre tx, agrees to PT, has 2/10 pain in her head, patient states she needs to use the restroom for a BM, she needs max assist for her brief and assist with wiping. Appearance Patient in recliner post tx with nurse call, phone, tray, legs elevated. Mental Status Patient Orientation: Normal For Age Transfers Therapy Code Descriptions/Definitions Functional [place] Measure: 0=Not Assessed/NA 4=Minimal Assistance 1=Total Assistance 5=Supervision or Setup 2=Maximal Assistance 6=Modified [place] 3=Moderate Assistance 7=Complete [place] Therapy Quality Codes: 6 Independent with activity with or without an assistive device 5 Patient requires set up or clean up by helper. Patient completes activity by themselves 4 Supervision or touching assist (CGA). [place] provide cues , steadying assist 3 The helper provides less than half the effort to complete the activity 2 The helper provides more than half the effort to complete the activity 1 Dependent. The helper does all the effort to complete an activity 7 Patient refused to complete or attempt activity 9 The patient did not perform the activity before the current illness or injury 88 Not attempted due to Medical conditions or safety concerns Transfers (B, C, W/C) (FIM): 4 Sit to/from Stand: 4 Bed to/from Chair: 4 Min assist for sit to stand especially from lower surfaces, CGA for transfers Weight Bearing Full Weight Bearing Full Weight Bearing Gait Training Gait (FIM): 2 Distance: 70'x4 Gait Level of Assist: 4 Gait Assistive Device: FWW CGA, slow Exercises Seated Therapy Exercises: Ankle pumps, Hip flexion Seated Reps: 20 LAQ alternating for 5 min Treatments ambulation, transfers, LE exercise, toileting Assessment Current Status: Fair Progress improving general mobility but patient gets dizzy with transitions PT Short Term Goals Short Term Goals Time Frame: Dec 01, 2018 Transfers (B,C,W/C) (FIM): 4 Gait (FIM): 4 Distance (FIM): 3=150 ft Gait Distance Comment: 150 Gait Level of Assist: 4 Gait Assistive Device: FWW PT Driver/Guide Goals Driver/Guide Goals PT Usp Goals Time Frame: Dec 01, 2018 Transfers (B,C,W/C) (FIM): 6 Sit to Lying (QC): 6 Lying-Sitting on Side/Bed(QC): 6 Sit to Stand (QC): 6 Rollin Roll Left to Right (QC): 6 Chair/Pro-ks-Guysg Xfer(QC): 6 Car Transfer (QC): 5 Gait (FIM): 5 Gait distance (FIM): 3=150 ft Distance: 150 Walk 10 feet (QC): 6 Walk 10ft-Uneven Surface(QC): 6 Walk 50ft with 2 Turns (QC): 6 Walk 150 ft (QC): 6 Gait Assistive Device: FWW Wheel 50 feet with 2 turns (QC: 9 Stairs (FIM): 9 1 Step (curb) (QC): 5 4 Steps (QC): 9 12 Steps (QC): 9 Stairs Level Of Assist: 5 Picking up an Object (QC): 9 PT Plan Problem List Problem List: Activity Tolerance, Functional Strength, Safety, Balance, Gait, Transfer, Bed Mobility, ROM Treatment/Plan Treatment Plan: Continue Plan of Care Treatment Plan: Bed Mobility, Education, Functional Activity Cintia, Functional Strength, Gait, Safety, Therapeutic Exercise Treatment Duration: Dec 01, 2018 Frequency: At least 5 of 7 days/Wk (IRF) Estimated Hrs Per Day: 1.5 hours per day Patient and/or Family Agrees t: Yes Safety Risks/Education Patient Education: Gait Training, Transfer Techniques, Correct Positioning, S afety Issues Teaching Recipient: Patient Teaching Methods: Demonstration, Discussion Response to Teaching: Reinforcement Needed Time/GCodes Time In: 45 Time Out: 929 Total Billed Treatment Time: 45 Total Billed Treatment 1 visit GT 30' EX 15' GLORY STOKES PT Nov 18, 2018 09:30
[2018-11-18] MEDS: ACETAMINOPHEN 325 MG TABLET PO PRN ×2 (09:39→20:14)
--- NOTE | 2018-11-18 11:55 | Progress Note ---
[facility] 11/18/18 1155: Subjective Date Seen by a Provider: Nov 18, 2018 Time Seen by a Provider: 07:45 Subjective/Events-last exam pt seen this morning; pt was asleep but quickly arousable to her name being called at the time of evaluation. pleasant and interactive. slept well. had an episode of urinary incontinence last night, however states she has had this problem prior to hospitalizations. Stable vitals. Pt was complaining of R shoulder yesterday which she believed was from falling on it, today however she denies any shoulder pain. Explained the result of R shoulder Xray with pt. pt has not had any BMs today and agrees to continue with Miralax. Pt has bilat LE edema and DENIS wraps were put on yesterday and removed this morning. pt states the DENIS wraps helped and that she will continue to use them. Participated in therapy today and continues to improve. Not much change observed in the state of her hematomas s/p fall. Pt has no other complaints at this time. I have her latest reviewed her Labs/Meds/therapy notes. Review of Systems General: No Fatigue; Appetite (normal) HEENT: No Head Aches Pulmonary: No Dyspnea, No Cough, No Pleuritic Chest Pain Cardiovascular: No: Chest Pain, Palpitations, Orthopnea, Paroxysmal Noc. Dyspnea, Edema, Lt Headedness Gastrointestinal: No: Nausea, Vomiting Genitourinary: No Dysuria; Incontinence (chronic) Objective Exam Last Set of Vital Signs Vital Signs Date Time Temp Pulse Resp B/P (MAP) Pulse Ox O2 Delivery O2 Flow Rate FiO2 11/18/18 09:00 Room Air 11/18/18 05:55 97.0 75 14 101/62 (75) 96 Capillary Refill : I&O Intake and Output 11/18/18 00:00 Intake Total 540 ml Balance 540 ml Intake Oral 540 ml # Voids 7 # Bowel Movements 1 General: Alert, Oriented X3, Cooperative, No Acute Distress HEENT: Other (several hematomas to right side of face, periorbital) Lungs: Clear to Auscultation, Normal Air Movement Heart: Regular Rate, Normal S1, Normal S2, No Murmurs Extremities: Other (Bilat edema to bilat LE) Skin: No Rashes, Other Neuro: Normal Speech (hematomas to R side of body S/p recent fall) Assessment/Plan Assessment/Plan Assess & Plan/Chief Complaint IRF protocols BM regimen to be maintained to avoid constipation and excessive straining to decreased risk of another fall Pain control Continue using DENIS Wraps BUN 28 & Cr 1.15 on 11/17/18 Monitor BUN and Cr Hgb 8.8 on 11/17/18 Monitor Hgb Elevated Total bilirubin likely 2/2 recent hematomas s/p fall Monitor for improvement of Total bilirubin Continue PT/OT/Group therapy regimen DVT prophylaxis Clinical Quality Measures DVT/VTE Risk/Contraindication: Risk Factor Score Per Nursin RFS Level Per Nursing on Admit: 4+=Very High RACHEAL MEJIA DO 11/18/18 2116: Supervisory-Addendum Brief Verification & Attestation Participated in pt care: history, MDM, physical Personally performed: exam, history, MDM, supervision of care Care discussed with: Medical Student Procedures: n/a Results interpretation: Verified all documentation Verification and Attestation of Medical Student E/M Service A medical student performed and documented this service in my presence. I reviewed and verified all information documented by the medical student and made modifications to such information, when appropriate. I personally performed the physical exam and medical decision making. Racheal Mejia Nov 18, 2018,21:16 [facility] Nov 18, 2018 11:55 RACHEAL MEJIA DO Nov 18, 2018 21:16
--- NOTE | 2018-11-18 13:05 | Occupational Ther Daily Note ---
OT Current Status-Daily Note Subjective No pain reported. Pt. does report weakness with movement. Appearance Pt. up in chair. Declines bathing, but agrees to work with therapy. Mental Status/Objective Patient Orientation: Person, Place Therapy Code Descriptions/Definitions Functional [place] Measure: 0=Not Assessed/NA 4=Minimal Assistance 1=Total Assistance 5=Supervision or Setup 2=Maximal Assistance 6=Modified [place] 3=Moderate Assistance 7=Complete [place] ADL-Treatment Therapy Code Descriptions/Definitions Functional [place] Measure: 0=Not Assessed/NA 4=Minimal Assistance 1=Total Assistance 5=Supervision or Setup 2=Maximal Assistance 6=Modified [place] 3=Moderate Assistance 7=Complete [place] Therapy Quality Codes: 6 Independent with activity with or without an assistive device 5 Patient requires set up or clean up by helper. Patient completes activity by themselves 4 Supervision or touching assist (CGA). [place] provide cues , steadying assist 3 The helper provides less than half the effort to complete the activity 2 The helper provides more than half the effort to complete the activity 1 Dependent. The helper does all the effort to complete an activity 7 Patient refused to complete or attempt activity 9 The patient did not perform the activity before the current illness or inj ury 88 Not attempted due to Medical conditions or safety concerns Grooming (FIM): 2 (Pt. attempted to comb hair, but due to limited right shoulder movement, OT did this for her.) Toileting (FIM): 3 (Pt. requires assist to pull down and up depends, but is able to cleanse front darya area after urination.) Toileting Hygiene (QC): 3 Transfers (B, C, W/C) (FIM): 4 Toilet/Commode Transfer (FIM): 4 Toilet Transfer (QC): 4 Shower Transfer(FIM): 0 (Pt. declines) Other Treatment Pt. declines bathing and dressing this date, stating, "I'm just not up to it." Ambulates with CGA after min assist for sit-stand. Ambulates to toilet. After toileting task, pt. ambulated to therapy gym. However, requires one rest break in between. BP taken as pt. reports feeling dizzy. It is at 105/69. HR at 112. Pt. rested and then felt better. Ambulated to gym. Tolerated 3 bilateral UE exercises with pool noodle, with arm circles forward, backward, and side to side. 10 reps with multiple rest breaks. Ambulated back toward room but required another rest break in dining area. After resting, pt. ambulated the rest of the way back. All needs met. Education OT Patient Education: Correct positioning, Exercise program, Modified ADL techniques, Progress toward Goal/Update tx plan, Purpose of tx/functional activities, Reviewed precautions, Rehab process, Transfer techniques Teaching Recipient: Patient Teaching Methods: Demonstration, Discussion Response to Teaching: Verbalize Understanding, Return Demonstration OT Short Term Goals Short Term Goals Time Frame: Nov 30, 2018 Eating(FIM): 5 Grooming(FIM): 4 Bathing(FIM): 3 Upper Body Dressing(FIM): 3 Lower Body Dressing(FIM): 3 Toileting(FIM): 3 Transfers (B,C,W/C) (FIM): 4 Toilet/Commode Transfer(FIM): 4 Shower Transfer(FIM): 3 Additional Short Term Goals: 1-Demonstrate ADL Tasks, 2-Verbalize Understanding, 3-ImproveStrength/Cintia 1=Demonstrate adherence to instructed precautions during ADL tasks. 2=Patient will verbalize/demonstrate understanding of assistive dev ices/modifications for ADL. 3=Patient will improve strength/tolerance for activity to enable patient to perform ADL's. OT Detention Goals Detention Goals Time Frame: Dec 14, 2018 Eating (FIM): 7 Eating (QC): 6 Groomin Oral Hygiene (QC): 6 Bathing(FIM): 5 Shower/Bathe Self (QC): 4 Upper Body Dressing(FIM): 5 Upper Body Dressing (QC): 4 Lower Body Dressing(FIM): 5 Lower Body Dressing (QC): 4 On/Off Footwear (QC): 4 Toileting(FIM): 6 Toileting Hygiene (QC): 6 Transfers (B,C,W/C) (FIM): 6 Toilet/Commode Transfer(FIM): 6 Toilet/Commode Transfer (QC): 6 Shower Transfer(FIM): 5 Additional Goals: 1-Demonstrate ADL Tasks, 2-Verbalize Understanding, 3- ImproveStrength/Cintia 1=Demonstrate adherence to instructed precautions during ADL tasks. 2=Patient will verbalize/demonstrate understanding of assistive devices/modifications for ADL. 3=Patient will improve strength/tolerance for activity to enable patient to perform ADL's. OT Education/Plan Problem List/Assessment Assessment: Decreased Activ Tolerance, Decreased UE Strength, Dependent Trans fers, Impaired Bed Mobility, Impaired Funct Balance, Impaired I ADL's, Impaired Self-Care Skills, Restricted Funct UE ROM Discharge Recommendations Plan/Recommendations: Continue POC Therapy Discharge Recommendati: Assisted Living Treatment Plan/Plan of Care Treatment,Training & Education: Yes Patient would benefit from OT for education, treatment and training to promote independence in ADL's, mobility, safety and/or upper extremity function for ADL's. Plan of Care: ADL Retraining, Functional Mobility, Group Exercise/Act as Ind, UE Funct Exercise/Act Treatment Duration: Dec 14, 2018 Frequency: At least 5 of 7 days/Wk (IRF) Estimated Hrs Per Day: 1.5 hours per day Agreement: Yes Rehab Potential: Good Time/GCodes Start Time: 11:15 Stop Time: 12:15 Total Time Billed (hr/min): 60 Billed Treatment Time 1, ADL x 15minutes, FA x 45minutes CURT GILLESPIE OT Nov 18, 2018 13:05
--- NOTE | 2018-11-18 14:22 | Occupational Ther Daily Note ---
OT Current Status-Daily Note Subjective Pt alert sitting in chair upon OT arrival. Pt agrees to therapy. No c/o pain at this time. Mental Status/Objective Patient Orientation: Person, Place, Time, Situation Therapy Code Descriptions/Definitions Functional [place] Measure: 0=Not Assessed/NA 4=Minimal Assistance 1=Total Assistance 5=Supervision or Setup 2=Maximal Assistance 6=Modified [place] 3=Moderate Assistance 7=Complete [place] ADL-Treatment Therapy Code Descriptions/Definitions Functional [place] Measure: 0=Not Assessed/NA 4=Minimal Assistance 1=Total Assistance 5=Supervision or Setup 2=Maximal Assistance 6=Modified [place] 3=Moderate Assistance 7=Complete [place] Therapy Quality Codes: 6 Independent with activity with or without an assistive device 5 Patient requires set up or clean up by helper. Patient completes activity by themselves 4 Supervision or touching assist (CGA). [place] provide cues , steadying assist 3 The helper provides less than half the effort to complete the activity 2 The helper provides more than half the effort to complete the activity 1 Dependent. The helper does all the effort to complete an activity 7 Patient refused to complete or attempt activity 9 The patient did not perform the activity before the current illness or injury 88 Not attempted due to Medical conditions or safety concerns Toileting (FIM): 3 (Pt requires assist to cleanse after BM. Pt able to manage clothing with SBA using grabbars.) Toileting Hygiene (QC): 3 Transfers (B, C, W/C) (FIM): 4 (Pt requires FWW to transfer from chair to w/c. CGA for steadying. ) Toilet/Commode Transfer (FIM): 4 (Pt requires arm rest on w/c and grab bar. CGA assist stand to sit <> sit to stand. ) Toilet Transfer (QC): 3 Other Treatment Pt transported to therapy gym. Pt participated in R wrist 3 exercise 3 reps 10x each to increase strength for functional daily tasks. PT took over care of pt in therapy gym. All needs met. OT Short Term Goals Short Term Goals Time Frame: Nov 30, 2018 Eating(FIM): 5 Grooming(FIM): 4 Bathing(FIM): 3 Upper Body Dressing(FIM): 3 Lower Body Dressing(FIM): 3 Toileting(FIM): 3 Transfers (B,C,W/C) (FIM): 4 Toilet/Commode Transfer(FIM): 4 Shower Transfer(FIM): 3 Additional Short Term Goals: 1-Demonstrate ADL Tasks, 2-Verbalize Understanding, 3-ImproveStrength/Cintia 1=Demonstrate adherence to instructed precautions during ADL tasks. 2=Patient will verbalize/demonstrate understanding of assistive devices/modifications for ADL. 3=Patient will improve strength/tolerance for activity to enable patient to perform ADL's. OT Longterm Goals [employer] Goals Time Frame: Dec 14, 2018 Eating (FIM): 7 Eating (QC): 6 Groomin Oral Hygiene (QC): 6 Bathing(FIM): 5 Shower/Bathe Self (QC): 4 Upper Body Dressing(FIM): 5 Upper Body Dressing (QC): 4 Lower Body Dressing(FIM): 5 Lower Body Dressing (QC): 4 On/Off Footwear (QC): 4 Toileting(FIM): 6 Toileting Hygiene (QC): 6 Transfers (B,C,W/C) (FIM): 6 Toilet/Commode Transfer(FIM): 6 Toilet/Commode Transfer (QC): 6 Shower Transfer(FIM): 5 Additional Goals: 1-Demonstrate ADL Tasks, 2-Verbalize Understanding, 3- ImproveStrength/Cintia 1=Demonstrate adherence to instructed precautions during ADL tasks. 2=Patient will verbalize/demonstrate understanding of assistive devices/modifications for ADL. 3=Patient will improve strength/tolerance for activity to enable patient to perform ADL's. OT Education/Plan Problem List/Assessment Assessment: Decreased Activ Tolerance, Decreased UE Strength, Impaired Self- Care Skills Discharge Recommendations Plan/Recommendations: Continue POC Treatment Plan/Plan of Care Patient would benefit from OT for education, treatment and training to promote independence in ADL's, mobility, safety and/or upper extremity function for ADL's. Plan of Care: ADL Retraining, Functional Mobility, Group Exercise/Act as Ind, UE Funct Exercise/Act Treatment Duration: Dec 14, 2018 Frequency: At least 5 of 7 days/Wk (IRF) Estimated Hrs Per Day: 1.5 hours per day Agreement: Yes Rehab Potential: Good Time/GCodes Start Time: 13:00 Stop Time: 13:30 Total Time Billed (hr/min): 30 Billed Treatment Time 1 visit- ADL 1 ( 15 min) EX 1 ( 15 min) PAULINO MEJIA Nov 18, 2018 14:22
--- NOTE | 2018-11-18 15:11 | Physical Therapy Daily Note ---
PT Daily Note-Current Subjective Agrees to PT although notes she is tired this afternoon. Mental Status Patient Orientation: Person, Place, Time, Situation Transfers Therapy Code Descriptions/Definitions Functional [place] Measure: 0=Not Assessed/NA 4=Minimal Assistance 1=Total Assistance 5=Supervision or Setup 2=Maximal Assistance 6=Modified [place] 3=Moderate Assistance 7=Complete [place] Therapy Quality Codes: 6 Independent with activity with or without an assistive device 5 Patient requires set up or clean up by helper. Patient completes activity by themselves 4 Supervision or touching assist (CGA). [place] provide cues , steadying assist 3 The helper provides less than half the effort to complete the activity 2 The helper provides more than half the effort to complete the activity 1 Dependent. The helper does all the effort to complete an activity 7 Patient refused to complete or attempt activity 9 The patient did not perform the activity before the current illness or injury 88 Not attempted due to Medical conditions or safety concerns Transfers (B, C, W/C) (FIM): 4 Sit to/from Stand: 4 (CG-min assist.) multiple sit to stand transfers with CG-min assist from varied surfaces. Toileted with min assist to transfer off the toilet. Max assist darya care and mod assist with clothing. Weight Bearing Full Weight Bearing Full Weight Bearing Gait Training Does the Patient Walk?: Yes Distance (FIM): 9=502-65 ft Distance: 50 ft x 2 Gait Assistive Device: FWW Exercises Seated Therapy Exercises: Ankle pumps, Long arc quads, Hip flexion, Hip abd/add Seated Reps: 15 (to promote LE strength for transfers and gait.) NuStep Minutes: 15 (For LE ROM and functonal strength. Pt reports post this, she felt better and her joints were looser.) Assessment Current Status: Good Progress Pt is making functional gains. Pt motivated and compliant. PT Short Term Goals Short Term Goals Time Frame: Dec 01, 2018 Transfers (B,C,W/C) (FIM): 4 Gait (FIM): 4 Distance (FIM): 3=150 ft Gait Distance Comment: 150 Gait Level of Assist: 4 Gait Assistive Device: FWW PT Phone Screener Goals Phone Screener Goals PT Senior Living Goals Time Frame: Dec 01, 2018 Transfers (B,C,W/C) (FIM): 6 Sit to Lying (QC): 6 Lying-Sitting on Side/Bed(QC): 6 Sit to Stand (QC): 6 Rollin Roll Left to Right (QC): 6 Chair/Ykw-ay-Knbqc Xfer(QC): 6 Car Transfer (QC): 5 Gait (FIM): 5 Gait distance (FIM): 3=150 ft Distance: 150 Walk 10 feet (QC): 6 Walk 10ft-Uneven Surface(QC): 6 Walk 50ft with 2 Turns (QC): 6 Walk 150 ft (QC): 6 Gait Assistive Device: FWW Wheel 50 feet with 2 turns (QC: 9 Stairs (FIM): 9 1 Step (curb) (QC): 5 4 Steps (QC): 9 12 Steps (QC): 9 Stairs Level Of Assist: 5 Picking up an Object (QC): 9 PT Plan Problem List Problem List: Activity Tolerance, Functional Strength, Safety, Balance, Gait, Transfer, Bed Mobility Treatment/Plan Treatment Plan: Continue Plan of Care Treatment Plan: Bed Mobility, Education, Functional Activity Cintia, Functional Strength, Gait, Safety, Therapeutic Exercise Treatment Duration: Dec 01, 2018 Frequency: At least 5 of 7 days/Wk (IRF) Estimated Hrs Per Day: 1.5 hours per day Patient and/or Family Agrees t: Yes Time/GCodes Time In: 1345 Time Out: 1430 Total Billed Treatment Time: 45 Total Billed Treatment visit ex 30 gt 15 PAULINO RAMÍREZ PT Nov 18, 2018 15:11
[2018-11-18 17:04] VITALS: BP 95/54
--- NOTE | 2018-11-18 18:54 | Progress Note - Hospitalist ---
[facility] 11/18/18 846: Progress Note Pt is a 81yoWF PMH of multiple falls in the past. Pt is here s/p another fall. On inquiry regarding the events that lead up to the fall, Pt states she had been sitting and straining for a long time on the toilet on the day of the fall, and when she stood up her vision "went black" and she fell face down on her Right side; denies any preceding dizziness. Denies LOC. Pt lives alone and notes she was on the floor for 3 hrs before help arrived. Pt has no or children, has a niece that comes around from time to time. She is considering getting a fall alarm system to avoid similar situation incase of another fall. pt notes she has many friends but they live in different cities and she mostly keeps up with via phone calls; does not have any support system aside from that. Pt eats cereal every morning with 1% milk, maybe a banana or some other snack for lunch and dinner; her diet consist of mostly carbs and she does not get much vegetables or protein in her diet; which has lead to constipation and prolonged straining that lead up to her most recent fall. pt lives in a ground floor apartment with wooden floors and minimal rugs/carpeting; there are no stairs that she has to climb in order to enter her home. Has a walk-in shower with a chair and several grab rails. Prior to hospitalization pt used a Quad Cane to ambulate and on rare occasions borrowed her neighbor's walker. Her biggest concern for when she gets d/c home is help with ADLs and food. She has had Home Health in the past when she injured her left humerus and would like to get set up with it again after rehab. RACHEAL MEJIA DO 11/18/182116: Supervisory-Addendum Brief Verification & Attestation Participated in pt care: history, MDM, physical Personally performed: exam, history, MDM, supervision of care Care discussed with: Medical Student Procedures: n/a Results interpretation: Verified all documentation Verification and Attestation of Medical Student E/M Service A medical student performed and documented this service in my presence. I reviewed and verified all information documented by the medical student and made modifications to such information, when appropriate. I personally performed the physical exam and medical decision making. Racheal Mejia, Nov 18, 2018,21:17 [facility] Nov 18, 2018 18:54 RACHEAL MEJIA DO Nov 18, 2018 21:17
[2018-11-18] MEDS: POLYETHYLENE GLYCOL 17 GM (MIRALAX) PACK PO SCH (20:06)
[2018-11-19 05:33] VITALS: BP 102/65
[2018-11-19] MEDS: PANTOPRAZOLE 40 MG (PROTONIX) TAB PO SCH (06:00)
[2018-11-19] MEDS: KCL 10 MEQ TAB (MICRO K) PO SCH (06:00)
[2018-11-19] MEDS: MICONAZOLE 2% POWDER (DESENEX AF) 90 GM TOP SCH ×2 (08:11→20:27)
[2018-11-19] MEDS: FUROSEMIDE 20 MG (LASIX) TAB PO SCH (08:11)
[2018-11-19] MEDS: ACETAMINOPHEN 325 MG TABLET PO PRN ×2 (08:12→14:31)
--- NOTE | 2018-11-19 08:16 | Progress Note ---
[facility] 11/19/18 0816: Subjective Date Seen by a Provider: Nov 19, 2018 Time Seen by a Provider: 07:00 Subjective/Events-last exam Pt seen this morning as she was eating breakfast and watching TV. Pt is pleasant and interactive. slept well. Had an episode of urinary incontinence last night, however states she has had this problem prior to hospitalizations. Stable vitals. Remains Pain free. Pt has swelling in bilat LE and states she has not worn her wide DENIS warps at all since yesterday. has not had any BMs today or yesterday and states she did not take her Miralax last night because it would not let her sleep well with her stomach rumbling all night. No much change observed in the state of her hematomas s/p fall and they are still quite TTP. Pt has no other complaints at this time. I have her latest reviewed her Labs/Meds/therapy notes. Review of Systems General: No Chills, No Night Sweats, No Fatigue, No Malaise HEENT: No Head Aches Pulmonary: No Dyspnea, No Cough, No Pleuritic Chest Pain Cardiovascular: No: Chest Pain, Palpitations, Orthopnea, Paroxysmal Noc. Dyspnea, Edema, Lt Headedness Gastrointestinal: Other; No: Nausea, Vomiting Genitourinary: Incontinence Objective Exam Last Set of Vital Signs Vital Signs Date Time Temp Pulse Resp B/P (MAP) Pulse Ox O2 Delivery O2 Flow Rate FiO2 11/19/18 05:33 97.5 70 16 102/65 (77) 97 Room Air Capillary Refill : I&O Intake and Output 11/19/18 00:00 Intake Total 670 ml Balance 670 ml Intake Oral 670 ml # Voids 4 # Bowel Movements 1 General: Alert, Oriented X3, Cooperative, No Acute Distress HEENT: Other (hematomas to Right face and neck) Lungs: Clear to Auscultation, Normal Air Movement Heart: Regular Rate, Normal S1, Normal S2, No Murmurs Extremities: No Clubbing, No Cyanosis, No Edema Assessment/Plan Assessment/Plan Assess & Plan/Chief Complaint IRF protocols BM regimen to be maintained to avoid constipation and excessive straining to decreased risk of another fall Pain control Use DENIS Wraps more diligently Monitor BUN and Cr Monitor Hgb Monitor for improvement of Total bilirubin Continue PT/OT/Group therapy regimen DVT prophylaxis. Clinical Quality Measures DVT/VTE Risk/Contraindication: Risk Factor Score Per Nursin RFS Level Per Nursing on Admit: 4+=Very High RACHEAL MEJIA DO 11/20/18 0815: Supervisory-Addendum Brief Verification & Attestation Participated in pt care: history, MDM, physical Personally performed: exam, history, MDM, supervision of care Care discussed with: Medical Student Procedures: n/a Results interpretation: Verified all documentation Verification and Attestation of Medical Student E/M Service A medical student performed and documented this service in my presence. I reviewed and verified all information documented by the medical student and made modifications to such information, when appropriate. I personally performed the physical exam and medical decision making. Racheal Mejia, Nov 20, 2018,08:15 [facility] Nov 19, 2018 08:16 RACHEAL MEJIA DO Nov 20, 2018 08:15
--- NOTE | 2018-11-19 09:30 | Physical Therapy Daily Note ---
PT Daily Note-Current Subjective Pt. in BSC and very grateful upon entering room "I can do anything now" Pain Location: No Pain Reported Comment: min c/o fatigue Mental Status Patient Orientation: Normal For Age Transfers Therapy Code Descriptions/Definitions Functional [place] Measure: 0=Not Assessed/NA 4=Minimal Assistance 1=Total Assistance 5=Supervision or Setup 2=Maximal Assistance 6=Modified [place] 3=Moderate Assistance 7=Complete [place] Therapy Quality Codes: 6 Independent with activity with or without an assistive device 5 Patient requires set up or clean up by helper. Patient completes activity by themselves 4 Supervision or touching assist (CGA). [place] provide cues , steadying assist 3 The helper provides less than half the effort to complete the activity 2 The helper provides more than half the effort to complete the activity 1 Dependent. The helper does all the effort to complete an activity 7 Patient refused to complete or attempt activity 9 The patient did not perform the activity before the current illness or injury 88 Not attempted due to Medical conditions or safety concerns Transfers (B, C, W/C) (FIM): 5 Scootin Rollin Supine to/from Sit: 5 Sit to/from Stand: 5 needs instruction joe for rolling to side for sup to side to sit TRF, takes considerable time but manages well with instruction Weight Bearing Full Weight Bearing Full Weight Bearing Gait Training Gait (FIM): 5 Distance (FIM): 3=150 ft (160,100,55) Gait Level of Assist: 5 Gait Persons Needed: 1 Gait Assistive Device: FWW slow, heavy wt bearing on UEs but improving gradually Exercises Supine Ex: Ankle pumps, Quad Set, Rolling, Glut sets, Heel Slides, Scooting, Straight leg raise, Hip abd/add Supine Reps: 15 NuStep Minutes: 8 NuStep Workload: 2 Treatments needs assist for clean up after toileting but only min assist for pants up Assessment Current Status: Good Progress PT Short Term Goals Short Term Goals Time Frame: Dec 01, 2018 Transfers (B,C,W/C) (FIM): 4 Gait (FIM): 4 Distance (FIM): 3=150 ft Gait Distance Comment: 150 Gait Level of Assist: 4 Gait Assistive Device: FWW PT Nursing Home Goals [employer] Associate Goals PT [employer] Associate Goals Time Frame: Dec 01, 2018 Transfers (B,C,W/C) (FIM): 6 Sit to Lying (QC): 6 Lying-Sitting on Side/Bed(QC): 6 Sit to Stand (QC): 6 Rollin Roll Left to Right (QC): 6 Chair/Mdd-lw-Fclaa Xfer(QC): 6 Car Transfer (QC): 5 Gait (FIM): 5 Gait distance (FIM): 3=150 ft Distance: 150 Walk 10 feet (QC): 6 Walk 10ft-Uneven Surface(QC): 6 Walk 50ft with 2 Turns (QC): 6 Walk 150 ft (QC): 6 Gait Assistive Device: FWW Wheel 50 feet with 2 turns (QC: 9 Stairs (FIM): 9 1 Step (curb) (QC): 5 4 Steps (QC): 9 12 Steps (QC): 9 Stairs Level Of Assist: 5 Picking up an Object (QC): 9 PT Plan Treatment/Plan Treatment Plan: Continue Plan of Care Treatment Plan: Bed Mobility, Education, Functional Activity Cintia, Functional Strength, Gait, Safety, Therapeutic Exercise Treatment Duration: Dec 01, 2018 Frequency: At least 5 of 7 days/Wk (IRF) Estimated Hrs Per Day: 1.5 hours per day Patient and/or Family Agrees t: Yes Safety Risks/Education Patient Education: Gait Training, Transfer Techniques, Correct Positioning, Disease Process, Safety Issues Teaching Recipient: Patient Teaching Methods: Demonstration, Discussion Response to Teaching: Verbalize Understanding, Return Demonstration, Reinforcement Needed Time/GCodes Time In: 845 Time Out: 930 Total Billed Treatment Time: 45 Total Billed Treatment 1,GT20m,FA10,.EX15m ZION COLEY [employer] LIBRARY ASSISTANT Nov 19, 2018 09:30
--- NOTE | 2018-11-19 09:55 | PM&R Progress Note ---
Subjective HPI/CC On Admission Date Seen by Provider: Nov 19, 2018 Time Seen by Provider: 09:00 CC: Debility following fall HPI: This is a 81yoWF clinic Pt of Dr. 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 Lower extremity edema was managed with low-dose Lasix and Potassium along with wide susan wraps. Bowels returned back to normal after multiple laxatives that resolved the issue. Her prior level of functioning was with the use of assistive devices at home but she has a history of multiple falls and will inquire if she is willing to go to assistive living which would serve her a lot better and provide her with a little bit more support but she likely will want to return home to live independently so will need to aggressively treat her in need to regain hr independence of ADLs and ambulation in order to return home. Subjective/Events-last exam Pt doing very well overall Improved enough to be ambulating wet and she is working hard Lower extremity edema will be managed with compression stockings Overall feels pretty good Pain is well controlled on Tylenol Bowels are moving well with complete evacuation with holding the Miralax even Overall feels good about her progress Lower extremity edema will be managed with wide susan wraps, Lasix and potassium. Conferred with RN Reviewed therapy notes Checked meds and labs Review of Systems General: Fatigue Gastrointestinal: Constipation Objective Exam Vital Signs Vital Signs Date Time Temp Pulse Resp B/P (MAP) Pulse Ox O2 Delivery O2 Flow Rate FiO2 11/20/18 05:30 97.2 78 16 101/63 (76) 94 Room Air Capillary Refill : General Appearance: No Apparent Distress, WD/WN, Chronically ill, Obese HEENT: PERRL/EOMI, Pharynx Normal, Moist Mucous Membranes, Other (ecchymosis right facial contusion improved) Neck: Full Range of Motion, Normal Inspection, Non Tender, Supple Respiratory: Chest Non Tender, Lungs Clear, Normal Breath Sounds, No Accessory Muscle Use, No Respiratory Distress Cardiovascular: Regular Rate, Rhythm, No Gallop, No JVD, No Murmur Gastrointestinal: Normal Bowel Sounds, No Organomegaly, No Pulsatile Mass, Non Tender, Soft Back: Normal Inspection, No CVA Tenderness, No Vertebral Tenderness Extremity: Normal Capillary Refill, Normal Inspection, Normal Range of Motion, Non Tender, No Calf Tenderness, Pedal Edema Neurologic/Psychiatric: Alert, Oriented x3, No Motor/Sensory Deficits, Normal Mood/Affect Skin: Normal Color, Warm/Dry Lymphatic: No Adenopathy Results/Procedures Lab Patient resulted labs reviewed. FIM Transfers Therapy Code Descriptions/Definitions Functional [place] Measure: 0=Not Assessed/NA 4=Minimal Assistance 1=Total Assistance 5=Supervision or Setup 2=Maximal Assistance 6=Modified [place] 3=Moderate Assistance 7=Complete [place] Therapy Quality Codes: 6 Independent with activity with or without an assistive device 5 Patient requires set up or clean up by helper. Patient completes activity by themselves 4 Supervision or touching assist (CGA). [place] provide cues , steadying assist 3 The helper provides less than half the effort to complete the activity 2 The helper provides more than half the effort to complete the activity 1 Dependent. The helper does all the effort to complete an activity 7 Patient refused to complete or attempt activity 9 The patient did not perform the activity before the current illness or injury 88 Not attempted due to Medical conditions or safety concerns Transfers (B, C, W/C) (FIM): 5 Scootin Rollin Roll Left to Right (QC): 3 Supine to/from Sit: 5 Sit to/from Stand: 5 Sit to Lying (QC): 3 Sit to Stand (QC): 3 Chair/Rae-xh-Mhacr Xfer(QC): 4 Bed to/from Chair: 4 Car Transfer (QC): 3 Gait Training Does the Patient Walk?: Yes Gait (FIM): 5 Distance (FIM): 3=150 ft (160,100,55) Distance: 50 ft x 2 Walk 10 feet (QC): 4 Walk 50 ft with 2 Turns(QC): 4 Walk 150 ft (QC): 1 Walking 10ft/uneven surface-QC: 4 Gait Level of Assist: 5 Gait Persons Needed: 1 Gait Assistive Device: FWW Wheelchair Training Does the Pt Use a Wheelchair?: Yes Wheelchair (FIM): 1 Wheelchair Distance: 1=up to 49 ft (10ftx2) Wheelchair Level of Assist: 2 Type of Wheelchair: Manual Stair Training Stairs (FIM): 0 #of Steps: 1 1 Step (curb) (QC): 3 4 Steps (QC): 9 12 Steps (QC): 09 Level of Assist: 3 Balance Picking up an Object (QC): 9 Mental Status/Objective Comprehension: 7 Expression: 7 Social Interaction: 7 Problem Solvin Memory: 7 ADL-Treatment Feedin Eating (QC): 7 Groomin (Pt. attempted to comb hair, but due to limited right shoulder movement, OT did this for her.) Oral Hygiene (QC): 7 Bathin Shower/Bathe Self (QC): 2 Upper Extremity Dressin Upper Body Dressing (QC): 3 Lower Extremity Dressin Lower Body Dressing (QC): 2 On/Off Footwear (QC): 3 Toiletin (Pt requires assist to cleanse after BM. Pt able to manage clothing with SBA using grabbars.) Toileting Hygiene (QC): 3 Toilet/Commode Transfer: 4 (Pt requires arm rest on w/c and grab bar. CGA assist stand to sit <> sit to stand. ) Toilet Transfer (QC): 3 Shower: 0 (Pt. declines) Assessment/Plan Assessment and Plan Assess & Plan/Chief Complaint Plan: IRF protocol Pain control with APAP Fall risk prevention BM regimen Voltaren gel for right shoulder pain Xray right shoulder ok and if needed will consult [facility]. (1) Debility Status: Acute (2) Acute renal failure Status: Acute Qualifiers: Acute renal failure type: unspecified Qualified Codes: N17.9 - Acute kidney failure, unspecified (3) Dehydration Status: Acute (4) Facial hematoma Status: Acute (5) Nausea Status: Acute (6) Fall Status: Acute Qualifiers: Encounter type: subsequent encounter Qualified Codes: W19.XXXD - Unspecified fall, subsequent encounter (7) Obesity Status: Chronic Qualifiers: Obesity type: due to excess calories Body mass index: BMI 40.0-44.9 (8) Traumatic hematoma of forehead Status: Acute Qualifiers: Encounter type: subsequent encounter Qualified Codes: S00.83XD - Contusion of other part of head, subsequent encounter (9) Edema Status: Acute Qualifiers: Edema type: localized Qualified Codes: R60.0 - Localized edema (10) Depression Status: Chronic Qualifiers: Depression Type: unspecified Qualified Codes: F32.9 - Major depressive disorder, single episode, unspecified JOSEY MEJIA DO Nov 19, 2018 09:55
--- NOTE | 2018-11-19 10:27 | NUR ---
Pastoral care visit.
--- NOTE | 2018-11-19 11:44 | Occupational Ther Daily Note ---
OT Current Status-Daily Note Subjective Pt sitting in chair, agrees to treatment. Pt states she is feeling better today. Reports 2/10 pain in right shoulder. Mental Status/Objective Therapy Code Descriptions/Definitions Functional [place] Measure: 0=Not Assessed/NA 4=Minimal Assistance 1=Total Assistance 5=Supervision or Setup 2=Maximal Assistance 6=Modified [place] 3=Moderate Assistance 7=Complete [place] ADL-Treatment Pt declined shower today, but would like sponge bath. Pt doffed nightgown with SBA and verbal cues for technique secondary to right shoulder pain. Upper body bathing completed with SBA and increased time. Pt ablet to wash upper legs, but requires assist for buttocks. Lower legs not addressed as pt has susan wraps in place. Don pullover shirt with min assist and skilled cues for technique. Pt used onyx chip terrazzo worker to start Depends and pants over feet with min assist. Min assist to pull up over hips in standing. Transfer to [facility] with CGA using FWW. Pt able to complete toilieting hygiene, but requires min assist with clothing management. Grooming tasks completed seated in chair. Pt required mod assist to comb hair secondary to pain in right shoulder. Pt brushed teeth with SBA. Pt requires occasional rest breaks throughout treatment. Pt sitting in chair with needs met after session. Therapy Code Descriptions/Definitions Functional [place] Measure: 0=Not Assessed/NA 4=Minimal Assistance 1=Total Assistance 5=Supervision or Setup 2=Maximal Assistance 6=Modified [place] 3=Moderate Assistance 7=Complete [place] Therapy Quality Codes: 6 Independent with activity with or without an assistive device 5 Patient requires set up or clean up by helper. Patient completes activity by themselves 4 Supervision or touching assist (CGA). [place] provide cues , steadying assist 3 The helper provides less than half the effort to complete the activity 2 The helper provides more than half the effort to complete the activity 1 Dependent. The helper does all the effort to complete an activity 7 Patient refused to complete or attempt activity 9 The patient did not perform the activity before the current illness or injury 88 Not attempted due to Medical conditions or safety concerns Grooming (FIM): 4 Oral Hygiene (QC): 4 Upper Body (FIM): 4 Lower Body Dressing (FIM): 4 Lower Body Dressing (QC): 3 Toilet/Commode Transfer (FIM): 4 (CGA) OT Short Term Goals Short Term Goals Time Frame: Nov 30, 2018 Eating(FIM): 5 Grooming(FIM): 4 Bathing(FIM): 3 Upper Body Dressing(FIM): 3 Lower Body Dressing(FIM): 3 Toileting(FIM): 3 Transfers (B,C,W/C) (FIM): 4 Toilet/Commode Transfer(FIM): 4 Shower Transfer(FIM): 3 Additional Short Term Goals: 1-Demonstrate ADL Tasks, 2-Verbalize Understanding, 3-ImproveStrength/Cintia 1=Demonstrate adherence to instructed precautions during ADL tasks. 2=Patient will verbalize/demonstrate understanding of assistive dev ices/modifications for ADL. 3=Patient will improve strength/tolerance for activity to enable patient to perform ADL's. OT Candle Wrapping Machine Operator Goals Senior Care Goals Time Frame: Dec 14, 2018 Eating (FIM): 7 Eating (QC): 6 Groomin Oral Hygiene (QC): 6 Bathing(FIM): 5 Shower/Bathe Self (QC): 4 Upper Body Dressing(FIM): 5 Upper Body Dressing (QC): 4 Lower Body Dressing(FIM): 5 Lower Body Dressing (QC): 4 On/Off Footwear (QC): 4 Toileting(FIM): 6 Toileting Hygiene (QC): 6 Transfers (B,C,W/C) (FIM): 6 Toilet/Commode Transfer(FIM): 6 Toilet/Commode Transfer (QC): 6 Shower Transfer(FIM): 5 Additional Goals: 1-Demonstrate ADL Tasks, 2-Verbalize Understanding, 3- ImproveStrength/Cintia 1=Demonstrate adherence to instructed precautions during ADL tasks. 2=Patient will verbalize/demonstrate understanding of assistive devices/modifications for ADL. 3=Patient will improve strength/tolerance for activity to enable patient to perform ADL's. OT Education/Plan Discharge Recommendations Plan/Recommendations: Continue POC Treatment Plan/Plan of Care Patient would benefit from OT for education, treatment and training to promote independence in ADL's, mobility, safety and/or upper extremity function for ADL's. Plan of Care: ADL Retraining, Functional Mobility, Group Exercise/Act as Ind, UE Funct Exercise/Act Treatment Duration: Dec 14, 2018 Frequency: At least 5 of 7 days/Wk (IRF) Estimated Hrs Per Day: 1.5 hours per day Agreement: Yes Rehab Potential: Good Time/GCodes Start Time: 09:30 Stop Time: 10:30 Total Time Billed (hr/min): 60 Billed Treatment Time 1 visit, ADLx4(60minutes) VANNA BRAGG OT Nov 19, 2018 11:44
--- NOTE | 2018-11-19 13:08 | Therapy Group Daily Note ---
Therapy Daily Group Note Patient Education Topic Energy Cons, Exercises Exercises UE Exercise Session Ratio (pt:therapist): 4:1 Goal of Session: Education on ARU Expectations, Energy Conservation Tech., Home Safety Strategies, Memory Strategies, UE/LE Strengthing, Safety with Transfers Goal Met for this Session: Yes Pt Benefit of Group: Contributions to Others, F/U Use of Strategies @Home, Increased Functional Safety, Increased Functional Strength, Improved Cognition, Recognition of Peers, Socialization Other/Notes Pt transported via w/c to [facility] for OT group. Group consisted of introductions (name and fun fact), socialization, description/expectations of ARU, benefits of wearing wrist weights during activities, and energy conservation techniques including the 4'P with handout provided Pt able to introduced self appropriately and actively listened to peers. Pt acknowledged understanding of educational topics by providing examples of how to incorporate trained techniques within daily activities. pt then participate in table top game with peers for socialization wearing 2# wrist weights to increase UE strength and activity tolerance for daily activities. After therapy, pt requested to stay in w/c in room. Call light/phone in reach. All needs met in room. Start Time: 10:30 Stop Time: 11:45 Total Billed Treatment GRP 75 minutes EMANUEL CURRAN OT Nov 19, 2018 13:08
[2018-11-19 17:02] VITALS: BP 107/67
[2018-11-19] MEDS: POLYETHYLENE GLYCOL 17 GM (MIRALAX) PACK PO SCH (20:27)
[2018-11-20 05:30] VITALS: BP 101/63
[2018-11-20] MEDS: PANTOPRAZOLE 40 MG (PROTONIX) TAB PO SCH (06:26)
[2018-11-20] MEDS: KCL 10 MEQ TAB (MICRO K) PO SCH (06:26)
--- NOTE | 2018-11-20 07:58 | Physical Therapy Daily Note ---
PT Daily Note-Current Subjective Pt agreeable to PT session this am. States her head has been better and not having any pain, just some soreness all over Pain Numeric Pain Scale: 0-No Pain Appearance Upon arrival, pt in bed just finished breakfast. Pt requesting and assisted to restroom during session. At end of session pt sitting up in recliner with call light, phone and bedside table within reach. Mental Status Patient Orientation: Person, Place, Time, Eyes Open, Situation, Normal For Age Transfers Therapy Code Descriptions/Definitions Functional [place] Measure: 0=Not Assessed/NA 4=Minimal Assistance 1=Total Assistance 5=Supervision or Setup 2=Maximal Assistance 6=Modified [place] 3=Moderate Assistance 7=Complete [place] Therapy Quality Codes: 6 Independent with activity with or without an assistive device 5 Patient requires set up or clean up by helper. Patient completes activity by themselves 4 Supervision or touching assist (CGA). [place] provide cues , steadying assist 3 The helper provides less than half the effort to complete the activity 2 The helper provides more than half the effort to complete the activity 1 Dependent. The helper does all the effort to complete an activity 7 Patient refused to complete or attempt activity 9 The patient did not perform the activity before the current illness or injury 88 Not attempted due to Medical conditions or safety concerns Transfers (B, C, W/C) (FIM): 5 Scootin Supine to/from Sit: 5 (HOB elevated. Pt does not sleep in bed at all at home, states she always sleeps in recliner) Sit to/from Stand: 5 (SBA, several unsuccessful attempts from low bed, able to rise upon 1st attempt from EOB slightly elevated. Able to rise from toilet with use of grab bars but with several attempts. stand to sit transfers with proper hand placement. Sit to stand from NuStep SBA after several attempts) several unsuccessful attempts to stand from EOB at lowest position, elevated bed height just slightly and pt able to stand upon 1st attempt. Able to follow inst for safety and correct hand placement during sit to and from stand transfers EOB, chair, Nustep and toilet Weight Bearing Full Weight Bearing Full Weight Bearing Gait Training Does the Patient Walk?: Yes Gait (FIM): 5 Distance (FIM): 1=546-02 ft Distance: 100 x2 Gait Level of Assist: 5 (SBA) Gait Persons Needed: 1 Gait Assistive Device: FWW fwd flexed posture, slow, lateral sway, decreased step length, height, heel strike and toe off, no LOB or unsteadiness Exercises Seated Therapy Exercises: Ankle pumps, Sit to stand, Long arc quads, Hip flexio n NuStep Minutes: 10 NuStep Workload: 3 (Seat 9, L arm 9, only occasional use of R arm due to not wanting to aggrevate the shoulder) Treatments bed mobility, transfers, gait, safety, balance, strength, activity tolerance, functional mobility, education, toileting Assessment Current Status: Good Progress PT Short Term Goals Short Term Goals Time Frame: Dec 01, 2018 Transfers (B,C,W/C) (FIM): 4 Gait (FIM): 4 Distance (FIM): 3=150 ft Gait Distance Comment: 150 Gait Level of Assist: 4 Gait Assistive Device: FWW PT Wind Instrument Repairer Goals Correction Goals PT Wind Instrument Repairer Goals Time Frame: Dec 01, 2018 Transfers (B,C,W/C) (FIM): 6 Sit to Lying (QC): 6 Lying-Sitting on Side/Bed(QC): 6 Sit to Stand (QC): 6 Rollin Roll Left to Right (QC): 6 Chair/Uza-pr-Ztcyq Xfer(QC): 6 Car Transfer (QC): 5 Gait (FIM): 5 Gait distance (FIM): 3=150 ft Distance: 150 Walk 10 feet (QC): 6 Walk 10ft-Uneven Surface(QC): 6 Walk 50ft with 2 Turns (QC): 6 Walk 150 ft (QC): 6 Gait Assistive Device: FWW Wheel 50 feet with 2 turns (QC: 9 Stairs (FIM): 9 1 Step (curb) (QC): 5 4 Steps (QC): 9 12 Steps (QC): 9 Stairs Level Of Assist: 5 Picking up an Object (QC): 9 PT Plan Treatment/Plan Treatment Plan: Continue Plan of Care Treatment Plan: Bed Mobility, Education, Functional Activity Cintia, Functional Strength, Gait, Safety, Therapeutic Exercise Treatment Duration: Dec 01, 2018 Frequency: At least 5 of 7 days/Wk (IRF) Estimated Hrs Per Day: 1.5 hours per day Patient and/or Family Agrees t: Yes Safety Risks/Education Patient Education: Gait Training, Transfer Techniques, Safety Issues Teaching Recipient: Patient Teaching Methods: Demonstration, Discussion Response to Teaching: Verbalize Understanding, Return Demonstration Time/GCodes Time In: 757 Time Out: 851 Total Billed Treatment Time: 54 Total Billed Treatment 1 visit, FA x2 units, GT x1 unit, EX x1 unit KEERTHI BASHIR PTA Nov 20, 2018 07:58
[2018-11-20] MEDS: FUROSEMIDE 20 MG (LASIX) TAB PO SCH (08:23)
[2018-11-20] MEDS: MICONAZOLE 2% POWDER (DESENEX AF) 90 GM TOP SCH ×2 (08:23→21:38)
[2018-11-20] MEDS: ACETAMINOPHEN 325 MG TABLET PO PRN (09:39)
--- NOTE | 2018-11-20 15:41 | PM&R Progress Note ---
Subjective HPI/CC On Admission Date Seen by Provider: Nov 20, 2018 Time Seen by Provider: 12:13 CC: Debility following fall HPI: This is a 81yoWF clinic Pt of Dr. 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 Lower extremity edema was managed with low-dose Lasix and Potassium along with wide denis wraps. Bowels returned back to normal after multiple laxatives that resolved the issue. Her prior level of functioning was with the use of assistive devices at home but she has a history of multiple falls and will inquire if she is willing to go to assistive living which would serve her a lot better and provide her with a little bit more support but she likely will want to return home to live independently so will need to aggressively treat her in need to regain hr independence of ADLs and ambulation in order to return home. Subjective/Events-last exam Pt doing very well overall Improved enough to be ambulating wet and she is working hard and wants to go [facility] to live independently Lower extremity edema will be managed with compression stockings after DENIS wraps make more progress Overall feels pretty good Pain is well controlled on Tylenol Bowels are moving well with complete evacuation the day previous Overall feels good about her progress Lower extremity edema will be managed with wide denis wraps, Lasix and potassium. Conferred with RN Reviewed therapy notes Checked meds and labs Review of Systems Musculoskeletal: leg pain Objective Exam Vital Signs Vital Signs Date Time Temp Pulse Resp B/P (MAP) Pulse Ox O2 Delivery O2 Flow Rate FiO2 11/21/18 09:59 Room Air 11/21/18 05:46 98.3 76 16 108/66 (80) 96 Capillary Refill : General Appearance: No Apparent Distress, WD/WN, Chronically ill, Obese HEENT: PERRL/EOMI, Pharynx Normal, Moist Mucous Membranes, Other (ecchymosis right facial contusion improved) Neck: Full Range of Motion, Normal Inspection, Non Tender, Supple Respiratory: Chest Non Tender, Lungs Clear, Normal Breath Sounds, No Accessory Muscle Use, No Respiratory Distress Cardiovascular: Regular Rate, Rhythm, No Gallop, No JVD, No Murmur Gastrointestinal: Normal Bowel Sounds, No Organomegaly, No Pulsatile Mass, Non Tender, Soft Back: Normal Inspection, No CVA Tenderness, No Vertebral Tenderness Extremity: Normal Capillary Refill, Normal Inspection, Normal Range of Motion, Non Tender, No Calf Tenderness, Pedal Edema Neurologic/Psychiatric: Alert, Oriented x3, No Motor/Sensory Deficits, Normal Mood/Affect Skin: Normal Color, Warm/Dry Lymphatic: No Adenopathy Results/Procedures Lab Patient resulted labs reviewed. FIM Transfers Therapy Code Descriptions/Definitions Functional [place] Measure: 0=Not Assessed/NA 4=Minimal Assistance 1=Total Assistance 5=Supervision or Setup 2=Maximal Assistance 6=Modified [place] 3=Moderate Assistance 7=Complete [place] Therapy Quality Codes: 6 Independent with activity with or without an assistive device 5 Patient requires set up or clean up by helper. Patient completes activity by themselves 4 Supervision or touching assist (CGA). [place] provide cues , steadying assist 3 The helper provides less than half the effort to complete the activity 2 The helper provides more than half the effort to complete the activity 1 Dependent. The helper does all the effort to complete an activity 7 Patient refused to complete or attempt activity 9 The patient did not perform the activity before the current illness or injury 88 Not attempted due to Medical conditions or safety concerns Transfers (B, C, W/C) (FIM): 5 Scootin Rollin Roll Left to Right (QC): 3 Supine to/from Sit: 5 (HOB elevated. Pt does not sleep in bed at all at home, states she always sleeps in recliner) Sit to/from Stand: 5 (SBA, several unsuccessful attempts from low bed, able to rise upon 1st attempt from EOB slightly elevated. Able to rise from toilet with use of grab bars but with several attempts. stand to sit transfers with proper hand placement. Sit to stand from NuStep SBA after several attempts) Sit to Lying (QC): 3 Sit to Stand (QC): 3 Chair/Kbx-na-Kbowy Xfer(QC): 4 Bed to/from Chair: 4 Car Transfer (QC): 3 Gait Training Does the Patient Walk?: Yes Gait (FIM): 5 Distance (FIM): 1=911-63 ft Distance: 100 x2 Walk 10 feet (QC): 4 Walk 50 ft with 2 Turns(QC): 4 Walk 150 ft (QC): 1 Walking 10ft/uneven surface-QC: 4 Gait Level of Assist: 5 (SBA) Gait Persons Needed: 1 Gait Assistive Device: FWW Wheelchair Training Does the Pt Use a Wheelchair?: Yes Wheelchair (FIM): 1 Wheelchair Distance: 1=up to 49 ft (10ftx2) Wheelchair Level of Assist: 2 Type of Wheelchair: Manual Stair Training Stairs (FIM): 0 #of Steps: 1 1 Step (curb) (QC): 3 4 Steps (QC): 9 12 Steps (QC): 09 Level of Assist: 3 Balance Picking up an Object (QC): 9 Mental Status/Objective Comprehension: 7 Expression: 7 Social Interaction: 7 Problem Solvin Memory: 7 ADL-Treatment Feedin Eating (QC): 7 Groomin Oral Hygiene (QC): 4 Bathin Shower/Bathe Self (QC): 2 Upper Extremity Dressin Upper Body Dressing (QC): 3 Lower Extremity Dressin Lower Body Dressing (QC): 3 On/Off Footwear (QC): 3 Toiletin (Pt requires assist to cleanse after BM. Pt able to manage clothing with SBA using grabbars.) Toileting Hygiene (QC): 3 Toilet/Commode Transfer: 4 (CGA) Toilet Transfer (QC): 3 Shower: 0 (Pt. declines) Assessment/Plan Assessment and Plan Assess & Plan/Chief Complaint Plan: IRF protocol Pain control with APAP Fall risk prevention BM regimen Voltaren gel for right shoulder pain Xray right shoulder ok and if needed will consult Ortho but seems to be better Needs AL at DC but patient wants to go home. (1) Debility Status: Acute (2) Acute renal failure Status: Acute Qualifiers: Acute renal failure type: unspecified Qualified Codes: N17.9 - Acute kidney failure, unspecified (3) Dehydration Status: Acute (4) Facial hematoma Status: Acute (5) Nausea Status: Acute (6) Fall Status: Acute Qualifiers: Encounter type: subsequent encounter Qualified Codes: W19.XXXD - Unspecified fall, subsequent encounter (7) Obesity Status: Chronic Qualifiers: Obesity type: due to excess calories Body mass index: BMI 40.0-44.9 (8) Traumatic hematoma of forehead Status: Acute Qualifiers: Encounter type: subsequent encounter Qualified Codes: S00.83XD - Contusion of other part of head, subsequent encounter (9) Edema Status: Acute Qualifiers: Edema type: localized Qualified Codes: R60.0 - Localized edema (10) Depression Status: Chronic Qualifiers: Depression Type: unspecified Qualified Codes: F32.9 - Major depressive disorder, single episode, unspecified JOSEY MEJIA DO Nov 20, 2018 15:41
[2018-11-20 17:33] VITALS: BP 110/65
[2018-11-20] MEDS: POLYETHYLENE GLYCOL 17 GM (MIRALAX) PACK PO SCH (21:38)
[2018-11-21] MEDS: ACETAMINOPHEN 325 MG TABLET PO PRN ×2 (01:30→20:52)
[2018-11-21 05:46] VITALS: BP 108/66
[2018-11-21] MEDS: PANTOPRAZOLE 40 MG (PROTONIX) TAB PO SCH (06:37)
[2018-11-21] MEDS: KCL 10 MEQ TAB (MICRO K) PO SCH (06:37)
[2018-11-21] MEDS: FUROSEMIDE 20 MG (LASIX) TAB PO SCH (08:28)
[2018-11-21] MEDS: MICONAZOLE 2% POWDER (DESENEX AF) 90 GM TOP SCH ×2 (08:29→20:52)
--- NOTE | 2018-11-21 08:41 | NUR ---
[employer] REPAIR TECHNICIAN arranged assisted living consults with [facility] and [facility] for Thursday from 10am-12p. Patient's niece will be present, per patient's request.
--- NOTE | 2018-11-21 12:26 | PM&R Progress Note ---
Subjective HPI/CC On Admission Date Seen by Provider: Nov 21, 2018 Time Seen by Provider: 12:15 CC: Debility following fall HPI: This is a 81yoWF clinic Pt of Dr. 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 Lower extremity edema was managed with low-dose Lasix and Potassium along with wide christopher wraps. Bowels returned back to normal after multiple laxatives that resolved the issue. Her prior level of functioning was with the use of assistive devices at home but she has a history of multiple falls and will inquire if she is willing to go to assistive living which would serve her a lot better and provide her with a little bit more support but she likely will want to return home to live independently so will need to aggressively treat her in need to regain hr independence of ADLs and ambulation in order to return home. Subjective/Events-last exam Had a bowel movement today Pain is controlled Christopher wraps and Lasix and potassium really helpful Fall risk continues Conferred with RN Reviewed therapy notes Checked meds and labs Review of Systems General: Fatigue Musculoskeletal: leg pain Objective Exam Vital Signs Vital Signs Date Time Temp Pulse Resp B/P (MAP) Pulse Ox O2 Delivery O2 Flow Rate FiO2 11/21/18 09:59 Room Air 11/21/18 05:46 98.3 76 16 108/66 (80) 96 Capillary Refill : General Appearance: No Apparent Distress, WD/WN, Chronically ill, Obese HEENT: PERRL/EOMI, Pharynx Normal, Moist Mucous Membranes, Other (ecchymosis right facial contusion improved) Neck: Full Range of Motion, Normal Inspection, Non Tender, Supple Respiratory: Chest Non Tender, Lungs Clear, Normal Breath Sounds, No Accessory Muscle Use, No Respiratory Distress Cardiovascular: Regular Rate, Rhythm, No Gallop, No JVD, No Murmur Gastrointestinal: Normal Bowel Sounds, No Organomegaly, No Pulsatile Mass, Non Tender, Soft Back: Normal Inspection, No CVA Tenderness, No Vertebral Tenderness Extremity: Normal Capillary Refill, Normal Inspection, Normal Range of Motion, Non Tender, No Calf Tenderness, Pedal Edema Neurologic/Psychiatric: Alert, Oriented x3, No Motor/Sensory Deficits, Normal Mood/Affect Skin: Normal Color, Warm/Dry Lymphatic: No Adenopathy Results/Procedures Lab Patient resulted labs reviewed. FIM Transfers Therapy Code Descriptions/Definitions Functional [place] Measure: 0=Not Assessed/NA 4=Minimal Assistance 1=Total Assistance 5=Supervision or Setup 2=Maximal Assistance 6=Modified [place] 3=Moderate Assistance 7=Complete [place] Therapy Quality Codes: 6 Independent with activity with or without an assistive device 5 Patient requires set up or clean up by helper. Patient completes activity by themselves 4 Supervision or touching assist (CGA). [place] provide cues , steadying assist 3 The helper provides less than half the effort to complete the activity 2 The helper provides more than half the effort to complete the activity 1 Dependent. The helper does all the effort to complete an activity 7 Patient refused to complete or attempt activity 9 The patient did not perform the activity before the current illness or injury 88 Not attempted due to Medical conditions or safety concerns Transfers (B, C, W/C) (FIM): 5 Scootin Rollin Roll Left to Right (QC): 3 Supine to/from Sit: 5 (HOB elevated. Pt does not sleep in bed at all at home, states she always sleeps in recliner) Sit to/from Stand: 5 (SBA, several unsuccessful attempts from low bed, able to rise upon 1st attempt from EOB slightly elevated. Able to rise from toilet with use of grab bars but with several attempts. stand to sit transfers with proper hand placement. Sit to stand from NuStep SBA after several attempts) Sit to Lying (QC): 3 Sit to Stand (QC): 3 Chair/Bmi-ss-Oyfec Xfer(QC): 4 Bed to/from Chair: 4 Car Transfer (QC): 3 Gait Training Does the Patient Walk?: Yes Gait (FIM): 5 Distance (FIM): 0=449-71 ft Distance: 100 x2 Walk 10 feet (QC): 4 Walk 50 ft with 2 Turns(QC): 4 Walk 150 ft (QC): 1 Walking 10ft/uneven surface-QC: 4 Gait Level of Assist: 5 (SBA) Gait Persons Needed: 1 Gait Assistive Device: FWW Wheelchair Training Does the Pt Use a Wheelchair?: Yes Wheelchair (FIM): 1 Wheelchair Distance: 1=up to 49 ft (10ftx2) Wheelchair Level of Assist: 2 Type of Wheelchair: Manual Stair Training Stairs (FIM): 0 #of Steps: 1 1 Step (curb) (QC): 3 4 Steps (QC): 9 12 Steps (QC): 09 Level of Assist: 3 Balance Picking up an Object (QC): 9 Mental Status/Objective Comprehension: 7 Expression: 7 Social Interaction: 7 Problem Solvin Memory: 7 ADL-Treatment Feedin Eating (QC): 7 Groomin Oral Hygiene (QC): 4 Bathin Shower/Bathe Self (QC): 2 Upper Extremity Dressin Upper Body Dressing (QC): 3 Lower Extremity Dressin Lower Body Dressing (QC): 3 On/Off Footwear (QC): 3 Toiletin (Pt requires assist to cleanse after BM. Pt able to manage clothing with SBA using grabbars.) Toileting Hygiene (QC): 3 Toilet/Commode Transfer: 4 (CGA) Toilet Transfer (QC): 3 Shower: 0 (Pt. declines) Assessment/Plan Assessment and Plan Assess & Plan/Chief Complaint Plan: IRF protocol Pain control with APAP Fall risk prevention BM regimen Voltaren gel for right shoulder pain Xray right shoulder ok and if needed will consult [facility] [place] [facility] [place] but she appears to want to go home still even with fall risks. (1) Debility Status: Acute (2) Acute renal failure Status: Acute Qualifiers: Acute renal failure type: unspecified Qualified Codes: N17.9 - Acute kidney failure, unspecified (3) Dehydration Status: Acute (4) Facial hematoma Status: Acute (5) Nausea Status: Acute (6) Fall Status: Acute Qualifiers: Encounter type: subsequent encounter Qualified Codes: W19.XXXD - Unspecified fall, subsequent encounter (7) Obesity Status: Chronic Qualifiers: Obesity type: due to excess calories Body mass index: BMI 40.0-44.9 (8) Traumatic hematoma of forehead Status: Acute Qualifiers: Encounter type: subsequent encounter Qualified Codes: S00.83XD - Contusion of other part of head, subsequent encounter (9) Edema Status: Acute Qualifiers: Edema type: localized Qualified Codes: R60.0 - Localized edema (10) Depression Status: Chronic Qualifiers: Depression Type: unspecified Qualified Codes: F32.9 - Major depressive disorder, single episode, unspecified JOSEY MEJIA DO Nov 21, 2018 12:26
[2018-11-21 17:42] VITALS: BP 110/60
[2018-11-21] MEDS: POLYETHYLENE GLYCOL 17 GM (MIRALAX) PACK PO SCH (20:52)
[2018-11-22 06:11] VITALS: BP 94/51
[2018-11-22] MEDS: KCL 10 MEQ TAB (MICRO K) PO SCH (06:13)
[2018-11-22] MEDS: PANTOPRAZOLE 40 MG (PROTONIX) TAB PO SCH (06:13)
[2018-11-22 06:30] LABS: BASOPHILS % (AUTO) 0 % (0-10); EOSINOPHILS # (AUTO) 0.2 10^3/uL (0.0-0.3); EOSINOPHILS % (AUTO) 4 % (0-10); HEMATOCRIT 26 % (35-52); HEMOGLOBIN 8.1 G/DL (11.5-16.0); LYMPHOCYTES # (AUTO) 1.1 X 10^3 (1.0-4.0); LYMPHOCYTES % (AUTO) 21 % (12-44); MEAN CORPUSCULAR HEMOGLOBIN 32 PG (25-34); MEAN CORPUSCULAR HGB CONC 31 G/DL (32-36); MEAN CORPUSCULAR VOLUME 102 FL (80-99); MEAN PLATELET VOLUME 9.1 FL (7.4-10.4); MONOCYTES # (AUTO) 0.5 X 10^3 (0.0-1.0); MONOCYTES % (AUTO) 8 % (0-12); NEUTROPHILS # (AUTO) 3.6 X 10^3 (1.8-7.8); NEUTROPHILS % (AUTO) 67 % (42-75); PLATELET COUNT 176 10^3/uL (130-400); RED CELL DISTRIBUTION WIDTH 15.4 % (10.0-14.5); WHITE BLOOD COUNT 5.4 10^3/uL (4.3-11.0)
--- NOTE | 2018-11-22 06:34 | Progress Note ---
[facility] 11/22/18 0634: Subjective Date Seen by a Provider: Nov 22, 2018 Time Seen by a Provider: 07:00 Subjective/Events-last exam Had a bowel movement today Pain is controlled BUN elevated @ 25, however it is down from 11/17/09 (28 at the time) BP slightly low for pt this AM Decreased Hgb from 8.8 to 8.1 this AM has a AGUILAR, which she says she usually wakes up with, has not yet taken her AM Tylenol Bruises still painful Had episode of sudden onset R Knee pain described as "Vice-like pressure" Knee pain improved wit Tylenol Has been using Christopher wraps and is taking Lasix and potassium as prescribed: considerable improvement to LE edema Fall risk continues Waiting on today's lab results pupil personnel services director has arranged assisted living consults with [facility] [place] and [facility] for today from 10am-12p Pt states she is reluctant to go to assisted living because she does not like to be around other people all the time, and she is worried she will lose her independence Review of Systems General: No Chills, No Night Sweats, No Fatigue HEENT: No Head Aches Pulmonary: No Dyspnea, No Cough, No Pleuritic Chest Pain Cardiovascular: Edema; No: Chest Pain, Palpitations Gastrointestinal: No: Nausea, Vomiting Genitourinary: No Dysuria Neurological: No: Weakness Objective Exam Last Set of Vital Signs Vital Signs Date Time Temp Pulse Resp B/P (MAP) Pulse Ox O2 Delivery O2 Flow Rate FiO2 11/22/18 06:11 98.2 75 18 94/51 (65) 95 Room Air Capillary Refill : I&O Intake and Output 11/22/18 00:00 Intake Total 1050 ml Balance 1050 ml Intake Oral 1050 ml # Voids 4 # Bowel Movements 2 General: Alert, Oriented X3, Cooperative, No Acute Distress HEENT: Other (Bruises to R head, neck and body) Neck: Supple Lungs: Clear to Auscultation, Normal Air Movement Extremities: No Clubbing, No Cyanosis, Normal Pulses Skin: No Rashes, No Breakdown Psych/Mental Status: Mental Status NL Results Lab Laboratory Tests 11/22/18 05:55: Assessment/Plan Assessment/Plan Assess & Plan/Chief Complaint IRF protocols BM regimen to be maintained to avoid constipation and excessive straining to decreased risk of another fall Pain control Use CHRISTOPHER Wraps more diligently Monitor BUN and Cr Minor drop in Hgb, continue to Monitor Hgb Total bilirubin NL now Continue PT/OT/Group therapy regimen DVT prophylaxis. Follow pt's assisted living situation with Social workers Clinical Quality Measures DVT/VTE Risk/Contraindication: Risk Factor Score Per Nursin RFS Level Per Nursing on Admit: 4+=Very High RACHEAL MEJIA DO 11/22/18 2019: Supervisory-Addendum Brief Verification & Attestation Participated in pt care: history, MDM, physical Personally performed: exam, history, MDM, supervision of care Care discussed with: Medical Student Procedures: n/a Results interpretation: Verified all documentation Verification and Attestation of Medical Student E/M Service A medical student performed and documented this service in my presence. I reviewed and verified all information documented by the medical student and made modifications to such information, when appropriate. I personally performed the physical exam and medical decision making. Racheal Mejia, Nov 22, 2018,20:19 [facility] Nov 22, 2018 06:34 RACHEAL MEJIA DO Nov 22, 2018 20:19
[2018-11-22 06:53] LABS: CALCIUM 8.7 MG/DL (8.5-10.1); CREATININE SERUM 1.09 MG/DL (0.60-1.30); POTASSIUM 4.5 MMOL/L (3.6-5.0); TOTAL PROTEIN 6.1 GM/DL (6.4-8.2)
[2018-11-22] MEDS: FUROSEMIDE 20 MG (LASIX) TAB PO SCH (08:38)
[2018-11-22] MEDS: ACETAMINOPHEN 325 MG TABLET PO PRN ×2 (08:39→22:03)
[2018-11-22] MEDS: MICONAZOLE 2% POWDER (DESENEX AF) 90 GM TOP SCH ×2 (08:42→22:03)
--- NOTE | 2018-11-22 10:27 | Physical Therapy Daily Note ---
PT Daily Note-Current Subjective " I just get settled in to rest and here you come". Pt. states she has more swelling in her legs today and is having more trouble moving around. AGrees to Rx with encouragement Pain Numeric Pain Scale: 4 Location: Right Location Body Site: Hip Pain Description: Ache Mental Status Patient Orientation: Normal For Age Transfers Therapy Code Descriptions/Definitions Functional [place] Measure: 0=Not Assessed/NA 4=Minimal Assistance 1=Total Assistance 5=Supervision or Setup 2=Maximal Assistance 6=Modified [place] 3=Moderate Assistance 7=Complete [place] Therapy Quality Codes: 6 Independent with activity with or without an assistive device 5 Patient requires set up or clean up by helper. Patient completes activity by themselves 4 Supervision or touching assist (CGA). [place] provide cues , steadying assist 3 The helper provides less than half the effort to complete the activity 2 The helper provides more than half the effort to complete the activity 1 Dependent. The helper does all the effort to complete an activity 7 Patient refused to complete or attempt activity 9 The patient did not perform the activity before the current illness or injury 88 Not attempted due to Medical conditions or safety concerns Transfers (B, C, W/C) (FIM): 4 Scootin Sit to/from Stand: 4 Weight Bearing Full Weight Bearing Full Weight Bearing Gait Training Does the Patient Walk?: Yes Gait (FIM): 2 Distance (FIM): 1=876-08 ft ([id number]) Gait Level of Assist: 5 Gait Persons Needed: 1 Gait Assistive Device: FWW slow with c/o fatigue and need to rest Exercises Seated Therapy Exercises: Ankle pumps, Sit to stand, Long arc quads, Hip flexion, Hip abd/add Seated Reps: 20 Treatments emphasis on wt shift and forward movement for sit to stand TRFs, difficult today likely secondary to increased edema in LEs Assessment Current Status: Good Progress fatigue and edema limits function this date PT Short Term Goals Short Term Goals Time Frame: Dec 01, 2018 Transfers (B,C,W/C) (FIM): 4 Gait (FIM): 4 Distance (FIM): 3=150 ft Gait Distance Comment: 150 Gait Level of Assist: 4 Gait Assistive Device: FWW PT Claim Manager Goals Claim Manager Goals PT Claim Manager Goals Time Frame: Dec 01, 2018 Transfers (B,C,W/C) (FIM): 6 Sit to Lying (QC): 6 Lying-Sitting on Side/Bed(QC): 6 Sit to Stand (QC): 6 Rollin Roll Left to Right (QC): 6 Chair/Bxr-nk-Gqocv Xfer(QC): 6 Car Transfer (QC): 5 Gait (FIM): 5 Gait distance (FIM): 3=150 ft Distance: 150 Walk 10 feet (QC): 6 Walk 10ft-Uneven Surface(QC): 6 Walk 50ft with 2 Turns (QC): 6 Walk 150 ft (QC): 6 Gait Assistive Device: FWW Wheel 50 feet with 2 turns (QC: 9 Stairs (FIM): 9 1 Step (curb) (QC): 5 4 Steps (QC): 9 12 Steps (QC): 9 Stairs Level Of Assist: 5 Picking up an Object (QC): 9 PT Plan Treatment/Plan Treatment Plan: Continue Plan of Care Treatment Plan: Bed Mobility, Education, Functional Activity Cintia, Functional Strength, Gait, Safety, Therapeutic Exercise Treatment Duration: Dec 01, 2018 Frequency: At least 5 of 7 days/Wk (IRF) Estimated Hrs Per Day: 1.5 hours per day Patient and/or Family Agrees t: Yes Safety Risks/Education Patient Education: Gait Training, Transfer Techniques, Correct Positioning, Disease Process, Safety Issues Teaching Recipient: Patient Teaching Methods: Demonstration, Discussion Response to Teaching: Verbalize Understanding, Return Demonstration, Reinforcement Needed Time/GCodes Time In: 930 Time Out: 1015 Total Billed Treatment Time: 45 Total Billed Treatment 1,FA25m,GT20m ZION COLEY ANTITANK ASSAULT GUNNER Nov 22, 2018 10:27
--- NOTE | 2018-11-22 11:13 | Occupational Ther Daily Note ---
OT Current Status-Daily Note Subjective Pt alert sitting in chair. Pt agrees to shower. Increased edema noted in LE's. Pt requested pain meds, reported to nrsg. Mental Status/Objective Patient Orientation: Person, Place, Time, Situation Therapy Code Descriptions/Definitions Functional [place] Measure: 0=Not Assessed/NA 4=Minimal Assistance 1=Total Assistance 5=Supervision or Setup 2=Maximal Assistance 6=Modified [place] 3=Moderate Assistance 7=Complete [place] ADL-Treatment Therapy Code Descriptions/Definitions Functional [place] Measure: 0=Not Assessed/NA 4=Minimal Assistance 1=Total Assistance 5=Supervision or Setup 2=Maximal Assistance 6=Modified [place] 3=Moderate Assistance 7=Complete [place] Therapy Quality Codes: 6 Independent with activity with or without an assistive device 5 Patient requires set up or clean up by helper. Patient completes activity by themselves 4 Supervision or touching assist (CGA). [place] provide cues , steadying a ssist 3 The helper provides less than half the effort to complete the activity 2 The helper provides more than half the effort to complete the activity 1 Dependent. The helper does all the effort to complete an activity 7 Patient refused to complete or attempt activity 9 The patient did not perform the activity before the current illness or injury 88 Not attempted due to Medical conditions or safety concerns Grooming (FIM): 4 (Pt able to brush teeth sitting at sink in chair. Pt able to reach front and sides of hair, required assist brushing hair in the back. ) Oral Hygiene (QC): 6 Bathing (FIM): 4 (Pt requires grab bar, shower bench, and hand held shower head. Pt required assist to wash buttocks and hair. Pt able to rinse and dry self. ) Bathing Location: L Arm, R Arm, L Upper Leg, R Upper Leg, L Lower Leg (including foot), R Lower Leg (including foot), Chest, Abdomen, Perineal Area Shower/Bathe Self (QC): 4 Upper Body (FIM): 5 (Pt able to don/doff shirt by self, set up. Pt c/o decreased shldr ROM, encouragement to complete by self.) Upper Body Dressing (QC): 5 Lower Body Dressing (FIM): 3 (Pt required dressing stick to don/doff briefs and pants. Pt required assist to adjust clothing around toes and feet. Pt requires FWW to stand. Pt able to hike briefs and pants above waist. Pt requires assist to adjust briefs and pants in the back. CGA while pt is standing. Pt demo ability to use sock aid. ) Lower Body Dressing (QC): 3 Toileting (FIM): 3 (Pt able to adjust clothing before and after voiding and BM. Pt requires assist to cleanse self. ) Toileting Hygiene (QC): 3 Transfers (B, C, W/C) (FIM): 4 (Pt requires FWW and arm rests. CGA to go from sit to stand and in standing for safety concerns. ) Toilet/Commode Transfer (FIM): 4 (Pt requires FWW, grab bar, and raised toilet seat. CGA with stand to sit. ) Toilet Transfer (QC): 4 Shower Transfer(FIM): 4 (Pt requires FWW, grab bar and shower bench. CGA assist with stand to sit. ) Other Treatment Assist to wrap LE's due to increased edema. Pt sitting in chair. Call light and phone in reach. Pts needs met. OT Short Term Goals Short Term Goals Time Frame: Nov 30, 2018 Eating(FIM): 5 Grooming(FIM): 4 Bathing(FIM): 3 Upper Body Dressing(FIM): 3 Lower Body Dressing(FIM): 3 Toileting(FIM): 3 Transfers (B,C,W/C) (FIM): 4 Toilet/Commode Transfer(FIM): 4 Shower Transfer(FIM): 3 Additional Short Term Goals: 1-Demonstrate ADL Tasks, 2-Verbalize Understanding, 3-ImproveStrength/Cintia 1=Demonstrate adherence to instructed precautions during ADL tasks. 2=Patient will verbalize/demonstrate understanding of assistive devices/modifications for ADL. 3=Patient will improve strength/tolerance for activity to enable patient to perform ADL's. OT Cam Maker Goals Cam Maker Goals Time Frame: Dec 14, 2018 Eating (FIM): 7 Eating (QC): 6 Groomin Oral Hygiene (QC): 6 Bathing(FIM): 5 Shower/Bathe Self (QC): 4 Upper Body Dressing(FIM): 5 Upper Body Dressing (QC): 4 Lower Body Dressing(FIM): 5 Lower Body Dressing (QC): 4 On/Off Footwear (QC): 4 Toileting(FIM): 6 Toileting Hygiene (QC): 6 Transfers (B,C,W/C) (FIM): 6 Toilet/Commode Transfer(FIM): 6 Toilet/Commode Transfer (QC): 6 Shower Transfer(FIM): 5 Additional Goals: 1-Demonstrate ADL Tasks, 2-Verbalize Understanding, 3- ImproveStrength/Cintia 1=Demonstrate adherence to instructed precautions during ADL tasks. 2=Patient will verbalize/demonstrate understanding of assistive de vices/modifications for ADL. 3=Patient will improve strength/tolerance for activity to enable patient to perform ADL's. OT Education/Plan Discharge Recommendations Plan/Recommendations: Continue POC Treatment Plan/Plan of Care Patient would benefit from OT for education, treatment and training to promote independence in ADL's, mobility, safety and/or upper extremity function for ADL's. Plan of Care: ADL Retraining, Functional Mobility, Group Exercise/Act as Ind, UE Funct Exercise/Act Treatment Duration: Dec 14, 2018 Frequency: At least 5 of 7 days/Wk (IRF) Estimated Hrs Per Day: 1.5 hours per day Agreement: Yes Rehab Potential: Good Time/GCodes Start Time: 07:00 Stop Time: 08:30 Total Time Billed (hr/min): 90 Billed Treatment Time 1 visit- ADL 6 ( 90 min) PAULINO MEJIA Nov 22, 2018 11:13
--- NOTE | 2018-11-22 12:38 | NUR ---
Notified of patient and family concern regarding BLE edema. Patient and family report that the edema has worsened and the patient c/o pain and decreased ROM in BLEs. Notified Dr. Miller and Clarence Menendez RN. No new orders received at this time.
--- NOTE | 2018-11-22 15:28 | Physical Therapy Daily Note ---
PT Daily Note-Current Subjective Pt. in recliner upon entering and states she is upset about all the swelling in her legs and doesnt think she should do anything until she finds out what is going on. States her family feels the same way. This CAPACITY PLANNING ENGINEER explained that her Dr will explain the reason for the weight gain but movement and activity may be more difficult because of the extra weight in her legs but activity is not contraindicated and will help move the fluid off. Pt. then agrees and conscents to be up on the commode and in bed with level bed to help diurese off fluid. Pt. c/o fatigue and how laborious it is to move LEs with all the fluid on them Pain Location: No Pain Reported Mental Status Patient Orientation: Normal For Age hard of hearing Transfers Therapy Code Descriptions/Definitions Functional [place] Measure: 0=Not Assessed/NA 4=Minimal Assistance 1=Total Assistance 5=Supervision or Setup 2=Maximal Assistance 6=Modified [place] 3=Moderate Assistance 7=Complete [place] Therapy Quality Codes: 6 Independent with activity with or without an assistive device 5 Patient requires set up or clean up by helper. Patient completes activity by themselves 4 Supervision or touching assist (CGA). [place] provide cues , steadying assist 3 The helper provides less than half the effort to complete the activity 2 The helper provides more than half the effort to complete the activity 1 Dependent. The helper does all the effort to complete an activity 7 Patient refused to complete or attempt activity 9 The patient did not perform the activity before the current illness or injury 88 Not attempted due to Medical conditions or safety concerns Transfers (B, C, W/C) (FIM): 3 Scootin Rollin Supine to/from Sit: 3 Sit to/from Stand: 4 pt. needs assist LEs in out bed secondary to edema Weight Bearing Full Weight Bearing Full Weight Bearing Gait Training Gait Assistive Device: FWW ambulated 15 ft x 3 to toilet and back , slow, laborious with CGA Exercises Supine Ex: Bridging, Ankle pumps, Quad Set, Rolling (assisted), Glut sets, Heel Slides, Short Arc Quads, Scooting, Straight leg raise, Hip abd/add Supine Reps: 20 Treatments used BSC x 3 during Rx for urination Assessment Current Status: Fair Progress poor tolerance for Rx as pt. has difficultly moving heavy LEs PT Short Term Goals Short Term Goals Time Frame: Dec 01, 2018 Transfers (B,C,W/C) (FIM): 4 Gait (FIM): 4 Distance (FIM): 3=150 ft Gait Distance Comment: 150 Gait Level of Assist: 4 Gait Assistive Device: FWW PT Long-Term Goals Tool Room Machinist Goals PT Long-Term Goals Time Frame: Dec 01, 2018 Transfers (B,C,W/C) (FIM): 6 Sit to Lying (QC): 6 Lying-Sitting on Side/Bed(QC): 6 Sit to Stand (QC): 6 Rollin Roll Left to Right (QC): 6 Chair/Ylg-hx-Nkffu Xfer(QC): 6 Car Transfer (QC): 5 Gait (FIM): 5 Gait distance (FIM): 3=150 ft Distance: 150 Walk 10 feet (QC): 6 Walk 10ft-Uneven Surface(QC): 6 Walk 50ft with 2 Turns (QC): 6 Walk 150 ft (QC): 6 Gait Assistive Device: FWW Wheel 50 feet with 2 turns (QC: 9 Stairs (FIM): 9 1 Step (curb) (QC): 5 4 Steps (QC): 9 12 Steps (QC): 9 Stairs Level Of Assist: 5 Picking up an Object (QC): 9 PT Plan Treatment/Plan Treatment Plan: Continue Plan of Care Treatment Plan: Bed Mobility, Education, Functional Activity Cintia, Functional Strength, Gait, Safety, Therapeutic Exercise Treatment Duration: Dec 01, 2018 Frequency: At least 5 of 7 days/Wk (IRF) Estimated Hrs Per Day: 1.5 hours per day Patient and/or Family Agrees t: Yes Safety Risks/Education Patient Education: Gait Training, Transfer Techniques, Correct Positioning, Disease Process, Safety Issues Teaching Recipient: Patient Teaching Methods: Demonstration, Discussion Response to Teaching: Verbalize Understanding, Return Demonstration, Reinforcement Needed Time/GCodes Time In: 1425 Time Out: 1520 Total Billed Treatment Time: 55 Total Billed Treatment 1,FA40m,EX15 ZION COLEY CAPACITY PLANNING ENGINEER Nov 22, 2018 15:28
[2018-11-22 16:38] VITALS: BP 113/69
--- NOTE | 2018-11-22 19:58 | NUR ---
Entered med changes of Lasix & Potassium as received from Dr. Miller this AM d/t bouts of hypotension.
--- NOTE | 2018-11-22 20:20 | PM&R Progress Note ---
Subjective HPI/CC On Admission Date Seen by Provider: Nov 22, 2018 Time Seen by Provider: 09:00 CC: Debility following fall HPI: This is a 81yoWF clinic Pt of Dr. 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 Lower ex tremity edema was managed with low-dose Lasix and Potassium along with wide christopher wraps. Bowels returned back to normal after multiple laxatives that resolved the issue. Her prior level of functioning was with the use of assistive devices at home but she has a history of multiple falls and will inquire if she is willing to go to assistive living which would serve her a lot better and provide her wit h a little bit more support but she likely will want to return home to live independently so will need to aggressively treat her in need to regain hr independence of ADLs and ambulation in order to return home. 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 and she was taken of Coumadin and she does have a filter in place so will obtain B/L Venous Doppler Ultrasound Christopher wraps and Lasix and potassium really helpful Fall risk continues Conferred with RN Reviewed therapy notes Checked meds and labs Review of Systems General: Fatigue Cardiovascular: Edema Objective Exam Vital Signs Vital Signs Date Time Temp Pulse Resp B/P (MAP) Pulse Ox O2 Delivery O2 Flow Rate FiO2 11/22/18 16:38 37.0 80 14 113/69 96 Room Air Capillary Refill : General Appearance: No Apparent Distress, WD/WN, Chronically ill, Obese HEENT: PERRL/EOMI, Pharynx Normal, Moist Mucous Membranes, Other (ecchymosis right facial contusion improved) Neck: Full Range of Motion, Normal Inspection, Non Tender, Supple Respiratory: Chest Non Tender, Lungs Clear, Normal Breath Sounds, No Accessory Muscle Use, No Respiratory Distress Cardiovascular: Regular Rate, Rhythm, No Gallop, No JVD, No Murmur Gastrointestinal: Normal Bowel Sounds, No Organomegaly, No Pulsatile Mass, Non Tender, Soft Back: Normal Inspection, No CVA Tenderness, No Vertebral Tenderness Extremity: Normal Capillary Refill, Normal Inspection, Normal Range of Motion, Non Tender, No Calf Tenderness, Pedal Edema Neurologic/Psychiatric: Alert, Oriented x3, No Motor/Sensory Deficits, Normal Mood/Affect Skin: Normal Color, Warm/Dry Lymphatic: No Adenopathy Results/Procedures Lab Laboratory Tests 11/22/18 05:55 Patient resulted labs reviewed. FIM Transfers Therapy Code Descriptions/Definitions Functional [place] Measure: 0=Not Assessed/NA 4=Minimal Assistance 1=Total Assistance 5=Supervision or Setup 2=Maximal Assistance 6=Modified [place] 3=Moderate Assistance 7=Complete [place] Therapy Quality Codes: 6 Independent with activity with or without an assistive device 5 Patient requires set up or clean up by helper. Patient completes activity by themselves 4 Supervision or touching assist (CGA). [place] provide cues , steadying assist 3 The helper provides less than half the effort to complete the activity 2 The helper provides more than half the effort to complete the activity 1 Dependent. The helper does all the effort to complete an activity 7 Patient refused to complete or attempt activity 9 The patient did not perform the activity before the current illness or injury 88 Not attempted due to Medical conditions or safety concerns Transfers (B, C, W/C) (FIM): 3 Scootin Rollin Roll Left to Right (QC): 3 Supine to/from Sit: 3 Sit to/from Stand: 4 Sit to Lying (QC): 3 Sit to Stand (QC): 3 Chair/Sfv-wa-Didrz Xfer(QC): 4 Bed to/from Chair: 4 Car Transfer (QC): 3 Gait Training Does the Patient Walk?: Yes Gait (FIM): 2 Distance (FIM): 0=069-66 ft ([id number]) Distance: 100 x2 Walk 10 feet (QC): 4 Walk 50 ft with 2 Turns(QC): 4 Walk 150 ft (QC): 1 Walking 10ft/uneven surface-QC: 4 Gait Level of Assist: 5 Gait Persons Needed: 1 Gait Assistive Device: FWW Wheelchair Training Does the Pt Use a Wheelchair?: Yes Wheelchair (FIM): 1 Wheelchair Distance: 1=up to 49 ft (10ftx2) Wheelchair Level of Assist: 2 Type of Wheelchair: Manual Stair Training Stairs (FIM): 0 #of Steps: 1 1 Step (curb) (QC): 3 4 Steps (QC): 9 12 Steps (QC): 09 Level of Assist: 3 Balance Picking up an Object (QC): 9 Mental Status/Objective Comprehension: 7 Expression: 7 Social Interaction: 7 Problem Solvin Memory: 7 ADL-Treatment Feedin Eating (QC): 7 Groomin (Pt able to brush teeth sitting at sink in chair. Pt able to reach front and sides of hair, required assist brushing hair in the back. ) Oral Hygiene (QC): 6 Bathin (Pt requires grab bar, shower bench, and hand held shower head. Pt required assist to wash buttocks and hair. Pt able to rinse and dry self. ) Bathing Location: L Arm, R Arm, L Upper Leg, R Upper Leg, L Lower Leg (including foot), R Lower Leg (including foot), Chest, Abdomen, Perineal Area Shower/Bathe Self (QC): 4 Upper Extremity Dressin (Pt able to don/doff shirt by self, set up. Pt c/o decreased shldr ROM, encouragement to complete by self.) Upper Body Dressing (QC): 5 Lower Extremity Dressin (Pt required dressing stick to don/doff briefs and pants. Pt required assist to adjust clothing around toes and feet. Pt requires FWW to stand. Pt able to hike briefs and pants above waist. Pt requires assist to adjust briefs and pants in the back. CGA while pt is standing. Pt demo ability to use sock aid. ) Lower Body Dressing (QC): 3 On/Off Footwear (QC): 3 Toiletin (Pt able to adjust clothing before and after voiding and BM. Pt requires assist to cleanse self. ) Toileting Hygiene (QC): 3 Toilet/Commode Transfer: 4 (Pt requires FWW, grab bar, and raised toilet seat. CGA with stand to sit. ) Toilet Transfer (QC): 4 Shower: 4 (Pt requires FWW, grab bar and shower bench. CGA assist with stand to sit. ) Assessment/Plan Assessment and Plan Assess & Plan/Chief Complaint Plan: IRF protocol Pain control with APAP Fall risk prevention BM regimen Voltaren gel for right shoulder pain Xray right shoulder ok and if needed will consult Ortho Needs [place] at [place] but she appears to want to go home still even with fall risks. Venous doppler USG to evaluate lower extremity edema (1) Debility Status: Acute (2) Acute renal failure Status: Acute Qualifiers: Acute renal failure type: unspecified Qualified Codes: N17.9 - Acute kidney failure, unspecified (3) Dehydration Status: Acute (4) Facial hematoma Status: Acute (5) Nausea Status: Acute (6) Fall Status: Acute Qualifiers: Encounter type: subsequent encounter Qualified Codes: W19.XXXD - Unspecified fall, subsequent encounter (7) Obesity Status: Chronic Qualifiers: Obesity type: due to excess calories Body mass index: BMI 40.0-44.9 (8) Traumatic hematoma of forehead Status: Acute Qualifiers: Encounter type: subsequent encounter Qualified Codes: S00.83XD - Contusion of other part of head, subsequent encounter (9) Edema Status: Acute Qualifiers: Edema type: localized Qualified Codes: R60.0 - Localized edema (10) Depression Status: Chronic Qualifiers: Depression Type: unspecified Qualified Codes: F32.9 - Major depressive disorder, single episode, unspecified JOSEY MEJIA DO Nov 22, 2018 20:20
[2018-11-22] MEDS: POLYETHYLENE GLYCOL 17 GM (MIRALAX) PACK PO SCH (22:02)
[2018-11-23] MEDS: PANTOPRAZOLE 40 MG (PROTONIX) TAB PO SCH (05:11)
[2018-11-23 06:21] VITALS: BP 106/65
[2018-11-23] MEDS ORDERED: BISACODYL 10 MG SUPP (DULCOLAX) ONE (07:58)
[2018-11-23] MEDS: ACETAMINOPHEN 325 MG TABLET PO PRN ×3 (08:11→21:55)
[2018-11-23] MEDS ORDERED: BISACODYL 10 MG SUPP (DULCOLAX) PR PRN (08:15)
[2018-11-23] MEDS: MICONAZOLE 2% POWDER (DESENEX AF) 90 GM TOP SCH ×2 (08:56→21:50)
--- NOTE | 2018-11-23 09:42 | PM&R Progress Note ---
Subjective HPI/CC On Admission Date Seen by Provider: Nov 23, 2018 Time Seen by Provider: 09:00 CC: Debility following fall HPI: This is a 81yoWF clinic Pt of Dr. 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 Lower extremity edema was managed with low-dose Lasix and Potassium along with wide susan wraps. Bowels returned back to normal after multiple laxatives that resolved the issue. Her prior level of functioning was with the use of assistive devices at home but she has a history of multiple falls and will inquire if she is willing to go to assistive living which would serve her a lot better and provide her with a little bit more support but she likely will want to return home to live independently so will need to aggressively treat her in need to regain hr independence of ADLs and ambulation in order to return home. 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 Lasix and potassium every other day to minimize renal insufficiency. Assisted living did talk to her yesterday. Tylenol was given for headache. Talked to her about her participation and she is motivated to get better. Fall risk continues Conferred with RN Reviewed therapy notes Checked meds and labs After rounds USG confirmed bilateral DVT's so she was placed on Eliquis with close monitoring of hgb since 8.1 and major fall risk but she appears to be agreeable for AL and that would decrease fall risk and she had just been taken off OAC due to severe falls and high risk for SAH before admit so I updated PCP Dr Acharya and he agreed with the plan. She has filter in placed due to DVT's in the past. Review of Systems Cardiovascular: Edema Objective Exam Vital Signs Vital Signs Date Time Temp Pulse Resp B/P (MAP) Pulse Ox O2 Delivery O2 Flow Rate FiO2 11/23/18 14:22 36.4 83 20 131/72 100 Room Air Capillary Refill : General Appearance: No Apparent Distress, WD/WN, Chronically ill, Obese HEENT: PERRL/EOMI, Pharynx Normal, Moist Mucous Membranes, Other (ecchymosis right facial contusion improved) Neck: Full Range of Motion, Normal Inspection, Non Tender, Supple Respiratory: Chest Non Tender, Lungs Clear, Normal Breath Sounds, No Accessory Muscle Use, No Respiratory Distress Cardiovascular: Regular Rate, Rhythm, No Gallop, No JVD, No Murmur Gastrointestinal: Normal Bowel Sounds, No Organomegaly, No Pulsatile Mass, Non Tender, Soft Back: Normal Inspection, No CVA Tenderness, No Vertebral Tenderness Extremity: Normal Capillary Refill, Normal Inspection, Normal Range of Motion, Non Tender, No Calf Tenderness, Pedal Edema Neurologic/Psychiatric: Alert, Oriented x3, No Motor/Sensory Deficits, Normal Mood/Affect Skin: Normal Color, Warm/Dry Lymphatic: No Adenopathy Results/Procedures Lab Patient resulted labs reviewed. FIM Transfers Therapy Code Descriptions/Definitions Functional [place] Measure: 0=Not Assessed/NA 4=Minimal Assistance 1=Total Assistance 5=Supervision or Setup 2=Maximal Assistance 6=Modified [place] 3=Moderate Assistance 7=Complete [place] Therapy Quality Codes: 6 Independent with activity with or without an assistive device 5 Patient requires set up or clean up by helper. Patient completes activity by themselves 4 Supervision or touching assist (CGA). [place] provide cues , steadying assist 3 The helper provides less than half the effort to complete the activity 2 The helper provides more than half the effort to complete the activity 1 Dependent. The helper does all the effort to complete an activity 7 Patient refused to complete or attempt activity 9 The patient did not perform the activity before the current illness or injury 88 Not attempted due to Medical conditions or safety concerns Transfers (B, C, W/C) (FIM): 3 Scootin Rollin Roll Left to Right (QC): 3 Supine to/from Sit: 3 Sit to/from Stand: 4 Sit to Lying (QC): 3 Sit to Stand (QC): 3 Chair/Faf-nm-Jcnsb Xfer(QC): 4 Bed to/from Chair: 4 Car Transfer (QC): 3 Gait Training Does the Patient Walk?: Yes Gait (FIM): 2 Distance (FIM): 0=647-12 ft ([id number]) Distance: 100 x2 Walk 10 feet (QC): 4 Walk 50 ft with 2 Turns(QC): 4 Walk 150 ft (QC): 1 Walking 10ft/uneven surface-QC: 4 Gait Level of Assist: 5 Gait Persons Needed: 1 Gait Assistive Device: FWW Wheelchair Training Does the Pt Use a Wheelchair?: Yes Wheelchair (FIM): 1 Wheelchair Distance: 1=up to 49 ft (10ftx2) Wheelchair Level of Assist: 2 Type of Wheelchair: Manual Stair Training Stairs (FIM): 0 #of Steps: 1 1 Step (curb) (QC): 3 4 Steps (QC): 9 12 Steps (QC): 09 Level of Assist: 3 Balance Picking up an Object (QC): 9 Mental Status/Objective Comprehension: 7 Expression: 7 Social Interaction: 7 Problem Solvin Memory: 7 ADL-Treatment Feedin Eating (QC): 7 Groomin (Pt able to brush teeth sitting at sink in chair. Pt able to reach front and sides of hair, required assist brushing hair in the back. ) Oral Hygiene (QC): 6 Bathin (Pt requires grab bar, shower bench, and hand held shower head. Pt required assist to wash buttocks and hair. Pt able to rinse and dry self. ) Bathing Location: L Arm, R Arm, L Upper Leg, R Upper Leg, L Lower Leg (including foot), R Lower Leg (including foot), Chest, Abdomen, Perineal Area Shower/Bathe Self (QC): 4 Upper Extremity Dressin (Pt able to don/doff shirt by self, set up. Pt c/o decreased shldr ROM, encouragement to complete by self.) Upper Body Dressing (QC): 5 Lower Extremity Dressin (Pt required dressing stick to don/doff briefs and pants. Pt required assist to adjust clothing around toes and feet. Pt requires FWW to stand. Pt able to hike briefs and pants above waist. Pt requires assist to adjust briefs and pants in the back. CGA while pt is standing. Pt demo ability to use sock aid. ) Lower Body Dressing (QC): 3 On/Off Footwear (QC): 3 Toiletin (Pt able to adjust clothing before and after voiding and BM. Pt requires assist to cleanse self. ) Toileting Hygiene (QC): 3 Toilet/Commode Transfer: 4 (Pt requires FWW, grab bar, and raised toilet seat. CGA with stand to sit. ) Toilet Transfer (QC): 4 Shower: 4 (Pt requires FWW, grab bar and shower bench. CGA assist with stand to sit. ) Assessment/Plan Assessment and Plan Assess & Plan/Chief Complaint Plan: IRF protocol Pain control with APAP Fall risk prevention BM regimen Voltaren gel for right shoulder pain Xray right shoulder ok and if needed will consult Ortho Needs [place] at [place] but she appears to want to go home still even with fall risks. Venous doppler USG 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 already has filter in place (1) Debility Status: Acute (2) Acute renal failure Status: Acute Qualifiers: Acute renal failure type: unspecified Qualified Codes: N17.9 - Acute kidney failure, unspecified (3) Dehydration Status: Acute (4) Facial hematoma Status: Acute (5) Nausea Status: Acute (6) Fall Status: Acute Qualifiers: Encounter type: subsequent encounter Qualified Codes: W19.XXXD - Unspecified fall, subsequent encounter (7) Obesity Status: Chronic Qualifiers: Obesity type: due to excess calories Body mass index: BMI 40.0-44.9 (8) Traumatic hematoma of forehead Status: Acute Qualifiers: Encounter type: subsequent encounter Qualified Codes: S00.83XD - Contusion of other part of head, subsequent encounter (9) Edema Status: Acute Qualifiers: Edema type: localized Qualified Codes: R60.0 - Localized edema (10) Depression Status: Chronic Qualifiers: Depression Type: unspecified Qualified Codes: F32.9 - Major depressive disorder, single episode, unspecified (11) DVT (deep venous thrombosis) Status: Acute Qualifiers: DVT location: lower extremity Affected thrombotic vein of extremity: femoral Chronicity: acute Laterality: bilateral Qualified Codes: I82.413 - Acute embolism and thrombosis of femoral vein, bilateral (12) [place] filter in place Status: Chronic JOSEY MEJIA DO Nov 23, 2018 09:41
--- NOTE | 2018-11-23 12:18 | Physical Therapy Daily Note ---
PT Daily Note-Current Subjective Pt laying Supine in bed upon arrival. Pt agrees to PT but reports not feeling well, fatigued and hurting. Pain Numeric Pain Scale: 5-Moderate Pain Comment: Pt reports generalized pain throughout body. Mental Status Patient Orientation: Person, Place, Time, Situation Transfers Therapy Code Descriptions/Definitions Functional [place] Measure: 0=Not Assessed/NA 4=Minimal Assistance 1=Total Assistance 5=Supervision or Setup 2=Maximal Assistance 6=Modified [place] 3=Moderate Assistance 7=Complete [place] Therapy Quality Codes: 6 Independent with activity with or without an assistive device 5 Patient requires set up or clean up by helper. Patient completes activity by themselves 4 Supervision or touching assist (CGA). [place] provide cues , steadying assist 3 The helper provides less than half the effort to complete the activity 2 The helper provides more than half the effort to complete the activity 1 Dependent. The helper does all the effort to complete an activity 7 Patient refused to complete or attempt activity 9 The patient did not perform the activity before the current illness or injury 88 Not attempted due to Medical conditions or safety concerns Scootin Weight Bearing Full Weight Bearing Full Weight Bearing Exercises Supine Ex: Ankle pumps, Quad Set, Glut sets, Heel Slides, Short Arc Quads, Hip abd/add Supine Reps: 20 (2 sets) Treatments Pt completes Supine Ex in bed with RB as needed during for fatigue and pain. SAFETY PIN ASSEMBLING MACHINE OPERATOR discusses with pt independence vs safety for need for SNF, progress and expectations for ARU. Pt feels better after discussion, resting at end of tx. Pt has all needs met at end of tx., including call light. Assessment Current Status: Fair Progress Pt reports fatigue and not feeling well during tx. PT Short Term Goals Short Term Goals Time Frame: Dec 01, 2018 Transfers (B,C,W/C) (FIM): 4 Gait (FIM): 4 Distance (FIM): 3=150 ft Gait Distance Comment: 150 Gait Level of Assist: 4 Gait Assistive Device: FWW PT Senior Living Goals Senior Living Goals PT Teacher Instrumental Goals Time Frame: Dec 01, 2018 Transfers (B,C,W/C) (FIM): 6 Sit to Lying (QC): 6 Lying-Sitting on Side/Bed(QC): 6 Sit to Stand (QC): 6 Rollin Roll Left to Right (QC): 6 Chair/Quu-jk-Mchlp Xfer(QC): 6 Car Transfer (QC): 5 Gait (FIM): 5 Gait distance (FIM): 3=150 ft Distance: 150 Walk 10 feet (QC): 6 Walk 10ft-Uneven Surface(QC): 6 Walk 50ft with 2 Turns (QC): 6 Walk 150 ft (QC): 6 Gait Assistive Device: FWW Wheel 50 feet with 2 turns (QC: 9 Stairs (FIM): 9 1 Step (curb) (QC): 5 4 Steps (QC): 9 12 Steps (QC): 9 Stairs Level Of Assist: 5 Picking up an Object (QC): 9 PT Plan Problem List Problem List: Activity Tolerance, Functional Strength, Safety, Balance, Gait, Transfer, Bed Mobility Treatment/Plan Treatment Plan: Continue Plan of Care Treatment Plan: Bed Mobility, Education, Functional Activity [place], Functional Strength, Gait, Safety, Therapeutic Exercise Treatment Duration: Dec 01, 2018 Frequency: At least 5 of 7 days/Wk (IRF) Estimated Hrs Per Day: 1.5 hours per day Patient and/or Family Agrees t: Yes Safety Risks/Education Patient Education: Correct Positioning, Safety Issues Teaching Recipient: Patient Teaching Methods: Discussion Response to Teaching: Verbalize Understanding Time/GCodes Time In: 930 Time Out: 1015 Total Billed Treatment Time: 45 Total Billed Treatment 1, FA x2 (25m) & EX (20m) JORDEN ESPINOSA PTA Nov 23, 2018 12:18
--- NOTE | 2018-11-23 12:30 | NUR ---
Met with patient and patient's niece. Patient reports the swelling has gone down a little bit in her legs. Patient reports physical therapist gave her exercises to do while in bed, and that she did them throughout the night and it seemed to have helped. Informed patient and her niece that patient will have a venous ultrasound of both legs this afternoon. Both verbalize understanding. The biggest concern voiced by the patient and her niece is the bilateral lower extremity edema. The patient states if her legs weren't so swollen, "she could run a mile." Patient denies any history of lower extremity edema and denies taking diuretics at home. Niece requests patient's PCP, Dr. Acharya, come by and assess patient. This film writer will notify Dr. Miller of request. Discussed discharge planning with patient and her niece. Patient reports a field support representative from [facility] and a field support representative form [facility] met with her yesterday. The patient reports that, while she does not like it, moving into an [facility] is what needs to be done. Patient states she prefers [facility] and her niece is in agreement. Weekly team conference is tomorrow and discharge date will be discussed at that time.
--- NOTE | 2018-11-23 12:32 | Occupational Ther Daily Note ---
OT Current Status-Daily Note Subjective No pain. Appearance Pt. in bed. Declines showering as she showered yesterday. Pt. already dressed for the day. Agrees to therapy. Mental Status/Objective Patient Orientation: Person, Place, Time, Situation Therapy Code Descriptions/Definitions Functional [place] Measure: 0=Not Assessed/NA 4=Minimal Assistance 1=Total Assistance 5=Supervision or Setup 2=Maximal Assistance 6=Modified [place] 3=Moderate Assistance 7=Complete [place] ADL-Treatment Therapy Code Descriptions/Definitions Functional [place] Measure: 0=Not Assessed/NA 4=Minimal Assistance 1=Total Assistance 5=Supervision or Setup 2=Maximal Assistance 6=Modified [place] 3=Moderate Assistance 7=Complete [place] Therapy Quality Codes: 6 Independent with activity with or without an assistive device 5 Patient requires set up or clean up by helper. Patient completes activity by themselves 4 Supervision or touching assist (CGA). [place] provide cues , steadying assist 3 The helper provides less than half the effort to complete the activity 2 The helper provides more than half the effort to complete the activity 1 Dependent. The helper does all the effort to complete an activity 7 Patient refused to complete or attempt activity 9 The patient did not perform the activity before the current illness or injury 88 Not attempted due to Medical conditions or safety concerns Grooming (FIM): 3 (Pt. requires assistance in stance to adequately comb hair in back.) Lower Body Dressing (FIM): 2 Lower Body Dressing (QC): 2 On/Off Footwear (QC): 2 Toileting (FIM): 4 (CGA in stance. Pt. encouraged to cleanse front darya area on her own.) Toileting Hygiene (QC): 4 Transfers (B, C, W/C) (FIM): 4 (Min assist supine-sit and sit-stand.) Toilet/Commode Transfer (FIM): 4 Toilet Transfer (QC): 4 Pt. requests for her feet and legs to be wrapped before transfer out of bed. OT applies susan wraps to bilateral LE as they have been being applied. Doffed/donned slipper socks at well. Pt. transferred supine-sit with min assist and ambulated to toilet. After toileting task, stood at sink to wash hands but unable to comb hair. OT did this for her. Ambulated at slow gait with walker and CGA to therapy gym. Tolerated 15 minutes on arm bike at min resistance for increased overall endurance. No SOA noted. Ambulated back to room and transferred to toilet again, with increased time needed. After toileting task, pt. up in chair with all needs met and bilateral LE elevated. Education OT Patient Education: Correct positioning, Exercise program, Modified ADL techniques, Progress toward Goal/Update tx plan, Purpose of tx/functional activities, Reviewed precautions, Rehab process, Transfer techniques Teaching Recipient: Patient Teaching Methods: Demonstration, Discussion Response to Teaching: Verbalize Understanding, Return Demonstration OT Short Term Goals Short Term Goals Time Frame: Nov 30, 2018 Eating(FIM): 5 Grooming(FIM): 4 Bathing(FIM): 3 Upper Body Dressing(FIM): 3 Lower Body Dressing(FIM): 3 Toileting(FIM): 3 Transfers (B,C,W/C) (FIM): 4 Toilet/Commode Transfer(FIM): 4 Shower Transfer(FIM): 3 Additional Short Term Goals: 1-Demonstrate ADL Tasks, 2-Verbalize Understanding, 3-ImproveStrength/Cintia 1=Demonstrate adherence to instructed precautions during ADL tasks. 2=Patient will verbalize/demonstrate understanding of assistive devices/modifications for ADL. 3=Patient will improve strength/tolerance for activity to enable patient to perform ADL's. OT Fci Goals Fci Goals Time Frame: Dec 14, 2018 Eating (FIM): 7 Eating (QC): 6 Groomin Oral Hygiene (QC): 6 Bathing(FIM): 5 Shower/Bathe Self (QC): 4 Upper Body Dressing(FIM): 5 Upper Body Dressing (QC): 4 Lower Body Dressing(FIM): 5 Lower Body Dressing (QC): 4 On/Off Footwear (QC): 4 Toileting(FIM): 6 Toileting Hygiene (QC): 6 Transfers (B,C,W/C) (FIM): 6 Toilet/Commode Transfer(FIM): 6 Toilet/Commode Transfer (QC): 6 Shower Transfer(FIM): 5 Additional Goals: 1-Demonstrate ADL Tasks, 2-Verbalize Understanding, 3-Impr oveStrength/Cintia 1=Demonstrate adherence to instructed precautions during ADL tasks. 2=Patient will verbalize/demonstrate understanding of assistive devices/modifications for ADL. 3=Patient will improve strength/tolerance for activity to enable patient to perform ADL's. OT Education/Plan Problem List/Assessment Assessment: Decreased Activ Tolerance, Decreased UE Strength, Dependent Transfers, Impaired Bed Mobility, Impaired Funct Balance, Impaired I ADL's, Impa ired Self-Care Skills, Restricted Funct UE ROM Discharge Recommendations Plan/Recommendations: Continue POC Treatment Plan/Plan of Care Treatment,Training & Education: Yes Patient would benefit from OT for education, treatment and training to promote independence in ADL's, mobility, safety and/or upper extremity function for ADL's. Plan of Care: ADL Retraining, Functional Mobility, Group Exercise/Act as Ind, UE Funct Exercise/Act Treatment Duration: Dec 14, 2018 Frequency: At least 5 of 7 days/Wk (IRF) Estimated Hrs Per Day: 1.5 hours per day Agreement: Yes Rehab Potential: Fair Time/GCodes Start Time: 11:00 Stop Time: 12:00 Total Time Billed (hr/min): 60 Billed Treatment Time 1, ADL x 30minutes, Ex x 15minutes, FA x 15minutes CURT GILLESPIE OT Nov 23, 2018 12:32
[2018-11-23 14:22] VITALS: BP 131/72
--- NOTE | 2018-11-23 15:05 | Progress Note ---
[facility] 11/23/18 1505: Subjective Date Seen by a Provider: Nov 23, 2018 Time Seen by a Provider: 14:58 Subjective/Events-last exam Hypotensive but asymptomatic clinically restarting Furosemide and KCl Tomorrow DENIS wrap helpful Pt to have Venous U/S r/o DVT Started on bisacodyl today Review of Systems General: No Chills, No Night Sweats HEENT: No Head Aches Cardiovascular: No: Chest Pain, Palpitations Gastrointestinal: No: Nausea, Vomiting Objective Exam Last Set of Vital Signs Vital Signs Date Time Temp Pulse Resp B/P (MAP) Pulse Ox O2 Delivery O2 Flow Rate FiO2 11/23/18 14:22 36.4 83 20 131/72 100 Room Air Capillary Refill : I&O Intake and Output 11/23/18 00:00 Intake Total 1170 ml Balance 1170 ml Intake Oral 1170 ml # Voids 7 General: Alert, Oriented X3, Cooperative, No Acute Distress HEENT: Other (Hematomas to right forhead & periorbital region, neck) Neck: Supple Lungs: Clear to Auscultation, Normal Air Movement Heart: Regular Rate, Normal S1, Normal S2, No Murmurs Skin: No Rashes Assessment/Plan Assessment/Plan Assess & Plan/Chief Complaint IRF protocols BM regimen to be maintained Pain control Continue to Use DENIS Wraps + furosemide & KCl Monitor BUN and Cr continue to Monitor Hgb Continue PT/OT/Group therapy regimen DVT prophylaxis. f/u on venous U/S Follow pt's assisted living situation with Social workers Clinical Quality Measures DVT/VTE Risk/Contraindication: Risk Factor Score Per Nursin RFS Level Per Nursing on Admit: 4+=Very High RACHEAL MEJIA DO 11/23/18 1646: Supervisory-Addendum Brief Verification & Attestation Participated in pt care: history, MDM, physical Personally performed: exam, history, MDM, supervision of care Care discussed with: Medical Student Procedures: n/a Results interpretation: Verified all documentation Verification and Attestation of Medical Student E/M Service A medical student performed and documented this service in my presence. I reviewed and verified all information documented by the medical student and made modifications to such information, when appropriate. I personally performed the physical exam and medical decision making. Racheal Mejia Nov 23, 2018,16:45 [facility] Nov 23, 2018 15:05 RACHEAL MEJIA DO Nov 23, 2018 16:46
[2018-11-23] MEDS ORDERED: APIXABAN 5 MG (ELIQUIS) TABLET PO NR (15:30)
--- NOTE | 2018-11-23 15:36 | Therapy Group Daily Note ---
Therapy Daily Group Note Patient Education Topic Home Safety Session Ratio (pt:therapist): 4:1 Goal of Session: Home Safety Strategies, Memory Strategies Goal Met for this Session: Yes Pt Benefit of Group: Contributions to Others, F/U Use of Strategies @Home, Increased Functional Safety, Improved Cognition, Recognition of Peers, Socialization Other/Notes Pt ambulated to Group via FWW. Group consisted of introduction (name, where you're from, and home safety question). Pt shared appropriate and was activity listening and engaging with peers. Group therapy with focused on home safety and cognitive trivia. Then participated collectively with group for education regarding home safety strategies, adaptive equipment, and further education on discharge planning. This group also contained trivia pertaining to history, thus engaging in memory and knowledge. Pt ambulated back to room to rest, call light within reach, all needs met. Start Time: 13:00 Stop Time: 14:15 Total Billed Treatment Time: 75 Total Billed Treatment 1, GRP LETICIAJORDEN HANNA AGRONOMY PROFESSOR Nov 23, 2018 15:36
--- NOTE | 2018-11-23 15:36 | Diagnostic Imaging Report ---
PROCEDURE: US Venous Lower Ext [place]. TECHNIQUE: Multiple real-time grayscale images were obtained over the lower extremities in various projections, bilaterally. Additional duplex Doppler and color Doppler images were also obtained. INDICATION: Bilateral lower extremity edema. FINDINGS: Extensive bilateral DVT is present. There appears to be occlusive thrombus involving bilateral common femoral, superficial femoral and popliteal veins. Calf veins could not be evaluated due to patient body habitus. There is also thrombus identified in the superficial femoral veins bilaterally, in particular, greater saphenous veins at the ankles bilaterally. No fluid collections are seen. IMPRESSION: Extensive bilateral lower extremity DVT. Dictated by: Dictated on workstation # [id number]
--- NOTE | 2018-11-23 21:39 | Progress Note - Hospitalist ---
[facility] 11/23/182138: Progress Note Pt continues to have bilat LE swelling. Requires much assistance with ADLs. Pt lives alone and has no one to help her at home with ADLs and ambulating. 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 She is a poor candidate for d/c at this time. RACHEAL MILLER DO 11/24/18 1528: Supervisory-Addendum Brief Verification & Attestation Participated in pt care: history, MDM, physical Personally performed: exam, history, MDM, supervision of care Care discussed with: Medical Student Procedures: n/a Results interpretation: Verified all documentation Reviewed above and since she has h/o DVT's in the past and has filter in place and placed on OAC for treatment and hgb stable and increased and no evidence of bleeding I have assessed her to be ready for DC and stable enough to go to [place]. Verification and Attestation of Medical Student E/M Service A medical student performed and documented this service in my presence. I reviewed and verified all information documented by the medical student and made modifications to such information, when appropriate. I personally performed the physical exam and medical decision making. Racheal Miller, Nov 24, 2018,15:28 [facility] Nov 23, 2018 21:39 RACHEAL MILLER DO Nov 24, 2018 15:28
[2018-11-23] MEDS: APIXABAN 5 MG (ELIQUIS) TABLET PO SCH (21:50)
[2018-11-23] MEDS: POLYETHYLENE GLYCOL 17 GM (MIRALAX) PACK PO SCH (21:51)
[2018-11-24 05:49] LABS: HEMOGLOBIN 8.5 G/DL (11.5-16.0); MEAN PLATELET VOLUME 9.1 FL (7.4-10.4); RED CELL DISTRIBUTION WIDTH 15.6 % (10.0-14.5)
[2018-11-24 05:55] VITALS: BP 100/69
[2018-11-24 06:10] LABS: CALCIUM 8.6 MG/DL (8.5-10.1); CREATININE SERUM 1.07 MG/DL (0.60-1.30); POTASSIUM 4.3 MMOL/L (3.6-5.0); TOTAL PROTEIN 6.1 GM/DL (6.4-8.2)
[2018-11-24] MEDS: PANTOPRAZOLE 40 MG (PROTONIX) TAB PO SCH (06:14)
[2018-11-24] MEDS: KCL 10 MEQ TAB (MICRO K) PO SCH (06:14)
--- NOTE | 2018-11-24 09:32 | PM&R Progress Note ---
Subjective HPI/CC On Admission Date Seen by Provider: Nov 24, 2018 Time Seen by Provider: 09:30 CC: Debility following fall HPI: This is a 81yoWF clinic Pt of Dr. Acharya with a PMH of multiple falls in the past and placed in inpatient rehab earlier this year for a fall that recently was discontinued off Coumadin that she had been on for many years for DVT history but she has a Moose filter in place because of her recent fall, then she suffered another fall, falling on the right side of her face and then with acute onset of elevated creatinine renal failure requiring transfer to [facility] because [address] was on diversion, did well with IV fluids, creatinine returned back to 1.0 and Pt was monitored closely, PT and OT consulted and she was found to be in need for intensive therapy in order to return home. Lower e xtremity edema was managed with low-dose Lasix and Potassium along with wide denis wraps. Bowels returned back to normal after multiple laxatives that resolved the issue. Her prior level of functioning was with the use of assistive devices at home but she has a history of multiple falls and will inquire if she is willing to go to assistive living which would serve her a lot better and provide her wi th a little bit more support but she likely will want to return home to live independently so will need to aggressively treat her in need to regain hr independence of ADLs and ambulation in order to return home. 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 Eliquis started at 5mg instead of the 10 twice a day for three weeks because of the low hgb and risk for bleeds and falls Evacuated her bowels yesterday Weight loss of 2 lbs DENIS wraps will be maintained since they are loosely binding her, she has a filter anyway but there seems to be no concern about circulatory compromise at this time and it will lessen the edema she has acute on chronic She has agreed to go to [facility] Fall risk continues Conferred with RN Reviewed therapy notes Checked meds and labs Review of Systems General: Fatigue Cardiovascular: Edema Musculoskeletal: leg pain Objective Exam Vital Signs Vital Signs Date Time Temp Pulse Resp B/P (MAP) Pulse Ox O2 Delivery O2 Flow Rate FiO2 11/24/18 17:25 36.9 72 18 109/55 100 Room Air Capillary Refill : General Appearance: No Apparent Distress, WD/WN, Chronically ill, Obese HEENT: PERRL/EOMI, Pharynx Normal, Moist Mucous Membranes, Other (ecchymosis right facial contusion improved) Neck: Full Range of Motion, Normal Inspection, Non Tender, Supple Respiratory: Chest Non Tender, Lungs Clear, Normal Breath Sounds, No Accessory Muscle Use, No Respiratory Distress Cardiovascular: Regular Rate, Rhythm, No Gallop, No JVD, No Murmur Gastrointestinal: Normal Bowel Sounds, No Organomegaly, No Pulsatile Mass, Non Tender, Soft Back: Normal Inspection, No CVA Tenderness, No Vertebral Tenderness Extremity: Normal Capillary Refill, Normal Inspection, Normal Range of Motion, Non Tender, No Calf Tenderness, Pedal Edema Neurologic/Psychiatric: Alert, Oriented x3, No Motor/Sensory Deficits, Normal Mood/Affect Skin: Normal Color, Warm/Dry Lymphatic: No Adenopathy Results/Procedures Lab Laboratory Tests 11/24/18 05:30 Patient resulted labs reviewed. FIM Transfers Therapy Code Descriptions/Definitions Functional [place] Measure: 0=Not Assessed/NA 4=Minimal Assistance 1=Total Assistance 5=Supervision or Setup 2=Maximal Assistance 6=Modified [place] 3=Moderate Assistance 7=Complete [place] Therapy Quality Codes: 6 Independent with activity with or without an assistive device 5 Patient requires set up or clean up by helper. Patient completes activity by themselves 4 Supervision or touching assist (CGA). [place] provide cues , steadying assist 3 The helper provides less than half the effort to complete the activity 2 The helper provides more than half the effort to complete the activity 1 Dependent. The helper does all the effort to complete an activity 7 Patient refused to complete or attempt activity 9 The patient did not perform the activity before the current illness or injury 88 Not attempted due to Medical conditions or safety concerns Transfers (B, C, W/C) (FIM): 4 (Min assist supine-sit and sit-stand.) Scootin Rollin Roll Left to Right (QC): 3 Supine to/from Sit: 3 Sit to/from Stand: 4 Sit to Lying (QC): 3 Sit to Stand (QC): 3 Chair/[id number]-Isvgg Xfer(QC): 4 Bed to/from Chair: 4 Car Transfer (QC): 3 Gait Training Does the Patient Walk?: Yes Gait (FIM): 2 Distance (FIM): 8=229-75 ft ([id number]) Distance: 100 x2 Walk 10 feet (QC): 4 Walk 50 ft with 2 Turns(QC): 4 Walk 150 ft (QC): 1 Walking 10ft/uneven surface-QC: 4 Gait Level of Assist: 5 Gait Persons Needed: 1 Gait Assistive Device: FWW Wheelchair Training Does the Pt Use a Wheelchair?: Yes Wheelchair (FIM): 1 Wheelchair Distance: 1=up to 49 ft (10ftx2) Wheelchair Level of Assist: 2 Type of Wheelchair: Manual Stair Training Stairs (FIM): 0 #of Steps: 1 1 Step (curb) (QC): 3 4 Steps (QC): 9 12 Steps (QC): 09 Level of Assist: 3 Balance Picking up an Object (QC): 9 Mental Status/Objective Comprehension: 7 Expression: 7 Social Interaction: 7 Problem Solvin Memory: 7 ADL-Treatment Feedin Eating (QC): 7 Groomin (Pt. requires assistance in stance to adequately comb hair in back.) Oral Hygiene (QC): 6 Bathin (Pt requires grab bar, shower bench, and hand held shower head. Pt required assist to wash buttocks and hair. Pt able to rinse and dry self. ) Bathing Location: L Arm, R Arm, L Upper Leg, R Upper Leg, L Lower Leg (including foot), R Lower Leg (including foot), Chest, Abdomen, Perineal Area Shower/Bathe Self (QC): 4 Upper Extremity Dressin (Pt able to don/doff shirt by self, set up. Pt c/o decreased shldr ROM, encouragement to complete by self.) Upper Body Dressing (QC): 5 Lower Extremity Dressin Lower Body Dressing (QC): 2 On/Off Footwear (QC): 2 Toiletin (CGA in stance. Pt. encouraged to cleanse front darya area on her own.) Toileting Hygiene (QC): 4 Toilet/Commode Transfer: 4 Toilet Transfer (QC): 4 Shower: 4 (Pt requires FWW, grab bar and shower bench. CGA assist with stand to sit. ) Assessment/Plan Assessment and Plan Assess & Plan/Chief Complaint Plan: IRF protocol Pain control with APAP Fall risk prevention BM regimen to be maintained Voltaren gel for right shoulder pain [facility] tomorrow at DC Venous doppler USG 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 already has filter in place so maintain Eliquis shelter and close f/u PCP to monitor hgb (1) Debility Status: Acute (2) Acute renal failure Status: Acute Qualifiers: Acute renal failure type: unspecified Qualified Codes: N17.9 - Acute kidney failure, unspecified (3) Dehydration Status: Acute (4) Facial hematoma Status: Acute (5) Nausea Status: Acute (6) Fall Status: Acute Qualifiers: Encounter type: subsequent encounter Qualified Codes: W19.XXXD - Unspecified fall, subsequent encounter (7) Obesity Status: Chronic Qualifiers: Obesity type: due to excess calories Body mass index: BMI 40.0-44.9 (8) Traumatic hematoma of forehead Status: Acute Qualifiers: Encounter type: subsequent encounter Qualified Codes: S00.83XD - Contusion of other part of head, subsequent encounter (9) Edema Status: Acute Qualifiers: Edema type: localized Qualified Codes: R60.0 - Localized edema (10) Depression Status: Chronic Qualifiers: Depression Type: unspecified Qualified Codes: F32.9 - Major depressive disorder, single episode, unspecified (11) DVT (deep venous thrombosis) Status: Acute Qualifiers: DVT location: lower extremity Affected thrombotic vein of extremity: femoral Chronicity: acute Laterality: bilateral Qualified Codes: I82.413 - Acute embolism and thrombosis of femoral vein, bilateral (12) Moose filter in place Status: Chronic JOSEY MEJIA DO Nov 24, 2018 09:32
[2018-11-24] MEDS: APIXABAN 5 MG (ELIQUIS) TABLET PO SCH ×2 (09:49→20:58)
[2018-11-24] MEDS: FUROSEMIDE 20 MG (LASIX) TAB PO SCH (09:50)
[2018-11-24] MEDS: ACETAMINOPHEN 325 MG TABLET PO PRN ×2 (10:25→20:58)
--- NOTE | 2018-11-24 10:35 | NUR ---
Pastoral care visit.
[2018-11-24] MEDS: MICONAZOLE 2% POWDER (DESENEX AF) 90 GM TOP SCH ×2 (11:43→20:59)
--- NOTE | 2018-11-24 12:31 | Physical Therapy Daily Note ---
PT Daily Note-Current Subjective Pt sitting in chair in Therapy Gym after just finishing with OT tx. upon arrival. Pt agrees to PT. Pain Numeric Pain Scale: 5-Moderate Pain Location: Right, Left Location Body Site: Hip Pain Description: Ache, Tightness Mental Status Patient Orientation: Person, Place, Time, Situation Transfers Therapy Code Descriptions/Definitions Functional [place] Measure: 0=Not Assessed/NA 4=Minimal Assistance 1=Total Assistance 5=Supervision or Setup 2=Maximal Assistance 6=Modified [place] 3=Moderate Assistance 7=Complete [place] Therapy Quality Codes: 6 Independent with activity with or without an assistive device 5 Patient requires set up or clean up by helper. Patient completes activity by themselves 4 Supervision or touching assist (CGA). [place] provide cues , steadying assist 3 The helper provides less than half the effort to complete the activity 2 The helper provides more than half the effort to complete the activity 1 Dependent. The helper does all the effort to complete an activity 7 Patient refused to complete or attempt activity 9 The patient did not perform the activity before the current illness or injury 88 Not attempted due to Medical conditions or safety concerns Scootin Sit to/from Stand: 4 Sit to Stand (QC): 4 Weight Bearing Full Weight Bearing Full Weight Bearing Gait Training Does the Patient Walk?: Yes Gait (FIM): 5 Distance: 150' Walk 10 feet (QC): 5 Walk 50 ft with 2 Turns(QC): 5 Walk 150 ft (QC): 5 Gait Level of Assist: 5 Gait Persons Needed: 1 Gait Assistive Device: FWW Wheelchair Training Does the Pt Use a Wheelchair?: No Exercises Seated Therapy Exercises: Ankle pumps, Long arc quads, Hip flexion, Kicking activity, Glut set Seated Reps: 20 (2 sets) NuStep Minutes: 15 NuStep Workload: 4 Treatments Pt transfers from chair to standing and transfers to NuStep using for 15m at WL 4. Pt takes RB then completes Seated EX (2 sets). Pt returns to room to use restroom then rest in recliner. Dr Montes arrives to visit with pt at end of tx. Pt has all needs met, call light next to pt. Assessment Pt fatigues easily due to weakness and swelling in B LE. PT Short Term Goals Short Term Goals Time Frame: Dec 01, 2018 Transfers (B,C,W/C) (FIM): 4 Gait (FIM): 4 Distance (FIM): 3=150 ft Gait Distance Comment: 150 Gait Level of Assist: 4 Gait Assistive Device: FWW PT Video Control Engineer Goals Video Control Engineer Goals PT [facility] Goals Time Frame: Dec 01, 2018 Transfers (B,C,W/C) (FIM): 6 Sit to Lying (QC): 6 Lying-Sitting on Side/Bed(QC): 6 Sit to Stand (QC): 6 Rollin Roll Left to Right (QC): 6 Chair/[id number]-ph-Jxdwu Xfer(QC): 6 Car Transfer (QC): 5 Gait (FIM): 5 Gait distance (FIM): 3=150 ft Distance: 150 Walk 10 feet (QC): 6 Walk 10ft-Uneven Surface(QC): 6 Walk 50ft with 2 Turns (QC): 6 Walk 150 ft (QC): 6 Gait Assistive Device: FWW Wheel 50 feet with 2 turns (QC: 9 Stairs (FIM): 9 1 Step (curb) (QC): 5 4 Steps (QC): 9 12 Steps (QC): 9 Stairs Level Of Assist: 5 Picking up an Object (QC): 9 PT Plan Problem List Problem List: Activity Tolerance, Functional Strength Treatment/Plan Treatment Plan: Continue Plan of Care Treatment Plan: Bed Mobility, Education, Functional Activity Cintia, Functional Strength, Gait, Safety, Therapeutic Exercise Treatment Duration: Dec 01, 2018 Frequency: At least 5 of 7 days/Wk (IRF) Estimated Hrs Per Day: 1.5 hours per day Patient and/or Family Agrees t: Yes Safety Risks/Education Patient Education: Gait Training, Transfer Techniques, Correct Positioning, Safety Issues Teaching Recipient: Patient Teaching Methods: Discussion Response to Teaching: Verbalize Understanding Time/GCodes Time In: 1100 Time Out: 1200 Total Billed Treatment Time: 60 Total Billed Treatment 1, GT (15m), EX x2 (30m) & FA (15m) JORDEN ESPINOSA BUTTON BROACHER Nov 24, 2018 12:31
--- NOTE | 2018-11-24 12:32 | Occupational Ther Daily Note ---
OT Current Status-Daily Note Subjective No pain reported. However, pt. does report that she is irritated under breasts and between abdominal folds. Medicated powder applied. Appearance Pt. agrees to shower. Mental Status/Objective Patient Orientation: Person, Place, Time, Situation Therapy Code Descriptions/Definitions Functional [place] Measure: 0=Not Assessed/NA 4=Minimal Assistance 1=Total Assistance 5=Supervision or Setup 2=Maximal Assistance 6=Modified [place] 3=Moderate Assistance 7=Complete [place] ADL-Treatment Therapy Code Descriptions/Definitions Functional [place] Measure: 0=Not Assessed/NA 4=Minimal Assistance 1=Total Assistance 5=Supervision or Setup 2=Maximal Assistance 6=Modified [place] 3=Moderate Assistance 7=Complete [place] Therapy Quality Codes: 6 Independent with activity with or without an assistive device 5 Patient requires set up or clean up by helper. Patient completes activity by themselves 4 Supervision or touching assist (CGA). [place] provide cues , steadying assist 3 The helper provides less than half the effort to complete the activity 2 The helper provides more than half the effort to complete the activity 1 Dependent. The helper does all the effort to complete an activity 7 Patient refused to complete or attempt activity 9 The patient did not perform the activity before the current illness or injury 88 Not attempted due to Medical conditions or safety concerns Grooming (FIM): 4 (Pt. able to brush teeth and hair seated at sink. Requires min assist to comb hair thoroughly.) Oral Hygiene (QC): 4 Bathing (FIM): 3 (Mod assist overall to wash front and rear darya areas and to dry between folds.) Shower/Bathe Self (QC): 3 Upper Body (FIM): 5 Upper Body Dressing (QC): 4 Lower Body Dressing (FIM): 2 (Pt. required max assist to don brief, shorts, and socks. OT donned susan wraps to bilateral LE.) Lower Body Dressing (QC): 2 On/Off Footwear (QC): 2 Toileting (FIM): 4 Toileting Hygiene (QC): 4 Transfers (B, C, W/C) (FIM): 4 Toilet/Commode Transfer (FIM): 4 Toilet Transfer (QC): 4 Shower Transfer(FIM): 4 Other Treatment After ADLs in room, pt. ambulated to therapy gym. Required one rest break in dining. After resting approximately 5 minutes, pt. ambulated rest of way to gym. Sat and rested again. Completed bilateral hand squeezes with therapy sponge to increase UE strength. Education OT Patient Education: Exercise program, Modified ADL techniques, Progress toward Goal/Update tx plan, Purpose of tx/functional activities, Reviewed precautions, Rehab process, Transfer techniques Teaching Recipient: Patient Teaching Methods: Demonstration, Discussion Response to Teaching: Verbalize Understanding, Return Demonstration OT Short Term Goals Short Term Goals Time Frame: Nov 30, 2018 Eating(FIM): 5 Grooming(FIM): 4 Bathing(FIM): 3 Upper Body Dressing(FIM): 3 Lower Body Dressing(FIM): 3 Toileting(FIM): 3 Transfers (B,C,W/C) (FIM): 4 Toilet/Commode Transfer(FIM): 4 Shower Transfer(FIM): 3 Additional Short Term Goals: 1-Demonstrate ADL Tasks, 2-Verbalize Understanding, 3-ImproveStrength/Cintia 1=Demonstrate adherence to instructed precautions during ADL tasks. 2=Patient will verbalize/demonstrate understanding of assistive devices/modifications for ADL. 3=Patient will improve strength/tolerance for activity to enable patient to perform ADL's. OT Fpc Goals Insurance Follow Up Representative Goals Time Frame: Dec 14, 2018 Eating (FIM): 7 Eating (QC): 6 Groomin Oral Hygiene (QC): 6 Bathing(FIM): 5 Shower/Bathe Self (QC): 4 Upper Body Dressing(FIM): 5 Upper Body Dressing (QC): 4 Lower Body Dressing(FIM): 5 Lower Body Dressing (QC): 4 On/Off Footwear (QC): 4 Toileting(FIM): 6 Toileting Hygiene (QC): 6 Transfers (B,C,W/C) (FIM): 6 Toilet/Commode Transfer(FIM): 6 Toilet/Commode Transfer (QC): 6 Shower Transfer(FIM): 5 Additional Goals: 1-Demonstrate ADL Tasks, 2-Verbalize Understanding, 3-ImproveStrength/Cintia 1=Demonstrate adherence to instructed precautions during ADL tasks. 2=Patient will verbalize/demonstrate understanding of assistive devices/modifications for ADL. 3=Patient will improve strength/tolerance for activity to enable patient to per form ADL's. OT Education/Plan Problem List/Assessment Assessment: Decreased Activ Tolerance, Decreased UE Strength, Dependent Transfers, Impaired Bed Mobility, Impaired Funct Balance, Impaired I ADL's, Impaired Self-Care Skills, Restricted Funct UE ROM Discharge Recommendations Plan/Recommendations: Continue POC Therapy Discharge Recommendati: Assisted Living, Post Acute OT Equpiment Recommendations-D/C: Hip Kit Comment Pt. will need a walker Treatment Plan/Plan of Care Treatment,Training & Education: Yes Patient would benefit from OT for education, treatment and training to promote independence in ADL's, mobility, safety and/or upper extremity function for ADL's. Plan of Care: ADL Retraining, Functional Mobility, Group Exercise/Act as Ind, UE Funct Exercise/Act Treatment Duration: Dec 14, 2018 Frequency: At least 5 of 7 days/Wk (IRF) Estimated Hrs Per Day: 1.5 hours per day Agreement: Yes Rehab Potential: Fair Time/GCodes Start Time: 09:30 Stop Time: 11:00 Total Time Billed (hr/min): 90 Billed Treatment Time 1, ADL x 60minutes, FA x 30minutes CURT GILLESPIE OT Nov 24, 2018 12:32
--- NOTE | 2018-11-24 15:46 | Physical Therapy Daily Note ---
PT Daily Note-Current Subjective Pt asleep in recliner upon arrival. Pt is difficult to awaken then reports needing to use restroom. Pain Numeric Pain Scale: 5-Moderate Pain Location: Right, Left Location Body Site: Calf Pain Description: Tightness Mental Status Patient Orientation: Person, Place, Time, Situation Transfers Therapy Code Descriptions/Definitions Functional [place] Measure: 0=Not Assessed/NA 4=Minimal Assistance 1=Total Assistance 5=Supervision or Setup 2=Maximal Assistance 6=Modified [place] 3=Moderate Assistance 7=Complete [place] Therapy Quality Codes: 6 Independent with activity with or without an assistive device 5 Patient requires set up or clean up by helper. Patient completes activity by themselves 4 Supervision or touching assist (CGA). [place] provide cues , steadying assist 3 The helper provides less than half the effort to complete the activity 2 The helper provides more than half the effort to complete the activity 1 Dependent. The helper does all the effort to complete an activity 7 Patient refused to complete or attempt activity 9 The patient did not perform the activity before the current illness or injury 88 Not attempted due to Medical conditions or safety concerns Scootin Sit to/from Stand: 5 Sit to Stand (QC): 5 Weight Bearing Full Weight Bearing Full Weight Bearing Wheelchair Training Does the Pt Use a Wheelchair?: No Treatments Pt is finally awoken and needs to use restroom. Pt transfers from recliner to standing at A after a couple of attempts. Pt uses restroom, needing assistance for wiping as well as doffing/donning brief and shorts. Pt returns to recliner to rest at end of tx with all needs met, call light in hand. Assessment Current Status: Good Progress Pt is improving with strength and independence of tasks although still would move better with less swelling. PT Short Term Goals Short Term Goals Time Frame: Dec 01, 2018 Transfers (B,C,W/C) (FIM): 4 Gait (FIM): 4 Distance (FIM): 3=150 ft Gait Distance Comment: 150 Gait Level of Assist: 4 Gait Assistive Device: FWW PT Cocoa Butter Filter Operator Goals Cocoa Butter Filter Operator Goals PT Long-Term Goals Time Frame: Dec 01, 2018 Transfers (B,C,W/C) (FIM): 6 Sit to Lying (QC): 6 Lying-Sitting on Side/Bed(QC): 6 Sit to Stand (QC): 6 Rollin Roll Left to Right (QC): 6 Chair/Pwg-wp-Gblof Xfer(QC): 6 Car Transfer (QC): 5 Gait (FIM): 5 Gait distance (FIM): 3=150 ft Distance: 150 Walk 10 feet (QC): 6 Walk 10ft-Uneven Surface(QC): 6 Walk 50ft with 2 Turns (QC): 6 Walk 150 ft (QC): 6 Gait Assistive Device: FWW Wheel 50 feet with 2 turns (QC: 9 Stairs (FIM): 9 1 Step (curb) (QC): 5 4 Steps (QC): 9 12 Steps (QC): 9 Stairs Level Of Assist: 5 Picking up an Object (QC): 9 PT Plan Problem List Problem List: Activity Tolerance, Functional Strength, Gait Treatment/Plan Treatment Plan: Continue Plan of Care Treatment Plan: Bed Mobility, Education, Functional Activity Cintia, Functional Strength, Gait, Safety, Therapeutic Exercise Treatment Duration: Dec 01, 2018 Frequency: At least 5 of 7 days/Wk (IRF) Estimated Hrs Per Day: 1.5 hours per day Patient and/or Family Agrees t: Yes Safety Risks/Education Patient Education: Transfer Techniques, Correct Positioning, Safety Issues Teaching Recipient: Patient Teaching Methods: Discussion Response to Teaching: Verbalize Understanding Time/GCodes Time In: 1430 Time Out: 1500 Total Billed Treatment Time: 30 Total Billed Treatment 1, FA x2 (30m) JORDEN ESPINOSA PTA Nov 24, 2018 15:46
[2018-11-24 17:25] VITALS: BP 109/55
--- NOTE | 2018-11-24 17:25 | NUR ---
EMPLOYMENT APPEALS EXAMINER met with patient to review team conference summary. As patient is set up to admit to [facility] assisted living, is ambulating approximately 150 feet with standby assistance, completing transfers and lower body ADLs with min assistance team is recommended patient proceed with discharge tomorrow. Patient was very upset with this recommendation as she was recently diagnosed with bilateral DVTs, has large amounts of edema and had 2 near falls this day. Patient does not does not believe that she is safe to discharge at this time and is hopeful to remain in ARU for additional strengthening until 916. Patient was informed by Dr. Acharya that she would likely remain within the hospital for approx 1 additional week due to newly diagnosed DTVs. Upon further discussion patient feels that she has declined in function does not feel confident in her abilities, as she cannot feel her lower extremities. EMPLOYMENT APPEALS EXAMINER reassured patient that all medical and physical needs can be managed at [facility]; however, patient intends to remain hesitant. EMPLOYMENT APPEALS EXAMINER informed patient of the right to appeal discharge, she will speak with her family in regards to this, if additional days will not be approved. EMPLOYMENT APPEALS EXAMINER informed Dr. Miller and therapy staff request to prolonged discharge until 916.
[2018-11-24] MEDS: POLYETHYLENE GLYCOL 17 GM (MIRALAX) PACK PO SCH (20:58)
--- NOTE | 2018-11-24 21:19 | NUR ---
This RN placed order for venous doppler on 11/22/18 as STAT, (see order) as soon as this RN was informed of the order. Dr. Miller had communicated the order for doppler to be done to [facility]hab [facility] Multimedia Educational Specialist, (see note) after notified of family concern, but, this RN was not notified of the order. This RN notified [facility] vendor quality supervisor of new order for doppler, & called the U/S department, but, they had already left for the day. Notified Dr. Miller of this. OK'd to be done on 11/23/18. This RN notified Armin Lange, PT morning of 11/23/18 of order for doppler so therapy could be scheduled to accommodate procedure.
[2018-11-25] MEDS: ACETAMINOPHEN 325 MG TABLET PO PRN ×2 (05:46→16:23)
[2018-11-25] MEDS: PANTOPRAZOLE 40 MG (PROTONIX) TAB PO SCH (05:46)
[2018-11-25 06:30] VITALS: BP 114/68
--- NOTE | 2018-11-25 07:14 | Progress Note ---
[facility] 11[facility]25[facility] 0714: Subjective Date Seen by a Provider: Nov 25, 2018 Time Seen by a Provider: 07:10 Subjective/Events-last exam PT stable this morning Slept well Had BMs No acute pain DENIS wraps will be maintained Review meds and labs, and other provider notes Anxiety about going to assisted living Does not feel confident to rise from chair by herself Review of Systems HEENT: No Head Aches Cardiovascular: No: Chest Pain, Palpitations Gastrointestinal: No: Nausea, Vomiting, Diarrhea, Constipation Genitourinary: Incontinence Objective Exam Last Set of Vital Signs Vital Signs Date Time Temp Pulse Resp B/P (MAP) Pulse Ox O2 Delivery O2 Flow Rate FiO2 11/25/18 06:30 36.6 74 14 114/68 95 Room Air Capillary Refill : I&O Intake and Output 11/25/18 00:00 Intake Total 1380 ml Balance 1380 ml Intake Oral 1380 ml # Voids 7 # Bowel Movements 2 General: Alert, Oriented X3, Cooperative, No Acute Distress Lungs: Clear to Auscultation, Normal Air Movement Heart: Regular Rate, Normal S1, Normal S2, No Murmurs Skin: No Rashes Assessment/Plan Assessment/Plan Assess & Plan/Chief Complaint IRF protocols Bilat LE DVT BM regimen to be maintained Pain control conservatives Continue to Use DENIS Wraps Eliquis 5mg BID Pt to be D/C to [facility] Clinical Quality Measures DVT/VTE Risk/Contraindication: Risk Factor Score Per Nursin RFS Level Per Nursing on Admit: 4+=Very High RACHEAL MEJIA DO 11/26/18 1538: Supervisory-Addendum Brief Verification & Attestation Participated in pt care: history, MDM, physical Personally performed: exam, history, MDM, supervision of care Care discussed with: Medical Student Procedures: n/a Results interpretation: Verified all documentation Verification and Attestation of Medical Student E/M Service A medical student performed and documented this service in my presence. I reviewed and verified all information documented by the medical student and made modifications to such information, when appropriate. I personally performed the physical exam and medical decision making. Racheal Mejia Nov 26, 2018,15:38 SANCHEZRASHARDJOYCE [facility] Nov 25, 2018 07:14 RACHEAL MEJIA DO Nov 26, 2018 15:38
--- NOTE | 2018-11-25 08:18 | NUR ---
CHIEF LEGAL OFFICER received notification from Dr. Miller of approval to prolong discharge. Barring any further complications, patient will discharge on to [facility]. Patient's niece will provide transportation. CHIEF LEGAL OFFICER updated assisted living, patient and family. Addendum: 11/26/18 at 1345 by ERASTO DIAZ SS Patient selected [facility] [place] for PT/OT services. Per Garrett at [facility], patient is accepted for services.
--- NOTE | 2018-11-25 09:02 | Occupational Ther Daily Note ---
OT Current Status-Daily Note Subjective No pain reported. Mental Status/Objective Patient Orientation: Person, Place, Time, Situation Therapy Code Descriptions/Definitions Functional [place] Measure: 0=Not Assessed/NA 4=Minimal Assistance 1=Total Assistance 5=Supervision or Setup 2=Maximal Assistance 6=Modified [place] 3=Moderate Assistance 7=Complete [place] ADL-Treatment Therapy Code Descriptions/Definitions Functional [place] Measure: 0=Not Assessed/NA 4=Minimal Assistance 1=Total Assistance 5=Supervision or Setup 2=Maximal Assistance 6=Modified [place] 3=Moderate Assistance 7=Complete [place] Therapy Quality Codes: 6 Independent with activity with or without an assistive device 5 Patient requires set up or clean up by helper. Patient completes activity by themselves 4 Supervision or touching assist (CGA). [place] provide cues , steadying assist 3 The helper provides less than half the effort to complete the activity 2 The helper provides more than half the effort to complete the activity 1 Dependent. The helper does all the effort to complete an activity 7 Patient refused to complete or attempt activity 9 The patient did not perform the activity before the current illness or i njury 88 Not attempted due to Medical conditions or safety concerns Eating (FIM): 6 Eating (QC): 6 Grooming (FIM): 4 Oral Hygiene (QC): 5 (set up) Bathing (FIM): 3 Shower/Bathe Self (QC): 3 Upper Body (FIM): 5 Upper Body Dressing (QC): 4 Lower Body Dressing (FIM): 2 Lower Body Dressing (QC): 2 On/Off Footwear (QC): 2 Toileting (FIM): 4 Toileting Hygiene (QC): 4 Transfers (B, C, W/C) (FIM): 4 Toilet/Commode Transfer (FIM): 4 Toilet Transfer (QC): 4 Shower Transfer(FIM): 4 Other Treatment Pt. requires assistance in shower to wash darya area and dry between abdominal folds. Max assist for LE dressing due to fatigue. Transferred to chair at sink to complete grooming tasks. Education OT Patient Education: Correct positioning, Modified ADL techniques, Progress toward Goal/Update tx plan, Purpose of tx/functional activities, Reviewed precautions, Rehab process, Transfer techniques Teaching Recipient: Patient Teaching Methods: Demonstration, Discussion Response to Teaching: Verbalize Understanding, Return Demonstration OT Short Term Goals Short Term Goals Time Frame: Nov 30, 2018 Eating(FIM): 5 Grooming(FIM): 4 Bathing(FIM): 3 Upper Body Dressing(FIM): 3 Lower Body Dressing(FIM): 3 Toileting(FIM): 3 Transfers (B,C,W/C) (FIM): 4 Toilet/Commode Transfer(FIM): 4 Shower Transfer(FIM): 3 Additional Short Term Goals: 1-Demonstrate ADL Tasks, 2-Verbalize Understanding, 3-ImproveStrength/Cintia 1=Demonstrate adherence to instructed precautions during ADL tasks. 2=Patient will verbalize/demonstrate understanding of assistive devices /modifications for ADL. 3=Patient will improve strength/tolerance for activity to enable patient to perform ADL's. OT Director Decision Support Goals [facility] Goals Time Frame: Dec 14, 2018 Eating (FIM): 7 Eating (QC): 6 Groomin Oral Hygiene (QC): 6 Bathing(FIM): 5 Shower/Bathe Self (QC): 4 Upper Body Dressing(FIM): 5 Upper Body Dressing (QC): 4 Lower Body Dressing(FIM): 5 Lower Body Dressing (QC): 4 On/Off Footwear (QC): 4 Toileting(FIM): 6 Toileting Hygiene (QC): 6 Transfers (B,C,W/C) (FIM): 6 Toilet/Commode Transfer(FIM): 6 Toilet/Commode Transfer (QC): 6 Shower Transfer(FIM): 5 Additional Goals: 1-Demonstrate ADL Tasks, 2-Verbalize Understanding, 3- ImproveStrength/Cintia 1=Demonstrate adherence to instructed precautions during ADL tasks. 2=Patient will verbalize/demonstrate understanding of assistive devices/modifications for ADL. 3=Patient will improve strength/tolerance for activity to enable patient to perform ADL's. OT Education/Plan Problem List/Assessment Assessment: Decreased Activ Tolerance, Decreased UE Strength, Dependent Transfers, Impaired Funct Balance, Impaired I ADL's, Impaired Self-Care Skills, Restricted Funct UE ROM Discharge Recommendations Plan/Recommendations: Continue POC Therapy Discharge Recommendati: Assisted Living Treatment Plan/Plan of Care Treatment,Training & Education: Yes Patient would benefit from OT for education, treatment and training to promote independence in ADL's, mobility, safety and/or upper extremity function for ADL's. Plan of Care: ADL Retraining, Functional Mobility, Group Exercise/Act as Ind, UE Funct Exercise/Act Treatment Duration: Dec 14, 2018 Frequency: At least 5 of 7 days/Wk (IRF) Estimated Hrs Per Day: 1.5 hours per day Agreement: Yes Rehab Potential: Fair Time/GCodes Start Time: 08:00 Stop Time: 09:00 Total Time Billed (hr/min): 60 Billed Treatment Time 1, ADL x 4 CURT GILLESPIE OT Nov 25, 2018 09:02
[2018-11-25] MEDS: MICONAZOLE 2% POWDER (DESENEX AF) 90 GM TOP SCH ×2 (09:28→21:00)
[2018-11-25] MEDS: APIXABAN 5 MG (ELIQUIS) TABLET PO SCH ×2 (09:28→20:55)
--- NOTE | 2018-11-25 09:39 | PM&R Progress Note ---
Subjective HPI/CC On Admission Date Seen by Provider: Nov 25, 2018 Time Seen by Provider: 09:00 CC: Debility following fall HPI: This is a 81yoWF clinic Pt of Dr. 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 Lower extremity edema was managed with low-dose Lasix and Potassium along with wide susan wraps. Bowels returned back to normal after multiple laxatives that resolved the issue. Her prior level of functioning was with the use of assistive devices at home but she has a history of multiple falls and will inquire if she is willing to go to assistive living which would serve her a lot better and provide her with a little bit more support but she likely will want to return home to live independently so will need to aggressively treat her in need to regain hr independence of ADLs and ambulation in order to return home. Subjective/Events-last exam Discharge is planned for Thursday to assisted living. Dr. Acharya did come by and talked to her for about 30 minutes and she felt good about that. No major issues. Talked to her about her blood thinning Eliquis and her continued fall risk. Bowels are moving well. Fall risk continues Conferred with RN Reviewed therapy notes Checked meds and labs Objective Exam Vital Signs Vital Signs Date Time Temp Pulse Resp B/P (MAP) Pulse Ox O2 Delivery O2 Flow Rate FiO2 11/26/18 09:00 Room Air 11/26/18 06:09 36.0 68 16 105/63 95 Capillary Refill : General Appearance: No Apparent Distress, WD/WN, Chronically ill, Obese HEENT: PERRL/EOMI, Pharynx Normal, Moist Mucous Membranes, Other (ecchymosis right facial contusion improved) Neck: Full Range of Motion, Normal Inspection, Non Tender, Supple Respiratory: Chest Non Tender, Lungs Clear, Normal Breath Sounds, No Accessory Muscle Use, No Respiratory Distress Cardiovascular: Regular Rate, Rhythm, No Gallop, No JVD, No Murmur Gastrointestinal: Normal Bowel Sounds, No Organomegaly, No Pulsatile Mass, Non Tender, Soft Back: Normal Inspection, No CVA Tenderness, No Vertebral Tenderness Extremity: Normal Capillary Refill, Normal Inspection, Normal Range of Motion, Non Tender, No Calf Tenderness, Pedal Edema Neurologic/Psychiatric: Alert, Oriented x3, No Motor/Sensory Deficits, Normal Mood/Affect Skin: Normal Color, Warm/Dry Lymphatic: No Adenopathy Results/Procedures Lab Patient resulted labs reviewed. FIM Transfers Therapy Code Descriptions/Definitions Functional [place] Measure: 0=Not Assessed/NA 4=Minimal Assistance 1=Total Assistance 5=Supervision or Setup 2=Maximal Assistance 6=Modified [place] 3=Moderate Assistance 7=Complete [place] Therapy Quality Codes: 6 Independent with activity with or without an assistive device 5 Patient requires set up or clean up by helper. Patient completes activity by themselves 4 Supervision or touching assist (CGA). [place] provide cues , steadying assist 3 The helper provides less than half the effort to complete the activity 2 The helper provides more than half the effort to complete the activity 1 Dependent. The helper does all the effort to complete an activity 7 Patient refused to complete or attempt activity 9 The patient did not perform the activity before the current illness or injury 88 Not attempted due to Medical conditions or safety concerns Transfers (B, C, W/C) (FIM): 4 Scootin Rollin Roll Left to Right (QC): 3 Supine to/from Sit: 3 Sit to/from Stand: 5 Sit to Lying (QC): 3 Sit to Stand (QC): 5 Chair/Tpg-mb-Kjike Xfer(QC): 4 Bed to/from Chair: 4 Car Transfer (QC): 3 Gait Training Does the Patient Walk?: Yes Gait (FIM): 5 Distance (FIM): 7=631-59 ft ([id number]) Distance: 150' Walk 10 feet (QC): 5 Walk 50 ft with 2 Turns(QC): 5 Walk 150 ft (QC): 5 Walking 10ft/uneven surface-QC: 4 Gait Level of Assist: 5 Gait Persons Needed: 1 Gait Assistive Device: FWW Wheelchair Training Does the Pt Use a Wheelchair?: No Wheelchair (FIM): 1 Wheelchair Distance: 1=up to 49 ft (10ftx2) Wheelchair Level of Assist: 2 Type of Wheelchair: Manual Stair Training Stairs (FIM): 0 #of Steps: 1 1 Step (curb) (QC): 3 4 Steps (QC): 9 12 Steps (QC): 09 Level of Assist: 3 Balance Picking up an Object (QC): 9 Mental Status/Objective Comprehension: 7 Expression: 7 Social Interaction: 7 Problem Solvin Memory: 7 ADL-Treatment Feedin Eating (QC): 6 Groomin Oral Hygiene (QC): 5 (set up) Bathin Bathing Location: L Arm, R Arm, L Upper Leg, R Upper Leg, L Lower Leg (inc luding foot), R Lower Leg (including foot), Chest, Abdomen, Perineal Area Shower/Bathe Self (QC): 3 Upper Extremity Dressin Upper Body Dressing (QC): 4 Lower Extremity Dressin Lower Body Dressing (QC): 2 On/Off Footwear (QC): 2 Toiletin Toileting Hygiene (QC): 4 Toilet/Commode Transfer: 4 Toilet Transfer (QC): 4 Shower: 4 Assessment/Plan Assessment and Plan Assess & Plan/Chief Complaint Plan: IRF protocol Pain control with APAP Fall risk prevention BM regimen to be maintained Voltaren gel for right shoulder pain [facility] tomorrow at [place] Venous doppler USG 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0-44.9 (8) Traumatic hematoma of forehead Status: Acute Qualifiers: Encounter type: subsequent encounter Qualified Codes: S00.83XD - Contusion of other part of head, subsequent encounter (9) Edema Status: Acute Qualifiers: Edema type: localized Qualified Codes: R60.0 - Localized edema (10) Depression Status: Chronic Qualifiers: Depression Type: unspecified Qualified Codes: F32.9 - Major depressive disorder, single episode, unspecified (11) DVT (deep venous thrombosis) Status: Acute Qualifiers: DVT location: lower extremity Affected thrombotic vein of extremity: femoral Chronicity: acute Laterality: bilateral Qualified Codes: I82.413 - Acute embolism and thrombosis of femoral vein, bilateral (12) Moose filter in place Status: Chronic JOSEY MEJIA DO Nov 25, 2018 09:39
--- NOTE | 2018-11-25 11:02 | Physical Therapy Daily Note ---
PT Daily Note-Current Subjective Pt sitting in recliner upon arrival. Pt agrees to PT. Mental Status Patient Orientation: Person, Place, Time, Situation Transfers Therapy Code Descriptions/Definitions Functional [place] Measure: 0=Not Assessed/NA 4=Minimal Assistance 1=Total Assistance 5=Supervision or Setup 2=Maximal Assistance 6=Modified [place] 3=Moderate Assistance 7=Complete [place] Therapy Quality Codes: 6 Independent with activity with or without an assistive device 5 Patient requires set up or clean up by helper. Patient completes activity by themselves 4 Supervision or touching assist (CGA). [place] provide cues , steadying assist 3 The helper provides less than half the effort to complete the activity 2 The helper provides more than half the effort to complete the activity 1 Dependent. The helper does all the effort to complete an activity 7 Patient refused to complete or attempt activity 9 The patient did not perform the activity before the current illness or injury 88 Not attempted due to Medical conditions or safety concerns Scootin Sit to/from Stand: 5 Sit to Stand (QC): 5 Weight Bearing Full Weight Bearing Full Weight Bearing Gait Training Does the Patient Walk?: Yes Gait (FIM): 5 Distance (FIM): 3=150 ft Distance: 150' Walk 10 feet (QC): 5 Walk 50 ft with 2 Turns(QC): 5 Walk 150 ft (QC): 5 Gait Level of Assist: 5 Gait Persons Needed: 1 Gait Assistive Device: FWW Pt fatigues easily and needs frequent RB. Wheelchair Training Does the Pt Use a Wheelchair?: No Treatments Pt transfers from recliner to standing and uses restroom. Pt needs PACKING MACHINE CAN FEEDER assistance for pulling up shorts as well as wiping. Pt then ambulates in hallway before RB. Pt completes Seated EX. Pt returns to room to use restroom again and rest. Pt has all needs met. Assessment Current Status: Fair Progress Pt takes extended time to complete tasks. Pt fatigues easily. PT Short Term Goals Short Term Goals Time Frame: Dec 01, 2018 Transfers (B,C,W/C) (FIM): 4 Gait (FIM): 4 Distance (FIM): 3=150 ft Gait Distance Comment: 150 Gait Level of Assist: 4 Gait Assistive Device: FWW PT Naphthalene Operator Helper Goals Naphthalene Operator Helper Goals PT Naphthalene Operator Helper Goals Time Frame: Dec 01, 2018 Transfers (B,C,W/C) (FIM): 6 Sit to Lying (QC): 6 Lying-Sitting on Side/Bed(QC): 6 Sit to Stand (QC): 6 Rollin Roll Left to Right (QC): 6 Chair/Sud-ob-Gctrd Xfer(QC): 6 Car Transfer (QC): 5 Gait (FIM): 5 Gait distance (FIM): 3=150 ft Distance: 150 Walk 10 feet (QC): 6 Walk 10ft-Uneven Surface(QC): 6 Walk 50ft with 2 Turns (QC): 6 Walk 150 ft (QC): 6 Gait Assistive Device: FWW Wheel 50 feet with 2 turns (QC: 9 Stairs (FIM): 9 1 Step (curb) (QC): 5 4 Steps (QC): 9 12 Steps (QC): 9 Stairs Level Of Assist: 5 Picking up an Object (QC): 9 PT Plan Problem List Problem List: Activity Tolerance, Functional Strength, Safety, Balance, Gait, Transfer Treatment/Plan Treatment Plan: Continue Plan of Care Treatment Plan: Bed Mobility, Education, Functional Activity Cintia, Functional Strength, Gait, Safety, Therapeutic Exercise Treatment Duration: Dec 01, 2018 Frequency: At least 5 of 7 days/Wk (IRF) Estimated Hrs Per Day: 1.5 hours per day Patient and/or Family Agrees t: Yes Safety Risks/Education Patient Education: Gait Training, Transfer Techniques, Correct Positioning, Safety Issues Teaching Recipient: Patient Teaching Methods: Discussion Response to Teaching: Verbalize Understanding Time/GCodes Time In: 1000 Time Out: 1100 Total Billed Treatment Time: 60 Total Billed Treatment 1, FA x2 (30m), EX (15m) & GT (15m) JORDEN ESPINOSA PACKING MACHINE CAN FEEDER Nov 25, 2018 11:02
[2018-11-25 16:30] VITALS: BP 118/67
[2018-11-25] MEDS: POLYETHYLENE GLYCOL 17 GM (MIRALAX) PACK PO SCH (20:56)
[2018-11-26] MEDS: ACETAMINOPHEN 325 MG TABLET PO PRN ×3 (00:36→17:35)
[2018-11-26 06:09] VITALS: BP 105/63
[2018-11-26] MEDS: PANTOPRAZOLE 40 MG (PROTONIX) TAB PO SCH (06:12)
[2018-11-26] MEDS: KCL 10 MEQ TAB (MICRO K) PO SCH (06:12)
[2018-11-26] MEDS: FUROSEMIDE 20 MG (LASIX) TAB PO SCH (08:31)
[2018-11-26] MEDS: MICONAZOLE 2% POWDER (DESENEX AF) 90 GM TOP SCH ×2 (08:31→20:32)
[2018-11-26] MEDS: APIXABAN 5 MG (ELIQUIS) TABLET PO SCH ×2 (08:31→20:31)
--- NOTE | 2018-11-26 09:57 | Physical Therapy Daily Note ---
PT Daily Note-Current Subjective Pt. stats she feels better and is ready to work. Pain Location: No Pain Reported Mental Status Patient Orientation: Normal For Age Transfers Therapy Code Descriptions/Definitions Functional [place] Measure: 0=Not Assessed/NA 4=Minimal Assistance 1=Total Assistance 5=Supervision or Setup 2=Maximal Assistance 6=Modified [place] 3=Moderate Assistance 7=Complete [place] Therapy Quality Codes: 6 Independent with activity with or without an assistive device 5 Patient requires set up or clean up by helper. Patient completes activity by themselves 4 Supervision or touching assist (CGA). [place] provide cues , steadying assist 3 The helper provides less than half the effort to complete the activity 2 The helper provides more than half the effort to complete the activity 1 Dependent. The helper does all the effort to complete an activity 7 Patient refused to complete or attempt activity 9 The patient did not perform the activity before the current illness or injury 88 Not attempted due to Medical conditions or safety concerns Transfers (B, C, W/C) (FIM): 5 Scootin Rollin Supine to/from Sit: 5 Sit to/from Stand: 5 Bed to/from Chair: 5 pt. needs step by step instruction for sit to sup and sup to sit as well as rolling. Pt. states she does not sleep in bed at home but sleeps in recliner and has fear of rolling out of bed Weight Bearing Full Weight Bearing Full Weight Bearing Gait Training Does the Patient Walk?: Yes Gait (FIM): 3 Distance (FIM): 3=150 ft (125,160') Gait Level of Assist: 5 Gait Persons Needed: 1 Gait Assistive Device: FWW slow, flexed at trunk, no LOB Exercises Supine Ex: Bridging, Ankle pumps, Quad Set, Rolling, Glut sets, Heel Slides, Short Arc Quads, Scooting, Straight leg raise, Hip abd/add Supine Reps: 15 emphasis on rolling and sup to sit etc with progress noted Assessment Current Status: Good Progress PT Short Term Goals Short Term Goals Time Frame: Dec 01, 2018 Transfers (B,C,W/C) (FIM): 4 Gait (FIM): 4 Distance (FIM): 3=150 ft Gait Distance Comment: 150 Gait Level of Assist: 4 Gait Assistive Device: FWW PT Snf Goals [employer] Web Application Developer Goals PT Snf Goals Time Frame: Dec 01, 2018 Transfers (B,C,W/C) (FIM): 6 Sit to Lying (QC): 6 Lying-Sitting on Side/Bed(QC): 6 Sit to Stand (QC): 6 Rollin Roll Left to Right (QC): 6 Chair/Sqp-an-Kyoaq Xfer(QC): 6 Car Transfer (QC): 5 Gait (FIM): 5 Gait distance (FIM): 3=150 ft Distance: 150 Walk 10 feet (QC): 6 Walk 10ft-Uneven Surface(QC): 6 Walk 50ft with 2 Turns (QC): 6 Walk 150 ft (QC): 6 Gait Assistive Device: FWW Wheel 50 feet with 2 turns (QC: 9 Stairs (FIM): 9 1 Step (curb) (QC): 5 4 Steps (QC): 9 12 Steps (QC): 9 Stairs Level Of Assist: 5 Picking up an Object (QC): 9 PT Plan Treatment/Plan Treatment Plan: Continue Plan of Care Treatment Plan: Bed Mobility, Education, Functional Activity Cintia, Functional Strength, Gait, Safety, Therapeutic Exercise Treatment Duration: Dec 01, 2018 Frequency: At least 5 of 7 days/Wk (IRF) Estimated Hrs Per Day: 1.5 hours per day Patient and/or Family Agrees t: Yes Safety Risks/Education Patient Education: Gait Training, Transfer Techniques, Correct Positioning, Disease Process, Safety Issues Teaching Recipient: Patient Teaching Methods: Demonstration, Discussion Response to Teaching: Verbalize Understanding, Return Demonstration, Eleuterio nforcement Needed Time/GCodes Time In: 900 Time Out: 1000 Total Billed Treatment Time: 60 Total Billed Treatment 1,FA30m,GT15m,EX15m ZION COLEY UTILITY LOCATOR Nov 26, 2018 09:57
--- NOTE | 2018-11-26 12:51 | Occupational Ther Daily Note ---
OT Current Status-Daily Note Subjective Pt sitting in chair, states she is feeling better. Agrees to therapy. Pt reports 3/10 pain in head and right shoulder. RN notified and provided medication. Mental Status/Objective Therapy Code Descriptions/Definitions Functional [place] Measure: 0=Not Assessed/NA 4=Minimal Assistance 1=Total Assistance 5=Supervision or Setup 2=Maximal Assistance 6=Modified [place] 3=Moderate Assistance 7=Complete [place] ADL-Treatment Pt declined shower today, but would like to sponge bathe and change clothes. Doff shirt with increased time secondary to right shoulder pain. Pt doffed clothing with SBA. Upper body bathing completed with SBA. Pt able to wash bilateral upper legs and darya area. Stood with supervision, but required assist to thoroughly wash buttocks. Lower legs not addressed secondary to DENIS wraps in place. Don pullover shirt with set up. Pt used production estimator to start Depends and pants over feet with min assist. Stood with SBA for balance during pant hike. Gait to restroom with FWW. Pt transferred to toilet with supervision. Pt able to manage clothing and complete toileting hygiene. Stood at sink to wash hands with SBA. Increased time for ADL tasks. Therapy Code Descriptions/Definitions Functional [place] Measure: 0=Not Assessed/NA 4=Minimal Assistance 1=Total Assistance 5=Supervision or Setup 2=Maximal Assistance 6=Modified [place] 3=Moderate Assistance 7=Complete [place] Therapy Quality Codes: 6 Independent with activity with or without an assistive device 5 Patient requires set up or clean up by helper. Patient completes activity by themselves 4 Supervision or touching assist (CGA). [place] provide cues , steadying assist 3 The helper provides less than half the effort to complete the activity 2 The helper provides more than half the effort to complete the activity 1 Dependent. The helper does all the effort to complete an activity 7 Patient refused to complete or attempt activity 9 The patient did not perform the activity before the current illness or injury 88 Not attempted due to Medical conditions or safety concerns Upper Body (FIM): 5 Upper Body Dressing (QC): 4 Lower Body Dressing (FIM): 4 Toileting (FIM): 5 Toilet/Commode Transfer (FIM): 5 Other Treatment Gait to therapy gym with FWW. Seated rest break upon reaching gym. Pt completed putty activity with bilateral hands to increase strength and coordination/manipulation skills needed for functional tasks. Pt able to remove small beads from moderate resistance putty with increased time. Pt returned room, transferred to chair with SBA. Pt sitting with needs met after session. OT Short Term Goals Short Term Goals Time Frame: Nov 30, 2018 Eating(FIM): 5 Grooming(FIM): 4 Bathing(FIM): 3 Upper Body Dressing(FIM): 3 Lower Body Dressing(FIM): 3 Toileting(FIM): 3 Transfers (B,C,W/C) (FIM): 4 Toilet/Commode Transfer(FIM): 4 Shower Transfer(FIM): 3 Additional Short Term Goals: 1-Demonstrate ADL Tasks, 2-Verbalize Understanding, 3-ImproveStrength/Cintia 1=Demonstrate adherence to instructed precautions during ADL tasks. 2=Patient will verbalize/demonstrate understanding of assistive devices/modifications for ADL. 3=Patient will improve strength/tolerance for activity to enable patient to perform ADL's. OT Shelter Goals Shelter Goals Time Frame: Dec 14, 2018 Eating (FIM): 7 Eating (QC): 6 Groomin Oral Hygiene (QC): 6 Bathing(FIM): 5 Shower/Bathe Self (QC): 4 Upper Body Dressing(FIM): 5 Upper Body Dressing (QC): 4 Lower Body Dressing(FIM): 5 Lower Body Dressing (QC): 4 On/Off Footwear (QC): 4 Toileting(FIM): 6 Toileting Hygiene (QC): 6 Transfers (B,C,W/C) (FIM): 6 Toilet/Commode Transfer(FIM): 6 Toilet/Commode Transfer (QC): 6 Shower Transfer(FIM): 5 Additional Goals: 1-Demonstrate ADL Tasks, 2-Verbalize Understanding, 3- ImproveStrength/Cintia 1=Demonstrate adherence to instructed precautions during ADL tasks. 2=Patient will verbalize/demonstrate understanding of assistive devices/modifications for ADL. 3=Patient will improve strength/tolerance for activity to enable patient to perform ADL's. OT Education/Plan Discharge Recommendations Plan/Recommendations: Continue POC Treatment Plan/Plan of Care Patient would benefit from OT for education, treatment and training to promote independence in ADL's, mobility, safety and/or upper extremity function for ADL's. Plan of Care: ADL Retraining, Functional Mobility, Group Exercise/Act as Ind, UE Funct Exercise/Act Treatment Duration: Dec 14, 2018 Frequency: At least 5 of 7 days/Wk (IRF) Estimated Hrs Per Day: 1.5 hours per day Agreement: Yes Rehab Potential: Fair Time/GCodes Start Time: 10:00 Stop Time: 11:00 Total Time Billed (hr/min): 60 Billed Treatment Time 1 visit, ADLx3(45minutes), EX(15minutes) VANNA BRAGG OT Nov 26, 2018 12:51
--- NOTE | 2018-11-26 14:15 | Progress Note ---
[facility] 11/26/18 1415: Subjective Date Seen by a Provider: Nov 26, 2018 Time Seen by a Provider: 06:50 Subjective/Events-last exam pt slept well last night Reports some L leg pain bilat LE look normal on inspection, no asymmetric swelling, no bruising had 5 BMs yesterday has been voiding well Review PT/OT notes, Meds, Labs Review of Systems General: No Chills, No Fatigue HEENT: No Head Aches Pulmonary: No Dyspnea, No Cough Cardiovascular: No: Chest Pain, Palpitations Gastrointestinal: No: Nausea, Vomiting, Diarrhea, Constipation Genitourinary: No Dysuria; Incontinence Objective Exam Last Set of Vital Signs Vital Signs Date Time Temp Pulse Resp B/P (MAP) Pulse Ox O2 Delivery O2 Flow Rate FiO2 11/26/18 09:00 Room Air 11/26/18 06:09 36.0 68 16 105/63 95 Capillary Refill : I&O Intake and Output 11/26/18 00:00 Intake Total 750 ml Balance 750 ml Intake Oral 750 ml # Voids 8 # Bowel Movements 3 General: Alert, Oriented X3, Cooperative, No Acute Distress HEENT: Other (head and neck hematomas have improved considerably ) Neck: Supple Lungs: Clear to Auscultation, Normal Air Movement Heart: Regular Rate, Normal S1, Normal S2, No Murmurs Extremities: No Clubbing, No Cyanosis Skin: No Rashes Assessment/Plan Assessment/Plan Assess & Plan/Chief Complaint IRF protocols Bilat LE DVT BM regimen to be maintained Pain control conservatives Continue to Use DENIS Wraps Eliquis 5mg BID Pt to be D/C to [facility] on Thursday Clinical Quality Measures DVT/VTE Risk/Contraindication: Risk Factor Score Per Nursin RFS Level Per Nursing on Admit: 4+=Very High RACHEAL MEJIA DO 11/26/18 1538: Supervisory-Addendum Brief Verification & Attestation Participated in pt care: history, MDM, physical Personally performed: exam, history, MDM, supervision of care Care discussed with: Medical Student Procedures: n/a Results interpretation: Verified all documentation Verification and Attestation of Medical Student E/M Service A medical student performed and documented this service in my presence. I reviewed and verified all information documented by the medical student and made modifications to such information, when appropriate. I personally performed the physical exam and medical decision making. Racheal Mejia, Nov 26, 2018,15:38 [facility] Nov 26, 2018 14:15 RACHEAL MEJIA DO Nov 26, 2018 15:38
--- NOTE | 2018-11-26 14:40 | Therapy Group Daily Note ---
Therapy Daily Group Note Patient Education Topic Other List Below (causes of balance issues and ways to manage) Exercises LE Seated Exercise, UE Exercise, Other (core) Session Ratio (pt:therapist): 4:1 Goal of Session: Other (list) (knowledge of causes of balance issues and strategies to manage) Goal Met for this Session: Yes Pt Benefit of Group: Increased Functional Safety, Increased Functional Strength Other/Notes Pt. participated in group PT OT session this date, Pt. ambulated to from with SBA. Pts introduced themselves and shared their names and some personal experiences with LOB. Education focused on causes of balance issues as well as strategies for improving balance and ways to be safer. Pts. all participated in U&L extremity seated ther ex as well as seated core exercises. Pt. to room after Rx with SBAclyde at hand Start Time: 13:00 Stop Time: 14:10 Total Billed Treatment Time: 70 Total Billed Treatment 1,GRP ZION COLEY MAIL DISTRIBUTION CLERK Nov 26, 2018 14:39
--- NOTE | 2018-11-26 15:32 | PM&R Progress Note ---
Subjective HPI/CC On Admission Date Seen by Provider: Nov 26, 2018 Time Seen by Provider: 15:00 CC: Debility following fall HPI: This is a 81yoWF clinic Pt of Dr. 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 Lower extremity edema was managed with low-dose Lasix and Potassium along with wide denis wraps. Bowels returned back to normal after multiple laxatives that resolved the issue. Her prior level of functioning was with the use of assistive devices at home but she has a history of multiple falls and will inquire if she is willing to go to assistive living which would serve her a lot better and provide her with a little bit more support but she likely will want to return home to live independently so will need to aggressively treat her in need to regain hr independence of ADLs and ambulation in order to return home. Subjective/Events-last exam Eliquis started at 5mg instead of the 10 twice a day for three weeks because of the low hgb and risk for bleeds and falls Evacuated her bowels Weight loss continues with water weight loss DENIS wraps will be maintained since they are loosely binding her, she has a filter anyway but there seems to be no concern about circulatory compromise at this time and it will lessen the edema she has acute on chronic She has agreed to go to [facility] on Thursday Fall risk continues Conferred with RN Reviewed therapy notes Checked meds and labs Review of Systems General: Fatigue Cardiovascular: Edema Objective Exam Vital Signs Vital Signs Date Time Temp Pulse Resp B/P (MAP) Pulse Ox O2 Delivery O2 Flow Rate FiO2 11/26/18 09:00 Room Air 11/26/18 06:09 36.0 68 16 105/63 95 Capillary Refill : General Appearance: No Apparent Distress, WD/WN, Chronically ill, Obese HEENT: PERRL/EOMI, Pharynx Normal, Moist Mucous Membranes, Other (ecchymosis right facial contusion improved) Neck: Full Range of Motion, Normal Inspection, Non Tender, Supple Respiratory: Chest Non Tender, Lungs Clear, Normal Breath Sounds, No Accessory Muscle Use, No Respiratory Distress Cardiovascular: Regular Rate, Rhythm, No Gallop, No JVD, No Murmur Gastrointestinal: Normal Bowel Sounds, No Organomegaly, No Pulsatile Mass, Non Tender, Soft Back: Normal Inspection, No CVA Tenderness, No Vertebral Tenderness Extremity: Normal Capillary Refill, Normal Inspection, Normal Range of Motion, Non Tender, No Calf Tenderness, Pedal Edema Neurologic/Psychiatric: Alert, Oriented x3, No Motor/Sensory Deficits, Normal Mood/Affect Skin: Normal Color, Warm/Dry Lymphatic: No Adenopathy Results/Procedures Lab Patient resulted labs reviewed. FIM Transfers Therapy Code Descriptions/Definitions Functional [place] Measure: 0=Not Assessed/NA 4=Minimal Assistance 1=Total Assistance 5=Supervision or Setup 2=Maximal Assistance 6=Modified [place] 3=Moderate Assistance 7=Complete [place] Therapy Quality Codes: 6 Independent with activity with or without an assistive device 5 Patient requires set up or clean up by helper. Patient completes activity by themselves 4 Supervision or touching assist (CGA). [place] provide cues , steadying assist 3 The helper provides less than half the effort to complete the activity 2 The helper provides more than half the effort to complete the activity 1 Dependent. The helper does all the effort to complete an activity 7 Patient refused to complete or attempt activity 9 The patient did not perform the activity before the current illness or injury 88 Not attempted due to Medical conditions or safety concerns Transfers (B, C, W/C) (FIM): 5 Scootin Rollin Roll Left to Right (QC): 3 Supine to/from Sit: 5 Sit to/from Stand: 5 Sit to Lying (QC): 3 Sit to Stand (QC): 5 Chair/Uys-ei-Bdvhp Xfer(QC): 4 Bed to/from Chair: 5 Car Transfer (QC): 3 Gait Training Does the Patient Walk?: Yes Gait (FIM): 3 Distance (FIM): 3=150 ft (125,160') Distance: 150' Walk 10 feet (QC): 5 Walk 50 ft with 2 Turns(QC): 5 Walk 150 ft (QC): 5 Walking 10ft/uneven surface-QC: 4 Gait Level of Assist: 5 Gait Persons Needed: 1 Gait Assistive Device: FWW Wheelchair Training Does the Pt Use a Wheelchair?: No Wheelchair (FIM): 1 Wheelchair Distance: 1=up to 49 ft (10ftx2) Wheelchair Level of Assist: 2 Type of Wheelchair: Manual Stair Training Stairs (FIM): 0 #of Steps: 1 1 Step (curb) (QC): 3 4 Steps (QC): 9 12 Steps (QC): 09 Level of Assist: 3 Balance Picking up an Object (QC): 9 Mental Status/Objective Comprehension: 7 Expression: 7 Social Interaction: 7 Problem Solvin Memory: 7 ADL-Treatment Feedin Eating (QC): 6 Groomin Oral Hygiene (QC): 5 (set up) Bathin Bathing Location: L Arm, R Arm, L Upper Leg, R Upper Leg, L Lower Leg (including foot), R Lower Leg (including foot), Chest, Abdomen, Perineal Area Shower/Bathe Self (QC): 3 Upper Extremity Dressin Upper Body Dressing (QC): 4 Lower Extremity Dressin Lower Body Dressing (QC): 2 On/Off Footwear (QC): 2 Toiletin Toileting Hygiene (QC): 4 Toilet/Commode Transfer: 5 Toilet Transfer (QC): 4 Shower: 4 Assessment/Plan Assessment and Plan Assess & Plan/Chief Complaint Plan: IRF protocol Pain control with APAP Fall risk prevention BM regimen to be maintained Voltaren gel for right shoulder pain [facility] Venous doppler USG 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 already has filter in place so maintain Eliquis fdc and close f/u PCP to monitor hgb (1) Debility Status: Acute (2) Acute renal failure Status: Acute Qualifiers: Acute renal failure type: unspecified Qualified Codes: N17.9 - Acute kidney failure, unspecified (3) Dehydration Status: Acute (4) Facial hematoma Status: Acute (5) Nausea Status: Acute (6) Fall Status: Acute Qualifiers: Encounter type: subsequent encounter Qualified Codes: W19.XXXD - Unspecified fall, subsequent encounter (7) Obesity Status: Chronic Qualifiers: Obesity type: due to excess calories Body mass index: BMI 40.0-44.9 (8) Traumatic hematoma of forehead Status: Acute Qualifiers: Encounter type: subsequent encounter Qualified Codes: S00.83XD - Contusion of other part of head, subsequent encounter (9) Edema Status: Acute Qualifiers: Edema type: localized Qualified Codes: R60.0 - Localized edema (10) Depression Status: Chronic Qualifiers: Depression Type: unspecified Qualified Codes: F32.9 - Major depressive disorder, single episode, unspecified (11) DVT (deep venous thrombosis) Status: Acute Qualifiers: DVT location: lower extremity Affected thrombotic vein of extremity: femoral Chronicity: acute Laterality: bilateral Qualified Codes: I82.413 - Acute embolism and thrombosis of femoral vein, bilateral (12) Moose filter in place Status: Chronic JOSEY MEJIA DO Nov 26, 2018 15:32
[2018-11-26 19:01] VITALS: BP 94/62
[2018-11-26] MEDS: POLYETHYLENE GLYCOL 17 GM (MIRALAX) PACK PO SCH (20:38)
[2018-11-27] MEDS: ACETAMINOPHEN 325 MG TABLET PO PRN ×3 (02:39→20:38)
[2018-11-27 06:25] VITALS: BP 115/71
[2018-11-27] MEDS: PANTOPRAZOLE 40 MG (PROTONIX) TAB PO SCH (06:52)
--- NOTE | 2018-11-27 10:13 | Physical Therapy Daily Note ---
PT Daily Note-Current Subjective Pt laying Supine in bed upon arrival. Pt agrees to PT. Pain Numeric Pain Scale: 3 Location: Right Location Body Site: Arm Pain Description: Ache Mental Status Patient Orientation: Person, Place, Time, Situation Transfers Therapy Code Descriptions/Definitions Functional [place] Measure: 0=Not Assessed/NA 4=Minimal Assistance 1=Total Assistance 5=Supervision or Setup 2=Maximal Assistance 6=Modified [place] 3=Moderate Assistance 7=Complete [place] Therapy Quality Codes: 6 Independent with activity with or without an assistive device 5 Patient requires set up or clean up by helper. Patient completes activity by themselves 4 Supervision or touching assist (CGA). [place] provide cues , steadying assist 3 The helper provides less than half the effort to complete the activity 2 The helper provides more than half the effort to complete the activity 1 Dependent. The helper does all the effort to complete an activity 7 Patient refused to complete or attempt activity 9 The patient did not perform the activity before the current illness or injury 88 Not attempted due to Medical conditions or safety concerns Scootin Supine to/from Sit: 5 Sit to/from Stand: 5 Sit to Stand (QC): 5 Weight Bearing Full Weight Bearing Full Weight Bearing Wheelchair Training Does the Pt Use a Wheelchair?: No Exercises Seated Therapy Exercises: Ankle pumps, Long arc quads, Hip flexion, Kicking activity, Glut set Seated Reps: 20 Treatments Pt transfers from Supine to EOB then to standing. Pt uses restroom, needing assistance with wiping posterior. Pt returns to recliner and completes Seated EX before resting. Pt has all needs met, call light in hand. Assessment Current Status: Good Progress Pt's ROM and mobility has improved as well as strength. PT Short Term Goals Short Term Goals Time Frame: Dec 01, 2018 Transfers (B,C,W/C) (FIM): 4 Gait (FIM): 4 Distance (FIM): 3=150 ft Gait Distance Comment: 150 Gait Level of Assist: 4 Gait Assistive Device: FWW PT Conveyor Line Battery Charger Goals [facility] Goals PT [facility] Goals Time Frame: Dec 01, 2018 Transfers (B,C,W/C) (FIM): 6 Sit to Lying (QC): 6 Lying-Sitting on Side/Bed(QC): 6 Sit to Stand (QC): 6 Rollin Roll Left to Right (QC): 6 Chair/Crf-gr-Phdgm Xfer(QC): 6 Car Transfer (QC): 5 Gait (FIM): 5 Gait distance (FIM): 3=150 ft Distance: 150 Walk 10 feet (QC): 6 Walk 10ft-Uneven Surface(QC): 6 Walk 50ft with 2 Turns (QC): 6 Walk 150 ft (QC): 6 Gait Assistive Device: FWW Wheel 50 feet with 2 turns (QC: 9 Stairs (FIM): 9 1 Step (curb) (QC): 5 4 Steps (QC): 9 12 Steps (QC): 9 Stairs Level Of Assist: 5 Picking up an Object (QC): 9 PT Plan Problem List Problem List: Activity Tolerance Treatment/Plan Treatment Plan: Continue Plan of Care Treatment Plan: Bed Mobility, Education, Functional Activity Cintia, Functional Strength, Gait, Safety, Therapeutic Exercise Treatment Duration: Dec 01, 2018 Frequency: At least 5 of 7 days/Wk (IRF) Estimated Hrs Per Day: 1.5 hours per day Patient and/or Family Agrees t: Yes Safety Risks/Education Patient Education: Transfer Techniques, Correct Positioning, Safety Issues Teaching Recipient: Patient Teaching Methods: Discussion Response to Teaching: Verbalize Understanding Time/GCodes Time In: 800 Time Out: 828 Total Billed Treatment Time: 28 Total Billed Treatment 1, FA (15m) & EX (13m) JORDEN ESPINOSA PTA Nov 27, 2018 10:13
[2018-11-27] MEDS: MICONAZOLE 2% POWDER (DESENEX AF) 90 GM TOP SCH ×2 (11:11→20:38)
[2018-11-27] MEDS: APIXABAN 5 MG (ELIQUIS) TABLET PO SCH ×2 (11:12→20:37)
--- NOTE | 2018-11-27 12:25 | PM&R Progress Note ---
Subjective HPI/CC On Admission Date Seen by Provider: Nov 27, 2018 Time Seen by Provider: 11:45 CC: Debility following fall HPI: This is a 81yoWF clinic Pt of Dr. 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 Lower extremity edema was managed with low-dose Lasix and Potassium along with wide susan wraps. Bowels returned back to normal after multiple laxatives that resolved the issue. Her prior level of functioning was with the use of assistive devices at home but she has a history of multiple falls and will inquire if she is willing to go to assistive living which would serve her a lot better and provide her with a little bit more support but she likely will want to return home to live independently so will need to aggressively treat her in need to regain hr independence of ADLs and ambulation in order to return home. Subjective/Events-last exam Discharge is planned for Thursday to assisted living. No major issues. Talked to her about her blood thinning Eliquis and her continued fall risk. Bowels are moving well. Fall risk continues Conferred with RN Reviewed therapy notes Checked meds and labs Review of Systems General: Fatigue Cardiovascular: Edema Objective Exam Vital Signs Vital Signs Date Time Temp Pulse Resp B/P (MAP) Pulse Ox O2 Delivery O2 Flow Rate FiO2 11/27/18 15:46 36.8 74 16 103/63 94 Room Air Capillary Refill : General Appearance: No Apparent Distress, WD/WN, Chronically ill, Obese HEENT: PERRL/EOMI, Pharynx Normal, Moist Mucous Membranes, Other (ecchymosis right facial contusion improved) Neck: Full Range of Motion, Normal Inspection, Non Tender, Supple Respiratory: Chest Non Tender, Lungs Clear, Normal Breath Sounds, No Accessory Muscle Use, No Respiratory Distress Cardiovascular: Regular Rate, Rhythm, No Gallop, No JVD, No Murmur Gastrointestinal: Normal Bowel Sounds, No Organomegaly, No Pulsatile Mass, Non Tender, Soft Back: Normal Inspection, No CVA Tenderness, No Vertebral Tenderness Extremity: Normal Capillary Refill, Normal Inspection, Normal Range of Motion, Non Tender, No Calf Tenderness, Pedal Edema Neurologic/Psychiatric: Alert, Oriented x3, No Motor/Sensory Deficits, Normal Mood/Affect Skin: Normal Color, Warm/Dry Lymphatic: No Adenopathy Results/Procedures Lab Patient resulted labs reviewed. FIM Transfers Therapy Code Descriptions/Definitions Functional [place] Measure: 0=Not Assessed/NA 4=Minimal Assistance 1=Total Assistance 5=Supervision or Setup 2=Maximal Assistance 6=Modified [place] 3=Moderate Assistance 7=Complete [place] Therapy Quality Codes: 6 Independent with activity with or without an assistive device 5 Patient requires set up or clean up by helper. Patient completes activity by themselves 4 Supervision or touching assist (CGA). [place] provide cues , steadying assist 3 The helper provides less than half the effort to complete the activity 2 The helper provides more than half the effort to complete the activity 1 Dependent. The helper does all the effort to complete an activity 7 Patient refused to complete or attempt activity 9 The patient did not perform the activity before the current illness or injury 88 Not attempted due to Medical conditions or safety concerns Transfers (B, C, W/C) (FIM): 5 Scootin Rollin Roll Left to Right (QC): 3 Supine to/from Sit: 5 Sit to/from Stand: 5 Sit to Lying (QC): 3 Sit to Stand (QC): 5 Chair/Lrr-zs-Jubwm Xfer(QC): 4 Bed to/from Chair: 5 Car Transfer (QC): 3 Gait Training Does the Patient Walk?: Yes Gait (FIM): 3 Distance (FIM): 3=150 ft (125,160') Distance: 150' Walk 10 feet (QC): 5 Walk 50 ft with 2 Turns(QC): 5 Walk 150 ft (QC): 5 Walking 10ft/uneven surface-QC: 4 Gait Level of Assist: 5 Gait Persons Needed: 1 Gait Assistive Device: FWW Wheelchair Training Does the Pt Use a Wheelchair?: No Wheelchair (FIM): 1 Wheelchair Distance: 1=up to 49 ft (10ftx2) Wheelchair Level of Assist: 2 Type of Wheelchair: Manual Stair Training Stairs (FIM): 0 #of Steps: 1 1 Step (curb) (QC): 3 4 Steps (QC): 9 12 Steps (QC): 09 Level of Assist: 3 Balance Picking up an Object (QC): 9 Mental Status/Objective Comprehension: 7 Expression: 7 Social Interaction: 7 Problem Solvin Memory: 7 ADL-Treatment Feedin Eating (QC): 6 Groomin Oral Hygiene (QC): 5 (set up) Bathin Bathing Location: L Arm, R Arm, L Upper Leg, R Upper Leg, L Lower Leg (including foot), R Lower Leg (including foot), Chest, Abdomen, Perineal Area Shower/Bathe Self (QC): 3 Upper Extremity Dressin Upper Body Dressing (QC): 4 Lower Extremity Dressin Lower Body Dressing (QC): 2 On/Off Footwear (QC): 2 Toiletin Toileting Hygiene (QC): 4 Toilet/Commode Transfer: 5 Toilet Transfer (QC): 4 Shower: 4 Assessment/Plan Assessment and Plan Assess & Plan/Chief Complaint Plan: IRF protocol Pain control with APAP Fall risk prevention BM regimen to be maintained Voltaren gel for right shoulder pain [facility] Thursday Venous doppler USG 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 already has filter in place so maintain Eliquis usp and close f/u PCP to monitor hgb (1) Debility Status: Acute (2) Acute renal failure Status: Acute Qualifiers: Acute renal failure type: unspecified Qualified Codes: N17.9 - Acute kidney failure, unspecified (3) Dehydration Status: Acute (4) Facial hematoma Status: Acute (5) Nausea Status: Acute (6) Fall Status: Acute Qualifiers: Encounter type: subsequent encounter Qualified Codes: W19.XXXD - Unspecified fall, subsequent encounter (7) Obesity Status: Chronic Qualifiers: Obesity type: due to excess calories Body mass index: BMI 40.0-44.9 (8) Traumatic hematoma of forehead Status: Acute Qualifiers: Encounter type: subsequent encounter Qualified Codes: S00.83XD - Contusion of other part of head, subsequent encounter (9) Edema Status: Acute Qualifiers: Edema type: localized Qualified Codes: R60.0 - Localized edema (10) Depression Status: Chronic Qualifiers: Depression Type: unspecified Qualified Codes: F32.9 - Major depressive disorder, single episode, unspecified (11) DVT (deep venous thrombosis) Status: Acute Qualifiers: DVT location: lower extremity Affected thrombotic vein of extremity: femoral Chronicity: acute Laterality: bilateral Qualified Codes: I82.413 - Acute embolism and thrombosis of femoral vein, bilateral (12) [place] filter in place Status: Chronic JOSEY MEJIA DO Nov 27, 2018 12:25
[2018-11-27 15:46] VITALS: BP 103/63
[2018-11-27] MEDS: POLYETHYLENE GLYCOL 17 GM (MIRALAX) PACK PO SCH (19:37)
[2018-11-28 05:45] VITALS: BP 131/72
[2018-11-28] MEDS: KCL 10 MEQ TAB (MICRO K) PO SCH (06:21)
[2018-11-28] MEDS: PANTOPRAZOLE 40 MG (PROTONIX) TAB PO SCH (06:21)
[2018-11-28] MEDS: FUROSEMIDE 20 MG (LASIX) TAB PO SCH (09:20)
[2018-11-28] MEDS: APIXABAN 5 MG (ELIQUIS) TABLET PO SCH ×2 (09:20→20:14)
[2018-11-28] MEDS: MICONAZOLE 2% POWDER (DESENEX AF) 90 GM TOP SCH ×2 (09:20→20:14)
--- NOTE | 2018-11-28 13:58 | PM&R Progress Note ---
Subjective HPI/CC On Admission Date Seen by Provider: Nov 28, 2018 Time Seen by Provider: 13:00 CC: Debility following fall HPI: This is a 81yoWF clinic Pt of Dr. 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 [place] [facility] [address] was on diversion, did well with IV fluids, creatinine returned back to 1.0 and Pt was monitored closely, PT and OT consulted and she was found to be in need for intensive therapy in order to return home. Lower extremity edema was managed with low-dose Lasix and Potassium along with wide susan wraps. Bowels returned back to normal after multiple laxatives that resolved the issue. Her prior level of functioning was with the use of assistive devices at home but she has a history of multiple falls and will inquire if she is willing to go to assistive living which would serve her a lot better and provide her with a little bit more support but she likely will want to return home to live independently so will need to aggressively treat her in need to regain hr independence of ADLs and ambulation in order to return home. Subjective/Events-last exam Discharge is planned for Thursday to assisted living. No major issues. Talked to her about her blood thinning Eliquis and her continued fall risk. Bowels are moving well. Fall risk continues Did not sleep well last night Conferred with RN Reviewed therapy notes Checked meds and labs Review of Systems Cardiovascular: Edema Objective Exam Vital Signs Vital Signs Date Time Temp Pulse Resp B/P (MAP) Pulse Ox O2 Delivery O2 Flow Rate FiO2 11/28/18 15:57 36.6 92 16 126/60 98 Room Air Capillary Refill : General Appearance: No Apparent Distress, WD/WN, Chronically ill, Obese HEENT: PERRL/EOMI, Pharynx Normal, Moist Mucous Membranes, Other (ecchymosis right facial contusion improved) Neck: Full Range of Motion, Normal Inspection, Non Tender, Supple Respiratory: Chest Non Tender, Lungs Clear, Normal Breath Sounds, No Accessory Muscle Use, No Respiratory Distress Cardiovascular: Regular Rate, Rhythm, No Gallop, No JVD, No Murmur Gastrointestinal: Normal Bowel Sounds, No Organomegaly, No Pulsatile Mass, Non Tender, Soft Back: Normal Inspection, No CVA Tenderness, No Vertebral Tenderness Extremity: Normal Capillary Refill, Normal Inspection, Normal Range of Motion, Non Tender, No Calf Tenderness, Pedal Edema Neurologic/Psychiatric: Alert, Oriented x3, No Motor/Sensory Deficits, Normal Mood/Affect Skin: Normal Color, Warm/Dry Lymphatic: No Adenopathy Results/Procedures Lab Patient resulted labs reviewed. FIM Transfers Therapy Code Descriptions/Definitions Functional [place] Measure: 0=Not Assessed/NA 4=Minimal Assistance 1=Total Assistance 5=Supervision or Setup 2=Maximal Assistance 6=Modified [place] 3=Moderate Assistance 7=Complete [place] Therapy Quality Codes: 6 Independent with activity with or without an assistive device 5 Patient requires set up or clean up by helper. Patient completes activity by themselves 4 Supervision or touching assist (CGA). [place] provide cues , steadying assist 3 The helper provides less than half the effort to complete the activity 2 The helper provides more than half the effort to complete the activity 1 Dependent. The helper does all the effort to complete an activity 7 Patient refused to complete or attempt activity 9 The patient did not perform the activity before the current illness or injury 88 Not attempted due to Medical conditions or safety concerns Transfers (B, C, W/C) (FIM): 5 Scootin Rollin Roll Left to Right (QC): 3 Supine to/from Sit: 5 Sit to/from Stand: 5 Sit to Lying (QC): 3 Sit to Stand (QC): 5 Chair/Yoe-ow-Pzxvl Xfer(QC): 4 Bed to/from Chair: 5 Car Transfer (QC): 3 Gait Training Does the Patient Walk?: Yes Gait (FIM): 3 Distance (FIM): 3=150 ft (125,160') Distance: 150' Walk 10 feet (QC): 5 Walk 50 ft with 2 Turns(QC): 5 Walk 150 ft (QC): 5 Walking 10ft/uneven surface-QC: 4 Gait Level of Assist: 5 Gait Persons Needed: 1 Gait Assistive Device: FWW Wheelchair Training Does the Pt Use a Wheelchair?: No Wheelchair (FIM): 1 Wheelchair Distance: 1=up to 49 ft (10ftx2) Wheelchair Level of Assist: 2 Type of Wheelchair: Manual Stair Training Stairs (FIM): 0 #of Steps: 1 1 Step (curb) (QC): 3 4 Steps (QC): 9 12 Steps (QC): 09 Level of Assist: 3 Balance Picking up an Object (QC): 9 Mental Status/Objective Comprehension: 7 Expression: 7 Social Interaction: 7 Problem Solvin Memory: 7 ADL-Treatment Feedin Eating (QC): 6 Groomin Oral Hygiene (QC): 5 (set up) Bathin Bathing Location: L Arm, R Arm, L Upper Leg, R Upper Leg, L Lower Leg (including foot), R Lower Leg (including foot), Chest, Abdomen, Perineal Area Shower/Bathe Self (QC): 3 Upper Extremity Dressin Upper Body Dressing (QC): 4 Lower Extremity Dressin Lower Body Dressing (QC): 2 On/Off Footwear (QC): 2 Toiletin Toileting Hygiene (QC): 4 Toilet/Commode Transfer: 5 Toilet Transfer (QC): 4 Shower: 4 Assessment/Plan Assessment and Plan Assess & Plan/Chief Complaint Plan: IRF protocol Pain control with APAP Fall risk prevention BM regimen to be maintained Voltaren gel for right shoulder pain [facility] Thursday Venous doppler USG 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 already has filter in place so maintain Eliquis fdc and close f/u PCP to monitor hgb (1) Debility Status: Acute (2) Acute renal failure Status: Acute Qualifiers: Acute renal failure type: unspecified Qualified Codes: N17.9 - Acute kidney failure, unspecified (3) Dehydration Status: Acute (4) Facial hematoma Status: Acute (5) Nausea Status: Acute (6) Fall Status: Acute Qualifiers: Encounter type: subsequent encounter Qualified Codes: W19.XXXD - Unspecified fall, subsequent encounter (7) Obesity Status: Chronic Qualifiers: Obesity type: due to excess calories Body mass index: BMI 40.0-44.9 (8) Traumatic hematoma of forehead Status: Acute Qualifiers: Encounter type: subsequent encounter Qualified Codes: S00.83XD - Contusion of other part of head, subsequent encounter (9) Edema Status: Acute Qualifiers: Edema type: localized Qualified Codes: R60.0 - Localized edema (10) Depression Status: Chronic Qualifiers: Depression Type: unspecified Qualified Codes: F32.9 - Major depressive disorder, single episode, unspecified (11) DVT (deep venous thrombosis) Status: Acute Qualifiers: DVT location: lower extremity Affected thrombotic vein of extremity: femoral Chronicity: acute Laterality: bilateral Qualified Codes: I82.413 - Acute embolism and thrombosis of femoral vein, bilateral (12) [place] filter in place Status: Chronic JOSEY MEJIA DO Nov 28, 2018 13:57
[2018-11-28] MEDS ORDERED: DICL100G18 TOP (14:04)
[2018-11-28] MEDS ORDERED: MICO90PO TOP (14:04)
[2018-11-28] MEDS ORDERED: FURO20TA4 PO (14:04)
[2018-11-28] MEDS ORDERED: PANT40TA3 PO (14:04)
[2018-11-28] MEDS ORDERED: POLY17PO31 PO (14:04)
[2018-11-28] MEDS ORDERED: ACET325T49 PO (14:04)
[2018-11-28] MEDS ORDERED: POTA10TA6 PO (14:04)
[2018-11-28] MEDS ORDERED: APIX5TAB PO (14:04)
[2018-11-28] MEDS ORDERED: MENT71OI TP (14:04)
--- NOTE | 2018-11-28 14:05 | Discharge Summary ---
Discharge Summary Reconcile Patient Problems Problems Reviewed?: Yes Instructions for Patient [facility], Assessment/Instructions Dr Acharya in 1 week Physician to follow Patient: Dr Garrett Acharya Discharge Diet for Home: No Restrictions Hospital Course Date of Admission: Nov 16, 2018 at 12:34 Admission Diagnosis : Family Physician/Provider: Garrett Acharya MD Date of Discharge: 11/28/18 Discharge Diagnosis: [ ] Hospital Course: [ ] Labs and Pending Lab Test: Home Meds Active Reported Citalopram HBr (Citalopram Hydrobromide) 20 Mg Tablet 20 Mg PO DAILY Patient Allergies: Coded Allergies: Penicillins (Verified Allergy, Mild, Pt has received Ceftriaxone in the past w/o issue, 05/28/18) Height (Feet): 5 Height (Inches): 2.00 Weight (Pounds): 245 Weight (Ounces): 4.8 Home Health Need/Face to Face Date of Face to Face: Nov 28, 2018 Clinical Findings: Generalized weakness and fatigue, Instability, Muscle weakness, Shortness of breath, Unsteady gait I have seen Pt [id number]: Yes Discharged To: Home Diagnosis/Conditions: Debility Bilateral DVT's Edema lower legs Patient is Homebound due to: Laura fall risk due to instabilty, Muscle weakness, Pain w/ambulation Homebound Status Due to the above stated illness, injury or surgical procedure (medical condition or diagnosis) and associated clinical findings, the patient is homebound because of his/her inability to leave home except with aid of a supportive device and/or person AND leaving the home requires a considerable and taxing effort or is medically contraindicated. Pt req the following assistanc: Walker Home Health Nursing Orders Home Health Services Order: Research Attorney-Evaluate & Treat, Physical Therapy-Evaluate & Treat Certify Stmt I certify that this patient is under my care and that I, a nurse practitioner or a physician; a bilingual legal assistant working with me, had a face to face encounter that - meets the physician face to face encounter requirements with this patient as dated. JOSEY MEJIA DO Nov 28, 2018 14:05
[2018-11-28 15:57] VITALS: BP 126/60
[2018-11-28] MEDS: ACETAMINOPHEN 325 MG TABLET PO PRN (18:34)
[2018-11-28] MEDS ORDERED: MELATONIN 3 MG TABLET PO PRN (19:15)
[2018-11-28] MEDS: POLYETHYLENE GLYCOL 17 GM (MIRALAX) PACK PO SCH (19:16)
[2018-11-29] MEDS: PANTOPRAZOLE 40 MG (PROTONIX) TAB PO SCH (05:19)
[2018-11-29 05:33] LABS: BASOPHILS % (AUTO) 0 % (0-10); EOSINOPHILS # (AUTO) 0.2 10^3/uL (0.0-0.3); EOSINOPHILS % (AUTO) 6 % (0-10); HEMATOCRIT 28 % (35-52); HEMOGLOBIN 8.4 G/DL (11.5-16.0); LYMPHOCYTES # (AUTO) 1.1 X 10^3 (1.0-4.0); LYMPHOCYTES % (AUTO) 31 % (12-44); MEAN CORPUSCULAR HEMOGLOBIN 31 PG (25-34); MEAN CORPUSCULAR HGB CONC 30 G/DL (32-36); MEAN CORPUSCULAR VOLUME 103 FL (80-99); MEAN PLATELET VOLUME 8.7 FL (7.4-10.4); MONOCYTES # (AUTO) 0.4 X 10^3 (0.0-1.0); MONOCYTES % (AUTO) 11 % (0-12); NEUTROPHILS # (AUTO) 1.9 X 10^3 (1.8-7.8); NEUTROPHILS % (AUTO) 52 % (42-75); PLATELET COUNT 275 10^3/uL (130-400); RED CELL DISTRIBUTION WIDTH 15.8 % (10.0-14.5); WHITE BLOOD COUNT 3.6 10^3/uL (4.3-11.0)
[2018-11-29 05:48] VITALS: BP 111/69
[2018-11-29 06:00] LABS: ALBUMIN 3.2 GM/DL (3.2-4.5); BILIRUBIN,TOTAL 0.7 MG/DL (0.1-1.0); CALCIUM 8.6 MG/DL (8.5-10.1); CREATININE SERUM 1.09 MG/DL (0.60-1.30); POTASSIUM 3.9 MMOL/L (3.6-5.0); TOTAL PROTEIN 6.2 GM/DL (6.4-8.2)
--- NOTE | 2018-11-29 08:23 | Discharge Summary ---
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 already has filter in place so maintain Eliquis intermediate teacher and close f/u PCP to monitor hgb (1) Debility Status: Acute (2) Acute renal failure Status: Acute Qualifiers: Acute renal failure type: unspecified Qualified Codes: N17.9 - Acute kidney failure, unspecified (3) Dehydration Status: Acute (4) Facial hematoma Status: Acute (5) Nausea Status: Acute (6) Fall Status: Acute Qualifiers: Encounter type: subsequent encounter Qualified Codes: W19.XXXD - Unspecified fall, subsequent encounter (7) Obesity Status: Chronic Qualifiers: Obesity type: due to excess calories Body mass index: BMI 40.0-44.9 (8) Traumatic hematoma of forehead Status: Acute Qualifiers: Encounter type: subsequent encounter Qualified Codes: S00.83XD - Contusion of other part of head, subsequent encounter (9) Edema Status: Acute Qualifiers: Edema type: localized Qualified Codes: R60.0 - Localized edema (10) Depression Status: Chronic Qualifiers: Depression Type: unspecified Qualified Codes: F32.9 - Major depressive disorder, single episode, unspecified (11) DVT (deep venous thrombosis) Status: Acute Qualifiers: DVT location: lower extremity Affected thrombotic vein of extremity: femoral Chronicity: acute Laterality: bilateral Qualified Codes: I82.413 - Acute embolism and thrombosis of femoral vein, bilateral (12) [place] filter in place Status: Chronic Discharge Summary Discharge Physical Examination Allergies: Coded Allergies: Penicillins (Verified Allergy, Mild, Pt has received Ceftriaxone in the past w/o issue, 05/28/18) Vitals & I&Os Vital Signs Date Time Temp Pulse Resp B/P (MAP) Pulse Ox O2 Delivery O2 Flow Rate FiO2 11/29/18 13:15 11/29/18 08:35 Room Air 11/29/18 05:48 36.6 71 18 93 General Appearance: Alert, Oriented X3, Cooperative Respiratory: Clear to Auscultation Cardiovascular: Regular Rate Neuro: Normal Speech, Strength at 5/5 X4 Ext Psych/Mental Status: Mental Status NL, Mood NL Hospital Course Was the Problem List Reviewed?: Yes Hospital Course: Pt had a two week hospital course after she was transferred from [facility] when she was strong enough to be able to participated in the required therapy hours in inpatient rehab. Lower extremity edema continued to be a problem. B/L lower extremity ultrasound confirmed B/L DVTs. She had had DVTs in the past and was placed on Coumadin and just recently discontinued due to the fall risk and multiple frequent falls risk for bleeding stroke outweighed the benefits and she already had a filter in place so she was monitored closely, given meds for bowel regimen and she reluctantly agreed to assisted living for continued close monitoring for fall risk and Dr. Acharya saw pt in order to obtain close follow up an she was able to be maintained on Elequis oral anticoagulation. Hgb remained stable at 8.4 and was able to be discharged in improved condition with use of walker to assisted living with home health, PT and OT. Labs (last 24 hrs) Laboratory Tests 11/17/18 06:30: White Blood Count 8.2, Red Blood Count 2.76L, Hemoglobin 8.8L, Hematocrit 28L, Mean Corpuscular Volume 100H, Mean Corpuscular Hemoglobin 32, Mean Corpuscular Hemoglobin Concent 32, Red Cell Distribution Width 15.3H, Platelet Count 214, Mean Platelet Volume 8.9, Neutrophils (%) (Auto) 75, Lymphocytes (%) (Auto) 16, Monocytes (%) (Auto) 6, Eosinophils (%) (Auto) 3, Basophils (%) (Auto) 0, Neutrophils # (Auto) 6.1, Lymphocytes # (Auto) 1.3, Monocytes # (Auto) 0.5, Eosinophils # (Auto) 0.2, Basophils # (Auto) 0.0, Sodium Level 139, Potassium Level 4.1, Chloride Level 108H, Carbon Dioxide Level 22, Anion Gap 9, Blood Urea Nitrogen 28H, Creatinine 1.15, Estimat Glomerular Filtration Rate 45, BUN/Creatinine Ratio 24, Glucose Level 97, Calcium Level 8.5, Corrected Calcium 9.1, Total Bilirubin 1.2H, Aspartate Amino Transf (AST/SGOT) 27, Alanine Aminotransferase (ALT/SGPT) 16, Alkaline Phosphatase 89, Total Protein 6.7, Albumin 3.2 11/22/18 05:55: White Blood Count 5.4, Red Blood Count 2.54L, Hemoglobin 8.1L, Hematocrit 26L, Mean Corpuscular Volume 102H, Mean Corpuscular Hemoglobin 32, Mean Corpuscular Hemoglobin Concent 31L, Red Cell Distribution Width 15.4H, Platelet Count 176, Mean Platelet Volume 9.1, Neutrophils (%) (Auto) 67, Lymphocytes (%) (Auto) 21, Monocytes (%) (Auto) 8, Eosinophils (%) (Auto) 4, Basophils (%) (Auto) 0, Neutrophils # (Auto) 3.6, Lymphocytes # (Auto) 1.1, Monocytes # (Auto) 0.5, Eosinophils # (Auto) 0.2, Basophils # (Auto) 0.0, Sodium Level 142, Potassium Level 4.5, Chloride Level 110H, Carbon Dioxide Level 24, Anion Gap 8, Blood Urea Nitrogen 25H, Creatinine 1.09, Estimat Glomerular Filtration Rate 48, BUN/Creatinine Ratio 23, Glucose Level 94, Calcium Level 8.7, Corrected Calcium 9.5, Total Bilirubin 1.0, Aspartate Amino Transf (AST/SGOT) 21, Alanine Aminotransferase (ALT/SGPT) 9, Alkaline Phosphatase 84, Total Protein 6.1L, Albumin 3.0L 11/24/18 05:30: White Blood Count 5.0, Red Blood Count 2.67L, Hemoglobin 8.5L, Hematocrit 27L, Mean Corpuscular Volume 102H, Mean Corpuscular Hemoglobin 32, Mean Corpuscular Hemoglobin Concent 31L, Red Cell Distribution Width 15.6H, Platelet Count 184, Mean Platelet Volume 9.1, Sodium Level 141, Potassium Level 4.3, Chloride Level 109H, Carbon Dioxide Level 23, Anion Gap 9, Blood Urea Nitrogen 23H, Creatinine 1.07, Estimat Glomerular Filtration Rate 49, BUN/Creatinine Ratio 21, Glucose Level 91, Calcium Level 8.6, Corrected Calcium 9.4, Total Bilirubin 1.0, Aspartate Amino Transf (AST/SGOT) 22, Alanine Aminotransferase (ALT/SGPT) 9, Alkaline Phosphatase 77, Total Protein 6.1L, Albumin 3.0L, Iron Level 58 11/29/18 05:11: White Blood Count 3.6L, Red Blood Count 2.68L, Hemoglobin 8.4L, Hematocrit 28L, Mean Corpuscular Volume 103H, Mean Corpuscular Hemoglobin 31, Mean Corpuscular Hemoglobin Concent 30L, Red Cell Distribution Width 15.8H, Platelet Count 275, Mean Platelet Volume 8.7, Neutrophils (%) (Auto) 52, Lymphocytes (%) (Auto) 31, Monocytes (%) (Auto) 11, Eosinophils (%) (Auto) 6, Basophils (%) (Auto) 0, Neutrophils # (Auto) 1.9, Lymphocytes # (Auto) 1.1, Monocytes # (Auto) 0.4, Eosinophils # (Auto) 0.2, Basophils # (Auto) 0.0, Sodium Level 143, Potassium Level 3.9, Chloride Level 109H, Carbon Dioxide Level 23, Anion Gap 11, Blood Urea Nitrogen 17, Creatinine 1.09, Estimat Glomerular Filtration Rate 48, BUN/Creatinine Ratio 16, Glucose Level 99, Calcium Level 8.6, Corrected Calcium 9.2, Total Bilirubin 0.7, Aspartate Amino Transf (AST/SGOT) 19, Alanine Aminotransferase (ALT/SGPT) 9, Alkaline Phosphatase 88, Total Protein 6.2L, Albumin 3.2 Pending Labs Laboratory Tests 11/17/18 06:30: White Blood Count 8.2, Red Blood Count 2.76, Hemoglobin 8.8, Hematocrit 28, Mean Corpuscular Volume 100, Mean Corpuscular Hemoglobin 32, Mean Corpuscular Hemoglobin Concent 32, Red Cell Distribution Width 15.3, Platelet Count 214, Mean Platelet Volume 8.9, Neutrophils (%) (Auto) 75, Lymphocytes (%) (Auto) 16, Monocytes (%) (Auto) 6, Eosinophils (%) (Auto) 3, Basophils (%) (Auto) 0, Neutrophils # (Auto) 6.1, Lymphocytes # (Auto) 1.3, Monocytes # (Auto) 0.5, Eosinophils # (Auto) 0.2, Basophils # (Auto) 0.0, Sodium Level 139, Potassium Level 4.1, Chloride Level 108, Carbon Dioxide Level 22, Anion Gap 9, Blood Urea Nitrogen 28, Creatinine 1.15, Estimat Glomerular Filtration Rate 45, BUN /Creatinine Ratio 24, Glucose Level 97, Calcium Level 8.5, Corrected Calcium 9.1, Total Bilirubin 1.2, Aspartate Amino Transf (AST/SGOT) 27, Alanine Aminotransferase (ALT/SGPT) 16, Alkaline Phosphatase 89, Total Protein 6.7, Albumin 3.2 11/22/18 05:55: White Blood Count 5.4, Red Blood Count 2.54, Hemoglobin 8.1, Hematocrit 26, Mean Corpuscular Volume 102, Mean Corpuscular Hemoglobin 32, Mean Corpuscular Hemoglobin Concent 31, Red Cell Distribution Width 15.4, Platelet Count 176, Mean Platelet Volume 9.1, Neutrophils (%) (Auto) 67, Lymphocytes (%) (Auto) 21, Monocytes (%) (Auto) 8, Eosinophils (%) (Auto) 4, Basophils (%) (Auto) 0, Neutrophils # (Auto) 3.6, Lymphocytes # (Auto) 1.1, Monocytes # (Auto) 0.5, Eosinophils # (Auto) 0.2, Basophils # (Auto) 0.0, Sodium Level 142, Potassium Level 4.5, Chloride Level 110, Carbon Dioxide Level 24, Anion Gap 8, Blood Urea Nitrogen 25, Creatinine 1.09, Estimat Glomerular Filtration Rate 48, BUN/Creatinine Ratio 23, Glucose Level 94, Calcium Level 8.7, Corrected Calcium 9.5, Total Bilirubin 1.0, Aspartate Amino Transf (AST/SGOT) 21, Alanine Aminotransferase (ALT/SGPT) 9, Alkaline Phosphatase 84, Total Protein 6.1, Albumin 3.0 11/24/18 05:30: White Blood Count 5.0, Red Blood Count 2.67, Hemoglobin 8.5, Hematocrit 27, Mean Corpuscular Volume 102, Mean Corpuscular Hemoglobin 32, Mean Corpuscular Hemoglobin Concent 31, Red Cell Distribution Width 15.6, Platelet Count 184, Mean Platelet Volume 9.1, Sodium Level 141, Potassium Level 4.3, Chloride Level 109, Carbon Dioxide Level 23, Anion Gap 9, Blood Urea Nitrogen 23, Creatinine 1.07, Estimat Glomerular Filtration Rate 49, BUN/Creatinine Ratio 21, Glucose Level 91, Calcium Level 8.6, Corrected Calcium 9.4, Total Bilirubin 1.0, Aspartate Amino Transf (AST/SGOT) 22, Alanine Aminotransferase (ALT/SGPT) 9, Alkaline Phosphatase 77, Total Protein 6.1, Albumin 3.0, Iron Level 58 11/29/18 05:11: White Blood Count 3.6, Red Blood Count 2.68, Hemoglobin 8.4, Hematocrit 28, Mean Corpuscular Volume 103, Mean Corpuscular Hemoglobin 31, Mean Corpuscular Hemoglobin Concent 30, Red Cell Distribution Width 15.8, Platelet Count 275, Mean Platelet Volume 8.7, Neutrophils (%) (Auto) 52, Lymphocytes (%) (Auto) 31, Monocytes (%) (Auto) 11, Eosinophils (%) (Auto) 6, Basophils (%) (Auto) 0, Neutrophils # (Auto) 1.9, Lymphocytes # (Auto) 1.1, Monocytes # (Auto) 0.4, Eosinophils # (Auto) 0.2, Basophils # (Auto) 0.0, Sodium Level 143, Potassium Level 3.9, Chloride Level 109, Carbon Dioxide Level 23, Anion Gap 11, Blood Urea Nitrogen 17, Creatinine 1.09, Estimat Glomerular Filtration Rate 48, BUN/Creatinine Ratio 16, Glucose Level 99, Calcium Level 8.6, Corrected Calcium 9.2, Total Bilirubin 0.7, Aspartate Amino Transf (AST/SGOT) 19, Alanine Aminotransferase (ALT/SGPT) 9, Alkaline Phosphatase 88, Total Protein 6.2, Albumin 3.2 Discharge Home Medications: Active Scripts Active Calmoseptine Ointment (Menthol/Lanolin/Calamine/Znox) 71 Gm Oint 0 Gm TP QID PRN Lotrimin AF (Miconazole Nitrate) 90 Gm Powder 0 Gm TOP BID Pantoprazole Sodium 40 Mg Tablet.dr 40 Mg PO DAILY@0700 30 Days Polyethylene Glycol 3350 17 Gm Powd.pack 17 Gm PO Q48H 30 Days Furosemide 20 Mg Tablet 20 Mg PO Q48H 30 Days Klor-Con 10 (Potassium Chloride) 10 Meq Tablet.er 10 Meq PO Q48H 30 Days Acetaminophen 325 Mg Tablet 650 Mg PO Q6H PRN 30 Days Voltaren (Diclofenac Sodium) 100 Gm Gel..gram. 0 Gm TOP TID PRN Eliquis (Apixaban) 5 Mg Tablet 5 Mg PO BID Reported Citalopram HBr (Citalopram Hydrobromide) 20 Mg Tablet 20 Mg PO DAILY Instructions to patient/family Please see electronic discharge instructions given to patient. Diagnosis/Problems Diagnosis/Problems (1) Debility Status: Acute (2) Acute renal failure Status: Acute Qualifiers: Qualified Codes: N17.9 - Acute kidney failure, unspecified (3) Dehydration Status: Acute (4) Facial hematoma Status: Acute (5) Nausea Status: Acute (6) Fall Status: Acute Qualifiers: Qualified Codes: W19.XXXD - Unspecified fall, subsequent encounter (7) Obesity Status: Chronic Qualifiers: (8) Traumatic hematoma of forehead Status: Acute Qualifiers: Qualified Codes: S00.83XD - Contusion of other part of head, subsequent encounter (9) Edema Status: Acute Qualifiers: Qualified Codes: R60.0 - Localized edema (10) Depression Status: Chronic Qualifiers: Qualified Codes: F32.9 - Major depressive disorder, single episode, unspecified (11) DVT (deep venous thrombosis) Status: Acute Qualifiers: Qualified Codes: I82.413 - Acute embolism and thrombosis of femoral vein, bilateral (12) [place] filter in place Status: Chronic Clinical Quality Measures DVT/VTE Risk/Contraindication: Risk Factor Score Per Nursin RFS Level Per Nursing on Admit: 4+=Very High JOSEY MEJIA DO Nov 29, 2018 08:23
[2018-11-29] MEDS: MICONAZOLE 2% POWDER (DESENEX AF) 90 GM TOP SCH (09:45)
[2018-11-29] MEDS: APIXABAN 5 MG (ELIQUIS) TABLET PO SCH (09:46)
[2018-11-29] MEDS: ACETAMINOPHEN 325 MG TABLET PO PRN (09:46)
[2018-11-29] MEDS: POLYETHYLENE GLYCOL 17 GM (MIRALAX) PACK PO SCH (09:46)
--- NOTE | 2018-11-29 11:38 | Physical Therapy Daily Note ---
PT Daily Note-Current Subjective Patient in recliner pre tx, agrees to PT, has 3/10 pain in head. Patient is discharging today and needs FIM'ed Appearance Patient in recliner post tx with nurse call, phone, tray, all needs met. Mental Status Patient Orientation: Person, Place, Situation Transfers Therapy Code Descriptions/Definitions Functional [place] Measure: 0=Not Assessed/NA 4=Minimal Assistance 1=Total Assistance 5=Supervision or Setup 2=Maximal Assistance 6=Modified [place] 3=Moderate Assistance 7=Complete [place] Therapy Quality Codes: 6 Independent with activity with or without an assistive device 5 Patient requires set up or clean up by helper. Patient completes activity by themselves 4 Supervision or touching assist (CGA). [place] provide cues , steadying assist 3 The helper provides less than half the effort to complete the activity 2 The helper provides more than half the effort to complete the activity 1 Dependent. The helper does all the effort to complete an activity 7 Patient refused to complete or attempt activity 9 The patient did not perform the activity before the current illness or injury 88 Not attempted due to Medical conditions or safety concerns Transfers (B, C, W/C) (FIM): 5 Scootin Rollin Roll Left to Right (QC): 6 Supine to/from Sit: 6 Sit to/from Stand: 5 Sit to Lying (QC): 6 Sit to Stand (QC): 4 Chair/Mjx-ds-Slqcg Xfer(QC): 4 Bed to/from Chair: 5 Car Transfer (QC): 4 Patient performs bed mobility with mod I, supine <-> sit with mod I, sit <-> stand with SBA, transfers with SBA, car transfer SBA. Patient needs occasional cues for safety during transfers. Weight Bearing Full Weight Bearing Full Weight Bearing Gait Training Gait (FIM): 5 Distance: 150'x2 Walk 10 feet (QC): 4 Walk 50 ft with 2 Turns(QC): 4 Walk 150 ft (QC): 4 Walking 10ft/uneven surface-QC: 4 Gait Level of Assist: 5 Gait Persons Needed: 1 Gait Assistive Device: FWW Patient can ambulate 150' with a rolling walker with SBA (including 50' with at least 2 turns of 90 degrees and 10' over an uneven surface). Patient ambulates slowly but steady, fatigues easily. Wheelchair Training Does the Pt Use a Wheelchair?: No Stair Training Stair Training: Handrails/: uses walker Stairs (FIM): 1 #of Steps: 1 1 Step (curb) (QC): 3 Stairs: Pattern: Step to Level of Assist: 4 Patient can go up and down 1 step using a rolling walker with min assist. Patient has trouble doing steps due to weakness and poor knee ROM. Her knee almost buckled going up 1 step. Patient states she does not need to go up or down any steps at home. Treatments bed mobility and transfers, ambulation, steps Assessment Current Status: Fair Progress Patient fatigues quickly, needs rest breaks. Has difficulty with steps and is not safe to do them by herself. PT Short Term Goals Short Term Goals Time Frame: Dec 01, 2018 Transfers (B,C,W/C) (FIM): 4 Gait (FIM): 4 Distance (FIM): 3=150 ft Gait Distance Comment: 150 Gait Level of Assist: 4 Gait Assistive Device: FWW PT Intermediate Goals Resource Coordinator Goals PT Intermediate Goals Time Frame: Dec 01, 2018 Transfers (B,C,W/C) (FIM): 6 Sit to Lying (QC): 6 Lying-Sitting on Side/Bed(QC): 6 Sit to Stand (QC): 6 Rollin Roll Left to Right (QC): 6 Chair/Ujc-ry-Abjzn Xfer(QC): 6 Car Transfer (QC): 5 Gait (FIM): 5 Gait distance (FIM): 3=150 ft Distance: 150 Walk 10 feet (QC): 6 Walk 10ft-Uneven Surface(QC): 6 Walk 50ft with 2 Turns (QC): 6 Walk 150 ft (QC): 6 Gait Assistive Device: FWW Wheel 50 feet with 2 turns (QC: 9 Stairs (FIM): 9 1 Step (curb) (QC): 5 4 Steps (QC): 9 12 Steps (QC): 9 Stairs Level Of Assist: 5 Picking up an Object (QC): 9 PT Plan Problem List Problem List: Activity Tolerance, Functional Strength, Safety, Balance, Gait, Transfer, Bed Mobility, ROM Treatment/Plan Treatment Plan: Continue Plan of Care Treatment Plan: Bed Mobility, Education, Functional Activity Cintia, Functional Strength, Gait, Safety, Therapeutic Exercise Treatment Duration: Dec 01, 2018 Frequency: At least 5 of 7 days/Wk (IRF) Estimated Hrs Per Day: 1.5 hours per day Patient and/or Family Agrees t: Yes Safety Risks/Education Patient Education: Gait Training, Transfer Techniques, Steps, Correct Positioning, Safety Issues Teaching Recipient: Patient Teaching Methods: Demonstration, Discussion Response to Teaching: Reinforcement Needed Time/GCodes Time In: 1115 Time Out: 1135 Total Billed Treatment Time: 20 Total Billed Treatment 1 visit FA 20' GLORY STOKES PT Nov 29, 2018 11:38
--- NOTE | 2018-11-29 11:46 | Therapy Team Discharge Summary ---
Therapy Discharge Summary Discharge Recommendations Date of Discharge Physical Therapy Patient came to rehab with acute renal failure and fall. Upon evaluation patient performed bed mobility with min/mod assist, supine to sit with mod assist, sit to stand with min assist, transfers with CGA, car transfer min assist. Patient has been performing bed mobility and transfer training, balance and endurance training, functional strengthening, stair training, gait training, and education. Patient has made fair progress but has only met her LTG's for bed mobility and transfers. Now, patient performs bed mobility with mod I, supine <-> sit with mod I, sit <-> stand with SBA, transfers with SBA, car transfer SBA, ambulates 150' with a rolling walker with SBA (including 50' with at least 2 turns of 90 degrees and 10' over an uneven surface), and can go up and down 1 step using a rolling walker with min assist. Patient is discharging from this facility today and will be discharged from PT at this time. Occupational Therapy Decreased Activ Tolerance, Decreased UE Strength, Dependent Transfers, Impaired Funct Balance, Impaired I ADL's, Impaired Self-Care Skills, Restricted Funct UE ROM PT Prison Goals Prison Goals PT Forms Examiner Goals Time Frame: Dec 01, 2018 Transfers (B,C,W/C) (FIM): 6 Roll Left to Right (QC): 6 Sit to Lying (QC): 6 Lying-Sitting on Side/Bed(QC): 6 Sit to Stand (QC): 6 Chair/Elv-ss-Zrhlv Xfer(QC): 6 Car Transfer (QC): 5 Gait (FIM): 5 Gait distance (FIM): 3=150 ft Distance: 150 Walk 10 feet (QC): 6 Walk 10ft-Uneven Surface(QC): 6 Walk 50ft with 2 Turns (QC): 6 Walk 150 ft (QC): 6 Gait Assistive Device: FWW Wheel 50 feet with 2 turns (QC: 9 Stairs (FIM): 9 1 Step (curb) (QC): 5 4 Steps (QC): 9 12 Steps (QC): 9 Stairs Level Of Assist: 5 Picking up an Object (QC): 9 OT Forms Examiner Goals Forms Examiner Goals Time Frame: Dec 14, 2018 Eating (FIM): 7 Eating (QC): 6 Oral Hygiene (QC): 6 Grooming(FIM): 6 Bathing(FIM): 5 Shower/Bathe Self (QC): 4 Upper Body Dressing(FIM): 5 Upper Body Dressing (QC): 4 Lower Body Dressing(FIM): 5 Lower Body Dressing (QC): 4 On/Off Footwear (QC): 4 Toileting(FIM): 6 Toileting Hygiene (QC): 6 Transfers (B,C,W/C) (FIM): 6 Toilet/Commode Transfer(FIM): 6 Toilet/Commode Transfer (QC): 6 Shower Transfer(FIM): 5 Additional Goals: 1-Demonstrate ADL Tasks, 2-Verbalize Understanding, 3- ImproveStrength/Cintia 1=Demonstrate adherence to instructed precautions during ADL tasks. 2=Patient will verbalize/demonstrate understanding of assistive devices/modifications for ADL. 3=Patient will improve strength/tolerance for activity to enable patient to perform ADL's. GLORY STOKES PT Nov 29, 2018 11:46
--- NOTE | 2018-11-29 12:04 | NUR ---
Met with patient this morning to discuss today's anticipated discharge to [facility]. Patient states she is ready for dismissal; niece present for transport. IMM formed signed. Confirmed dc with [facility] (PT/OT).
--- NOTE | 2018-11-29 12:14 | Occupational Ther Daily Note ---
OT Current Status-Daily Note Subjective No pain reported. Pt. reports that someone from [facility] will assist her with ADLs as needed. Appearance Pt. up in chair. Agrees to work with OT. Mental Status/Objective Patient Orientation: Person, Place, Time, Situation Therapy Code Descriptions/Definitions Functional [place] Measure: 0=Not Assessed/NA 4=Minimal Assistance 1=Total Assistance 5=Supervision or Setup 2=Maximal Assistance 6=Modified [place] 3=Moderate Assistance 7=Complete [place] ADL-Treatment Therapy Code Descriptions/Definitions Functional [place] Measure: 0=Not Assessed/NA 4=Minimal Assistance 1=Total Assistance 5=Supervision or Setup 2=Maximal Assistance 6=Modified [place] 3=Moderate Assistance 7=Complete [place] Therapy Quality Codes: 6 Independent with activity with or without an assistive device 5 Patient requires set up or clean up by helper. Patient completes activity by themselves 4 Supervision or touching assist (CGA). [place] provide cues , steadying assist 3 The helper provides less than half the effort to complete the activity 2 The helper provides more than half the effort to complete the activity 1 Dependent. The helper does all the effort to complete an activity 7 Patient refused to complete or attempt activity 9 The patient did not perform the activity before the current illness or injury 88 Not attempted due to Medical conditions or safety concerns Eating (FIM): 6 Eating (QC): 6 Grooming (FIM): 4 (Assist to comb hair.) Oral Hygiene (QC): 4 Bathing (FIM): 4 (Assistance to wash darya area.) Shower/Bathe Self (QC): 4 Upper Body (FIM): 5 Upper Body Dressing (QC): 4 Lower Body Dressing (FIM): 3 (Pt. requires assistance to don brief over feet and hips, and shorts over hips. Assist to don slipper socks. Utilized AE.) Lower Body Dressing (QC): 3 On/Off Footwear (QC): 3 Toileting (FIM): 4 Toileting Hygiene (QC): 4 Transfers (B, C, W/C) (FIM): 5 Toilet/Commode Transfer (FIM): 5 Toilet Transfer (QC): 4 Shower Transfer(FIM): 5 Education OT Patient Education: Correct positioning, Modified ADL techniques, Progress toward Goal/Update tx plan, Purpose of tx/functional activities, Reviewed precautions, Rehab process, Transfer techniques Teaching Recipient: Patient Teaching Methods: Demonstration, Discussion Response to Teaching: Verbalize Understanding, Return Demonstration OT Short Term Goals Short Term Goals Time Frame: Nov 30, 2018 Eating(FIM): 5 Grooming(FIM): 4 Bathing(FIM): 3 Upper Body Dressing(FIM): 3 Lower Body Dressing(FIM): 3 Toileting(FIM): 3 Transfers (B,C,W/C) (FIM): 4 Toilet/Commode Transfer(FIM): 4 Shower Transfer(FIM): 3 Additional Short Term Goals: 1-Demonstrate ADL Tasks, 2-Verbalize Understanding, 3-ImproveStrength/Cintia 1=Demonstrate adherence to instructed precautions during ADL tasks. 2=Patient will verbalize/demonstrate understanding of assistive devices/modifications for ADL. 3=Patient will improve strength/tolerance for activity to enable patient to perform ADL's. OT Knowledge Management Advisor Goals Fpc Goals Time Frame: Dec 14, 2018 Eating (FIM): 7 Eating (QC): 6 Groomin Oral Hygiene (QC): 6 Bathing(FIM): 5 Shower/Bathe Self (QC): 4 Upper Body Dressing(FIM): 5 Upper Body Dressing (QC): 4 Lower Body Dressing(FIM): 5 Lower Body Dressing (QC): 4 On/Off Footwear (QC): 4 Toileting(FIM): 6 Toileting Hygiene (QC): 6 Transfers (B,C,W/C) (FIM): 6 Toilet/Commode Transfer(FIM): 6 Toilet/Commode Transfer (QC): 6 Shower Transfer(FIM): 5 Additional Goals: 1-Demonstrate ADL Tasks, 2-Verbalize Understanding, 3- ImproveStrength/Cintia 1=Demonstrate adherence to instructed precautions during ADL tasks. 2=Patient will verbalize/demonstrate understanding of assistive devices/modifications for ADL. 3=Patient will improve strength/tolerance for activity to enable patient to perform ADL's. OT Education/Plan Problem List/Assessment Assessment: Decreased Activ Tolerance, Impaired I ADL's, Impaired Self-Care Skills Discharge Recommendations Plan/Recommendations: Continue POC Therapy Discharge Recommendati: Assisted Living, Post Acute OT Equpiment Recommendations-D/C: Hip Kit Treatment Plan/Plan of Care Treatment,Training & Education: Yes Patient would benefit from OT for education, treatment and training to promote independence in ADL's, mobility, safety and/or upper extremity function for ADL's. Plan of Care: ADL Retraining, Functional Mobility, Group Exercise/Act as Ind, UE Funct Exercise/Act Treatment Duration: Dec 14, 2018 Frequency: At least 5 of 7 days/Wk (IRF) Estimated Hrs Per Day: 1.5 hours per day Agreement: Yes Rehab Potential: Fair Time/GCodes Start Time: 08:25 Stop Time: 09:10 Total Time Billed (hr/min): 45 Billed Treatment Time 1, ADL x 3 CURT GILLESPIE OT Nov 29, 2018 12:14
--- NOTE | 2018-11-29 12:18 | Therapy Team Discharge Summary ---
Therapy Discharge Summary Discharge Recommendations Date of Discharge 11-29-18 Therapy D/C Recommendations: Assisted Living, Occupational Therapy Home Care Occupational Therapy Pt. seen by occupational therapy to increase overall strength and independence. Pt. has met approximately 50% of goals. Still requires assistance with LE dressing, toileting, and bathing. Pt. will discharge to assisted living facility, and states that she will have assistance there with ADLs. Pt. would benefit from ADL equipment and further OT treatment. Decreased Activ Tolerance, Impaired I ADL's, Impaired Self-Care Skills PT Custodial Goals Skates Operator Goals PT Skates Operator Goals Time Frame: Dec 01, 2018 Transfers (B,C,W/C) (FIM): 6 Roll Left to Right (QC): 6 Sit to Lying (QC): 6 Lying-Sitting on Side/Bed(QC): 6 Sit to Stand (QC): 6 Chair/Itm-so-Siqws Xfer(QC): 6 Car Transfer (QC): 5 Gait (FIM): 5 Gait distance (FIM): 3=150 ft Distance: 150 Walk 10 feet (QC): 6 Walk 10ft-Uneven Surface(QC): 6 Walk 50ft with 2 Turns (QC): 6 Walk 150 ft (QC): 6 Gait Assistive Device: FWW Wheel 50 feet with 2 turns (QC: 9 Stairs (FIM): 9 1 Step (curb) (QC): 5 4 Steps (QC): 9 12 Steps (QC): 9 Stairs Level Of Assist: 5 Picking up an Object (QC): 9 OT Custodial Goals Skates Operator Goals Time Frame: Dec 14, 2018 Eating (FIM): 7 (not met) Eating (QC): 6 (met) Oral Hygiene (QC): 6 (not met) Grooming(FIM): 6 (not met) Bathing(FIM): 5 (not met) Shower/Bathe Self (QC): 4 (met) Upper Body Dressing(FIM): 5 (met) Upper Body Dressing (QC): 4 (met) Lower Body Dressing(FIM): 5 (not met) Lower Body Dressing (QC): 4 (not met) On/Off Footwear (QC): 4 (not met) Toileting(FIM): 6 (not met) Toileting Hygiene (QC): 6 (not met) Transfers (B,C,W/C) (FIM): 6 (not met) Toilet/Commode Transfer(FIM): 6 (not met) Toilet/Commode Transfer (QC): 6 (not met) Shower Transfer(FIM): 5 (met) Additional Goals: 1-Demonstrate ADL Tasks, 2-Verbalize Understanding, 3- ImproveStrength/Cintia 1=Demonstrate adherence to instructed precautions during ADL tasks. 2=Patient will verbalize/demonstrate understanding of assistive devices/modifications for ADL. 3=Patient will improve strength/tolerance for activity to enable patient to perform ADL's. CURT GILLESPIE OT Nov 29, 2018 12:18
== END 2018-11-29 13:15 | disposition home health service (06) | DRG 92 ==
PROVIDERS: ADMIT Internal Medicine; ATTEND Internal Medicine
DX: R29.6 Repeated falls (principal); S00.83XD Contusion of other part of head, subsequent encounter; I82.413 Acute embolism and thrombosis of femoral vein, bilateral; R32 Unspecified urinary incontinence; R60.0 Localized edema; M19.011 Primary osteoarthritis, right shoulder; F41.9 Anxiety disorder, unspecified; F32.9 Major depressive disorder, single episode, unspecified; Z68.41 Body mass index [BMI] 40.0-44.9, adult; E66.9 Obesity, unspecified; N32.81 Overactive bladder; K21.9 Gastro-esophageal reflux disease without esophagitis; K57.90 Diverticulosis of intestine, part unspecified, without perforation or abscess without bleeding; K44.9 Diaphragmatic hernia without obstruction or gangrene; Z86.718 Personal history of other venous thrombosis and embolism; Z86.711 Personal history of pulmonary embolism
CPT/HCPCS: 36415; 73030; 80053; 83540; 85025; 85027; 93970